=== PATIENT | male | born 1955 | race Caucasian/White ===

== ENCOUNTER 2022-12-29 06:58 | Outpatient (OUT) | payer MEDICARE, SELFPAY ==
--- NOTE | 2022-12-29 | XR_ITS ---
The [address] [address] Patient Name: TRACY IRENE MRN: [id number] date: 1955 Sex: M Assigned Patient Location: CT Current Patient Location: CT Accession/Order Number: [id number] Exam Date: 12/29/2022 08:10 Report Date: 12/29/2022 22:43 At the request of: LEON SNOW Procedure: XR chest 2V PROCEDURE: XR chest 2V DATE: 12/29/2022 7:10 AM CDT COMPARISONS: 12/12/2021 CLINICAL INDICATION: 67 years Male HISTORY OF RENAL CELL CANCER, ELEVATED PSA FINDINGS: The cardiomediastinal silhouette and pulmonary vasculature are within normal limits. The lungs are clear. There is no evidence of pleural effusion or pneumothorax. IMPRESSION: Chest radiograph is within normal limits. Electronically authenticated by: MIKE LITTLE Date: 12/29/2022 22:43
--- NOTE | 2022-12-29 | CT_ITS ---
The [address] [address] Patient Name: TRACY IRENE MRN: [id number] date: 1955 Sex: M Assigned Patient Location: CT Current Patient Location: CT Accession/Order Number: [id number] Exam Date: 12/29/2022 08:15 Report Date: 12/30/2022 09:51 At the request of: LEON SNOW Procedure: CT abdomen pelvis wo con CLINICAL HISTORY: HISTORY OF RENAL CELL CANCER, ELEVATED PSA. History of renal cell carcinoma. EXAMINATION: Unenhanced CT scan of the abdomen and pelvis: 12/29/2022. COMPARISON: Unenhanced CT scan of the abdomen and pelvis: 12/12/2021. TECHNIQUE: 3 mm axial images from lung bases through ischial tuberosities without intravenous, however, with oral contrast were obtained. Sagittal, coronal reconstructions were also performed. FINDINGS: This study overall is limited secondary to lack of intravenous contrast. Within limits the lung bases demonstrate no focal abnormalities. The heart size seems normal. CT ABDOMEN: For a noncontrast study the liver, spleen, gallbladder, pancreas, adrenal glands, left kidney appears normal. The patient has undergone previous right nephrectomy. The abdominal aorta is moderately atherosclerotic. There is no retroperitoneal or mesenteric adenopathy. There is a ventral hernia with omental fat without bowel loops with hernia neck measuring 3.3 cm. The bowel loops are of normal caliber. There is a normal-appearing appendix. There are scattered diverticula in the colon. CT PELVIS: The bladder is normal. The prostate is enlarged. The overall size of the prostate seems to be approximately 4.7 x 4.8 cm. There is no ureterolithiasis. There is no pelvic adenopathy. The visualized soft tissues seem normal. IMPRESSION: 1. No recurrent or metastatic disease in the visualized volume of lower chest, abdomen or pelvis on this noncontrast CT examination. 2. Prior right nephrectomy. 3. Prostatomegaly, stable. Electronically authenticated by: HAMZAH WOLFE Date: 12/30/2022 09:51
[2022-12-29 11:54] LABS: Prostate Specific Antigen Dx 1.86 ng/mL (<=4.00)
== END 2022-12-29 06:59 | disposition home or self-care (01) ==
LOC: CT 06:59
PROVIDERS: PCP Internal Medicine; Visit Provider Urology
DX: R97.20 Elevated prostate specific antigen [PSA] (principal); Z85.528 Personal history of other malignant neoplasm of kidney; Z90.5 Acquired absence of kidney
CPT/HCPCS: 36415; 71046; 74176; 84153

== ENCOUNTER 2024-01-03 11:00 | Outpatient (OUT) | payer MEDICARE, SELFPAY ==
[2024-01-03 12:13] LABS: Prostate Specific Antigen Dx 1.54 ng/mL (<=4.00)
== END 2024-01-03 11:01 | disposition home or self-care (01) ==
LOC: LAB 11:02
PROVIDERS: PCP Internal Medicine; Visit Provider Urology
DX: R97.20 Elevated prostate specific antigen [PSA] (principal); Z80.42 Family history of malignant neoplasm of prostate
CPT/HCPCS: 36415; 84153

== ENCOUNTER 2025-01-01 08:37 | Emergency (ER) | payer MEDICARE, SELFPAY ==
[2025-01-01] VITALS (38 sets, daily range): BP systolic 133–170; BP diastolic 72–80; PULSE 64–99; TEMP 37; O2SAT 91–96; BMI 33.0
--- OUTSIDE RECORDS SUMMARY | 2025-01-01 08:44 | XMS_ITS | Encounter Summary ---
Author Organization [facility] Address [address] [place] [address] Care Team Providers Care Vibrator Equipment Tester Name Role Phone Nino Hammonds MD Unavailable [phone] Nino Hammonds MD Primary Care Provider [phone] Encounter Details Date Type Department Care Team (Late Contact Info) Description 01/13/2023 Abstract [facility] [address] [facility] [address] [place] [phone] Nino Hammonds MD [address] [facility] 110 [place] [address] Social History Tobacco Use Types Packs/Day Years Used Date Smoking Tobacco: Never Assessed PHQ-2 Answer Date Recorded Patient Health Questionnaire-2 Score 0 01/02/2023 Sex and Gender Information Value Date Recorded Sex Assigned at Not on file Legal Sex Male 9:31 PM EDT Gender Identity Not on file Sexual Orientation Not on file documented as of this encounter Plan of Treatment Upcoming Encounters Date Type Department Care Team (Late Contact Info) Description 02/18/2025 10:00 AM EDT Office Visit [facility] [address] [facility] [address] [place] [phone] Nino Hammonds MD [address] [facility] [address] [place] [address] documented as of this encounter Visit Diagnoses Not on filedocumented in this encounter Care Teams Vibrator Equipment Tester Relationship Specialty Start Date End Date Nino Hammonds MD [address] [facility] [address] [place] [address] PCP - ACO Reach 11/29/22 Nino Hammonds MD 112 [facility] 110 [place] [address] PCP - General Internal Medicine 12/26/22 documented as of this encounter
--- OUTSIDE RECORDS SUMMARY | 2025-01-01 08:44 | XMS_ITS | Clinical Summary ---
Author Organization [facility] Address [address] [place] [address] Care Team Providers Care Co Op Name Role Phone Nino Hammonds MD Unavailable [phone] Nino Hammonds MD Primary Care Provider [phone] Allergies No known active allergies Medications Lancet Devices (Autolet) lancing device 1 each by Other route in the morning and 1 each at noon and 1 each in the evening and 1 each before bedtime. Active Lancets (OneTouch Delica Plus [id number]) [facility] USE TWICE DAILY FOR FINGER STICK E11.65 022 Active aspirin 81 MG EC tablet Take 81 mg by mouth Daily Active lisinopril 5 MG tabletIndication s:Mixed hyperlipidemia TAKE 1 TABLET BY MOUTH EVERY DAY 100 tablet 4 024 Active terazosin (Hytrin) 5 MG capsuleIndicatio ns:BPH with urinary obstruction TAKE 1 CAPSULE BY MOUTH EVERY DAY 100 capsule 3 024 Active lovastatin (Mevacor) 20 MG tabletIndication s:Mixed hyperlipidemia TAKE 1 TABLET BY MOUTH AT BEDTIME 100 tablet 3 024 Active insulin regular (NovoLIN R FlexPen) 100 UNIT/ML penIndications:T ype 2 diabetes mellitus with diabetic neuropathy, with long-term current use of insulin (HCC) INJECT 30 UNITS SUBCUTANEOUSLY ONCE IN THE EVENING BEFORE MEAL 30 mL 3 024 Active finasteride (Proscar) 5 MG tabletIndication s:Benign prostatic hyperplasia with lower urinary tract symptoms, symptom details unspecified TAKE 1 TABLET BY MOUTH EVERY DAY IN THE MORNING 90 tablet 4 025 Active insulin glargine-lixisen atide (Soliqua) 100-33 UNT-MCG/ML penIndications:U ncontrolled type 2 diabetes mellitus with hyperglycemia (HCC) Inject 60 Units under the skin in the morning. Inject before meals. 15 mL 11 Active insulin pen needle (BD Pen Needle Mery 2nd Gen) 32G x 4 mm miscIndications: Type 2 diabetes mellitus with diabetic neuropathy, with long-term current use of insulin (HCC) USE TWICE A DAY DIRECTED 200 each 3 Active finasteride (Proscar) 5 MG tabletIndication s:Benign prostatic hyperplasia with lower urinary tract symptoms, symptom details unspecified TAKE 1 TABLET BY MOUTH EVERY DAY IN THE MORNING 90 tablet 4 024 2024 Discontinued insulin glargine-lixisen atide (Soliqua) 100-33 UNT-MCG/ML penIndications:U ncontrolled type 2 diabetes mellitus with hyperglycemia (HCC) INJECT 60 UNITS UNDER THE SKIN IN THE MORNING BEFORE MEALS 18 mL 024 2024 Discontinued insulin pen needle (BD Pen Needle Mery 2nd Gen) 32G x 4 mm miscIndications: Type 2 diabetes mellitus with diabetic neuropathy, with long-term current use of insulin (HCC) USE TWICE A DAY DIRECTED 100 each 3 024 2024 Discontinued glucose blood (LDL TechnologyTouch Ultra) test stripIndications :Type 2 diabetes mellitus with diabetic neuropathy, unspecified whether residential insulin use (HCC) 1 each by Other route in the morning and 1 each in the evening and 1 each before bedtime. Use as instructedTEST 3 TIMES DAILY DIRECTED E11.65. 300 strip 2 025 2024 insulin glargine-lixisen atide (Soliqua) 100-33 UNT-MCG/ML penIndications:U ncontrolled type 2 diabetes mellitus with hyperglycemia (HCC) INJECT 60 UNITS UNDER THE SKIN IN THE MORNING BEFORE MEALS 15 mL 025 2024 Discontinued(R eorder) Active Problems Problem Noted Date Diagnosed Date Obesity, Class I, BMI 30-34.9 02/24/2024 Elevated PSA 03/04/2023 Protein in urine 03/04/2023 Pulmonary embolism 03/04/2023 History of colon polyps 03/04/2023 BPH with obstruction/lower urinary tract symptom s 12/29/[address] 12/29/2022 Hypercoagulable state ([facility]) 12/29/2022 Other obstructive and reflux uropathy 12/29/2022 Stage 3b chronic kidney disease 12/29/2022 Tubulovillous adenoma of colon 12/29/2022 Type 2 diabetes mellitus wit h diabetic neuropathy, with long-term current use of insulin 12/29/2022 Mixed hyperlipidemia 10/31/2018 Diabetic peripheral neuropat hy associated with type 2 diabetes mellitus 10/31/2018 Benign neoplasm of colon 10/31/2018 History of primary malignant neoplasm of kidney 10/31/2018 long-term current use of anticoagulant therapy 0 10/31/2018 History of DVT (deep vein thrombosis) 10/30/2018 History of pulmonary embolism 10/30/2018 Resolved Problems Problem Noted Date Diagnosed Date Resolved Date Anticoagulated 03/04/2023 07/31/2023 Family history of prostate cancer 03/04/2023 07/31/2023 Hesitancy 03/04/2023 07/31/2023 Weak urinary stream 03/04/2023 07/31/19 24 Renal mass 12/29/2022 07/31/2023 Type 2 diabetes mellitus 12/12/2018 Uncontrolled type 2 diabetes mellitus with hyperglycemia 12/12/2018 07/31/2023 Stage 3 chronic kidney disease 10/31/2018 07/31/2023 Hyperglycemia due to type 2 diabetes mellitus 10/31/1907/31/2023 Encounters Date Type Department Care Team Description 12/24/2024 Refill [facility] [address] [place] [address] [place] [address] Nino Hammonds MD Type 2 diabetes mellitus with diabetic neuropathy, with long-term current use of insulin ([facility]) 12/17/2024 Telephone [facility] [address] [facility] [address] [place] [address] Nino Hammonds MD 12/17/2024 Refill [facility] [address] [facility] [address] [place] [address] Nino Hammonds MD Benign prostatic hyperplasia with lower urinary tract symptoms, symptom details unspecified 12/09/2024 Refill [facility] [address] [facility] [address] [place] [address] Nino Hammonds MD Uncontrolled type 2 diabetes mellitus with hyperglycemia (HCC) 10/26/2024 9:00 AM EDT Office Visit [facility] [address] [facility] [address] [place] [address] Nino Hammonds MD Routine general medical examination at health care facility (Primary Dx); ACP (advance care planning); Type 2 diabetes mellitus with diabetic chronic kidney disease (HCC); Chronic kidney disease, stage 3b (CMS-HCC); Chronic pulmonary embolism (HCC) 10/26/2024 Abstract [facility] [address] [facility] [address] [place] [address] Nino Hammonds MD 10/26/2024 Bamboo flowsheet [facility] [address] [facility] [address] [place] [address] Nino Hammonds MD 10/26/2024 Travel from Last 3 Months Immunizations Immunization Administration Dates Next Due Influenza, High Dose Seasona l, Preservative Free 05/04/2022,05/31/2021 Influenza, High-dose Seasona l, Quadrivalent, Preservative Free 06/25/2024 Influenza, Seasonal, Quadriv alent, Adjuvanted 07/14/2020 Influenza, injectable, quadr ivalent, preservative free 07/14/2020 Pfizer Purple Cap SARS-CoV-2 Vaccination 021,09/29/2020,09/09/2020 Family History Medical History Relation Name Comments Arthritis Father Cancer Father Arthritis Mother Diabetes Mother Stroke Mother Relation Name Status Comments Father Mother Other Spouse Alive Social History Tobacco Use Types Packs/Day Years Used Date Smoking Tobacco: Former Cigarettes 3 40 0 07/08/1959 - 07/08/1999 Smokeless Tobacco: Never Alcohol Use Standard Drinks/Week Comments Yes 0 (1 standard drink = 0.6 oz pur e alcohol) PHQ-2 Answer Date Recorded Patient Health Questionnaire-2 Score 0 10/26/2024 Sex and Gender Information Value Date Recorded Sex Assigned at Not on file Legal Sex Male 9:31 PM EDT Gender Identity Not on file Sexual Orientation Not on file Last Filed Vital Signs Vital Sign Reading Time Taken Comments Blood Pressure 130/76 10/26/2024 8:56 AM EDT Pulse 66 10/26/2024 8:56 AM EDT Temperature - - Respiratory Rate 16 10/30/2023 10:27 AM EDT Oxygen Saturation 98% 10/26/2024 8:56 AM EDT Inhaled Oxygen Concentration - - Weight 111 kg (244 lb) 10/26/2024 8:56 AM EDT Height 185.4 cm (6' 1 ) 10/26/2024 8:56 AM EDT Body Mass Index 32.19 10/26/2024 8:56 AM EDT Plan of Treatment Upcoming Encounters Date Type Department Care Team (Late st Contact Info) Description 02/18/2025 10:00 AM EDT Office Visit [facility] 112 [facility] 110 [place] [address] Nino Hammonds MD 112 [facility] 110 [place], [place] [id number] Health Maintenance Due Date Last Done Comments CT Colonography 1955 FIT-DNA 1955 FIT 1955 FOBT 1955 Sigmoidoscopy 1955 Pneumococcal Vaccine: 65+ Ye ars (1 of 2 - PCV) 1973 Diabetes: Hemoglobin A1C 01/25/2025 025, 06/25/2024, 02/24/2024, Additional history exists Diabetes: Urine Protein Screening 02/13/2025 024 Medicare Annual Wellness (AWV) 10/26/2025 0 10/26/2024, 07/31/2023, 01/02/2023, Additional history exists Diabetes: Retinopathy Screening 12/30/2025 12/31/2023, 11/15/2021, 11/19/2019, Additional history exists Colonoscopy 03/13/2033 03/13/2023, 0912/2022, 03/13/2023, Additional history exists Colorectal Cancer Screening 03/13/2033 Influenza Vaccine Completed 06/25/2024, , 05/31/2021, Additional history exists Procedures Procedure Name Priority Date/Time Associated Diagnosis Comments POCT GLYCATED HEMOGLOBIN, TOTAL Routine 10/26/2024 9:49 AM EDT Type 2 diabetes mellitus with diabetic chronic kidney disease (HCC) MICROALBUMIN / CREATININE URINE RATIO Routine 02/14/2024 8:21 AM EDT Type 2 diabetes mellitus with diabetic neuropathy, with long-term current use of insulin (HCC) DIABETIC RETINOPATHY SCREENING - OU - BOTH EYES Routine 12/31/2023 COLONOSCOPY DIAGNOSTIC Routine 03/13/2023 from Last 3 Months or Most Recently Relevant to Health Maintenance Results * POCT Glycated hemoglobin, total (10/26/2024 9:49 AM EDT) Hemoglobin A1C 7.2 Blood 10/26/2024 9:49 AM EDT Nino Hammonds MD POINT OF CARE TEST ENTER/EDIT ORDERABLES Final Result * (ABNORMAL) Microalbumin / creatinine urine ratio (02/14/2024 8:21 AM EDT) CREATININE, RANDOM URINE 74 20 - 320 mg/dL [facility] ALBUMIN, URINE 18.8 See Note: mg/dL [facility] Comment: Reference Range: Reference Range Not established ALBUMIN/CREATININE RATIO, RANDOM URINE 254(H) <30 mg/g creat [facility] Comment: The ADA defines abnormalities in albumin excretion as follows: Albuminuria Category Result (mg/g creatinine) Normal to Mildly increased <30 Moderately increased 30-299 Severely increased > OR = 300 The ADA recommends that at least two of three specimens collected within a 3-6 month period be abnormal before considering a patient to be within a diagnostic category. Urine Urine specimen obtained by clean catch procedure / Unknown 02/14/2024 8:21 AM EDT 02/14/2024 3:12 PM EDT Narrative [facility] - 02/17/2024 3:53 PM EDT FASTING:YES FASTING: YES Resulting Agency Comment Performing Organization Information Site ID: [id number] Name: [facility] Address: [address] [place] [address], [address] [place], [place] [id number] Director: Nathanael Muñoz MD Nino Hammonds MD LAB URINE ORDERABLES Final Res ult [facility] * Diabetic Retinopathy Screening - OU - Both Eyes (12/31/2023) RESULTS ndr Anatomical Region Laterality Modality Head Other 12/31/2023 Nino Hammonds MD OPHTH PHOTOGRAPHY Final Result * COLONOSCOPY DIAGNOSTIC (03/13/2023) Anatomical Region Laterality Modality Radiographic Verna ging 03/13/2023 Nino Hammonds MD IMG XR PROCEDURES Final Result from Last 3 Months or Most Recently Relevant to Health Maintenance Insurance MEDICARE [employer] Care Teams Co Op Relationship Specialty Start Date End Date Nino Hammonds MD [address] [address] PCP - ACO Reach 11/29/22 Nino Hammonds MD [address] [address] PCP - General Internal Medicine 12/26/22
--- OUTSIDE RECORDS SUMMARY | 2025-01-01 08:44 | XMS_ITS | Encounter Summary ---
Author Organization [facility] Address [address] [place] [address] Care Team Providers Care Blanket Weaver Name Role Phone Nino Hammonds MD Unavailable [phone] Nino Hammonds MD Primary Care Provider [phone] Reason for Visit * Reason Comments Med Refill Encounter Details Date Type Department Care Team (Late Contact Info) Description 12/24/2024 Refill [facility] 112 [facility] 110 [place] [address] Nino Hammonds MD 112 [facility] 110 [place] [address] Type 2 diabetes mellitus with diabetic neuropathy, with long-term current use of insulin ([facility]) Social History Tobacco Use Types Packs/Day Years [...] Office Visit [facility] [address] [facility] 110 [place] [address] Nino Hammonds MD 112 [facility] 110 [place], [place] [phone] documented as of this encounter Visit Diagnoses Diagnosis Type 2 diabetes mellitus with diabetic neuropathy, with long-term current use of insulin (HCC) documented in this encounter Care Teams Blanket Weaver Relationship Specialty Start Date End Date Nino Hammonds MD [address] [address] PCP - ACO Reach 11/29/22 Nino Hammonds MD [address] [address] PCP - General Internal Medicine 12/26/22 documented as of this encounter
--- OUTSIDE RECORDS SUMMARY | 2025-01-01 08:44 | XMS_ITS | Encounter Summary ---
Author Organization [facility] Address [address] [place] [address] Care Team Providers Care Supervisor Fitting Name Role Phone Nino Hammonds MD Unavailable [phone] Nino Hammonds MD Primary Care Provider [phone] Encounter Details Date Type Department Care Team (Late st Contact Info) Description 10/26/2024 Abstract [facility] [address] [facility] 110 [place] [phone] Nino Hammonds MD [address] [facility] 110 [place], [place] [address] Social History Tobacco Use Types Packs/Day Years [...] on file documented as of this encounter Functional Status * Over the past 2 weeks, how often have you been bothered by any of the following problems? Question Answer Date of Assessment Author Little interest or pleasure in doing things Not at all 10/26/2024 8:00 AM Denita Rao LP N Feeling down, depressed, or hopeless Not at all 10/26/2024 8:00 AM EDT Denita Maxwell LP N Patient Health Questionnaire -2 Score 0 10/26/2024 8:00 AM EDT Dukles, Denita, LP N documented as of this encounter Plan of Treatment Upcoming Encounters Date Type Department Care Team (Late st Contact Info) Description 02/18/2025 10:00 AM EDT Office Visit [facility] [address] [facility] [address] [place] [address] Nino Hammonds MD [address] [facility] [address] [place] [address] documented as of this encounter Visit Diagnoses Not on filedocumented in this encounter Care Teams Supervisor Fitting Relationship Specialty Start Date End Date Nino Hammonds MD [address] [facility] [address] [place] [address] PCP - ACO Reach 11/29/22 Nino Hammonds MD [address] [facility] [address] [place] [address] PCP - General Internal Medicine 12/26/22 documented as of this encounter
--- OUTSIDE RECORDS SUMMARY | 2025-01-01 08:44 | XMS_ITS | Encounter Summary ---
Author Organization [facility] Address [address] [place] [address] Care Team Providers Care Smoke Eater Name Role Phone Nino Hammonds MD Unavailable [phone] Nino Hammonds MD Primary Care Provider [phone] Encounter Details Date Type Department Care Team ([facility] Contact Info) Description 06/12/2023 Abstract [facility] 112 [facility] 110 [place] [address] Nino Hammonds MD 112 [facility] 110 [place] [address] Social History Tobacco Use Types Packs/Day Years Used Date Smoking Tobacco: Former Cigarettes Q uit: 07/08/1999 Smokeless Tobacco: Never Alcohol Use Standard [...] EDT Office Visit [facility] 112 [facility] 110 [place] [address] Nino Hammonds MD 112 [facility] 110 [place] [address] documented as of this encounter Visit Diagnoses Not on filedocumented in this encounter Care Teams Smoke Eater Relationship Specialty Start Date End Date Nino Hammonds MD [address] [facility] 110 [place] [address] PCP - ACO Reach 11/29/22 Nino Hammonds MD [address] [facility] 110 [place] [address] PCP - General Internal Medicine 12/26/22 documented as of this encounter
--- OUTSIDE RECORDS SUMMARY | 2025-01-01 08:44 | XMS_ITS | Encounter Summary ---
Author Organization [facility] Address [address] [place] [address] Care Team Providers Care Hospital Ward Clerk Name Role Phone Nino Hammonds MD Unavailable [phone] Nino Hammonds MD Primary Care Provider [phone] Encounter Details Date Type Department Care Team ([facility] Contact Info) Description 07/10/2023 Abstract [facility] 112 [facility] 110 [place] [address] Nino Hammonds MD 112 [facility] 110 [place] [address] Social History Tobacco Use Types Packs/Day Years [...] Office Visit [facility] [address] [facility] 110 [place] [address] Nino Hammonds MD 112 [facility] 110 [place] [address] documented as of this encounter Visit Diagnoses Not on filedocumented in this encounter Care Teams Hospital Ward Clerk Relationship Specialty Start Date End Date Nino Hammonds MD [address] [facility] 110 [place] [address] PCP - ACO Reach 11/29/22 Nino Hammonds MD [address] [facility] [address] [place] [address] PCP - General Internal Medicine 12/26/22 documented as of this encounter
--- OUTSIDE RECORDS SUMMARY | 2025-01-01 08:44 | XMS_ITS | Encounter Summary ---
Author Organization [facility] Address [address] [place] [address] Care Team Providers Care Dry Cleaning Machine Operator Name Role Phone Nino Hammonds MD Unavailable [phone] Nino Hammonds MD Primary Care Provider [phone] Encounter Details Date Type Department Care Team ([facility] Contact Info) Description 08/06/2023 Abstract [facility] 112 [facility] 110 [place] [address] Nino Hammonds MD 112 [facility] 110 [place] [address] Social History Tobacco Use Types Packs/Day Years [...] Upcoming Encounters Date Type Department Care Team ([facility] Contact Info) Description 02/18/2025 10:00 AM EDT Office Visit [facility] [address] [facility] 110 [place] [address] Nino Hammonds MD 112 [facility] 110 [place] [address] documented as of this encounter Visit Diagnoses Not on filedocumented in this encounter Care Teams Dry Cleaning Machine Operator Relationship Specialty Start Date End Date Nino Hammonds MD [address] [facility] 110 [place] [address] PCP - ACO Reach 11/29/22 Nino Hammonds MD [address] [facility] [address] [place] [address] PCP - General Internal Medicine 12/26/22 documented as of this encounter
--- OUTSIDE RECORDS SUMMARY | 2025-01-01 08:44 | XMS_ITS | Encounter Summary ---
Author Organization [facility] Address [address] [place] [address] Care Team Providers Care Coat Cutter Name Role Phone Nino Hammonds MD Unavailable [phone] Nino Hammonds MD Primary Care Provider [phone] Encounter Details Date Type Department Care Team ([facility] Contact Info) Description 02/25/2024 Abstract [facility] [address] [facility] [address] [place] [id number] Nino Hammonds MD 112 [facility] [address] [place] [address] Social History Tobacco Use Types Packs/Day Years [...] Upcoming Encounters Date Type Department Care Team ([facility] Contact Info) Description 02/18/2025 10:00 AM EDT Office Visit [facility] [address] [facility] [address] [place] [phone] Nino Hammonds MD 112 [facility] [address] [place] [address] documented as of this encounter Visit Diagnoses Not on filedocumented in this encounter Care Teams Coat Cutter Relationship Specialty Start Date End Date Nino Hammonds MD [address] [facility] [address] [place] [address] PCP - ACO Reach 11/29/22 Nino Hammonds MD [address] [facility] [address] [place] [address] PCP - General Internal Medicine 12/26/22 documented as of this encounter
--- OUTSIDE RECORDS SUMMARY | 2025-01-01 08:45 | XMS_ITS | CCD ---
Author Organization [facility] Care Team Providers Care 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 Name Role Phone NINO HAMMONDS Primary Care Physician DR NINO HAMMONDS Primary Care Unavailable EDY, DR QUINTERO Admitting Unavailable EDY, DR QUINTERO Attending Unavailable LUCIANA, DR THOMAS Primary Care Unavailable EDY, DR QUINTERO Admitting Unavailable EDY, DR QUINTERO Consulting Unavailable EDY, DR QUINTERO Attending Unavailable BRODERICK, DR TUAN Dalton Consulting Unavailable AIDAN HDEZ Consulting Unavailable Nino Hammonds MD Unavailable Nino Hammonds MD Primary Care Provider NINO HAMMONDS Attending Unavailable NINO HAMMONDS Attending Unavailable NINO HAMMONDS Attending Unavailable NINO HAMMONDS Attending Unavailable Clifton JURADO Attending Unavailable Clifton JURADO Attending Unavailable Medications Current Medications Medication Drug Class(es) Dates Sig (Normalized) Sig (Original) aspirin 81 mg oral tablet (7 sources) Platelet Aggregation Inhibitor, Nonsteroidal Anti-inflammatory Drug Start: 06-26-2024 take 81 mg by mouth once daily aspirin 81 mg, Oral, Daily, Refills(s) 0 Start Date: 06/26/24 Status: Ordered take 1 tablet by mouth once dirk y aspirin 81 MG EC tablet Take 81 mg by mouth Daily Active finasteride 5 mg oral tablet (10 sources) 5-alpha Reductase Inhibitor Start: 12-04-2020 take 1 tablet by mouth once daily in the morning finasteride (Proscar) 5 MG tablet Indications: Benign prostatic hyperplasia with lower urinary tract symptoms, symptom details unspecified TAKE 1 TABLET BY MOUTH EVERY DAY IN THE MORNING 90 tablet 4 12/17/2023 Active 3 ml insulin glargine 100 unt/ml / lixisenatide 0.033 mg/ml pen injector (10 sources) Insulin Analog Start: 02-18-2024 insulin glargine-lixisenati de (Soliqua) 100-33 UNT-MCG/ML pen Indications: Uncontrolled type 2 diabetes mellitus with hyperglycemia (CMS/HCC) INJECT 60 UNITS UNDER THE SKIN IN THE MORNING BEFORE MEALS 18 mL 11 02/18/2024 Active Start: 01-23-2021 Soliqua 100/33 subcutaneous solution unit(s), SubCutaneous, Refills(s) 0 Start Date: 01/23/21 Status: Ordered 3 ml insulin lispro 100 unt/ml pen injector (2 sources) Insulin Analog Start: 01-28-2023 HumaLOG KwikPen 100 units/mL injectable solution Refills(s) 0 Start Date: 01/28/23 Status: Ordered 3 ml insulin, regular, human 100 unt/ml pen injector (6 sources) Insulin Start: 05-15-2024 insulin regular (NovoLIN R FlexPen) 100 UNIT/ML pen Indications: Type 2 diabetes mellitus with diabetic neuropathy, with long-term current use of insulin (CMS/HCC) INJECT 30 UNITS SUBCUTANEOUSLY ONCE IN THE EVENING BEFORE MEAL 30 mL 3 05/15/2024 Active lisinopril 5 mg oral tablet (10 sources) Angiotensin Converting Enzyme Inhibitor Start: 07-24-2019 take 1 tablet by mouth once daily lisinopril 5 MG tablet Indications: Mixed hyperlipidemia (CMS/HCC) TAKE 1 TABLET BY MOUTH EVERY DAY 100 tablet 4 03/16/2024 Active lovastatin 20 mg oral tablet (10 sources) HMG-CoA Reductase Inhibitor Start: 07-24-2019 take 1 tablet by mouth at bedtime lovastatin (Mevacor) 20 MG tablet Indications: Mixed hyperlipidemia (CMS/HCC) TAKE 1 TABLET BY MOUTH AT BEDTIME 100 tablet 3 05/15/2024 Active rivaroxaban 10 mg oral tablet (3 sources) Factor Xa Inhibitor Start: 01-23-2021 take 1 tablet by mouth once daily Xarelto 10 mg oral tablet 10 mg = 1 tab(s), Oral, Daily, Refills(s) 0 Start Date: 01/23/21 Status: Ordered terazosin 5 mg oral capsule (10 sources) alpha-Adrenergic Juarez Start: 07-24-2019 take 1 capsule by mouth once daily terazosin (Hytrin) 5 MG capsule Indications: BPH with urinary obstruction TAKE 1 CAPSULE BY MOUTH EVERY DAY 100 capsule 3 05/15/2024 Active Problems Active Problems Problem Classification Problem Date Documented Date Episodic/Chronic Administrative/socia l admission (4 sources) Counseling procedure with explicit context; 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: [Dietary counseling and surveillance] Episodic Cancer of kidney and renal pelvis (4 sources) Malignant tumor of kidney 07-23-2019 Chronic Chronic kidney disease (14 sources) Chronic kidney disease stage 3B ; 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: [Stage 3b chronic kidney disease (HCC)] Onset: 9 Resolved: 4 12-29-2022 Chronic Coagulation and hemorrhagic disorders (6 sources) Hypercoagulability state; 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: [Other primary thrombophilia] Onset: 3 12-29-2022 Chronic Diabetes mellitus with complications (20 sources) Peripheral neuropathy due to type 2 diabetes mellitus; 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: [Type 2 diabetes mellitus with diabetic polyneuropathy] Onset: 9 Resolved: 4 03-04-2023 Chronic Diabetes mellitus without complication (4 sources) Glycosuria 01-22-2020 Episodic Disorders of lipid metabolism (10 sources) Hyperlipidemia; 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: [Mixed hyperlipidemia] Onset: 9 01-12-2019 Chronic Hyperplasia of prostate (16 sources) Benign prostatic hypertrophy with outflow obstruction; 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: [Benign prostatic hyperplasia with lower urinary tract symptoms] Onset: 2 Chronic Immunizations and screening for infectious disease (2 sources) Needs influenza immunization; 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: [Encounter for immunization] 06-25-2024 Episodic Other aftercare (1 source) Long-term current use of insulin; 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: [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] Episodic Other circulatory disease (6 sources) Inferior vena cava filter in situ; 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: [Presence of other vascular implants and grafts] Onset: 3 12-29-2022 Chronic Other diseases of kidney and ureters (1 source) Other specified disorders of kidney and ureter; 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: [OTHER SPEC DISORDERS KIDNEY URETER] Onset: 2 Chronic Other nutritional; endocrine; and metabolic disorders (6 sources) Obese class I; 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: [Obesity, Class I, BMI 30-34.9] Onset: 4 02-24-2024 Chronic Pulmonary heart disease (6 sources) Chronic pulmonary embolism; 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: [Chronic pulmonary embolism] 07-23-2019 Chronic Residual codes; unclassified (2 sources) Family history of cancer; 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: [Family history of malignant neoplasm of prostate] Onset: 2 Episodic Unclassified (4 sources) Drug therapy finding 07-24-2019 Past or Other Problems Problem Classification Problem Date Documented Da te Episodic/Chronic Cancer of kidney and renal pelvis (12 sources) History of malignant neoplasm of kidney; 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: [Personal history of other malignant neoplasm of kidney] Onset: 10-31-2018 Episodic Diabetes mellitus without complication (16 sources) Diabetes mellitus; 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: [Type 2 diabetes mellitus] Onset: 12-12-2018 Resolved: 07-31-2023 07-23-2019 Chronic Genitourinary symptoms and ill-defined conditions (20 sources) Delay when starting to pass urine; 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: [Poor stream of urine] Onset: 03-04-2023 Resolved: 07-31-2023 01-12-2019 Episodic Other aftercare (6 sources) Long-term current use of anticoagulant; 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: [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) use of anticoagulants] Onset: 10-31-2018 03-04-2023 Episodic Other aftercare (6 sources) Drug therapy finding; 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: [alf (current) use of anticoagulants] Onset: 03-04-2023 Resolved: 07-31-2023 07-31-2023 Episodic Other and unspecified benign neoplasm (6 sources) Adenomatous polyp of colon ; 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: [Benign neoplasm of colon, unspecified] Onset: 12-29-2022 12-29-2022 Episodic Other and unspecified benign neoplasm (6 sources) Benign neoplasm of colon; 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: [Benign neoplasm of colon, unspecified] Onset: 10-31-2018 03-04-2023 Episodic Other and unspecified benign neoplasm (6 sources) History of polyp of colon; 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: [History of colon polyps] Onset: 03-04-2023 03-04-2023 Episodic Other diseases of kidney and ureters (10 sources) Renal mass; 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: [Other specified disorders of kidney and ureter] Onset: 12-29-2022 Resolved: 07-31-2023 01-12-2019 Chronic Other diseases of kidney and ureters (6 sources) Disorder of urinary tract; 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: [Other obstructive and reflux uropathy] Onset: 12-29-2022 12-29-2022 Episodic Other screening for suspected conditions (not mental disorders or infectious disease) (16 sources) Raised prostate specific antigen; 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: [Elevated prostate specific antigen [PSA]] Onset: 12-12-2021 Episodic Phlebitis; thrombophlebitis and thromboembolism (6 sources) H/O: Deep vein thrombosis; 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: [Personal history of other venous thrombosis and embolism] Onset: 10-30-2018 03-04-2023 Episodic Pulmonary heart disease (16 sources) Pulmonary embolism; 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: [H/O: pulmonary embolus] Onset: 10-30-2018 01-12-2019 Episodic Residual codes; unclassified (10 sources) Family history of prostate cancer; 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: [Family history of malignant neoplasm of prostate] Onset: 03-04-2023 Resolved: 07-31-2023 01-12-2019 Episodic Results Test Name Value Interpretation Reference Range Facil ity Reminderson 11-12-2024 Reminders Reminders From: Deanna Rosas To: EU - Recallyomi Jurado; Sent: 06/26/2024 11:45:55 EST Show up: 10/06/2024 11:45:00 EDT Subject: ct scan Due Date/Time: 11/02/2024 11:45:00 EDT Reminder/Recall Pt needs Ct scan Abd/Pelvis sched for December 2024 Orders faxed to [facility] today and pt was notified. Will monitor [facility] has order and Pt office appointment is now 06/28/25. Normal [facility] - Hematology and Cell countson 10-26-2024 HbA1c (Bld) [Mass fraction] 7.2 % [employer] No Panel Informationon 10-26 [employer] Ambulatory Visit Summaryon 1 08-27-2023 Ambulatory Visit Summary Ambulatory Visit Summary TRACY CARRILLO Anthony :1955 Visit Date:06/26/2024 Ambulatory Visit Instructions Your Diagnosis Elevated PSA H/O renal cell cancer BPH with urinary obstruction Family history of prostate cancer Your Care Team Attending Physician - EDY FOX, Clifton Reilly Primary Care Physician - LUCIANA FOX, NINO Elizondo This Is Your Medications List finasteride (finasteride 5 mg Tab) Contact prescribing physician if questions or concerns aspirin insulin glargine-lixisenatide (Soliqua 100/33 subcutaneous solution) insulin lispro (HumaLOG KwikPen 100 units/mL injectable solution) lisinopril (lisinopril 5 mg Tab) lovastatin (lovastatin 20 mg Tab) terazosin (terazosin 5 mg Cap) Procedures Performed Transrectal biopsy of prostate using ultrasound (US) guidance (06/22/2014), Transrectal biopsy of prostate using ultrasound (US) guidance (03/16/2014), Nephrectomy (10/16/2012). Discharge Vitals Temperature (Oral) 37 ???C Heart Rate (Peripheral) 78 Respiratory Rate 18 Blood Pressure 155/78 Height 73 in Height 185 cm Weight 246.917 lb Weight 112 kg BMI 32.72 What to do next Scheduled Follow-Up Appointments Saturday 9:15 AM EST With: Clifton JURADO MD Where: [facility] [address] [place] [address]- You Need to Schedule the Following Appointments Follow Up with Clifton JURADO MD, URL When: Where: [address] [place] [address]- Medications What How Much When Instructions Unchanged finasteride (finasteride 5 mg Tab) 1 Tablets By Mouth Every day Unchanged aspirin 81 Milligram By Mouth Every day Contact prescribing physician if questions or concerns Unchanged insulin glargine-lixisenatide (Soliqua 100/ 33 subcutaneous solution) Subcutaneous Contact prescribing physician if questions or concerns Unchanged insulin lispro (HumaLOG KwikPen 100 units/ mL injectable solution) Contact prescribing physician if questions or concerns Unchanged lisinopril (lisinopril 5 mg Tab) 1 Tablets By Mouth Every day Contact prescribing physician if questions or concerns Unchanged lovastatin (lovastatin 20 mg Tab) 1 Tablets By Mouth Every day Contact prescribing physician if questions or concerns Unchanged terazosin (terazosin 5 mg Cap) 1 Capsules By Mouth Once a day (at bedtime) Contact prescribing physician if questions or concerns Allergies No Known Allergies Problems Ongoing - Any problem that you are currently receiving treatment for. Anticoagulated BPH with urinary obstruction Elevated PSA Family history of prostate cancer Glucosuria H/O renal cell cancer Hesitancy Hyperlipidemia Protein in urine Pulmonary embolism Renal mass Type 2 diabetes mellitus Weak urinary stream Historical - Any problem that you are no longer receiving treatment for. BPH - benign prostatic hyperplasia Chronic pulmonary embolism. Diabetes mellitus Renal cancer Patient Survey You may receive a survey via text or e-mail asking about your office visit. Please share your experience with us by completing your survey. We appreciate your feedback and thank you for choosing us for your care. Education Materials Prostate Cancer Screening Prostate cancer screening is testing that is done to check for the presence of prostate cancer in men. The prostate gland is a walnut-sized gland that is located below the bladder and in front of the rectum in males. The function of the prostate is to add fluid to semen during ejaculation. Prostate cancer is one of the most common types of cancer in men. Who should have prostate cancer screening? Screening recommendations vary based on age and other risk factors, as well as between the professional organizations who make the recommendations. In general, screening is recommended if: ??? You are age 50 to 70 and have an average risk for prostate cancer. You should talk with your health care provider about your need for screening and how often screening should be done. Because most prostate cancers are slow growing and will not cause , screening in this age group is generally reserved for men who have a 10- to 15-year life expectancy. ??? You are younger than age 50, and you have these risk factors: ? Having a father, brother, or uncle who has been diagnosed with prostate cancer. The risk is higher if your family member's cancer occurred at an early age or if you have multiple family members with prostate cancer at an early age. ? Being a male who is Black or is of Rohit or sub-Saharan descent. In general, screening is not recommended if: ??? You are younger than age 40. ??? You are between the ages of 40 and 49 and you have no risk factors. ??? You are 70 years of age or older. At this age, the risks that screening can cause are greater than the ridge (more content not included)... Normal [facility] Urology Office/Clinic Noteon 06-26-2024 Urology Office/Clinic Note Urology Office/Clinic Note Chief Complaint f/u PSA HPI Staff 15 mos w/ PSA. Previous dx: h/o RCC [S/p R nephrectomy 2013], BPH with urinary obstruction, elevated PSA, fam hx of pros ca [brother]. *Finasteride 5mg QD and Terazosin 5mg QD PSA 12/12/21 - 1.32 12/29/22 - 1.86 01/03/24 - 1.54 (3.08) Dysuria: denies Incomplete bladder emptying: denies Hematuria: denies Frequency: every couple hours Urgency: denies Nocturia: 1x per night Stream: if he has been sitting for awhile, his stream is slow to start and might stop, but if hes active has a strong stream Leaking: denies Post void dripping: denies Wearing pads/ Depends: denies Urge incontinence: denies Stress incontinence: denies Incontinence without Sensory Awareness: denies Abdominal pain: denies Flank pain: denies Sexual complaints: denies History of Present Illness Tests reviewed: reviewed UA and PSA. I have reviewed the previous health record information and history for this patient from Dr. Jurado I have reviewed and verified the staff HPI to be accurate for this encounter. There have been no associated fever, chills, flank pain, or blood in the urine. Denies any urinary infections since last encounter. Review of Systems PHQ Score Initial Depression Screen Score: 0 SCORE ROS - Provider Constitutional: denies weight loss, denies hot flashes. Eyes: denies eye problems. Gastrointestinal: denies nausea, denies vomiting. Cardiovascular: denies chest pain or angina. Integumentary: no dryness Musculoskeletal: denies musculoskeletal symptoms. ENMT: denies otolaryngeal symptoms. Respiratory: no shortness of breath. Heme/Lymph: denies easy bleeding tendency, denies easy bruising tendency. Psychiatric: no confusion, no anxiety. Genitourinary: See HPI. Physical Exam Vitals & Measurements T: 37 ???C(Oral) HR: 78(Peripheral) RR: 18 BP: 155/78 HT: 73 in HT: 185 cm WT: 112 kg WT: 246.917 lb BMI: 32.72 General Appearance: alert, no distress, well nourished, well developed male. Assessment/Plan 1. Elevated PSA (R97.20: Elevated prostate specific antigen [PSA]) PSA 04/06/19 - 2.54 (5.08) 12/12/21 - 1.32 (2.64) 12/29/22 - 1.86 (3.72) 01/03/24 - 1.54 (3.08) S/p neg TRUS/bx 2013. PSA decrease is favorable. Will cont to monitor. -PSA in 12 mos 2. H/O renal cell cancer (Z85.528: Personal history of other malignant neoplasm of kidney) S/p R nephrectomy 2012. CXR 12/29/22 [facility] - no acute abnormality. CT AP wo con 12/29/22 [facility] - no acute abnormality. -CT AP wo con and CXR due 12/2025 3. BPH with urinary obstruction (N40.1: Benign prostatic hyperplasia with lower urinary tract symptoms) CT AP wo con 12/29/22 [facility] - showed enlarged prostate. UA today negative for infection or blood. Taking Finasteride 5mg qd and Terazosin 5mg qd (believes primary care prescribed med). Blood pressure today 155/78. No urinary concerns. Strong stream. Denies incontinence. Empties well. -Cont meds wo changes 4. Family history of prostate cancer (Z80.42: Family history of malignant neoplasm of prostate) Brother. Follow-up With When Contact Information EDY FOX, Clifton Reilly, URL [address] [place] [address]- Additional Instructions: 1 year w/ PSA Patient Education Prostate Cancer Screening I, Frida Jameson, personally scribed for Dr. Jurado on 06/26/2024 11:54:58. . Documentation recorded by the scribe, Frida Jameson, accurately reflects the services(s) I performed and decisions made by me. Authenticated by Dr. Jurado on 06/26/2024 12:03:25. Problem List/Past Medical History Ongoing Anticoagulated BPH with urinary obstruction Elevated PSA Family history of prostate cancer Glucosuria H/O renal cell cancer Hesitancy Hyperlipidemia Protein in urine Pulmonary embolism Renal mass Type 2 diabetes mellitus Weak urinary stream Historical BPH - benign prostatic hyperplasia Chronic pulmonary embolism. Diabetes mellitus Renal cancer Procedure/Surgical History Transrectal biopsy of prostate using ultrasound (US) guidance (06/22/2014), Transrectal biopsy of prostate using ultrasound (US) guidance (03/16/2014), Nephrectomy (10/16/2012). Medications aspirin, 81 mg, Oral, Daily finasteride 5 mg Tab, 5 mg= 1 tab(s), Oral, Daily, 3 refills HumaLOG KwikPen 100 units/mL injectable solution lisinopril 5 mg Tab, 5 mg= 1 tab(s), Oral, Daily lovastatin 20 mg Tab, 20 mg= 1 tab(s), Oral, Daily Soliqua 100/33 subcutaneous solution, SubCutaneous terazosin 5 mg Cap, 5 mg= 1 cap(s), Oral, Once a day (at bedtime) Allergies No Known Allergies Social History Alcohol - Low Risk, 07/23/2019 Substance Abuse - Denies Substance Abuse, 07/24/2019 Never., 06/26/2024 Tobacco - Denies Tobacco Use, 07/24/2019 Former smoker, quit more than 30 days ago Tobacco Use:. Never Smokeless Tobacco Use:., 06/26/2024 Family Histo (more content not included)... Normal [facility] Comment on above: Result Comment: Elec tronically Signed By: Clifton JURADO MD\.br\Date and Time Signed: 06/26/24 12:03 EST\.br\Electronically Co-Signed By: Frida Jameson\.br\Date and Time Co-Signed: 06/26/24 12:00 EST\.br\Electronically Co-Signed By: Frida Jameson\.br\Date and Time Co-Signed: 06/26/24 12:01 EST Laboratory - Hematology and Cell countson 06-25-2024 HbA1c (Bld) [Mass fraction] 7.1 % [facility] [employer] No Panel Informationon 06-25 [facility] Healthcar e CT ABD/PELVIS WO CONon 12-13 CT ABD/PELVIS WO CON EXAMINATION: CT ABD/PELVIS WO CON, 12/12/2021 12:56 PM EDT HISTORY: Renal mass , elevated PSA COMPARISON: 01/07/2020 TECHNIQUE: CT scan of the abdomen and pelvis was performed without IV contrast. CT dose reduction technique was used, including Automated Exposure Control. FINDINGS: LUNG BASES: No visible pulmonary or pleural disease. LIVER: No enlargement, atrophy, abnormal density, or significant focal lesion. BILIARY: Contracted gallbladder PANCREAS: No lesion, fluid collection, ductal dilatation, or atrophy. SPLEEN: No enlargement or focal lesion. ADRENALS: No mass or enlargement. KIDNEYS: Remote right nephrectomy. No recurrent mass in the renal fossa. Normal left kidney. BOWEL/MESENTERY: Colonic diverticulosis. Nonobstructive bowel gas pattern. Normal appendix. AORTA/VASCULAR: Moderate diffuse atherosclerosis. IVC filter. RETROPERITONEUM: No mass or adenopathy. LYMPH NODES: No adenopathy. URINARY BLADDER: No visible focal wall thickening, lesion, or calculus. PELVIC ORGANS: Enlarged prostate gland measuring 4.4 cm in diameter ABDOMINAL WALL: Multiple ventral hernias containing mesenteric fat without strangulation. Multiple surgical anchors and likely mesh placement right lower abdominal/pelvic wall and right inguinal region BONES: No bony lesion or fracture. OTHER: Negative. IMPRESSION: Moderately enlarged prostate gland No acute abnormality Electronically authenticated by: TUAN VILLAFANA Date: 2021-12-13 07:30 Normal [facility] XR CHEST 2 Von 12-12-2021 XR CHEST 2 V EXAM: XR CHEST 2 V HISTORY: Raised prostate specific antigen EXAM: XR CHEST 2 V INDICATION: 66 years old Male Raised prostate specific antigen COMPARISON: None. FINDINGS: The cardiac silhouette is normal. There is no pulmonary edema. The lungs are clear. There is no pneumonia. There is no pneumothorax. There is no abnormal foreign body. IMPRESSION: There is no acute abnormality. Electronically authenticated by: AIDAN HDEZ Date: 2021-12-12 13:39 Normal [facility] Comprehensive Metabolic Pane irlanda 08-30-2021 Albumin [Mass/Vol] 4.7 g/dL Normal 3.6-5.[address] [facility] [employer] Comment on above: Performed By: #### C RICARDO GARCÍA #### [facility] [address], [place] [id number] Albumin/Globulin [Mass ratio] 2.0 {ratio} Normal 1.0-2.5 [facility] [employer] Comment on above: Performed By: #### C RICARDO GARCÍA #### [facility] [address], [place] [id number] ALP [Catalytic activity/Vol] 82 U/L Normal 40-129 [facility] [employer] Comment on above: Performed By: #### C RICKY LIPLindsay #### [facility] [address], [place] [id number] ALT [Catalytic activity/Vol] 21 U/L Normal 9-46 [facility] Specialist Comment on above: Result Comment: 06/07 Female reference range changed. Performed By: #### C RICKY LIPLindsay #### [facility] [address], [place] [id number] Anion gap [Moles/Vol] 17 mmol/L Normal 12-20 [facility] Specialist Comment on above: Result Comment: Effe ctive 07/13/2019 reference range changed. Performed By: #### C RICKY LIPD #### [facility] [address], [place] [id number] AST [Catalytic activity/Vol] 25 U/L Normal 10-40 [facility] Comment on above: Performed By: #### C RICKY LIPLindsay #### [facility] [address], [place] [id number] Bilirubin [Mass/Vol] 0.34 mg/dL Normal 0.30-1.20 [facility] Comment on above: Performed By: #### C RICKY LIPD #### [facility] [address], [place] [id number] BUN/CREA 14 Ratio Normal 6-22 [facility] Comment on above: Performed By: #### C RICKY LIPLindsay #### [facility] [address], [place] [id number] Calcium [Mass/Vol] 9.5 mg/dL Normal 8.6-10.2 [facility] Comment on above: Performed By: #### C RICKY LIPLindsay #### [facility] [address], [place] [id number] Chloride [Moles/Vol] 104 mmol/L Normal 98-107 [facility] Specialist Comment on above: Performed By: #### C RICKY LIPD #### [facility] [address], [place] [id number] CO2 [Moles/Vol] 24 mmol/L Normal 20-31 [facility] Comment on above: Performed By: #### C RICKY LIPD #### [facility] [address], [place] [id number] Creatinine [Mass/Vol] 2.0 mg/dL High 0.7-1.4 [place] [employer] Comment on above: Performed By: #### C RICKY LIPD #### [facility] [address], [place] [id number] eGFRAA 41 mL/min/1.73m2 Low >60 [facility] [place] [facility] Comment on above: Performed By: #### C RICKY, LIPD #### [facility] [address] [facility] [place] [id number] eGFRNAA 34 mL/min/1.73m2 Low >60 [facility] Comment on above: Performed By: #### C RICKY, LIPD #### [facility] [address] [place], [place] [id number] Globulin (S) [Mass/Vol] 2.3 g/dL Normal 1.9-3.7 [facility] Comment on above: Performed By: #### C RICKY LIPD #### [facility] [address] [place], [place] [id number] Glucose [Mass/Vol] 160 mg/dL High 65-[address] [facility] [employer] Comment on above: Result Comment: For FASTING Glucose --- ADA reference ranges: Normal 65-99 mg/dl Prediabetes 100-125 Diabetes >/= 126 Performed By: #### C RICKY LIPLindsay #### [facility] [address] [place], [place] [id number] Potassium [Moles/Vol] 4.9 mmol/L Normal 3.5-5.5 [facility] [employer] Comment on above: Performed By: #### C RICKY, LIPD #### [facility] [address] [place], [place] [id number] Protein [Mass/Vol] 7.0 g/dL Normal 6.1-8.[address] [facility] [employer] Comment on above: Performed By: #### C RICKY, LIPD #### [facility] [address] [facility] [place] [id number] Sodium [Moles/Vol] 140 mmol/L Normal 135-[address] [facility] [employer] Comment on above: Performed By: #### C RICKY, LIPD #### [facility] [address] [facility] [place] [id number] Urea nitrogen [Mass/Vol] 28 mg/dL High 7-25 [place] [employer] Comment on above: Performed By: #### C MP, LIPD #### [facility] [address] [place], [place] [id number] Lip[facility] Panelon 08-30-2021 Cholesterol [Mass/Vol] 151 mg/dL Normal 125-200 [facility] Comment on above: Result Comment: Low risk < 200mg/dL Borderline risk 201-239 mg/dl High risk > or equal to 240 Performed By: #### C MP, LIPD #### [facility] [address] [place], [place] [id number] Cholesterol in HDL [Mass/Vol] 36 mg/dL Low >40 [facility] Comment on above: Result Comment: High Cardiovascular Risk HDL <40 mg/dL Low Cardiovascular Risk HDL > or equal to 60 mg/dl Performed By: #### C RICKY, LIPD #### [facility] [address] [place], [place] [id number] Cholesterol in LDL [Mass/Vol] 87 mg/dL Normal [facility] Comment on above: Result Comment: LDL ATP III CLASSIFICATION LDL less than 100 mg/dl Optimal LDL 100-129 mg/dl Near or above optimal LDL 130-159 Borderline high LDL 160-189 High LDL greater than 189 mg/dl Very High Performed By: #### C MP, LIPD #### [facility] [address] [place], [place] [id number] Cholesterol in VLDL [Mass/Vol] 28 mg/dL Normal [facility] Comment on above: Performed By: #### C MP, LIPD #### [facility] [address] [place], [place] [id number] Cholesterol.total/C holesterol in HDL [Mass ratio] 4 {ratio} Normal [facility] Comment on above: Performed By: #### C MP, LIPD #### [facility] [address] [place], [place] [id number] Triglyceride [Mass/Vol] 138 mg/dL Normal 30-150 [facility] Comment on above: Result Comment: TRIG ATPIII CLASSIFICATIONS TRIG less than 150 mg/dl Normal TRIG 150-199 mg/dl Borderline High TRIG 200-500 mg/dl High TRIG greather than 500 mg/dl Very High Performed By: #### C MP, LIPD #### [facility] [address] [place] [id number] Vital Signs Date Time Vital Sign Value Performing Clinician Facility 10-26-2024 08:56-0400 Body height 185.4 cm Nino Hammonds MD Work Phone: [facility] 10-26-2024 08:56-0400 Body mass index (BMI) [Ratio] 32.19 kg/m2 Nino Hammonds MD Work Phone: [facility] 10-26-2024 08:56-0400 Body weight 110.68 kg Nino Hammonds MD Work Phone: [facility] 10-26-2024 08:56-0400 Diastolic blood pressure 76 mm[Hg] Nino Hammonds MD Work Phone: [facility] 10-26-2024 08:56-0400 Heart rate 66 /min Nino Hammonds MD Work Phone: [facility] 10-26-2024 08:56-0400 SaO2% (BldA) [Mass fraction] 98 % Nino Hammonds MD Work Phone: [facility] 10-26-2024 08:56-0400 Systolic blood pressure 130 mm[Hg] Nino Hammonds MD Work Phone: [facility] 06-26-2024 10:59-0500 Diastolic blood pressure 78 mm[Hg] Clifton JURADO [facility] 06-26-2024 10:59-0500 Heart rate 78 /min Clifton JURADO [facility] 06-26-2024 10:59-0500 Mean blood pressure 104 mm[Hg] Clifton JURADO [facility] 06-26-2024 10:59-0500 Systolic blood pressure 155 mm[Hg] Clifton JURADO [facility] 06-26-2024 10:45-0500 Blood Pressure Location Clifton JURADO [facility] 06-26-2024 10:45-0500 Body temperature 98.6 [degF] Clifton JURADO [facility] 06-26-2024 10:45-0500 Diastolic blood pressure 86 mm[Hg] Clifton JURADO [facility] 06-26-2024 10:45-0500 Heart rate 76 /min Clifton JURADO [facility] 06-26-2024 10:45-0500 Respiratory rate 18 /min Clifton JURADO [facility] 06-26-2024 10:45-0500 Systolic blood pressure 156 mm[Hg] Clifton JURADO [facility] 06-25-2024 09:57-0500 Body height 185.4 cm Nino Hammonds MD Work Phone: [facility] 06-25-2024 09:57-0500 Body mass index (BMI) [Ratio] 32.32 kg/m2 Nino Hammonds MD Work Phone: [facility] 06-25-2024 09:57-0500 Body weight 111.13 kg Nino Hammonds MD Work Phone: [facility] 06-25-2024 09:57-0500 Diastolic blood pressure 78 mm[Hg] Nino Hammonds MD Work Phone: [facility] 06-25-2024 09:57-0500 Heart rate 74 /min Nino Hammonds MD Work Phone: [facility] 06-25-2024 09:57-0500 SaO2% (BldA) [Mass fraction] 96 % Nino Hammonds MD Work Phone: [facility] 06-25-2024 09:57-0500 Systolic blood pressure 136 mm[Hg] Nino Hammonds MD Work Phone: [facility] 01-29-2022 09:29-0400 Blood Pressure Location Clifton JURADO [facility] 01-29-2022 09:29-0400 Diastolic blood pressure 110 mm[Hg] Clifton JURADO [facility] 01-29-2022 09:29-0400 Heart rate 81 /min Clifton JURADO [facility] 01-29-2022 09:29-0400 Respiratory rate 16 /min Clifton JURADO [facility] 01-29-2022 09:29-0400 Systolic blood pressure 174 mm[Hg] Clifton JURADO [facility] Encounters Encounter Date Encounter Type Care Provider Facility Start: 06-28-2025 ambulatory Clifton JURADO Facili ty:[facility] Start: 10-26-2024 End: 10-26-2024 Bamboo flowsheet Nino Hammonds MD Work Phone: [facility] Start: 10-26-2024 End: 10-26-2024 Bamboo flowsheet Nino Hammonds MD Work Phone: [facility] Start: 10-26-2024 End: 10-26-2024 Assay of hemosiderin, quant Nino Hammonds MD Work Phone: [facility] Work Phone: Start: 10-26-2024 End: 10-26-2024 Patient encounter procedure Nino Hammonds MD Work Phone: [facility] Comment on above: Routine general medi heydi examination at health care facility (Primary Dx); ACP (advance care planning); Type 2 diabetes mellitus with diabetic chronic kidney disease (CMS/HCC); Chronic kidney disease, stage 3b (HCC) (CMS/HCC); Chronic pulmonary embolism (CMS/HCC) Start: 10-26-2024 End: 10-26-2024 ambulatory NINO HAMMONDS Not Available Start: 06-26-2024 End: 06-26-2024 ambulatory Clifton JURADO Facility:[facility] Start: 06-26-2024 End: 06-26-2024 Patient encounter procedure Clifton JURADO [facility] Start: 06-25-2024 End: 06-25-2024 Bamboo flowsheet Nino Hammonds MD Work Phone: [facility] Start: 06-25-2024 End: 06-25-2024 Bamboo flowstawnya Hammonds MD Work Phone: [facility] Start: 06-25-2024 End: 06-25-2024 Office outpatient visit 15 minutes Nino Hammonds MD Work Phone: [facility] Comment on above: Type 2 diabetes anjelica itus with diabetic neuropathy, with long- term current use of insulin ([facility]); Flu vaccine need Start: 06-25-2024 End: 06-25-2024 ambulatory NINO HAMMONDS Not Available Start: 02-24-2024 End: 02-24-2024 ambulatory NINO HAMMONDS Not Available Start: 10-30-2023 End: 10-30-2023 ambulatory NINO HAMMONDS Not Available Start: 11-14-2022 End: 02-12-2023 Rajan Hammonds [facility] Start: 06-25-[address] NINO HAMMONDS Facilit y:[facility] Start: 03-05-2022 End: 06-03-2022 Recurring NINO HAMMONDS [facility] Start: 01-29-2022 End: 01-29-2022 Patient encounter procedure Clifton JURADO [facility] Start: 12-12-2021 End: 12-13-[address] NINO HAMMONDS Facility:[facility] Procedures Date Procedure Procedure Detail Performing Clinician Start: 10-26-2024 Hemoglobin glycosyla jack a1c Nino Hammonds MD Work Phone: Start: 06-25-2024 Hemoglobin glycosyla jack a1c Nino Hammonds MD Work Phone: Start: 03-13-2023 Colonoscopy Nino vernon MD Work Phone: Start: 12-12-[address] NINO HAMMONDS Comment on above: Performed By: #### P SAD #### [facility] [address] [place] [address] Dr. David Santiago Start: 06-22-2014 Transrectal biopsy o f prostate using ultrasound guidance Clifton JURADO Comment on above: 03/16/2014 Start: 03-16-2014 Transrectal biopsy o f prostate using ultrasound guidance Clifton JURADO Start: 10-16-2012 Total nephrectomy Hany JURADO Comment on above: RIGHT Plan of Treatment Date Care Activity Detail Author Start: 03-13-2033 Screening for malign ant neoplasm of colon [facility] Start: 12-30-2025 Glaucoma screening Diabetes: R etinopathy Screening [facility] Start: 10-26-2025 Medicare Annual Well ness (AWV) Medicare Annual Wellness (AWV) [facility] Start: 02-18-2025 End: 02-18-2025 Patient encounter procedure 02/18/2025 10:00 AM EDT Office Visit [facility] [address] [facility] [address] [place] [phone] Nino Hammonds MD [address] [facility] [address] [place], [place] [id number] [facility] Start: 02-13-2025 Urine screening for protein Diabetes: Urine Protein Screening [facility] Start: 01-25-2025 Hemoglobin A1c measurement Diabetes: Hemoglobin A1C [facility] Start: 10-26-2024 End: 10-26-2024 Patient encounter procedure [facility] Comment on above: Arrived Start: 09-23-2024 Hemoglobin A1c measurement Diabetes: Hemoglobin A1C [facility] Start: 07-31-2024 Medicare Annual Well ness (AWV) Medicare Annual Wellness (AWV) [facility] Start: 06-25-2024 End: 06-25-2024 Patient encounter procedure 06/25/2024 10:00 AM EST Office Visit [facility] [address] [facility] [address] [place] [phone] Nino Hammonds MD [address] [facility] [address] [place] [address] Arrived [facility] Comment on above: Arrived Start: 05-26-2024 Hemoglobin A1c measurement Diabetes: Hemoglobin A1C [facility] Start: 03-08-2024 Influenza vaccination Influenza Vacc ine (#1) [facility] Start: 1973 Pneumococcal Vaccine : 65+ Years (1 of 2 - PCV) Pneumococcal Vaccine: 65+ Years (1 of 2 - PCV) [facility] Start: 1960 Pneumococcal Vaccine : 65+ Years (1 of 2 - PCV) Pneumococcal Vaccine: 65+ Years (1 of 2 - PCV) [facility] Start: 1954 Screening for malign ant neoplasm of colon [facility] Immunizations Immunization Date Immunization Notes Care Provider Fa cili 06-25-2024 influenza virus vaccine, unspecified formulation Clifton EDY [facility] 06-25-2024 Influenza, High-dose Seasonal, Quadrivalent, Preservative Free Nino Hammonds MD Work Phone: [facility] 05-04-2022 influenza, high dose seasonal, preservative-free Nino Hammonds MD Work Phone: [facility] 05-04-2022 influenza virus vaccine, unspecified formulation Nino Hammonds MD Work Phone: [facility] 05-31-2021 influenza, high dose seasonal, preservative-free Nino Hammonds MD Work Phone: [facility] 04-25-2021 SARS-CoV-2 (COVID-19 ) mRNA BNT-162b2 vax Clifton JURADO [facility] 04-24-2021 Pfizer Purple Cap SARS-CoV-2 Vaccination Nino Hammonds MD Work Phone: [facility] 09-30-2020 SARS-CoV-2 (COVID-19 ) mRNA BNT-162b2 vax Clifton JURADO [facility] 09-29-2020 Pfizer Purple Cap SARS-CoV-2 Vaccination Nino Hammonds MD Work Phone: [facility] 09-10-2020 SARS-CoV-2 (COVID-19 ) mRNA BNT-162b2 vax Clifton Zoondy [facility] Comment on above: Result Comment: 2023: [id number] 09-09-2020 Pfizer Purple Cap SARS-CoV-2 Vaccination Nino Hammonds MD Work Phone: [facility] 09-05-2020 SARS-CoV-2 (COVID-19 ) mRNA-1273 vaccine Clifton JURADO [facility] 07-14-2020 influenza virus vaccine, unspecified formulation Clifton JURADO [facility] 07-14-2020 influenza, injectabl e, quadrivalent, preservative free Nino Hammonds MD Work Phone: [facility] 07-14-2020 Influenza, Seasonal, Quadrivalent, Adjuvanted Nino Hammonds MD Work Phone: [facility] Payers Date Payer Category Payer Private Health Insurance [facility] MEDICARE SUPPLEMENT [id number] 2020 Medicare MEDICARE [id number] 1959 Medicare [id number] 1959 Self-pay 1959 Unknown [id number] 1954 Unknown [id number] 1954 Unknown [id number] 1954 Unknown [id number] 1954 Unknown [id number] 1954 Unknown [id number] 1954 Unknown [id number] 1954 Unknown [id number] 1954 Unknown [id number] Social History Date Type Detail Facility Start: 01-29-2022 End: 07-31-2023 Tobacco smoking status Ex-smoker (finding) [facility] Start: 02-24-2024 End: 10-26-2024 Sex Assigned At Male [facility] Start: 07-08-1960 End: 07-08-1999 History of tobacco use Current smoker [facility] Start: 07-08-1960 End: 07-08-1999 History of tobacco use Cigarette Smoker [facility] Start: 07-31-2023 End: 10-26-2024 Cigarettes smoked current (pack per day) - Reported 3 [facility] Start: 07-31-2023 Tobacco use and exposure Smokeless tobacco non-user [facility] Start: 02-24-2024 End: 10-26-2024 Alcoholic beverage intake Current drinker of alcohol (finding) [facility] Start: 1955 Sex assigned at Not on file N [facility] Tobacco smoking status Never [facility] Medical Equipment Procedure Code Equipment Code Equipment Original Text Equipment Identifier Dates [id number] Start: 05-22-2022 TEST 3 TIMES MIRANDA LY DIRECTED E11.65 [id number] Start: 06-28-2023 1 each by Other route in the morning and 1 each in the evening and 1 each before bedtime. Use as instructedTEST 3 TIMES DAILY DIRECTED E11.65. [id number] Start: 09-07-2024 End: 12-16-2024 Functional Status Date Assessment Result Facility 10-26-2024 Patient Health Quest ionnaire 2 item (PHQ-2) [Reported] [facility] 06-26-2024 Functional Status N/A [facility] 01-29-2022 Functional Status N/A [facility] Clinical Notes 01-29-2022 to 10-26-2024 Nino Hammonds MD - 10/26/2024 9:00 AM Roslyn Hammonds MD - 06/25/2024 10:00 AM EST Note Date & Type Note Facility 10-26-2024 History of Present illness Narrative Images from the original note were not included. Subjective : Chief Complaint: Tracy Carrillo is an 69 y.o. male here for an annual wellness visit. I have reviewed and reconciled the history and medication list with the patient today. Current Outpatient Medications Medication Sig Dispense Refill aspirin 81 MG EC tablet Take 81 mg by mouth Daily finasteride (Proscar) 5 MG tablet TAKE 1 TABLET BY MOUTH EVERY DAY IN THE MORNING 90 tablet 4 glucose blood (OneTouch Ultra) test strip 1 each by Other route in the morning and 1 each in the evening and 1 each before bedtime. Use as instructedTEST 3 TIMES DAILY DIRECTED E11.65. 300 strip 2 insulin glargine-lixisenatide (Soliqua) 100-33 UNT-MCG/ML pen INJECT 60 UNITS UNDER THE SKIN IN THE MORNING BEFORE MEALS 18 mL 11 insulin pen needle (BD Pen Needle Mery 2nd Gen) 32G x 4 mm misc USE TWICE A DAY DIRECTED 100 each 3 insulin regular (NovoLIN R FlexPen) 100 UNIT/ML pen INJECT 30 UNITS SUBCUTANEOUSLY ONCE IN THE EVENING BEFORE MEAL 30 mL 3 Lancet Devices (Autolet) lancing device 1 each by Other route in the morning and 1 each at noon and 1 each in the evening and 1 each before bedtime. Lancets (ShopTapTouch Delica Plus [id number]) misc USE TWICE DAILY FOR FINGER STICK E11.65 lisinopril 5 MG tablet TAKE 1 TABLET BY MOUTH EVERY DAY 100 tablet 4 lovastatin (Mevacor) 20 MG tablet TAKE 1 TABLET BY MOUTH AT BEDTIME 100 tablet 3 terazosin (Hytrin) 5 MG capsule TAKE 1 CAPSULE BY MOUTH EVERY DAY 100 capsule 3 No current facility-administered medications for this visit. Review of Systems List of current healthcare providers: Patient Care Team: Nino Hammonds MD as PCP - General (Internal Medicine) Nino Hammonds MD as PCP - ACO Reach Medicare Annual Visit Over the past 2 weeks, how often have you been bothered by any of the following problems? Little interest or pleasure in doing things: Not at all Feeling down, depressed, or hopeless: Not at all Patient Health Questionnaire-2 Score: 0 Ross Fall Risk History of Falling, Immediate or Within 3 Months: No Secondary Diagnosis: No Ambulatory Aid: Walks without aid/bedrest/nurse assist Health Risk Assessment Form Do you need help eating, bathing, using the toilet, dressing, or getting around your home?: No Can you prepare your own meals?: Yes Can you do your own housework without help?: Yes Can you shop for groceries or clothes without help?: Yes Do you exercise for about 20 minutes 3 or more days a week?: Yes How confident are you that you can control and manage most of your health problems?: Very confident Can you mange your money, credit cards and accounts, pay bills and taxes?: Yes Cognitive Screening Three Word Registration: Apple, Watch, Amira Clock Drawing: Normal Clock - 2 Three Word Recall: All 3 words correct - 3 Total Score (0-5 Points): 5 Pain Assessment Pain Score: 3 Advance Care Planning Do you have a living will?: No Do you have a medical power of employment attorney?: No Objective : BP 130/76 Pulse 66 Ht 6' 1 Wt 244 lb SpO2 98% BMI 32.19 kg/m No results found. Physical Exam Constitutional: General: He is not in acute distress. Appearance: He is normal weight. He is not ill-appearing. HENT: Head: Normocephalic. Cardiovascular: Rate and Rhythm: Normal rate and regular rhythm. Heart sounds: Normal heart sounds. No murmur heard. Pulmonary: Effort: Pulmonary effort is normal. Breath sounds: Normal breath sounds. Musculoskeletal: General: No swelling. Right lower le+ Pitting Edema present. Left lower le+ Pitting Edema present. Neurological: Mental Status: He is alert. Psychiatric: Mood and Affect: Mood normal. Thought Content: Thought content normal. Judgment: Judgment normal. No visits with results within 1 Month(s) from this visit. Latest known visit with results is: Office Visit on 06/25/2024 Component Date Value Ref Range Status Hemoglobin A1C 06/25/2024 7.1 Final Assessment/Plan : The following health maintenance schedule was reviewed with the patient and provided in printed form in the after visit summary: Health Maintenance Topic Date Due Pneumococcal Vaccine: 65+ Years (1 of 2 - PCV) Never done Medicare Annual Wellness (AWV) 07/31/2024 Diabetes: Hemoglobin A1C 09/23/2024 Diabetes: Urine Protein Screening 02/13/2025 Diabetes: Retinopathy Screening 12/30/2025 Colorectal Cancer Screening 03/13/2033 Influenza Vaccine Completed Advance Care Planning Patient agreed to discuss advance care planning at today's wellness visit. We discussed that an advance directive is a legal document that only goes into effect if the patient is incapacitated and unable to speak for himself or herself. This would help healthcare providers to ensure that the patient gets the care that he or she wishes to receive. The goal is to provide a patient with the best possible quality of life. Encouraged patient to obtain a living will and durable power of employment attorney for healthcare. We discussed telling boyce people about their advance directives such as close family members, and requested a copy to scan into the patient's EHR. An advance directive packet was offered to the patient. Assessment/Plan Diagnoses and all orders for this visit: Routine general medical examination at health care facility ACP (advance care planning) Type 2 diabetes mellitus with diabetic chronic kidney disease (CMS/HCC) - POCT Glycated hemoglobin, total Chronic kidney disease, stage 3b (HCC) (CMS/HCC) Chronic pulmonary embolism (CMS/HCC) Follow up in about 4 months (around 02/25/2025) for DM- A1C, Perform Labwork. No orders of the defined types were placed in this encounter. Electronically signed by Nino Hammonds MD on October 26, 2024 documented in this encounter [facility] 06-26-2024 Hospital Discharge instructions Patient Education 06/26/2024 11:46:33 Prostate Cancer Screening Prostate Cancer Screening Prostate cancer screening is testing that is done to check for the presence of prostate cancer in men. The prostate gland is a walnut-sized gland that is located below the bladder and in front of the rectum in males. The function of the prostate is to add fluid to semen during ejaculation. Prostate cancer is one of the most common types of cancer in men. Who should have prostate cancer screening? Screening recommendations vary based on age and other risk factors, as well as between the professional organizations who make the recommendations. In general, screening is recommended if: You are age 50 to 70 and have an average risk for prostate cancer. You should talk with your health care provider about your need for screening and how often screening should be done. Because most prostate cancers are slow growing and will not cause , screening in this age group is generally reserved for men who have a 10- to 15-year life expectancy. You are younger than age 50, and you have these risk factors: ?Having a father, brother, or uncle who has been diagnosed with prostate cancer. The risk is higher if your family member's cancer occurred at an early age or if you have multiple family members with prostate cancer at an early age. ?Being a male who is Black or is of Rohit or sub-Saharan descent. In general, screening is not recommended if: You are younger than age 40. You are between the ages of 40 and 49 and you have no risk factors. You are 70 years of age or older. At this age, the risks that screening can cause are greater than the benefits that it may provide. If you are at high risk for prostate cancer, your health care provider may recommend that you have screenings more often or that you start screening at a younger age. How is screening for prostate cancer done? The recommended prostate cancer screening test is a blood test called the prostate-specific antigen (PSA) test. PSA is a protein that is made in the prostate. As you age, your prostate naturally produces more PSA. Abnormally high PSA levels may be caused by: Prostate cancer. An enlarged prostate that is not caused by cancer (benign prostatic hyperplasia, or BPH). This condition is very common in older men. A prostate gland infection (prostatitis) or urinary tract infection. Certain medicines such as male hormones (like testosterone) or other medicines that raise testosterone levels. A rectal exam may be done as part of prostate cancer screening to help provide information about the size of your prostate gland. When a rectal exam is performed, it should be done after the PSA level is drawn to avoid any effect on the results. Depending on the PSA results, you may need more tests, such as: A physical exam to check the size of your prostate gland, if not done as part of screening. Blood and imaging tests. A procedure to remove tissue samples from your prostate gland for testing (biopsy). This is the only way to know for certain if you have prostate cancer. What are the benefits of prostate cancer screening? Screening can help to identify cancer at an early stage, before symptoms start and when the cancer can be treated more easily. There is a small chance that screening may lower your risk of dying from prostate cancer. The chance is small because prostate cancer is a slow-growing cancer, and most men with prostate cancer from a different cause. What are the risks of prostate cancer screening? The main risk of prostate cancer screening is diagnosing and treating prostate cancer that would never have caused any symptoms or problems. This is called overdiagnosisand overtreatment. PSA screening cannot tell you if your PSA is high due to cancer or a different cause. A prostate biopsy is the only procedure to diagnose prostate cancer. Even the results of a biopsy may not tell you if your cancer needs to be treated. Slow-growing prostate cancer may not need any treatment other than monitoring, so diagnosing and treating it may cause unnecessary stress or other side effects. Questions to ask your health care provider When should I start prostate cancer screening? What is my risk for prostate cancer? How often do I need screening? What type of screening tests do I need? How do I get my test results? What do my results mean? Do I need treatment? Where to find more information The [place] [employer]: www.cancer.org [place] [employer]: www.auanet.org Contact a health care provider if: You have difficulty urinating. You have pain when you urinate or ejaculate. You have blood in your urine or semen. You have pain in your back or in the area of your prostate. Summary Prostate cancer is a common type of cancer in men. The prostate gland is located below the bladder and in front of the rectum. This gland adds fluid to semen during ejaculation. Prostate cancer screening may identify cancer at an early stage, when the cancer can be treated more easily and is less likely to have spread to other areas of the body. The prostate-specific antigen (PSA) test is the recommended screening test for prostate cancer, but it has associated risks. Discuss the risks and benefits of prostate cancer screening with your health care provider. If you are age 70 or older, the risks that screening can cause are greater than the benefits that it may provide. This information is not intended to replace advice given to you by your health care provider. Make sure you discuss any questions you have with your health care provider. Document Revised: 12/18/2021 Document Reviewed: 12/18/2021 [email or web address] Patient Education 2023 [employer]. Follow Up Care 01/28/2023 11:23:23 With:EDY FOX, Clifton Reilly, URL Address: [address] [place] [address] [place] [address]- When: Unknown [facility] 06-26-2024 Note Patient Education Oncology Prostate Cancer Screening Prostate cancer screening is testing that is done to check for the presence of prostate cancer in men. The prostate gland is a walnut-sized gland that is located below the bladder and in front of the rectum in males. The function of the prostate is to add fluid to semen during ejaculation. Prostate cancer is one of the most common types of cancer in men. Who should have prostate cancer screening? Screening recommendations vary based on age and other risk factors, as well as between the professional organizations who make the recommendations. In general, screening is recommended if: ??? You are age 50 to 70 and have an average risk for prostate cancer. You should talk with your health care provider about your need for screening and how often screening should be done. Because most prostate cancers are slow growing and will not cause , screening in this age group is generally reserved for men who have a 10- to 15-year life expectancy. ??? You are younger than age 50, and you have these risk factors: ? Having a father, brother, or uncle who has been diagnosed with prostate cancer. The risk is higher if your family member's cancer occurred at an early age or if you have multiple family members with prostate cancer at an early age. ? Being a male who is Black or is of Rohit or sub-Saharan descent. In general, screening is not recommended if: ??? You are younger than age 40. ??? You are between the ages of 40 and 49 and you have no risk factors. ??? You are 70 years of age or older. At this age, the risks that screening can cause are greater than the benefits that it may provide. If you are at high risk for prostate cancer, your health care provider may recommend that you have screenings more often or that you start screening at a younger age. How is screening for prostate cancer done? The recommended prostate cancer screening test is a blood test called the prostate-specific antigen (PSA) test. PSA is a protein that is made in the prostate. As you age, your prostate naturally produces more PSA. Abnormally high PSA levels may be caused by: ??? Prostate cancer. ??? An enlarged prostate that is not caused by cancer (benign prostatic hyperplasia, or BPH). This condition is very common in older men. ??? A prostate gland infection (prostatitis) or urinary tract infection. ??? Certain medicines such as male hormones (like testosterone) or other medicines that raise testosterone levels. A rectal exam may be done as part of prostate cancer screening to help provide information about the size of your prostate gland. When a rectal exam is performed, it should be done after the PSA level is drawn to avoid any effect on the results. Depending on the PSA results, you may need more tests, such as: ??? A physical exam to check the size of your prostate gland, if not done as part of screening. ??? Blood and imaging tests. ??? A procedure to remove tissue samples from your prostate gland for testing (biopsy). This is the only way to know for certain if you have prostate cancer. What are the benefits of prostate cancer screening? Screening can help to identify cancer at an early stage, before symptoms start and when the cancer can be treated more easily. ??? There is a small chance that screening may lower your risk of dying from prostate cancer. The chance is small because prostate cancer is a slow-growing cancer, and most men with prostate cancer from a different cause. What are the risks of prostate cancer screening? The main risk of prostate cancer screening is diagnosing and treating prostate cancer that would never have caused any symptoms or problems. This is called overdiagnosisand overtreatment. PSA screening cannot tell you if your PSA is high due to cancer or a different cause. A prostate biopsy is the only procedure to diagnose prostate cancer. Even the results of a biopsy may not tell you if your cancer needs to be treated. Slow-growing prostate cancer may not need any treatment other than monitoring, so diagnosing and treating it may cause unnecessary stress or other side effects. Questions to ask your health care provider ??? When should I start prostate cancer screening? What is my risk for prostate cancer? How often do I need screening? What type of screening tests do I need? How do I get my test results? What do my results mean? Do I need treatment? Where to find more information ??? The [place] [employer]: www.cancer.org ??? [place] [employer]: www.auanet.org Contact a health care provider if: ??? You have difficulty urinating. ??? You have pain when you urinate or ejaculate. ??? You have blood in your urine or semen. ??? You have pain in your back or in the area of your prostate. Summary ??? Prostate cancer is a common type of cancer in men. The prostate gland (more content not included)... [facility] 06-25-2024 History of Present illness Narrative Images from the original note were not included. Subjective Patient ID: Tracy Carrillo is a 69 y.o. male who presents for Diabetes. Diabetes Mellitus Patient presents for follow up of diabetes. Current symptoms include: paresthesia of the feet. Patient denies foot ulcerations, hypoglycemia , polydipsia, polyuria, visual disturbances, and vomiting. Evaluation to date has included: fasting blood sugar, fasting lipid panel, hemoglobin A1C, and microalbuminuria. Home sugars: BGs range between 150 and 200 Diabetes Pertinent negatives for diabetes include no chest pain and no fatigue. Current Outpatient Medications on File Prior to Visit Medication Sig Dispense Refill aspirin 81 MG EC tablet Take 81 mg by mouth Daily finasteride (Proscar) 5 MG tablet TAKE 1 TABLET BY MOUTH EVERY DAY IN THE MORNING 90 tablet 4 insulin glargine-lixisenatide (Soliqua) 100-33 UNT-MCG/ML pen INJECT 60 UNITS UNDER THE SKIN IN THE MORNING BEFORE MEALS 18 mL 11 insulin pen needle (BD Pen Needle Mery 2nd Gen) 32G x 4 [facility] USE TWICE A DAY DIRECTED 100 each 3 insulin regular (NovoLIN R FlexPen) 100 UNIT/ML pen INJECT 30 UNITS SUBCUTANEOUSLY ONCE IN THE EVENING BEFORE MEAL 30 mL 3 Lancet Devices (Autolet) lancing device 1 each by Other route in the morning and 1 each at noon and 1 each in the evening and 1 each before bedtime. Lancets (OneTouch Delica Plus [id number]) [facility] [place] USE TWICE DAILY FOR FINGER STICK E11.65 lisinopril 5 MG tablet TAKE 1 TABLET BY MOUTH EVERY DAY 100 tablet 4 lovastatin (Mevacor) 20 MG tablet TAKE 1 TABLET BY MOUTH AT BEDTIME 100 tablet 3 OneTouch Ultra test strip TEST 3 TIMES DAILY DIRECTED E11.65 300 strip 5 terazosin (Hytrin) 5 MG capsule TAKE 1 CAPSULE BY MOUTH EVERY DAY 100 capsule 3 No current facility-administered medications on file prior to visit. I have reviewed and reconciled the history and medication list with the patient today. No Known Allergies Social History Tobacco Use Smoking status: Former Current packs/day: 0.00 Average packs/day: 3.0 packs/day for 40.0 years (120.0 ttl pk-yrs) Types: Cigarettes Start date: 07/08/1959 Quit date: 07/08/1999 Years since quittin.9 Smokeless tobacco: Never Substance Use Topics Alcohol use: Yes Drug use: Not Currently Types: Marijuana Family History Problem Relation Name Age of Onset Diabetes Mother Stroke Mother Arthritis Mother Arthritis Father Cancer Father Past Medical History: Diagnosis Date Colon polyp 01/2019 tubular adenoma Controlled type 2 diabetes mellitus with hyperglycemia (CMS/HCC) Diabetes mellitus (CMS/HCC) History of DVT (deep vein thrombosis) History of kidney cancer History of pulmonary embolus (PE) Hx of echocardiogram 01/16/2019 ECHO EF 65% Past Surgical History: Procedure Laterality Date COLONOSCOPY 03/13/2023 COLONOSCOPY W/ POLYPECTOMY 01/14/2019 HERNIA REPAIR Right inguinal NEPHRECTOMY Visit Vitals BP 136/78 Pulse 74 Ht 6' 1 Wt 245 lb SpO2 96% BMI 32.32 kg/m Smoking Status Former BSA 2.39 m Review of Systems Constitutional: Negative for fatigue. Cardiovascular: Negative for chest pain. Objective Physical Exam Constitutional: General: He is not in acute distress. Appearance: He is normal weight. He is not ill-appearing. HENT: Head: Normocephalic. Cardiovascular: Rate and Rhythm: Normal rate and regular rhythm. Heart sounds: Normal heart sounds. No murmur heard. Pulmonary: Effort: Pulmonary effort is normal. Breath sounds: Normal breath sounds. Musculoskeletal: General: No swelling. Right lower leg: No edema. Left lower leg: No edema. Neurological: Mental Status: He is alert. Psychiatric: Mood and Affect: Mood normal. Thought Content: Thought content normal. Judgment: Judgment normal. Office Visit on 06/25/2024 Component Date Value Ref Range Status Hemoglobin A1C 06/25/2024 7.1 Final Assessment/Plan Diagnoses and all orders for this visit: Type 2 diabetes mellitus with diabetic neuropathy, with long-term current use of insulin ([facility]) - POCT Glycated hemoglobin, total - FSBS log shows good control, most recent A1C is at or near goal. Continue current treatment plan as previously outlined without changes. Flu vaccine need - Influenza, high-dose seasonal, quadrivalent, PF (UXL502) (Fluzone High Dose [place] 0.7mL dose) Follow up in about 4 months (around 10/24/2024) for DM- A1C. documented in this encounter [facility] 01-29-2022 Hospital Discharge instructions Patient Education 01/29/2022 10:04:56 Cancer Screening for Men Cancer Screening for Men A cancer screening is a test or exam that checks for cancer. Your health care provider will recommend specific cancer screenings based on your age, personal history, and family history of cancer. Work with your health care provider to create a cancer screening schedule that protects your health. Why is cancer screening done? Cancer screening is done to look for cancer in the very early stages, before it spreads and becomes harder to treat and before you would start to notice symptoms. Finding cancer early improves the chances of successful treatment. It may save your life. Who should be screened for cancer? All men should be screened for colorectal cancer and skin cancer. Your health care provider may recommend screenings for other types of cancer if: You had cancer before. You have a family member with cancer. You have abnormal genes that could increase the risk of cancer. You have risk factors for certain cancers, such as smoking. When you should be screened for cancer depends on: Your age. Your medical history and your family's medical history. Certain lifestyle factors, such as smoking. Environmental exposure, such as to asbestos. What are some common cancer screenings? Lung cancer Lung cancer screening is done with a CT scan that looks for abnormal cells in the lungs. Discuss lung cancer screening with your health care provider if you are 55 74 years old and if any of the following apply to you: You currently smoke. You used to smoke heavily. You have a smoking history of 1 pack a day for 30 years or 2 packs a day for 15 years. You have quit smoking within the past 15 years. If you smoke heavily or if you used to smoke, you may need to be screened every year. Prostate cancer Prostate cancer screening is done with blood tests and an exam in which a health care provider uses a gloved finger to check prostate size (digital rectal exam). You may need to be screened for prostate cancer if: You have risk factors of prostate cancer, such as being or having a close family member with prostate cancer. You have inherited gene changes or a genetic condition, including BRCA1 or BRCA2 gene mutations or Lowery syndrome. You have symptoms of prostate cancer, such as problems urinating or erectile dysfunction. Prostate cancer screening for men with average risk may start at age 50. Men with risk factors may need to be screened earlier at age 40 45. Once you have been screened for prostate cancer, future screening may be recommended based on the results of your blood tests. Colorectal cancer All adults should have screening for colorectal cancer starting at age 50 and continuing until age 75. Your health care provider may recommend screening at age 45. You will have tests every 1 10 years, depending on your results and the type of screening test. If you have a family history of colon or rectal cancer or other risk factors, you may need to start having screenings earlier. Talk with your health care provider about which screening test is right for you and how often you should be screened. Colorectal cancer screening looks for cancer or for growths called polyps that often form before cancer starts. Tests to look for cancer or polyps include: Colonoscopy or flexible sigmoidoscopy. For these procedures, a flexible tube with a small camera is inserted into the rectum. CT colonography. This test uses X-rays and a contrast dye to check the colon for polyps. If a polyp is found, you may need to have a colonoscopy so the polyp can be located and removed. Tests to look for cancer in the stool (feces) include: Guaiac-based fecal occult blood test (FOBT). This test detects blood in stool. It can be done at home with a kit. Fecal immunochemical test (FIT). This test detects blood in stool. For this test, you will need to collect stool samples at home. Stool DNA test. This test looks for blood in stool and any changes in DNA that can lead to colon cancer. For this test, you will need to collect a stool sample at home and send it to a lab. Skin cancer Skin cancer screening is done by checking the skin for unusual moles or spots and any changes in existing moles. Your health care provider should check your skin for signs of skin cancer at every physical exam. You should check your skin every month and tell your health care provider right away if anything looks unusual. Men with a mifyej-vdaz-rdtcnk risk for skin cancer may want to see a pst specialist (seal mixer) for an annual body check. Where to find more information National Cancer [place]: https://www.cancer.gov/about-can cer/screening Centers for Disease Control and Prevention: https://www.cdc.gov/cancer/dcpc/ prevention/screening.htm [place] [employer]: https://www.cancer.org/latest-ne ws/4-sjtdul-mysobkcvl-tests-for- men.html Contact a health care provider if: You have concerns about any signs or symptoms of cancer, such as: ?Moles that have an unusual shape or color. ?Changes in existing moles. ?A sore on your skin that does not heal. ?Blood in your urine or stool. ?Fatigue that does not go away. ?Frequent pain or cramping in your abdomen. ?Coughing or trouble breathing that does not go away. ?Coughing up blood. ?Losing weight without trying. ?Changes in urination habits. ?Painful urination or ejaculation. Summary Be aware of and watch for signs and symptoms of cancer, especially symptoms of lung cancer, prostate cancer, colorectal cancer, and skin cancer. Early detection of cancer with cancer screening may save your life. Talk with your health care provider about your specific cancer risks. Work together with your health care provider to create a cancer screening plan that is right for you. This information is not intended to replace advice given to you by your health care provider. Make sure you discuss any questions you have with your health care provider. Document Released: 03/21/2017 Document Revised: 03/13/2019 Document Reviewed: 03/21/2017 [email or web address] Patient Education 2020 [employer]. Follow Up Care 01/23/2021 11:07:26 With:EDY FOX, Clifton Reilly, URL Address: [facility] [address] , [place] [address]- [phone] When: Unknown [facility] [employer] Evaluation + Plan note Future Appointments Appointment Date:01/28/2023 10:15:00 AM Scheduled Provider:Clifton JURADO MD Location:[facility] Appointment Type:URO Office Visit [facility] [employer] Evaluation + Plan note Future Appointments Appointment Date:01/27/2024 09:45:00 AM Scheduled Provider:Clifton JURADO MD Location:[facility] Appointment Type:URO Office Visit [facility] Evaluation + Plan note Future Appointments Appointment Date:06/28/2025 09:15:00 AM Scheduled Provider:Clifton JURADO MD Location:[facility] Appointment Type:URO Office Visit Diagnostic Tests PendingPSA Total 05/08/25 [email or web address] Diagnosis Type 2 diabetes mellitus with diabetic neuropathy, with long-term current use of insulin ([facility]) Flu vaccine need documented in this encounter [facility]* Diagnosis Routine general medical examination at health care facility- Primary Routine general medical examination at a health care facility ACP (advance care planning) Other specified counseling Type 2 diabetes mellitus with diabetic chronic kidney disease ([facility]/HCC) Chronic kidney disease, stage 3b (HCC) ([facility]) Chronic pulmonary embolism ([facility]) Chronic pulmonary embolism documented in this [facility] Narrative No data available for this section [facility] [employer] Hospital Discharge instructions No data available for this section [facility] No data available for this section [facility] [employer] Summary Purpose Family History No Family History Records FoundNo Family History Records Found No data available for this section No Family History Records FoundNo Family History Records Found Advance Directives No Advanced Directives Records FoundNo Advanced Directives Records FoundNo Advanced Directives Records FoundNo Advanced Directives Records Found Additional Source Comments (unrecognized sect ion and content) No Status Records FoundNo Status Records FoundNo Status Records FoundNo Status Records Found INFORMATION SOURCE (unrecogn ized section and content) DATE CREATED AUTHOR 09/01/2021 [facility] DATE CREATED AUTHOR AUTHOR'S ORGANIZ ATION 06/28/2022 [facility] DATE CREATED AUTHOR AUTHOR'S ORGANIZ ATION 10/26/2024 [facility] EPIC DATE CREATED AUTHOR AUTHOR'S ORGANIZ ATION 11/14/2024 Biju Palacios [facility] Care Team (unrecognized sect ion and content) 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 Start Date End Date Nino Hammonds MD [address] [place] [address] PCP - ACO Reach 11/29/22 Nino Hammonds MD [address] [place] [address] PCP - General Internal Medicine 12/26/22 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 Start Date End Date Nino Hammonds MD [address] [place] [address] PCP - ACO Reach 11/29/22 Nino Hammonds MD [address] [place] [address] PCP - General Internal Medicine 12/26/22 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 [place] [address] PCP - General Internal Medicine 12/26/22 Reason for Visit (unrecogniz ed section and content) Reason Comments Diabetes Reason Comments Medicare Annual Wellness Visit Subsequen t FOR RECORDS PERTAINING TO PATIENTS WHO ARE OR HAVE BEEN ENROLLED IN A CHEMICAL DEPENDENCY/SUBSTANCEABUSE PROGRAM, SOME INFORMATION MAY BE OMITTED. This clinical summary was aggregated from multiple sources. Caution should be exercised in using it in the provision of clinical care. This summary normalizes information from multiple sources, and as a consequence, information in this document may materially change the coding, format and clinical context of patient data. In addition, data may be omitted in some cases. CLINICAL DECISIONS SHOULD BE BASED ON THE PRIMARY CLINICAL RECORDS. [employer] provides no warranty or guarantee of the accuracy or completeness of information in this document.
--- NOTE | 2025-01-01 08:58 | XR_ITS ---
The [address] [address] Patient Name: TRACY IRENE MRN: [id number] date: 1955 Sex: M Assigned Patient Location: ER Current Patient Location: ER Accession/Order Number: [id number] Exam Date: 01/01/2025 09:18 Report Date: 01/01/2025 09:19 At the request of: OTILIA FAIRCHILD MD Procedure: XR chest 1V PORTABLE AP ERECT CHEST 0848 hours CLINICAL HISTORY: Shortness of breath and cough COMPARISON: 12/29/2022 There is slight elevation of left hemidiaphragm with underlying air-filled viscus. The heart is within normal limits. There is no vascular congestion. The lungs, as visualized, are clear. There is no effusion or pneumothorax. The osseous structures are intact. Mild endplate spurring is seen. XR/XR chest 1V IMPRESSION: NO ACUTE FINDINGS Impression dictated by: Margoth Delgadillo M.D. 01/01/2025 9:19 AM Dictation Location: [place] [address] Electronically authenticated by: [id number] Y Date: 01/01/2025 09:19
--- NOTE | 2025-01-01 08:58 | ECG_ITS ---
The [facility] Test Date: 2025-01-01 Pat Name: TRACY IRENE Department: Room: - Gender: Male Sole Rounder: : 1955 Requested By: WILLIAM CHOWDHURY Order Number: [id number] Nancie MD: JEAN-PIERRE DORANTES M.D. Measurements Intervals [place] Rate: 100 P: -62 IL: 138 QRS: -78 QRSD: 130 T: 80 QT: 364 QTc: 421 Interpretive Statements Sinus rhythm 1470 with occasional supraventricular premature complexes 2450 Right bundle branch block 2630 Left anterior fascicular block 3414 Cannot rule out septal myocardial infarction, age undetermined 5234 Left ventricular hypertrophy with repolarization abnormality 9150 abnormal ECG No previous ECG available for comparison Electronically Signed On 01-02-2025 11:58:51 EDT by JEAN-PIERRE DORANTES M.D.
--- NOTE | 2025-01-01 09:01 | ED_ITS ---
HPI HPI - General Adult General Chief complaint: Back Pain/Injury Stated complaint: SOB Time Seen by Provider: 01/01/25 08:46 Source: patient and family Mode of arrival: walk-in Limitations: no limitations History of Present Illness HPI narrative: 69-year-old male presents to the emergency department for cough and back pain. He has had a dry cough for about 2 weeks. Last night seem to get worse and now he has got some pain in his right posterior lower rib area. There was no specific injury but he has been doing a great deal of coughing. His cough has been nonproductive and has had no hemoptysis either. No known fever. Related Data Home Medications ?Medication ?Instructions ?Recorded ?Confirmed finasteride 5 mg tablet 5 mg PO DAILY 01/01/2501/01 insulin glargine 100 60 unit subcut QAM 01/01/25 01/01/25 unit-lixisenatide 33 mcg/mL subcutaneous pen (Soliqua 100/33) insulin regular human 100 unit/mL 30 unit subcut .BEFO RE DINNER 01/01/25 01/01/25 (3 mL) subcutaneous pen (Novolin R FlexPen) lisinopril 5 mg tablet 5 mg PO DAILY 01/01/2501/01 lovastatin 20 mg tablet 20 mg PO .QHS 01/01/2501/01 terazosin 5 mg capsule 5 mg PO DAILY 01/01/2501/01 Previous Rx's ?Medication ?Instructions ?Recorded azithromycin 250 mg tablet See Rx Instructions PO .COM PLEX #6 01/01/25 (Zithromax Z-Luther) tabs benzonatate 100 mg capsule 100 mg PO TID PRN cough #20 caps 01/01/25 Allergies Allergy/AdvReac Type Severity Reaction Status Date / Time No Known Drug Allergies Allergy Verified 01/01/25 08:52 Opioid HPI Opioid Management Most Recent Opioid Data: Last Pain Scale 3 Today, 09:52 Last MAR Pain Assessment Today, 09:52 Review of Systems ROS Narrative A ten point review of systems is negative except as noted above. PFSH PFSH Social History Little interest or pleasure in doing things: not at all Feeling down, depressed, or hopeless: not at all Exam Narrative Exam Narrative: Nurses note and vital signs reviewed and patient is not hypoxic. General: The patient appears well and in no apparent distress. Patient is resting comfortably on cart. Skin: Warm, dry, no pallor noted. There is no rash noted. Head: Normocephalic, atraumatic Eye: Normal conjunctiva, no drainage Ears, Nose, Mouth, and Throat: oral mucosa is moist. Nares patent. Cardiovascular: Regular Rate and Rhythm, not tachycardic Respiratory: Patient is in no distress, no accessory muscle use, breath sounds are equal and diminished symmetrically Back: non-tender, no bruise or rash or palpable tenderness. GI: Soft and nontender Musculoskeletal: The patient has no evidence of calf tenderness, no pitting edema, symmetrical pulses noted bilaterally Neurological: A&O, normal speech Psychiatric: Cooperative Constitutional Vital Signs, click to edit/add: Last Vital Signs Temp 98.6 F 01/01/25 08:44 Pulse 86 01/01/25 10:31 Resp 18 01/01/25 10:31 BP 133/77 01/01/25 10:31 Pulse Ox 93 L 01/01/25 10:31 O2 Del Method Room Air 01/01/25 08:44 Course Vital Signs Vital signs: Vital Signs Temperature 98.6 F 01/01/25 08:44 Pulse Rate 99 H 01/01/25 08:44 Respiratory Rate 22 H 01/01/25 08:44 Blood Pressure 161/80 H 01/01/25 08:44 Pulse Oximetry 96 01/01/25 08:44 Oxygen Delivery Method Room Air 01/01/25 08:44 Temperature 98.6 F 01/01/25 08:44 Pulse Rate 86 01/01/25 10:31 Respiratory Rate 18 01/01/25 10:31 Blood Pressure 133/77 01/01/25 10:31 Pulse Oximetry 93 L 01/01/25 10:31 Oxygen Delivery Method Room Air 01/01/25 08:44 Medical Decision Making MDM Narrative Medical decision making narrative: His workup here is negative. There is no evidence of pulmonary embolism. VQ scan was performed because he was unable to have a CT because he only has 1 kidney. Investigation for pulmonary embolism was needed because his D-dimer is over 7. There is no evidence of pneumothorax or pneumonia or pleural effusion. He is feeling improved after being given IV Toradol and is able to be discharged home. Treatment diagnosis and follow-up were discussed with the patient. Differential Diagnosis Differential Diagnosis: Pulmonary embolism, pneumothorax, pleural effusion, pneumonia,muscle strain Lab Data Lab results reviewed: Yes I reviewed the patient's lab results Labs: Lab Results 01/01/25 01/01/25 Range/Units 08:55 09:00 WBC 14.4 H (4.0-11.0) 10^3/uL RBC 4.41 L (4.70-6.10) 10^6/uL Hgb 13.1 L (14.0-18.0) g/dL Hct 40.0 L (42.0-54.0) % MCV 90.7 (80.0-94.0) fL MCH 29.7 (25.9-34.0) pg MCHC 32.8 (29.9-35.2) g/dL RDW 13.0 (11.0-15.0) % Plt Count 226 (150-450) 10^3/uL MPV 9.9 (9.5-13.5) fL Neut % (Auto) 78.1 H (43.0-75.0) % Lymph % (Auto) 11.4 L (20.5-60.0) % Otero % (Auto) 9.9 (1.7-12.0) % Eos % (Auto) 0.1 L (0.9-7.0) % Baso % (Auto) 0.2 (0.2-2.0) % Neut # (Auto) 11.2 H (1.4-6.5) 10^3/uL Lymph # (Auto) 1.7 (1.2-3.8) 10^3/uL Otero # (Auto) 1.4 H (0.3-0.8) 10^3/uL Eos # (Auto) 0.0 (0.0-0.7) 10^3/uL Baso # (Auto) 0.0 (0.0-0.1) 10^3/uL Abs Immat Gran (auto) 0.05 H (0.00-0.03) 10^3/uL Imm/Tot Granulo (auto) 0.3 (0.0-0.5) % D-Dimer 7.42 H* (<=0.59) mg/L FEU Sodium 138 (136-145) mmol/L Potassium 4.8 (3.5-5.1) mmol/L Chloride 103 (98-107) mmol/L Carbon Dioxide 25.4 (21.0-32.0) mmol/L Anion Gap 14.4 BUN 27.0 H (7.0-18.0) mg/dL Creatinine 2.05 H (0.70-1.30) mg/dL Est GFR ( Amer) 39 L (>=60 mL/min/1.73m^2) Est GFR (Non-Af Amer) 32 L (>=60 mL/min/1.73m^2) BUN/Creatinine Ratio 13.2 Glucose 154 H (74-106) mg/dL Calcium 8.9 (8.5-10.1) mg/dL Troponin I High Sens 16.7 (4.0-76.1) pg/mL SARS-CoV-2 Ag (CV2AG) Negative (NEGATIVE) Imaging Data Chest x-ray: Radiologist's impression: ITS Impressions Chest X-Ray 01/01/25 08:58 IMPRESSION: NO ACUTE FINDINGS Impression dictated by: Margoth Delgadillo M.D. 01/01/2025 9:19 AM Dictation Location: [place] [address] Electronically authenticated by: [id number] Y Date: 01/01/2025 09:19 Pulmonary Perfusion Imaging 01/01/25 09:49 IMPRESSION: Normal or very low probability for pulmonary embolism. Impression dictated by: Lavon Greenberg M.D. 01/01/2025 2:20 PM Dictation [facility] [employer] Electronically authenticated by: [id number] Y Date: 01/01/2025 14:20 ECG Data Attestation: I personally reviewed and interpreted this ECG as follows: (EKG on my interpretation shows no acute findings) Discharge Plan Discharge Chief Complaint: Back Pain/Injury Clinical Impression: Back pain, Upper respiratory infection Patient Disposition: Home, Self-Care Time of Disposition Decision: 15:17 Condition: Good Mode of Transportation: Private Vehicle Prescriptions / Home Meds: New azithromycin [Zithromax Z-Luther] 250 mg tablet See Rx Instructions .ROUTE .COMPLEX Qty: 6 0RF Rx Instructions: For 250 mg dose pack: take 500 mg today (day 1), then 250 mg for 4 days (days 2-5) benzonatate 100 mg capsule 100 mg PO TID PRN (Reason: cough) Qty: 20 0RF No Action finasteride 5 mg tablet 5 mg PO DAILY Soliqua 100/33 100 unit-33 mcg/mL insulin pen 60 unit SUBCUT QAM Novolin R FlexPen 100 unit/mL (3 mL) insulin pen 30 unit SUBCUT .BEFORE DINNER lisinopril 5 mg tablet 5 mg PO DAILY lovastatin 20 mg tablet 20 mg PO .QHS terazosin 5 mg capsule 5 mg PO DAILY Print Language: Ghanaian Instructions: Upper Respiratory Infection (ED), Back Pain (ED) Referrals: WILLIAM CHOWDHURY [Primary Care Provider, Internal Medicine] - 1 week
--- NOTE | 2025-01-01 09:05 | PC.NURSE ---
cough x2 weeks - increased SOB and medial back pain last night. nothing for pain today
[2025-01-01 09:10] LABS: Basophils Percent Auto 0.2 % (0.2-2.0); Eosinophils Percent Auto 0.1 % (0.9-7.0); Hemoglobin 13.1 g/dL (14.0-18.0); Immature Granulocytes Abs Auto 0.05 10^3/uL (0.00-0.03); Immature Granulocytes Pct Auto 0.3 % (0.0-0.5); Lymphocytes Absolute Auto 1.7 10^3/uL (1.2-3.8); Lymphocytes Percent Auto 11.4 % (20.5-60.0); Mean Corpuscular HGB Conc 32.8 g/dL (29.9-35.2); Mean Corpuscular Hemoglobin 29.7 pg (25.9-34.0); Mean Corpuscular Volume 90.7 fL (80.0-94.0); Mean Platelet Volume 9.9 fL (9.5-13.5); Monocytes Absolute Auto 1.4 10^3/uL (0.3-0.8); Monocytes Percent Auto 9.9 % (1.7-12.0); Neutrophils Absolute Auto 11.2 10^3/uL (1.4-6.5); Neutrophils Percent Auto 78.1 % (43.0-75.0); Platelet Count 226 10^3/uL (150-450); Red Blood Count 4.41 10^6/uL (4.70-6.10); White Blood Count 14.4 10^3/uL (4.0-11.0)
[2025-01-01 09:28] LABS: Internal Control Within Normal Limits; SARS-CoV-2 Ag NEGATIVE (NEGATIVE)
[2025-01-01 09:32] LABS: Anion Gap 14.4; BUN Creatinine Ratio 13.2; Calcium 8.9 mg/dL (8.5-10.1); Carbon Dioxide 25.4 mmol/L (21.0-32.0); Chloride 103 mmol/L (98-107); D Dimer 7.42 mg/L FEU (<=0.59); Estimated GFR (African America 39 (>=60 mL/min/1.73m^2); Estimated GFR (Non-African Ame 32 (>=60 mL/min/1.73m^2); Glucose 154 mg/dL (74-106); Potassium 4.8 mmol/L (3.5-5.1); Sodium 138 mmol/L (136-145); Troponin I High Sensitivity 16.7 pg/mL (4.0-76.1)
--- NOTE | 2025-01-01 09:49 | NM_ITS ---
[address] [address] Patient Name: TRACY IRENE MRN: [id number] date: 1955 Sex: M Assigned Patient Location: ER Current Patient Location: Accession/Order Number: [id number] Exam Date: 01/01/2025 14:16 Report Date: 01/01/2025 14:20 At the request of: OTILIA FAIRCHILD MD Procedure: NM pul vent and perfuse NM pul vent and perfuse 01/01/2025 1:37 PM SIGNS AND SYMPTOMS: ^Elevated D-dimer PROTOCOL: Scintigraphic images of the chest were obtained after intravenous radiotracer administration. Scintigraphic images of the chest were also performed after inhalation of radiotracer material. COMPARISON: 01/01/2025 RADIOPHARMACEUTICAL: 26.3 mCi of technetium 99 DTPA aerosolized and 5 mCi of technetium 99 M MAA intravenously FINDINGS: Ventilation: No filling defects. Perfusion: No perfusion defect. NM/NM pul vent and perfuse IMPRESSION: Normal or very low probability for pulmonary embolism. Impression dictated by: Lavon Greenberg M.D. 01/01/2025 2:20 PM Dictation Location: [place] [address] Electronically authenticated by: [id number] Y Date: 01/01/2025 14:20
[2025-01-01] MEDS: KETOROLAC TROMETHAMINE 30 MG/ML VIAL IVP (09:52)
== END 2025-01-01 15:39 | disposition home or self-care (01) ==
PROVIDERS: Emergency Provider Emergency Medicine; PCP Internal Medicine
DX: M54.9 Dorsalgia, unspecified (principal); J06.9 Acute upper respiratory infection, unspecified; R05.9 Cough, unspecified; R07.89 Other chest pain
CPT/HCPCS: 36415; 71045; 78582; 80048; 84484; 85025; 85378; 87811; 93005; 96374; 99285; A9540; A9567; J1885

== ENCOUNTER 2025-02-09 14:21 | Outpatient (OUT) | payer MEDICARE, SELFPAY ==
--- OUTSIDE RECORDS SUMMARY | 2025-02-08 15:45 | XMS_ITS | Encounter Summary ---
Author Organization [facility] Address [address] [place] [address] Care Team Providers Care Cerner Analyst Name Role Phone Nino Hammonds MD Unavailable [phone] Nino Hammonds MD Primary Care Provider [phone] Encounter Details Date Type Department Care Team (Late st Contact Info) Description 02/08/2025 3:45 PM EDT Office Visit [facility] [place] [facility] [address] [facility] 110 [place] [phone] Nino Hammonds MD 112 [facility] 110 [place] [address] Acute bilateral low back pain without sciatica (Primary Dx); Type 2 diabetes mellitus with chronic kidney disease, with long-term current use of insulin, unspecified CKD stage (HCC); Localized edema; History of primary malignant neoplasm of kidney Social History Tobacco Use Types Packs/Day Years Used Date Smoking Tobacco: Former Cigarettes 3 40 0 07/08/1959 - 07/08/1999 Smokeless Tobacco: Never Tobacco Cessation:Counseling Given: Yes Alcohol Use Standard Drinks/Week Comments Yes 0 (1 standard drink = 0.6 oz pur e alcohol) PHQ-2 Answer Date Recorded Patient Health Questionnaire-2 Score 0 02/08/2025 Sex and Gender Information Value Date Recorded Sex Assigned at Not on file Legal Sex Male 9:31 PM EDT Gender Identity Not on file Sexual Orientation Not on file documented as of this encounter Last Filed Vital Signs Vital Sign Reading Time Taken Comments Blood Pressure 130/58 02/08/2025 4:03 PM EDT Pulse 103 02/08/2025 4:03 PM EDT Temperature - - Respiratory Rate 17 02/08/2025 4:03 PM EDT Oxygen Saturation 87% 02/08/2025 4:03 PM EDT Inhaled Oxygen Concentration - - Weight 112 kg (248 lb) 02/08/2025 4:03 PM EDT Height 185.4 cm (6' 1 ) 02/08/2025 4:03 PM EDT Body Mass Index 32.72 02/08/2025 4:03 PM EDT documented in this encounter Functional Status * Over the past 2 weeks, how often have you been bothered by any of the following problems? Question Answer Date of Assessment Author Little interest or pleasure in doing things Not at all 02/08/2025 3:49 PM EDT ANU COBB Feeling down, depressed, or hopeless Not at all 10/2024 3:49 PM EDT ANU COBB Patient Health Questionnaire-2 Score 0 10/2024 3:49 PM EDT ANU COBB documented as of this encounter Progress Notes * Nino Hammonds MD - 02/08/2025 3:45 PM EDT Images from the original note were not included. Subjective Patient ID: Evelio Carrillo is a 69 y.o. male who presents for No chief complaint on file.. Evelio presents today for back pain but if he sits down the pain will go way. He is having leg swelling and he feels like he has to pee more often/ He tired OTC Motrin but that didn't help. This hasbeen going on for 4 days. Over the past 2 weeks, how often have you been bothered by any of the following problems? Little interest or pleasure in doing things: Not at all Feeling down, depressed, or hopeless: Not at all Patient Health Questionnaire-2 Score: 0 Current Outpatient Medications on File Prior to Visit Medication Sig Dispense Refill aspirin 81 MG EC tablet Take 81 mg by mouth Daily finasteride (Proscar) 5 MG tablet TAKE 1 TABLET BY MOUTH EVERY DAY IN THE MORNING 90 tablet 4 insulin glargine-lixisenatide (Soliqua) 100-33 UNT-MCG/ML pen Inject 60 Units under the skin in themorning. Inject before meals. 15 mL 11 insulin pen needle (BD Pen Needle Mery 2nd Gen) 32G x 4 mm misc USE TWICE A DAY DIRECTED 200 each 3 insulin regular (NovoLIN R FlexPen) 100 UNIT/ML pen INJECT 30 UNITS SUBCUTANEOUSLY ONCE IN THE EVENING BEFORE MEAL 30 mL 3 Lancet Devices (Autolet) lancing device 1 each by Other route in the morning and 1 each at noon and1 each in the evening and 1 each before bedtime. Lancets (OneTouch Delica Plus [id number]) misc USE TWICE DAILY FOR FINGER STICK E11.65 lisinopril 5 MG tablet TAKE 1 TABLET BY MOUTH EVERY DAY 100 tablet 4 lovastatin (Mevacor) 20 MG tablet TAKE 1 TABLET BY MOUTH AT BEDTIME 100 tablet 3 OneTouch Ultra test strip 1 each by Other route in the morning and 1 each in the evening and 1 eachbefore bedtime. terazosin (Hytrin) 5 MG capsule TAKE 1 [...] date: 07/08/1959 Quit date: 07/08/1999 Years since quittin.6 Smokeless tobacco: Never Vaping Use Vaping status: Never Used Substance Use Topics Alcohol use: Yes Drug use: Not Currently Types: Marijuana Family History Problem Relation Name Age of Onset Diabetes Mother Stroke Mother Arthritis Mother Arthritis Father Cancer Father Past Medical History: Diagnosis Date Colon polyp 01/2019 tubular adenoma Controlled type 2 diabetes mellitus with hyperglycemia (HCC) Diabetes mellitus (HCC) History of DVT (deep vein thrombosis) History of kidney cancer History of pulmonary embolus (PE) Hx of echocardiogram 01/16/2019 ECHO EF 65% Past Surgical History: Procedure Laterality Date COLONOSCOPY 03/13/2023 COLONOSCOPY W/ POLYPECTOMY 01/14/2019 HERNIA REPAIR Right inguinal NEPHRECTOMY Visit Vitals BP 130/58 Pulse 103 Resp 17 Ht 6' 1 Wt 248 lb SpO2 (!) 87% BMI 32.72 kg/m?? Smoking Status Former BSA 2.4 m?? Review of Systems Objective Physical Exam Constitutional: General: He is not in acute distress. Appearance: Normal appearance. Cardiovascular: Rate and Rhythm: Normal rate and regular rhythm. Heart sounds: No murmur heard. Pulmonary: Effort: Pulmonary effort is normal. No respiratory distress. Breath sounds: No wheezing, rhonchi or rales. Abdominal: General: Abdomen is flat. Bowel sounds are normal. Palpations: Abdomen is soft. Musculoskeletal: Right lower leg: Edema present. Left lower leg: Edema present. Neurological: Mental Status: He is alert. Psychiatric: Mood and Affect: Mood normal. Thought Content: Thought content normal. Office Visit on 02/08/2025 Component Date Value Ref Range Status Hemoglobin A1C 02/08/2025 6.6 Final Assessment/Plan Diagnoses and all orders for this visit: Acute bilateral low back pain without sciatica - XR lumbar spine 2 or 3 views; Future - CBC and differential - Comprehensive metabolic panel; Future - Urinalysis with microscopic; Future - tiZANidine (Zanaflex) 4 MG tablet; Take 1 tablet (4 mg) by mouth every 6 (six) hours if needed for muscle spasms for up to 10 days Type 2 diabetes mellitus with chronic kidney disease, with long-term current use of insulin, unspecified CKD stage (HCC) - POCT glycosylated hemoglobin (Hb A1C) docked device Localized edema - CBC and differential - Comprehensive metabolic panel; Future - Urinalysis with microscopic; Future - furosemide (Lasix) 20 MG tablet; Take 1 tablet (20 mg) by mouth Daily for 7 days History of primary malignant neoplasm of kidney - XR lumbar spine 2 or 3 views; Future - CBC and differential - Comprehensive metabolic panel; Future - Urinalysis with microscopic; Future Follow up in about 1 week (around 02/15/2025) for Test/Lab Review, F/U med changes. documented in this encounter Plan of Treatment Upcoming Encounters Date Type Department Care Team (Late st Contact Info) Description 02/15/2025 4:30 PM EDT Office Visit [facility] [place] [facility] 112 [facility] [address] [place] [address] Nino Hammonds MD 112 [facility] [address] [place] [address] 02/18/2025 10:00 AM EDT Office Visit [facility] [place] [facility] [address] [place] [address] Nino Hammonds MD [address] [place] [address] Scheduled Orders Name Type Priority Associated Diagnoses Orde r Schedule XR lumbar spine 2 or 3 views Imaging Routine Acute bilateral low back pain without sciatica History of primary malignant neoplasm of kidney Expected: 02/08/2025, Expires: 02/08/2026 CBC and differential Lab Routine Acute bilateral low back pain without sciatica Localized edema History of primary malignant neoplasm of kidney Ordered: 02/08/2025 Comprehensive metabolic panel Lab Routine Acute bilateral low back pain without sciatica Localized edema History of primary malignant neoplasm of kidney Expected: 02/08/2025 (Approximate), Expires: 02/08/2026 Urinalysis with microscopic Lab Routine Acute bilateral low back pain without sciatica Localized edema History of primary malignant neoplasm of kidney Expected: 02/08/2025 (Approximate), Expires: 02/08/2026 documented as of this encounter Procedures Procedure Name Priority Date/Time Associated Diagnosis Comments POCT GLYCOSYLATED HEMOGLOBIN (HGB A1C) Routine 02/08/2025 4:08 PM EDT Type 2 diabetes mellitus with chronic kidney disease, with long-term current use of insulin, unspecified CKD stage (HCC) documented in this encounter Results * (ABNORMAL) POCT glycosylated hemoglobin (Hb A1C) docked device (02/08/2025 4:08 PM EDT) Hemoglobin A1C 6.6 Blood Venous blood specimen / Unknown 02/08/2025 4:08 PM EDT Nino Hammonds MD POINT OF CARE TEST ENTER/EDIT ORDERABLES Final Result documented in this encounter Visit Diagnoses Diagnosis Acute bilateral low back pain without sciatica- Primary Type 2 diabetes mellitus with chronic kidney disease, with long-term current use of insulin, unspecified CKD stage (HCC) Localized edema Edema History of primary malignant neoplasm of kidney documented in this encounter Care Teams Cerner Analyst Relationship Specialty Start Date End Date Nino Hammonds MD [address] [place] [address] PCP - ACO Reach 11/29/22 Nino Hammonds MD [address] [facility] 110 [place] [address] PCP - General Internal Medicine 12/26/22 documented as of this encounter
--- OUTSIDE RECORDS SUMMARY | 2025-02-09 14:30 | XMS_ITS | Encounter Summary ---
Author Organization [facility] Address [address] [place] [address] Care Team Providers Care Supervisor Brake Repair Name Role Phone Nino Hammonds MD Unavailable [phone] Nino Hammonds MD Primary Care Provider [phone] Encounter Details Date Type Department Care Team (Late st Contact Info) Description 02/09/2025 Telephone [facility] [place] [facility] 112 [facility] 100 [place] [phone] Nino Hammonds MD 112 [facility] 110 [place] [address] Social History Tobacco Use Types Packs/Day Years [...] on file documented as of this encounter Miscellaneous Notes * Telephone Encounter - ANU COBB - 02/09/2025 1:38 PM EDT We can cancel the appointment on the * Telephone Encounter - Raine Houser - 02/09/2025 1:06 PM EDT Bj strong, he has an appointment on the but has one scheduled also for the . He is askingif he really needs that appt on the ? documented in this encounter Plan of Treatment Upcoming Encounters Date Type Department Care Team (Late st Contact Info) Description 02/15/2025 4:30 PM EDT Office Visit [facility] [place] [facility] [address] [facility] [address] [place] [address] Nino Hammonds MD [address] [facility] [address] [place] [address] 02/18/2025 10:00 AM EDT Office Visit [facility] [place] [facility] [address] [facility] [address] [place] [address] Nino Hammonds MD [address] [facility] [address] [place] [address] documented as of this encounter Visit Diagnoses Not on filedocumented in this encounter Care Teams Supervisor Brake Repair Relationship Specialty Start Date End Date Nino Hammonds MD [address] [facility] [address] [place] [address] PCP - ACO Reach 11/29/22 Nino Hammonds MD [address] [facility] [address] [place] [address] PCP - General Internal Medicine 12/26/22 documented as of this encounter
--- OUTSIDE RECORDS SUMMARY | 2025-02-09 14:30 | XMS_ITS | Encounter Summary ---
Author Organization [facility] Address [address] [place] [address] Care Team Providers Care Cnc Operator Programmer Name Role Phone Nino Hammonds MD Unavailable [phone] Nino Hammonds MD Primary Care Provider [phone] Encounter Details Date Type Department Care Team (Late Contact Info) Description 01/04/2025 Abstract [facility] [place] [facility] [address] [facility] 110 [place] [address] Nino Hammonds MD [address] [facility] 110 [place] [address] Social History Tobacco Use Types Packs/Day Years [...] EDT Office Visit [facility] [place] [facility] [address] [facility] [address] [place] [phone] Nino Hammonds MD [address] [facility] 110 [place] [address] 02/18/2025 10:00 AM EDT Office Visit [facility] [place] [facility] [address] [facility] [address] [place] [address] Nino Hammonds MD [address] [facility] 110 [place] [address] documented as of this encounter Visit Diagnoses Not on filedocumented in this encounter Care Teams Cnc Operator Programmer Relationship Specialty Start Date End Date Nino Hammonds MD [address] [facility] [address] [place] [address] PCP - ACO Reach 11/29/22 Nino Hammonds MD [address] [facility] [address] [place] [address] PCP - General Internal Medicine 12/26/22 documented as of this encounter
--- OUTSIDE RECORDS SUMMARY | 2025-02-09 14:30 | XMS_ITS | Encounter Summary ---
Author Organization [facility] Address [address] [place] [address] Care Team Providers Care Printed Circuit Boards Contact Printer Name Role Phone Nino Hammonds MD Unavailable [phone] Nino Hammonds MD Primary Care Provider [phone] Encounter Details Date Type Department Care Team (Late Contact Info) Description 02/25/2024 Abstract [facility] [place] Yang [address] [facility] 110 [place] [address] Nino Hammonds MD [address] [facility] 110 [place] [address] Social History Tobacco Use Types Packs/Day Years [...] Visit [facility] [place] Zaragoza [address] [facility] 110 [place] [address] Nino Hammonds MD [address] [facility] 110 [place] [address] 02/18/2025 10:00 AM EDT Office Visit [facility] [place] [facility] [address] [facility] [address] [place] [address] Nino Hammonds MD [address] [facility] 110 [place] [address] documented as of this encounter Visit Diagnoses Not on filedocumented in this encounter Care Teams Printed Circuit Boards Contact Printer Relationship Specialty Start Date End Date Nino Hammonds MD [address] [facility] [address] [place] [address] PCP - ACO Reach 11/29/22 Nino Hammonds MD [address] [facility] [address] [place] [address] PCP - General Internal Medicine 12/26/22 documented as of this encounter
--- OUTSIDE RECORDS SUMMARY | 2025-02-09 14:30 | XMS_ITS | Encounter Summary ---
Author Organization [facility] Address [address] [place] [address] Care Team Providers Care Elevated Guard Name Role Phone Nino Hammonds MD Unavailable [phone] Nino Hammonds MD Primary Care Provider [phone] Encounter Details Date Type Department Care Team (Late Contact Info) Description 07/10/2023 Abstract [facility] [place] [facility] [address] [facility] 110 [place] [address] Nino Hammonds MD [address] [facility] 110 [place] [address] Social History Tobacco Use Types Packs/Day Years [...] Department Care Team (Late Contact Info) Description 02/15/2025 4:30 PM EDT Office Visit [facility] [place] [facility] [address] [facility] [address] [place] [address] Nino Hammonsd MD [address] [facility] [address] [place] [address] 02/18/2025 10:00 AM EDT Office Visit [facility] [place] [facility] [address] [facility] [address] [place] [address] Nino Hammonds MD [address] [facility] 110 [place] [address] documented as of this encounter Visit Diagnoses Not on filedocumented in this encounter Care Teams Elevated Guard Relationship Specialty Start Date End Date Nino Hammonds MD [address] [facility] [address] [place] [address] PCP - ACO Reach 11/29/22 Nino Hammonds MD [address] [facility] 110 [place] [address] PCP - General Internal Medicine 12/26/22 documented as of this encounter
--- OUTSIDE RECORDS SUMMARY | 2025-02-09 14:30 | XMS_ITS | Encounter Summary ---
Author Organization [facility] Address [address] [place] [address] Care Team Providers Care Bench Mover Name Role Phone Nino Hammonds MD Unavailable [phone] Nino Hammonds MD Primary Care Provider [phone] Encounter Details Date Type Department Care Team (Late st Contact Info) Description 08/06/2023 Abstract [facility] [place] Zaragoza [address] [facility] 110 [place] [address] Nino Hammonds MD [address] [facility] 110 [place] [address] Social History Tobacco Use Types Packs/Day Years [...] Visit [facility] [place] Zaragoza [address] [facility] 110 [place] [address] Nino Hammonds MD [address] [facility] 110 [place] [address] 02/18/2025 10:00 AM EDT Office Visit [facility] [place] [facility] [address] [facility] [address] [place] [address] Nino Hammonds MD [address] [facility] 110 [place] [address] documented as of this encounter Visit Diagnoses Not on filedocumented in this encounter Care Teams Bench Mover Relationship Specialty Start Date End Date Nino Hammonds MD [address] [facility] [address] [place] [address] PCP - ACO Reach 11/29/22 Nino Hammonds MD [address] [facility] [address] [place] [address] PCP - General Internal Medicine 12/26/22 documented as of this encounter
--- OUTSIDE RECORDS SUMMARY | 2025-02-09 14:30 | XMS_ITS | Clinical Summary ---
Author Organization [facility] Address [address] [place] [address] Care Team Providers Care Blacksmith Assistant Name Role Phone Nino Hammonds MD Unavailable [phone] Nino Hammonds MD Primary Care Provider [phone] Allergies No known active allergies Medications Lancet Devices (Autolet) lancing device 1 each by Other route in the morning and 1 each at noon and 1 each in the evening and 1 each before bedtime. Active Lancets (OneTouch Delica Plus [id number]) [facility] USE TWICE DAILY FOR FINGER STICK E11.65 05/22/20 22 Active aspirin 81 MG EC tablet Take 81 mg by mouth Daily Active lisinopril 5 MG tabletIndications: Mixed hyperlipidemia TAKE 1 TABLET BY MOUTH EVERY DAY 100 tablet 4 03/16/20 24 Active terazosin (Hytrin) 5 MG capsuleIndications :BPH with urinary obstruction TAKE 1 CAPSULE BY MOUTH EVERY DAY 100 capsule 3 05/15/20 24 Active lovastatin (Mevacor) 20 MG tabletIndications: Mixed hyperlipidemia TAKE 1 TABLET BY MOUTH AT BEDTIME 100 tablet 3 05/15/20 24 Active insulin regular (NovoLIN R FlexPen) 100 UNIT/ML penIndications:Typ e 2 diabetes mellitus with diabetic neuropathy, with long-term current use of insulin (HCC) INJECT 30 UNITS SUBCUTANEOUSLY ONCE IN THE EVENING BEFORE MEAL 30 mL 3 05/15/20 24 Active finasteride (Proscar) 5 MG tabletIndications: Benign prostatic hyperplasia with lower urinary tract symptoms, symptom details unspecified TAKE 1 TABLET BY MOUTH EVERY DAY IN THE MORNING 90 tablet 4 12/18/19 25 Active insulin glargine-lixisenat sara (Soliqua) 100-33 UNT-MCG/ML penIndications:Unc ontrolled type 2 diabetes mellitus with hyperglycemia (HCC) Inject 60 Units under the skin in the morning. Inject before meals. 15 mL 11 12/18/19 25 Active insulin pen needle (BD Pen Needle Mery 2nd Gen) 32G x 4 mm miscIndications:Ty pe 2 diabetes mellitus with diabetic neuropathy, with long-term current use of insulin (HCC) USE TWICE A DAY DIRECTED 200 each 3 12/25/19 25 Active OneTouch Ultra test strip 1 each by Other route in the morning and 1 each in the evening and 1 each before bedtime. 12/12/19 25 Active furosemide (Lasix) 20 MG tabletIndications: Localized edema Take 1 tablet (20 mg) by mouth Daily for 7 days 7 tablet 02/09/20 25 025 Active tiZANidine (Zanaflex) 4 MG tabletIndications: Acute bilateral low back pain without sciatica Take 1 tablet (4 mg) by mouth every 6 (six) hours if needed for muscle spasms for up to 10 days 30 tablet 02/09/20 25 025 Active Active Problems Problem Noted Date Diagnosed Date Obesity, Class I, BMI 30-34.9 02/24/2024 Elevated PSA 03/04/2023 Protein in urine 03/04/2023 Pulmonary embolism 03/04/2023 History of colon polyps 03/04/2023 BPH with obstruction/lower urinary tract symptom s 12/29/[address] 12/29/2022 Hypercoagulable state ([facility]) 12/29/2022 Other obstructive and reflux uropathy 12/29/2022 Stage 3b chronic kidney disease 12/29/2022 Tubulovillous adenoma of colon 12/29/2022 Type 2 diabetes mellitus wit h diabetic neuropathy, with long-term current use of insulin 12/29/2022 Mixed hyperlipidemia 10/31/2018 Diabetic peripheral neuropat hy associated with type 2 diabetes mellitus 10/31/2018 Benign neoplasm of colon 10/31/2018 History of primary malignant neoplasm of kidney 10/31/2018 halfway current use of anticoagulant therapy 0 10/31/2018 History of DVT (deep vein thrombosis) 10/30/2018 History of pulmonary embolism 10/30/2018 Resolved Problems Problem Noted Date Diagnosed Date Resolved Date Anticoagulated 03/04/2023 07/31/2023 Family history of prostate cancer 03/04/2023 07/31/2023 Hesitancy 03/04/2023 07/31/2023 Weak urinary stream 03/04/2023 07/31/19 Renal mass 12/29/2022 07/31/2023 Type 2 diabetes mellitus 12/12/2018 Uncontrolled type 2 diabetes mellitus with hyperglycemia 12/12/2018 07/31/2023 Stage 3 chronic kidney disease 10/31/2018 07/31/2023 Hyperglycemia due to type 2 diabetes mellitus 10/31/1907/31/2023 Encounters Date Type Department Care Team Description 02/09/2025 Telephone [facility] [place] [facility] [address] [facility] [address] [place] [address] Nino Hammonds MD 02/08/2025 3:45 PM EDT Office Visit [facility] [place] [facility] [address] [facility] [address] [place] [address] Nnio Hammonds MD Acute bilateral low back pain without sciatica (Primary Dx); Type 2 diabetes mellitus with chronic kidney disease, with long-term current use of insulin, unspecified CKD stage (HCC); Localized edema; History of primary malignant neoplasm of kidney 02/08/2025 Bamboo flowsheet [facility] [place] [facility] [address] [facility] [address] [place] [address] Nino Hammonds MD 02/08/2025 Travel 01/11/2025 11:00 AM EDT Office Visit [facility] [place] [facility] [address] [facility] [address] [place] [address] Nino Hammonds MD Acute bronchiolitis due to unspecified organism (Primary Dx) 01/11/2025 Bamboo flowsheet [facility] [place] [facility] [address] [facility] [address] [place] [address] Nino Hammonds MD 01/11/2025 Travel 01/05/2025 Abstract [facility] [place] [facility] [address] [facility] [address] [place] [address] Nino Hammonds MD 01/05/2025 Abstract [facility] [address] [place] [address] iLz Pearson LPN 01/04/2025 Patient Outreach [facility] [address] [place] [address] [place] Pearson LPN 01/04/2025 Abstract [facility] [address] [facility] [address] [place] [address] Nino Hammonds MD 12/24/2024 [facility] [address] [facility] [address] [place] [address] Nino Hammonds MD Type 2 diabetes mellitus with diabetic neuropathy, with long-term current use of insulin (HCC) 12/17/2024 Telephone [facility] [address] [facility] 100 [place] [address] Nino Hammonds MD 12/17/2024 Refill [facility] [address] [facility] [address] [place] [address] Nino Hammonds MD Benign prostatic hyperplasia with lower urinary tract symptoms, symptom details unspecified 12/09/2024 Refill [facility] [address] [facility] [address] [place] [address] Nino Hammonds MD Uncontrolled type 2 diabetes mellitus with hyperglycemia (HCC) from Last 3 Months Immunizations Immunization Administration [...] Mass Index 32.72 02/08/2025 4:03 PM EDT Plan of Treatment Upcoming Encounters Date Type Department Care Team (Late st Contact Info) Description 02/15/2025 4:30 PM EDT Office Visit [facility] [place] [facility] [address] [facility] 110 [place] [address] Nino Hammonds MD [address] [facility] 110 [place] [address] 02/18/2025 10:00 AM EDT Office Visit [facility] [place] [facility] [address] [facility] 110 [place] [address] Nino Hammonds MD [address] [facility] 110 [place] [address] Health Maintenance Due Date Last Done Comments CT Colonography 1954 FIT-DNA 1954 FIT 1954 FOBT 1954 Sigmoidoscopy 1954 Pneumococcal Vaccine: 65+ Ye ars (1 of 2 - PCV) 1973 Diabetes: Urine Protein Screening 02/13/2025 024 Influenza Vaccine (#1) 2025 , 05/04/2022, 05/31/2021, Additional history exists Diabetes: Hemoglobin A1C 05/11/2025 025, 10/26/2024, 06/25/2024, Additional history exists Medicare Annual Wellness (AWV) 10/26/2025 0 10/26/2024, 07/31/2023, 01/02/2023, Additional history exists Diabetes: Retinopathy Screening 12/30/2025 12/31/2023, 11/15/2021, 11/19/2019, Additional history exists Colonoscopy 03/13/2033 03/13/2023, 12/2022, 03/13/2023, Additional history exists Colorectal Cancer Screening 03/13/2033 Procedures Procedure Name Priority Date/Time Associated Diagnosis Comments POCT GLYCOSYLATED HEMOGLOBIN (HGB A1C) Routine 02/08/2025 4:08 PM EDT Type 2 diabetes mellitus with chronic kidney disease, with long-term current use of insulin, unspecified CKD stage (HCC) MICROALBUMIN / CREATININE URINE RATIO Routine 02/14/2024 8:21 AM EDT Type 2 diabetes mellitus with diabetic neuropathy, with long-term current use of insulin (HCC) DIABETIC RETINOPATHY SCREENING - OU - BOTH EYES Routine 12/31/2023 COLONOSCOPY DIAGNOSTIC Routine 03/13/2023 from Last 3 Months or Most Recently Relevant to Health Maintenance Results * (ABNORMAL) POCT glycosylated hemoglobin (Hb [...] Performing Organization Information Site ID: [id number] Name: [employer] [facility] Address: [address] [place] [address], [address] [place] [id number] Director: Nathanael Muñoz MD us Nino Hammonds MD LAB URINE ORDERABLES Final Res ult [facility] * Diabetic Retinopathy Screening - OU - Both Eyes (12/31/2023) RESULTS ndr Anatomical Region Laterality Modality Head Other 12/31/2023 us Nino Hammonds MD OPHTH PHOTOGRAPHY Final Result * COLONOSCOPY DIAGNOSTIC (03/13/2023) Anatomical Region Laterality Modality Radiographic Verna ging 03/13/2023 us Nino Hammonds MD IMG XR PROCEDURES Final Result from Last 3 Months or Most Recently Relevant to Health Maintenance Insurance MEDICARE [facility] MEDICARE SUPPLEMENT Care Teams Blacksmith Assistant Relationship Specialty Start Date End Date Nino Hammonds MD [address] [facility] 110 [place] [address] PCP - ACO Reach 11/29/22 Nino Hammonds MD [address] [facility] 110 [place] [address] PCP - General Internal Medicine 12/26/22
--- OUTSIDE RECORDS SUMMARY | 2025-02-09 14:30 | XMS_ITS | Encounter Summary ---
Author Organization [facility] Address [address] [place] [address] Care Team Providers Care Explosion Welder Name Role Phone Nino Hammonds MD Unavailable [phone] Nino Hammonds MD Primary Care Provider [phone] Encounter Details Date Type Department Care Team (Late st Contact Info) Description 01/05/2025 Abstract [facility] [place] Yang [address] [facility] 110 [place] [address] Nino Hammonds MD [address] [facility] 110 [place] [address] Social History Tobacco Use Types Packs/Day Years [...] Visit [facility] [place] Zaragoza [address] [facility] [address] [place] [address] Nino Hammonds MD [address] [facility] 110 [place] [address] 02/18/2025 10:00 AM EDT Office Visit [facility] [place] [facility] [address] [facility] [address] [place] [address] Nino Hammonds MD [address] [facility] 110 [place] [address] documented as of this encounter Visit Diagnoses Not on filedocumented in this encounter Care Teams Explosion Welder Relationship Specialty Start Date End Date Nino Hammonds MD [address] [facility] [address] [place] [address] PCP - ACO Reach 11/29/22 Nino Hammonds MD [address] [facility] [address] [place] [address] PCP - General Internal Medicine 12/26/22 documented as of this encounter
--- OUTSIDE RECORDS SUMMARY | 2025-02-09 14:30 | XMS_ITS | Encounter Summary ---
Author Organization [facility] Address [address] [place] [address] Care Team Providers Care Deli Cook Name Role Phone Nino Hammonds MD Unavailable [phone] Nino Hammonds MD Primary Care Provider [phone] Encounter Details Date Type Department Care Team (Late st Contact Info) Description 10/26/2024 Abstract [facility] [place] [facility] [address] [facility] [address] [place] [address] Nino Hammonds MD [address] [facility] 110 [place], [place] [address] Social History Tobacco Use Types Packs/Day Years [...] Questionnaire -2 Score 0 10/26/2024 8:00 AM [employer] N documented as of this encounter Plan of Treatment Upcoming Encounters Date Type Department Care Team (Late st Contact Info) Description 02/15/2025 4:30 PM EDT Office Visit [facility] [place] [facility] [address] [facility] [address] [place] [address] Nino Hammonds MD [address] [place] [address] [place] [address] 02/18/2025 10:00 AM EDT Office Visit [facility] [place] [facility] [address] [facility] [address] [place] [address] Nino Hammonds MD [address] [facility] [address] [place] [address] documented as of this encounter Visit Diagnoses Not on filedocumented in this encounter Care Teams Deli Cook Relationship Specialty Start Date End Date Nino Hammonds MD [address] [place] [address] [place] [address] PCP - ACO Reach 11/29/22 Nino Hammonds MD [address] [place] [address] [place] [address] PCP - General Internal Medicine 12/26/22 documented as of this encounter
--- OUTSIDE RECORDS SUMMARY | 2025-02-09 14:30 | XMS_ITS | Encounter Summary ---
Author Organization [facility] Address [address] [place] [address] Care Team Providers Care Yarn Washer Name Role Phone Nino Hammonds MD Unavailable [phone] Nino Hammonds MD Primary Care Provider [phone] Encounter Details Date Type Department Care Team (Late Contact Info) Description 01/13/2023 Abstract [facility] [place] [facility] [address] [facility] [address] [place] [address] Nino Hammonds MD [address] [facility] [address] [place] [address] Social History Tobacco Use Types Packs/Day Years [...] PM EDT Office Visit [facility] [place] [facility] [address] [facility] [address] [place] [address] Nino Hammonds MD [address] [facility] [address] [place] [address] 02/18/2025 10:00 AM EDT Office Visit [facility] [place] [facility] [address] [facility] [address] [place] [address] Nino Hammonds MD [address] [place] [address] [place] [address] documented as of this encounter Visit Diagnoses Not on filedocumented in this encounter Care Teams Yarn Washer Relationship Specialty Start Date End Date Nino Hammonds MD [address] [facility] [address] [place] [address] PCP - ACO Reach 11/29/22 Nino Hammonds MD [address] [facility] [address] [place] [address] PCP - General Internal Medicine 12/26/22 documented as of this encounter
--- OUTSIDE RECORDS SUMMARY | 2025-02-09 14:30 | XMS_ITS | Clinical Summary ---
Author Organization [facility] Address [address] [place] [address] Care Team Providers Care Inspector Final Assembly Electrical Name Role Phone Unavailable Primary Care Provider Unavailabl e Social History Tobacco Use Types Packs/Day Years Used Date Smoking Tobacco: Never Assessed Sex and Gender Information Value Date Recorded Sex Assigned at Not on file Legal Sex Male 10:05 PM EDT Gender Identity Not on file Sexual Orientation Not on file Last Filed Vital Signs Vital Sign Reading Time Taken Comments Blood Pressure 166/68 01/06/2019 10:26 AM EDT Pulse - - Temperature - - Respiratory Rate - - Oxygen Saturation 98% 01/06/2019 10:26 AM EDT Inhaled Oxygen Concentration - - Weight 98.4 kg (217 lb) 01/06/2019 10:22 AM EDT Height 185.4 cm (6' 1 ) 01/06/2019 10:22 AM EDT Body Mass Index 28.63 01/06/2019 10:22 AM EDT Plan of Treatment Not on file
--- OUTSIDE RECORDS SUMMARY | 2025-02-09 14:30 | XMS_ITS | Encounter Summary ---
Author Organization [facility] Address [address] [place] [address] Care Team Providers Care Time Lock Expert Name Role Phone Nino Hammonds MD Unavailable [phone] Nino Hammonds MD Primary Care Provider [phone] Encounter Details Date Type Department Care Team (Late Contact Info) Description 01/05/2025 Abstract [facility] [address] [place] [address] [place] Pearson LPN [address] [facility] 110 [place] [address] Social History Tobacco Use Types Packs/Day Years [...] Visit [facility] [place] Zaragoza [address] [facility] [address] [place] [address] Nino Hammonds MD [address] [place] 110 [place] [address] 02/18/2025 10:00 AM EDT Office Visit [facility] [place] [facility] [address] [facility] [address] [place] [address] Nino Hammonds MD [address] [facility] 110 [place] [address] documented as of this encounter Visit Diagnoses Not on filedocumented in this encounter Care Teams Time Lock Expert Relationship Specialty Start Date End Date Nino Hammonds MD [address] [facility] [address] [place] [address] PCP - ACO Reach 11/29/22 Nino Hammonds MD [address] [facility] [address] [place] [address] PCP - General Internal Medicine 12/26/22 documented as of this encounter
--- OUTSIDE RECORDS SUMMARY | 2025-02-09 14:30 | XMS_ITS | Encounter Summary ---
Author Organization [facility] Address [address] [place] [address] Care Team Providers Care Catering Truck Driver Name Role Phone Nino Hammonds MD Unavailable [phone] Nino Hammonds MD Primary Care Provider [phone] Encounter Details Date Type Department Care Team (Latest Contact Info) Description 02/08/2025 Travel Social History Tobacco Use Types Packs/Day Years [...] ANU COBB documented as of this encounter Plan of Treatment Upcoming Encounters Date Type Department Care Team ( st Contact Info) Description 02/15/2025 4:30 PM EDT Office Visit [facility] [place] Zaragoza [address] [facility] 110 [place] [address] Nino Hammonds MD [address] [place] [address] [place] [address] 02/18/2025 10:00 AM EDT Office Visit [facility] [place] [facility] [address] [facility] [address] [place] [address] Nino Hammonds MD [address] [facility] 110 [place] [address] documented as of this encounter Visit Diagnoses Not on filedocumented in this encounter Care Teams Catering Truck Driver Relationship Specialty Start Date End Date Nino Hammonds MD [address] [facility] 110 [place] [address] PCP - ACO Reach 11/29/22 Nino Hammonds MD [address] [facility] 110 [place] [address] PCP - General Internal Medicine 12/26/22 documented as of this encounter
--- OUTSIDE RECORDS SUMMARY | 2025-02-09 14:30 | XMS_ITS | Encounter Summary ---
Author Organization [facility] Address [address] [place] [address] Care Team Providers Care Furniture Duster Name Role Phone Nino Hammonds MD Unavailable [phone] Nino Hammonds MD Primary Care Provider [phone] Encounter Details Date Type Department Care Team (Late Contact Info) Description 02/08/2025 Bamboo flowsheet [facility] [place] [facility] [address] [facility] [address] [place] [address] Nino Hammonds MD [address] [facility] 110 [place] [address] Social History Tobacco Use Types Packs/Day Years [...] Visit [facility] [place] [facility] [address] [facility] [address] [place] [address] Nino Hammonds MD [address] [facility] 110 [place], [place] [id number] 02/18/2025 10:00 AM EDT Office Visit [facility] [place] [facility] [address] [facility] [address] [place] [address] Nino Hammonds MD [address] [facility] 110 [place] [address] documented as of this encounter Visit Diagnoses Not on filedocumented in this encounter Care Teams Furniture Duster Relationship Specialty Start Date End Date Nino Hammonds MD [address] [facility] 110 [place] [address] PCP - ACO Reach 11/29/22 Nino Hammonds MD [address] [facility] [address] [place] [address] PCP - General Internal Medicine 12/26/22 documented as of this encounter
--- OUTSIDE RECORDS SUMMARY | 2025-02-09 14:30 | XMS_ITS | Encounter Summary ---
Author Organization [facility] Address [address] [place] [address] Care Team Providers Care Crop Grain Or Livestock Farm Manager Name Role Phone Nino Hammonds MD Unavailable [phone] Nino Hammonds MD Primary Care Provider [phone] Encounter Details Date Type Department Care Team (Late Contact Info) Description 06/12/2023 Abstract [facility] [place] [facility] [address] [facility] 110 [place] [address] Nino Hammonds MD [address] [facility] [address] [place] [address] Social History Tobacco Use Types Packs/Day Years [...] [facility] [address] [facility] [address] [place] [phone] Nino Hammonds MD [address] [facility] [address] [place] [address] 02/18/2025 10:00 AM EDT Office Visit [facility] [place] [facility] [address] [facility] [address] [place] [address] Nino Hammonds MD [address] [facility] 110 [place] [address] documented as of this encounter Visit Diagnoses Not on filedocumented in this encounter Care Teams Crop Grain Or Livestock Farm Manager Relationship Specialty Start Date End Date Nino Hammonds MD [address] [facility] [address] [place] [address] PCP - ACO Reach 11/29/22 Nino Hammonds MD [address] [facility] [address] [place] [address] PCP - General Internal Medicine 12/26/22 documented as of this encounter
--- NOTE | 2025-02-09 14:31 | XR_ITS ---
[facility] [place] [id number] Patient Name: TRACY IRENE MRN: [id number] date: 1955 Sex: M Assigned Patient Location: [facility] Current Patient Location: [facility] Accession/Order Number: [id number] Exam Date: 02/09/2025 15:08 Report Date: 02/09/2025 15:09 At the request of: WILLIAM CHOWDHURY Procedure: XR lumbar spine 2-3V LUMBAR SPINE - 2 views CLINICAL HISTORY: Acute Bilateral Low Back Pain, History Kidney Neoplasm COMPARISON: None FINDINGS: Vertebral body and disc space heights appear maintained. Mild endplate and facet joint degenerative changes. SI joints demonstrate degenerative change. IVC filter is in place. XR/XR lumbar spine 2-3V IMPRESSION: DEGENERATIVE CHANGES INVOLVING THE LUMBAR SPINE WITHOUT SIGNIFICANT DISC HEIGHT LOSS. Impression dictated by: Aamir Chu Jr., D.O. 02/09/2025 3:09 PM Dictation Location: [place] [address] Electronically authenticated by: [id number] Y Date: 02/09/2025 15:09
== END 2025-02-09 14:22 | disposition home or self-care (01) ==
LOC: RAD 14:27
PROVIDERS: PCP Internal Medicine; Visit Provider Internal Medicine
DX: M54.50 Low back pain, unspecified (principal); Z85.528 Personal history of other malignant neoplasm of kidney; M51.369 Other intervertebral disc degeneration, lumbar region without mention of lumbar back pain or lower extremity pain
CPT/HCPCS: 72100

== ENCOUNTER 2025-03-01 15:40 | Outpatient (OUT) | payer MEDICARE, SELFPAY ==
--- OUTSIDE RECORDS SUMMARY | 2025-02-15 16:30 | XMS_ITS | Encounter Summary ---
Author Organization [facility] Address [address] [place] [address] Care Team Providers Care Field Spec Name Role Phone Nino Hammonds MD Unavailable [phone] Nino Hammonds MD Primary Care Provider [phone] Reason for Referral * Imaging (Routine) - Closed Specialty Diagnoses / Procedures Referred By Contac t Referred To Contact Radiology Diagnoses Acute bilateral low back pain without sciatica History of primary malignant neoplasm of kidney Chronic kidney disease, stage 3b ([facility]-H[facility]) Procedures CT abdomen pelvis wo IV contrast CT abdomen wo IV contrast Nino Hammonds MD 112 [facility] 110 [place] [address] Phone: tel: fax: KATHERIN [facility] [address] [facility] [address] [place] [address] Phone: tel: fax: Referral ID Status Reason Start Date Expiration Date Visits Re quested Visits Authorized [id number] Closed 02/15/2025 08/14/2025 1 1 Reason for Visit * Reason Comments Back Pain Results Edema Encounter Details Date Type Department Care Team (Late st Contact Info) Description 02/15/2025 4:30 PM EDT Office Visit [facility] 112 [facility] 110 [place] [address] Nino Hammonds MD 112 [facility] 110 [place], [place] [id number] Acute bilateral low back pain without sciatica (Primary Dx); History of primary malignant neoplasm of kidney; Localized edema; Chronic kidney disease, stage 3b (CMS-HCC) Social History Tobacco Use Types Packs/Day Years [...] Sign Reading Time Taken Comments Blood Pressure 136/72 02/15/2025 4:13 PM EDT Pulse 88 02/15/2025 4:13 PM EDT Temperature - - Respiratory Rate - - Oxygen Saturation 98% 02/15/2025 4:13 PM EDT Inhaled Oxygen Concentration - - Weight 116 kg (255 lb) 02/15/2025 4:13 PM EDT Height 185.4 cm (6' 1 ) 02/15/2025 4:13 PM EDT Body Mass Index 33.64 02/15/2025 4:13 PM EDT documented in this encounter Progress Notes * Nino Hammonds MD - 02/15/2025 4:30 PM EDT Images from the original note were not included. Subjective Patient ID: Evelio Carrillo is a 69 y.o. male who presents for Back Pain, Results, and Edema. Follow up LBP started 1-2 weeks Mild improvement Pain worse with walking No help with Tizanadine so pt stopped taking that med Pt finished all daiuretic No help per pt edema present in bilateral feet and legs Back Pain Edema Current Outpatient Medications on File Prior to [...] evening and 1 each before bedtime. Lancets (TalkdeskTouch Delica Plus [id number]) misc USE TWICE DAILY FOR FINGER STICK [...] BY MOUTH EVERY DAY 100 capsule 3 [DISCONTINUED] furosemide (Lasix) 20 MG tablet Take 1 tablet (20 mg) by mouth Daily for 7 days 7 tablet 0 [DISCONTINUED] tiZANidine (Zanaflex) 4 MG tablet Take 1 tablet (4 mg) by mouth every 6 (six) hours if needed for muscle spasms for up to 10 days 30 tablet 0 No current facility-administered medications on file prior [...] REPAIR Right inguinal NEPHRECTOMY Visit Vitals BP 136/72 Pulse 88 Ht 6' 1 Wt 255 lb SpO2 98% BMI 33.64 kg/m?? Smoking Status Former BSA 2.44 m?? Review of Systems Musculoskeletal: Positive for back pain. Objective Physical Exam Constitutional: General: He [...] Range Status Hemoglobin A1C 02/08/2025 6.6 Final WHITE BLOOD CELL COUNT 02/09/2025 10.5 3.8 - 10.8 Thousand/uL Final RED BLOOD CELL COUNT 02/09/2025 3.80 (L) 4.20 - 5.80 Million/uL Final HEMOGLOBIN 02/09/2025 11.3 (L) 13.2 - 17.1 g/dL Final HEMATOCRIT 02/09/2025 35.6 (L) 38.5 - 50.0 % Final MCV 02/09/2025 93.7 80.0 - 100.0 fL Final MCH 02/09/2025 29.7 27.0 - 33.0 pg Final MCHC 02/09/2025 31.7 (L) 32.0 - 36.0 g/dL Final Comment: For adults, a slight decrease in the calculated MCHC value (in the range of 30 to 32 g/dL) is most likely not clinically significant; however, it should be interpreted with caution in correlation with other red cell parameters and the patient's clinical condition. RDW 02/09/2025 14.2 11.0 - 15.0 % Final PLATELET COUNT 02/09/2025 139 (L) 140 - 400 Thousand/uL Final MPV 02/09/2025 10.6 7.5 - 12.5 fL Final ABSOLUTE NEUTROPHILS 02/09/2025 7,970 (H) 1,500 - 7,800 cells/uL Final ABSOLUTE LYMPHOCYTES 02/09/2025 1,502 850 - 3,900 cells/uL Final ABSOLUTE MONOCYTES 02/09/2025 893 200 - 950 cells/uL Final ABSOLUTE EOSINOPHILS 02/09/2025 105 15 - 500 cells/uL Final ABSOLUTE BASOPHILS 02/09/2025 32 0 - 200 cells/uL Final NEUTROPHILS 02/09/2025 75.9 % Final LYMPHOCYTES 02/09/2025 14.3 % Final MONOCYTES 02/09/2025 8.5 % Final EOSINOPHILS 02/09/2025 1.0 % Final BASOPHILS 02/09/2025 0.3 % Final Glucose 02/09/2025 166 (H) 65 - 99 mg/dL Final Comment: Fasting reference interval For someone without known diabetes, a glucose value >125 mg/dL indicates that they may have diabetes and this should be confirmed with a follow-up test. BUN 02/09/2025 40 (H) 7 - 25 mg/dL Final Creatinine 02/09/2025 2.17 (H) 0.70 - 1.28 mg/dL Final EGFR 02/09/2025 32 (L) > OR = 60 mL/min/1.73m2 Final BUN/CREATININE RATIO 02/09/2025 18 6 - 22 (calc) Final Sodium 02/09/2025 138 135 - 146 mmol/L Final Potassium, Bld 02/09/2025 5.0 3.5 - 5.3 mmol/L Final Chloride 02/09/2025 106 98 - 110 mmol/L Final Carbon Dioxide 02/09/2025 25 20 - 32 mmol/L Final Calcium 02/09/2025 9.3 8.6 - 10.3 mg/dL Final PROTEIN, TOTAL 02/09/2025 7.3 6.1 - 8.1 g/dL Final ALBUMIN 02/09/2025 4.5 3.6 - 5.1 g/dL Final GLOBULIN 02/09/2025 2.8 1.9 - 3.7 g/dL (calc) Final ALBUMIN/GLOBULIN RATIO 02/09/2025 1.6 1.0 - 2.5 (calc) Final BILIRUBIN, TOTAL 02/09/2025 0.6 0.2 - 1.2 mg/dL Final ALKALINE PHOSPHATASE 02/09/2025 51 35 - 144 U/L Final AST 02/09/2025 18 10 - 35 U/L Final ALT 02/09/2025 15 9 - 46 U/L Final Assessment/Plan Diagnoses and all orders for this visit: Acute bilateral low back pain without sciatica - CT abdomen wo IV contrast; Future History of primary malignant neoplasm of kidney - CT abdomen wo IV contrast; Future Localized edema - torsemide (Demadex) 20 MG tablet; Take 1 tablet (20 mg) by mouth Daily for 15 days - Stop Furosemide, it is not working Chronic kidney disease, stage 3b (CMS-HCC) - CT abdomen wo IV contrast; Future - Need to r/o kidney stone/obstruction Follow up in about 1 week (around 02/22/2025). documented in this encounter Plan of Treatment Upcoming Encounters Date Type Department Care Team (Late st Contact Info) Description 03/24/2025 8:45 AM EDT Office Visit [facility] 112 [facility] 110 [place] [address] Nino Hammonds MD 112 [facility] 110 [place] [address] documented as of this encounter Results * CT abdomen pelvis wo IV contrast (02/22/2025 10:12 AM EDT) Anatomical Region Laterality Modality Body, Pelvis, Abdomen Computed T omography 02/23/2025 1:35 PM EDT Impressions 02/23/2025 1:52 PM EDT DVT of the at least the right external iliac vein. Wall thickening of the urinary bladder, thickening of the left ureter, and left- sided perinephric stranding is concerning for cystitis/pyelonephritis. Enlarged prostate. Colonic diverticulosis without diverticulitis. ELECTRONICALLY SIGNED BY: Braulio Monroe DO Narrative 02/23/2025 1:52 PM EDT EXAM: CT ABDOMEN PELVIS WO IV CONTRAST History: Worsening renal function. Low back pain. Bilateral leg swelling. Technique: Multiple contiguous axial images were obtained of the abdomen and pelvis from the level of the lung bases through the ischial tuberosities without contrast. Multiplanar reformats were obtained. All CT scans at this facility use dose modulation, iterative reconstruction, and/or weight based dosing when appropriate to reduce radiation dose to as low as reasonably achievable. Comparison: None available Findings: Lung bases are clear. Lack of intravenous contrast precludes optimal evaluation of the abdominal and pelvic viscera. The unenhanced liver, gallbladder, spleen, stomach, pancreas, and adrenal glands appear within normal limits. The right kidney is surgically absent. No urinary tract calculi or hydronephrosis. Mild left perinephric stranding is nonspecific. There is thickening of the distal left ureter with periureteral fat stranding. The urinary bladder is well distended. Diffuse wall thickening of the urinary bladder. Mild perivesicular fat stranding. The prostate is enlarged measuring approximately 5.1 x 5.1 x 5.5 cm. Abdominal aorta is nonaneurysmal. IVC filter is present. There is right inguinal soft tissue edema. Increased density is identified within the right external iliac vein which is mildly enlarged when compared to the left. No retroperitoneal or abdominal/pelvic lymphadenopathy. No small bowel obstruction. No overt colonic mass or pericolonic inflammation. Appendix is within normal limits. No free fluid or free air. Fat-containing ventral abdominal wall hernia measures approximately 2.5 cm in AP dimension by 6 cm in transverse dimension by 6 cm in craniocaudal dimension. Postsurgical changes of right inguinal hernia repair. No acute osseous abnormality. Procedure Note Braulio Monroe, DO - 02/23/2025 EXAM: CT ABDOMEN PELVIS WO IV CONTRAST History: Worsening renal function. Low back pain. Bilateral legswelling. Technique: Multiple contiguous axial images were obtained of the abdomenand pelvis from the level of the lung bases through the ischialtuberosities without contrast. Multiplanar reformats were obtained. All CT scans at this facility use dose modulation, iterativereconstruction, and/or weight based dosing when appropriate to reduceradiation dose to as low as reasonably achievable. Comparison: None available Findings: Lung bases are clear. Lack of intravenous contrast precludes optimal evaluation of the abdominaland pelvic viscera. The unenhanced liver, gallbladder, spleen, stomach,pancreas, and adrenal glands appear within normal limits. The right kidney is surgically absent. No urinary tract calculi orhydronephrosis. Mild left perinephric stranding is nonspecific. There isthickening of the distal left ureter with periureteral fat stranding. Theurinary bladder is well distended. Diffuse wall thickening of the urinarybladder. Mild perivesicular fat stranding. The prostate is enlargedmeasuring approximately 5.1 x 5.1 x 5.5 cm. Abdominal aorta is nonaneurysmal. IVC filter is present. There is rightinguinal soft tissue edema. Increased density is identified within theright external iliac vein which is mildly enlarged when compared to theleft. No retroperitoneal or abdominal/pelvic lymphadenopathy. No small bowel obstruction. No overt colonic mass or pericolonicinflammation. Appendix is within normal limits. No free fluid or freeair. Fat-containing ventral abdominal wall hernia measures approximately 2.5 cmin AP dimension by 6 cm in transverse dimension by 6 cm in craniocaudaldimension. Postsurgical changes of right inguinal hernia repair. No acute osseous abnormality. IMPRESSION: DVT of the at least the right external iliac vein. Wall thickening of the urinary bladder, thickening of the left ureter, andleft- sided perinephric stranding is concerning forcystitis/pyelonephritis. Enlarged prostate. Colonic diverticulosis without diverticulitis. ELECTRONICALLY SIGNED BY: Braulio Monroe DO Nino Hammonds MD IMG CT PROCEDURES Final Result documented in this encounter Visit Diagnoses Diagnosis Acute bilateral low back pain without sciatica- Primary History of primary malignant neoplasm of kidney Localized edema Edema Chronic kidney disease, stage 3b (CMS-HCC) Acute bilateral low back pain without sciatica History of primary malignant neoplasm of kidney Chronic kidney disease, stage 3b (CMS-HCC) documented in this encounter Care Teams Field Spec Relationship Specialty Start Date End Date Nino Hammonds MD 112 [facility] 110 [place] [address] PCP - ACO Reach 11/29/22 Nino Hammonds MD 112 [facility] 110 [place] [address] PCP - General Internal Medicine 12/26/22 documented as of this encounter
--- OUTSIDE RECORDS SUMMARY | 2025-02-22 10:15 | XMS_ITS | Encounter Summary ---
Author Organization [facility] Address [address] [place] [address] Care Team Providers Care Consumer Relations Complaint Clerk Name Role Phone Nino Hammonds MD Unavailable [phone] Nino Hammonds MD Primary Care Provider [phone] Peggy Wade INFUSION NURSE Unavailable [phone] Reason for Visit * Imaging (Routine) - Closed Specialty Diagnoses / Procedures Referred By Contac t Referred To Contact Radiology Diagnoses Acute bilateral low back pain without sciatica History of primary malignant neoplasm of kidney Chronic kidney disease, stage 3b (CMS-HCC) Procedures CT abdomen pelvis wo IV contrast CT abdomen wo IV contrast Nino Hammonds MD 112 [facility] 110 [place] [address] Phone: tel: fax: KATHERIN [facility] [address] [facility] [address] [place] [address] Phone: tel: fax: Referral ID Status Reason Start Date Expiration Date Visits Re quested Visits Authorized [id number] Closed 02/15/2025 08/14/2025 1 1 Encounter Details Date Type Department Care Team (Latest Contact Info) Description 02/22/2025 10:15 AM EDT Ancillary Procedure [facility] [address] [place] [place] [address] Acute bilateral low back pain without sciatica; History of primary malignant neoplasm of kidney; Chronic kidney disease, stage 3b (CMS-HCC) Social [...] 8:45 AM EDT Office Visit [facility] 112 [facility] 110 [place] [address] Nino Hammonds MD 112 [facility] 110 [place] [address] documented as of this encounter Procedures Procedure Name Priority Date/Time Associated Diagnosis Comments CT ABDOMEN PELVIS WO IV CONTRAST Routine 02/22/2025 10:12 AM EDT Acute bilateral low back pain without sciatica History of primary malignant neoplasm of kidney Chronic kidney disease, stage 3b (CMS-HCC) documented in this encounter Results * CT abdomen pelvis [...] Colonic diverticulosis without diverticulitis. ELECTRONICALLY SIGNED BY: DO Kamlesh Lazcano 02/23/2025 1:52 PM EDT EXAM: CT ABDOMEN [...] Diagnosis Acute bilateral low back pain without sciatica History of primary malignant neoplasm of kidney Chronic kidney disease, stage 3b (CMS-HCC) documented in this encounter Care Teams Consumer Relations Complaint Clerk Relationship Specialty Start Date End Date Nino Hammonds MD [address] [facility] [address] [place] [address] PCP - ACO Reach 11/29/22 Nino Hammonds MD [address] [facility] [address] [place] [address] PCP - General Internal Medicine 12/26/22 Peggy Wade, SHAY [address] [place] [address] Marketing Director Assisted Living Family Medicine 02/18/25 02/25/25 documented as of this encounter
--- OUTSIDE RECORDS SUMMARY | 2025-02-24 09:30 | XMS_ITS | Encounter Summary ---
Author Organization [facility] Address [address] [place] [address] Care Team Providers Care Psychology Professor Name Role Phone Nino Hammonds MD Unavailable [phone] Nino Hammonds MD Primary Care Provider [phone] Peggy Wade HOUSE FELLOW Unavailable [phone] Reason for Visit * Reason Comments Results Had CT abdomen compl eted d/t history of kidney cancer. Here to discuss results of that. Encounter Details Date Type Department Care Team (Late st Contact Info) Description 02/24/2025 9:30 AM EDT Office Visit [facility] 112 [facility] 110 [place] [address] Margoth Chance PA 112 [facility] 110 [place], [place] [id number] Acute deep vein thrombosis (DVT) of iliac vein of right lower extremity (HCC) (Primary Dx); Bladder wall thickening; History of DVT (deep vein thrombosis); Localized edema Social History Tobacco Use Types Packs/Day Years Used Date Smoking Tobacco: Former Cigarettes 3 40 0 07/08/1959 - 07/08/1999 Smokeless Tobacco: Never Alcohol Use Standard Drinks/Week Comments Yes 0 (1 standard drink = 0.6 oz pur e alcohol) PHQ-2 Answer Date Recorded Patient Health Questionnaire-2 Score 0 02/24/2025 Sex and Gender Information Value Date Recorded Sex Assigned at Not on file Legal Sex Male 9:31 PM EDT Gender Identity Not on file Sexual Orientation Not on file documented as of this encounter Last Filed Vital Signs Vital Sign Reading Time Taken Comments Blood Pressure 158/84 02/24/2025 9:36 AM EDT Pulse 93 02/24/2025 9:36 AM EDT Temperature - - Respiratory Rate 16 02/24/2025 9:36 AM EDT Oxygen Saturation 97% 02/24/2025 9:36 AM EDT Inhaled Oxygen Concentration - - Weight 110 kg (242 lb 6.4 oz) 02/24/2025 9:36 AM EDT Height 185.4 cm (6' 1 ) 02/24/2025 9:36 AM EDT Body Mass Index 31.98 02/24/2025 9:36 AM EDT documented in this encounter Functional Status * Over the past 2 weeks, how often have you been bothered by any of the following problems? Question Answer Date of Assessment Author Little interest or pleasure in doing things Not at all 02/24/2025 9:26 AM EDT Violette Crump LP N Feeling down, depressed, or hopeless Not at all 02/24/2025 9:26 AM EDT Violette Crump LP N Patient Health Questionnaire -2 Score 0 02/24/2025 9:26 AM EDT Violette Crump LP N documented as of this encounter Progress Notes * RAY Nieves - 02/24/2025 9:30 AM EDT Images from the original note were not included. HPI Results Additional comments: Had CT abdomen completed d/t history of kidney cancer. Here to discuss resultsof that. Last edited by Violette Crump LPN on 02/24/2025 9:25 AM. Subjective Patient ID: Evelio Carrillo is a 69 y.o. male who presents for edema. Evelio is present today for follow up edema. At his last o/v he was started on Torsemide and does feel the torsemide is not helping. He has bilateral leg edema, right worse than left. He does have severe pain in the upper part of his right leg. He does have closed sores on bottom of bilateral legs. He is wanting something for pain in his right leg. He has been taking Tylenol for the pain and notreally helping. States he cannot sleep due to the pain. Over the past 2 weeks, how often [...] each before bedtime. Lancets (OneTouch Delica Plus [id number]) misc USE TWICE DAILY FOR FINGER STICK [...] BY MOUTH EVERY DAY 100 capsule 3 torsemide (Demadex) 20 MG tablet TAKE 1 TABLET (20 MG) BY MOUTH DAILY FOR 15 DAYS 90 tablet 1 [DISCONTINUED] torsemide (Demadex) 20 MG tablet Take 1 tablet (20 mg) by mouth Daily for 15 days 15tablet 0 No current facility-administered medications on file [...] REPAIR Right inguinal NEPHRECTOMY Visit Vitals BP 158/84 Pulse 93 Resp 16 Ht 6' 1 Wt 242 lb 6.4 oz SpO2 97% BMI 31.98 kg/m?? Smoking Status Former BSA 2.38 m?? Review of Systems Constitutional: Positive for fatigue. Negative for chills and fever. Respiratory: Negative for cough, shortness of breath and wheezing. Cardiovascular: Positive for leg swelling. Negative for chest pain and palpitations. Gastrointestinal: Negative for abdominal pain, constipation, diarrhea, nausea and vomiting. Musculoskeletal: Positive for arthralgias, back pain and gait problem. Skin: Negative for rash. Psychiatric/Behavioral: Positive for sleep disturbance. Objective Physical Exam Constitutional: Comments: Appears uncomfortable, rubbing right thigh throughout visit HENT: Head: Normocephalic and atraumatic. Eyes: General: No scleral icterus. Cardiovascular: Rate and Rhythm: Normal rate and regular rhythm. Heart sounds: No murmur heard. Pulmonary: Effort: Pulmonary effort is normal. No respiratory distress. Breath sounds: Normal breath sounds. No wheezing, rhonchi or rales. Musculoskeletal: Right lower le+ Pitting Edema present. Left lower le+ Pitting Edema present. Comments: Bilateral lower legs with blisters, right > left, see photo of right leg Skin: General: Skin is warm and dry. Neurological: General: No focal deficit present. Mental Status: He is alert and oriented to person, place, and time. Psychiatric: Mood and Affect: Mood normal. Behavior: Behavior normal. Assessment/Plan Diagnoses and all orders for this visit: Acute deep vein thrombosis (DVT) of iliac vein of right lower extremity (HCC) - Rivaroxaban (Xarelto Starter Pack) 15 & 20 MG tablet therapy pack; 15 mg twice a day for 21 days, then 20 mg daily. - HYDROcodone-acetaminophen (Freeport) 5-325 MG tablet; Take 1 tablet by mouth every 6 (six) hours if needed for severe pain for up to 5 days Will have patient hold the ASA and start Xarelto as prescribed. Patient does have a Carmelina Filter in place. OARRS report generated and reviewed. Freeport sent in for pt. Advised of potential s/e including somnolence. He will come back in 2 weeks for recheck or sooner if needed, ER if concerns. Bladder wall thickening - ciprofloxacin (Cipro) 500 MG tablet; Take 1 tablet (500 mg) by mouth in the morning and 1 tablet (500 mg) before bedtime. Do all this for [address] in detail with pt. Advised him that a copy will be sent to Dr. Jurado. Start Cipro as prescribed. Stay hydrated. He will contact Dr. Jurado to set up a follow up appointment. He will try to come by the office later to provide urine sample. History of DVT (deep vein thrombosis) Xarelto as prescribed. 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 Localized edema Elevate when possible. Consider compression stockings. Continue Torsemide. Advised the swelling is likely aggravated by the current DVT. Did consult Dr. Shailesh Tello regarding treatment for the DVT. Follow up in about 2 weeks (around 03/10/2025) for Recheck. documented in this encounter Plan of Treatment Upcoming Encounters Date Type Department Care Team (Late st Contact Info) Description 03/24/2025 8:45 AM EDT Office Visit [facility] 112 [facility] 110 [place] [address] Nino Hammonds MD 112 [facility] 110 [place] [address] documented as of this encounter Visit Diagnoses Diagnosis Acute deep vein thrombosis (DVT) of iliac vein of right lower extremity (HCC)- Primary Bladder wall thickening Other specified disorder of bladder History of DVT (deep vein thrombosis) Localized edema Edema documented in this encounter Care Teams Psychology Professor Relationship Specialty Start Date End Date Nino Hammonds MD 112 [facility] 110 [place], [place] [id number] PCP - ACO Reach 11/29/22 Nino Hammonds MD 112 [facility] 110 [place], [place] [id number] PCP - General Internal Medicine 12/26/22 Peggy Wade, SHAY [address] [place] [address] Potato Grader Family Medicine 02/18/25 02/25/25 documented as of this encounter
--- OUTSIDE RECORDS SUMMARY | 2025-03-01 15:45 | XMS_ITS | Encounter Summary ---
Author Organization [facility] Address [address] [place] [address] Care Team Providers Care Zoning Administrator Name Role Phone Nino Hammonds MD Unavailable [phone] Nino Hammonds MD Primary Care Provider [phone] Peggy Wade Unavailable [phone] Encounter Details Date Type Department Care Team (Late st Contact Info) Description 02/23/2025 Telephone [facility] [place] [facility] [address] [facility] [facility] 110 [place] [address] Margoth Chance PA [address] [facility] 110 [place] [address] Social History Tobacco Use Types Packs/Day Years [...] LP N documented as of this encounter Miscellaneous Notes * Telephone Encounter - RAY Nieves - 02/24/2025 12:57 PM EDT Reviewed with pt today * Telephone Encounter - ANU COBB - 02/23/2025 2:[address] report in the chart. documented in this encounter Plan of Treatment Upcoming Encounters Date Type Department Care Team (Late st Contact Info) Description 03/24/2025 8:45 AM EDT Office Visit [facility] [place] [facility] [address] [facility] 110 [place] [address] Nino Hammonds MD [address] [facility] 110 [place] [address] documented as of this encounter Visit Diagnoses Not on filedocumented in this encounter Care Teams Zoning Administrator Relationship Specialty Start Date End Date Nino Hammonds MD [address] [facility] 110 [place] [address] PCP - ACO Reach 11/29/22 Nino Hammonds MD [address] [facility] 110 [place] [address] PCP - General Internal Medicine 12/26/22 Peggy Wade, SHAY [address] [place] [address] Spa Receptionist Family Medicine 02/18/25 02/25/25 documented as of this encounter
--- OUTSIDE RECORDS SUMMARY | 2025-03-01 15:45 | XMS_ITS | Encounter Summary ---
Author Organization [facility] Address [address] [place] [address] Care Team Providers Care Aerodynamics Teacher Name Role Phone Nino Hammonds MD Unavailable [phone] Nino Hammonds MD Primary Care Provider [phone] Encounter Details Date Type Department Care Team (Late Contact Info) Description 02/15/2025 Bamboo flowsheet [facility] [place] [facility] [address] [facility] 110 [place] [address] Nino Hammonds MD [address] [facility] 110 [place] [address] Social History Tobacco Use Types Packs/Day Years [...] Department Care Team (Late Contact Info) Description 03/24/2025 8:45 AM EDT Office Visit [facility] [place] [facility] [address] [facility] [address] [place] [address] Nino Hammonds MD [address] [facility] 110 [place] [address] documented as of this encounter Visit Diagnoses Not on filedocumented in this encounter Care Teams Aerodynamics Teacher Relationship Specialty Start Date End Date Nino Hammonds MD [address] [facility] 110 [place] [address] PCP - ACO Reach 11/29/22 Nino Hammonds MD [address] [facility] 110 [place] [address] PCP - General Internal Medicine 12/26/22 documented as of this encounter
--- OUTSIDE RECORDS SUMMARY | 2025-03-01 15:45 | XMS_ITS | Encounter Summary ---
Author Organization [facility] Address [address] [place] [address] Care Team Providers Care Hand Nailer Name Role Phone Nino Hammonds MD Unavailable [phone] Nino Hammonds MD Primary Care Provider [phone] Peggy Wade Unavailable [phone] Encounter Details Date Type Department Care Team (Late st Contact Info) Description 02/25/2025 Patient Outreach [facility] [address] [facility] [place] [address] Peggy Wade LSW [address] [place] [address] Social History Tobacco Use Types Packs/Day Years [...] on file documented as of this encounter Progress Notes * SHAY Fofana - 02/25/2025 12:09 PM EDT <February 25, 2025, 12:10 - SHAY Fofana> Pt identified by payor for [facility] services. Chart reviewed. Called and spoke to pt. He saw Margoth yesterday, found to have DVT and bladder wall thickening. He has picked up prescriptions and started xarelto today. Xarelto starter pack was $190 after insurance. Advised if he needs to continue this med manager terminal we may be able to explore assistance programs. Pt states he still needs to schedule with Dr. Jurado. CREDIT DEPARTMENT MANAGER educates on CCM services and offers to have nurse check-in with him to monitor symptoms. Pt declines. Enc pt to call office if needs arise. Noted that Margoth's note states pt should follow up in 2 weeks but next appt is 03/24. Will clarify if pt needs sooner appt. * RAY Nieves - 02/25/2025 12:09 PM EDT As long as he is doing better, he can wait until then. Will need to be rechecked sooner if he has any concerns. Thank you. documented in this encounter Plan of Treatment Upcoming Encounters Date Type Department Care Team (Late st Contact Info) Description 03/24/2025 8:45 AM EDT [facility] [place] [facility] [address] [facility] 110 [place] [address] Nino Hammonds MD [address] [facility] 110 [place] [address] documented as of this encounter Visit Diagnoses Diagnosis Back pain, unspecified back location, unspecified back pain laterality, unspecified chronicity- Primary Stage 3b chronic kidney disease ([facility]) documented in this encounter Care Teams Hand Nailer Relationship Specialty Start Date End Date Nino Hammonds MD [address] [facility] [address] [place] [address] PCP - ACO Reach 11/29/22 Nino Hammonds MD [address] [facility] [address] [place] [address] PCP - General Internal Medicine 12/26/22 Peggy Wade LSW [address] [place] [address] Global Compensation Director Family Medicine 02/18/25 02/25/25 documented as of this encounter
--- OUTSIDE RECORDS SUMMARY | 2025-03-01 15:45 | XMS_ITS | Encounter Summary ---
Author Organization [facility] Address [address] [place] [address] Care Team Providers Care Director Of Infection Prevention Name Role Phone Nino Hammonds MD Unavailable [phone] Nino Hammonds MD Primary Care Provider [phone] Peggy Wade MOLECULAR SPECTROSCOPIST Unavailable [phone] Encounter Details Date Type Department Care Team (Late Contact Info) Description 01/13/2023 Abstract [facility] [place] [facility] [address] [facility] 110 [place] [address] Nino Hammonds MD [address] [facility] 110 [place] [address] Social History Tobacco Use Types Packs/Day Years [...] 8:45 AM EDT Office Visit [facility] [place] [facility] [address] [facility] [address] [place] [address] Nino Hammonds MD [address] [facility] 110 [place] [address] documented as of this encounter Visit Diagnoses Not on filedocumented in this encounter Care Teams Director Of Infection Prevention Relationship Specialty Start Date End Date Nino Hammonds MD [address] [facility] 110 [place] [address] PCP - ACO Reach 11/29/22 Nino Hammonds MD [address] [facility] 110 [place] [address] PCP - General Internal Medicine 12/26/22 Peggy Wade, SHAY [address] [place] [address] School Laboratory Technician Family Medicine 02/18/25 02/25/25 documented as of this encounter
--- OUTSIDE RECORDS SUMMARY | 2025-03-01 15:45 | XMS_ITS ---
Author Organization [facility] Address [address] [place] [address] Care Team Providers Care Transition Program Manager Name Role Phone Nino Hammonds MD Unavailable [phone] Nino Hammonds MD Primary Care Provider Chronic Care Management (CCM) Status:Declined (Declined) Start date:02/18/2025 Enrollment reason:Identified by Health Plan End date:02/25/2025 Decline reason:Patient declined Overview Please assess for Care Management needs. Continued Care and Services Coordination
--- OUTSIDE RECORDS SUMMARY | 2025-03-01 15:45 | XMS_ITS | Encounter Summary ---
Author Organization [facility] Address [address] [place] [address] Care Team Providers Care Open Soaper Tender Name Role Phone Nino Hammonds MD Unavailable [phone] Nino Hammonds MD Primary Care Provider [phone] Peggy Wade Unavailable [phone] Encounter Details Date Type Department Care Team (Late st Contact Info) Description 12/31/2022 Orders Only [facility] [place] [facility] [address] [facility] [address] [place] [address] Clifton Jurado MD [address] [place] [address] Social History Tobacco Use Types Packs/Day Years [...] pleasure in doing things Not at all 01/02/2023 9:00 AM MARGIET Denita Maxwell LP N Feeling down, depressed, or hopeless Not at all 01/02/2023 9:00 AM EDT Denita Maxwell LP N Patient Health Questionnaire -2 Score 0 01/02/2023 9:00 AM EDT Denita Maxwell LP N * Question Answer Date of Assessment Author Trouble falling or staying asleep, or sleeping too much Not at all 01/02/2023 9:00 AM EDT Denita Maxwell LPN documented as of this encounter Plan of Treatment Upcoming Encounters Date Type Department Care Team (Late st Contact Info) Description 03/24/2025 8:45 AM EDT Office Visit [facility] [place] [facility] [address] [email or web address] [address] [place] [address] Nino Hammonds MD [address] [facility] 110 [place] [address] documented as of this encounter Procedures Procedure Name Priority Date/Time Associated Diagnosis Comments CT ABDOMEN & PELVIS WO Routine 12/29/2022 10:35 AM EDT documented in this encounter Results * CT ABDOMEN & PELVIS WO (12/29/2022 10:35 AM EDT) Anatomical Region Laterality Modality Radiographic Verna ging us Clifton Jurado MD IMG XR PROCEDURES Final Resu lt documented in this encounter Visit Diagnoses Not on filedocumented in this encounter Care Teams Open Soaper Tender Relationship Specialty Start Date End Date Nino Hammonds MD [address] [facility] [address] [place] [address] PCP - ACO Reach 11/29/22 Nino Hammonds MD [address] [facility] [address] [place] [address] PCP - General Internal Medicine 12/26/22 Peggy Wade, SHAY [address] [place] [address] Parachute Taper Family Medicine 02/18/25 02/25/25 documented as of this encounter
--- OUTSIDE RECORDS SUMMARY | 2025-03-01 15:45 | XMS_ITS | Encounter Summary ---
Author Organization [facility] Address [address] [place] [address] Care Team Providers Care Quality Assurance Consultant Name Role Phone Nino Hammonds MD Unavailable [phone] Nino Hammonds MD Primary Care Provider [phone] Peggy Wade SLURRY MIXER Unavailable [phone] Encounter Details Date Type Department Care Team (Late st Contact Info) Description 10/26/2024 Abstract [facility] [place] [facility] [address] [facility] 110 [place] [address] Nino Hammonds MD 112 [facility] 110 [place] [address] Social History Tobacco Use Types Packs/Day Years [...] -2 Score 0 10/26/2024 8:00 AM EDT Denita Maxwell LP N documented as of this encounter Plan of Treatment Upcoming Encounters Date Type Department Care Team (Late st Contact Info) Description 03/24/2025 8:45 AM EDT Office Visit [facility] [place] [facility]ago[facility] [address] [facility] 110 [place] [address] Nino Hammonds MD [address] [facility] 110 [place] [address] documented as of this encounter Visit Diagnoses Not on filedocumented in this encounter Care Teams Quality Assurance Consultant Relationship Specialty Start Date End Date Nino Hammonds MD [address] [facility] [address] [place] [address] PCP - ACO Reach 11/29/22 Nino Hammonds MD [address] [facility] [address] [place] [address] PCP - General Internal Medicine 12/26/22 Peggy Wade, SHAY [address] [place] [address] Crib Clerk Family Medicine 02/18/25 02/25/25 documented as of this encounter
--- OUTSIDE RECORDS SUMMARY | 2025-03-01 15:45 | XMS_ITS | Encounter Summary ---
Author Organization [facility] Address [address] [place] [address] Care Team Providers Care Collection Development Librarian Name Role Phone Nino Hammonds MD Unavailable [phone] Nino Hammonds MD Primary Care Provider [phone] Peggy Wade CANVAS MARKER Unavailable [phone] Encounter Details Date Type Department Care Team (Latest Contact Info) Description 02/24/2025 Travel Social History Tobacco Use Types Packs/Day [...] 8:45 AM EDT Office Visit [facility] [place] [facility] [address] [facility] [address] [place] [address] Nino Hammonds MD [address] [facility] 110 [place] [address] documented as of this encounter Visit Diagnoses Not on filedocumented in this encounter Care Teams Collection Development Librarian Relationship Specialty Start Date End Date Nino Hammonds MD [address] [facility] 110 [place] [address] PCP - ACO Reach 11/29/22 Nino Hammonds MD [address] [facility] 110 [place] [address] PCP - General Internal Medicine 12/26/22 Peggy Wade, CANVAS MARKER [address] [place] [address] Voltage Inspector Family Medicine 02/18/25 02/25/25 documented as of this encounter
--- OUTSIDE RECORDS SUMMARY | 2025-03-01 15:45 | XMS_ITS | Encounter Summary ---
Author Organization [facility] Address [address] [place] [address] Care Team Providers Care Grounding Engineer Name Role Phone Nino Hammonds MD Unavailable [phone] Nino Hammonds MD Primary Care Provider [phone] Peggy Wade SHREDDING MACHINE TENDER Unavailable [phone] Encounter Details Date Type Department Care Team (Late Contact Info) Description 02/24/2025 Bamboo flowsheet [facility] [place] [facility] [address] [facility] 110 [place] [address] Margoth Chance PA [address] [facility] 110 [place] [address] Social History Tobacco Use Types Packs/Day Years [...] [place] Zaragoza [address] [facility] [address] [place] [address] Nino Hammonds MD [address] [facility] 110 [place], [place] [address] documented as of this encounter Visit Diagnoses Not on filedocumented in this encounter Care Teams Grounding Engineer Relationship Specialty Start Date End Date Nino Hammonds MD [address] [facility] 110 [place], [place] [address] PCP - ACO Reach 11/29/22 Nino Hammonds MD [address] [facility] 110 [place], [place] [address] PCP - General Internal Medicine 12/26/22 Peggy Wade, SHAY [address] [place] [address] Business Continuity Manager Family Medicine 02/18/25 02/25/25 documented as of this encounter
--- OUTSIDE RECORDS SUMMARY | 2025-03-01 15:45 | XMS_ITS | Encounter Summary ---
Author Organization [facility] Address [address] [place] [address] Care Team Providers Care News Producer Name Role Phone Nino Hammonds MD Unavailable [phone] Nino Hammonds MD Primary Care Provider [phone] Peggy Wade Unavailable [phone] Reason for Visit * Reason Onset Date Comments Lab Orders 02/24/2025 Encounter Details Date Type Department Care Team (Late Contact Info) Description 02/24/2025 Telephone [facility] [address] [facility] [address] [place] [address] Margoth Chance PA 112 [facility] [address] [place] [address] Lab Orders Social History Tobacco Use Types Packs/Day Years [...] Not at all 02/24/2025 9:26 AM EDT Alisia, CASSIE Oakes N Feeling down, depressed, or hopeless Not at all 02/24/2025 9:26 AM EDT Violette Crump LP N Patient Health Questionnaire -2 Score 0 02/24/2025 9:26 AM EDT Violette Crump LP N documented as of this encounter Miscellaneous Notes * Telephone Encounter - Denita Maxwell LPN - 02/24/2025 10:34 AM EDT Orders placed documented in this encounter Plan of Treatment Upcoming Encounters Date Type Department Care Team (Late st Contact Info) Description 03/24/2025 8:45 AM EDT Office Visit [facility] [address] [facility] [address] [place] [id number] Nino Hammonds MD [address] [facility] [address] [place] [address] documented as of this encounter Procedures Procedure Name Priority Date/Time Associated Diagnosis Comments MICROALBUMIN / CREATININE URINE RATIO Routine 02/24/2025 10:38 AM EDT Type 2 diabetes mellitus with diabetic neuropathy, with long-term current use of insulin (HCC) Stage 3b chronic kidney disease ([facility]-HCC) URINALYSIS REFLEX Routine 02/24/2025 10: 38 AM EDT 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 2 diabetes mellitus with diabetic neuropathy, with long-term current use of insulin (HCC) Stage 3b chronic kidney disease (CMS-HCC) Bladder wall thickening documented in this encounter Results * Urinalysis with reflex microscopic (clean catch) (02/24/2025 10:38 AM EDT) COLOR YELLOW YELLOW [facility] APPEARANCE CLEAR CLEAR [facility] SPECIFIC GRAVITY 1.009 1.001 - 1.035 [facility] PH 5.5 5.0 - 8.0 [facility] GLUCOSE NEGATIVE NEGATIVE [facility] BILIRUBIN NEGATIVE NEGATIVE [facility] KETONES NEGATIVE NEGATIVE [facility] OCCULT BLOOD NEGATIVE NEGATIVE [facility] PROTEIN NEGATIVE NEGATIVE [facility] NITRITE NEGATIVE NEGATIVE [facility] LEUKOCYTE ESTERASE NEGATIVE NEGATIVE [facility] Urine Urine specimen obtained by clean catch procedure / Unknown 02/24/2025 10:38 AM EDT 02/24/2025 10:38 AM EDT Narrative Resulting Agency Comment Performing Organization Information Site ID: QPT Name: [email or web address] Address: [address] [place] [address], [address] [place] [phone] Director: Nathanael Muñoz MD us Margoth BE[facility] LAB URINE ORDERABLES Final Res ult Performing Organization Address [facility] de Phone Number [facility] * (ABNORMAL) Microalbumin / creatinine, urine ratio (02/24/2025 10:38 AM EDT) CREATININE, RANDOM URINE 36 20 - 320 mg/dL [facility] ALBUMIN, URINE 5.1 See Note: mg/dL [facility] Comment: Reference Range: Reference Range Not established ALBUMIN/CREATININE RATIO, RANDOM URINE 142(H) <30 mg/g creat [facility] Comment: The ADA [...] obtained by clean catch procedure / Unknown 02/24/2025 10:38 AM EDT 02/24/2025 10:38 AM EDT Narrative Resulting Agency Comment Performing Organization Information Site ID: QPT Name: [email or web address] Address: [address] [place] [address], [address] [place] [phone] Director: Nathanael Muñoz MD us Margoth [facility] LAB URINE ORDERABLES Final Res ult Performing Organization Address [facility] Co de Phone Number [facility] documented in this encounter Visit Diagnoses Diagnosis 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 2 diabetes mellitus with diabetic neuropathy, with long-term current use of insulin (HCC) Stage 3b chronic kidney disease (CMS-HCC) Bladder wall thickening Other specified disorder of bladder documented in this encounter Care Teams News Producer Relationship Specialty Start Date End Date Nino Hammonds MD [address] [place] [address] PCP - ACO Reach 11/29/22 Nino Hammonds MD [address] [facility] [address] [place] [address] PCP - General Internal Medicine 12/26/22 Peggy Wade, SHAY [address] [place] [address] Exchange Operator Family Medicine 02/18/25 02/25/25 documented as of this encounter
--- OUTSIDE RECORDS SUMMARY | 2025-03-01 15:45 | XMS_ITS | Encounter Summary ---
Author Organization [facility] Address [address] [place] [address] Care Team Providers Care Opening Machine Cleaner Name Role Phone Nino Hammonds MD Unavailable [phone] Nino Hammonds MD Primary Care Provider [phone] Peggy Wade BAR PILOT Unavailable [phone] Encounter Details Date Type Department Care Team (Latest Contact Info) Description 02/22/2025 Travel Social History Tobacco Use Types Packs/Day [...] [place] Zaragoza [address] [facility] [address] [place] [address] Nino Hammonds MD [address] [facility] [address] [place], [place] [id number] documented as of this encounter Visit Diagnoses Not on filedocumented in this encounter Care Teams Opening Machine Cleaner Relationship Specialty Start Date End Date Nino Hammonds MD [address] [place], [place] [id number] PCP - ACO Reach 11/29/22 Nino Hammonds MD [address] [facility] 110 [place] [address] PCP - General Internal Medicine 12/26/22 Peggy Wade, BAR PILOT [address] [place] [address] Produce Clerk Family Medicine 02/18/25 02/25/25 documented as of this encounter
--- OUTSIDE RECORDS SUMMARY | 2025-03-01 15:45 | XMS_ITS | Encounter Summary ---
Author Organization [facility] Address [address] [place] [address] Care Team Providers Care Inside Outside Sales Representative Name Role Phone Nino Hammonds MD Unavailable [phone] Nino Hammonds MD Primary Care Provider [phone] Peggy Wade LINING STRAP CLOSER Unavailable [phone] Encounter Details Date Type Department Care Team (Late Contact Info) Description 02/25/2024 Abstract [facility] [place] Zaragoza [address] [facility] [address] [place] [phone] Nino Hammonds MD 112 [facility] [address] [place] [address] Social History Tobacco Use Types Packs/Day Years [...] Office Visit [facility] [place] Zaragoza [address] [facility] [address] [place] [phone] Nino Hammonds MD 112 [facility] [address] [place] [address] documented as of this encounter Visit Diagnoses Not on filedocumented in this encounter Care Teams Inside Outside Sales Representative Relationship Specialty Start Date End Date Nino Hammonds MD [address] [facility] [address] [place] [address] PCP - ACO Reach 11/29/22 Nino Hammonds MD [address] [facility] [address] [place] [address] PCP - General Internal Medicine 12/26/22 Peggy Wade, SHAY [address] [place] [address] Industrial Engineering Technologist Family Medicine 02/18/25 02/25/25 documented as of this encounter
--- OUTSIDE RECORDS SUMMARY | 2025-03-01 15:45 | XMS_ITS | Clinical Summary ---
Author Organization [facility] Address [address] [place] [address] Care Team Providers Care Bolt Maker Name Role Phone Nino Hammonds MD Unavailable [phone] Nino Hammonds MD Primary Care Provider [phone] Allergies No known active allergies Medications Lancet Devices (Autolet) lancing device 1 each by Other route in the morning and 1 each at noon and 1 each in the evening and 1 each before bedtime. Active Lancets (OneTouch Delica Plus [id number]) [facility] [place] [place] USE TWICE DAILY FOR FINGER STICK E11.65 022 Active lisinopril 5 MG tabletIndication s:Mixed hyperlipidemia TAKE 1 TABLET BY MOUTH EVERY DAY 100 tablet 4 024 Active lovastatin (Mevacor) 20 MG tabletIndication [...] morning. Inject before meals. 15 mL 11 06/12/2 025 Active insulin pen needle (BD Pen Needle Mery 2nd Gen) 32G x 4 mm miscIndications: Type 2 diabetes mellitus with diabetic neuropathy, with long-term current use of insulin (HCC) USE TWICE A DAY DIRECTED 200 each 3 Active OneTouch Ultra test strip 1 each by Other route in the morning and 1 each in the evening and 1 each before bedtime. Active torsemide (Demadex) 20 MG tabletIndication s:Localized edema TAKE 1 TABLET (20 MG) BY MOUTH DAILY FOR 15 DAYS 90 tablet 1 025 2024 Active Rivaroxaban (Xarelto Starter Pack) 15 & 20 MG tablet therapy packIndications: Acute deep vein thrombosis (DVT) of iliac vein of right lower extremity (HCC) 15 mg twice a day for 21 days, then 20 mg daily. 51 each Active ciprofloxacin (Cipro) 500 MG tabletIndication s:Bladder wall thickening Take 1 tablet (500 mg) by mouth in the morning and 1 tablet (500 mg) before bedtime. Do all this for 7 days. 14 tablet 025 2024 Active HYDROcodone-acet aminophen (Shafer) 5-325 MG tabletIndication s:Acute deep vein thrombosis (DVT) of iliac vein of right lower extremity (HCC) Take 1 tablet by mouth every 6 (six) hours if needed for severe pain for up to 5 days 20 tablet 025 2024 Active terazosin (Hytrin) 5 MG capsuleIndicatio ns:BPH with urinary obstruction TAKE 1 CAPSULE BY MOUTH EVERY DAY 100 capsule 3 Active aspirin 81 MG EC tablet Take 81 mg by mouth Daily 2024 Discontinued terazosin (Hytrin) 5 MG capsuleIndicatio ns:BPH with urinary obstruction TAKE 1 CAPSULE BY MOUTH EVERY DAY 100 capsule 3 024 2024 Discontinued furosemide (Lasix) 20 MG tabletIndication s:Localized edema Take 1 tablet (20 mg) by mouth Daily for 7 days 7 tablet 025 2024 Discontinued(T herapy completed) tiZANidine (Zanaflex) 4 MG tabletIndication s:Acute bilateral low back pain without sciatica Take 1 tablet (4 mg) by mouth every 6 (six) hours if needed for muscle spasms for up to 10 days 30 tablet 025 2024 Discontinued(I neffective) torsemide (Demadex) 20 MG tabletIndication s:Localized edema Take 1 tablet (20 mg) by mouth Daily for 15 days 15 tablet 025 2024 Discontinued Active Problems Problem Noted Date Diagnosed Date Localized edema 02/24/2025 Obesity, Class I, BMI 30-34.9 02/24/2024 Elevated PSA 03/04/2023 Protein in urine 03/04/2023 Pulmonary embolism 03/04/2023 History of colon polyps 03/04/2023 BPH with obstruction/lower urinary tract symptom s 12/29/[address] [place] [address] 12/29/2022 Hypercoagulable state ([facility]) 12/29/2022 Other obstructive and reflux uropathy 12/29/2022 Stage 3b chronic kidney disease 12/29/2022 Tubulovillous adenoma of colon 12/29/2022 Type 2 diabetes mellitus wit h diabetic neuropathy, with long-term current use of insulin 12/29/2022 Mixed hyperlipidemia 10/31/2018 Diabetic peripheral neuropat hy associated with type 2 diabetes mellitus 10/31/2018 Benign neoplasm of colon 10/31/2018 History of primary malignant neoplasm of kidney 10/31/2018 manager supplier current use of anticoagulant therapy 0 10/31/2018 [...] Hyperglycemia due to type 2 diabetes mellitus 10/31/19 19 07/31/2023 Encounters Date Type Department Care Team Description 02/28/2025 [facility] [address] [facility] [address] [place] [address] Nino Hammonds MD BPH with urinary obstruction 02/25/2025 Patient Outreach [facility] [address] [place] [phone] Peggy Wade, PATIENT CASE COORDINATOR 02/24/2025 9:30 AM EDT Office Visit [facility] [place] [facility] [address] [facility] [address] [place] [address] Margoth Chance, PA Acute deep vein thrombosis (DVT) of iliac vein of right lower extremity (HCC) (Primary Dx); Bladder wall thickening; History of DVT (deep vein thrombosis); Localized edema 02/24/2025 Orders Only [facility] [place] [facility] [address] [facility] [address] [place] [address] Denita Maxwell LPN Acute bilateral low back pain without sciatica; Localized edema; History of primary malignant neoplasm of kidney 02/24/2025 Telephone [facility] [place] [facility] [address] [facility] [address] [place] [address] Margoth Chance PA Lab Orders 02/24/2025 Telephone [facility] [place] [facility] [address] [facility] [address] [place] [address] Nino Hammonds MD 02/24/2025 Bamboo flowsheet [facility] [address] [facility] [address] [place] [address] Margoth Chance PA 02/24/2025 Travel 02/23/2025 Telephone [facility] [address] [facility] [address] [place] [address] Margoth Chance PA 02/22/2025 10:15 AM EDT Ancillary Procedure [facility] [place] [facility] [address] [place] [phone] Acute bilateral low back pain without sciatica; History of primary malignant neoplasm of kidney; Chronic kidney disease, stage 3b (CMS-HCC) 02/22/2025 Travel 02/22/2025 [facility] [place] [facility] [address] [place] [address] [place] [address] Nino Hammonds MD Localized edema 02/15/2025 4:30 PM EDT [facility] [place] [facility] [address] [place] [address] [place] [address] Nino Hammonds MD Acute bilateral low back pain without sciatica (Primary Dx); History of primary malignant neoplasm of kidney; Localized edema; Chronic kidney disease, stage 3b (CMS-HCC) 02/15/2025 Bamboo flowsheet [facility] [place] [facility] [address] [place] [address] [place] [address] Nino Hammonds MD 02/15/2025 Travel 02/09/2025 Clinisync Result Encounter [facility] External Department Unsolicited Nino Hammonds MD 02/09/2025 Telephone [facility] [address] [facility] [address] [place] [address] Nino Hammonds MD 02/08/2025 3:45 PM EDT Office Visit [facility] [place] [facility] [address] [place] [address] [place] [address] Nino Hammonds MD Acute bilateral low back pain without sciatica (Primary Dx); Type 2 diabetes mellitus with chronic kidney disease, with long-term current use of insulin, unspecified CKD stage (HCC); Localized edema; History of primary malignant neoplasm of kidney 02/08/2025 Bamboo flowsheet [facility] [place] [facility] [address] [place] [address] [place] [address] Nino Hammonds MD 02/08/2025 Travel 01/11/2025 11:00 AM EDT Office Visit [facility] [place] [facility] [address] [place] [address] [place] [address] Nino Hammonds MD Acute bronchiolitis due to unspecified organism (Primary Dx) 01/11/2025 Bamboo flowsheet [facility] [place] [facility] [address] [facility] [address] [place] [address] Nino Hammonds MD 01/11/2025 Travel 01/05/2025 [facility] [address] [facility] [address] [place] [address] Nino Hammonds MD 01/05/2025 Abstract [place] [address] [place] [address] Liz Pearson HEALTH SUPPORT SPECIALIST 01/04/2025 Patient Outreach [place] [id number] [address] Liz Pearson [facility] 01/04/2025 Abstract [facility] [place] [facility] [address] [facility] [address] [place] [address] Nino Hammonds MD 12/24/2024 [facility] [address] [facility] [address] [place] [address] Nino Hammonds MD Type 2 diabetes mellitus with diabetic neuropathy, with long-term current use of insulin (HCC) 12/17/2024 Telephone [facility] [address] [facility] [address] [place] [address] Nino Hammonds MD 12/17/2024 [facility] [address] [facility] [address] [place] [address] Nino Hammonds MD Benign prostatic hyperplasia with lower urinary tract symptoms, symptom details unspecified 12/09/2024 Refill [facility] [address] [facility] [address] [place] [address] Nino Hammonds MD Uncontrolled type 2 diabetes [...] Mass Index 31.98 02/24/2025 9:36 AM EDT Plan of Treatment Upcoming Encounters Date Type Department Care Team (Late st Contact Info) Description 03/24/2025 8:45 AM EDT Office Visit [facility] [place] [facility] [address] [facility] 110 [place] [address] Nino Hammonds MD [address] [facility] [address] [place] [address] Health Maintenance Due Date Last Done Comments CT Colonography 1955 FIT-DNA 1955 FIT 1955 FOBT 1955 Sigmoidoscopy 1955 Pneumococcal Vaccine: 65+ Ye ars (1 of 2 - PCV) 1973 Influenza Vaccine (#1) 2025 , 05/04/2022, 05/31/2021, Additional history exists Diabetes: Hemoglobin A1C 05/11/2025 025, 10/26/2024, 06/25/2024, Additional history exists Medicare Annual Wellness (AWV) 10/26/2025 0 10/26/2024, 07/31/2023, 01/02/2023, Additional history exists Diabetes: Retinopathy Screening 12/30/2025 12/31/2023, 11/15/2021, 11/19/2019, Additional history exists Diabetes: Urine Protein Screening 02/24/2026 025, 02/14/2024 Colonoscopy 03/13/2033 03/13/2023, 0912/2022, 03/13/2023, Additional history exists Colorectal Cancer Screening 03/13/2033 Procedures Procedure Name Priority Date/Time Associated Diagnosis Comments URINALYSIS REFLEX Routine 02/24/2025 10: 38 AM EDT 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 2 diabetes mellitus with diabetic neuropathy, with long-term current use of insulin (HCC) Stage 3b chronic kidney disease (CMS-HCC) Bladder wall thickening MICROALBUMIN / CREATININE URINE RATIO Routine 02/24/2025 10:38 AM EDT Type 2 diabetes mellitus with diabetic neuropathy, with long-term current use of insulin (HCC) Stage 3b chronic kidney disease (CMS-HCC) CT ABDOMEN PELVIS WO IV CONTRAST Routine 02/22/2025 10:12 AM EDT Acute bilateral low back pain without sciatica History of primary malignant neoplasm of kidney Chronic kidney disease, stage 3b (CMS-HCC) XR LUMBAR SPINE 2 OR 3V 02/09/2025 3:09 PM EDT COMPREHENSIVE METABOLIC PANEL Routine 02/09/2025 2:00 PM EDT Acute bilateral low back pain without sciatica Localized edema History of primary malignant neoplasm of kidney CBC (INCLUDES DIFF/PLT) Routine 02/09/2025 2:00 PM EDT Acute bilateral low back pain without sciatica Localized edema History of primary malignant neoplasm of kidney POCT GLYCOSYLATED HEMOGLOBIN (HGB A1C) Routine 02/08/2025 4:08 PM EDT Type 2 diabetes mellitus with chronic kidney disease, with long-term current use of insulin, unspecified CKD stage (HCC) DIABETIC RETINOPATHY SCREENING - OU - BOTH EYES Routine 12/31/2023 COLONOSCOPY DIAGNOSTIC Routine 03/13/2023 from Last 3 Months or Most Recently Relevant to Health Maintenance Results * (ABNORMAL) Microalbumin / creatinine, urine ratio [...] Performing Organization Information Site ID: QPT Name: [facility] Address: [address] [place] [address], [address] [place] [phone] Director: Nathanael Muñoz MD us Margoth BELL LAB URINE ORDERABLES Final Res ult [facility] * Urinalysis with reflex microscopic (clean catch) [...] Performing Organization Information Site ID: QPT Name: [facility] Address: [address] [place] [address], [address] [place] [address] Director: Nathanael Muñoz MD us Margoth BELL LAB URINE ORDERABLES Final Res ult [facility] * CT abdomen pelvis wo IV contrast [...] diverticulitis. ELECTRONICALLY SIGNED BY: Braulio Monroe DO us Nino Hammonds MD IMG CT PROCEDURES Final Result * XR LUMBAR SPINE 2 OR 3V (02/09/2025 3:09 PM EDT) Anatomical Region Laterality Modality Radiographic Verna ging 02/09/2025 3:09 PM EDT Narrative 02/09/2025 3:11 [place] [address] XRay Report Signed Patient: TRACY CARRILLO MR#: [id number] : 1955 Acct:[id number] Age/Sex: 69 / M ADM Date: 02/09/25 Loc: RAD Attending Dr: NINO HAMMONDS Ordering Physician: NINO HAMMONDS Date of Service: 02/09/25 Procedure(s): XR lumbar spine 2-3V Accession Number(s): [id number] cc: NINO HAMMONDS [place] [id number] Patient Name: TRACY CARRILLO MRN: [id number] date: 1955 Sex: M Assigned Patient [facility]: [facility] Current Patient Location: [facility] Accession/Order Number: [id number] Exam Date: 02/09/2025 15:08 Report Date: 02/09/2025 15:09 At the request of: NINO HAMMONDS Procedure: XR lumbar spine 2-3V LUMBAR SPINE - 2 views CLINICAL HISTORY: Acute Bilateral Low Back Pain, History Kidney Neoplasm COMPARISON: None FINDINGS: Vertebral body and disc space heights appear maintained. Mild endplate and facet joint degenerative changes. SI joints demonstrate degenerative change. IVC filter is in place. XR/XR lumbar spine 2-3V IMPRESSION: DEGENERATIVE CHANGES INVOLVING THE LUMBAR SPINE WITHOUT SIGNIFICANT DISC HEIGHT LOSS. Impression dictated by: Aamir Chu Jr., D.O. 02/09/2025 3:09 PM Dictation Location: [place] [address] Electronically authenticated by: [id number] Y Date: 02/09/2025 15:09 Dictated By: Aamir Chu M.D. Signed By: 02/09/25 1511 DD/ 1509 TD/TT: Teacher Private: Procedure Note Radiology, Radiologist, MD - 02/09/2025 [place] [address] XRay Report Signed Patient: TRACY CARRILLO LMR#: [id number] : 1955cct:[id number] Age/Sex: 69 / MADM Date: 02/09/25 Loc: RAD Attending Dr: NINO HAMMONDS Ordering Physician: NINO HAMMONDS Date of Service: 02/09/25 Procedure(s): XR lumbar spine 2-3V Accession Number(s): [id number] cc: NINO HAMMONDS [place] [address] Patient Name: TRACY CARRILLO MRN: [facility]:[id number] date: 1955 Sex: M Assigned Patient Location: [facility] Current Patient Location: [facility] Accession/Order Number: [id number] Exam Date: 02/09/2025 15:08 Report Date: 02/09/2025 15:09 At the request of: NINO HAMMONDS Procedure: XR lumbar spine 2-3V LUMBAR SPINE - 2 views CLINICAL HISTORY: Acute Bilateral Low Back Pain, History Kidney Neoplasm COMPARISON: None FINDINGS: Vertebral body and disc space heights appear maintained. Mild endplate and facet joint degenerative changes. SI joints demonstrate degenerative change. IVC filter is in place. XR/XR lumbar spine 2-3V IMPRESSION: DEGENERATIVE CHANGES INVOLVING THE LUMBAR SPINE WITHOUT SIGNIFICANT DISC HEIGHT LOSS. Impression dictated by: Aamir Chu Jr., D.O. 02/09/2025 3:09 PM Dictation Location: [place] [address] Electronically authenticated by: [id number] Y Date: :09 Dictated By: Aamir Chu M.D. Signed By:02/09/25 1511 DD/ 1509 TD/TT: Teacher Private: Nino Hammonds MD IMG XR PROCEDURES Final Result * (ABNORMAL) CBC and differential (02/09/2025 2:00 PM EDT) WHITE BLOOD CELL COUNT 10.5 3.8 - 10.8 Thousand/u L [facility] RED BLOOD CELL COUNT 3.80(L) 4.20 - 5.80 Million/uL [facility] HEMOGLOBIN 11.3(L) 13.2 - 17.1 g/dL [facility] HEMATOCRIT 35.6(L) 38.5 - 50.0 % [facility] MCV 93.7 80.0 - 100.0 fL [facility] MCH 29.7 27.0 - 33.0 pg [facility] MCHC 31.7(L) 32.0 - 36.0 g/dL [facility] Comment: For adults, a slight decrease in the calculated MCHC value (in the range of 30 to 32 g/dL) is most likely not clinically significant; however, it should be interpreted with caution in correlation with other red cell parameters and the patient's clinical condition. RDW 14.2 11.0 - 15.0 % [facility] PLATELET COUNT 139(L) 140 - 400 Thousand/u L [facility] MPV 10.6 7.5 - 12.5 fL [facility] ABSOLUTE NEUTROPHILS 7,970(H) 1,500 - 7,800 cells/uL [facility] ABSOLUTE LYMPHOCYTES 1,502 850 - 3,900 cells/uL [facility] ABSOLUTE MONOCYTES 893 200 - 950 cells/uL [facility] ABSOLUTE EOSINOPHILS 105 15 - 500 cells/uL [facility] ABSOLUTE BASOPHILS 32 0 - 200 cells/uL [facility] NEUTROPHILS 75.9 % [facility] LYMPHOCYTES 14.3 % [facility] MONOCYTES 8.5 % [facility] EOSINOPHILS 1.0 % [facility] BASOPHILS 0.3 % [facility] Blood Venous blood specimen / Unknown 02/09/2025 2:00 PM EDT 02/09/2025 2:00 PM EDT Narrative Resulting Agency Comment Performing Organization Information Site ID: QPT Name: [facility] Address: [address], [address] [place] [address] Director: Nathanael Muñoz MD us Nino Hammonds MD LAB BLOOD ORDERABLES Final Res ult [facility] * (ABNORMAL) Comprehensive metabolic panel (02/09/2025 2:00 PM EDT) Glucose 166(H) 65 - 99 mg/dL [facility] Comment: Fasting reference interval For someone without known diabetes, a glucose value >125 mg/dL indicates that they may have diabetes and this should be confirmed with a follow-up test. BUN 40(H) 7 - 25 mg/dL [facility] Creatinine 2.17(H) 0.70 - 1.28 mg/dL [facility] EGFR 32(L) > OR = 60 mL/min/1.7 3m2 [facility] BUN/CREATININE RATIO 18 6 - 22 (calc) [facility] Sodium 138 135 - 146 mmol/L [facility] Potassium, Bld 5.0 3.5 - 5.3 mmol/L [facility] Chloride 106 98 - 110 mmol/L [facility] Carbon Dioxide 25 20 - 32 mmol/L [facility] Calcium 9.3 8.6 - 10.3 mg/dL [facility] PROTEIN, TOTAL 7.3 6.1 - 8.1 g/dL [facility] ALBUMIN 4.5 3.6 - 5.1 g/dL [facility] GLOBULIN 2.8 1.9 - 3.7 g/dL (calc) [facility] ALBUMIN/GLOBULIN RATIO 1.6 1.0 - 2.5 (calc) [facility] BILIRUBIN, TOTAL 0.6 0.2 - 1.2 mg/dL [facility] ALKALINE PHOSPHATASE 51 35 - 144 U/L [facility] AST 18 10 - 35 U/L [facility] ALT 15 9 - 46 U/L [facility] Blood Venous blood specimen / Unknown 02/09/2025 2:00 PM EDT 02/09/2025 2:00 PM EDT Narrative Resulting Agency Comment Performing Organization Information Site ID: QPT Name: [facility] Address: [address] [place] [address], [address] [place] [address], [place] [address] Director: Nathanael Muñoz MD us Nino Hammonds MD LAB BLOOD ORDERABLES Final Res ult [facility] * (ABNORMAL) POCT glycosylated hemoglobin (Hb A1C) docked device (02/08/2025 4:08 PM EDT) Hemoglobin A1C 6.6 Blood Venous blood specimen / Unknown 02/08/2025 4:08 PM EDT us Nino Hammonds MD POINT OF CARE TEST ENTER/EDIT ORDERABLES Final Result * Diabetic Retinopathy Screening - OU - Both Eyes (12/31/2023) RESULTS ndr Anatomical Region Laterality Modality Head Other 12/31/2023 us Nino Hammonds MD OPHTH PHOTOGRAPHY Final Result * COLONOSCOPY DIAGNOSTIC (03/13/2023) Anatomical Region Laterality Modality Radiographic Verna ging 03/13/2023 us Nino Hammonds MD IMG XR PROCEDURES Final Result from Last 3 Months or Most Recently Relevant to Health Maintenance Insurance MEDICARE [facility] MEDICARE SUPPLEMENT Care Teams Bolt Maker Relationship Specialty Start Date End Date Nino Hammonds MD [address] [facility] [address] [place] [address] PCP - ACO Reach 11/29/22 Nino Hammonds MD [address] [facility] [address] [place] [address] PCP - General Internal Medicine 12/26/22
--- OUTSIDE RECORDS SUMMARY | 2025-03-01 15:45 | XMS_ITS | Encounter Summary ---
Author Organization [facility] Address [address] [place] [address] Care Team Providers Care Automation Driver Name Role Phone Nino Hammonds MD Unavailable [phone] Nino Hammonds MD Primary Care Provider [phone] Peggy Wade LAYOUT WORKER Unavailable [phone] Encounter Details Date Type Department Care Team (Late st Contact Info) Description 02/24/2025 Telephone [facility] [place] [facility] [address] [facility] 110 [place] [phone] Nino Hammonds MD 112 [facility] [address] [place] [address] Social History Tobacco Use Types Packs/Day Years [...] encounter Miscellaneous Notes * Telephone Encounter - Batsheva Jean Baptiste MA - 02/24/2025 10:31 AM EDT mistake documented in this encounter Plan of Treatment Upcoming Encounters Date Type Department Care Team (Late st Contact Info) Description 03/24/2025 8:45 AM EDT Office Visit [facility] [place] [facility] [address] [facility] [address] [place] [address] Nino Hammonds MD [address] [facility] [address] [place] [address] documented as of this encounter Visit Diagnoses Not on filedocumented in this encounter Care Teams Automation Driver Relationship Specialty Start Date End Date Nino Hammonds MD [address] [facility] [address] [place] [address] PCP - ACO Reach 11/29/22 Nino Hammonds MD [address] [facility] [address] [place] [address] PCP - General Internal Medicine 12/26/22 Peggy Wade, SHAY [address] [place] [address] Customer Marketing Manager Family Medicine 02/18/25 02/25/25 documented as of this encounter
--- OUTSIDE RECORDS SUMMARY | 2025-03-01 15:45 | XMS_ITS | Encounter Summary ---
Author Organization [facility] Address [address] [place] [address] Care Team Providers Care Parts Data Writer Name Role Phone Nino Hammonds MD Unavailable [phone] Nino Hammonds MD Primary Care Provider [phone] Peggy Wade MANAGER BODY Unavailable [phone] Encounter Details Date Type Department Care Team (Late Contact Info) Description 06/12/2023 Abstract [facility] [place] [facility] 112 [facility] 110 [place] [address] Nino Hammonds MD 112 [facility] 110 [place] [address] Social History Tobacco Use Types Packs/Day Years [...] Office Visit [facility] [place] [address] [facility] 110 [place] [address] Nino Hammonds MD 112 [facility] 110 [place] [address] documented as of this encounter Visit Diagnoses Not on filedocumented in this encounter Care Teams Parts Data Writer Relationship Specialty Start Date End Date Nino Hammonds MD [address] [facility] 110 [place], [place] [phone] PCP - ACO Reach 11/29/22 Nino Hammonds MD [address] [facility] 110 [place] [address] PCP - General Internal Medicine 12/26/22 Peggy Wade, MANAGER BODY [address], [place] [id number] Business And Financial Counsel Family Medicine 02/18/25 02/25/25 documented as of this encounter
--- OUTSIDE RECORDS SUMMARY | 2025-03-01 15:45 | XMS_ITS | Clinical Summary ---
Author Organization [facility] Address [address] [place] [id number] Care Team Providers Care Managed Care Director Name Role Phone Unavailable Primary Care Provider Unavailabl e Allergies No known active allergies Medications sitaGLIPtin (JANUVIA) 100 mg tablet Take 100 mg by mouth once daily. Active terazosin 5 mg capsule Take 5 mg by mouth daily at bedtime. Active warfarin 10 mg tablet Take 10 mg by mouth daily as directed. Active Lovastatin 20 mg 24 hr tablet Take 20 mg by mouth daily at bedtime. Active metFORMIN 500 mg 24 hr tablet Take 500 mg by mouth twice daily with meals. Active finasteride 5 mg tablet Take 5 mg by mouth once daily. Active Active Problems Problem Noted Date Diagnosed Date Renal mass 09/10/2012 Pulmonary embolism Family History Medical History Relation Comments Cancer Father stomach Diabetes Mother Relation Status Comments Father Mother Social History Tobacco Use Types Packs/Day Years Used Date Smoking Tobacco: Never Smokeless Tobacco: Never Alcohol Use Standard Drinks/Week Comments Yes 0 (1 standard drink = 0.6 oz pur e alcohol) socially Sex and Gender Information Value Date Recorded Sex Assigned at Not on file Legal Sex Male 12:21 PM EST Gender Identity Not on file Sexual Orientation Not on file Last Filed Vital Signs Vital Sign Reading Time Taken Comments Blood Pressure 158/70 09/24/2012 2:05 PM EDT Pulse 85 09/24/2012 2:05 PM EDT Temperature - - Respiratory Rate - - Oxygen Saturation - - Inhaled Oxygen Concentration - - Weight 95.3 kg (210 lb) 09/24/2012 2:05 PM EDT Height 180.3 cm (5' 11 ) 09/10/2012 2:17 PM EST Body Mass Index 29.29 09/10/2012 2:17 PM EST Plan of Treatment Upcoming Encounters Date Type Department Care Team (Latest Contact Info) Description 03/04/2025 11:00 AM EDT Visit (SP) Office Hematology/Oncology [address] [place] [address] [place] [address] Ollie Duong MD [address] [place] [address] [place] [address] Jurado for active blood clot Health Maintenance Due Date Last Done Comments Anxiety Screening 1972 Depression Screening 1972 Hepatitis C Screening 1972 DTaP,Tdap,Td Vaccine (1 - Tdap) [address] Colonography 1999 Cologuard (FIT-DNA) 1999 Colonoscopy 1999 Colorectal Cancer Screening 1999 Diabetes Screening 1999 Fecal Occult Blood 1999 Sigmoidoscopy 1999 Pneumococcal Vaccine: 50+ (1 of 1 - PCV) 2004 Shingrix Vaccine (1 of 2) 2004 Advance Directive Discussion 07/08/2024 Influenza Vaccine (#1) 2025 , 05/04/2022, 07/14/2020 RSV Vaccine (1 - 1-dose 75+ series) 2029 Insurance MEDICARE Member Subscriber Plan / Payer (Ef fective 2019-Present) Name:Evelio Carrillo Member ID:[id number] Relation to Subscriber:Self Name:Evelio Carrillo Subscriber ID:[id number] Payer ID:Not on file Group ID:Not on file Type:Medicare Address: [facility] [place] [id number]
--- OUTSIDE RECORDS SUMMARY | 2025-03-01 15:45 | XMS_ITS | Clinical Summary ---
Author Organization [facility] Address [address] [place] [address] Care Team Providers Care Early Childhood Name Role Phone Unavailable Primary Care Provider [...]
--- OUTSIDE RECORDS SUMMARY | 2025-03-01 15:45 | XMS_ITS | Encounter Summary ---
Author Organization [facility] Address [address] [place] [address] Care Team Providers Care Flexible Nanny Name Role Phone Nino Hammonds MD Unavailable [phone] Nino Hammonds MD Primary Care Provider [phone] Peggy Wade PATTERN CLERK Unavailable [phone] Encounter Details Date Type Department Care Team (Late Contact Info) Description 01/05/2025 Abstract [facility] [address] [place] [id number] Liz Pearson LPN [address] [facility] 110 [place] [address] Social History Tobacco Use Types Packs/Day Years [...] Visit [facility] Zaragoza [address] [facility] 110 [place] [address] Nino Hammonds MD 112 [facility] 110 [place] [address] documented as of this encounter Visit Diagnoses Not on filedocumented in this encounter Care Teams Flexible Nanny Relationship Specialty Start Date End Date Nino Hammonds MD [address] [facility] 110 [place] [address] PCP - ACO Reach 11/29/22 Nino Hammonds MD [address] [facility] 110 [place] [address] PCP - General Internal Medicine 12/26/22 Peggy Wade, SHAY [address] [place] [address] Operator Ground Based Air Defence Family Medicine 02/18/25 02/25/25 documented as of this encounter
--- OUTSIDE RECORDS SUMMARY | 2025-03-01 15:45 | XMS_ITS | Encounter Summary ---
Author Organization [facility] Address [address] [place] [address] Care Team Providers Care Honest John Rocket Crew Member Name Role Phone Nino Hammonds MD Unavailable [phone] Nino Hammonds MD Primary Care Provider [phone] Peggy Wade Unavailable [phone] Encounter Details Date Type Department Care Team (Late st Contact Info) Description 02/24/2025 Orders Only [facility] [place] [facility] Medince [address] [facility] 110 [place] [address] Denita Maxwell LPN [address] [place] [address] Acute bilateral low back pain without sciatica; [...] Description 03/24/2025 8:45 AM EDT Office Visit KATHERIN Zaragoza [address] [facility] 110 [place] [address] Nino Hammonds MD [address] [place] [facility] 110 [place] [address] documented as of this encounter Visit Diagnoses Diagnosis Acute bilateral low back pain without sciatica Localized edema Edema History of primary malignant neoplasm of kidney documented in this encounter Care Teams Honest John Rocket Crew Member Relationship Specialty Start Date End Date Nino Hammonds MD [address] [place] [facility] 110 [place] [address] PCP - ACO Reach 11/29/22 Nino Hammonds MD [address] [place] [facility] 110 [place] [address] PCP - General Internal Medicine 12/26/22 Peggy Wade, SHAY [address] [facility] [address] Flange Turner Family Medicine 02/18/25 02/25/25 documented as of this encounter
--- OUTSIDE RECORDS SUMMARY | 2025-03-01 15:45 | XMS_ITS | Encounter Summary ---
Author Organization [facility] Address [address] [place] [address] Care Team Providers Care Woodwind Instrument Repairer Name Role Phone Nino Hammonds MD Unavailable [phone] Nino Hammonds MD Primary Care Provider [phone] Peggy Wade SOLE BUFFER Unavailable [phone] Encounter Details Date Type Department Care Team (Late Contact Info) Description 08/06/2023 Abstract [facility] [place] Zaragoza [address] [facility] 110 [place] [address] Nino Hammonds MD 112 [facility] 110 [place] [address] Social History Tobacco Use Types Packs/Day Years [...] Office Visit [facility] [place] Zaragoza [address] [facility] 110 [place] [phone] Nino Hammonds MD 112 [facility] 110 [place] [address] documented as of this encounter Visit Diagnoses Not on filedocumented in this encounter Care Teams Woodwind Instrument Repairer Relationship Specialty Start Date End Date Nino Hammonds MD [address] [facility] 110 [place] [address] PCP - ACO Reach 11/29/22 Nino Hammonds MD [address] [facility] 110 [place] [address] PCP - General Internal Medicine 12/26/22 Peggy Wade, SHAY [address] [place] [address] Pl Sql Programmer Family Medicine 02/18/25 02/25/25 documented as of this encounter
--- OUTSIDE RECORDS SUMMARY | 2025-03-01 15:45 | XMS_ITS | Encounter Summary ---
Author Organization [facility] Address [address] [place] [address] Care Team Providers Care Plain Clothes Police Officer Name Role Phone Nino Hammonds MD Unavailable [phone] Nino Hammonds MD Primary Care Provider [phone] Reason for Visit * Reason Comments Med Refill Encounter Details Date Type Department Care Team (Late Contact Info) Description 02/28/2025 Refill [facility] [place] Yange [address] [facility] 110 [place] [phone] Nino Hammonds MD 112 [facility] 110 [place] [address] BPH with urinary obstruction Social History Tobacco Use Types Packs/Day Years [...] Office Visit [facility] [place] [address] [facility] 110 [place] [phone] Nino Hammonds MD 112 [facility] 110 [place] [address] documented as of this encounter Visit Diagnoses Diagnosis 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
--- OUTSIDE RECORDS SUMMARY | 2025-03-01 15:45 | XMS_ITS | Encounter Summary ---
Author Organization [facility] Address [address] [place] [address] Care Team Providers Care Personal Computer Network Analyst Name Role Phone Nino Hammonds MD Unavailable [phone] Nino Hammonds MD Primary Care Provider [phone] Peggy Wade VINEYARD WORKER Unavailable [phone] Encounter Details Date Type Department Care Team (Late Contact Info) Description 01/05/2025 Abstract [facility] [place] Zaragoza [address] [facility] 110 [place] [address] Nino Hammonds MD 112 [facility] 110 [place] [address] Social History Tobacco Use Types Packs/Day Years [...] Office Visit [facility] [place] Zaragoza [address] [facility] 110 [place] [phone] Nino Hammonds MD 112 [facility] 110 [place] [address] documented as of this encounter Visit Diagnoses Not on filedocumented in this encounter Care Teams Personal Computer Network Analyst Relationship Specialty Start Date End Date Nino Hammonds MD [address] [facility] 110 [place] [address] PCP - ACO Reach 11/29/22 Nion Hammonds MD [address] [facility] 110 [place] [address] PCP - General Internal Medicine 12/26/22 Peggy Wade, SHAY [address] [place] [address] Ghost Writer Family Medicine 02/18/25 02/25/25 documented as of this encounter
--- OUTSIDE RECORDS SUMMARY | 2025-03-01 15:45 | XMS_ITS | Encounter Summary ---
Author Organization [facility] Address [address] [place] [address] Care Team Providers Care Clinical Biochemist Name Role Phone Nino Hammonds MD Unavailable [phone] Nino Hammonds MD Primary Care Provider [phone] Peggy Wade CARPENTRY INSTRUCTOR Unavailable [phone] Encounter Details Date Type Department Care Team (Late Contact Info) Description 07/10/2023 Abstract [facility] [place] Zaragoza 112 [facility] 110 [place] [phone] Nino Hammonds MD 112 [facility] 110 [place] [address] Social History Tobacco Use Types Packs/Day Years [...] Visit [facility] [place] Zaragoza [address] [facility] 110 [place] [address] Nino Hammonds MD 112 [facility] 110 [place] [address] documented as of this encounter Visit Diagnoses Not on filedocumented in this encounter Care Teams Clinical Biochemist Relationship Specialty Start Date End Date Nino Hammonds MD [address] [facility] 110 [place], [place] [phone] PCP - ACO Reach 11/29/22 Nino Hammonds MD [address] [facility] 110 [place] [address] PCP - General Internal Medicine 12/26/22 Peggy Wade, CARPENTRY INSTRUCTOR [address] [place], [place] [phone] Cycle Specialist Family Medicine 02/18/25 02/25/25 documented as of this encounter
--- OUTSIDE RECORDS SUMMARY | 2025-03-01 15:45 | XMS_ITS | Encounter Summary ---
Author Organization [facility] Address [address] [place] [address] Care Team Providers Care Inspector Outside Production Name Role Phone Nino Hammonds MD Unavailable [phone] Nino Hammonds MD Primary Care Provider [phone] Encounter Details Date Type Department Care Team (Latest Contact Info) Description 02/15/2025 Travel Social History Tobacco Use Types Packs/Day [...] [place] Zaragoza [address] [facility] 110 [place] [address] Nino Hammonds MD [address] [facility] 110 [place], [place] [address] documented as of this encounter Visit Diagnoses Not on filedocumented in this encounter Care Teams Inspector Outside Production Relationship Specialty Start Date End Date Nino Hammonds MD [address] [facility] 110 [place], [place] [phone] PCP - ACO Reach 11/29/22 Nino Hammonds MD [address] [place] [id number] PCP - General Internal Medicine 12/26/22 documented as of this encounter
--- OUTSIDE RECORDS SUMMARY | 2025-03-01 15:45 | XMS_ITS | Encounter Summary ---
Author Organization [facility] Address [address] [place] [address] Care Team Providers Care Pharmacy Intake Technician Name Role Phone Nino Hammonds MD Unavailable [phone] Nino Hammonds MD Primary Care Provider [phone] Peggy Wade IMAGING NURSE Unavailable [phone] Reason for Visit * Reason Comments Med Change Request Encounter Details Date Type Department Care Team ([facility] Contact Info) Description 02/22/2025 Refill [facility] [place] Medince [address] [facility] 110 [place] [address] Nino Hammonds MD 112 [place] [facility] 110 [place], [place] [phone] Localized edema Social History Tobacco Use Types [...] 8:45 AM EDT Office Visit [facility]ince [address] [facility] 110 [place] [address] Nino Hammonds MD [address] [place] [facility] 110 [place] [address] documented as of this encounter Visit Diagnoses Diagnosis Localized edema Edema documented in this encounter Care Teams Pharmacy Intake Technician Relationship Specialty Start Date End Date Nino Hammonds MD [address] [facility] 110 [place] [address] PCP - ACO Reach 11/29/22 Nino Hamomnds MD [address] [facility] 110 [place] [address] PCP - General Internal Medicine 12/26/22 Peggy Wade, IMAGING NURSE [address] [place] [address] Web Design Instructor Family Medicine 02/18/25 02/25/25 documented as of this encounter
== END 2025-03-01 15:41 | disposition home or self-care (01) ==
PROVIDERS: PCP Internal Medicine; Visit Provider Urology
DX: Z79.01 Long term (current) use of anticoagulants (principal)
CPT/HCPCS: 93970

== ENCOUNTER 2025-03-01 17:15 | Emergency (ER) | payer MEDICARE, SELFPAY ==
[2025-03-01 17:24] VITALS: BP 167/81; PULSE 93; O2SAT 100; BMI 32.3
--- NOTE | 2025-03-01 19:26 | ED.GENADUL1 ---
HPI HPI - General Adult General Chief complaint: Extremity Problem, Nontraumatic Stated complaint: Possible Blood Clot in Leg Time Seen by Provider: 03/01/25 17:34 Source: patient Mode of arrival: walk-in Limitations: no limitations History of Present Illness HPI narrative: Patient is a 69-year-old male presenting to the emergency department from the vascular lab for concerns of extensive DVT. The patient was getting outpatient duplex ultrasounds of the lower extremities ordered by his primary care physician for concerns of DVT. I was called by the diesel scoop operator, who explained the extent of the patient's clot burden, and I recommended he come to the ED for evaluation. The patient states he has been having increasing leg swelling bilaterally for the last few weeks. He was just placed on Xarelto yesterday by his PCP, which he has been taking. 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 Currently, the patient denies any chest pain or shortness of breath. He denies any numbness/weakness/tingling/skin changes in the lower extremities. Other than leg swelling, he is currently asymptomatic. Related Data Home Medications ?Medication ?Instructions ?Recorded ?Confirmed finasteride 5 mg tablet 5 mg PO DAILY 01/01/25 03/01/25 insulin glargine 100 60 unit subcut QAM 01/01/25 03/01/25 unit-lixisenatide 33 mcg/mL subcutaneous pen (Soliqua 100/33) insulin regular human 100 unit/mL 30 unit subcut .BEFORE DINNER 01/01/25 03/01/25 (3 mL) subcutaneous pen (Novolin R FlexPen) lisinopril 5 mg tablet 5 mg PO DAILY 01/01/25 03/01/25 lovastatin 20 mg tablet 20 mg PO .QHS 01/01/25 03/01/25 terazosin 5 mg capsule 5 mg PO DAILY 01/01/25 03/01/25 ciprofloxacin HCl 500 mg tablet 500 mg PO BID 03/01/25 03/01/25 doxycycline hyclate 100 mg capsule 100 mg PO DAILY 03/01/25 03/01/25 hydrocodone 5 mg-acetaminophen 325 1 tab PO Q6H PRN pain 03/01/25 03/01/25 mg tablet rivaroxaban 15 mg (42)-20 mg (9) 15 ea PO BID 03/01/25 03/01/25 tablets in a starter pack (Xarelto DVT-PE Treatment 30-Day Starter) torsemide 20 mg tablet 20 mg PO DAILY 03/01/25 03/01/25 Allergies Allergy/AdvReac Type Severity Reaction Status Date / Time No Known Drug Allergies Allergy Verified 03/01/25 17:26 Opioid HPI Opioid Management Most Recent Opioid Data: Last Pain Scale 3 01/01/25, 09:52 Review of Systems ROS Status of ROS 10 or more systems reviewed and unremarkable except as noted in history and below PFSH PFSH Social History Little interest or pleasure in doing things: not at all Feeling down, depressed, or hopeless: not at all Exam Narrative Exam Narrative: CONSTITUTIONAL: Well-appearing, answering questions and following commands appropriately SKIN: Was warm and dry. EYES: Sclerae white. EARS, NOSE, THROAT: Moist oral mucosa. RESPIRATORY: Clear to auscultation bilaterally, no wheezes, crackles, or stridor, no use of accessory muscles CARDIOVASCULAR: Normal rate and regular rhythm. 2+ DP pulses bilaterally GASTROINTESTINAL: Abdomen is nondistended. MUSCULOSKELETAL: Bilateral pitting edema in the lower extremities. There is no overlying erythema. No cyanosis. No significant tenderness. Ambulating with a steady gait. Legs feel warm and well-perfused NEUROLOGIC: Patient is awake and alert. Equal strength and sensation to light touch in the bilateral lower extremities. Constitutional Vital Signs, click to edit/add: Last Vital Signs Pulse 93 H 03/01/25 17:24 Resp 18 03/01/25 17:24 BP 167/81 H 03/01/25 17:24 Pulse Ox 100 03/01/25 17:24 O2 Del Method Room Air 03/01/25 17:24 Course Vital Signs Vital signs: Vital Signs Pulse Rate 93 H 03/01/25 17:24 Respiratory Rate 18 03/01/25 17:24 Blood Pressure 167/81 H 03/01/25 17:24 Pulse Oximetry 100 03/01/25 17:24 Oxygen Delivery Method Room Air 03/01/25 17:24 Pulse Rate 93 H 03/01/25 17:24 Respiratory Rate 18 03/01/25 17:24 Blood Pressure 167/81 H 03/01/25 17:24 Pulse Oximetry 100 03/01/25 17:24 Oxygen Delivery Method Room Air 03/01/25 17:24 Medical Decision Making [facility] Narrative Medical decision making narrative: Patient is a 69-year-old male presenting to the emergency department from the vascular lab for concerns of extensive DVT found on outpatient duplex ultrasounds of the bilateral lower extremities. His vital signs are within normal limits. He is afebrile and hemodynamically stable. He is asymptomatic other than the swelling in the lower extremities. He has no symptoms of PE. The lower extremities are neurovascuarly intact with good peripheral perfusion. I did discuss the patient with the diesel scoop operator, who stated the patient had extensive clot burden. On the right lower extremity, he has involvement of the iliac, popliteal, peroneal, and posterior tibial veins. On the left, he has involvement of the iliac and common femoral veins. I consulted and discussed the patient with on-call vascular surgeon, Dr. Rizzo, who recommended he follow up in his clinic tomorrow morning at 9:00am to discuss treatment options such as thrombectomy. I do believe the patient is stable for discharge. He was instructed to continue taking his Xarelto as prescribed. Return precautions were given including chest pain or shortness of breath. He was instructed to follow-up with the vascular surgeon tomorrow. He also has an appointment with his rental car porter on . Patient understands and agrees to the plan. FINAL IMPRESSION: #Acute bilateral deep vein thrombosis DISPOSITION: Discharged home CONDITION: Good Discharge Plan Discharge Chief Complaint: Extremity Problem, Nontraumatic Clinical Impression: Deep vein thrombosis of lower extremity Qualifiers: Laterality: bilateral Patient Disposition: Home, Self-Care Time of Disposition Decision: 18:31 Condition: Good Mode of Transportation: Private Vehicle Prescriptions / Home Meds: No Action torsemide 20 mg tablet 20 mg PO DAILY Xarelto DVT-PE Treat 30d Start 15 mg (42)- 20 mg (9) tablets,dose pack 15 ea PO BID hydrocodone-acetaminophen 5-325 mg tablet 1 tab PO Q6H PRN (Reason: pain) doxycycline hyclate 100 mg capsule 100 mg PO DAILY ciprofloxacin HCl 500 mg tablet 500 mg PO BID finasteride 5 mg tablet 5 mg PO DAILY Soliqua 100/33 100 unit-33 mcg/mL insulin pen 60 unit SUBCUT QAM Novolin R FlexPen 100 unit/mL (3 mL) insulin pen 30 unit SUBCUT .BEFORE DINNER lisinopril 5 mg tablet 5 mg PO DAILY lovastatin 20 mg tablet 20 mg PO .QHS terazosin 5 mg capsule 5 mg PO DAILY Print Language: [place] Instructions: Deep Vein Thrombosis (ED) Referrals: WILLIAM CHOWDHURY [Primary Care Provider, Internal Medicine] - 1 week Discharge Date/Time: 03/01/25 18:37
== END 2025-03-01 18:37 | disposition home or self-care (01) ==
PROVIDERS: Emergency Provider Student in an Organized Health Care Education/Training Program; PCP Internal Medicine
DX: I82.493 Acute embolism and thrombosis of other specified deep vein of lower extremity, bilateral (principal); Z79.01 Long term (current) use of anticoagulants; R60.0 Localized edema
CPT/HCPCS: 93970; 99281

== ENCOUNTER 2025-03-29 11:46 | Outpatient (OUT) | payer MEDICARE, SELFPAY ==
--- OUTSIDE RECORDS SUMMARY | 2025-03-29 11:51 | XMS_ITS | CCD ---
Author Organization [facility] Inform ion Partnership [facility] Care Team Providers Care [employer] Founder Name Role Phone NINO HAMMONDS Primary Care Physician LUCIANA, DR THOMAS Primary Care Unavailable EDY, DR QUINTERO Admitting Unavailable EDY, DR QUINTERO Attending Unavailable LUCIANA, DR THOMAS Primary Care Unavailable EDY, DR QUINTERO Admitting Unavailable EDY, DR QUINTERO Consulting Unavailable EDY, DR QUINTERO Attending Unavailable BRODERICK, DR TUAN Dalton Consulting Unavailable AIDAN HDEZ Consulting Unavailable Nino Hammonds MD Unavailable Nino Hammonds MD Primary Care Provider [phone] [facility] Nino Hammonds II Primary Care Provider [phone] Troy Rizzo MD Attending Provider [phone] Lanny KIRKLAND-C, Amalia Reilly Attending Provider Unavailable Primary Care Provider UnavailTroy Schmidt MD Attending Provider [phone] Troy Rizzo MD Other Provider [phone] Troy Rizzo MD Admit Provider Leana Bass RN Other Provider Unavailable Colleen SY, Dee Dee Other Provider Unavailable Mirtah Flores RN Other Provider Unavailable Alla Mcqueen RN Other Provider Unavailable Sarah Mirza RN Other Provider Unavailable Bruna Valencia RN Other Provider Unavailable Tanya Gerber MD Other Provider Ila Emerson DO Other Provider [phone] Td Reyes MD Other Provider [phone] Jac Barrera DO Other Provider Anton FOX, Dwight Other Provider Alicia Hill MD Other Provider [phone] Virgen DUNN, Alok Other Provider Devyn Mccarty MD Other Provider Unavailable Roxana Renee APRN Other Provider [phone] Amber FOX, Shannen Other Provider Odalis Vitale MD Other Provider Unavailable Margie Montgomery MD Other Provider Jami DUNN, Alok Other Provider Maria T Guillen MD Other Provider Orlando Ray MD Other Provider Belinda CAKE FROSTER-C, Sidra Siddiqui Other Provider [phone] Feliciano HART, Basilio Townsend Other Provider Unavailable Osvaldo Lyle MD Other Provider Leodan FOX, Juan Other Provider Mariann Jean MD Other Provider Unavailable Marizol Johnson DO Other Provider Unavailable Atif Mack DO Other Provider Yady Kaur APRN Other Provider Andres Bryant DO Other Provider Hortencia FOX, Oli Townsend Other Provider Zaida Oviedo APRN Other Provider Rosa Blackwell APRN Other Provider [phone] Nati FOX, Jessica Other Provider Unavailable Nino Cosme MD Other Provider Clover Cottrell DO Other Provider Tarah FOX, Toby Cardozo Other Provider Devan FOX, Nick Urena Other Provider Suzanne Haro APRN Other Provider Unavailable Fabrizio FOX, Norm Other Provider Aamir Daly MD Other Provider Devyn Arboleda MD Other Provider Drew Ramirez MD Other Provider Herber VANGN, Ning Singh Other Provider [phone] Bela HART, Laverne Other Provider Joy RN, Michaela Other Provider Unavailable Batsheva Olivo RN Other Provider Unavailable Arielle Felix DO Other Provider Lucas FOX, Rafi Other Provider Radha FOX, Any Other Provider Preet HART, Lizzy Alcala Other Provider Carrie Sims MD Other Provider Modesta Crocker MD Other Provider Unavailable Wesley CAREER PLACEMENT SERVICES COUNSELOR-BC, Jailene Cruz Other Provider Troy Rizzo Admitting Unavailable Troy Rizzo Attending Unavailable Nino Hammonds Primary Care Unavailable Leana Bass Consulting Unavailable Dee Dee Macias Consulting Unavailable Mirtha Flores Consulting Unavailable Alla Mcqueen Consulting Unavailable Sarah Mirza Consulting Unavailable Bruna Valencia Consulting Unavailable Tanya Gerber Consulting Unavailable Ila Emerson Consulting Unavailable Td Reyes Consulting Unavailable Jac Barrera Consulting UnavailDwight Nolasco Consulting Unavailable Alicia Hill Consulting Unavailable Alok New Consulting Unavailable Devyn Mccarty Consulting Unavailable Roxana Renee Consulting UnavailShannen Farrell Consulting Unavailable Odalis Vitale Consulting Unavailable Margie Montgomery Consulting Unavailable Alok Farrell Consulting Unavailable Maria T Guillen Consulting Unavailable Orlando Ray Consulting Unavailable Sidra Trevino Consulting Unavailable Basilio Wiggins Consulting Unavailable Osvaldo Lyle Consulting Unavailab Juan Gay Consulting Unavailable Mariann Jean Consulting Unavailable Marizol Johnson Consulting Unavailable Atif Mack Consulting Unavailable Yady Kaur Consulting Unavailable Andres Bryant Consulting Unavailable Oli Burnett Consulting Unavailable Zaida Oviedo Consulting Unavailable Rosa Blackwell Consulting Unavailable Jessica Damian Consulting Unavailable Nino Cosme Consulting Unavailable Clover Cottrell Consulting Unavailable Toby Rascon Consulting Unavailable Nick Hartman Consulting UnaSuzanne Pavon Consulting Unavailable Norm Dinh Consulting Unavailable Aamir Daly Consulting Unavailable Devyn Arboleda Consulting Unavailable Drew Ramirez Consulting Unavailable Ning Craven Consulting Unavailable Laverne Cramer Consulting Unavaila Michaela Britt Consulting Unavailable Batsheva Olivo Consulting Unavailable Batsheva Olivo Consulting Unavailable Arielle Felix Consulting Unavailable Rafi Zavala Consulting Unavailable Any Garcia Consulting Unavailable Lizzy Oviedo Consulting Unavailable Carrie Sims Consulting Unavailable Modesta Crocker Consulting Unavailable Jailene Olson Consulting Unavailable NINO HAMMONDS Attending Unavailable NINO HAMMONDS Attending Unavailable NINO HAMMONDS Attending Unavailable NINO HAMMONDS Attending Unavailable NINO HAMMONDS Referring Unavailable MARGOTH CHANCE Attending Unavailable NINO HAMMONDS Attending Unavailable NINO HAMMONDS Attending Unavailable Clifton SNOW Attending Unavailable EDY, Clifton Reilly Attending Unavailable EDY, Clifton Reilly Attending Unavailable EDY, Clifton Reilly Attending Unavailable EDY, Clifton Reilly Attending Unavailable DENA CABALLERO Attending Unavailable NINO HAMMONDS Primary Care Unavailable Medications Current Medications Medication Drug Class(es) Dates Sig (Normalized) Sig (Original) acetaminophen 325 mg / HYDROcodone bitartrate 5 mg oral tablet (7 sources) Opioid Agonist Start: 03-01-2025 End: 03-03-2025 acetaminophen-hydr ocodone 325 mg-5 mg oral tablet 1 tab(s), Refill(s) 0 Start Date: 03/01/25 Status: Ordered Repeat number: 1 Start: 02-24-2025 End: 03-01-2025 take 1 tablet by mouth every six hours as needed for pain HYDROcodone-acetaminophen (NORCO) 5-325 mg per tablet TAKE 1 TABLET BY MOUTH EVERY 6 HOURS NEEDED FOR SEVERE PAIN FOR UP TO 5 DAYS 02/24/2025 Active aspirin 81 mg oral tablet (20 sources) Platelet Aggregation Inhibitor, Nonsteroidal Anti-inflammatory Drug Start: 06-26-2024 take 81 mg by mouth once daily aspirin 81 mg, Oral, Daily, Refills(s) 0 Start Date: 06/26/24 Status: Ordered End: 02-24-2025 take 1 tablet by mouth once daily aspirin 81 MG EC tablet Take 81 mg by mouth Daily 02/24/2025 Discontinued benzonatate 100 mg oral capsule (1 source) Non-narcotic Antitussive Start: 01-01-2025 take 1 capsule by mouth three times daily as needed for cough benzonatate (TESSALON PERLE) 100 mg capsule take 1 capsule by mouth three times a day as needed for cough 01/01/2025 Active doxycycline hyclate 100 mg oral capsule (4 sources) Tetracycline-class Drug Start: 03-01-2025 End: 03-11-2025 doxycycline (Vibramycin) 100 MG capsule 03/01/2025 Active finasteride 5 mg oral tablet (20 sources) 5-alpha Reductase Inhibitor Start: 01-07-2019 take 1 tablet by mouth once daily finasteride 5 mg Tab 5 mg = 1 tab(s), Oral, Daily, # 90 tab(s), Refills(s) 3, Pharmacy: [facility]/pharmacy #[id number], 185.4, cm, 12/01/20 15:05:00 EDT, Height/Length Dosing, 103, kg, 12/01/20 15:05:00 EDT, Weight Dosing Start Date: 12/04/20 Status: Ordered Quantity: 90.0 Unit: tab(s) Repeat number: 4 furosemide 20 mg oral tablet (8 sources) Loop Diuretic Start: 02-08-2025 End: 02-15-2025 take 1 tablet by mouth in the morning furosemide (Lasix) 20 MG tablet Take 1 tablet by mouth in the morning. 02/08/2025 Active 3 ml insulin glargine 100 unt/ml / lixisenatide 0.033 mg/ml pen injector (20 sources) Insulin Analog Start: 12-17-2024 Insulin Glargine-Lixisena tide (Soliqua 100/33) 100 unit-33 mcg/mL insulin pen Active 60 UNIT SUBCUT .am March 02, 2025 12:00am Complies with drug therapy Start: 02-18-2024 insulin glargi ne-lixisenatide (Soliqua) 100-33 UNT-MCG/ML pen Indications: Uncontrolled type 2 diabetes mellitus with hyperglycemia ([facility]) INJECT 60 UNITS UNDER THE SKIN IN THE MORNING BEFORE MEALS 18 mL 11 02/18/2024 Active Start: 01-23-2021 Start: 01-23-2021 Soliqua 100/33 subcutaneous solution unit(s), SubCutaneous, Refills(s) 0 Start Date: 01/23/21 Status: Ordered Repeat number: 1 3 ml insulin lispro 100 unt/ml pen injector (6 sources) Insulin Analog Start: 01-28-2023 insulin lispro (HUMALOG KWIKPEN INSULIN) 100 unit/mL Refills(s) 0 01/28/2023 Active Start: 01-28-2023 HumaLOG KwikPe n 100 units/mL injectable solution Refills(s) 0 Start Date: 01/28/23 Status: Ordered Repeat number: 1 3 ml insulin, regular, human 100 unt/ml pen injector (20 sources) Insulin Start: 03-02-2025 Insulin Regula r Human (Novolin R Flexpen) 100 unit/mL (3 mL) insulin pen Active 30 UNIT SUBCUT .dinner March 02, 2025 12:00am Complies with drug therapy Start: 03-02-2025 Start: 05-15-2024 insulin regula r (NovoLIN R FlexPen) 100 UNIT/ML pen Indications: Type 2 diabetes mellitus with diabetic neuropathy, with long-term current use of insulin ([facility]) INJECT 30 UNITS SUBCUTANEOUSLY ONCE IN THE EVENING BEFORE MEAL 30 mL 3 05/15/2024 Active lisinopril 20 mg oral tablet (20 sources) Angiotensin Converting Enzyme Inhibitor Start: 03-05-2025 take 1 tablet by mouth once daily Start: 01-07-2019 End: 03-05-2025 take 1 tablet by mouth once daily lisinopril 5 mg Tab 5 mg = 1 tab(s), Oral, Daily, # 30 tab(s), Refills(s) 0 Start Date: 07/24/19 Status: Ordered Quantity: 30.0 Unit: tab(s) Repeat number: 1 lovastatin 20 mg oral tablet (20 sources) HMG-CoA Reductase Inhibitor Start: 01-07-2019 take 1 tablet by mouth at bedtime lovastatin (Mevacor) 20 MG tablet Indications: Mixed hyperlipidemia TAKE 1 TABLET BY MOUTH AT BEDTIME 100 tablet 3 05/15/2024 Active take 1 tablet by soni th once daily at bedtime Lovastatin 20 mg 24 hr tablet Take 20 mg by mouth daily at bedtime. Active osmotic 24 hr metFORMIN hydrochloride 500 mg extended release oral tablet (1 source) Biguanide take 1 tablet by mouth twice daily at mealtime metFORMIN 500 mg 24 hr tablet Take 500 mg by mouth twice daily with meals. Active 24 hr metoprolol succinate 25 mg extended release oral tablet (1 source) beta-Adrenergic Juarez Start: take 1 tablet by mouth once daily rivaroxaban 20 mg oral tablet (16 sources) Factor Xa Inhibitor Start: take 1 tablet by mouth twice daily at mealtime Start: 03-05-2025 take 1 tablet by soni th once daily at dinner Start: 03-02-2025 take 1 tablet by soni th twice daily Rivaroxaban (Xarelto Dvt-Pe Treat 30d Start) 15 mg (42)- 20 mg (9) tablets,dose pack Active 1 TAB PO Twice daily March 02, 2025 12:00am Complies with drug therapy Start: 03-02-2025 Start: 03-02-2025 Rivaroxaban (X arelto Dvt-Pe Treat 30d Start) 15 mg (42)- 20 mg (9) tablets,dose pack Active TAB PO March 02, 2025 12:00am Complies with drug therapy Start: 03-01-2025 Xarelto Starte r Pack 15 mg-20 mg oral tablet See Instructions, Refills(s) 0 Start Date: 03/01/25 Status: Ordered Repeat number: 1 Start: 02-24-2025 XARELTO DVT-PE TREAT 30D START 15 mg (42)- 20 mg (9) DsPk TAKE 15MG BY MOUTH TWICE DAILY FOR 21 DAYS,THEN 20MG DAILY 02/24/2025 Active Start: 02-24-2025 Rivaroxaban (X arelto Starter Pack) 15 & 20 MG tablet therapy pack Indications: Acute deep vein thrombosis (DVT) of iliac vein of right lower extremity (HCC) 15 mg twice a day for 21 days, then 20 mg daily. 51 each 02/24/2025 Active Start: 01-23-2021 take 1 tablet by soni th once daily Xarelto 10 mg oral tablet 10 mg = 1 tab(s), Oral, Daily, Refills(s) 0 Start Date: 01/23/21 Status: Ordered SITagliptin 100 mg oral tablet (1 source) Dipeptidyl Peptidase 4 Inhibitor take 1 tablet by mouth once daily sitaGLIPtin (JANUVIA) 100 mg tablet Take 100 mg by mouth once daily. Active terazosin 5 mg oral capsule (20 sources) alpha-Adrenergic Juarez Start: 9 take 1 capsule by mouth once daily at bedtime terazosin 5 mg Cap 5 mg = 1 cap(s), Oral, Once a day (at bedtime), # 30 cap(s), Refills(s) 0 Start Date: 07/24/19 Status: Ordered Quantity: 30.0 Unit: cap(s) Repeat number: 1 tiZANidine 4 mg oral tablet (7 sources) Central alpha-2 Adrenergic Agonist Start: 5 End: take 1 tablet by mouth every six hours for muscle spasms tiZANidine (ZANAFLEX) 4 mg tablet TAKE 1 TABLET (4 MG) BY MOUTH EVERY 6 HOURS IF NEEDED FOR MUSCLE SPASMS FOR UP TO 10 DAYS 02/08/2025 Active torsemide 20 mg oral tablet (15 sources) Loop Diuretic Start: 5 End: 5 torsemide 20 mg Tab 20 mg = 1 tab(s), Refills(s) 0 Start Date: 03/01/25 Status: Ordered Repeat number: 1 Completed/Discontinued Medications Medication Drug Class(es) Dates Sig (Normalized) Sig (Original) cholecalciferol 0.05 mg oral capsule (4 sources) Vitamin D Start: 01-07-2019 End: 03-02-2025 take 1 capsule by mouth once daily Cholecalciferol (Vitamin D3) 2,000 unit capsule Discontinued 2000 UNITS PO Daily January 07, 2019 12:00am March 02, 2025 10:10am cinnamon bark 500 mg oral capsule (4 sources) Start: 01-07-2019 End: 03-02-2025 take 1 capsule by mouth once daily Cinnamon Bark (Cinnamon) 500 mg Capsule Discontinued 2000 MG PO Daily January 07, 2019 12:00am March 02, 2025 10:10am ciprofloxacin 500 mg oral tablet (6 sources) Quinolone Antimicrobial Start: 02-24-2025 End: 03-03-2025 Ciprofloxacin Hcl 500 mg tablet Discontinued MG March 03, 2025 12:00am March 03, 2025 3:05pm glipiZIDE er 5 mg 24 hr extended release oral tablet (4 sources) Sulfonylurea Start: 01-07-2019 End: 03-02-2025 take 1 tablet by mouth once daily in the evening Glipizide 5 mg tablet extended release 24hr Discontinued 10 MG PO Daily January 07, 2019 12:00am March 02, 2025 10:10am 5 mg in the evening Semaglutide (Ozempic) 1 mg/dose (2 mg/1.5 mL) Pen Injector (4 sources) Start: 01-07-2019 End: 03-02-2025 inject 1 mg by subcutaneous injection every week Semaglutide (Ozempic) 1 mg/dose (2 mg/1.5 mL) Pen Injector Discontinued 1 MG SUBCUT every week January 07, 2019 12:00am March 02, 2025 10:10am warfarin sodium 10 mg oral tablet (5 sources) Vitamin K Antagonist Start: 01-07-2019 End: 03-02-2025 Warfarin 10 mg tablet Discontinued 10 MG PO As Directed January 07, 2019 12:00am March 02, 2025 10:10am Problems Active Problems Problem Classification Problem Date Documented Date Episodic/Chronic Acute bronchitis (2 sources) Acute bronchiolitis; 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: [Acute bronchiolitis, unspecified] 01-11-2025 Episodic Administrative/social admission (4 sources) Counseling procedure with explicit context; 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: [Dietary counseling and surveillance] Episodic Cancer of kidney and renal pelvis (7 sources) Malignant tumor of kidney 07-23-2019 Chronic Cancer of kidney and renal pelvis (20 sources) History of malignant neoplasm of kidney; 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: [Personal history of other malignant neoplasm of kidney] Onset: 9 Episodic Cardiac dysrhythmias (3 sources) Atrial fibrillation; 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: [Unspecified atrial fibrillation] Onset: 5 03-03-2025 Chronic Chronic kidney disease (20 sources) Chronic kidney disease stage 3B ; 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: [Stage 3b chronic kidney disease (HCC)] Onset: 9 Resolved: 4 12-29-2022 Chronic Coagulation and hemorrhagic disorders (20 sources) Hypercoagulability state; 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: [Other primary thrombophilia] Onset: 3 12-29-2022 Chronic Diabetes mellitus with complications (20 sources) Peripheral neuropathy due to type 2 diabetes mellitus; 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: [Type 2 diabetes mellitus with diabetic polyneuropathy] Onset: 9 Resolved: 4 03-04-2023 Chronic Diabetes mellitus without complication (20 sources) Diabetes mellitus; 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: [Type 2 diabetes mellitus] Onset: 9 Resolved: 4 07-23-2019 Chronic Diabetes mellitus without complication (5 sources) Glycosuria 01-22-2020 Episodic Disorders of lipid metabolism (20 sources) Hyperlipidemia; 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: [Mixed hyperlipidemia] Onset: 9 01-12-2019 Chronic Essential hypertension (6 sources) Hypertensive disorder; 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: [Essential (primary) hypertension] Onset: 5 03-02-2025 Chronic Genitourinary symptoms and ill-defined conditions (20 sources) Delay when starting to pass urine; 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: [Poor stream of urine] Onset: 3 Resolved: 4 01-12-2019 Episodic Hyperplasia of prostate (20 sources) Benign prostatic hypertrophy with outflow obstruction; 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: [Benign prostatic hyperplasia with lower urinary tract symptoms] Onset: 2 Chronic Immunizations and screening for infectious disease (2 sources) Needs influenza immunization; 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: [Encounter for immunization] 06-25-2024 Episodic Other aftercare (1 source) Long-term current use of insulin; 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: [long term care phlebotomist (current) use of insulin] Episodic Other circulatory disease (20 sources) Inferior vena cava filter in situ; 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: [Presence of other vascular implants and grafts] Onset: 3 12-29-2022 Chronic Other diseases of bladder and urethra (5 sources) Hypertrophy of bladder; 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: [Other specified disorders of bladder] 02-24-2025 Chronic Other diseases of bladder and urethra (2 sources) Disorder of bladder; 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: [Other specified disorders of bladder] Onset: 5 Chronic Other diseases of kidney and ureters (20 sources) Renal mass; 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: [Other specified disorders of kidney and ureter] Onset: 3 Resolved: 4 01-12-2019 Chronic Other diseases of kidney and ureters (1 source) Other specified disorders of kidney and ureter; 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: [OTHER SPEC DISORDERS KIDNEY URETER] Onset: 2 Chronic Other diseases of kidney and ureters (2 sources) Disorder of kidney and/or ureter; 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: [Other specified disorders of kidney and ureter] Onset: 5 Chronic Other diseases of kidney and ureters (1 source) Ureteritis 03-01-2025 Chronic Other diseases of kidney and ureters (1 source) Urinary tract obstruction; 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: [Other obstructive and reflux uropathy] Onset: 5 Episodic Other nutritional; endocrine; and metabolic disorders (20 sources) Obese class I; 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: [Obesity, Class I, BMI 30-34.9] Onset: 4 02-24-2024 Chronic Other screening for suspected conditions (not mental disorders or infectious disease) (20 sources) Raised prostate specific antigen; 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: [Elevated prostate specific antigen [PSA]] Onset: 2 Episodic Phlebitis; thrombophlebitis and thromboembolism (20 sources) H/O: Deep vein thrombosis; 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: [Personal history of other venous thrombosis and embolism] Onset: 9 03-04-2023 Episodic Pulmonary heart disease (9 sources) Chronic pulmonary embolism; 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: [Chronic pulmonary embolism] 07-23-2019 Chronic Pulmonary heart disease (20 sources) Pulmonary embolism; 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: [H/O: pulmonary embolus] Onset: 9 01-12-2019 Episodic Residual codes; unclassified (4 sources) Family history of cancer; 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: [Family history of malignant neoplasm of prostate] Onset: 2 Episodic Residual codes; unclassified (20 sources) Family history of prostate cancer; 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: [Family history of malignant neoplasm of prostate] Onset: 3 Resolved: 4 01-12-2019 Episodic Residual codes; unclassified (10 sources) Localized edema; 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: [Localized edema] Onset: 5 02-08-2025 Episodic Residual codes; unclassified (3 sources) Bilateral lower limb edema; 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: [Localized edema] 03-02-2025 Episodic Residual codes; unclassified (1 source) Localized edema; 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: [Localized edema] Onset: Episodic Spondylosis; intervertebral disc disorders; other back problems (6 sources) Acute low back pain; 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: [Acute bilateral low back pain without sciatica] 02-08-2025 Episodic Unclassified (7 sources) Drug therapy finding 07-24-2019 Unclassified (1 source) Please call office with any questions or concerns. Unclassified (1 source) Please call office with any questions or concerns. Unclassified (1 source) A [facility] screening has identified you as FRAIL or AT RISK FOR FRAILTY. This puts you at a higher risk for infection, illness, falls, and other injuries. Here are four ways to help you reduce your risk of frailty: 1. IDENTIFY EARLY SIGNS OF FRAILTY Discuss contributing factors and concerns with your doctor 2. BE ACTIVE Walking and light strengthening exercises will help reduce weakness 3. EAT WELL Aim for three healthy meals a day that are high in protein 4. THINK POSITIVE Keep your mind active by being sociable and continuing to learn References: Stay Strong: Four Ways to Beat the Frailty Risk [email or web address]-[email or web address]-[email or web address] -[email or web address]-fra ilty-[email or web address] 03-05-2025 Unclassified (2 sources) Finding of sensation of bladder 03-16-2025 Past or Other Problems Problem Classification Problem Date Documented Da te Episodic/Chronic Other aftercare (20 sources) Long-term current use of anticoagulant; 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: [long term care phlebotomist (current) use of anticoagulants] Onset: 10-31-2018 03-04-2023 Episodic Other aftercare (20 sources) Drug therapy finding; 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: [long term care phlebotomist (current) use of anticoagulants] Onset: 03-04-2023 Resolved: 07-31-2023 07-31-2023 Episodic Other and unspecified benign neoplasm (20 sources) Adenomatous polyp of colon ; 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: [Benign neoplasm of colon, unspecified] Onset: 12-29-2022 12-29-2022 Episodic Other and unspecified benign neoplasm (20 sources) Benign neoplasm of colon; 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: [Benign neoplasm of colon, unspecified] Onset: 10-31-2018 03-04-2023 Episodic Other and unspecified benign neoplasm (20 sources) History of polyp of colon; 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: [History of colon polyps] Onset: 03-04-2023 03-04-2023 Episodic Other diseases of kidney and ureters (20 sources) Disorder of urinary tract; 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: [Other obstructive and reflux uropathy] Onset: 12-29-2022 12-29-2022 Episodic Results Test Name Value Interpretation Reference Range Facility Urology Office/Clinic Noteon 03-16-2025 Urology Office/Clinic Note Urology Office/Clinic Note Chief Complaint Patient is here for Cysto HPI Staff Cysto d/t bladder wall thickening. Abx taken History of Present Illness Tests reviewed: I have reviewed the previous health record information and history for this patient from Dr. Snow. I have reviewed and verified the staff HPI to be accurate for this encounter. Review of Systems PHQ Score Initial [...] See HPI. Physical Exam Vitals & Measurements HR: 56(Peripheral) RR: 20 BP: 120/50 HT: 185 cm HT: 73 in WT: 104.9 kg WT: 231.265 lb BMI: 30.65 General Appearance: alert, no distress, well nourished, well developed adult. Procedure Operative Information Anesthesia Type: Local Procedure: Local Cystoscopy Complications: None Surgical risks, benefits, details of the procedure have been explained to the patient. Full informed consent has been obtained. Intraoperative Information Prepped: Patient is brought back to the endoscopy suite. Patient is placed in supine position. Patient prepped in the usual fashion with Betadine solution. 2% Xylocaine Jelly is placed per Urethra. After waiting several minutes, the Cystoscope is introduced. The Urethra is: Normal The Prostatic Urethra is: Bilobar hypertrophy, long lateral lobes. The Bladder: No tumors or stones, Trabeculated: Severe (3) with open tics. The Ureteral orifices: Show efflux of clear urine Specimens Removed: None Removal: Cystoscope is removed. The patient tolerated it well. Postoperative Information Patient is discharged home with antibiotic coverage. Follow up arranged. Assessment/Plan 1. Bladder wall thickening (N32.89: Other specified disorders of bladder) CT AP wo con 02/22/25 NOMS - R kidney surgically absent. No renal stones or hydro. Mild L perinephric stranding is nonspecific. Thickening of distal L ureter with periureteral fat stranding. Diffuse wall thickening of bladder. Mild perivesicular fat stranding. Pt had IO cysto today wo complications. Completed Doxycycline 100 mg x 10 day course for urethritis. The thick bladder wall by ct is from thick trabeculation due to bph. 2. Ureteritis (N28.89: Other specified disorders of kidney and ureter) See #1. Resolved. 3. Elevated PSA (R97.20: Elevated prostate specific antigen [PSA]) PSA 04/06/19 - 2.54 (5.08) 12/12/21 - 1.32 (2.64) 12/29/22 - 1.86 (3.72) 01/03/24 - 1.54 (3.08) S/p neg TRUS/bx 2013. -PSA due 06/2025 4. H/O renal cell cancer (Z85.528: Personal history of other malignant neoplasm of kidney) S/p R nephrectomy 2012. CXR 12/29/22 TB - no acute abnormality. CT AP wo con 12/29/22 [facility] - no acute abnormality. -CT AP wo con and CXR due 12/2025 5. BPH with urinary obstruction (N40.1: Benign prostatic hyperplasia with lower urinary tract symptoms) CT AP wo con 02/22/25 [facility] - Enlarged prostate. Taking Finasteride 5mg qd and Terazosin 5mg qd (believes primary care prescribed med). Cont both owo changes. Follow up after urocuff or sooner if needed. Pt understands and agrees with plan. -Schedule urocuff 6. Family history of prostate cancer (Z80.42: Family history of malignant neoplasm of prostate) Brother. Increased risk given direct family history. 7. 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 S/p IVC filter placement many yrs ago. Hx of DVT around time of filter placement [1]. Follow-up With When Contact Information Clifton SNOW MD, URL [facility] [address], [place] [address]- Additional Instructions: sched urocuff Patient Education Cystoscopy I, Keli Lane, personally scribed for Dr. Snow on 03/16/2025 13:21:27. Electronically signed by janes Dickey Documentation recorded by the scribe, Keli Lane, accurately reflects the services(s) I performed and decisions made by me. Authenticated by Dr. Snow on 03/16/2025 13:23:41.Domingo on 03/16/2025 13:21:27. Problem List/Past Medical History Ongoing Anticoagulated Bladder wall thickening BPH with urinary obstruction Elevated PSA Family history of prostate cancer H/O renal cell cancer Hyperlipidemia Pulmonary embolism Renal mass Type 2 diabetes mellitus Ureteritis Historical BPH - benign prostatic hyperplasia Chronic pulmonary embolism. Diabetes mellitus Renal cancer Procedure/Surgical History Cystoscopy (03/16/2025), Transrectal biopsy of prostate using ultrasound (US) guidance (06/22/2014), Transrectal biopsy of prostate usin (more content not included)... Normal [facility] Comment on above: Result Comment: Elec tronically Signed By: Keli Lane\.br\Date and Time Signed: 03/16/25 13:30 EDT\.br\Electronically Co-Signed By: Clifton SNOW MD\.br\Date and Time Co-Signed: 03/17/25 15:19 EDT Capillary blood glucose susan urement by glucometer (mass/volume)Ordered By: Troy Rizzo on 03-05-2025 Glucose [Mass/Vol] 137 mg/dL Normal [facility] Comment on above: Random Glucose Refer ence Range is dependent on time and content of last meal. Glucose of more than 200 mg/dL in a nonstressed, ambulatory subject supports the diagnosis of Diabetes Mellitus. Result Comment: [place] Glucose Reference Range is dependent on time and content of last meal. Glucose of more than 200 mg/dL in a nonstressed, ambulatory subject supports the diagnosis of Diabetes Mellitus. PERFORMED BY: [facility] [address] [place] [address] PATHOLOGIST REFINERY SUPERINTENDENT LIZZIE CASTRO M.D. Performed By: #### T 4F, LIPID, TSH3, BMP #### [address] Glucose Poct Glucometerson 0 03-05-2025 Glucose [Mass/Vol] 126 mg/dL Normal [facility] Comment on above: Result Comment: [facility] [place][note 2] Glucose Reference Range is dependent on time and content of last meal. Glucose of more than 200 mg/dL in a nonstressed, ambulatory subject supports the diagnosis of Diabetes Mellitus. PERFORMED BY: [place] [address] PATHOLOGIST REFINERY SUPERINTENDENT LIZZIE CASTRO M.D. Performed By: #### T 4F, LIPID, TSH3, BMP #### [address] A1C with Estimated Average G luon 03-04-2025 Glucose [Mass/Vol] 143 mg/dL Normal [facility] Comment on above: Result Comment: PERF ORMED BY: [place] [address] PATHOLOGIST REFINERY SUPERINTENDENT LIZZIE CASTRO M.D. Performed By: #### A 1C WT eA #### [address] Basic Metabolic Panelon 02-06 Creatinine Clr Calc Pharmacy 46.29 Normal [facility] Comment on above: Performed By: #### T 4F, LIPID, TSH3, BMP #### [address] GFR/1.73 sq M.predicted MDRD (S/P/Bld) [Vol rate/Area] 36.330 mL/min/{1.73_m2} Normal [facility] Comment on above: Performed By: #### T 4F, LIPID, TSH3, BMP #### [address] Basophils [#/volume] in Bloo d by Automated countOrdered By: Troy Rizzo on 03-04-2025 Basophils (Bld) [#/Vol] 0.0 10*3/uL Normal 0.0-0.2 [facility] Comment on above: Order Comment: Comme nt Every 6 hour while on tPA Result Comment: PERF ORMED BY: [place] [address] PATHOLOGIST REFINERY SUPERINTENDENT LIZZIE CASTRO M.D. Performed By: #### T 4F, LIPID, TSH3, BMP #### [address] Basophils/100 leukocytes in Blood by Automated countOrdered By: Troy Rizzo on 03-04-2025 Basophils/100 WBC (Bld) 0.4 % Normal . [facility] Comment on above: Order Comment: Comme nt Every 6 hour while on tPA Performed By: #### T 4F, LIPID, TSH3, BMP #### [address] Blood estimated average gluc ose determination by estimation from glycated hemoglobinOrdered By: Andres Bryant on 03-04-2025 Average glucose Estimated from glycated hemoglobin (Bld) [Mass/Vol] 143 mg/dL [facility] Calcium [Mass/volume] in Ser um or PlasmaOrdered By: Andres Bryant on 03-04-2025 Calcium [Mass/Vol] 8.7 mg/dL Normal 8.6-10.3 [facility] Comment on above: Performed By: #### T 4F, LIPID, TSH3, BMP #### [address] Carbon dioxide, total [Moles /volume] in Serum or PlasmaOrdered By: Andres Bryant on 03-04-2025 CO2 [Moles/Vol] 28.4 mmol/L Normal 21.0-31.0 [facility] Comment on above: Performed By: #### T 4F, LIPID, TSH3, BMP #### [place] [address] [place] Chloride [Moles/volume] in S klever or PlasmaOrdered By: Andres Bryant on 03-04-2025 Chloride [Moles/Vol] 107 mmol/L Normal 98-107 [facility] Comment on above: Performed By: #### T 4F, LIPID, TSH3, BMP #### [facility] [address] [place] [id number] [place] Cholesterol [Mass/volume] in Serum or PlasmaOrdered By: Andres Bryant on 03-04-2025 Cholesterol [Mass/Vol] 135 mg/dL Low 140-200 [facility] Comment on above: Chol less than 200 m g/dl low riskChol 201-239 mg/dl borderline riskChol 240 mg/dl and greater high risk Result Comment: Chol less than 200 mg/dl low risk Chol 201-239 mg/dl borderline risk Chol 240 mg/dl and greater high risk Performed By: #### T 4F, LIPID, TSH3, BMP #### [facility] [address] [place] [id number] [place] Cholesterol in HDL [Mass/vol ume] in Serum or PlasmaOrdered By: Andres Bryant on 03-04-2025 Cholesterol in HDL [Mass/Vol] 38 mg/dL Normal 23-92 [facility] Comment on above: HDL CHOL ATP-III CLA SSIFICATION Cardiovascular RiskHDL > or equal to 60 mg/dL LOWHDL < 40 mg/dL HIGH Result Comment: HDL CHOL ATP-III CLASSIFICATION Cardiovascular Risk HDL > or equal to 60 mg/dL LOW HDL < 40 mg/dL HIGH Performed By: #### T 4F, LIPID, TSH3, BMP #### [facility] [address] [place] [id number] [place] Cholesterol in LDL Calc [Mas s/Vol]Ordered By: Andres Bryant on 03-04-2025 Cholesterol in LDL [Mass/Vol] 78 mg/dL 0-100 [facility] Comment on above: LDL ATP III CLASSIFI CATIONLDL less than 100 mg/dL OptimalLDL 100-129 mg/dL Near or above optimalLDL 130-159 mg/dL Borderline highLDL 160-189 mg/dL HighLDL greater than 189 mg/dL Very high Cholesterol in VLDL Calc [Ma ss/Vol]Ordered By: Andres Bryant on 03-04-2025 Cholesterol in VLDL [Mass/Vol] 19 mg/dL [facility] Coagulation Profileon 2024 aPTT Coag (Bld) [Time] 31.7 s Normal 25.1-36.5 [facility] Comment on above: Order Comment: Comme nt Every 6 hours while on tPA Result Comment: A he matocrit value greater than 55% may lead to inaccurate results in coagulation testing. Patients having hematocrit values >55% require a special collection tube for coagulation studies. Please contact the laboratory at [phone] for redraw instructions. Performed By: #### T 4F, LIPID, TSH3, BMP #### [facility] [address] [place] [address] [facility] aPTT Coag (Bld) [Time] 34.3 s Normal 25.1-36.5 [facility] Comment on above: Order Comment: Comme nt Every 6 hours while on tPA Result Comment: A he matocrit value greater than 55% may lead to inaccurate results in coagulation testing. Patients having hematocrit values >55% require a special collection tube for coagulation studies. Please contact the laboratory at [phone] for redraw instructions. Performed By: #### F IB-C, CBC, PP #### [facility] [address] [place] [address] [place] INR Coag (PPP) [Relative time] 1.5 {INR} Normal [facility] Comment on above: Order Comment: Comme nt Every 6 hours while on tPA Result Comment: INR Therapeutic Range A) Pre- and Peroperative OAT started two weeks before surgery. NOT HIP SURGERY: 1.5 - 2.5 HIP SURGERY: 2 - 3 B) Primary and secondary prevention of venous THROMBOSIS: 2 - 3 C) Active venous thrombosis, pulmonary embolism and prevention of recurrent venous thrombosis: 2 - 3 D) Prevention of arterial thromboembolism including patients with mechanical heart valves: 3 - 4.5 Performed By: #### F IB-C, CBC, PP #### [facility] [address] [place] [address] [place] PT Coag (PPP) [Time] 17.3 s High 9.0-12.9 [facility] Comment on above: Order Comment: Comme nt Every 6 hours while on tPA Result Comment: A he matocrit value greater than 55% may lead to inaccurate results in coagulation testing. Patients having hematocrit values >55% require a special collection tube for coagulation studies. Please contact the laboratory at [phone] for redraw instructions. Performed By: #### F IB-C, CBC, PP #### [place] [id number] [place] aPTT Coag (Bld) [Time] 38.7 s High 25.1-36.5 [facility] Comment on above: Order Comment: Comme nt Every 6 hours while on tPA Result Comment: A he matocrit value greater than 55% may lead to inaccurate results in coagulation testing. Patients having hematocrit values >55% require a special collection tube for coagulation studies. Please contact the laboratory at [phone] for redraw instructions. Performed By: #### T 4F, LIPID, TSH3, BMP #### [place] [id number] [facility] INR Coag (PPP) [Relative time] 1.7 {INR} Normal [facility] Comment on above: Order Comment: Comme nt Every 6 hours while on tPA Result Comment: INR Therapeutic Range A) Pre- and Peroperative OAT started two weeks before surgery. NOT HIP SURGERY: 1.5 - 2.5 HIP SURGERY: 2 - 3 B) Primary and secondary prevention of venous THROMBOSIS: 2 - 3 C) Active venous thrombosis, pulmonary embolism and prevention of recurrent venous thrombosis: 2 - 3 D) Prevention of arterial thromboembolism including patients with mechanical heart valves: 3 - 4.5 Performed By: #### T 4F, LIPID, TSH3, BMP #### [place] [id number] [place] PT Coag (PPP) [Time] 19.6 s High 9.0-12.9 [facility] Comment on above: Order Comment: Comme nt Every 6 hours while on tPA Result Comment: A he matocrit value greater than 55% may lead to inaccurate results in coagulation testing. Patients having hematocrit values >55% require a special collection tube for coagulation studies. Please contact the laboratory at [phone] for redraw instructions. Performed By: #### T 4F, LIPID, TSH3, BMP #### [address] [address] [place] Complete Blood Count Auto Di ffon 03-04-2025 Mean Corpuscular HGB Conc 33.5 g/dL Normal 32.5-35.6 [facility] Comment on above: Order Comment: Comme nt Every 6 hour while on tPA Performed By: #### T 4F, LIPID, TSH3, BMP #### [address] NRBC% 0.0 /100{WBC} Normal 0-0.5 [facility] Comment on above: Order Comment: Comme nt Every 6 hour while on tPA Performed By: #### T 4F, LIPID, TSH3, BMP #### [address] White Blood Count 8.8 [CFU]/mL Normal 4.1-10.5 [facility] Comment on above: Order Comment: Comme nt Every 6 hour while on tPA Performed By: #### T 4F, LIPID, TSH3, BMP #### [address] Basophils (Bld) [#/Vol] 0.0 10*3/uL Normal 0.0-0.2 [facility] Comment on above: Order Comment: Comme nt Every 6 hour while on tPA Result Comment: PERF ORMED BY: [place] [address] PATHOLOGIST REFINERY SUPERINTENDENT LIZZIE CASTRO M.D. Performed By: #### F IB-C, CBC, PP #### [address] Basophils/100 WBC (Bld) 0.5 % Normal . [facility] Comment on above: Order Comment: Comme nt Every 6 hour while on tPA Performed By: #### F IB-C, CBC, PP #### [place] [address] [place] Eosinophils (Bld) [#/Vol] 0.1 10*3/uL Normal 0.0-0.45 [facility] Comment on above: Order Comment: Comme nt Every 6 hour while on tPA Performed By: #### F IB-C, CBC, PP #### [address] Eosinophils/100 WBC (Bld) 1.5 % Normal . [facility] Comment on above: Order Comment: Comme nt Every 6 hour while on tPA Performed By: #### F IB-C, CBC, PP #### [address] Erythrocyte distribution width (RBC) [Ratio] 14.6 % Normal 12.0-14.8 [facility] Comment on above: Order Comment: Comme nt Every 6 hour while on tPA Performed By: #### F IB-C, CBC, PP #### [address] Hematocrit (Bld) [Volume fraction] 28.9 % Low 38.8-50.0 [facility] Comment on above: Order Comment: Comme nt Every 6 hour while on tPA Performed By: #### F IB-C, CBC, PP #### [address] Hemoglobin (Bld) [Mass/Vol] 9.7 g/dL Low 13.0-17.0 [facility] Comment on above: Order Comment: Comme nt Every 6 hour while on tPA Performed By: #### F IB-C, CBC, PP #### [address] Lymphocytes (Bld) [#/Vol] 1.4 10*3/uL Normal 1.00-4.8 [facility] Comment on above: Order Comment: Comme nt Every 6 hour while on tPA Performed By: #### F IB-C, CBC, PP #### [address] Lymphocytes/100 WBC (Bld) 16.2 % Normal . [facility] Comment on above: Order Comment: Comme nt Every 6 hour while on tPA Performed By: #### F IB-C, CBC, PP #### [address] MCH (RBC) [Entitic mass] 30.1 pg Normal 27.5-35.2 [facility] Comment on above: Order Comment: Comme nt Every 6 hour while on tPA Performed By: #### F IB-C, CBC, PP #### [address] MCV (RBC) [Entitic vol] 89.8 fL Normal 83.5-101 [facility] Comment on above: Order Comment: Comme nt Every 6 hour while on tPA Performed By: #### F IB-C, CBC, PP #### [address] Mean Corpuscular HGB Conc 33.5 g/dL Normal 32.5-35.6 [facility] Comment on above: Order Comment: Comme nt Every 6 hour while on tPA Performed By: #### F IB-C, CBC, PP #### [address] Monocytes (Bld) [#/Vol] 1.0 10*3/uL High 0.0-0.8 [facility] Comment on above: Order Comment: Comme nt Every 6 hour while on tPA Performed By: #### F IB-C, CBC, PP #### [address] Monocytes/100 WBC (Bld) 12.0 % Normal . [facility] Comment on above: Order Comment: Comme nt Every 6 hour while on tPA Performed By: #### F IB-C, CBC, PP #### [address] Neutrophils (Bld) [#/Vol] 6.0 10*3/uL Normal 1.8-7.7 [facility] Comment on above: Order Comment: Comme nt Every 6 hour while on tPA Performed By: #### F IB-C, CBC, PP #### [address] Neutrophils/100 WBC (Bld) 69.8 % Normal . [facility] Comment on above: Order Comment: Comme nt Every 6 hour while on tPA Performed By: #### F IB-C, CBC, PP #### [address] NRBC% 0.0 /100{WBC} Normal 0-0.5 [facility] Comment on above: Order Comment: Comme nt Every 6 hour while on tPA Performed By: #### F IB-C, CBC, PP #### [address] Platelet mean volume (Bld) [Entitic vol] 7.3 fL Normal 6.6-10.1 [facility] Comment on above: Order Comment: Comme nt Every 6 hour while on tPA Performed By: #### F IB-C, CBC, PP #### [address] Platelets (Bld) [#/Vol] 264 10*3/uL Normal 150-450 [facility] Comment on above: Order Comment: Comme nt Every 6 hour while on tPA Performed By: #### F IB-C, CBC, PP #### [address] RBC (Bld) [#/Vol] 3.22 10*6/uL Low 3.90-5.60 [facility] Comment on above: Order Comment: Comme nt Every 6 hour while on tPA Performed By: #### F IB-C, CBC, PP #### [address] WBC (Bld) [#/Vol] 8.6 10*3/uL Normal 4.1-10.5 [facility] Comment on above: Order Comment: Comme nt Every 6 hour while on tPA Performed By: #### F IB-C, CBC, PP #### [address] White Blood Count 8.6 [CFU]/mL Normal 4.1-10.5 [facility] Comment on above: Order Comment: Comme nt Every 6 hour while on tPA Performed By: #### F IB-C, CBC, PP #### [address] Basophils (Bld) [#/Vol] 0.0 10*3/uL Normal 0.0-0.2 [facility] Comment on above: Order Comment: Comme nt Every 6 hour while on tPA Result Comment: PERF ORMED BY: [place] [address] PATHOLOGIST REFINERY SUPERINTENDENT LIZZIE CASTRO M.D. Performed By: #### T 4F, LIPID, TSH3, BMP #### [address] Basophils/100 WBC (Bld) 0.5 % Normal . [facility] Comment on above: Order Comment: Comme nt Every 6 hour while on tPA Performed By: #### T 4F, LIPID, TSH3, BMP #### [address] Eosinophils (Bld) [#/Vol] 0.1 10*3/uL Normal 0.0-0.45 [facility] Comment on above: Order Comment: Comme nt Every 6 hour while on tPA Performed By: #### T 4F, LIPID, TSH3, BMP #### [address] Eosinophils/100 WBC (Bld) 0.9 % Normal . [facility] Comment on above: Order Comment: Comme nt Every 6 hour while on tPA Performed By: #### T 4F, LIPID, TSH3, BMP #### [address] Erythrocyte distribution width (RBC) [Ratio] 14.9 % High 12.0-14.8 [facility] Comment on above: Order Comment: Comme nt Every 6 hour while on tPA Performed By: #### T 4F, LIPID, TSH3, BMP #### [address] Hematocrit (Bld) [Volume fraction] 29.3 % Low 38.8-50.0 [facility] Comment on above: Order Comment: Comme nt Every 6 hour while on tPA Performed By: #### T 4F, LIPID, TSH3, BMP #### [address] Hemoglobin (Bld) [Mass/Vol] 9.8 g/dL Low 13.0-17.0 [facility] Comment on above: Order Comment: Comme nt Every 6 hour while on tPA Performed By: #### T 4F, LIPID, TSH3, BMP #### [address] Lymphocytes (Bld) [#/Vol] 1.5 10*3/uL Normal 1.00-4.8 [facility] Comment on above: Order Comment: Comme nt Every 6 hour while on tPA Performed By: #### T 4F, LIPID, TSH3, BMP #### [address] Lymphocytes/100 WBC (Bld) 16.6 % Normal . [facility] Comment on above: Order Comment: Comme nt Every 6 hour while on tPA Performed By: #### T 4F, LIPID, TSH3, BMP #### [address] MCH (RBC) [Entitic mass] 29.6 pg Normal 27.5-35.2 [facility] Comment on above: Order Comment: Comme nt Every 6 hour while on tPA Performed By: #### T 4F, LIPID, TSH3, BMP #### [address] MCV (RBC) [Entitic vol] 88.6 fL Normal 83.5-101 [facility] Comment on above: Order Comment: Comme nt Every 6 hour while on tPA Performed By: #### T 4F, LIPID, TSH3, BMP #### [address] Mean Corpuscular HGB Conc 33.4 g/dL Normal 32.5-35.6 [facility] Comment on above: Order Comment: Comme nt Every 6 hour while on tPA Performed By: #### T 4F, LIPID, TSH3, BMP #### [address] Monocytes (Bld) [#/Vol] 1.0 10*3/uL High 0.0-0.8 [facility] Comment on above: Order Comment: Comme nt Every 6 hour while on tPA Performed By: #### T 4F, LIPID, TSH3, BMP #### [address] Monocytes/100 WBC (Bld) 10.9 % Normal . [facility] Comment on above: Order Comment: Comme nt Every 6 hour while on tPA Performed By: #### T 4F, LIPID, TSH3, BMP #### [address] Neutrophils (Bld) [#/Vol] 6.4 10*3/uL Normal 1.8-7.7 [facility] Comment on above: Order Comment: Comme nt Every 6 hour while on tPA Performed By: #### T 4F, LIPID, TSH3, BMP #### [address] Neutrophils/100 WBC (Bld) 71.1 % Normal . [facility] Comment on above: Order Comment: Comme nt Every 6 hour while on tPA Performed By: #### T 4F, LIPID, TSH3, BMP #### [address] NRBC% 0.0 /100{WBC} Normal 0-0.5 [facility] Comment on above: Order Comment: Comme nt Every 6 hour while on tPA Performed By: #### T 4F, LIPID, TSH3, BMP #### [place] [address] [place] Platelet mean volume (Bld) [Entitic vol] 7.0 fL Normal 6.6-10.1 [facility] Comment on above: Order Comment: Comme nt Every 6 hour while on tPA Performed By: #### T 4F, LIPID, TSH3, BMP #### [address] Platelets (Bld) [#/Vol] 289 10*3/uL Normal 150-450 [facility] Comment on above: Order Comment: Comme nt Every 6 hour while on tPA Performed By: #### T 4F, LIPID, TSH3, BMP #### [facility] [address] [place] [address] [place] RBC (Bld) [#/Vol] 3.31 10*6/uL Low 3.90-5.60 [facility] Comment on above: Order Comment: Comme nt Every 6 hour while on tPA Performed By: #### T 4F, LIPID, TSH3, BMP #### [facility] [address] [place] [id number] [place] WBC (Bld) [#/Vol] 9.0 10*3/uL Normal 4.1-10.5 [facility] Comment on above: Order Comment: Comme nt Every 6 hour while on tPA Performed By: #### T 4F, LIPID, TSH3, BMP #### [facility] [address] [place], [place] [id number] [facility] White Blood Count 9.0 [CFU]/mL Normal 4.1-10.5 [facility] Comment on above: Order Comment: Comme nt Every 6 hour while on tPA Performed By: #### T 4F, LIPID, TSH3, BMP #### [facility] [address] [place], [place] [id number] [place] Creatinine [Mass/volume] in Serum or PlasmaOrdered By: Andres Bryant on 03-04-2025 Creatinine [Mass/Vol] 1.95 mg/dL High 0.70-1.30 [facility] Comment on above: Performed By: #### T 4F, LIPID, TSH3, BMP #### [facility] [address] [place] [id number] [place] ECG 12 lead ECGon 03-04-2025 ECG 12 lead ECG [facility] Main [place] [address] [place] [address] Electrocardiograph Report Signed Patient: Evelio Irene MR#: [id number] : 1955 Acct:[id number] Age/Sex: 69 / M ADM Date: 03/03/25 Loc: Room: [address] [place] [address] Type: ADM IN Attending Dr: Troy Rizzo MD Ordering Provider: Any Garcia MD Date of Service: 03/04/25 ECG/ECG 12 lead ECG: afib Copies to: Test Reason : Blood Pressure : 154/68 mmHG Vent. Rate : 77 BPM Atrial Rate : 88 BPM P-R Int : * ms QRS Dur : 138 ms QT Int : 450 ms P-R-T Axes : * -74 48 degrees QTcB Int : 509 ms Atrial fibrillation Right bundle branch block Left anterior fascicular block Bifascicular block Minimal voltage criteria for LVH, may be normal variant Abnormal ECG Confirmed by Joaquin Garza ([id number]) on 03/04/2025 3:07:40 PM Referred By: Electronically Signed By: Joaquin Garza Transcribed By: MUS Signed By Joaquin Garza MD 03/04/25 1507 Normal [facility] echo transthoracicon [facility] echo transthoracic [facility] [address] Echocardiogram Signed Patient: Evelio Irene MR#: [id number] : 1955 Acct:[id number] Age/Sex: 69 / M ADM Date: 03/03/25 Loc: Room: [address] [place] [address] Type: ADM IN Attending Dr: Troy Rizzo MD Ordering Provider: Andres Bryant DO Date of Service: 03/03/25 [facility] echo transthoracic: a-fib Copies to: MD Andres English DO Weight: 254 lb Performed By: GERTRUDIS Thorne BSA: 2.4 m2 BP: 193/82 mmHg HR: 63 Reason For Study: a-fib History: DVT(s/p EKOS), IVC filter, pulmonary embolism, HTN, DM Interpretation Summary Ejection Fraction = 60-65%. Moderate concentric left ventricular hypertrophy. No regional wall motion abnormalities noted. The study was technically suboptimal in quality due to poor acoustic windows . There is no comparison study available. Procedure/Quality: A two-dimensional transthoracic echocardiogram with color flow, Doppler and injection of contrast agent Definity was performed. The study was technically suboptimal in quality due to poor acoustic windows . Left Ventricle: The left ventricular size is normal. Moderate concentric left ventricular hypertrophy. Ejection Fraction = 60-65%. Inadequate for diastolic assessment. No regional wall motion abnormalities noted. Left Atrium: The left atrium appears normal in size. Right Atrium: The right atrium is not well visualized. Right Ventricle: The right ventricle is not well visualized. The right ventricle is grossly normal size. Aortic Valve: The aortic valve is normal in structure. No hemodynamically significant valvular aortic stenosis. No aortic regurgitation is present. Mitral Valve: The mitral valve is normal in structure. No significant mitral valve stenosis. There is no mitral regurgitation noted. Tricuspid Valve: The tricuspid valve is not well visualized. No tricuspid regurgitation. Pulmonic Valve: The pulmonic valve is not well visualized. Arteries: The aortic root is normal size. Pericardium/Pleura: No pericardial effusion seen. IVC/Hepatic Veins: The inferior vena cava is normal in size, with a normal collapsibility index. Measurements with Normals IVSd: 1.6 cm (0.7-1.1 cm)LVIDd: 4.6 cm (3.7-5.4 cm) LVPWd: 1.3 cm (0.7-1.1 cm)LVIDs: 3.2 cm (2.3-3.6 cm) LA dimension: 3.9 cm(2.3-4.0 cm)Ao root diam: 3.6 cm(2.0-3.6 cm) Doppler with Normals LV V1 max: 142.0 cm/sec (0.7-1.7m/s)MV E max abeba: 105.0 cm/sec(0.8-1.3m/s) MV A max abeba: 112.0 cm/sec(0.0-0.0m/s) MV E/A: 0.94 (<1.5) MMode/2D Measurements Calculations TAPSE: 2.5 cm FS: 30.4 % Ao root area: LVOT diam: 2.5 cm RV S Abeba: EDV(Teich): 10.2 cm2 LVOT area: 4.9 cm2 16.8 cm/sec 97.3 ml ESV(Teich): 41.0 ml EF(Teich): 57.9 % __ LVLd ap4: 8.6 cm SV(MOD-sp4): LAV(MOD-sp4): LA A2 area: 17.3 cm2 EDV(MOD-sp4): 91.6 ml 47.4 ml 137.0 ml LAV(MOD-sp2): LA A4 area: 19.1 cm2 LVLs ap4: 6.6 cm 45.1 ml LA length (vol): ESV(MOD-sp4): 6.0 cm 45.4 ml LA vol: 46.8 ml EF(MOD-sp4): 66.9 % LA vol index: 19.9 ml/m2 Doppler Measurements Calculations MV dec time: 0.36 sec MV V2 max: E/E' lat: MV dec slope: 110.0 cm/sec 8.3 MV max P.8 mmHg E/E' med: 293.0 cm/sec2 MV V2 mean: 9.6 60.7 cm/sec MV mean P.0 mmHg MV V2 VTI: 46.8 cm MVA(VTI): 3.3 cm2 __ Ao V2 max: LV V1 max P.0 cm/sec 8.1 mmHg Ao max P.0 mmHg LV V1 mean PG: Ao mean P.0 mmHg 4.0 mmHg Ao V2 mean: LV V1 mean: 119.0 cm/sec 96.8 cm/sec Ao V2 VTI: 37.2 cm LV V1 VTI: 31.9 cm ADAM(I,D): 4.2 cm2 ADAM(V,D): 4.2 cm2 Transcribed By: SCV Performed At: 03/04/25 1257 Signed By: Joaquin Garza MD 03/04/25 1644 Normal [facility] Eosinophils [#/volume] in Bl ood by Automated countOrdered By: Troy Rizzo on 03-04-2025 Eosinophils (Bld) [#/Vol] 0.1 10*3/uL Normal 0.0-0.45 [facility] Comment on above: Order Comment: Comme nt Every 6 hour while on tPA Performed By: #### T 4F, LIPID, TSH3, BMP #### [address] Eosinophils/100 leukocytes i n Blood by Automated countOrdered By: Troy Rizzo on 03-04-2025 Eosinophils/100 WBC (Bld) 1.0 % Normal . [facility] Comment on above: Order Comment: Comme nt Every 6 hour while on tPA Performed By: #### T 4F, LIPID, TSH3, BMP #### [facility] [address] [place] [address] Erythrocyte distribution wid th [Ratio] by Automated countOrdered By: Troy Rizzo on 03-04-2025 Erythrocyte distribution width (RBC) [Ratio] 14.6 % Normal 12.0-14.8 [facility] Comment on above: Order Comment: Comme nt Every 6 hour while on tPA Performed By: #### T 4F, LIPID, TSH3, BMP #### [address] Erythrocytes [#/volume] in B lood by Automated countOrdered By: Troy Rizzo on 03-04-2025 RBC (Bld) [#/Vol] 3.30 10*6/uL Low 3.90-5.60 [facility] Comment on above: Order Comment: Comme nt Every 6 hour while on tPA Performed By: #### T 4F, LIPID, TSH3, BMP #### [facility] [address] [place] [address] Fibrinogenon 03-04-2025 Fibrinogen 166 mg/dL Low 200-393 [facility] Comment on above: Order Comment: Comme nt Every 6 hours while on tPA Result Comment: A he matocrit value greater than 55% may lead to inaccurate results in coagulation testing. Patients having hematocrit values >55% require a special collection tube for coagulation studies. Please contact the laboratory at [phone] for redraw instructions. PERFORMED BY: [address] [place] [address] PATHOLOGIST REFINERY SUPERINTENDENT LIZZIE CASTRO M.D. Performed By: #### T 4F, LIPID, TSH3, BMP #### [address] Fibrinogen 158 mg/dL Low 200-393 [facility] Comment on above: Order Comment: Comme nt Every 6 hours while on tPA Result Comment: A he matocrit value greater than 55% may lead to inaccurate results in coagulation testing. Patients having hematocrit values >55% require a special collection tube for coagulation studies. Please contact the laboratory at [phone] for redraw instructions. PERFORMED BY: [place] [address] PATHOLOGIST REFINERY SUPERINTENDENT LIZZIE CASTRO M.D. Performed By: #### F IB-C, CBC, PP #### [address] Fibrinogen 147 mg/dL Low 200-393 [facility] Comment on above: Order Comment: Comme nt Every 6 hours while on tPA Result Comment: A he matocrit value greater than 55% may lead to inaccurate results in coagulation testing. Patients having hematocrit values >55% require a special collection tube for coagulation studies. Please contact the laboratory at [phone] for redraw instructions. PERFORMED BY: [place] [address] PATHOLOGIST REFINERY SUPERINTENDENT LIZZIE CASTRO M.D. Performed By: #### T 4F, LIPID, TSH3, BMP #### [address] Fibrinogen [Mass/volume] in Platelet poor plasma by Coagulation assayOrdered By: Troy Rizzo on 03-04-2025 Fibrinogen Coag (PPP) [Mass/Vol] 166 mg/dL Low 200-393 [facility] Comment on above: A hematocrit value g reater than 55% may lead to inaccurate results in coagulation testing. Patients having hematocrit values >55% require a special collection tube for coagulation studies. Please contact the laboratory at [phone] for redraw instructions. Glomerular filtration rate [ Volume Rate/Area] in Serum, Plasma or Blood by CreatinineOrdered By: Andres Bryant on 03-04-2025 Glomerular filtration rate [Volume Rate/Area] in Serum, Plasma or Blood by Creatinine 36.330 mL/Min [facility] Glucose Poct Glucometerson 0 03-04-2025 Glucose [Mass/Vol] 245 mg/dL Normal [facility] Comment on above: Result Comment: [facility] [place][note 2] Glucose Reference Range is dependent on time and content of last meal. Glucose of more than 200 mg/dL in a nonstressed, ambulatory subject supports the diagnosis of Diabetes Mellitus. PERFORMED BY: [place] [address] PATHOLOGIST REFINERY SUPERINTENDENT LIZZIE CASTRO M.D. Performed By: #### T 4F, LIPID, TSH3, BMP #### [address] Commemt1 Glu2: Cleaned Meter Normal [facility] Comment on above: Result Comment: PERF ORMED BY: [place] [address] PATHOLOGIST REFINERY SUPERINTENDENT LIZZIE CASTRO M.D. Performed By: #### T 4F, LIPID, TSH3, BMP #### [address] Glucose [Mass/Vol] 264 mg/dL Normal [facility] Comment on above: Result Comment: [facility] [place][note 2] Glucose Reference Range is dependent on time and content of last meal. Glucose of more than 200 mg/dL in a nonstressed, ambulatory subject supports the diagnosis of Diabetes Mellitus. Performed By: #### T 4F, LIPID, TSH3, BMP #### [address] Commemt1 Glu2: Cleaned Meter Normal [facility] Comment on above: Result Comment: PERF ORMED BY: [place] [address] PATHOLOGIST REFINERY SUPERINTENDENT LIZZIE CASTRO M.D. Performed By: #### T 4F, LIPID, TSH3, BMP #### [place] [address] [place] Glucose [Mass/Vol] 145 mg/dL Normal [facility] Comment on above: Result Comment: [place] om Glucose Reference Range is dependent on time and content of last meal. Glucose of more than 200 mg/dL in a nonstressed, ambulatory subject supports the diagnosis of Diabetes Mellitus. Performed By: #### T 4F, LIPID, TSH3, BMP #### [facility] [address] Commemt1 Glu2: Cleaned Meter Normal [facility] Comment on above: Result Comment: PERF ORMED BY: [facility] [address] [place] [address] PATHOLOGIST REFINERY SUPERINTENDENT LIZZIE CASTRO M.D. Performed By: #### T 4F, LIPID, TSH3, BMP #### [facility] [address] Glucose [Mass/Vol] 114 mg/dL Normal [facility] Comment on above: Result Comment: [place] om Glucose Reference Range is dependent on time and content of last meal. Glucose of more than 200 mg/dL in a nonstressed, ambulatory subject supports the diagnosis of Diabetes Mellitus. Performed By: #### T 4F, LIPID, TSH3, BMP #### [facility] [address] [place] [address] [place] Glucose [Mass/volume] in Ser um or PlasmaOrdered By: Andres Bryant on 03-04-2025 Glucose [Mass/Vol] 87 mg/dL Normal 70-100 [facility] Comment on above: ADA recommended refe rence rangeRandom Glucose Reference Range is dependent on time and content of last meal. Glucose of more than 200 mg/dL in a nonstressed, ambulatory subject supports the diagnosis of Diabetes Mellitus. Result Comment: [place] om Glucose Reference Range is dependent on time and content of last meal. Glucose of more than 200 mg/dL in a nonstressed, ambulatory subject supports the diagnosis of Diabetes Mellitus. ADA recommended reference range Performed By: #### T 4F, LIPID, TSH3, BMP #### [facility] [address] [place] [id number] [place] Hematocrit [Volume Fraction] of Blood by Automated countOrdered By: Troy Rizzo on 03-04-2025 Hematocrit (Bld) [Volume fraction] 29.6 % Low 38.8-50.0 [facility] Comment on above: Order Comment: Comme nt Every 6 hour while on tPA Performed By: #### T 4F, LIPID, TSH3, BMP #### [facility] [address] Hemoglobin A1c/Hemoglobin.to vibha in BloodOrdered By: Andres Bryant on 03-04-2025 HbA1c (Bld) [Mass fraction] 6.6 % High 4.3-5.6 [facility] Comment on above: Increased risk for d iabetes: 5.7 - 6.4diabetes: >6.4glycemic control for adults with diabetes: <7.0 Result Comment: Incr eased risk for diabetes: 5.7 - 6.4 diabetes: >6.4 glycemic control for adults with diabetes: <7.0 Performed By: #### A 1C [facility] #### [facility] [address] [place] [address] Hemoglobin [Mass/volume] in BloodOrdered By: Troy Rizzo on 03-04-2025 Hemoglobin (Bld) [Mass/Vol] 9.9 g/dL Low 13.0-17.0 [facility] Comment on above: Order Comment: Comme nt Every 6 hour while on tPA Performed By: #### T 4F, LIPID, TSH3, BMP #### [facility] [address] [place] [address] INR in Platelet poor plasma by Coagulation assayOrdered By: Troy Rizzo on 03-04-2025 INR Coag (PPP) [Relative time] 1.3 {INR} Normal [facility] Comment on above: INR Therapeutic Rang e A) Pre- and Peroperative OAT started two weeks before surgery. NOT HIP SURGERY: 1.5 - 2.5 HIP SURGERY: 2 - 3B) Primary and secondary prevention of venous THROMBOSIS: 2 - 3C) Active venous thrombosis, pulmonary embolismand prevention of recurrent venous thrombosis: 2 - 3D) Prevention of arterial thromboembolismincluding patients with mechanical heart valves: 3 - 4.5 Order Comment: Comme nt Every 6 hours while on tPA Result Comment: INR Therapeutic Range A) Pre- and Peroperative OAT started two weeks before surgery. NOT HIP SURGERY: 1.5 - 2.5 HIP SURGERY: 2 - 3 B) Primary and secondary prevention of venous THROMBOSIS: 2 - 3 C) Active venous thrombosis, pulmonary embolism and prevention of recurrent venous thrombosis: 2 - 3 D) Prevention of arterial thromboembolism including patients with mechanical heart valves: 3 - 4.5 Performed By: #### T 4F, LIPID, TSH3, BMP #### [facility] [address] Leukocytes [#/volume] correc jack for nucleated erythrocytes in Blood by Automated counOrdered By: Troy Rizzo on 03-04-2025 WBC corrected for nucl RBC Auto (Bld) [#/Vol] 8.8 10*3/uL 4.1-10.5 [facility] Leukocytes [#/volume] in Blo od by Automated countOrdered By: Troy Rizzo on 03-04-2025 WBC (Bld) [#/Vol] 8.8 10*3/uL Normal 4.1-10.5 [facility] Comment on above: Order Comment: Comme nt Every 6 hour while on tPA Performed By: #### T 4F, LIPID, TSH3, BMP #### [facility] [address] Lipid Panelon 03-04-2025 LDL Cholesterol,Calculated 78 mg/dL Normal 0-100 [facility] Comment on above: Result Comment: LDL ATP III CLASSIFICATION LDL less than 100 mg/dL Optimal LDL 100-129 mg/dL Near or above optimal LDL 130-159 mg/dL Borderline high LDL 160-189 mg/dL High LDL greater than 189 mg/dL Very high Performed By: #### T 4F, LIPID, TSH3, BMP #### [facility] [address] [place] [id number] [facility] Triglyceride w/Reflex 97 mg/dL Normal 0-149 [facility] Comment on above: Result Comment: TRIG ATP III CLASSIFICATION TRIG less than 150 mg/dL Normal TRIG 150-199 mg/dL Borderline high TRIG 200-500 mg/dL High TRIG greater than 500 mg/dL Very high Standard traceable to the Center for Disease Conrtrol and Prevention (CDC) test method. Performed By: #### T 4F, LIPID, TSH3, BMP #### [facility] [address] [place] [address] VLDL CHOLESTEROL 19 mg/dL Normal [facility] Comment on above: Performed By: #### T 4F, LIPID, TSH3, BMP #### [address] Lymphocytes [#/volume] in Bl ood by Automated countOrdered By: Troy Rizzo on 03-04-2025 Lymphocytes (Bld) [#/Vol] 1.2 10*3/uL Normal 1.00-4.8 [facility] Comment on above: Order Comment: Comme nt Every 6 hour while on tPA Performed By: #### T 4F, LIPID, TSH3, BMP #### [address] Lymphocytes/100 leukocytes i n Blood by Automated countOrdered By: Troy Rizzo on 03-04-2025 Lymphocytes/100 WBC (Bld) 13.3 % Normal . [facility] Comment on above: Order Comment: Comme nt Every 6 hour while on tPA Performed By: #### T 4F, LIPID, TSH3, BMP #### [address] MCH [Entitic mass] by Automa jack countOrdered By: Troy Rizzo on 03-04-2025 MCH (RBC) [Entitic mass] 30.0 pg Normal 27.5-35.2 [facility] Comment on above: Order Comment: Comme nt Every 6 hour while on tPA Performed By: #### T 4F, LIPID, TSH3, BMP #### [facility] [address] [place] [address] MCHC Auto (RBC) [Mass/Vol]Or dered By: Troy Rizzo on 03-04-2025 MCHC (RBC) [Mass/Vol] 33.5 g/dL 32.5-35.6 [facility] MCV [Entitic volume] by Auto mated countOrdered By: Troy Rizzo on 03-04-2025 MCV (RBC) [Entitic vol] 89.5 fL Normal 83.5-101 [facility] Comment on above: Order Comment: Comme nt Every 6 hour while on tPA Performed By: #### T 4F, LIPID, TSH3, BMP #### [facility] [address] [place] [address] [place] Monocytes [#/volume] in Bloo d by Automated countOrdered By: Troy Rizzo on 03-04-2025 Monocytes (Bld) [#/Vol] 0.8 10*3/uL Normal 0.0-0.8 [facility] Comment on above: Order Comment: Comme nt Every 6 hour while on tPA Performed By: #### T 4F, LIPID, TSH3, BMP #### [facility] [address] [place] [address] [place] Monocytes/100 leukocytes in Blood by Automated countOrdered By: Troy Rizzo on 03-04-2025 Monocytes/100 WBC (Bld) 9.5 % Normal . [facility] Comment on above: Order Comment: Comme nt Every 6 hour while on tPA Performed By: #### T 4F, LIPID, TSH3, BMP #### [facility] [address] [place] [address] [place] Neutrophils [#/volume] in Bl ood by Automated countOrdered By: Troy Rizzo on 03-04-2025 Neutrophils (Bld) [#/Vol] 6.7 10*3/uL Normal 1.8-7.7 [facility] Comment on above: Order Comment: Comme nt Every 6 hour while on tPA Performed By: #### T 4F, LIPID, TSH3, BMP #### [facility] [address] [place] [address] [place] Neutrophils/100 leukocytes i n Blood by Automated countOrdered By: Troy Rizzo on 03-04-2025 Neutrophils/100 WBC (Bld) 75.8 % Normal . [facility] Comment on above: Order Comment: Comme nt Every 6 hour while on tPA Performed By: #### T 4F, LIPID, TSH3, BMP #### [facility] [address] [place] [address] No Panel InformationOrdered By: Troy Rizzo on 03-04-2025 Bedside Glucose Comment Glu2: cleaned meter [facility] No Panel InformationOrdered By: Andres Bryant on 03-04-2025 Pharmacy Creatinine Clearance (Chem 46.29 [facility] Nucleated erythrocytes [Pres ence] in Blood by Automated countOrdered By: Troy Rizzo on 03-04-2025 Nucleated RBC Auto Ql (Bld) 0.0 /100{WBC} 0-0.5 [facility] Platelet mean volume [Entiti c volume] in Blood by Automated countOrdered By: Troy Rizzo on 03-04-2025 Platelet mean volume (Bld) [Entitic vol] 7.5 fL Normal 6.6-10.1 [facility] Comment on above: Order Comment: Comme nt Every 6 hour while on tPA Performed By: #### T 4F, LIPID, TSH3, BMP #### [facility] [address] Platelets [#/volume] in Bloo d by Automated countOrdered By: Troy Rizzo on 03-04-2025 Platelets (Bld) [#/Vol] 273 10*3/uL Normal 150-450 [facility] Comment on above: Order Comment: Comme nt Every 6 hour while on tPA Performed By: #### T 4F, LIPID, TSH3, BMP #### [facility] [address] [place] [address] Potassium [Moles/volume] in Serum or PlasmaOrdered By: Andres Bryant on 03-04-2025 Potassium [Moles/Vol] 3.9 mmol/L Normal 3.5-5.1 [facility] Comment on above: Performed By: #### T 4F, LIPID, TSH3, BMP #### [facility] [address] [place] [address] Prothrombin time (PT)Ordered By: Troy Rizzo on 03-04-2025 PT Coag (PPP) [Time] 15.2 s High 9.0-12.9 [facility] Comment on above: A hematocrit value g reater than 55% may lead to inaccurate results in coagulation testing. Patients having hematocrit values >55% require a special collection tube for coagulation studies. Please contact the laboratory at [phone] for redraw instructions. Order Comment: Comme nt Every 6 hours while on tPA Result Comment: A he matocrit value greater than 55% may lead to inaccurate results in coagulation testing. Patients having hematocrit values >55% require a special collection tube for coagulation studies. Please contact the laboratory at [phone] for redraw instructions. Performed By: #### T 4F, LIPID, TSH3, BMP #### [address] Serum or plasma anion gap de terminationOrdered By: Andres Bryant on 03-04-2025 Anion gap [Moles/Vol] 9.5 mmol/L Normal 6.0-15.0 [facility] Comment on above: Performed By: #### T 4F, LIPID, TSH3, BMP #### [address] Serum or plasma total choles terol/high density lipoprotein (HDL) cholesterol mass ratOrdered By: Andres Bryant on 03-04-2025 Cholesterol.total/Chol esterol in HDL [Mass ratio] 3.6 {ratio} Normal <5.0 [facility] Comment on above: Performed By: #### T 4F, LIPID, TSH3, BMP #### [address] Sodium [Moles/volume] in Ser um or PlasmaOrdered By: Andres Bryant on 03-04-2025 Sodium [Moles/Vol] 141 mmol/L Normal 136-145 [facility] Comment on above: Performed By: #### T 4F, LIPID, TSH3, BMP #### [address] Thyroid Stimulating Hormoneo n 03-04-2025 TSH Qn 1.93 m[IU]/L Normal 0.45-5.33 [facility] Comment on above: Result Comment: PERF ORMED BY: [address] [place] [address] PATHOLOGIST REFINERY SUPERINTENDENT LIZZIE CASTRO M.D. Performed By: #### T 4F, LIPID, TSH3, BMP #### [address] Thyrotropin [Units/volume] i n Serum or PlasmaOrdered By: Any Garcia on 03-04-2025 TSH Qn 1.44 m[IU]/L Normal 0.45-5.33 [facility] Comment on above: Result Comment: PERF ORMED BY: [place] [address] PATHOLOGIST REFINERY SUPERINTENDENT LIZZIE CASTRO M.D. Performed By: #### T 4F, LIPID, TSH3, BMP #### [address] Thyroxine (T4) free [Mass/vo lume] in Serum or PlasmaOrdered By: Andres Bryant on 03-04-2025 Free T4 [Mass/Vol] 0.97 ng/dL Normal 0.61-1.12 [facility] Comment on above: Performed By: #### T 4F, LIPID, TSH3, BMP #### [address] Triglyceride [Mass/volume] i n Serum or PlasmaOrdered By: Andres Bryant on 03-04-2025 Triglyceride [Mass/Vol] 97 mg/dL 0-149 [facility] Comment on above: TRIG ATP III CLASSIF ICATIONTRIG less than 150 mg/dL NormalTRIG 150-199 mg/dL Borderline highTRIG 200-500 mg/dL High TRIG greater than 500 mg/dL Very highStandard traceable to the Center for Disease Conrtrol and Prevention (CDC) test method. Urea nitrogen [Mass/volume] in Serum or PlasmaOrdered By: Andres Bryant on 03-04-2025 Urea nitrogen [Mass/Vol] 27 mg/dL High 7-25 [facility] Comment on above: Performed By: #### T 4F, LIPID, TSH3, BMP #### [place] [address] [place] aPTT in Platelet poor plasma by Coagulation assayOrdered By: Troy Rizzo on 03-04-2025 aPTT Coag (PPP) [Time] 31.7 s 25.1-36.5 [facility] Comment on above: A hematocrit value g reater than 55% may lead to inaccurate results in coagulation testing. Patients having hematocrit values >55% require a special collection tube for coagulation studies. Please contact the laboratory at [phone] for redraw instructions. Blood Urea Nitrogenon 2024 Urea nitrogen [Mass/Vol] 25 mg/dL Normal 7-25 [facility] Comment on above: Performed By: #### T 4F, LIPID, TSH3, BMP #### [facility] [address] [place] [address] [facility] Coagulation Profileon 2024 aPTT Coag (Bld) [Time] 38.2 s High 25.1-36.5 [facility] Comment on above: Order Comment: Comme nt Every 6 hours while on tPA Result Comment: A he matocrit value greater than 55% may lead to inaccurate results in coagulation testing. Patients having hematocrit values >55% require a special collection tube for coagulation studies. Please contact the laboratory at [phone] for redraw instructions. Performed By: #### T 4F, LIPID, TSH3, BMP #### [facility] [address] [place] [address] [place] INR Coag (PPP) [Relative time] 1.9 {INR} Normal [facility] Comment on above: Order Comment: Comme nt Every 6 hours while on tPA Result Comment: INR Therapeutic Range A) Pre- and Peroperative OAT started two weeks before surgery. NOT HIP SURGERY: 1.5 - 2.5 HIP SURGERY: 2 - 3 B) Primary and secondary prevention of venous THROMBOSIS: 2 - 3 C) Active venous thrombosis, pulmonary embolism and prevention of recurrent venous thrombosis: 2 - 3 D) Prevention of arterial thromboembolism including patients with mechanical heart valves: 3 - 4.5 Performed By: #### T 4F, LIPID, TSH3, BMP #### [facility] [address] [place] [address] [facility] PT Coag (PPP) [Time] 21.1 s High 9.0-12.9 [facility] Comment on above: Order Comment: Comme nt Every 6 hours while on tPA Result Comment: A he matocrit value greater than 55% may lead to inaccurate results in coagulation testing. Patients having hematocrit values >55% require a special collection tube for coagulation studies. Please contact the laboratory at [phone] for redraw instructions. Performed By: #### T 4F, LIPID, TSH3, BMP #### [facility] [address] [place] [address] [place] aPTT Coag (Bld) [Time] 70.1 s High 25.1-36.5 [facility] Comment on above: Order Comment: Comme nt Every 6 hours while on tPA Result Comment: A he matocrit value greater than 55% may lead to inaccurate results in coagulation testing. Patients having hematocrit values >55% require a special collection tube for coagulation studies. Please contact the laboratory at [phone] for redraw instructions. Performed By: #### T 4F, LIPID, TSH3, BMP #### [facility] [address] [place] [address] [place] INR Coag (PPP) [Relative time] 2.3 {INR} Normal [facility] Comment on above: Order Comment: Comme nt Every 6 hours while on tPA Result Comment: INR Therapeutic Range A) Pre- and Peroperative OAT started two weeks before surgery. NOT HIP SURGERY: 1.5 - 2.5 HIP SURGERY: 2 - 3 B) Primary and secondary prevention of venous THROMBOSIS: 2 - 3 C) Active venous thrombosis, pulmonary embolism and prevention of recurrent venous thrombosis: 2 - 3 D) Prevention of arterial thromboembolism including patients with mechanical heart valves: 3 - 4.5 Performed By: #### T 4F, LIPID, TSH3, BMP #### [facility] [address] [place] [address] [place] PT Coag (PPP) [Time] 25.3 s High 9.0-12.9 [facility] Comment on above: Order Comment: Comme nt Every 6 hours while on tPA Result Comment: A he matocrit value greater than 55% may lead to inaccurate results in coagulation testing. Patients having hematocrit values >55% require a special collection tube for coagulation studies. Please contact the laboratory at [phone] for redraw instructions. Performed By: #### T 4F, LIPID, TSH3, BMP #### [address] Complete Blood Count Auto Di ffon 03-03-2025 Basophils (Bld) [#/Vol] 0.1 10*3/uL Normal 0.0-0.2 [facility] Comment on above: Order Comment: Comme nt Every 6 hour while on tPA Result Comment: PERF ORMED BY: [place] [address] PATHOLOGIST REFINERY SUPERINTENDENT LIZZIE CASTRO M.D. Performed By: #### T 4F, LIPID, TSH3, BMP #### [address] Basophils/100 WBC (Bld) 0.5 % Normal . [facility] Comment on above: Order Comment: Comme nt Every 6 hour while on tPA Performed By: #### T 4F, LIPID, TSH3, BMP #### [address] Eosinophils (Bld) [#/Vol] 0.1 10*3/uL Normal 0.0-0.45 [facility] Comment on above: Order Comment: Comme nt Every 6 hour while on tPA Performed By: #### T 4F, LIPID, TSH3, BMP #### [address] Eosinophils/100 WBC (Bld) 0.6 % Normal . [facility] Comment on above: Order Comment: Comme nt Every 6 hour while on tPA Performed By: #### T 4F, LIPID, TSH3, BMP #### [address] Erythrocyte distribution width (RBC) [Ratio] 15.0 % High 12.0-14.8 [facility] Comment on above: Order Comment: Comme nt Every 6 hour while on tPA Performed By: #### T 4F, LIPID, TSH3, BMP #### [address] Hematocrit (Bld) [Volume fraction] 30.4 % Low 38.8-50.0 [facility] Comment on above: Order Comment: Comme nt Every 6 hour while on tPA Performed By: #### T 4F, LIPID, TSH3, BMP #### [address] Hemoglobin (Bld) [Mass/Vol] 10.2 g/dL Low 13.0-17.0 [facility] Comment on above: Order Comment: Comme nt Every 6 hour while on tPA Performed By: #### T 4F, LIPID, TSH3, BMP #### [address] Lymphocytes (Bld) [#/Vol] 1.2 10*3/uL Normal 1.00-4.8 [facility] Comment on above: Order Comment: Comme nt Every 6 hour while on tPA Performed By: #### T 4F, LIPID, TSH3, BMP #### [address] Lymphocytes/100 WBC (Bld) 11.4 % Normal . [facility] Comment on above: Order Comment: Comme nt Every 6 hour while on tPA Performed By: #### T 4F, LIPID, TSH3, BMP #### [address] MCH (RBC) [Entitic mass] 30.2 pg Normal 27.5-35.2 [facility] Comment on above: Order Comment: Comme nt Every 6 hour while on tPA Performed By: #### T 4F, LIPID, TSH3, BMP #### [address] MCV (RBC) [Entitic vol] 89.8 fL Normal 83.5-101 [facility] Comment on above: Order Comment: Comme nt Every 6 hour while on tPA Performed By: #### T 4F, LIPID, TSH3, BMP #### [address] Mean Corpuscular HGB Conc 33.6 g/dL Normal 32.5-35.6 [facility] Comment on above: Order Comment: Comme nt Every 6 hour while on tPA Performed By: #### T 4F, LIPID, TSH3, BMP #### [facility] [address] [place] [address] [place] Monocytes (Bld) [#/Vol] 1.1 10*3/uL High 0.0-0.8 [facility] Comment on above: Order Comment: Comme nt Every 6 hour while on tPA Performed By: #### T 4F, LIPID, TSH3, BMP #### [facility] [address] Monocytes/100 WBC (Bld) 10.2 % Normal . [facility] Comment on above: Order Comment: Comme nt Every 6 hour while on tPA Performed By: #### T 4F, LIPID, TSH3, BMP #### [place] [address] [place] Neutrophils (Bld) [#/Vol] 8.1 10*3/uL High 1.8-7.7 [facility] Comment on above: Order Comment: Comme nt Every 6 hour while on tPA Performed By: #### T 4F, LIPID, TSH3, BMP #### [facility] [address] [place] [address] [place] Neutrophils/100 WBC (Bld) 77.3 % Normal . [facility] Comment on above: Order Comment: Comme nt Every 6 hour while on tPA Performed By: #### T 4F, LIPID, TSH3, BMP #### [facility] [address] [place] [address] [place] NRBC% 0.0 /100{WBC} Normal 0-0.5 [facility] Comment on above: Order Comment: Comme nt Every 6 hour while on tPA Performed By: #### T 4F, LIPID, TSH3, BMP #### [facility] [address] [place] [address] [place] Platelet mean volume (Bld) [Entitic vol] 7.6 fL Normal 6.6-10.1 [facility] Comment on above: Order Comment: Comme nt Every 6 hour while on tPA Performed By: #### T 4F, LIPID, TSH3, BMP #### [address] Platelets (Bld) [#/Vol] 303 10*3/uL Normal 150-450 [facility] Comment on above: Order Comment: Comme nt Every 6 hour while on tPA Performed By: #### T 4F, LIPID, TSH3, BMP #### [address] RBC (Bld) [#/Vol] 3.39 10*6/uL Low 3.90-5.60 [facility] Comment on above: Order Comment: Comme nt Every 6 hour while on tPA Performed By: #### T 4F, LIPID, TSH3, BMP #### [address] WBC (Bld) [#/Vol] 10.5 10*3/uL Normal 4.1-10.5 [facility] Comment on above: Order Comment: Comme nt Every 6 hour while on tPA Performed By: #### T 4F, LIPID, TSH3, BMP #### [address] White Blood Count 10.5 [CFU]/mL Normal 4.1-10.5 [facility] Comment on above: Order Comment: Comme nt Every 6 hour while on tPA Performed By: #### T 4F, LIPID, TSH3, BMP #### [address] Basophils (Bld) [#/Vol] 0.1 10*3/uL Normal 0.0-0.2 [facility] Comment on above: Order Comment: Comme nt Every 6 hour while on tPA Result Comment: PERF ORMED BY: [place] [address] PATHOLOGIST REFINERY SUPERINTENDENT LIZZIE CASTRO M.D. Performed By: #### T 4F, LIPID, TSH3, BMP #### [address] Basophils/100 WBC (Bld) 0.6 % Normal . [facility] Comment on above: Order Comment: Comme nt Every 6 hour while on tPA Performed By: #### T 4F, LIPID, TSH3, BMP #### [address] Eosinophils (Bld) [#/Vol] 0.1 10*3/uL Normal 0.0-0.45 [facility] Comment on above: Order Comment: Comme nt Every 6 hour while on tPA Performed By: #### T 4F, LIPID, TSH3, BMP #### [address] Eosinophils/100 WBC (Bld) 1.7 % Normal . [facility] Comment on above: Order Comment: Comme nt Every 6 hour while on tPA Performed By: #### T 4F, LIPID, TSH3, BMP #### [address] Erythrocyte distribution width (RBC) [Ratio] 14.7 % Normal 12.0-14.8 [facility] Comment on above: Order Comment: Comme nt Every 6 hour while on tPA Performed By: #### T 4F, LIPID, TSH3, BMP #### [address] Hematocrit (Bld) [Volume fraction] 30.5 % Low 38.8-50.0 [facility] Comment on above: Order Comment: Comme nt Every 6 hour while on tPA Performed By: #### T 4F, LIPID, TSH3, BMP #### [address] Hemoglobin (Bld) [Mass/Vol] 10.3 g/dL Low 13.0-17.0 [facility] Comment on above: Order Comment: Comme nt Every 6 hour while on tPA Performed By: #### T 4F, LIPID, TSH3, BMP #### [address] Lymphocytes (Bld) [#/Vol] 1.5 10*3/uL Normal 1.00-4.8 [facility] Comment on above: Order Comment: Comme nt Every 6 hour while on tPA Performed By: #### T 4F, LIPID, TSH3, BMP #### [address] Lymphocytes/100 WBC (Bld) 17.1 % Normal . [facility] Comment on above: Order Comment: Comme nt Every 6 hour while on tPA Performed By: #### T 4F, LIPID, TSH3, BMP #### [address] MCH (RBC) [Entitic mass] 29.9 pg Normal 27.5-35.2 [facility] Comment on above: Order Comment: Comme nt Every 6 hour while on tPA Performed By: #### T 4F, LIPID, TSH3, BMP #### [address] MCV (RBC) [Entitic vol] 89.0 fL Normal 83.5-101 [facility] Comment on above: Order Comment: Comme nt Every 6 hour while on tPA Performed By: #### T 4F, LIPID, TSH3, BMP #### [address] Mean Corpuscular HGB Conc 33.7 g/dL Normal 32.5-35.6 [facility] Comment on above: Order Comment: Comme nt Every 6 hour while on tPA Performed By: #### T 4F, LIPID, TSH3, BMP #### [address] Monocytes (Bld) [#/Vol] 1.0 10*3/uL High 0.0-0.8 [facility] Comment on above: Order Comment: Comme nt Every 6 hour while on tPA Performed By: #### T 4F, LIPID, TSH3, BMP #### [address] Monocytes/100 WBC (Bld) 11.0 % Normal . [facility] Comment on above: Order Comment: Comme nt Every 6 hour while on tPA Performed By: #### T 4F, LIPID, TSH3, BMP #### [address] Neutrophils (Bld) [#/Vol] 6.1 10*3/uL Normal 1.8-7.7 [facility] Comment on above: Order Comment: Comme nt Every 6 hour while on tPA Performed By: #### T 4F, LIPID, TSH3, BMP #### [address] Neutrophils/100 WBC (Bld) 69.6 % Normal . [facility] Comment on above: Order Comment: Comme nt Every 6 hour while on tPA Performed By: #### T 4F, LIPID, TSH3, BMP #### [address] NRBC% 0.0 /100{WBC} Normal 0-0.5 [facility] Comment on above: Order Comment: Comme nt Every 6 hour while on tPA Performed By: #### T 4F, LIPID, TSH3, BMP #### [address] Platelet mean volume (Bld) [Entitic vol] 7.3 fL Normal 6.6-10.1 [facility] Comment on above: Order Comment: Comme nt Every 6 hour while on tPA Performed By: #### T 4F, LIPID, TSH3, BMP #### [place] [address] [place] Platelets (Bld) [#/Vol] 350 10*3/uL Normal 150-450 [facility] Comment on above: Order Comment: Comme nt Every 6 hour while on tPA Performed By: #### T 4F, LIPID, TSH3, BMP #### [place] [address] [place] RBC (Bld) [#/Vol] 3.43 10*6/uL Low 3.90-5.60 [facility] Comment on above: Order Comment: Comme nt Every 6 hour while on tPA Performed By: #### T 4F, LIPID, TSH3, BMP #### [place] [address] [place] WBC (Bld) [#/Vol] 8.8 10*3/uL Normal 4.1-10.5 [facility] Comment on above: Order Comment: Comme nt Every 6 hour while on tPA Performed By: #### T 4F, LIPID, TSH3, BMP #### [address] White Blood Count 8.8 [CFU]/mL Normal 4.1-10.5 [facility] Comment on above: Order Comment: Comme nt Every 6 hour while on tPA Performed By: #### T 4F, LIPID, TSH3, BMP #### [address] Creatinineon 03-03-2025 Creatinine [Mass/Vol] 1.89 mg/dL High 0.70-1.30 [facility] Comment on above: Performed By: #### T 4F, LIPID, TSH3, BMP #### [address] Creatinine Clr Calc Pharmacy 47.81 Normal [facility] Comment on above: Result Comment: PERF ORMED BY: [place] [address] PATHOLOGIST REFINERY SUPERINTENDENT LIZZIE CASTRO M.D. Performed By: #### T 4F, LIPID, TSH3, BMP #### [address] GFR/1.73 sq M.predicted MDRD (S/P/Bld) [Vol rate/Area] 37.718 mL/min/{1.73_m2} Normal [facility] Comment on above: Performed By: #### T 4F, LIPID, TSH3, BMP #### [address] ECG 12 lead ECGon 03-03-2025 ECG 12 lead ECG [facility] Main [place] [address] [place] [address] Electrocardiograph Report Signed Patient: Evelio Irene MR#: [id number] : 1955 Acct:[id number] Age/Sex: 69 / M ADM Date: 03/03/25 Loc: Room: [address] [place] [address] Type: ADM IN Attending Dr: Troy Rizzo MD Ordering Provider: Andres Bryant DO Date of Service: 03/03/25 ECG/ECG 12 lead ECG: prn ekg Copies to: Test Reason : Blood Pressure : 180/79 mmHG Vent. Rate : 76 BPM Atrial Rate : 92 BPM P-R Int : 184 ms QRS Dur : 142 ms QT Int : 440 ms P-R-T Axes : * -83 74 degrees QTcB Int : 495 ms Sinus rhythm with blocked premature atrial complexes Right bundle branch block Minimal voltage criteria for LVH, may be normal variant Abnormal ECG Confirmed by Yady Coreas ([id number]) on 03/04/2025 4:59:15 PM Referred By: Electronically Signed By: Yady Coreas Transcribed By: MUS Signed By Yady Coreas MD [id number] Normal [facility] Fibrinogenon 03-03-2025 Fibrinogen 187 mg/dL Low 200-393 [facility] Comment on above: Order Comment: Comme nt Every 6 hours while on tPA Result Comment: A matocrit value greater than 55% may lead to inaccurate results in coagulation testing. Patients having hematocrit values >55% require a special collection tube for coagulation studies. Please contact the laboratory at [phone] for redraw instructions. PERFORMED BY: [place] [address] PATHOLOGIST REFINERY SUPERINTENDENT LIZZIE CASTRO M.D. Performed By: #### T 4F, LIPID, TSH3, BMP #### [facility] [address] [place] [address] Fibrinogen 399 mg/dL High 200-393 [facility] Comment on above: Order Comment: Comme nt Every 6 hours while on tPA Result Comment: A he matocrit value greater than 55% may lead to inaccurate results in coagulation testing. Patients having hematocrit values >55% require a special collection tube for coagulation studies. Please contact the laboratory at [phone] for redraw instructions. PERFORMED BY: [place] [address] PATHOLOGIST REFINERY SUPERINTENDENT LIZZIE CASTRO M.D. Performed By: #### T 4F, LIPID, TSH3, BMP #### [facility] [address] [place] [id number] [facility] Glucose Poct Glucometerson 0 03-03-2025 Glucose [Mass/Vol] 73 mg/dL Normal [facility] Comment on above: Result Comment: [facility] [place][note 2] Glucose Reference Range is dependent on time and content of last meal. Glucose of more than 200 mg/dL in a nonstressed, ambulatory subject supports the diagnosis of Diabetes Mellitus. PERFORMED BY: [place] [address] PATHOLOGIST REFINERY SUPERINTENDENT LIZZIE CASTRO M.D. Performed By: #### G LULS #### Point of Care testing , Glucose [Mass/Vol] 65 mg/dL Normal [facility] Comment on above: Result Comment: [facility] [place][note 2] Glucose Reference Range is dependent on time and content of last meal. Glucose of more than 200 mg/dL in a nonstressed, ambulatory subject supports the diagnosis of Diabetes Mellitus. PERFORMED BY: [place] [address] PATHOLOGIST REFINERY SUPERINTENDENT LIZZIE CASTRO M.D. Performed By: #### G LULS #### Point of Care testing , Type and Screenon 03-03-2025 ABO and Rh group Nom (Bld) Blood group O Rh(D) positive Normal [facility] Comment on above: Result Comment: PERF ORMED BY: [place] [address] PATHOLOGIST REFINERY SUPERINTENDENT LIZZIE CASTRO M.D. Ambulatory Visit Summaryon 0 03-01-2025 Ambulatory Visit Summary Ambulatory Visit Summary EVELIO IRENE :1955 Visit Date:03/01/2025 Ambulatory Visit Instructions Your Diagnosis Bladder wall thickening Ureteritis Elevated PSA H/O renal cell cancer BPH with urinary obstruction Family history of prostate cancer Anticoagulated Tests Performed Lower Extremity Venous Duplex US Bilateral -- Results Pending -- Please visit your patient portal for your results or contact your primary care physician. Your Care Team Attending Physician - EDY FOX, Clifton Reilly Primary Care Physician - LUCIANA FOX, NINO Elizondo This Is Your Medications List doxycycline (doxycycline hyclate 100 mg Cap) finasteride (finasteride 5 mg Tab) Contact prescribing physician if questions or concerns acetaminophen-hydrocodone (acetaminophen-hydrocodone 325 mg-5 mg oral tablet) ciprofloxacin (ciprofloxacin 500 mg Tab) insulin glargine-lixisenatide (Soliqua 100/33 subcutaneous solution) insulin lispro (HumaLOG KwikPen 100 units/mL injectable solution) lisinopril (lisinopril 5 mg Tab) rivaroxaban (Xarelto Starter Pack 15 mg-20 mg oral tablet) terazosin (terazosin 5 mg Cap) torsemide (torsemide 20 mg Tab) Procedures Performed Transrectal biopsy of prostate using ultrasound (US) guidance (06/22/2014), Transrectal biopsy of prostate using ultrasound (US) guidance (03/16/2014), Nephrectomy (10/16/2012). Discharge Vitals Temperature (Temporal Artery) 37 ???C Heart Rate (Peripheral) 70 Respiratory Rate 16 Blood Pressure 138/78 Height 185 cm Height 73 in Weight 112 kg Weight 246.917 lb BMI 32.72 What to do next Scheduled Follow-Up Appointments Saturday 9:15 AM EST With: Clifton SNOW MD Where: [facility] [address] [place] [address]- You Need to Schedule the Following Appointments Follow Up with Clifton SNOW MD, URL When: Where: [address] [place] [address] Medications What How Much When Why Instructions New doxycycline (doxycycline hyclate 100 mg Cap) 1 Capsules By Mouth 2 times a day Ureteritis Duration: 10 Days Pickup at [facility]/pharmacy #[id number] Unchanged finasteride (finasteride 5 mg Tab) 1 Tablets By Mouth Every day Unchanged acetaminophen-hydrocodone (acetaminophen-hydrocodone 325 mg-5 mg oral tablet) 1 Tablets Contact prescribing physician if questions or concerns Unchanged ciprofloxacin (ciprofloxacin 500 mg Tab) 1 Tablets Contact prescribing physician if questions or concerns Unchanged insulin glargine-lixisenatide (Soliqua 100/ 33 subcutaneous solution) Subcutaneous Contact prescribing physician if questions or concerns Unchanged insulin lispro (HumaLOG KwikPen 100 units/ mL injectable solution) Contact prescribing physician if questions or concerns Unchanged lisinopril (lisinopril 5 mg Tab) 1 Tablets By Mouth Every day Contact prescribing physician if questions or concerns Unchanged rivaroxaban (Xarelto Starter Pack 15 mg-20 mg oral tablet) See instructions Contact prescribing physician if questions or concerns Unchanged terazosin (terazosin 5 mg Cap) 1 Capsules By Mouth Once a day (at bedtime) Contact prescribing physician if questions or concerns Unchanged torsemide (torsemide 20 mg Tab) 1 Tablets Contact prescribing physician if questions or concerns Pharmacy Information [facility]/pharmacy #[id number]: [address], [place] [id number] [phone] Allergies No Known Allergies Problems Ongoing - Any problem that you are currently receiving treatment for. Anticoagulated Bladder wall thickening BPH with urinary obstruction Elevated PSA Family history of prostate cancer Glucosuria H/O renal cell cancer Hesitancy Hyperlipidemia Protein in urine Pulmonary embolism Renal mass Type 2 diabetes mellitus Ureteritis Weak urinary stream Historical - Any problem [...] choosing us for your care. Education Materials Urinary Tract Infection, Adult A urinary tract infection (UTI) is an infection of any part of the urinary tract. The urinary tract includes the kidneys, ureters, bladder, and urethra. These organs make, store, and get rid of urine in the body. An upper UTI affects the ureters and kidneys. A lower UTI affects the bladder and urethra. What are the causes? Most urinary tract infections are caused by bacteria in your genital area around your urethra, where urine leaves your body. These bacteria grow and cause inflammation of your urinary tract. What increases the risk? You are more likely to develop this condi (more content not included)... Normal [facility] Urology Office/Clinic Noteon 03-01-2025 Urology Office/Clinic Note Urology Office/Clinic Note Chief Complaint F/u with CT HPI Staff 8 month f/u with CT Dx: elevated PSA, h/o renal cell cancer and BPH with urinary obstruction. Finasteride 5mg qd and Terazosin 5mg qd PSA due in June 2025 IPSS score today is 12. Nocturia x1. Intermittency and weak stream than half the time. Denies any dysuria, visible blood or urinary leakage. History of Present Illness Tests reviewed: reviewed UA, CT scan I have reviewed the previous health record information and history for this patient from Dr. Snow. I have reviewed and verified the staff HPI to be accurate for this encounter. Review of Systems PHQ Score Initial [...] Physical Exam Vitals & Measurements T: 37 ???C(Temporal Artery) HR: 70(Peripheral) RR: 16 BP: 138/78 HT: 185 cm HT: 73 in WT: 112 kg WT: 246.917 lb BMI: 32.72 General Appearance: alert, no distress, well nourished, well developed male. Assessment/Plan 1. Bladder wall thickening (N32.89: Other specified disorders of bladder) CT AP wo con 02/22/25 NOMS - R kidney surgically absent. No renal stones or hydro. Mild L perinephric stranding is nonspecific. Thickening of distal L ureter with periureteral fat stranding. Diffuse wall thickening of bladder. Mild perivesicular fat stranding. Reviewed imaging results. States his PCP rx'd Cipro for 5 days. UA neg. No F/S/C. No burning with urination. Denies gross hematuria. Recommended cystoscopy to further evaluate. Risks/benefits discussed. Also recommended abx to prevent worsening infection. -Take doxycycline 100mg x 10 days. Rx sent to [facility]. -Will schedule cystoscopy. The risks and benefits for cystoscopy have been discussed. The risks include bleeding, infection, and irritation of the bladder and urinary channel, among others. The patient, after being informed of procedural details and after questions have been answered, wishes to proceed. Full informed consent has been obtained. Will order Local anesthesia. 2. Ureteritis (N28.89: Other specified disorders of kidney and ureter) See #1. 3. Elevated PSA (R97.20: Elevated prostate specific antigen [PSA]) PSA 04/06/19 - 2.54 (5.08) 12/12/21 - 1.32 (2.64) 12/29/22 - 1.86 (3.72) 01/03/24 - 1.54 (3.08) S/p neg TRUS/bx 2013. [1] -PSA due 06/2025 4. H/O renal cell cancer (Z85.528: Personal history of other malignant neoplasm of kidney) S/p R nephrectomy 2012. CXR 12/29/22 [facility] - no acute abnormality. CT AP wo con 12/29/22 [facility] - no acute abnormality. -CT AP wo con and CXR due 12/2025 [2] 5. BPH with urinary obstruction (N40.1: Benign prostatic hyperplasia with lower urinary tract symptoms) CT AP wo con 02/22/25 [facility] - Enlarged prostate. IPSS 12. Taking Finasteride 5mg qd and Terazosin 5mg qd (believes primary care prescribed med). Not voicing any urinary habit complaints. -Cont Finasteride and Terazsoin 6. Family history of prostate cancer (Z80.42: Family history of malignant neoplasm of prostate) Brother. 7. Anticoagulated (Z79.01: [facility] (current) use of anticoagulants) Started Xarelto for DVT 2 wks ago. Has IVC filter, placed many yrs ago. Shares he was on blood thinners for an extended period after first DVT (around time of filter placement) and inquired implications for this, so PCP had tried stopping these a few months ago. Advised pt to remain on Xarelto. Also discussed workup with hematology. States he was told he has a possible thrombophilia. Recommended pt to follow up with hematology and repeat imaging to monitor for decrease in clotting. -Referral to hematology -Schedule Doppler US Follow-up With When Contact Information EDY FOX, Clifton Reilly, URL [address] [place] [address] [place] [address] Additional Instructions: sched cysto Patient Education Urinary Tract Infection, Adult Cystoscopy I, Janice Hammonds, personally scribed for Dr. Snow on 03/01/2025 10:23:29. . Documentation recorded by the scribeJanice, accurately reflects the services(s) I performed and decisions made by me. Authenticated by Dr. Snow on 03/01/2025 10:26:49. Problem List/Past Medical History Ongoing Anticoagulated Bladder wall thickening BPH with urinary obstruction Elevated PSA Family history of prostate cancer Glucosuria H/O renal cell cancer Hesitancy Hyperlipidemia Protein in urine Pulmonary embolism Renal mass Type 2 diabetes mellitus Ureteritis Weak urinary (more content not included)... Normal [facility] Comment on above: Result Comment: Elec tronically Signed By: Clifton SNOW MD R\.br\Date and Time Signed: 03/01/25 10:26 EDT\.br\Electronically Co-Signed By: Janice Hammonds\.br\Date and Time Co-Signed: 03/01/25 10:23 EDT ALBUMIN, RANDOM URINE W/CREA TININEon 02-25-2025 ALBUMIN, URINE 5.1 mg/dL Normal See Note: [facility] Comment on above: Result Comment: Refe rence Range: Reference Range Not established Performed By: #### 6 517, 7909 #### [facility] [address], [address] [place] [address] Hydro Generation Manager: Nathanael Muñoz MD ALBUMIN/CREATININE RATIO, RANDOM URINE 142 mg/g creat High <30 [facility] Comment on above: Result Comment: The ADA defines abnormalities in albumin excretion as follows: Albuminuria Category Result (mg/g creatinine) Normal to Mildly increased <30 Moderately increased 30-299 Severely increased > OR = 300 The ADA recommends that at least two of three specimens collected within a 3-6 month period be abnormal before considering a patient to be within a diagnostic category. Performed By: #### 6 517, 7909 #### [facility] [address], [address] [place] [address] Hydro Generation Manager: Nathanael Muñoz MD Creatinine (U) [Mass/Vol] 36 mg/dL Normal 20-320 [facility] Comment on above: Performed By: #### 6 517, 7909 #### [facility] [address], [address] [place] [address] Hydro Generation Manager: Nathanael Muñoz MD Reminderson 02-25-2025 Reminders Reminders From: Deanna Rosas To: VY Romo Snow; Sent: 06/26/2024 11:45:55 EST Show up: 10/06/2024 11:45:00 EDT Subject: ct scan Due Date/Time: 11/02/2024 11:45:00 EDT Reminder/Recall Pt needs Ct scan Abd/Pelvis sched for December 2024 Orders faxed to [facility] today and pt was notified. Will monitor [facility] has order and Pt office appointment is now 06/28/25. Pt had CT abd/pelvis Feb 2025. Normal [facility] URINALYSIS REFLEXon 02-26-20 Appearance (U) CLEAR Normal CLEAR [facility] Comment on above: Performed By: #### 6 517, 7909 #### [facility] [address], [address] [place] [address] Hydro Generation Manager: Nathanael Muñoz MD Bilirubin Ql (U) Negative Normal NEGATIVE [facility] Comment on above: Performed By: #### 6 517, 7909 #### [facility] [place] [address] Hydro Generation Manager: Nathanael Muñoz MD Color (U) YELLOW Normal YELLOW [facility] Comment on above: Performed By: #### 6 517, 7909 #### [facility] [place] [address] Hydro Generation Manager: Nathanael Muñoz MD Glucose Ql (U) Negative Normal NEGATIVE [facility] Comment on above: Performed By: #### 6 517, 7909 #### [facility] of [address] [place] [address] Hydro Generation Manager: Nathanael Muñoz MD Ketones Ql (U) Negative Normal NEGATIVE [facility] Comment on above: Performed By: #### 6 517, 7909 #### [facility] [address], [address] [place] [address] Hydro Generation Manager: Nathanael Muñoz MD Leukocyte esterase Test strip Ql (U) Negative Normal NEGATIVE [facility] Comment on above: Performed By: #### 6 517, 7909 #### [facility] [place] [address] Hydro Generation Manager: Nathanael Muñoz MD Nitrite Ql (U) Negative Normal NEGATIVE [facility] Comment on above: Performed By: #### 6 517, 7909 #### [facility] [place] [address] Hydro Generation Manager: Nathanael Muñoz MD OCCULT BLOOD Negative Normal NEGATIVE [facility] Comment on above: Performed By: #### 6 517, 7909 #### [facility] [place] [address] Hydro Generation Manager: Nathanael Muñoz MD pH (U) 5.5 [pH] Normal 5.0-8.0 [facility] Comment on above: Performed By: #### 6 517, 7909 #### [facility] [place] [address] Hydro Generation Manager: Nathanael Muñoz MD Protein Ql (U) Negative Normal NEGATIVE [facility] Comment on above: Performed By: #### 6 517, 7909 #### [facility] [place] [address] Hydro Generation Manager: Nathanael Muñoz MD Specific gravity (U) [Rel density] 1.009 Normal 1.001-1.03 5 [facility] Comment on above: Performed By: #### 6 517, 7909 #### [facility] [place] [address] Hydro Generation Manager: Nathanael Muñoz MD CT ABDOMEN PELVIS WO IV CONT Ricky 02-22-2025 CT ABDOMEN PELVIS WO IV CONTRAST EXAM: CT ABDOMEN PELVIS WO IV CONTRAST [...] bladder, thickening of the left ureter, and left-sided perinephric stranding is concerning for cystitis/pyelonephritis. Enlarged prostate. Colonic diverticulosis without diverticulitis. ELECTRONICALLY SIGNED BY: Braulio Monroe, DO Normal Not Available CBC (INCLUDES DIFF/PLT)on Basophils (Bld) [#/Vol] 0.032 10*3/uL Normal 0-200 [facility] Comment on above: Performed By: #### 1 0231, 1211 #### [facility] [address] [address] Hydro Generation Manager: Nathanael Muñoz MD Basophils/100 WBC (Bld) 0.3 % Normal [facility] Comment on above: Performed By: #### 1 0231, 0750 #### [facility] [address] [address] Hydro Generation Manager: Nathanael Muñoz MD Eosinophils (Bld) [#/Vol] 0.105 10*3/uL Normal 15-500 [facility] Comment on above: Performed By: #### 1 0231, 6399 #### [facility] of [place] [address] Hydro Generation Manager: Nathanael Muñoz MD Eosinophils/100 WBC (Bld) 1.0 % Normal [facility] Comment on above: Performed By: #### 1 0231, 6399 #### [facility] of [place] [address] Hydro Generation Manager: Nathanael Muñoz MD Erythrocyte distribution width (RBC) [Ratio] 14.2 % Normal 11.0-15.0 [facility] Comment on above: Performed By: #### 1 0231, 6399 #### [facility] of [place] [address] Hydro Generation Manager: Nathanael Muñoz MD Hematocrit (Bld) [Volume fraction] 35.6 % Low 38.5-50.0 [facility] Comment on above: Performed By: #### 1 0231, 6399 #### [facility] of [place] [address] Hydro Generation Manager: Nathanael Muñoz MD Hemoglobin (Bld) [Mass/Vol] 11.3 g/dL Low 13.2-17.1 [facility] Comment on above: Performed By: #### 1 0231, 6399 #### [facility] of [place] [address] Hydro Generation Manager: Nathanael Muñoz MD Lymphocytes (Bld) [#/Vol] 1.502 10*3/uL Normal 850-3900 [facility] Comment on above: Performed By: #### 1 0231, 6399 #### [facility] of [place] [address] Hydro Generation Manager: Nathanael Muñoz MD Lymphocytes/100 WBC (Bld) 14.3 % Normal [facility] Comment on above: Performed By: #### 1 023, 6399 #### [facility] of [address], [address] [place] [address] Hydro Generation Manager: Nathanael Muñoz MD MCH (RBC) [Entitic mass] 29.7 pg Normal 27.0-33.0 [facility] Comment on above: Performed By: #### 1 230, 6399 #### [facility] of [address], [address] [place] [address] Hydro Generation Manager: Nathanael Muñoz MD MCHC (RBC) [Mass/Vol] 31.7 g/dL Low 32.0-36.[address] [facility] Comment on above: Result Comment: For adults, a slight decrease in the calculated MCHC value (in the range of 30 to 32 g/dL) is most likely not clinically significant; however, it should be interpreted with caution in correlation with other red cell parameters and the patient's clinical condition. Performed By: #### 1 023, 6399 #### [facility] of [address], [address] [place] [address] Hydro Generation Manager: Nathanael Muñoz MD MCV (RBC) [Entitic vol] 93.7 fL Normal 80.0-100.0 [facility] Comment on above: Performed By: #### 1 023, 6399 #### [facility] of [place] [address] Hydro Generation Manager: Nathanael Muñoz MD Monocytes (Bld) [#/Vol] 0.893 10*3/uL Normal 200-950 [facility] Comment on above: Performed By: #### 1 023, 6399 #### [facility] of [address], [address] [place] [address] Hydro Generation Manager: Nathanael Muñoz MD Monocytes/100 WBC (Bld) 8.5 % Normal [facility] Comment on above: Performed By: #### 1 023, 6399 #### [facility] of [address], [address] [place] [address] Hydro Generation Manager: Nathanael Muñoz MD Neutrophils (Bld) [#/Vol] 7.97 10*3/uL High 4217-4114 [facility] Comment on above: Performed By: #### 1 0231, 6399 #### [facility] of [place] [address] Hydro Generation Manager: Nathanael Muñoz MD Neutrophils/100 WBC (Bld) 75.9 % Normal [facility] Comment on above: Performed By: #### 1 0231, 6399 #### [facility] of [place] [address] Hydro Generation Manager: Nathanael Muñoz MD Platelet mean volume (Bld) [Entitic vol] 10.6 fL Normal 7.5-12.5 [facility] Comment on above: Performed By: #### 1 0231, 6399 #### [facility] of [place] [address] Hydro Generation Manager: Nathanael Muñoz MD Platelets (Bld) [#/Vol] 139 10*3/uL Low 140-400 [facility] Comment on above: Performed By: #### 1 0231, 6399 #### [facility] of [place] [address] Hydro Generation Manager: Nathanael Muñoz MD RBC (Bld) [#/Vol] 3.80 10*6/uL Low 4.20-5.80 [facility] Comment on above: Performed By: #### 1 0231, 6399 #### [facility] of [place] [address] Hydro Generation Manager: Nathanael Muñoz MD WBC (Bld) [#/Vol] 10.5 10*3/uL Normal 3.8-10.8 [facility] Comment on above: Performed By: #### 1 0231, 6399 #### [facility] of [place] [address] Hydro Generation Manager: Nathanael Muñoz MD COMPREHENSIVE METABOLIC PANE [facility] 02-10-2025 Albumin [Mass/Vol] 4.5 g/dL Normal 3.6-5.1 [facility] Comment on above: Performed By: #### 1 0231, 6399 #### [facility] of [address], [address] [place] [address] Hydro Generation Manager: Nathanael Muñoz MD Albumin/Globulin [Mass ratio] 1.6 {ratio} Normal 1.0-2.5 [facility] Comment on above: Performed By: #### 1 0231, 6399 #### [facility] of [address], [address] [place] [address] Hydro Generation Manager: Nathanael Muñoz MD ALP [Catalytic activity/Vol] 51 U/L Normal 35-144 [facility] Comment on above: Performed By: #### 1 0231, 6399 #### [facility] of [address], [address] [place] [address] Hydro Generation Manager: Nathanael Muñoz MD ALT [Catalytic activity/Vol] 15 U/L Normal 9-46 [facility] Comment on above: Performed By: #### 1 0231, 6399 #### [facility] of [address], [address] [place] [address] Hydro Generation Manager: Nathanael Muñoz MD AST [Catalytic activity/Vol] 18 U/L Normal 10-35 [facility] Comment on above: Performed By: #### 1 0231, 6399 #### [facility] of [address], [address] [place] [address] Hydro Generation Manager: Nathanael Muñoz MD Bilirubin [Mass/Vol] 0.6 mg/dL Normal 0.2-1.2 [facility] Comment on above: Performed By: #### 1 0231, 6399 #### [facility] of [address], [address] [place] [address] Hydro Generation Manager: Nathanael Muñoz MD Calcium [Mass/Vol] 9.3 mg/dL Normal 8.6-10.3 [facility] Comment on above: Performed By: #### 1 0231, 6399 #### [facility] of [address], [address] [place] [address] Hydro Generation Manager: Nathanael Muñoz MD Chloride [Moles/Vol] 106 mmol/L Normal 98-110 [facility] Comment on above: Performed By: #### 1 1, 6399 #### [facility] [place] [address] Hydro Generation Manager: Nathanael Muñoz MD CO2 [Moles/Vol] 25 mmol/L Normal 20-32 [facility] Comment on above: Performed By: #### 1 023, 6399 #### [facility] [place] [address] Hydro Generation Manager: Nathanael Muñoz MD Creatinine [Mass/Vol] 2.17 mg/dL High 0.70-1.[address] [facility] Comment on above: Performed By: #### 1 023, 6399 #### [facility] [place] [address] Hydro Generation Manager: Nathanael Muñoz MD GFR/1.73 sq M.predicted among non-blacks MDRD (S/P/Bld) [Vol rate/Area] 32 mL/min/{1.73_m2} Low > OR = 60 [facility] Comment on above: Performed By: #### 1 023, 6399 #### [facility] [place] [address] Hydro Generation Manager: Nathanael Muñoz MD Globulin (S) [Mass/Vol] 2.8 g/dL Normal 1.9-3.7 [facility] Comment on above: Performed By: #### 1 023, 6399 #### [facility] [place] [address] Hydro Generation Manager: Nathanael Muñoz MD Glucose [Mass/Vol] 166 mg/dL High 65-99 [facility] Comment on above: Result Comment: Fasting reference interval For someone without known diabetes, a glucose value >125 mg/dL indicates that they may have diabetes and this should be confirmed with a follow-up test. Performed By: #### 1 023, 6399 #### [facility] [address] [place] [address] Hydro Generation Manager: Nathanael Muñoz MD Potassium [Moles/Vol] 5.0 mmol/L Normal 3.5-5.[address] [facility] Comment on above: Performed By: #### 1 0231, 6399 #### [facility] [address], [address] [place] [address] Hydro Generation Manager: Nathanael Muñoz MD Protein [Mass/Vol] 7.3 g/dL Normal 6.1-8.1 [facility] Comment on above: Performed By: #### 1 0231, 6399 #### [facility] [place] [address] Hydro Generation Manager: Nathanael Muñoz MD Sodium [Moles/Vol] 138 mmol/L Normal 135-146 [facility] Comment on above: Performed By: #### 1 0231, 6399 #### [facility] [place] [address] Hydro Generation Manager: Nathanael Muñoz MD Urea nitrogen [Mass/Vol] 40 mg/dL High 7-25 [facility] Comment on above: Performed By: #### 1 0231, 6399 #### [facility] [place] [address] Hydro Generation Manager: Nathanael Muñoz MD Urea nitrogen/Creatinine [Mass ratio] 18 mg/mg Normal 6-22 [facility] Comment on above: Performed By: #### 1 0231, 6399 #### [facility] [place] [address] Hydro Generation Manager: Nathanael Muñoz MD XR LUMBAR SPINE 2 OR [address] [address] XRay Report Signed Patient: EVELIO IRENE MR#: [id number] : 1955 Acct:[id number] Age/Sex: 69 / M ADM Date: 02/09/25 Loc: RAD Attending Dr: NINO HAMMONDS Ordering Physician: NINO HAMMONDS Date of Service: 02/09/25 Procedure(s): XR lumbar spine 2-3V Accession Number(s): [id number] cc: NINO HAMMONDS [place] [id number] Patient Name: EVELIO IRENE MRN: [facility]:[id number] date: 1955 Sex: M Assigned Patient Location: RAD Current Patient Location: [facility] Accession/Order Number: [id number] Exam Date: 02/09/2025 15:08 Report Date: 02/09/2025 [...] Jr., D.O. 02/09/2025 3:09 PM Dictation Location: [place] [address] Electronically authenticated by: [id number] Y Date: 02/09/2025 15:09 Dictated By: Aamir Chu M.D. Signed By: 02/09/25 1511 DD/ 1509 TD/TT: Milk Drying Machine Operator: [facility] Radiology, Radiologi MD stefan - 02/09/2025 [place] [address] XRay Report Signed Patient: EVELIO IRENE MR#: [id number] : 1955 Acct:[id number] Age/Sex: 69 / M ADM Date: 02/09/25 Loc: [facility] Attending Dr: NINO HAMMONDS Ordering Physician: NINO HAMMONDS Date of Service: 02/09/25 Procedure(s): XR lumbar spine 2-3V Accession Number(s): [id number] cc: NINO HAMMONDS [place] [id number] Patient Name: EVELIO IRENE MRN: [id number] date: 1955 Sex: M Assigned Patient Location: [facility] Current Patient Location: [facility] Accession/Order Number: [id number] Exam Date: 02/09/2025 15:08 Report Date: 02/09/2025 [...] LOSS. Impression dictated by: Aamir Chu Jr., D.OArnulfo 02/09/2025 3:09 PM Dictation Location: [place] [address] Electronically authenticated by: [id number] Y Date: 02/09/2025 15:09 Dictated By: Aamir Chu M.D. Signed By: 02/09/25 1511 DD/ 1509 TD/TT: Milk Drying Machine Operator: [facility] Radiology Study observation (narrative) [facility] XR LUMBAR SPINE 2 OR 3VOrder ed By: Radiologist Radiology on 02-09-2025 [facility] Work Phone: HbA1c (Bld) [Mass fraction]o n 02-08-2025 Interpretation and review of laboratory results Abnormal [facility] Laboratory - Hematology and Cell countson 02-08-2025 HbA1c (Bld) [Mass fraction] 6.6 % [facility] Laboratory - Hematology and Cell countson 10-26-2024 HbA1c (Bld) [Mass fraction] 7.2 % [facility] No Panel Informationon 10-26 [facility] Ambulatory Visit Summaryon 1 08-27-2023 Ambulatory Visit Summary Ambulatory Visit Summary EVELIO IRENE :1955 Visit Date:06/26/2024 Ambulatory Visit Instructions Your Diagnosis Elevated PSA H/O renal cell cancer BPH with urinary obstruction Family history of prostate cancer Your Care Team Attending Physician - Clifton SNOW MD Primary Care Physician - NINO HAMMONDS MD This Is Your Medications List finasteride (finasteride [...] Appointments Saturday 9:15 AM EST With: Clifton SNOW MD Where: [facility] [address] [address]- You Need to Schedule the Following Appointments Follow Up with Clifton SNOW MD, URL When: Where: [address] [place] [address]- Medications What How Much When Instructions Unchanged [...] the ridge (more content not included)... Normal [facility] Urology Office/Clinic Noteon 12-20-2024 Urology Office/Clinic Note Urology Office/Clinic Note Chief Complaint f/u PSA HPI Staff 15 mos w/ PSA. Previous dx: h/o RCC [S/p R nephrectomy 2012], BPH with urinary obstruction, elevated PSA, fam [...] and history for this patient from Dr. Snow I have reviewed and verified the staff [...] Contact Information EDY FOX, Clifton Reilly, URL [facility] [place] [address]- Additional Instructions: 1 year w/ PSA Patient Education Prostate Cancer Screening IFrida, personally scribed for Dr. Snow on 06/26/2024 11:54:58. . Documentation recorded by the scribeFrida, accurately reflects the services(s) I performed and decisions made by me. Authenticated by Dr. Snow on 06/26/2024 12:03:25. Problem List/Past Medical History [...] Family Histo (more content not included)... Normal [facility] Comment on above: Result Comment: Elec tronically Signed By: Clifton SNOW MD\.br\Date and Time Signed: 06/26/24 12:03 EST\.br\Electronically Co-Signed By: Frida Jameson\.br\Date and Time Co-Signed: 06/26/24 12:00 EST\.br\Electronically Co-Signed By: Frida Jameson\.br\Date and Time Co-Signed: 06/26/24 12:01 EST Laboratory - Hematology and Cell countson 06-25-2024 HbA1c (Bld) [Mass fraction] 7.1 % [facility] No Panel Informationon 06-25 [facility] CT ABD/PELVIS WO CONon 12-13 CT ABD/PELVIS WO CON EXAMINATION: CT ABD /PELVIS WO CON, 12/12/2021 12:56 PM EDT HISTORY: [...] by: TUAN VILLAFANA Date: 2021-12-13 07:30 Normal [facility] XR CHEST 2 Von 12-12-2021 XR CHEST [...] by: AIDAN HDEZ Date: 2021-12-12 13:39 Normal [facility] Comprehensive Metabolic Pane irlanda 08-30-2021 Albumin [Mass/Vol] 4.7 g/dL Normal 3.6-5.1 [facility] Meter Reading Clerk Comment on above: Performed By: #### C RICKY LIPD #### [facility] [address] [place], [place] [id number] Albumin/Globulin [Mass ratio] 2.0 {ratio} Normal 1.0-2.5 [facility] Meter Reading Clerk Comment on above: Performed By: #### C RICKY LIPD #### [facility] [address] [place] [id number] ALP [Catalytic activity/Vol] 82 U/L Normal 40-129 [facility] Meter Reading Clerk Comment on above: Performed By: #### C RICKY, LIPD #### [facility] [address] [facility] [place] [place] [id number] ALT [Catalytic activity/Vol] 21 U/L Normal 9-46 [facility] Comment on above: Result Comment: 06/07 Female reference range changed. Performed By: #### C MP, LIPD #### [facility] [address] [facility] [place] [id number] Anion gap [Moles/Vol] 17 mmol/L Normal 12-20 [facility] Comment on above: Result Comment: Effe ctive 07/13/2019 reference range changed. Performed By: #### C RICKY LIPD #### [facility] [address] [facility] [place] [place] [id number] AST [Catalytic activity/Vol] 25 U/L Normal 10-40 [facility] Comment on above: Performed By: #### C RICKY, LIPD #### [facility] [address] [facility] [place] [id number] Bilirubin [Mass/Vol] 0.34 mg/dL Normal 0.30-1.20 [facility] Comment on above: Performed By: #### C RICKY, LIPD #### [facility] [address] [place], [place] [id number] BUN/CREA 14 Ratio Normal 6-22 [facility] Comment on above: Performed By: #### C RIKCY, LIPD #### [facility] [address] [facility] [place] [id number] Calcium [Mass/Vol] 9.5 mg/dL Normal 8.6-10.2 [facility] Comment on above: Performed By: #### C MP, LIPD #### [facility] [address] [facility] [place] [id number] Chloride [Moles/Vol] 104 mmol/L Normal 98-107 [facility] Comment on above: Performed By: #### C MP, LIPD #### [facility] [address] [facility] [place] [id number] CO2 [Moles/Vol] 24 mmol/L Normal 20-31 [facility] Meter Reading Clerk Comment on above: Performed By: #### C MP, LIPD #### [facility] [address] [facility] [place] [id number] Creatinine [Mass/Vol] 2.0 mg/dL High 0.7-1.4 [facility] Comment on above: Performed By: #### C MP, LIPD #### [facility] [address] [facility] [place] [id number] eGFRAA 41 mL/min/1.73m2 Low >60 [facility] Specialist Comment on above: Performed By: #### C MP, LIPD #### [facility] [address] [facility] [place] [id number] eGFRNAA 34 mL/min/1.73m2 Low >60 [facility] Specialist Comment on above: Performed By: #### C MP, LIPD #### [facility] [address] [place], [place] [id number] Globulin (S) [Mass/Vol] 2.3 g/dL Normal 1.9-3.7 [facility] Specialist Comment on above: Performed By: #### C RICKY, LIPD #### [facility] [address] [place], [place] [id number] Glucose [Mass/Vol] 160 mg/dL High 65-99 [facility] Specialist Comment on above: Result Comment: For FASTING Glucose --- ADA reference ranges: Normal 65-99 mg/dl Prediabetes 100-125 Diabetes >/= 126 Performed By: #### C MP, LIPD #### [facility] [address] [place], [place] [id number] Potassium [Moles/Vol] 4.9 mmol/L Normal 3.5-5.5 [facility] Comment on above: Performed By: #### C MP, LIPD #### [facility] [address] [facility] [place] [id number] Protein [Mass/Vol] 7.0 g/dL Normal 6.1-8.1 [facility] Specialist Comment on above: Performed By: #### C MP, LIPD #### [facility] [address] [facility] [place] [id number] Sodium [Moles/Vol] 140 mmol/L Normal 135-146 [facility] Comment on above: Performed By: #### C MP, LIPD #### [facility] [address] [place], [place] [id number] Urea nitrogen [Mass/Vol] 28 mg/dL High 7-25 [facility] Specialist Comment on above: Performed By: #### C MP, LIPD #### [facility] [address] [place], [place] [id number] Lipid Panelon 08-30-2021 Cholesterol [Mass/Vol] 151 mg/dL Normal 125-200 No [facility] Comment on above: Result Comment: Low risk < 200mg/dL Borderline risk 201-239 mg/dl High risk > or equal to 240 Performed By: #### C MP, LIPD #### [facility] [address] [place], [place] [id number] Cholesterol in HDL [Mass/Vol] 36 mg/dL Low >40 [facility] Specialist Comment on above: Result Comment: High Cardiovascular Risk HDL <40 mg/dL Low Cardiovascular Risk HDL > or equal to 60 mg/dl Performed By: #### C MP, LIPD #### [facility] [address] [place], [place] [id number] Cholesterol in LDL [Mass/Vol] 87 mg/dL Normal [facility] Comment on above: Result Comment: LDL ATP III CLASSIFICATION LDL less than 100 mg/dl Optimal LDL 100-129 mg/dl Near or above optimal LDL 130-159 Borderline high LDL 160-189 High LDL greater than 189 mg/dl Very High Performed By: #### C MP, LIPD #### [facility] [address] [place], [place] [id number] Cholesterol in VLDL [Mass/Vol] 28 mg/dL Normal [facility] Comment on above: Performed By: #### C MP, LIPD #### [facility] [address] [place], [place] [id number] Cholesterol.total/Chol esterol in HDL [Mass ratio] 4 {ratio} Normal [facility] Specialist Comment on above: Performed By: #### C MP, LIPD #### [facility] [address] [place], [place] [id number] Triglyceride [Mass/Vol] 138 mg/dL Normal 30-150 [facility] Comment on above: Result Comment: TRIG ATPIII CLASSIFICATIONS TRIG less than 150 mg/dl Normal TRIG 150-199 mg/dl Borderline High TRIG 200-500 mg/dl High TRIG greather than 500 mg/dl Very High Performed By: #### C RICARDO GARCÍA #### [facility] [address] [place], [place] [id number] Vital Signs Date Time Vital Sign Value Performing Clinician Facility 03-05-2025 11:33-0400 Body temperature 98.2 [degF] Nino Hammonds II Work Phone: [facility] 03-05-2025 11:33-0400 Diastolic blood pressure 70 mm[Hg] Nino Hammonds II Work Phone: [facility] 03-05-2025 11:33-0400 Heart rate 66 /min Nino Hammonds II Work Phone: [facility] 03-05-2025 11:33-0400 Respiratory rate 15 /min Nino Hammonds II Work Phone: [facility] 03-05-2025 11:33-0400 SaO2% (BldA) [Mass fraction] 98 % Nino Hammonds II Work Phone: [facility] 03-05-2025 11:33-0400 Systolic blood pressure 139 mm[Hg] Nino Hammonds II Work Phone: [facility] 03-05-2025 06:00-0400 Body weight 110.1 kg Nino Hammonds II Work Phone: [facility] 03-03-2025 14:55-0400 Body height 182.88 cm Nino Hammonds II Work Phone: [facility] 03-03-2025 13:45-0400 Inhaled oxygen flow rate 3 L/min Nino Hammonds II Work Phone: [facility] 03-02-2025 10:12-0400 Body temperature 98.2 [degF] Nino Hammonds II Work Phone: [facility] 03-02-2025 10:12-0400 Diastolic blood pressure 88 mm[Hg] Nino Hammonds II Work Phone: [facility] 03-02-2025 10:12-0400 Heart rate 85 /min Nino Hammonds II Work Phone: [facility] 03-02-2025 10:12-0400 Respiratory rate 16 /min Nino Hammonds II Work Phone: [facility] 03-02-2025 10:12-0400 SaO2% (BldA) [Mass fraction] 98 % Nino Hammonds II Work Phone: [facility] 03-02-2025 10:12-0400 Systolic blood pressure 136 mm[Hg] Nino Hammonds II Work Phone: [facility] 02-24-2025 09:36-0400 Body height 185.4 cm Margoth Hemmer PA Work Phone: [facility] 02-24-2025 09:36-0400 Body mass index (BMI) [Ratio] 31.98 kg/m2 Margoth Hemmer PA Work Phone: [facility] 02-24-2025 09:36-0400 Body weight 109.95 kg Margoth Hemmer PA Work Phone: [facility] 02-24-2025 09:36-0400 Diastolic blood pressure 84 mm[Hg] Amrgoth Hemmer PA Work Phone: [facility] 02-24-2025 09:36-0400 Heart rate 93 /min Margoth Hemmer PA Work Phone: [facility] 02-24-2025 09:36-0400 Respiratory rate 16 /min Margoth Hemmer PA Work Phone: [facility] 02-24-2025 09:36-0400 SaO2% (BldA) [Mass fraction] 97 % Margoth Hemmer PA Work Phone: [facility] 02-24-2025 09:36-0400 Systolic blood pressure 158 mm[Hg] Margoth Hemmer PA Work Phone: [facility] 02-15-2025 16:13-0400 Body height 185.4 cm Nino Hammonds MD Work Phone: [facility] 02-15-2025 16:13-0400 Body mass index (BMI) [Ratio] 33.64 kg/m2 Nino Hammonds MD Work Phone: [facility] 02-15-2025 16:13-0400 Body weight 115.67 kg Nino Hammonds MD Work Phone: [facility] 02-15-2025 16:13-0400 Diastolic blood pressure 72 mm[Hg] Nino Hammonds MD Work Phone: [facility] 02-15-2025 16:13-0400 Heart rate 88 /min Nino Hammonds MD Work Phone: [facility] 02-15-2025 16:13-0400 SaO2% (BldA) [Mass fraction] 98 % Nino Hammonds MD Work Phone: [facility] 02-15-2025 16:13-0400 Systolic blood pressure 136 mm[Hg] Nino Hammonds MD Work Phone: [facility] 02-08-2025 16:03-0400 Body height 185.4 cm Nino Hammonds MD Work Phone: [facility] 02-08-2025 16:03-0400 Body mass index (BMI) [Ratio] 32.72 kg/m2 Nino Hammonds MD Work Phone: [facility] 02-08-2025 16:03-0400 Body weight 112.49 kg Nino Hammonds MD Work Phone: [facility] 02-08-2025 16:03-0400 Diastolic blood pressure 58 mm[Hg] Nino Hammonds MD Work Phone: [facility] 02-08-2025 16:03-0400 Heart rate 103 /min Nino Hammonds MD Work Phone: [facility] 02-08-2025 16:03-0400 Respiratory rate 17 /min Nino Hammonds MD Work Phone: [facility] 02-08-2025 16:03-0400 SaO2% (BldA) [Mass fraction] 87 % Nino Hammonds MD Work Phone: [facility] 02-08-2025 16:03-0400 Systolic blood pressure 130 mm[Hg] Nino Hammonds MD Work Phone: [facility] 01-11-2025 10:48-0400 Body height 185.4 cm Nino Hammonds MD Work Phone: [facility] 01-11-2025 10:48-0400 Body mass index (BMI) [Ratio] 30.61 kg/m2 Nino Hammonds MD Work Phone: [facility] 01-11-2025 10:48-0400 Body weight 105.23 kg Nino Hammonds MD Work Phone: [facility] 01-11-2025 10:48-0400 Diastolic blood pressure 64 mm[Hg] Nino Hammonds MD Work Phone: [facility] 01-11-2025 10:48-0400 Heart rate 64 /min Nino Hammonds MD Work Phone: [facility] 01-11-2025 10:48-0400 SaO2% (BldA) [Mass fraction] 97 % Nino Hammonds MD Work Phone: [facility] 01-11-2025 10:48-0400 Systolic blood pressure 134 mm[Hg] Nino Hammonds MD Work Phone: [facility] 10-26-2024 08:56-0400 Body height 185.4 cm Nino Hammonds MD Work Phone: [facility] 10-26-2024 08:56-0400 Body mass index (BMI) [Ratio] 32.19 kg/m2 Nino Hammonds MD Work Phone: [facility] 10-26-2024 08:56-0400 Body weight 110.68 kg Nino Hammonds MD Work Phone: [facility] 10-26-2024 08:56-0400 Diastolic blood pressure 76 mm[Hg] Nino Hammonds MD Work Phone: [facility] 10-26-2024 08:56-0400 Heart rate 66 /min Nino Hammonds MD Work Phone: [facility] 10-26-2024 08:56-0400 SaO2% (BldA) [Mass fraction] 98 % Nino Hammonds MD Work Phone: [facility] 10-26-2024 08:56-0400 Systolic blood pressure 130 mm[Hg] Nino Hammonds MD Work Phone: [facility] 06-26-2024 10:59-0500 Diastolic blood pressure 78 mm[Hg] Clifton SNOW [facility] 06-26-2024 10:59-0500 Heart rate 78 /min Clifton SNOW [facility] 06-26-2024 10:59-0500 Mean blood pressure 104 mm[Hg] Clifton SNOW [facility] 06-26-2024 10:59-0500 Systolic blood pressure 155 mm[Hg] Clifton SNOW [facility] 06-26-2024 10:45-0500 Blood Pressure Location Clifton SNOW [facility] 06-26-2024 10:45-0500 Body temperature 98.6 [degF] Clifton SNOW [facility] 06-26-2024 10:45-0500 Diastolic blood pressure 86 mm[Hg] Clifton SNOW [facility] 06-26-2024 10:45-0500 Heart rate 76 /min Clifton SNOW [facility] 06-26-2024 10:45-0500 Respiratory rate 18 /min Clifton SNOW [facility] 06-26-2024 10:45-0500 Systolic blood pressure 156 mm[Hg] Clifton SNOW [facility] 06-25-2024 09:57-0500 Body height 185.4 cm Nino Hammonds MD Work Phone: [facility] 06-25-2024 09:57-0500 Body mass index (BMI) [Ratio] 32.32 kg/m2 Nino Hammonds MD Work Phone: [facility] 06-25-2024 09:57-0500 Body weight 111.13 kg Nino Hammonds MD Work Phone: [facility] 06-25-2024 09:57-0500 Diastolic blood pressure 78 mm[Hg] Nino Hammonds MD Work Phone: [facility] 06-25-2024 09:57-0500 Heart rate 74 /min Nino Hammonds MD Work Phone: [facility] 06-25-2024 09:57-0500 SaO2% (BldA) [Mass fraction] 96 % Nino Hammonds MD Work Phone: [facility] 06-25-2024 09:57-0500 Systolic blood pressure 136 mm[Hg] Nino Hammonds MD Work Phone: [facility] 01-29-2022 09:29-0400 Blood Pressure Location Clifton SNOW [facility] 01-29-2022 09:29-0400 Diastolic blood pressure 110 mm[Hg] Clifton SNOW [facility] 01-29-2022 09:29-0400 Heart rate 81 /min Clifton SNOW [facility] 01-29-2022 09:29-0400 Respiratory rate 16 /min Clifton SNOW [facility]amee 01-29-2022 09:29-0400 Systolic blood pressure 174 mm[Hg] Cliftonakbar SNOW [facility] Jamee Encounters Encounter Date Encounter Type Care Provider Facility Start: 03-26-2025 End: 03-26-2025 ambulatory [facility] Ambulatory Start: 03-25-2025 End: 03-25-2025 ambulatory Clifton SNOW Facility:[facility] Start: 03-25-2025 End: 03-25-2025 Patient encounter procedure Clifton SNOW [facility] Start: 03-19-2025 End: 03-19-2025 Bamboo flowsheet Nino Hammonds MD Work Phone: [facility] Start: 03-19-2025 End: 03-19-2025 Bamboo flowsheet Nino Hammonds MD Work Phone: [facility] Start: 03-19-2025 End: 03-19-2025 ambulatory NINO HAMMONDS Not Available Start: 03-16-2025 End: 03-16-2025 ambulatory Clifton SNOW Facility:[facility] [place] Start: 03-16-2025 End: 03-16-2025 Patient encounter procedure Clifton SNOW [facility] Andrea Start: 03-03-2025 End: 03-05-2025 Evaluation and management of inpatient Troy Rizzo MD [address] Work Phone: Start: 03-03-2025 Non-patient / Non-visit Troy arvizu MD -[facility] Work Phone: Start: 03-02-2025 End: 03-02-2025 Chart abstracting Ollie Duong MD Work Phone: Hematology/Oncology Start: 03-02-2025 End: 03-02-2025 ambulatory Nino Hammonds II Work Phone: [facility] Work Phone: Start: 03-02-2025 End: 03-02-2025 Patient encounter procedure Troy Rizzo MD -[facility] Work Phone: Start: 03-01-2025 End: 03-01-2025 ambulatory Clifton SNOW Facility:[facility] Start: 03-01-2025 End: 03-01-2025 Patient encounter procedure Clifton SNOW [facility] Start: 02-24-2025 End: 02-24-2025 Bamboo flowsheet Margoth Chance PA Work Phone: [facility] Start: 02-24-2025 End: 02-24-2025 Bamboo flowsheet Margoth Chance PA Work Phone: [facility] Start: 02-24-2025 End: 02-24-2025 Office outpatient visit 25 minutes Margoth Chance PA Work Phone: [facility] Comment on above: Acute deep vein thro mbosis (DVT) of iliac vein of right lower extremity (HCC) (Primary Dx); Bladder wall thickening; History of DVT (deep vein thrombosis); Localized edema Start: 02-24-2025 End: 02-24-2025 ambulatory MARGOTH CHANCE Not Available Start: 02-23-2025 End: 02-24-2025 Telephone encounter Margoth Chance PA Work Phone: [facility] Start: 02-22-2025 End: 02-22-2025 ambulatory NINO HAMMONDS Not Available Start: 02-15-2025 End: 02-15-2025 Office outpatient visit 25 minutes Nino Hammonds MD Work Phone: [facility] [place] [facility] Comment on above: Acute bilateral low back pain without sciatica (Primary Dx); History of primary malignant neoplasm of kidney; Localized edema; Chronic kidney disease, stage 3b ([facility]-H[facility]) Start: 02-15-2025 End: 02-15-2025 ambulatory NINO HAMMONDS Not Available Start: 02-15-2025 End: 02-15-2025 Bamboo flowsheet Nino Hammonds MD Work Phone: [facility] [place] [facility] Start: 02-15-2025 End: 02-15-2025 Bamboo flowstawnya Hammonds MD [facility] Start: 02-09-2025 End: 02-09-2025 Clinisync Result Encounter Nino Hammonds MD Work Phone: [facility] Unsolicited Start: 02-09-2025 End: 02-09-2025 Clinisync Result Encounter Nino Hammonds MD Work Phone: [facility] Unsolicited Start: 02-08-2025 End: 02-08-2025 Office outpatient visit 25 minutes Nino Hammonds MD [facility] Comment on above: Acute bilateral low back pain without sciatica (Primary Dx); Type 2 diabetes mellitus with chronic kidney disease, with long-term current use of insulin, unspecified CKD stage (HCC); Localized edema; History of primary malignant neoplasm of kidney Start: 02-08-2025 End: 02-08-2025 ambulatory NINO HAMMONDS Not Available Start: 02-08-2025 End: 02-08-2025 Bamboo flowsheet Nino Hammonds MD Work Phone: [facility] [place] [facility] Start: 02-08-2025 End: 02-08-2025 Bamboo flowsheet Nino Hammonds MD Work Phone: [facility] [place] [facility] Start: 01-11-2025 End: 01-11-2025 Bamboo flowsheet Nino Hammonds MD Work Phone: [facility] Start: 01-11-2025 End: 01-11-2025 Bamboo flowsheet Nino Hammonds MD Work Phone: [facility] Start: 01-11-2025 End: 01-11-2025 Office outpatient visit 10 minutes Nino Hammonds MD Work Phone: [facility] Comment on above: Acute bronchiolitis due to unspecified organism (Primary Dx) Start: 01-11-2025 End: 01-11-2025 ambulatory NINO HAMMONDS Not Available Start: 10-26-2024 End: 10-26-2024 Bamboo flowsheet Nino Hammonds MD Work Phone: [facility] Start: 10-26-2024 End: 10-26-2024 Bamboo flowsheet Nino Hammonds MD Work Phone: [facility] Start: 10-26-2024 End: 10-26-2024 Assay of hemosiderin, quant Nino Hammonds MD Work Phone: [facility] Work Phone: Start: 10-26-2024 End: 10-26-2024 [...] Available Start: 06-26-2024 End: 06-26-2024 ambulatory Clifton SNOW Facility:[facility] Start: 06-26-2024 End: 06-26-2024 Patient encounter procedure Clifton SNOW [facility] Start: 06-25-2024 End: 06-25-2024 Bamboo flowsheet Nino Hammonds MD Work Phone: [facility] Start: 06-25-2024 End: 06-25-2024 Bamboo flowsheet Nino Hammonds MD Work Phone: [facility] Start: 06-25-2024 End: 06-25-2024 Office outpatient visit 15 minutes Nino Hammonds MD Work Phone: [facility] Comment on above: Type 2 diabetes anjelica itus with diabetic neuropathy, with long- term current use of insulin ([facility]); Flu vaccine need Start: 06-25-2024 End: 06-25-2024 ambulatory NINO HAMMONDS Not Available Start: 11-14-2022 End: 02-12-2023 Recurring Adrienne Hammonds [facility] Start: 06-25-[address] NINO HAMMONDS Facilit y:H1 Start: 03-05-2022 End: 06-03-2022 Recurring NINO HAMMONDS [facility] Start: 01-29-2022 End: 01-29-2022 Patient encounter procedure Clifton SNOW [facility] Start: 12-12-2021 End: 12-13-[address] NINO HAMMONDS Facility:[facility] Procedures Date Procedure Procedure Detail Performing Clinician Start: 03-16-2025 Cystoscopy Clifton BALTAZAR Start: 03-03-2025 Antibody screen Troy Rizzo Comment on above: Result Comment: PERF ORMED BY: [address] [place] [address] PATHOLOGIST REFINERY SUPERINTENDENT LIZZIE CASTRO M.D. Start: 02-09-2025 XR LUMBAR SPINE 2 OR 3V Nino Hammonds MD Work Phone: Start: 02-08-2025 Hemoglobin glycosyla jack a1c Nino Hammonds MD Work Phone: Start: 10-26-2024 Hemoglobin glycosyla jack a1c Nino Hammonds MD Work Phone: Start: 06-25-2024 Hemoglobin glycosyla jack a1c Nino Hammonds MD Work Phone: Start: 03-13-2023 Colonoscopy Nino vernon MD Work Phone: Start: 12-12-[address] NINO HAMMONDS Comment on above: Performed By: #### P SAD #### [facility] [address] [place] [address] Dr. David Santiago Start: 06-22-2014 Transrectal biopsy o f prostate using ultrasound guidance Clifton SNOW Comment on above: 03/16/2014 Start: 03-16-2014 Transrectal biopsy o f prostate using ultrasound guidance Clifton SNOW Start: 10-16-2012 Total nephrectomy Hany SNOW Comment on above: RIGHT Plan of Treatment Date Care Activity Detail Author Start: 03-13-2033 Screening for malign ant neoplasm of colon [facility] Start: 2029 RSV Vaccine (1 - 1-d ose 75+ series) RSV Vaccine (1 - 1-dose 75+ series) [facility] Start: 03-04-2026 ambulatory Ambulatory Facility:[facility] Start: 02-24-2026 Urine screening for protein Diabetes: Urine Protein Screening [facility] Start: 12-30-2025 Glaucoma screening Diabetes: R etinopathy Screening [facility] Start: 10-26-2025 Medicare Annual Well ness (AWV) Medicare Annual Wellness (AWV) [facility] Start: 06-04-2025 Hemoglobin A1c measurement Diabetes: Hemoglobin A1C [facility] Start: 05-11-2025 Hemoglobin A1c measurement Diabetes: Hemoglobin A1C [facility] Start: 03-24-2025 End: 03-24-2025 Patient encounter procedure 03/24/2025 8:45 AM EDT Office Visit KATHERIN Yange [address] [facility] [address] [place] [address] Nino Hammonds MD [address] [facility] [address] [place] [address] KATHERIN Zaragoza Start: 03-19-2025 End: 03-19-2025 Patient encounter procedure 03/19/2025 10:00 AM EDT Office Visit KATHERIN Gastonnce [address] [facility] [address] [place] [address] Nino Hammonds MD [address] [facility] [address] [place] [address] Arrived KATHERIN Zaragoza Comment on above: Arrived Start: 03-08-2025 Influenza vaccination Influenza Vacc ine (#1) [facility] Start: 03-05-2025 [facility] Start: 03-04-2025 End: 03-04-2025 ambulatory 03/04/2025 11:00 AM EDT Visit (SP) Office Hematology/Oncology [address] [place] [address] [place] [address] Ollie Duong MD [address] [place] [address] Snow for active blood clot Hematology/Oncology Comment on above: Referred by Dr. Mario cheatham for active blood clot Start: 03-03-2025 Referral to referral management liaison [facility] Start: 03-03-2025 Referral to clinical metal roaster [facility] Start: 03-03-2025 Hospital admission [facility] Start: 03-03-2025 [facility] Start: 03-03-2025 Fragmentation of Low er Vein, Percutaneous Approach, Ultrasonic Fragmentation of Lower Vein, Percutaneous Approach, Ultrasonic [facility] Start: 03-03-2025 Fragmentation of Rig ht Common Iliac Vein, Percutaneous Approach, Ultrasonic Fragmentation of Right Common Iliac Vein, Percutaneous Approach, Ultrasonic [facility] Start: 03-03-2025 Fragmentation of Rig ht Femoral Vein, Percutaneous Approach, Ultrasonic Fragmentation of Right Femoral Vein, Percutaneous Approach, Ultrasonic [facility] Start: 02-24-2025 End: 02-24-2025 Patient encounter procedure [facility] [place] [facility] Comment on above: Arrived Start: 02-18-2025 End: 02-18-2025 [facility] Start: 02-15-2025 End: 02-15-2025 [facility] Comment on above: Arrived Start: 02-15-2025 End: 02-15-2026 CT Abdomen WO contrast CT abdomen wo IV contrast Imaging Routine Acute bilateral low back pain without sciatica History of primary malignant neoplasm of kidney Chronic kidney disease, stage 3b (CMS-HCC) Expected: 02/15/2025 (Approximate), Expires: 02/15/2026 [facility] Work Phone: Comment on above: Expected: 02/15/2025 (Approximate), Expires: 02/15/2026 Start: 02-13-2025 Urine screening for protein Diabetes: Urine Protein Screening [facility] Start: 02-08-2025 End: 02-08-2025 Patient encounter procedure 02/08/2025 3:45 PM EDT Office Visit KATHERIN Zaragoza [address] [facility] [address] [place] [id number] Nino Hammonds MD [address] [facility] [address] [place] [address] Arrived KATHERIN Zaragoza Comment on above: Arrived Start: 02-08-2025 End: 02-08-2026 Comprehensive metabolic 2000 panel - Serum or Plasma Comprehensive metabolic panel Lab Routine Acute bilateral low back pain without sciatica Localized edema History of primary malignant neoplasm of kidney Expected: 02/08/2025 (Approximate), Expires: 02/08/2026 [facility] Comment on above: Expected: 02/08/2025 (Approximate), Expires: 02/08/2026 Start: 02-08-2025 End: 02-08-2026 Urinalysis complete panel - Urine Urinalysis with microscopic Lab Routine Acute bilateral low back pain without sciatica Localized edema History of primary malignant neoplasm of kidney Expected: 02/08/2025 (Approximate), Expires: 02/08/2026 [facility] Comment on above: Expected: 02/08/2025 (Approximate), Expires: 02/08/2026 Start: 02-08-2025 End: 02-08-2026 XR Lumbar spine 2 or 3 Views XR lumbar spine 2 or 3 views Imaging Routine Acute bilateral low back pain without sciatica History of primary malignant neoplasm of kidney Expected: 02/08/2025, Expires: 02/08/2026 [facility] Work Phone: Comment on above: Expected: 02/08/2025 , Expires: 02/08/2026 Start: 01-25-2025 Hemoglobin A1c measurement Diabetes: Hemoglobin A1C [facility] Start: 01-11-2025 End: 01-11-2025 Patient encounter procedure 01/11/2025 11:00 AM EDT Office Visit [facility] [address] [facility] [address] [place] [id number] Nino Hammonds MD [address] [facility] [address] [place] [address] Arrived [facility] Comment on above: Arrived Start: 10-26-2024 End: 10-26-2024 Patient encounter procedure [facility] Comment on above: Arrived Start: 09-23-2024 Hemoglobin A1c measurement Diabetes: Hemoglobin A1C [facility] Start: 07-31-2024 Medicare Annual Well ness (AWV) Medicare Annual Wellness (AWV) [facility] Start: 07-08-2024 Advance Directive Discussion Advance Directive Discussion [facility] Start: 06-25-2024 End: 06-25-2024 Patient encounter procedure 06/25/2024 10:00 AM EST Office Visit [facility] [address] [place] [address] [place] [id number] Nino Hammonds MD [address] [place] [address] [place] [address] Arrived [facility] Comment on above: Arrived Start: 05-26-2024 Hemoglobin A1c measurement Diabetes: Hemoglobin A1C [facility] Start: 03-08-2024 Influenza vaccination Influenza Vacc ine (#1) [facility] Start: 2004 Pneumococcal Vaccine : 50+ (1 of 1 - PCV) Pneumococcal Vaccine: 50+ (1 of 1 - PCV) [facility] Start: 2004 Shingrix Vaccine (1 of 2) Shingrix Vaccine (1 of 2) [facility] Start: 1999 Diabetes Screening Diabetes Screenin g [facility] Start: 1999 Screening for malign ant neoplasm of colon [facility] Start: 1989 Lipid panel Lipid Screening [facility] Start: 1973 Pneumococcal Vaccine : 65+ Years (1 of 2 - PCV) Pneumococcal Vaccine: 65+ Years (1 of 2 - PCV) [facility] Start: 1973 Urine microalbumin profile DTaP,Tdap,Td Vaccine (1 - Tdap) [facility] Start: 1972 Anxiety Screening Anxiety Screening [facility] Start: 1972 Depression Screening Depression Scre ening [facility] Start: 1972 Hepatitis C screening Hepatitis C Sc charity [facility] Start: 1960 Pneumococcal Vaccine : 65+ Years (1 of 2 - PCV) Pneumococcal Vaccine: 65+ Years (1 of 2 - PCV) [facility] Start: 1954 Screening for malign ant neoplasm of colon [facility] CBC W Auto Different ial panel - Blood CBC and differential Lab Routine Acute bilateral low back pain without sciatica Localized edema History of primary malignant neoplasm of kidney Ordered: 02/08/2025 [facility] Comment on above: Ordered: 02/08/2025 Patient Education Know your Meds [facility] Work Phone: Patient referral [facility] Work Phone: Immunizations Immunization Date Immunization Notes Care Provider Joseph acosta 06-25-2024 influenza virus vaccine, unspecified formulation [facility] 06-25-2024 Influenza, High-dose Seasonal, Quadrivalent, Preservative Free Nino Hammonds MD Work Phone: [facility] 05-04-2022 influenza, high dose seasonal, preservative-free Nino Hammonds MD Work Phone: [facility] 05-04-2022 influenza virus vaccine, unspecified formulation Nino Hammonds MD Work Phone: [facility] 05-31-2021 influenza, high dose seasonal, preservative-free Nino Hammonds MD Work Phone: [facility] 04-25-2021 SARS-CoV-2 (COVID-19 ) mRNA BNT-162b2 vax [facility] [employer] [facility] 04-24-2021 Pfizer Purple Cap SARS-CoV-2 Vaccination Nino Hammonds MD Work Phone: [facility] 09-30-2020 SARS-CoV-2 (COVID-19 ) mRNA BNT-162b2 vax [facility] 09-29-2020 Pfizer Purple Cap SARS-CoV-2 Vaccination Nino Hammonds MD Work Phone: [facility] 09-10-2020 SARS-CoV-2 (COVID-19 ) mRNA BNT-162b2 vax [facility] [employer] [facility] Comment on above: Result Comment: 2023: [id number] 09-09-2020 Pfizer Purple Cap SARS-CoV-2 Vaccination Nino Hammonds MD Work Phone: [facility] 09-05-2020 SARS-CoV-2 (COVID-19 ) mRNA-1273 vaccine [facility] 07-14-2020 influenza virus vaccine, unspecified formulation [facility] 07-14-2020 influenza, injectabl e, quadrivalent, preservative free Nino Hammonds MD Work Phone: [facility] 07-14-2020 Influenza, Seasonal, Quadrivalent, Adjuvanted Nino Hammonds MD Work Phone: [facility] Payers Date Payer Category Payer Private Health Insurance [id number] 2019 Medicare [id number] 1959 Medicare [id number] 1959 Self-pay 1959 Unknown [id number] 1954 Unknown [id number] 1954 Unknown [id number] [id number] 1954 Unknown [id number] [id number]59 1954 Unknown [id number] 2.16.840.1.090266.3.579.2.1259 1954 Unknown [id number] 2.16.840.1.935170.3.579.2.1259 1954 Unknown [id number] 2.16.840.1.024523.3.579.2.1259 1954 Unknown [id number] 2.16.840.1.897932.3.579.2.1259 1954 Unknown [id number] 2.16.840.1.479209.3.579.2.1259 1954 Unknown [id number] 2.16.840.1.515016.3.579.2.1259 1954 Unknown [id number] 2.16.840.1.134642.3.579.2.1259 1954 Unknown [id number] 2.16.840.1.097173.3.579.2.727 1954 Unknown [id number] 2.16.840.1.985636.3.579.2.727 1954 Unknown [id number] 2.16.840.1.954886.3.579.2.727 1954 Unknown [id number] 2.16.840.1.436124.3.579.2.727 1954 Unknown [id number] 2.16.840.1.108266.3.579.2.727 1954 Unknown [id number] 2.16.840.1.225881.3.579.2.1244 Unknown Rk ARAUJO/JOHNY [id number] Unknown [id number] Social History Date Type Detail Facility Start: 01-29-2022 End: 03-16-2025 Tobacco smoking status Ex-smoker (finding) [facility] Start: 02-24-2024 End: 02-24-2025 Sex Assigned At Male [facility] Start: 07-08-1959 End: 07-08-1999 History of tobacco use Current smoker [facility] Start: 07-08-1959 End: 07-08-1999 History of tobacco use Cigarette Smoker [facility] Start: 07-31-2023 End: 02-24-2025 Cigarettes smoked current (pack per day) - Reported 3 [facility] Start: 07-31-2023 End: 02-08-2025 Tobacco use and exposure Smokeless tobacco non-user [facility] Start: 02-24-2024 End: 02-24-2025 Alcoholic beverage intake Current drinker of alcohol (finding) [facility] Start: 1955 Sex assigned at Not on file [facility] Start: 08-29-2012 Tobacco smoking status Never [facility] Sexual Orientation [facility] Start: 01-03-2019 Sex Male (finding) [facility] Start: 1955 Sex Assigned At Male F [facility] Start: 09-10-2012 Tobacco smoking stat us NHIS Never smoked tobacco [facility] Start: 09-10-2012 Alcohol Comment socially [facility] Start: 03-05-2025 SDOH Follow up SDOH Follow up [facility] Work Phone: Medical Equipment Procedure Code Equipment Code Equipment Original Text Equipment Identifier Dates [id number] Start: 05-22-2022 TEST 3 TIMES MIRANDA LY DIRECTED E11.65 [id number] Start: 06-28-2023 1 each by Other route in the morning and 1 each in the evening and 1 each before bedtime. Use as instructedTEST 3 TIMES DAILY DIRECTED E11.65. [id number] Start: 09-07-2024 End: 12-16-2024 USE TWICE A DAY DIRECTED [id number] Start: 12-24-2024 Goals Date Patient Goal Desired Activity /State Functional Status Date Assessment Result Facility 03-05-2025 Functional status Patient at Baseline [facility] Work Phone: 02-24-2025 Patient Health [facility] ionnaire 2 item (PHQ-2) [Reported] [facility] 02-08-2025 Patient Health Quest ionnaire 2 item (PHQ-2) [Reported] [facility] 10-26-2024 Patient Health Quest ionnaire 2 item (PHQ-2) [Reported] [facility] 06-26-2024 Functional Status N/A [facility] 01-29-2022 Functional Status N/A [facility] Mental Status Date Assessment Result Facility 03-05-2025 Cognitive function Cognitive Sta tus Patient at Baseline [facility] Work Phone: Clinical Notes 01-29-2022 to 03-16-2025 Note Date & Type Note Facility 03-16-2025 Hospital Discharg e instructions Patient Education 03/16/2025 12:49:56 Cystoscopy Cystoscopy Cystoscopy is a procedure that is used to help diagnose and sometimes treat conditions that affect the lower urinary tract. The lower urinary tract includes the bladder and the urethra. The urethra is the tube that drains urine from the bladder. Cystoscopy is done using a thin, tube-shaped instrument with a light and camera at the end (cystoscope). The cystoscope may be hard or flexible, depending on the goal of the procedure. The cystoscope is inserted through the urethra, into the bladder. Cystoscopy may be recommended if you have: Urinary tract infections that keep coming back. Blood in the urine (hematuria). An inability to control when you urinate (urinary incontinence) or an overactive bladder. Unusual cells found in a urine sample. A blockage in the urethra, such as a urinary stone. Painful urination. An abnormality in the bladder found during an intravenous pyelogram (IVP) or CT scan. Cystoscopy may also be done to remove a sample of tissue to be examined under a microscope (biopsy). Tell a health care provider about: Any allergies you have. All medicines you are taking, including vitamins, herbs, eye drops, creams, and furj-uiz-ulflagq medicines. Any problems you or family members have had with anesthetic medicines. Any blood disorders you have. Any surgeries you have had. Any medical conditions you have. Whether you are or may be . What are the risks? Generally, this is a safe procedure. However, problems may occur, including: Infection. Bleeding. Allergic reactions to medicines. Damage to other structures or organs. What happens before the procedure? Medicines Ask your health care provider about: Changing or stopping your regular medicines. This is especially important if you are taking diabetes medicines or blood thinners. Taking medicines such as aspirin and ibuprofen. These medicines can thin your blood. Do not take these medicines unless your health care provider tells you to take them. Taking tgfb-eky-psvcrlg medicines, vitamins, herbs, and supplements. Tests You may have an exam or testing, such as: X-rays of the bladder, urethra, or kidneys. CT scan of the abdomen or pelvis. Urine tests to check for signs of infection. General instructions Follow instructions from your health care provider about eating or drinking restrictions. Ask your health care provider what steps will be taken to help prevent infection. These steps may include: ?Washing skin with a germ-killing soap. ?Taking antibiotic medicine. Plan to have a responsible adult take you home from the hospital or clinic. What happens during the procedure? You will be given one or more of the following: ?A medicine to help you relax (sedative). ?A medicine to numb the area (local anesthetic). The area around the opening of your urethra will be cleaned. The cystoscope will be passed through your urethra into your bladder. Germ-free (sterile) fluid will flow through the cystoscope to fill your bladder. The fluid will stretch your bladder so that your health care provider can clearly examine your bladder ni. Your doctor will look at the urethra and bladder. Your doctor may take a biopsy or remove stones. The cystoscope will be removed, and your bladder will be emptied. The procedure may vary among health care providers and hospitals. What can I expect after the procedure? After the procedure, it is common to have: Some soreness or pain in your abdomen and urethra. Urinary symptoms. These include: ?Mild pain or burning when you urinate. Pain should stop within a few minutes after you urinate. This may last for up to 1 week. ?A small amount of blood in your urine for several days. ?Feeling like you need to urinate but producing only a small amount of urine. Follow these instructions at home: Medicines Take sjoa-ykf-aucjvdw and prescription medicines only as told by your health care provider. If you were prescribed an antibiotic medicine, take it as told by your health care provider. Do not stop taking the antibiotic even if you start to feel better. General instructions Return to your normal activities as told by your health care provider. Ask your health care provider what activities are safe for you. If you were given a sedative during the procedure, it can affect you for several hours. Do not drive or operate machinery until your health care provider says that it is safe. Watch for any blood in your urine. If the amount of blood in your urine increases, call your health care provider. Follow instructions from your health care provider about eating or drinking restrictions. If a tissue sample was removed for testing (biopsy) during your procedure, it is up to you to get your test results. Ask your health care provider, or the department that is doing the test, when your results will be ready. Drink enough fluid to keep your urine pale yellow. Keep all follow-up visits. This is important. Contact a health care provider if: You have pain that gets worse or does not get better with medicine, especially pain when you urinate. You have trouble urinating. You have more blood in your urine. Get help right away if: You have blood clots in your urine. You have abdominal pain. You have a fever or chills. You are unable to urinate. Summary Cystoscopy is a procedure that is used to help diagnose and sometimes treat conditions that affect the lower urinary tract. Cystoscopy is done using a thin, tube-shaped instrument with a light and camera at the end. After the procedure, it is common to have some soreness or pain in your abdomen and urethra. Watch for any blood in your urine. If the amount of blood in your urine increases, call your health care provider. If you were prescribed an antibiotic medicine, take it as told by your health care provider. Do not stop taking the antibiotic even if you start to feel better. This information is not intended to replace advice given to you by your health care provider. Make sure you discuss any questions you have with your health care provider. Document Revised: 03/07/2022 Document Reviewed: 02/03/2021 Thumbs Up Patient Education 2023 [employer]. Follow Up Care 03/01/2025 16:08:55 With:EDY FOX, Clifton Reilly, URL Address: [facility] [address] , [place] [address]- When: Unknown [facility] [place] 03-16-2025 Note Patient Education Urology Cystoscopy Cystoscopy is a procedure that is used to help diagnose and sometimes treat conditions that affect the lower urinary tract. The lower urinary tract includes the bladder and the urethra. The urethra is the tube that drains urine from the bladder. Cystoscopy is done using a thin, tube-shaped instrument with a light and camera at the end (cystoscope). The cystoscope may be hard or flexible, depending on the goal of the procedure. The cystoscope is inserted through the urethra, into the bladder. Cystoscopy may be recommended if you have: ??? Urinary tract infections that keep coming back. ??? Blood in the urine (hematuria). ??? An inability to control when you urinate (urinary incontinence) or an overactive bladder. ??? Unusual cells found in a urine sample. ??? A blockage in the urethra, such as a urinary stone. ??? Painful urination. ??? An abnormality in the bladder found during an intravenous pyelogram (IVP) or CT scan. Cystoscopy may also be done to remove a sample of tissue to be examined under a microscope (biopsy). Tell a health care provider about: ??? Any allergies you have. ??? All medicines you are taking, including vitamins, herbs, eye drops, creams, and wyds-jmh-btowalj medicines. ??? Any problems you or family members have had with anesthetic medicines. ??? Any blood disorders you have. ??? Any surgeries you have had. ??? Any medical conditions you have. ??? Whether you are or may be . What are the risks? Generally, this is a safe procedure. However, problems may occur, including: ??? Infection. ??? Bleeding. ??? Allergic reactions to medicines. ??? Damage to other structures or organs. What happens before the procedure? Medicines Ask your health care provider about: ??? Changing or stopping your regular medicines. This is especially important if you are taking diabetes medicines or blood thinners. ??? Taking medicines such as aspirin and ibuprofen. These medicines can thin your blood. Do not take these medicines unless your health care provider tells you to take them. ??? Taking biad-gwf-enzjbjb medicines, vitamins, herbs, and supplements. Tests You may have an exam or testing, such as: ??? X-rays of the bladder, urethra, or kidneys. ??? CT scan of the abdomen or pelvis. ??? Urine tests to check for signs of infection. General instructions ??? Follow instructions from your health care provider about eating or drinking restrictions. ??? Ask your health care provider what steps will be taken to help prevent infection. These steps may include: ? Washing skin with a germ-killing soap. ? Taking antibiotic medicine. ??? Plan to have a responsible adult take you home from the hospital or clinic. What happens during the procedure? You will be given one or more of the following: ? A medicine to help you relax (sedative). ? A medicine to numb the area (local anesthetic). ??? The area around the opening of your urethra will be cleaned. ??? The cystoscope will be passed through your urethra into your bladder. ??? Germ-free (sterile) fluid will flow through the cystoscope to fill your bladder. The fluid will stretch your bladder so that your health care provider can clearly examine your bladder ni. ??? Your doctor will look at the urethra and bladder. Your doctor may take a biopsy or remove stones. ??? The cystoscope will be removed, and your bladder will be emptied. The procedure may vary among health care providers and hospitals. What can I expect after the procedure? After the procedure, it is common to have: ??? Some soreness or pain in your abdomen and urethra. ??? Urinary symptoms. These include: ? Mild pain or burning when you urinate. Pain should stop within a few minutes after you urinate. This may last for up to 1 week. ? A small amount of blood in your urine for several days. ? Feeling like you need to urinate but producing only a small amount of urine. Follow these instructions at home: Medicines ??? Take yxky-cpi-qfreyqm and prescription medicines only as told by your health care provider. ??? If you were prescribed an antibiotic medicine, take it as told by your health care provider. Do not stop taking the antibiotic even if you start to feel better. General instructions ??? Return to your normal activities as told by your health care provider. Ask your health care provider what activities are safe for you. ??? If you were given a sedative during the procedure, it can affect you for several hours. Do not drive or operate machinery until your health care provider says that it is safe. ??? Watch for any blood in your urine. If the amount of blood in your urine increases, call your health care provider. ??? Follow instructions from your health care provider about eating or drinking restrictions. ??? If a tissue sample was removed for testing (biopsy) during your (more content not included)... [facility] 03-05-2025 Progress note [facility] 03-05-2025 Progress note [facility] 03-04-2025 Progress note Note Date/Time March 04, 2025 7:00pm [facility] [address] [place] [address] Hospitalist Progress Note Signed Patient: Evelio Irene MR#: [id number] : 1955 Acct:[id number] Age/Sex: 69 / M Adm Date: 5 Loc: 4N Room: 4M7606-2 Type: ADM IN Attending Dr: Troy Rizzo MD Copies to: ~ Date of Service: 03/04/2025 Subjective Subjective Narrative: Patient seen at bedside with partner present. Discussed treatment plans with patient, and he expresses an understanding of the current treatment plan. He states that he was previously told that he may be prone to clotting, and that is why he decided to switch to antiplatelet medications as opposed to the expensive anticoagulation which cost him $300 monthly. However, upon recommendation of another consulting physician expresses that he is open to using Pradaxa which would only cost him approximately $50 a month. Patient had no complaints, only wondering when his procedure was going to occur. Exam Physical Exam Vital Signs: Temp Pulse Resp BP Pulse Ox O2 Del Method O2 Flow Rate 98.4 F 88 18 200/88 H 98 Room Air 3 03/04/25 12:00 03/04/25 12:15 03/04/25 12:15 03/04/25 12:15 03/04/25 12:15 03/04/25 12:15 03/03/25 13:45 Narrative: VITALS: Reviewed. GEN: Healthy appearing, well-developed, pleasant PSYCH: Good Judgment. AOx3. Normal memory, mood, and affect. HEENT -Head: Atraumatic; -Eyes: PERRL, EOMI. No discharge or redness; -Nose: Normal to inspection -Mouth and throat: Moist mucous membranes. NECK: Supple, with no masses. LUNGS: Clear to auscultation SKIN: Warm, well perfused. No skin rashes or abnormal lesions. EXT: No clubbing, cyanosis Objective Lab Results 03/04/25 15:40 03/04/25 02:04 Meds Allergies and Active Meds Allergies No Known Allergies Allergy (Verified 03/03/25 11:26) Active Meds: Active Medications Generic Name Dose Route Start Last Admin Trade Name Freq PRN Reason Stop Dose Admin Atorvastatin Calcium 5 mg 03/04/25 09:00 03/04/25 08:06 Atorvastatin 10 Mg Tablet PO 03/04/26 08:59 5 mg DAILY JULIANNA Administration Calcium Carbonate 1,000 mg 03/03/25 14:47 03/03/25 15:20 Calcium Carbonate 500 Mg Tab.Chew PO 03/03/26 14:46 1,000 mg Q4H PRN Administration Dyspepsia Dextrose 0 gm 03/03/25 15:34 Dextrose 50% In Water 25 Gm/50 Ml Syringe IV-PUSH 03/03/26 15:33 PRN PRN Hypoglycemia Finasteride 5 mg 03/04/25 09:00 03/04/25 08:06 Finasteride 5 Mg Tablet PO 03/04/26 08:59 5 mg DAILY JULIANNA Administration Glucose 0 gm 03/03/25 15:34 Dextrose 40% Gel 15 Gm Tube PO 03/03/26 15:33 PRN PRN Hypoglycemia Alteplase, Recombinant 8 mg/ 100 mls @ 25 mls/hr 03/03/25 14:00 03/04/25 09:45 Sodium Chloride INTRA-INGRID 03/03/26 13:59 Not Given .Q4H JULIANNA 2 MG/HR Sodium Chloride 1,000 mls @ 75 mls/hr 03/03/25 14:30 03/04/25 05:04 0.9% Sodium Chloride 1,000 Ml IV 03/03/26 14:29 Not Given .[id number] JULIANNA Sodium Chloride 1,000 mls @ 35 mls/hr 03/03/25 14:30 03/03/25 14:59 0.9% Sodium Chloride 1,000 Ml INTRACATH 03/03/26 14:29 35 mls/hr .Q24H JULIANNA Administration Heparin Sodium/Sodium Chloride 25,000 unit in 250 mls @ 3 mls/hr 03/03/25 15:45 03/03/25 22:22 Heparin IV 03/03/26 15:44 10 mls/hr .Q24H JULIANNA Infusion Sodium Chloride 500 mls @ 25 mls/hr 03/03/25 22:30 03/04/25 01:26 0.9% Sodium Chloride 500 Ml IV 03/03/26 22:29 25 mls/hr .Q20H JULIANNA Administration Insulin Aspart 0 units 03/03/25 17:00 03/04/25 08:07 Insulin Aspart 300 Units/3 Ml SUBCUT 03/03/26 16:59 Not Given TID.WM.HS JULIANNA Protocol Insulin Aspart 7 units 03/03/25 16:30 03/04/25 08:06 Insulin Aspart 300 Units/3 Ml SUBCUT 03/03/26 16:29 Not Given TID.AC [facility] Insulin Glargine 28 units 03/03/25 22:00 03/03/25 22:22 Insulin Glargine 300 Units/3 Ml Insuln.Pen SUBCUT 03/03/26 21:59 Not Given QHS [facility] Labetalol HCl 10 mg 03/03/25 22:48 Labetalol 100 Mg/20 Ml Vial IV-PUSH 03/03/26 22:47 Q4H PRN Hypertension Lisinopril 5 mg 03/04/25 09:00 03/04/25 08:06 Lisinopril 5 Mg Tablet PO 03/04/26 08:59 5 mg DAILY JULIANNA Administration Metoprolol Succinate 25 mg 03/05/25 09:00 Metoprolol Succinate 25 Mg Tab.Er.24h PO 03/05/26 08:59 DAILY [facility] Sodium Chloride 0 ml 03/03/25 14:19 Sodium Chloride 0.9 % 10 Ml Syringe IV-PUSH 03/03/26 14:18 PRN PRN Flush Terazosin HCl 5 mg 03/04/25 09:00 03/04/25 08:06 Terazosin 5 Mg Capsule PO 03/04/26 08:59 5 mg DAILY JULIANNA Administration Torsemide 20 mg 03/04/25 09:00 03/04/25 08:06 Torsemide 20 Mg Tablet PO 03/04/26 08:59 20 mg DAILY JULIANNA Administration A&P - Hospitalist Assessment/Plan (1) DVT, bilateral lower limbs: Plan: ? With extensive clot burden up to the distal vena cava ? EKOS therapy per vascular surgery ? Pending thrombectomy (2) Bilateral lower extremity edema: Plan: ? Secondary to DVT (3) Hypertension: Plan: ? Lisinopril 5 mg daily ? Will give a dose of lisinopril 20 mg right now and continue this daily ? Will likely need more blood pressure medications but would prefer to have echocardiogram first (4) Diabetes: Plan: ? A1c 6.6% ? We do not have his home dose of insulin here ? Will do weight-based insulin with 28 units glargine, 7 units aspart with #2 sliding scale ACHS (5) Afib: Plan: ? Per cardiology, mainly sinus rhythm with PACs and episode of atrial flutter ? Echocardiogram, transthoracic pending ? TSH and lipid panel within normal limits ? Cardiology consulted, appreciate recommendations Plan ? DVT prophylaxis addressed with heparin IV ? Regular diet ? Full code I personally saw this patient on the day of the encounter, reviewed the history,performed the boyce elements of the exam, formulated the plan of care and confirmed the Resident's assessment and plan. Seen in conjunction with resident Dr. Pascual, continue TPA per primary, to be evaluated by cardiology for concernfor afib. Recommend life long anticoagulation at this point and better blood pressure control. Continue with post void bladder scans. - Andres Bryant DO Documented By: Andres Bryant DO 03/04/25 1226 Signed By: <Electronically signed by Andres Bryant DO> 03/04/25 1900 <Electronically signed by MD VERA Pascual> 03/04/25 1309 [facility] Work Phone: 1(226) 461-734608-28-2025 [place] [address] Hospitalist Progress Note Signed Patient: Evelio Irene MR#: [id number] : 1955 Acct:[id number] Age/Sex: 69 / M Adm Date: 5 Loc: Room: [address] [place] [address] Type: ADM IN Attending Dr: Troy Rizzo MD Copies to: ~ Date of Service: 03/04/2025 Subjective Subjective Narrative: Patient seen at bedside with partner present. Discussed treatment plans with patient, and he expresses an understanding of the current treatment plan. He states that he was previously told that he may be prone to clotting, and that is why he decided to switch to antiplatelet medications as opposed to the expensive anticoagulation which cost him $300 monthly. However, upon recommendation of another consulting physician expresses that he is open to using Pradaxa which would only cost him approximately $50 a month. Patient had no complaints, only wondering when his procedure was going to occur. Exam Physical Exam Vital Signs: Temp Pulse Resp BP Pulse Ox O2 Del Method O2 Flow Rate 98.4 F 88 18 200/88 H 98 Room Air 3 03/04/25 12:00 03/04/25 12:15 03/04/25 12:15 03/04/25 12:15 03/04/25 12:15 03/04/25 12:15 03/03/25 13:45 Narrative: VITALS: Reviewed. GEN: Healthy appearing, well-developed, pleasant PSYCH: Good Judgment. AOx3. Normal memory, mood, and affect. HEENT -Head: Atraumatic; -Eyes: PERRL, EOMI. No discharge or redness; -Nose: Normal to inspection -Mouth and throat: Moist mucous membranes. NECK: Supple, with no masses. LUNGS: Clear to auscultation SKIN: Warm, well perfused. No skin rashes or abnormal lesions. EXT: No clubbing, cyanosis Objective Lab Results 03/04/25 15:40 03/04/25 02:04 Meds Allergies and Active Meds Allergies No Known Allergies Allergy (Verified 03/03/25 11:26) Active Meds: Active Medications Generic Name Dose Route Start Last Admin Trade Name Freq PRN Reason Stop Dose Admin Atorvastatin Calcium 5 mg 03/04/25 09:00 03/04/25 08:06 Atorvastatin 10 Mg Tablet PO 03/04/26 08:59 5 mg DAILY JULIANNA Administration Calcium Carbonate 1,000 mg 03/03/25 14:47 03/03/25 15:20 Calcium Carbonate 500 Mg Tab.Chew PO 03/03/26 14:46 1,000 mg Q4H PRN Administration Dyspepsia Dextrose 0 gm 03/03/25 15:34 Dextrose 50% In Water 25 Gm/50 Ml Syringe IV-PUSH 03/03/26 15:33 PRN PRN Hypoglycemia Finasteride 5 mg 03/04/25 09:00 03/04/25 08:06 Finasteride 5 Mg Tablet PO 03/04/26 08:59 5 mg DAILY JULIANNA Administration Glucose 0 gm 03/03/25 15:34 Dextrose 40% Gel 15 Gm Tube PO 03/03/26 15:33 PRN PRN Hypoglycemia Alteplase, Recombinant 8 mg/ 100 mls @ 25 mls/hr 03/03/25 14:00 03/04/25 09:45 Sodium Chloride INTRA-INGRID 03/03/26 13:59 Not Given .Q4H JULIANNA 2 MG/HR Sodium Chloride 1,000 mls @ 75 mls/hr 03/03/25 14:30 03/04/25 05:04 0.9% Sodium Chloride 1,000 Ml IV 03/03/26 14:29 Not Given .[id number] JULIANNA Sodium Chloride 1,000 mls @ 35 mls/hr 03/03/25 14:30 03/03/25 14:59 0.9% Sodium Chloride 1,000 Ml INTRACATH 03/03/26 14:29 35 mls/hr .Q24H JULIANNA Administration Heparin Sodium/Sodium Chloride 25,000 unit in 250 mls @ 3 mls/hr 03/03/25 15:45 03/03/25 22:22 Heparin IV 03/03/26 15:44 10 mls/hr .Q24H JULIANNA Infusion Sodium Chloride 500 mls @ 25 mls/hr 03/03/25 22:30 03/04/25 01:26 0.9% Sodium Chloride 500 Ml IV 03/03/26 22:29 25 mls/hr .Q20H JULIANNA Administration Insulin Aspart 0 units 03/03/25 17:00 03/04/25 08:07 Insulin Aspart 300 Units/3 Ml SUBCUT 03/03/26 16:59 Not Given TID.WM.HS [facility] Protocol Insulin Aspart 7 units 03/03/25 16:30 03/04/25 08:06 Insulin Aspart 300 Units/3 Ml SUBCUT 03/03/26 16:29 Not Given TID.AC [facility] Insulin Glargine 28 units 03/03/25 22:00 03/03/25 22:22 Insulin Glargine 300 Units/3 Ml Insuln.Pen SUBCUT 03/03/26 21:59 Not Given QHS JULIANNA Labetalol HCl 10 mg 03/03/25 22:48 Labetalol 100 Mg/20 Ml Vial IV-PUSH 03/03/26 22:47 Q4H PRN Hypertension Lisinopril 5 mg 03/04/25 09:00 03/04/25 08:06 Lisinopril 5 Mg Tablet PO 03/04/26 08:59 5 mg DAILY JULIANNA Administration Metoprolol Succinate 25 mg 03/05/25 09:00 Metoprolol Succinate 25 Mg Tab.Er.24h PO 03/05/26 08:59 DAILY JULIANNA Sodium Chloride 0 ml 03/03/25 14:19 Sodium Chloride 0.9 % 10 Ml Syringe IV-PUSH 03/03/26 14:18 PRN PRN Flush Terazosin HCl 5 mg 03/04/25 09:00 03/04/25 08:06 Terazosin 5 Mg Capsule PO 03/04/26 08:59 5 mg DAILY JULIANNA Administration Torsemide 20 mg 03/04/25 09:00 03/04/25 08:06 Torsemide 20 Mg Tablet PO 03/04/26 08:59 20 mg DAILY JULIANNA Administration A&P - Hospitalist Assessment/Plan (1) DVT, bilateral lower limbs: Plan: ? With extensive clot burden up to the distal vena cava ? EKOS therapy per vascular surgery ? Pending thrombectomy (2) Bilateral lower extremity edema: Plan: ? Secondary to DVT (3) Hypertension: Plan: ? Lisinopril 5 mg daily ? Will give a dose of lisinopril 20 mg right now and continue this daily ? Will likely need more blood pressure medications but would prefer to have echocardiogram first (4) Diabetes: Plan: ? A1c 6.6% ? We do not have his home dose of insulin here ? Will do weight-based insulin with 28 units glargine, 7 units aspart with #2 sliding scale ACHS (5) Afib: Plan: ? Per cardiology, mainly sinus rhythm with PACs and episode of atrial flutter ? Echocardiogram, transthoracic pending ? TSH and lipid panel within normal limits ? Cardiology consulted, appreciate recommendations Plan ? DVT prophylaxis addressed with heparin IV ? Regular diet ? Full code I personally saw this patient on the day of the encounter, reviewed the history,performed the boyce elements of the exam, formulated the plan of care and confirmed the Resident's assessment and plan. Seen in conjunction with resident Dr. Pascual, continue TPA per primary, to be evaluated by cardiology for concernfor afib. Recommend life long anticoagulation at this point and better blood pressure control. Continue with post void bladder scans. - Andres Bryant DO Documented By: Andres Bryant DO 03/04/25 1226 Signed By: 03/04/25 1900 03/04/25 1302 [facility]08-28-2025 Consult note Author Any Garcia [facility] Note Date/Time March 04, 2025 11 :49am [facility] [address] [place] [address] Cardiology Consult Note Signed Patient: Evelio Irene MR#: [id number] : 1955 Acct:[id number] Age/Sex: 69 / M Adm Date: 5 Loc: Room: 8Q1929-3 Type: ADM IN Attending Dr: Troy Rizzo MD Copies to: MD Troy Bedoya II, MD Mourhaf A Traboulssi, MD~ Cardiology HPI History of Present Illness Consult Date: 03/04/25 Reason for Consult: Cardiac consultation quested for possible atrial fibrillation and arrhythmia HPI: Mr. Irene is a 69 year old male whom I am seeing for the first time. Patient was admitted electively to proceed with a EKOS to address his lower extremity DVT. Reviewing the record indicate the patient had history of hypercoagulable state with factor V deficiency. He was on chronic anticoagulation since 1999 following presentation with pulmonary emboli and DVT. Patient report because ofcost issue he stopped taking his anticoagulation about 6 months ago which resulted in development of significant DVT of his lower extremity who was admitted electively to proceed with a EKOS to minimize his thrombus burden. During the procedure the patient rhythm noted to be irregular and was suspected to have atrial fibrillation upon/review most of rhythm strips appear to suggest mainly sinus with PACs however a brief episode of atrial flutter was seen. Patient had no previous history of coronary artery disease, congestive heart failure or valvular heart disease. Review of Systems Review of Systems All other systems reviewed & are negative unless noted below or in HPI Constitutional Constitutional: Reports system reviewed and no additional complaints, except as documented and Reports fatigue Eyes Eyes: Reports system reviewed and no additional complaints, except as documented ENT Ears, Nose, Mouth, and Throat: Reports system reviewed and no additional complaints, except as documented Cardiovascular Cardiovascular: Reports system reviewed and no additional complaints, except as documented Respiratory Respiratory: Reports system reviewed and no additional complaints, except as documented Gastrointestinal Gastrointestinal: Reports system reviewed and no additional complaints, except as documented Genitourinary Genitourinary: Reports system reviewed and no additional complaints, except as documented Musculoskeletal Comments: Lower extremity edema and swelling Integumentary/Breasts Skin/Breast: Reports system reviewed and no additional complaints, except as documented Neurologic Neurologic: Reports system reviewed and no additional complaints, except as documented Psychiatric Psychiatric: Reports system reviewed and no additional complaints, except as documented Endocrine Endocrine: Reports system reviewed and no additional complaints, except as documented Hematologic/Lymphatic Hematologic/Lymphatic: Reports system reviewed and no additional complaints, except as documented Allergic/Immunologic Allergic/Immunologic: Reports system reviewed and no additional complaints, except as documented [facility] Medical History DVT (deep venous thrombosis) Colon polyp [place] filter in place Pulmonary embolism Hypertension Renal cancer Diabetes Surgical History History of colonoscopy H/O hernia repair History of nephrectomy, right Family History Brother Leukemia Prostate cancer Mother Diabetes Father Stomach cancer Social History Smoking Status: Former smoker Tobacco Type: cigarettes Substance Use Type: None Meds Medications and Allergies Allergies No Known Allergies Allergy (Verified 03/03/25 11:26) Home Medications finasteride 5 mg tablet 5 mg PO DAILY 01/07/19 [History Confirmed 03/03/25] lisinopril 5 mg tablet 5 mg PO DAILY 01/07/19 [History Confirmed 03/03/25] lovastatin 20 mg tablet 20 mg PO DAILY 01/07/19 [History Confirmed 03/03/25] terazosin 5 mg capsule 5 mg PO DAILY 01/07/19 [History Confirmed 03/03/25] insulin glargine 100 unit-lixisenatide 33 mcg/mL subcutaneous pen (Soliqua 100/33) 60 unit subcut .am 03/02/25 [History Confirmed 03/03/25] insulin regular human 100 unit/mL (3 mL) subcutaneous pen (Novolin R FlexPen) 30unit subcut .dinner 03/02/25 [History Confirmed 03/03/25] rivaroxaban 15 mg (42)-20 mg (9) tablets in a starter pack (Xarelto DVT-PE Treatment 30-Day Starter) 1 tab PO BID 03/02/25 [History Confirmed 03/03/25] Held on 03/03/25. Instructions: Hold until seen by your Primary Care Physician torsemide 20 mg tablet 20 mg PO DAILY 03/02/25 [History Confirmed 03/03/25] Exam Physical Exam Vital Signs: Temp Pulse Resp BP Pulse Ox O2 Del Method O2 Flow Rate 98.6 F 83 16 157/72 H 95 Room Air 3 03/04/25 08:00 03/04/25 11:39 03/04/25 11:39 03/04/25 11:39 03/04/25 11:39 03/04/25 11:39 03/03/25 13:45 Const General: cooperative, comfortable, no acute distress and well developed HEENT Head: atraumatic Mouth: oral mucosae normal Eyes General: appearance normal, both eyes and all related structures Pupils: PERRL Neck Neck: normal visual inspection, supple and no lymphadenopathy noted Neck mass: No Thyroid: thyroid normal Carotids: normal carotid upstroke Chest Chest palpation & inspection: normal inspection of the chest Resp Effort & Inspection: normal respiratory effort Auscultation: clear to auscultation bilaterally Cardio Palpation: normal PMI Rate: regular rate Rhythm: regular rhythm Heart Sounds: S1 normal and S2 normal GI Palpation: soft and no hepatosplenomegaly Percussion: normal to percussion Auscultation: normal bowel sounds Skin General: no rashes or lesions noted and dry skin Neuro General: patient alert, patient awake, patient oriented x3, tone normal and moves all extremities Extrem General: full ROM and capillary refill normal Other: Right leg has edema and swelling Psych Mental Status: mental status grossly normal Results - Cardiology Labs 03/04/25 08:29 03/04/25 02:04 Lab results: Lipids 03/04/25 Range/Units 02:04 Triglycerides 97 (0-149) mg/dL Cholesterol 135 L (140-200) mg/dL HDL Cholesterol 38 (23-92) mg/dL Cholesterol/HDL Ratio 3.6 (<5.0) CBC 03/03/25 03/03/25 03/04/25 Range/Units 14:34 20:40 02:04 RBC 3.43 L 3.39 L 3.31 L (3.90-5.60) x10E6/uL Hgb 10.3 L 10.2 L 9.8 L (13.0-17.0) g/dL Hct 30.5 L 30.4 L 29.3 L (38.8-50.0) % Plt Count 350 303 289 (150-450) x10E3/uL Neut # (Auto) 6.1 8.1 H 6.4 (1.8-7.7) x10E3/uL Lymph # (Auto) 1.5 1.2 1.5 (1.00-4.8) x10E3/uL [place] # (Auto) 1.0 H 1.1 H 1.0 H (0.0-0.8) x10E3/uL Eos # (Auto) 0.1 0.1 0.1 (0.0-0.45) x10E3/uL Baso # (Auto) 0.1 0.1 0.0 (0.0-0.2) x10E3/uL 03/04/25 Range/Units 08:29 RBC 3.22 L (3.90-5.60) x10E6/uL Hgb 9.7 L (13.0-17.0) g/dL Hct 28.9 L (38.8-50.0) % Plt Count 264 (150-450) x10E3/uL Neut # (Auto) 6.0 (1.8-7.7) x10E3/uL Lymph # (Auto) 1.4 (1.00-4.8) x10E3/uL [place] # (Auto) 1.0 H (0.0-0.8) x10E3/uL Eos # (Auto) 0.1 (0.0-0.45) x10E3/uL Baso # (Auto) 0.0 (0.0-0.2) x10E3/uL Comprehensive Metabolic Panel 03/03/25 03/04/25 Range/Units 11:20 02:04 Sodium 141 (136-145) mmol/L Potassium 3.9 (3.5-5.1) mmol/L Chloride 107 (98-107) mmol/L Carbon Dioxide 28.4 (21.0-31.0) mmol/L BUN 25 27 H (7-25) mg/dL Creatinine 1.89 H 1.95 H (0.70-1.30) mg/dL Glucose 87 (70-100) mg/dL Calcium 8.7 (8.6-10.3) mg/dL Intake and Output 03/03/25 03/04/25 03/04/25 23:59 07:59 15:59 Intake Total 300 / 300 100 / 100 Output Total 450 / 750 700 / 700 Balance -150 / -450 -600 / -600 Intake: IV 100 / 100 Alteplase 8 mg In Sodium 100 / 100 Chloride 0.9% 100 ml 92 ml @ 2 MG/HR 25 mls/hr INTRA-INGRID .Q4H JULIANNA Rx#:[id number] Oral 200 / 200 100 / 100 Output: Urine 450 / 750 700 / 700 Other: # Bowel Movements 0 Weight 115.2 kg Date of Last Bowel Movement 03/03/25 03/03/25 Patient Weight 03/04/25 23:59 Weight 115.2 kg Lab 03/03/25 03/03/25 03/04/25 14:34 20:40 02:04 PT 25.3 H 21.1 H 19.6 H INR 2.3 1.9 1.7 APTT 70.1 H 38.2 H 38.7 H 03/04/25 08:29 PT 17.3 H INR 1.5 APTT 34.3 EKG Interpretations EKG Attestation EKG: I reviewed this ECG and interpreted as documented below: (EKG mainly showed sinus with PACs but rhythm strips did demonstrate a brief episode of atrial flutter) A&P - Cardiology (1) DVT, bilateral lower limbs: Code(s): I82.403 - Acute embolism and thrombosis of unspecified deep veins of lower extremity, bilateral Plan Assessment 1. Arrhythmia. His rhythm mainly sinus with PAC but with episode of atrial flutter was noted. 2. No previous history of coronary heart disease, congestive heart failure or significant valvular heart disease 3. 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 Previous history of [place] filter placement Plan 1. Patient made the criteria for lifelong anticoagulation due to history of hypercoagulable state/factor V deficiency which documented before with previous history of PE and DVT and he had clearly recurrent DVT 2. Will add low-dose metoprolol 3. Will check a echocardiogram Documented By: Any Garcia MD 03/04/25 1144 Signed By: <Electronically signed by MD Any Garcia> 03/04/25 114 [facility] Work Phone: 1(119) 999-414508-28-2025 [place] [id number] Cardiology Consult Note Signed Patient: Evelio Irene MR#: [id number] : 1955 Acct:[id number] Age/Sex: 69 / M Adm Date: 5 Loc: Room: 1T6581-4 Type: ADM IN Attending Dr: Troy Rizzo MD Copies to: MD Troy Bedoya II, MD Mourhaf A Traboulssi, MD~ Cardiology HPI History of Present Illness Consult Date: 03/04/25 Reason for Consult: Cardiac consultation quested for possible atrial fibrillation and arrhythmia HPI: Mr. Irene is a 69 year old male whom I am seeing for the first time. Patient was admitted electively to proceed with a EKOS to address his lower extremity DVT. Reviewing the record indicate the patient had history of hypercoagulable state with factor V deficiency. He was on chronic anticoagulation since 1999 following presentation with pulmonary emboli and DVT. Patient report because ofcost issue he stopped taking his anticoagulation about 6 months ago which resulted in development of significant DVT of his lower extremity who was admitted electively to proceed with a EKOS to minimize his thrombus burden. During the procedure the patient rhythm noted to be irregular and was suspected to have atrial fibrillation upon/review most of rhythm strips appear to suggest mainly sinus with PACs however a brief episode of atrial flutter was seen. Patient had no previous history of coronary artery disease, congestive heart failure or valvular heart disease. Review of Systems Review of Systems All other systems reviewed & are negative unless noted below or in HPI Constitutional Constitutional: Reports system reviewed and no additional complaints, except as documented and Reports fatigue Eyes Eyes: Reports system reviewed and no additional complaints, except as documented ENT Ears, Nose, Mouth, and Throat: Reports system reviewed and no additional complaints, except as documented Cardiovascular Cardiovascular: Reports system reviewed and no additional complaints, except as documented Respiratory Respiratory: Reports system reviewed and no additional complaints, except as documented Gastrointestinal Gastrointestinal: Reports system reviewed and no additional complaints, except as documented Genitourinary Genitourinary: Reports system reviewed and no additional complaints, except as documented Musculoskeletal Comments: Lower extremity edema and swelling Integumentary/Breasts Skin/Breast: Reports system reviewed and no additional complaints, except as documented Neurologic Neurologic: Reports system reviewed and no additional complaints, except as documented Psychiatric Psychiatric: Reports system reviewed and no additional complaints, except as documented Endocrine Endocrine: Reports system reviewed and no additional complaints, except as documented Hematologic/Lymphatic Hematologic/Lymphatic: Reports system reviewed and no additional complaints, except as documented Allergic/Immunologic Allergic/Immunologic: Reports system reviewed and no additional complaints, except as documented [facility] Medical History DVT (deep venous thrombosis) Colon polyp [place] filter in place Pulmonary embolism Hypertension Renal cancer Diabetes Surgical History History of colonoscopy H/O hernia repair History of nephrectomy, right Family History Brother Leukemia Prostate cancer Mother Diabetes Father Stomach cancer Social History Smoking Status: Former smoker Tobacco Type: cigarettes Substance Use Type: None Meds Medications and Allergies Allergies No Known Allergies Allergy (Verified 03/03/25 11:26) Home Medications finasteride 5 mg tablet 5 mg PO DAILY 01/07/19 [History Confirmed 03/03/25] lisinopril 5 mg tablet 5 mg PO DAILY 01/07/19 [History Confirmed 03/03/25] lovastatin 20 mg tablet 20 mg PO DAILY 01/07/19 [History Confirmed 03/03/25] terazosin 5 mg capsule 5 mg PO DAILY 01/07/19 [History Confirmed 03/03/25] insulin glargine 100 unit-lixisenatide 33 mcg/mL subcutaneous pen (Soliqua 100/33) 60 unit subcut .am 03/02/25 [History Confirmed 03/03/25] insulin regular human 100 unit/mL (3 mL) subcutaneous pen (Novolin R FlexPen) 30unit subcut .bfwcuw10/26/25 [History Confirmed 03/03/25] rivaroxaban 15 mg (42)-20 mg (9) tablets in a starter pack (Xarelto DVT-PE Treatment 30-Day Starter) 1 tab PO BID 03/02/25 [History Confirmed 03/03/25] Held on 03/03/25. Instructions: Hold until seen by your Primary Care Physician torsemide 20 mg tablet 20 mg PO DAILY 03/02/25 [History Confirmed 03/03/25] Exam Physical Exam Vital Signs: Temp Pulse Resp BP Pulse Ox O2 Del Method O2 Flow Rate 98.6 F 83 16 157/72 H 95 Room Air 3 03/04/25 08:00 03/04/25 11:39 03/04/25 11:39 03/04/25 11:39 03/04/25 11:39 03/04/25 11:39 03/03/25 13:45 Const General: cooperative, comfortable, no acute distress and well developed HEENT Head: atraumatic Mouth: oral mucosae normal Eyes General: appearance normal, both eyes and all related structures Pupils: PERRL Neck Neck: normal visual inspection, supple and no lymphadenopathy noted Neck mass: No Thyroid: thyroid normal Carotids: normal carotid upstroke Chest Chest palpation & inspection: normal inspection of the chest Resp Effort & Inspection: normal respiratory effort Auscultation: clear to auscultation bilaterally Cardio Palpation: normal PMI Rate: regular rate Rhythm: regular rhythm Heart Sounds: S1 normal and S2 normal GI Palpation: soft and no hepatosplenomegaly Percussion: normal to percussion Auscultation: normal bowel sounds Skin General: no rashes or lesions noted and dry skin Neuro General: patient alert, patient awake, patient oriented x3, tone normal and moves all extremities Extrem General: full ROM and capillary refill normal Other: Right leg has edema and swelling Psych Mental Status: mental status grossly normal Results - Cardiology Labs 03/04/25 08:29 03/04/25 02:04 Lab results: Lipids 03/04/25 Range/Units 02:04 Triglycerides 97 (0-149) mg/dL Cholesterol 135 L (140-200) mg/dL HDL Cholesterol 38 (23-92) mg/dL Cholesterol/HDL Ratio 3.6 (<5.0) CBC 03/03/25 03/03/25 03/04/25 Range/Units 14:34 20:40 02:04 RBC 3.43 L 3.39 L 3.31 L (3.90-5.60) x10E6/uL Hgb 10.3 L 10.2 L 9.8 L (13.0-17.0) g/dL Hct 30.5 L 30.4 L 29.3 L (38.8-50.0) % Plt Count 350 303 289 (150-450) x10E3/uL Neut # (Auto) 6.1 8.1 H 6.4 (1.8-7.7) x10E3/uL Lymph # (Auto) 1.5 1.2 1.5 (1.00-4.8) x10E3/uL [place] # (Auto) 1.0 H 1.1 H 1.0 H (0.0-0.8) x10E3/uL Eos # (Auto) 0.1 0.1 0.1 (0.0-0.45) x10E3/uL Baso # (Auto) 0.1 0.1 0.0 (0.0-0.2) x10E3/uL 03/04/25 Range/Units 08:29 RBC 3.22 L (3.90-5.60) x10E6/uL Hgb 9.7 L (13.0-17.0) g/dL Hct 28.9 L (38.8-50.0) % Plt Count 264 (150-450) x10E3/uL Neut # (Auto) 6.0 (1.8-7.7) x10E3/uL Lymph # (Auto) 1.4 (1.00-4.8) x10E3/uL [place] # (Auto) 1.0 H (0.0-0.8) x10E3/uL Eos # (Auto) 0.1 (0.0-0.45) x10E3/uL Baso # (Auto) 0.0 (0.0-0.2) x10E3/uL Comprehensive Metabolic Panel 03/03/25 03/04/25 Range/Units 11:20 02:04 Sodium 141 (136-145) mmol/L Potassium 3.9 (3.5-5.1) mmol/L Chloride 107 (98-107) mmol/L Carbon Dioxide 28.4 (21.0-31.0) mmol/L BUN 25 27 H (7-25) mg/dL Creatinine 1.89 H 1.95 H (0.70-1.30) mg/dL Glucose 87 (70-100) mg/dL Calcium 8.7 (8.6-10.3) mg/dL Intake and Output 03/03/25 03/04/25 03/04/25 23:59 07:59 15:59 Intake Total 300 / 300 100 / 100 Output Total 450 / 750 700 / 700 Balance -150 / -450 -600 / -600 Intake: IV 100 / 100 Alteplase 8 mg In Sodium 100 / 100 Chloride 0.9% 100 ml 92 ml @ 2 MG/HR 25 mls/hr INTRA-INGRID .Q4H JULIANNA Rx#:[id number] Oral 200 / 200 100 / 100 Output: Urine 450 / 750 700 / 700 Other: # Bowel Movements 0 Weight 115.2 kg Date of Last Bowel Movement 03/03/25 03/03/25 Patient Weight 03/04/25 23:59 Weight 115.2 kg Lab 03/03/25 03/03/25 03/04/25 14:34 20:40 02:04 PT 25.3 H 21.1 H 19.6 H INR 2.3 1.9 1.7 APTT 70.1 H 38.2 H 38.7 H 03/04/25 08:29 PT 17.3 H INR 1.5 APTT 34.3 EKG Interpretations EKG Attestation EKG: I reviewed this ECG and interpreted as documented below: (EKG mainly showed sinus with PACs but rhythm strips did demonstrate a brief episode of atrial flutter) A&P - Cardiology (1) DVT, bilateral lower limbs: Code(s): I82.403 - Acute embolism and thrombosis of unspecified deep veins of lower extremity, bilateral Plan Assessment 1. Arrhythmia. His rhythm mainly sinus with PAC but with episode of atrial flutter was noted. 2. No previous history of coronary heart disease, congestive heart failure or significant valvular heart disease 3. 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 Previous history of [place] filter placement Plan 1. Patient made the criteria for lifelong anticoagulation due to history of hypercoagulable state/factor V deficiency which documented before with previous history of PE and DVT and he had clearly recurrent DVT 2. Will add low-dose metoprolol 3. Will check a echocardiogram Documented By: Any Garcia MD 03/04/25 114 Signed By: 03/04/25 1149 [facility]08-27-2025 Consult note Author Andres Bryant [facility] Note Date/Time March 03, 2025 4: 17pm [facility] [address] [place], [place] [address]ist Consult Note Signed Patient: Evelio Irene MR#: [id number] : 1955 Acct:[id number] Age/Sex: 69 / M Adm Date: 5 Loc: Room: 1E4529-7 Type: REG [facility] [place] Attending Dr: Troy Rizzo MD Copies to: MD Troy Bedoya II, MD Shawn J Warner, DO~ HPI DATE OF CONSULTATION: 03/03/25 REQUESTING PROVIDER: Troy Rizzo Consult Narrative Reason for Consult: hypertension HPI: Mr Gerardo is a 69-year-old male seen on hospitalist consultation at the requestof vascular surgery for hypertension. He is admitted the hospital currently in the ICU with an EKOS catheter. These initially planned to have a thrombectomy for right lower extremity DVT today with vascular surgery however upon starting the procedure it was noted that he had extensive blood clot leading to an occlusion of the distal vena cava. Please see operative notes for details on this. Patient is currently resting in the ICU, EKOS catheter is in, his present at bedside. He is resting very comfortably, he has no complaints at all. His medical history is confirmed, he does take his lisinopril every evening. He does report taking his torsemide this morning. When asked about his medical history, he does not mention any diagnosis of atrial fibrillation. He says he was on blood thinners previously for history of blood clots about 13 years ago, due to the cost of his blood thinner he was switched from DOAC to aspirin therapy sometime ago. Review of Systems Review of Systems All other systems reviewed & are negative unless noted below or in HPI [facility] Medical History DVT (deep venous thrombosis) Colon polyp [place] filter in place Pulmonary embolism Hypertension Renal cancer Diabetes Surgical History History of colonoscopy H/O hernia repair History of nephrectomy, right Family History Brother Leukemia Prostate cancer Mother Diabetes Father Stomach cancer Social History Smoking Status: Former smoker Tobacco Type: cigarettes Substance Use Type: None Meds Medications and Allergies Allergies No Known Allergies Allergy (Verified 03/03/25 11:26) Home Medications finasteride 5 mg tablet 5 mg PO DAILY 01/07/19 [History Confirmed 03/03/25] lisinopril 5 mg tablet 5 mg PO DAILY 01/07/19 [History Confirmed 03/03/25] lovastatin 20 mg tablet 20 mg PO DAILY 01/07/19 [History Confirmed 03/03/25] terazosin 5 mg capsule 5 mg PO DAILY 01/07/19 [History Confirmed 03/03/25] insulin glargine 100 unit-lixisenatide 33 mcg/mL subcutaneous pen (Soliqua 100/33) 60 unit subcut .am 03/02/25 [History Confirmed 03/03/25] insulin regular human 100 unit/mL (3 mL) subcutaneous pen (Novolin R FlexPen) 30unit subcut .dinner 03/02/25 [History Confirmed 03/03/25] rivaroxaban 15 mg (42)-20 mg (9) tablets in a starter pack (Xarelto DVT-PE Treatment 30-Day Starter) 1 tab PO BID 03/02/25 [History Confirmed 03/03/25] Held on 03/03/25. Instructions: Hold until seen by your Primary Care Physician torsemide 20 mg tablet 20 mg PO DAILY 03/02/25 [History Confirmed 03/03/25] Active Medications: Active Medications Generic Name Dose Route Start Last Admin Trade Name Freq PRN Reason Stop Dose Admin Calcium Carbonate 1,000 mg 03/03/25 14:47 03/03/25 15:20 Calcium Carbonate 500 Mg Tab.Chew PO 03/03/26 14:46 1,000 mg Q4H PRN Administration Dyspepsia Dextrose 0 gm 03/03/25 15:34 Dextrose 50% In Water 25 Gm/50 Ml Syringe IV-PUSH 03/03/26 15:33 PRN PRN Hypoglycemia Finasteride 5 mg 03/04/25 09:00 Finasteride 5 Mg Tablet PO 03/04/26 08:59 DAILY JULIANNA Glucose 0 gm 03/03/25 15:34 Dextrose 40% Gel 15 Gm Tube PO 03/03/26 15:33 PRN PRN Hypoglycemia Alteplase, Recombinant 8 mg/ 100 mls @ 25 mls/hr 03/03/25 14:00 08/27/25 14:12 Sodium Chloride INTRA-INGRID 03/03/26 13:59 2 mg/hr .Q4H JULIANNA 25 mls/hr 2 MG/HR Administration Sodium Chloride 1,000 mls @ 75 mls/hr 03/03/25 14:30 03/03/25 14:58 0.9% Sodium Chloride 1,000 Ml IV 03/03/26 14:29 75 mls/hr .[id number] JULIANNA Administration Sodium Chloride 1,000 mls @ 35 mls/hr 03/03/25 14:30 03/03/25 14:59 0.9% Sodium Chloride 1,000 Ml INTRACATH 03/03/26 14:29 35 mls/hr .Q24H JULIANNA Administration Heparin Sodium/Sodium Chloride 25,000 unit in 250 mls @ 3 mls/hr 03/03/25 15:45 Heparin IV 03/03/26 15:44 .Q24H JULIANNA Insulin Aspart 0 units 03/03/25 17:00 Insulin Aspart 300 Units/3 Ml SUBCUT 03/03/26 16:59 TID.WM.HS [facility] Protocol Insulin Aspart 7 units 03/03/25 16:30 Insulin Aspart 300 Units/3 Ml SUBCUT 03/03/26 16:29 TID.AC [facility] Insulin Glargine 28 units 03/03/25 22:00 Insulin Glargine 300 Units/3 Ml Insuln.Pen SUBCUT 03/03/26 21:59 QHS JULIANNA Lisinopril 5 mg 03/04/25 09:00 Lisinopril 5 Mg Tablet PO 03/04/26 08:59 DAILY [facility] Non-Formulary Medication 20 mg 03/04/25 09:00 Lovastatin PO 03/04/26 08:59 DAILY JULIANNA Sodium Chloride 0 ml 03/03/25 14:19 Sodium Chloride 0.9 % 10 Ml Syringe IV-PUSH 03/03/26 14:18 PRN PRN Flush Terazosin HCl 5 mg 03/04/25 09:00 Terazosin 5 Mg Capsule PO 03/04/26 08:59 DAILY JULIANNA Torsemide 20 mg 03/04/25 09:00 Torsemide 20 Mg Tablet PO 03/04/26 08:59 DAILY JULIANNA Exam Physical Exam Vital Signs: Temp Pulse Resp BP Pulse Ox O2 Del Method O2 Flow Rate 98.0 F 78 17 194/79 H 98 Room Air 3 03/03/25 14:55 03/03/25 15:00 03/03/25 15:00 03/03/25 15:00 03/03/25 15:00 03/03/25 15:38 03/03/25 13:45 Narrative: General: Awake alert, no acute distress HEENT: head atraumatic, normocephalic, moist mucous membranes Neck: supple no masses, no lymphadenopathy CVS: Regular rate, irregular rhythm, no murmurs or gallops Respiratory: clear to auscultation bilaterally, no wheezing or crackles, symmetric expansion GI: soft, nondistended, nontender, positive bowel sounds with no organomegaly Extremity: moves all extremities, no restrictions of movements, no calf tenderness, lower extremity edema Neuro: AOx3, CN II-VII intact. Moves all extremities in all planes of motion. Skin: dry, intact no rashes or lesions Results - Hospitalist Consult Lab Results Labs: Laboratory Results - last 72 hr 03/03/25 14:34: Corrected WBC 8.8, Uncorrected WBC Count 8.8, RBC 3.43 L, Hgb 10.3 L, Hct 30.5 L, MCV 89.0, MCH 29.9, MCHC 33.7, RDW 14.7, Plt Count 350, MPV 7.3, Neut % (Auto) 69.6, Lymph % (Auto) 17.1, [place] % (Auto) 11.0, Eos % (Auto) 1.7, Baso % (Auto) 0.6, Nucleat RBC Rel Count 0.0, Neut # (Auto) 6.1, Lymph # (Auto) 1.5, [place] # (Auto) 1.0 H, Eos # (Auto) 0.1, Baso # (Auto) 0.1 03/03/25 11:20: PHA Creatinine Clear 47.81, BUN 25, Creatinine 1.89 H, Est GFR (CKD-EPI) 37.718 Assessment & Plan Assessment/Plan (1) DVT, bilateral lower limbs: Plan: ? With extensive clot burden up to the distal vena cava ? EKOS therapy per vascular surgery (2) Bilateral lower extremity edema: Plan: Secondary to above (3) Hypertension: Plan: ? He is on lisinopril 5 mg nightly ? Will give a dose of lisinopril 20 mg right now and continue this daily ? Will likely need more blood pressure medications but would prefer to have echocardiogram first (4) Diabetes: Plan: ? A1c pending ? We do not have his home dose of insulin here ? Will do weight-based insulin with 28 units glargine, 7 units aspart with #2 sliding scale ACHS ? A1c pending (5) Afib: Plan: ? This appears to be a new diagnosis ? EKG does show an occasional Q wave though the rhythm is irregular ? Echocardiogram ? TSH, A1c, lipid panel pending ? Cardiology consulted Plan ? DVT prophylaxis addressed ? Regular diet ? Full code Documented By: Andres Bryant, 03/03/25 1602 Signed By: <Electronically signed by Andres Bryant, > 03/03/25 1617 [facility] Work Phone: [phone]) 423-298308-27-2025 [place] [address] Hospitalist Consult Note Signed Patient: Evelio Irene MR#: [id number] : 1955 Acct:[id number] Age/Sex: 69 / M Adm Date: 5 Loc: Room: [address] [place] [address] Type: REG [facility] Attending Dr: Troy Rizzo MD Copies to: MD Troy Bedoya II, MD Shawn J Warner, DO~ HPI DATE OF CONSULTATION: 03/03/25 REQUESTING PROVIDER: Troy Rizzo Consult Narrative Reason for Consult: hypertension HPI: Mr Irene is a 69-year-old male seen on hospitalist consultation at the requestof vascular surgeryfor hypertension. He is admitted the hospital currently in the ICU with an EKOS catheter. These initially planned to have a thrombectomy for right lower extremity DVT today with vascular surgery however upon starting the procedure it was noted that he had extensive blood clot leading to an occlusion of the distal vena cava. Please see operative notes for details on this. Patient is currently resting in the ICU, EKOS catheter is in, his present at bedside. He is resting very comfortably, hehas no complaints at all. His medical history is confirmed, he does take his lisinopril every evening. He does report taking his torsemide this morning. When asked about his medical history, he does not mention any diagnosis of atrial fibrillation. He says he was on blood thinners previously for history of blood clots about 13 years ago, due to the cost of his blood thinner he was switched from DOAC to aspirin therapy sometime ago. Review of Systems Review of Systems All other systems reviewed & are negative unless noted below or in HPI [facility] Medical History DVT (deep venous thrombosis) Colon polyp [place] filter in place Pulmonary embolism Hypertension Renal cancer Diabetes Surgical History History of colonoscopy H/O hernia repair History of nephrectomy, right Family History Brother Leukemia Prostate cancer Mother Diabetes Father Stomach cancer Social History Smoking Status: Former smoker Tobacco Type: cigarettes Substance Use Type: None Meds Medications and Allergies Allergies No Known Allergies Allergy (Verified 03/03/25 11:26) Home Medications finasteride 5 mg tablet 5 mg PO DAILY 01/07/19 [History Confirmed 03/03/25] lisinopril 5 mg tablet 5 mg PO DAILY 01/07/19 [History Confirmed 03/03/25] lovastatin 20 mg tablet 20 mg PO DAILY 01/07/19 [History Confirmed 03/03/25] terazosin 5 mg capsule 5 mg PO DAILY 01/07/19 [History Confirmed 03/03/25] insulin glargine 100 unit-lixisenatide 33 mcg/mL subcutaneous pen (Soliqua 100/33) 60 unit subcut .am 03/02/25 [History Confirmed 03/03/25] insulin regular human 100 unit/mL (3 mL) subcutaneous pen (Novolin R FlexPen) 30unit subcut .bkblru68/26/25 [History Confirmed 03/03/25] rivaroxaban 15 mg (42)-20 mg (9) tablets in a starter pack (Xarelto DVT-PE Treatment 30-Day Starter) 1 tab PO BID 03/02/25 [History Confirmed 03/03/25] Held on 03/03/25. Instructions: Hold until seen by your Primary Care Physician torsemide 20 mg tablet 20 mg PO DAILY 03/02/25 [History Confirmed 03/03/25] Active Medications: Active Medications Generic Name Dose Route Start Last Admin Trade Name Shahana PRN Reason Stop Dose Admin Calcium Carbonate 1,000 mg 03/03/25 14:47 03/03/25 15:20 Calcium Carbonate 500 Mg Tab.Chew PO 03/03/26 14:46 1,000 mg Q4H PRN Administration Dyspepsia Dextrose 0 gm 03/03/25 15:34 Dextrose 50% In Water 25 Gm/50 Ml Syringe IV-PUSH 03/03/26 15:33 PRN PRN Hypoglycemia Finasteride 5 mg 03/04/25 09:00 Finasteride 5 Mg Tablet PO 03/04/26 08:59 DAILY JULIANNA Glucose 0 gm 03/03/25 15:34 Dextrose 40% Gel 15 Gm Tube PO 03/03/26 15:33 PRN PRN Hypoglycemia Alteplase, Recombinant 8 mg/ 100 mls @ 25 mls/hr 03/03/25 14:00 03/03/25 14:12 Sodium Chloride INTRA-INGRID 03/03/26 13:59 2 mg/hr .Q4H JULIANNA 25 mls/hr 2 MG/HR Administration Sodium Chloride 1,000 mls @ 75 mls/hr 03/03/25 14:30 03/03/25 14:58 0.9% Sodium Chloride 1,000 Ml IV 03/03/26 14:29 75 mls/hr .[id number] JULIANNA Administration Sodium Chloride 1,000 mls @ 35 mls/hr 03/03/25 14:30 03/03/25 14:59 0.9% Sodium Chloride 1,000 Ml INTRACATH 03/03/26 14:29 35 mls/hr .Q24H JULIANNA Administration Heparin Sodium/Sodium Chloride 25,000 unit in 250 mls @ 3 mls/hr 03/03/25 15:45 Heparin IV 03/03/26 15:44 .Q24H JULIANNA Insulin Aspart 0 units 03/03/25 17:00 Insulin Aspart 300 Units/3 Ml SUBCUT 03/03/26 16:59 TID.WM.HS [facility] Protocol Insulin Aspart 7 units 03/03/25 16:30 Insulin Aspart 300 Units/3 Ml SUBCUT 03/03/26 16:29 TID.AC JULIANNA Insulin Glargine 28 units 03/03/25 22:00 Insulin Glargine 300 Units/3 Ml Insuln.Pen SUBCUT 03/03/26 21:59 QHS [facility] Lisinopril 5 mg 03/04/25 09:00 Lisinopril 5 Mg Tablet PO 03/04/26 08:59 DAILY [facility] Non-Formulary Medication 20 mg 03/04/25 09:00 Lovastatin PO 03/04/26 08:59 DAILY [facility] Sodium Chloride 0 ml 03/03/25 14:19 Sodium Chloride 0.9 % 10 Ml Syringe IV-PUSH 03/03/26 14:18 PRN PRN Flush Terazosin HCl 5 mg 03/04/25 09:00 Terazosin 5 Mg Capsule PO 03/04/26 08:59 DAILY [facility] Torsemide 20 mg 03/04/25 09:00 Torsemide 20 Mg Tablet PO 03/04/26 08:59 DAILY [facility] Exam Physical Exam Vital Signs: Temp Pulse Resp BP Pulse Ox O2 Del Method O2 Flow Rate 98.0 F 78 17 194/79 H 98 Room Air 3 03/03/25 14:55 03/03/25 15:00 03/03/25 15:00 03/03/25 15:00 03/03/25 15:00 03/03/25 15:38 03/03/25 13:45 Narrative: General: Awake alert, no acute distress HEENT: head atraumatic, normocephalic, moist mucous membranes Neck: supple no masses, no lymphadenopathy CVS: Regular rate, irregular rhythm, no murmurs or gallops Respiratory: clear to auscultation bilaterally, no wheezing or crackles, symmetric expansion GI: soft, nondistended, nontender, positive bowel sounds with no organomegaly Extremity: moves all extremities, no restrictions of movements, no calf tenderness, lower extremityedema Neuro: AOx3, CN II-VII intact. Moves all extremities in all planes of motion. Skin: dry, intact no rashes or lesions Results - Hospitalist Consult Lab Results Labs: Laboratory Results - last 72 hr 03/03/25 14:34: Corrected WBC 8.8, Uncorrected WBC Count 8.8, RBC 3.43 L, Hgb 10.3 L, Hct 30.5 L, MCV 89.0, MCH 29.9, MCHC 33.7, RDW 14.7, Plt Count 350, MPV 7.3, Neut % (Auto) 69.6, Lymph % (Auto) 17.1, [place] % (Auto) 11.0, Eos % (Auto) 1.7, Baso % (Auto) 0.6, Nucleat RBC Rel Count 0.0, Neut # (Auto) 6.1, Lymph # (Auto) 1.5, [place] # (Auto) 1.0 H, Eos # (Auto) 0.1, Baso # (Auto) 0.1 03/03/25 11:20: PHA Creatinine Clear 47.81, BUN 25, Creatinine 1.89 H, Est GFR (CKD-EPI) 37.718 Assessment & Plan Assessment/Plan (1) DVT, bilateral lower limbs: Plan: ? With extensive clot burden up to the distal vena cava ? EKOS therapy per vascular surgery (2) Bilateral lower extremity edema: Plan: Secondary to above (3) Hypertension: Plan: ? He is on lisinopril 5 mg nightly ? Will give a dose of lisinopril 20 mg right now and continue this daily ? Will likely need more blood pressure medications but would prefer to have echocardiogram first (4) Diabetes: Plan: ? A1c pending ? We do not have his home dose of insulin here ? Will do weight-based insulin with 28 units glargine, 7 units aspart with #2 sliding scale ACHS ? A1c pending (5) Afib: Plan: ? This appears to be a new diagnosis ? EKG does show an occasional Q wave though the rhythm is irregular ? Echocardiogram ? TSH, A1c, lipid panel pending ? Cardiology consulted Plan ? DVT prophylaxis addressed ? Regular diet ? Full code Documented By: Andres Bryant DO 03/03/25 1602 Signed By: 03/03/25 1617 [facility]08-26-2025 Evaluation note* Diagnosis Onset Date Resolution Status Admit Date Bilateral lower extremity edema acut e March 02, 2025 9:52am DVT (deep venous thrombosis) acute March 02, 2025 9:52am DVT, bilateral lower limbs acute March 02, 2025 9:52am Afib acute March 03, 025 2:22pm Bilateral lower extremity edema acut e March 03, 2025 2:22pm Diabetes acute March 03, 2 025 2:22pm DVT, bilateral lower limbs acute March 03, 2025 2:22pm Hypertension acute March 03, 2025 2:22pm [facility] Work Phone: 1([phone]) 724-411708-25-2025 Hospital Discharge instructions Patient Education 03/01/2025 10:23:02 Urinary Tract Infection, Adult Urinary Tract Infection, Adult A urinary tract infection (UTI) is an infection of any part of the urinary tract. The urinary tractincludes the kidneys, ureters, bladder, and urethra. These organs make, store, and get rid of urinein the body. An upper UTI affects the ureters and kidneys. A lower UTI affects the bladder and urethra. What are the causes? Most urinary tract infections are caused by bacteria in your genital area around your urethra, where urine leaves your body. These bacteria grow and cause inflammation of your urinary tract. What increases the risk? You are more likely to develop this condition if: You have a urinary catheter that stays in place. You are not able to control when you urinate or have a bowel movement (incontinence). You are female and you: ?Use a spermicide or diaphragm for control. ?Have low estrogen levels. ?Are . You have certain genes that increase your risk. You are sexually active. You take antibiotic medicines. You have a condition that causes your flow of urine to slow down, such as: ?An enlarged prostate, if you are male. ?Blockage in your urethra. ?A kidney stone. ?A nerve condition that affects your bladder control (neurogenic bladder). ?Not getting enough to drink, or not urinating often. You have certain medical conditions, such as: ?Diabetes. ?A weak disease-fighting system (immunesystem). ?Sickle cell disease. ?Gout. ?Spinal cord injury. What are the signs or symptoms? Symptoms of this condition include: Needing to urinate right away (urgency). Frequent urination. This may include small amounts of urine each time you urinate. Pain or burning with urination. Blood in the urine. Urine that smells bad or unusual. Trouble urinating. Cloudy urine. Vaginal discharge, if you are female. Pain in the abdomen or the lower back. You may also have: Vomiting or a decreased appetite. Confusion. Irritability or tiredness. A fever or chills. Diarrhea. The first symptom in older adults may be confusion. In some cases, they may not have any symptoms until the infection has worsened. How is this diagnosed? This condition is diagnosed based on your medical history and a physical exam. You may also have other tests, including: Urine tests. Blood tests. Tests for STIs (sexually transmitted infections). If you have had more than one UTI, a cystoscopy or imaging studies may be done to determine the cause of the infections. How is this treated? Treatment for this condition includes: Antibiotic medicine. Zeyw-iir-idlpafd medicines to treat discomfort. Drinking enough water to stay hydrated. If you have frequent infections or have other conditions such as a kidney stone, you may need to see a health care provider who specializes in the urinary tract (urologist). In rare cases, urinary tract infections can cause sepsis. Sepsis is a life- threatening condition that occurs when the body responds to an infection. Sepsis is treated in the hospital with IV antibiotics, fluids, and other medicines. Follow these instructions at home: Medicines Take qvwa-gaj-typeijc and prescription medicines only as told by your health care provider. If you were prescribed an antibiotic medicine, take it as told by your health care provider. Do notstop using the antibiotic even if you start to feel better. General instructions Make sure you: ?Empty your bladder often and completely. Do not hold urine for long periods of time. ?Empty your bladder after sex. ?Wipe from front to back after urinating or having a bowel movement if you are female. Use each tissue only one time when you wipe. Drink enough fluid to keep your urine pale yellow. Keep all follow-up visits. This is important. Contact a health care provider if: Your symptoms do not get better after 1 2 days. Your symptoms go away and then return. Get help right away if: You have severe pain in your back or your lower abdomen. You have a fever or chills. You have nausea or vomiting. Summary A urinary tract infection (UTI) is an infection of any part of the urinary tract, which includes the kidneys, ureters, bladder, and urethra. Most urinary tract infections are caused by bacteria in your genital area. Treatment for this condition often includes antibiotic medicines. If you were prescribed an antibiotic medicine, take it as told by your health care provider. Do notstop using the antibiotic even if you start to feel better. Keep all follow-up visits. This is important. This information is not intended to replace advice given to you by your health care provider. Make sure you discuss any questions you have with your health care provider. Document Revised: 01/29/2021 Document Reviewed: 02/03/2021 [employer] Patient Education 2023 [employer]. 03/01/2025 10:19:37 Cystoscopy Cystoscopy Cystoscopy is a procedure that is used to help diagnose and sometimes treat conditions that affect the lower urinary tract. The lower urinary tract includes the bladder and the urethra. The urethra is the tube that drains urine from the bladder. Cystoscopy is done using a thin, tube-shaped instrument with a light and camera at the end (cystoscope). The cystoscope may be hard or flexible, depending on the goal of the procedure. The cystoscope is inserted through the urethra, into the bladder. Cystoscopy may be recommended if you have: Urinary tract infections that keep coming back. Blood in the urine (hematuria). An inability to control when you urinate (urinary incontinence) or an overactive bladder. Unusual cells found in a urine sample. A blockage in the urethra, such as a urinary stone. Painful urination. An abnormality in the bladder found during an intravenous pyelogram (IVP) or CT scan. Cystoscopy may also be done to remove a sample of tissue to be examined under a microscope (biopsy). Tell a health care provider about: Any allergies you have. All medicines you are taking, including vitamins, herbs, eye drops, creams, and itgi-mot-fdipsdy medicines. Any problems you or family members have had with anesthetic medicines. Any blood disorders you have. Any surgeries you have had. Any medical conditions you have. Whether you are or may be . What are the risks? Generally, this is a safe procedure. However, problems may occur, including: Infection. Bleeding. Allergic reactions to medicines. Damage to other structures or organs. What happens before the procedure? Medicines Ask your health care provider about: Changing or stopping your regular medicines. This is especially important if you are taking diabetes medicines or blood thinners. Taking medicines such as aspirin and ibuprofen. These medicines can thin your blood. Do not take these medicines unless your health care provider tells you to take them. Taking facd-blq-tmxatzj medicines, vitamins, herbs, and supplements. Tests You may have an exam or testing, such as: X-rays of the bladder, urethra, or kidneys. CT scan of the abdomen or pelvis. Urine tests to check for signs of infection. General instructions Follow instructions from your health care provider about eating or drinking restrictions. Ask your health care provider what steps will be taken to help prevent infection. These steps may include: ?Washing skin with a germ-killing soap. ?Taking antibiotic medicine. Plan to have a responsible adult take you home from the hospital or clinic. What happens during the procedure? You will be given one or more of the following: ?A medicine to help you relax (sedative). ?A medicine to numb the area (local anesthetic). The area around the opening of your urethra will be cleaned. The cystoscope will be passed through your urethra into your bladder. Germ-free (sterile) fluid will flow through the cystoscope to fill your bladder. The fluid will stretch your bladder so that your health care provider can clearly examine your bladder ni. Your doctor will look at the urethra and bladder. Your doctor may take a biopsy or remove stones. The cystoscope will be removed, and your bladder will be emptied. The procedure may vary among health care providers and hospitals. What can I expect after the procedure? After the procedure, it is common to have: Some soreness or pain in your abdomen and urethra. Urinary symptoms. These include: ?Mild pain or burning when you urinate. Pain should stop within a few minutes after you urinate. This may last for up to 1 week. ?A small amount of blood in your urine for several days. ?Feeling like you need to urinate but producing only a small amount of urine. Follow these instructions at home: Medicines Take jeeh-tie-werkzbf and prescription medicines only as told by your health care provider. If you were prescribed an antibiotic medicine, take it as told by your health care provider. Do notstop taking the antibiotic even if you start to feel better. General instructions Return to your normal activities as told by your health care provider. Ask your health care provider what activities are safe for you. If you were given a sedative during the procedure, it can affect you for several hours. Do not drive or operate machinery until your health care provider says that it is safe. Watch for any blood in your urine. If the amount of blood in your urine increases, call your healthcare provider. Follow instructions from your health care provider about eating or drinking restrictions. If a tissue sample was removed for testing (biopsy) during your procedure, it is up to you to get your test results. Ask your health care provider, or the department that is doing the test, when yourresults will be ready. Drink enough fluid to keep your urine pale yellow. Keep all follow-up visits. This is important. Contact a health care provider if: You have pain that gets worse or does not get better with medicine, especially pain when you urinate. You have trouble urinating. You have more blood in your urine. Get help right away if: You have blood clots in your urine. You have abdominal pain. You have a fever or chills. You are unable to urinate. Summary Cystoscopy is a procedure that is used to help diagnose and sometimes treat conditions that affect the lower urinary tract. Cystoscopy is done using a thin, tube-shaped instrument with a light and camera at the end. After the procedure, it is common to have some soreness or pain in your abdomen and urethra. Watch for any blood in your urine. If the amount of blood in your urine increases, call your healthcare provider. If you were prescribed an antibiotic medicine, take it as told by your health care provider. Do notstop taking the antibiotic even if you start to feel better. This information is not intended to replace advice given to you by your health care provider. Make sure you discuss any questions you have with your health care provider. Document Revised: 03/07/2022 Document Reviewed: 02/03/2021 Thumbs Up Patient Education 2023 [employer]. Follow Up Care 02/26/2025 10:22:11 With:EDY FOX, Clifton Reilly, URL Address: [address] [place] [phone] When: Unknown [facility] 08-25-2025 NotePatient Education Obstetrics and Gynecology Urinary Tract Infection, Adult A urinary tract infection (UTI) is an infection of any part of the urinary tract. The urinary tractincludes the kidneys, ureters, bladder, and urethra. These organs make, store, and get rid of urinein the body. An upper UTI affects the ureters and kidneys. A lower UTI affects the bladder and urethra. What are the causes? Most urinary tract infections are caused by bacteria in your genital area around your urethra, where urine leaves your body. These bacteria grow and cause inflammation of your urinary tract. What increases the risk? You are more likely to develop this condition if: ??? You have a urinary catheter that stays in place. ??? You are not able to control when you urinate or have a bowel movement (incontinence). ??? You are female and you: ? Use a spermicide or diaphragm for control. ? Have low estrogen levels. ? Are . ??? You have certain genes that increase your risk. ??? You are sexually active. ??? You take antibiotic medicines. ??? You have a condition that causes your flow of urine to slow down, such as: ? An enlarged prostate, if you are male. ? Blockage in your urethra. ? A kidney stone. ? A nerve condition that affects your bladder control (neurogenic bladder). ? Not getting enough to drink, or not urinating often. ??? You have certain medical conditions, such as: ? Diabetes. ? A weak disease-fighting system (immunesystem). ? Sickle cell disease. ? Gout. ? Spinal cord injury. What are the signs or symptoms? Symptoms of this condition include: ??? Needing to urinate right away (urgency). ??? Frequent urination. This may include small amounts of urine each time you urinate. ??? Pain or burning with urination. ??? Blood in the urine. ??? Urine that smells bad or unusual. ??? Trouble urinating. ??? Cloudy urine. ??? Vaginal discharge, if you are female. ??? Pain in the abdomen or the lower back. You may also have: ??? Vomiting or a decreased appetite. ??? Confusion. ??? Irritability or tiredness. ??? A fever or chills. ??? Diarrhea. The first symptom in older adults may be confusion. In some cases, they may not have any symptoms until the infection has worsened. How is this diagnosed? This condition is diagnosed based on your medical history and a physical exam. You may also have other tests, including: ??? Urine tests. ??? Blood tests. ??? Tests for STIs (sexually transmitted infections). If you have had more than one UTI, a cystoscopy or imaging studies may be done to determine the cause of the infections. How is this treated? Treatment for this condition includes: ??? Antibiotic medicine. ??? Iqus-iam-qtbtjng medicines to treat discomfort. ??? Drinking enough water to stay hydrated. If you have frequent infections or have other conditions such as a kidney stone, you may need to see a health care provider who specializes in the urinary tract (urologist). In rare cases, urinary tract infections can cause sepsis. Sepsis is a life- threatening condition that occurs when the body responds to an infection. Sepsis is treated in the hospital with IV antibiotics, fluids, and other medicines. Follow these instructions at home: Medicines ??? Take qmec-yby-jcslicw and prescription medicines only as told by your health care provider. ??? If you were prescribed an antibiotic medicine, take it as told by your health care provider. Donot stop using the antibiotic even if you start to feel better. General instructions ??? Make sure you: ? Empty your bladder often and completely. Do not hold urine for long periods of time. ? Empty your bladder after sex. ? Wipe from front to back after urinating or having a bowel movement if you are female. Use each tissue only one time when you wipe. ??? Drink enough fluid to keep your urine pale yellow. ??? Keep all follow-up visits. This is important. Contact a health care provider if: ??? Your symptoms do not get better after 1?2 days. ??? Your symptoms go away and then return. Get help right away if: ??? You have severe pain in your back or your lower abdomen. ??? You have a fever or chills. ??? You have nausea or vomiting. Summary ??? A urinary tract infection (UTI) is an infection of any part of the urinary tract, which includes the kidneys, ureters, bladder, and urethra. ??? Most urinary tract infections are caused by bacteria in your genital area. ??? Treatment for this condition often includes antibiotic medicines. ??? If you were prescribed an antibiotic medicine, take it as told by your health care provider. Donot stop using the antibiotic even if you start to feel better. ??? Keep all follow-up visits. This is important. This information is not intended to replace advice given to you by your health care provider. Make sure you di (more content not included)...[facility]08-20-2025 Telephone encounter Note* Telephone Encounter - RAY Nieves 02/24/2025 12:57 PM EDT Reviewed with pt today [facility] [id number] Miscellaneous Notes* Telephone Encounter - RAY Nieves - 02/24/2025 12:57 PM EDT Reviewed with pt today * Telephone Encounter - ANU COBB - 02/23/2025 2:[address] report in the chart. documented in this encounterResearch Psychiatric [id number] History of Present illness Narrative* RAY Nieves - 02/24/2025 9:30 AM EDT Images from the original note were not included. HPI Results Additional comments: Had CT abdomen completed d/t history of kidney cancer. Here to discuss resultsof that. Last edited by Violette Crump LPN on 02/24/2025 9:25 AM. Subjective Patient ID: Evelio Irene is a 69 y.o. male who presents [...] evening and 1 each before bedtime. Lancets ([employer] DelUkash Plus [id number]) misc USE TWICE DAILY FOR FINGER STICK [...] lb 6.4 oz SpO2 97% BMI 31.98 kg/m Smoking Status Former BSA 2.38 m Review of Systems Constitutional: Positive for fatigue. [...] days, then 20 mg daily. - HYDROcodone-acetaminophen (Inkom) 5-325 MG tablet; Take 1 tablet by mouth every 6 (six) hours if needed for severe pain for up to 5 days Will have patient hold the ASA and start Xarelto as prescribed. Patient does have a [place] Filter in place. OARRS report generated and reviewed. Inkom sent in for pt. Advised of potential [...] a copy will be sent to Dr. Snow. Start Cipro as prescribed. Stay hydrated. He will contact Dr. Snow to set up a follow up appointment. He will try to come by the office later to provide urine sample. History of DVT (deep vein thrombosis) Xarelto as prescribed. Due to h/o clots in the past, pt may be a candidate for mcc anticoagulation. Localized edema Elevate when possible. Consider compression stockings. Continue Torsemide. Advised the swelling is likely aggravated by the current DVT. Did consult Dr. Shailesh Tello regarding treatment for the DVT. Follow up in about 2 weeks (around 03/10/2025) for Recheck. documented in this encounterResearch Psychiatric [id number] Telephone encounter Note* Telephone Encounter - ANU COBB - 02/23/2025 2:[address] report in the chart. Research Psychiatric [id number] History of Present illness Narrative* Nino Hammonds MD - 02/15/2025 4:30 PM EDT Images from the original note were not included. Subjective Patient ID: Evelio Irene is a 69 y.o. male who presents [...] evening and 1 each before bedtime. Lancets ([employer] Plus [id number]) misc USE TWICE DAILY FOR FINGER STICK [...] Wt 255 lb SpO2 98% BMI 33.64 kg/m Smoking Status Former BSA 2.44 m Review of Systems Musculoskeletal: Positive for back [...] not working Chronic kidney disease, stage 3b ([facility]) - CT abdomen wo IV contrast; Future - Need to r/o kidney stone/obstruction Follow up in about 1 week (around 02/22/2025). documented in this encounterResearch Psychiatric [id number] History of Present illness Narrative* Nino Hammonds MD - 02/08/2025 3:45 PM EDT Images from the original note were not included. Subjective Patient ID: Evelio Irene is a 69 y.o. male who presents [...] evening and 1 each before bedtime. Lancets ([employer] Delica Plus [id number]) misc USE TWICE DAILY FOR FINGER STICK [...] 248 lb SpO2 (!) 87% BMI 32.72 kg/m Smoking Status Former BSA 2.4 m Review of Systems Objective Physical Exam Constitutional: [...] Review, F/U med changes. documented in this encounterResearch Psychiatric [id number] History of Present illness Narrative* Nino Hammonds MD - 01/11/2025 11:00 AM EDT Images from the original note were not included. HPI Follow-up Additional comments: [facility] ER 01/01/25 dx: back pain,URI discharged home rx for zpack,benzonate Last edited by Denita Maxwell LPN on 01/11/2025 10:48 AM. Subjective Patient ID: Evelio Irene is a 69 y.o. male who presents for Follow-up ([facility] ER 01/01/25 dx: backpain,URI discharged home rx for zpack,benzonate). Flowsheet Row Patient Outreach from 01/04/2025 in [facility] with Liz Pearson LPN Hospital Information ED, Hospital or Penitentiary Facility Discharge? ED Patient has been contacted within 2 days of being seen in the ED Yes Diagnosis back pain, upper resiratory infection. Discharge Date 01/01/25 Discharged To: Home Setting Discharge Hospital [facility] Engagement Call Start Time 922 Admission Date 01/01/25 Medications Discharge medications reviewed and reconciled from hospital? Yes Is the patient having any side effects they believe may be caused by any medication additions or changes? No Does the patient have all medications ordered at discharge? Yes Medication Comments Started on Z-pack and given PRN Benzonate for cough. Appointments Does the patient have a primary care provider? Yes [appt 01/11] Does the patient have any upcoming specialty appointments? No Self Management Does patient have home health? no Patient Teaching Does the patient have access to their discharge instructions? Yes What is the patient's perception of their health status since discharge? Improving Is the patient/caregiver able to teach back the hierarchy of who to call/visit for symptoms/problems? PCP, Specialist, Home Health nurse, Urgent Care, ED, 911 Yes Wrap Up Wrap Up Additional Comments Labs, Chest X-ray, Pulmonary perfusion imaging, ECG all completesd. Unable to have CT d/t one kidney. D- dimer over 7 Call End Time 09 Pt states his cough is much better denies any further hemoptysis Current Outpatient Medications on File Prior to [...] evening and 1 each before bedtime. Lancets (R17Touch Delica Plus [id number]) misc USE TWICE DAILY FOR FINGER STICK [...] date: 07/08/1960 Quit date: 07/08/1999 Years since quittin.5 Smokeless tobacco: Never Substance Use Topics Alcohol [...] HERNIA REPAIR Right inguinal NEPHRECTOMY Visit Vitals Ht 6' 1 BMI 32.19 kg/m Smoking Status Former BSA 2.39 m Review of Systems Objective Physical Exam Constitutional: [...] Abdomen is soft. Musculoskeletal: Right lower leg: No edema. Left lower leg: No edema. Neurological: Mental Status: He is alert. Psychiatric: Mood and Affect: Mood normal. Thought Content: Thought content normal. Assessment/Plan Diagnoses and all orders for this visit: Acute bronchiolitis due to unspecified organism - The patient was seen today in follow up of recent hospital ER visit. All available hospital records/labs/diagnostics were reviewed and discussed with the patient. ER discharge meds were reviewed. Any changes to plan are as noted. - Symptoms have resolved. No follow-ups on file. documented in this encounterResearch Psychiatric [id number] History of Present illness Narrative* Nino Hammonds MD - 10/26/2024 9:00 AM EDT Images from the original note were not included. Subjective : Chief Complaint: Evelio Irene is an 69 y.o. male here for an annual wellness visit. I have reviewed and reconciled the history and medication list with the patient today. Current Outpatient Medications Medication Sig Dispense Refill aspirin 81 MG EC tablet Take 81 mg by mouth Daily finasteride (Proscar) 5 MG tablet TAKE 1 TABLET BY MOUTH EVERY DAY IN THE MORNING 90 tablet 4 glucose blood (R17Touch Ultra) test strip 1 each by Other route in the morning and 1 each in the evening and 1 each before bedtime. Use as instructedTEST 3 TIMES DAILY DIRECTED E11.65. 300 strip2 insulin glargine-lixisenatide (Soliqua) 100-33 UNT-MCG/ML pen INJECT 60 UNITS UNDER THE SKIN IN THEMORNING BEFORE MEALS 18 mL 11 insulin pen [...] each before bedtime. Lancets (OneTouch Delica Plus [id number]) [facility] USE TWICE DAILY FOR FINGER STICK E11.65 [...] Do you have a medical power of consumer experience consultant?: No Objective : BP 130/76 Pulse 66 [...] a living will and durable power of consumer experience consultant for healthcare. We discussed telling boyce people [...] on October 26, 2024 documented in this encounterResearch Psychiatric [id number] Hospital Discharge instructions Patient Education 06/26/2024 11:46:33 Prostate Cancer Screening Prostate Cancer Screening Prostate cancer screening is testing that is done to check for the presence of prostate cancer in men. The prostate gland is a walnut-sized gland that is located below the bladder and in front of therectum in males. The function of the prostate is to add fluid to semen during ejaculation. Prostatecancer is one of the most common types of cancer in men. Who should have prostate cancer screening? Screening recommendations vary based on age and other risk factors, as well as between the professional organizations who make the recommendations. In general, screening is recommended if: You are age 50 to 70 and have an average risk for prostate cancer. You should talk with your healthcare provider about your need for screening and [...] diagnosed with prostate cancer. The risk is higherif your family member's cancer occurred at an early age or if you have multiple family members withprostate cancer at an early age. ?Being a [...] is a blood test called the prostate-specific antigen(PSA) test. PSA is a protein that is [...] treatment? Where to find more information The [place] [employer]: www.cancer.org [place] [employer]: www.auanet.org Contact a health care [...] the recommended screening test for prostate cancer, butit has associated risks. Discuss the risks and [...] provider. Document Revised: 12/18/2021 Document Reviewed: 12/18/2021 Thumbs Up Patient Education 2023 [employer]. Follow Up Care 01/28/2023 11:23:23 With:EDY FOX, Clifton Reilly, URL Address: [address] [place] [address]- When: Unknown [facility] 12-20-2024 NotePatient Education Oncology Prostate Cancer Screening Prostate cancer screening is testing that is done to check for the presence of prostate cancer in men. The prostate gland is a walnut-sized gland that is located below the bladder and in front of therectum in males. The function of the prostate is to add fluid to semen during ejaculation. Prostatecancer is one of the most common types [...] is a blood test called the prostate-specific antigen(PSA) test. PSA is a protein that is [...] prostate gland for testing (biopsy). This is theonly way to know for certain if you [...] Where to find more information ??? The [place] [employer]: www.cancer.org ??? [place] [employer] Association: www.auanet.org Contact a health care [...] men. The prostate gland (more content not included)...[facility]12-19-2024 History of Present illness Narrative* Nino Hammonds MD - 06/25/2024 10:00 AM EST Images from the original note were not included. Subjective Patient ID: Evelio Irene is a 69 y.o. male who presents for Diabetes. Diabetes Mellitus Patient presents for follow up of diabetes. Current symptoms include: paresthesia of the feet. Patient denies foot ulcerations, hypoglycemia , polydipsia, polyuria, visual disturbances, and vomiting.Evaluation to date has included: fasting blood sugar, fasting lipid panel, hemoglobin A1C, and micro albuminuria. Home sugars: BGs range between 150 and [...] INJECT 60 UNITS UNDER THE SKIN IN THEMORNING BEFORE MEALS 18 mL 11 insulin pen [...] evening and 1 each before bedtime. Lancets ([employer] DelUkash Plus [id number]) misc USE TWICE DAILY FOR FINGER STICK [...] neuropathy, with long-term current use of insulin ([facility]) - POCT Glycated hemoglobin, total - FSBS log shows good control, most recent A1C is at or near goal. Continue current treatment plan as previously outlined without changes. Flu vaccine need - Influenza, high-dose seasonal, quadrivalent, PF (QSH189) (Fluzone High Dose [place] 0.7mL dose) Follow up in about 4 months (around 10/24/2024) for DM- A1C. documented in this encounterResearch Psychiatric [id number] Hospital Discharge instructions Patient Education 01/29/2022 10:04:56 [...] very early stages, before it spreads and becomesharder to treat and before you would start [...] exam in which a health care provider usesa gloved finger to check prostate size (digital [...] a flexible tube with a small camera isinserted into the rectum. CT colonography. This test uses X-rays and a contrast dye to check the colon for polyps. If a polypis found, you may need to have a [...] if anything looks unusual. Men with a jmrggj-epgd-lndbdp risk for skin cancer may want to see a configuration management specialist (sandblast carver) for an annual body check. Where to find more information National Cancer [place]: https://www.cancer.gov/about-cancer/screening Centers for Disease Control and Prevention: https://www.cdc.gov/cancer/dcpc/prevention/screening.htm [place] [employer]: https://www.cancer.org/latest-news/1-sxhlcd-vtneybbpa-kbzet-poz-ugx.html Contact a health care provider if: You [...] 03/21/2017 Document Revised: 03/13/2019 Document Reviewed: 03/21/2017 Thumbs Up Patient Education 2020 [employer]. Follow Up Care 01/23/2021 11:07:26 With:Clifton SNOW MD, URL Address: [facility] [address], [place] [phone] When: Unknown [facility] evaluation + Plan note Future Appointments Appointment Date:01/28/2023 10:15:00 AM Scheduled Provider:Clifton SNOW MD Location:[facility] Appointment Type:URO Office Visit [facility] evaluation + Plan note Future Appointments Appointment Date:01/27/2024 09:45:00 AM Scheduled Provider:Clifton SNOW [facility] App[facility]ments Appointment Date:06/28/2025 09:15:00 AM Scheduled Provider:Clifton SNOW MD [facility] Type:URO Office Visit Diagnostic Tests Pending * PSA Total 05/08/25 [facility] evaluation + Plan note Future Appointments Appointment Date:03/16/2025 01:00:00 PM Scheduled Provider:Clifton SNOW MD Location:[facility] Appointment Type:URO Procedure 15 min Appointment Date:03/04/2026 08:45:00 AM Scheduled Provider:Clifton SNOW MD [facility] Type:[facility]O Office Visit [facility] evaluation + Plan note Future Appointments Appointment Date:03/25/2025 09:15:00 AM Scheduled Provider: Location:[facility] Appointment Type:URO Nurse Visit Appointment Date:03/04/2026 08:45:00 AM Scheduled Provider:Clifton SNOW MD Location:[facility] Appointment Type:URO Office Visit [facility] evaluation + Plan note Future Appointments Appointment Date:03/04/2026 08:45:00 AM Scheduled Provider:Clifton SNOW MD Location:[facility] Appointment Type:URO Office Visit [facility] evaluation note* Diagnosis Type 2 diabetes mellitus with diabetic neuropathy, with long-term current use of insulin ([facility]) Flu vaccine need documented in this encounter [facility] HealthcareEvaluation note* Diagnosis Routine general medical examination at health care facility- Primary Routine general medical examination at a health care facility ACP (advance care planning) Other specified counseling Type 2 diabetes mellitus with diabetic chronic kidney disease (CMS/HCC) Chronic kidney disease, stage 3b (HCC) (CMS/HCC) Chronic pulmonary embolism ([facility]/HCC) Chronic pulmonary embolism documented in this encounter [facility] HealthcareEvaluation note* Diagnosis Acute bronchiolitis due to unspecified organism- Primary documented in this encounter [facility] HealthcareEvaluation note* Diagnosis Acute bilateral low back pain without sciatica- Primary Type 2 diabetes mellitus with chronic kidney disease, with long-term current use of insulin, unspecified CKD stage (HCC) Localized edema Edema History of primary malignant neoplasm of kidney documented in this encounter [facility] HealthcareEvaluation note* Diagnosis Acute bilateral low back pain without sciatica- Primary History of primary malignant neoplasm of kidney Localized edema Edema Chronic kidney disease, stage 3b (CMS-HCC) documented in this encounter [facility] HealthcareEvaluation note* Diagnosis Acute deep vein thrombosis (DVT) of iliac vein of right lower extremity (HCC)- Primary Bladder wall thickening Other specified disorder of bladder History of DVT (deep vein thrombosis) Localized edema Edema documented in this encounter [facility] HealthcareEvaluation noteNo assessment information availableOhiohealth [facility] Work Phone: Hospital course Narrative No data available for this section [facility] Discharge instructions No data available for this section [facility] No data available for this section [facility] progress note Author Andres Bryant [facility] Note Date/Time March 05, 2025 1: 29pm [facility] [address] [place] [address] Hospitalist Progress Note Signed Patient: Evelio Irene MR#: [id number] : 1955 Acct:[id number] Age/Sex: 69 / M Adm Date: 5 Loc: 4N Room: 7A7670-8 Type: ADM IN Attending Dr: Troy Rizzo MD Copies to: ~ Date of Service: 03/05/2025 Subjective Subjective Narrative: Patient seen at bedside today with partner present. Reports that he feels much better compared to before the thrombolysis. States that he is now able to walk without any pain to and from the bathroom. Expressed concerns for any limitations he may have postdischarge. Specifically, he is concerned because his bedroom is on the second floor in their home. Patient is advised that any limitations on activity will come from PT/OT and vascular surgery. Exam Physical Exam Vital Signs: Temp Pulse Resp BP Pulse Ox O2 Del Method O2 Flow Rate 98.2 F 64 19 177/53 H 99 Room Air 3 03/05/25 08:03 03/05/25 08:03 03/05/25 08:03 03/05/25 08:03 03/05/25 08:03 03/05/25 08:03 03/03/25 13:45 Narrative: VITALS: Reviewed. GEN: Healthy appearing, well-developed, pleasant PSYCH: Good Judgment. AOx3. Normal memory, mood, and affect. HEENT -Head: Atraumatic; -Eyes: PERRL, EOMI. No discharge or redness; -Nose: Normal to inspection -Mouth and throat: Moist mucous membranes. NECK: Supple, with no masses. LUNGS: Clear to auscultation SKIN: Warm, well perfused. No skin rashes or abnormal lesions. EXT: No clubbing, cyanosis Objective Lab Results 03/04/25 15:40 03/04/25 02:04 Meds Allergies and Active Meds Allergies No Known Allergies Allergy (Verified 03/03/25 11:26) Active Meds: Active Medications Generic Name Dose Route Start Last Admin Trade Name Freq PRN Reason Stop Dose Admin Atorvastatin Calcium 5 mg 03/04/25 09:00 03/05/25 09:04 Atorvastatin 10 Mg Tablet PO 03/04/26 08:59 5 mg DAILY JULIANNA Administration Calcium Carbonate 1,000 mg 03/03/25 14:47 03/03/25 15:20 Calcium Carbonate 500 Mg Tab.Chew PO 03/03/26 14:46 1,000 mg Q4H PRN Administration Dyspepsia Dextrose 0 gm 03/03/25 15:34 Dextrose 50% In Water 25 Gm/50 Ml Syringe IV-PUSH 03/03/26 15:33 PRN PRN Hypoglycemia Finasteride 5 mg 03/04/25 09:00 03/05/25 09:03 Finasteride 5 Mg Tablet PO 03/04/26 08:59 5 mg DAILY JULIANNA Administration Glucose 0 gm 03/03/25 15:34 Dextrose 40% Gel 15 Gm Tube PO 03/03/26 15:33 PRN PRN Hypoglycemia Insulin Aspart 0 units 03/03/25 17:00 03/05/25 07:56 Insulin Aspart 300 Units/3 Ml SUBCUT 03/03/26 16:59 Not Given TID.[facility] Protocol Insulin Aspart 7 units 03/03/25 16:30 03/05/25 08:05 Insulin Aspart 300 Units/3 Ml SUBCUT 03/03/26 16:29 7 units TID.AC JULIANNA Administration Insulin Glargine 28 units 03/03/25 22:00 03/04/25 21:31 Insulin Glargine 300 Units/3 Ml Insuln.Pen SUBCUT 03/03/26 21:59 28 units QHS JULIANNA Administration Labetalol HCl 10 mg 03/03/25 22:48 Labetalol 100 Mg/20 Ml Vial IV-PUSH 03/03/26 22:47 Q4H PRN Hypertension Lisinopril 5 mg 03/04/25 09:00 03/05/25 09:04 Lisinopril 5 Mg Tablet PO 03/04/26 08:59 5 mg DAILY JULIANNA Administration Loperamide HCl 2 mg 03/04/25 14:18 08/28/25 14:41 Loperamide 2 Mg Capsule PO 03/04/26 14:17 2 mg Q2H PRN Administration Diarrhea Metoprolol Succinate 25 mg 03/05/25 09:00 03/05/25 09:03 Metoprolol Succinate 25 Mg Tab.Er.24h PO 03/05/26 08:59 25 mg DAILY JULIANNA Administration Rivaroxaban 15 mg 03/04/25 17:00 03/05/25 09:04 Rivaroxaban 15 Mg Tablet PO 03/04/26 16:59 15 mg BID.WITH.MEALS JULIANNA Administration Sodium Chloride 0 ml 03/03/25 14:19 Sodium Chloride 0.9 % 10 Ml Syringe IV-PUSH 03/03/26 14:18 PRN PRN Flush Terazosin HCl 5 mg 03/04/25 09:00 03/05/25 09:04 Terazosin 5 Mg Capsule PO 03/04/26 08:59 5 mg DAILY JULIANNA Administration Torsemide 20 mg 03/04/25 09:00 03/05/25 09:03 Torsemide 20 Mg Tablet PO 03/04/26 08:59 20 mg DAILY JULIANNA Administration A&P - Hospitalist Assessment/Plan (1) DVT, bilateral lower limbs: Plan: ? With extensive clot burden up to the distal vena cava: Resolved with residual ? EKOS therapy per vascular surgery ? Post thrombolysis with tPA ? Outpatient follow-up with vascular surgery ? Pending PT/OT evaluation, patient okay for discharge from hospitalist point ofview (2) Bilateral lower extremity edema: Plan: ? Secondary to DVT (3) Hypertension: Plan: ? Lisinopril 5 mg daily ? Plans to increase to 10 mg daily upon discharge ? Echocardiogram was unremarkable (4) Diabetes: Plan: ? A1c 6.6% ? We do not have his home dose of insulin here ? Will do weight-based insulin with 28 units glargine, 7 units aspart with #2 sliding scale ACHS (5) Afib: Plan: ? Per cardiology, mainly sinus rhythm with PACs and episode of atrial flutter ? TSH and lipid panel within normal limits ? Cardiology consulted, appreciate recommendations Plan ? DVT prophylaxis addressed with heparin IV ? Regular diet ? Full code Summary Mr. Evelio Irene is a 69-year-old male admitted for treatment of DVT s/p thrombolysis with tPA and EKOS catheter. Follow-up venogram of the right lower extremity shows improved clot burden, with the patient expressing improvement inpain symptoms when he is walking. Patient will have to stay on lifetime anticoagulation, however he previously opted to stop his Xarelto due to it beingexpensive. Event Marketing Assistant recommended Pradaxa as an inexpensive alternative, but vascular surgeon recommends that he stay on Xarelto until he follows up outpatient due to residual clot post thrombolysis. I personally saw this patient on the day of the encounter, reviewed the history,performed the boyce elements of the exam, formulated the plan of care and confirmed the Resident's assessment and plan. Seen in conjunction with resident Dr. Pascual, patient is medically clear for discharge from hospital standpoint, I did already send his metoprolol and lisinopril. His echocardiogram today was unremarkable. Continue with close vascular follow-up, he will be discharged on Xarelto and once he is significant blood clot burden is managed in the outpatient setting, plan to transition from Xarelto to Pradaxa for financial reasons, this was discussed with vascular surgery this morning. - Andres Bryant DO Documented By: Andres Bryant DO 03/05/25 1057 Signed By: <Electronically signed by Andres Bryant DO> 03/05/25 1329 <Electronically signed by MD VERA Pascual> 03/05/25 1326 [facility] Work Phone: Progress note Author Any Garcia [facility] Note Date/Time March 05, 2025 1: 35pm [facility] [address] [place] [address] Cardiology Progress Note Signed Patient: Evelio Irene MR#: [id number] : 1955 Acct:[id number] Age/Sex: 69 / M Adm Date: 5 Loc: 4N Room: 8V2654-9 Type: ADM IN Attending Dr: Troy Rizzo MD Copies to: ~ Date of Service: 03/05/2025 Subjective Interval history: Mr. Irene is a 69 year old male whom I am seeing for the first time. Patient was admitted electively to proceed with a EKOS to address his lower extremity DVT. Reviewing the record indicate the patient had history of hypercoagulable state with factor V deficiency. He was on chronic anticoagulation since 1999 following presentation with pulmonary emboli and DVT. Patient report because ofcost issue he stopped taking his anticoagulation about 6 months ago which resulted in development of significant DVT of his lower extremity who was admitted electively to proceed with a EKOS to minimize his thrombus burden. During the procedure the patient rhythm noted to be irregular and was suspected to have atrial fibrillation upon/review most of rhythm strips appear to suggest mainly sinus with PACs however a brief episode of atrial flutter was seen. Patient had no previous history of coronary artery disease, congestive heart failure or valvular heart disease. Exam Physical Exam Vital Signs: Temp Pulse Resp BP Pulse Ox O2 Del Method O2 Flow Rate 98.2 F 66 15 139/70 98 Room Air 3 03/05/25 11:33 03/05/25 11:03/05/25 11:03/05/25 11:03/05/25 11:03/05/25 11:03/03/25 13:45 Const General: cooperative, comfortable, no acute distress and well developed HEENT Head: atraumatic Mouth: oral mucosae normal Eyes General: appearance normal, both eyes and all related structures Pupils: PERRL Neck Neck: normal visual inspection, supple and no lymphadenopathy noted Neck mass: No Thyroid: thyroid normal Carotids: normal carotid upstroke Chest Chest palpation & inspection: normal inspection of the chest Resp Effort & Inspection: normal respiratory effort Auscultation: clear to auscultation bilaterally Cardio Palpation: normal PMI Rate: regular rate Rhythm: regular rhythm Heart Sounds: S1 normal and S2 normal GI Palpation: soft and no hepatosplenomegaly Percussion: normal to percussion Auscultation: normal bowel sounds Skin General: no rashes or lesions noted and dry skin Neuro General: patient alert, patient awake, patient oriented x3, tone normal and moves all extremities Extrem General: full ROM, capillary refill normal and no clubbing, cyanosis or edema Psych Mental Status: mental status grossly normal Objective Labs 03/04/25 15:40 03/04/25 02:04 Labs: Laboratory Results - last 24 hr 03/04/25 03/04/25 03/04/25 15:40 16:45 20:36 Corrected WBC 8.8 Uncorrected WBC Count 8.8 RBC 3.30 L Hgb 9.9 L Hct 29.6 L MCV 89.5 MCH 30.0 MCHC 33.5 RDW 14.6 Plt Count 273 MPV 7.5 Neut % (Auto) 75.8 Lymph % (Auto) 13.3 [place] % (Auto) 9.5 Eos % (Auto) 1.0 Baso % (Auto) 0.4 Nucleat RBC Rel Count 0.0 Neut # (Auto) 6.7 Lymph # (Auto) 1.2 [place] # (Auto) 0.8 Eos # (Auto) 0.1 Baso # (Auto) 0.0 PT 15.2 H INR 1.3 APTT 31.7 Fibrinogen 166 L POC Glucose 264 245 POC Glucose Comment Glu2: cleaned meter TSH 3rd Generation 1.44 03/05/25 03/05/25 07:56 11:30 Corrected WBC Uncorrected WBC Count RBC Hgb Hct MCV MCH MCHC RDW Plt Count MPV Neut % (Auto) Lymph % (Auto) [place] % (Auto) Eos % (Auto) Baso % (Auto) Nucleat RBC Rel Count Neut # (Auto) Lymph # (Auto) [place] # (Auto) Eos # (Auto) Baso # (Auto) PT INR APTT Fibrinogen POC Glucose 126 137 POC Glucose Comment TSH 3rd Generation A&P - Cardiology (1) DVT, bilateral lower limbs: Code(s): I82.403 - Acute embolism and thrombosis of unspecified deep veins of lower extremity, bilateral Plan Assessment 1. Arrhythmia. His rhythm mainly sinus with PAC but with episode of atrial flutter was noted. 2. No previous history of coronary heart disease, congestive heart failure or significant valvular heart disease 3. 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 Previous history of [place] filter placement Plan 1. Patient made the criteria for lifelong anticoagulation due to history of hypercoagulable state/factor V deficiency which documented before with previous history of PE and DVT and he had clearly recurrent DVT 2. Will add low-dose metoprolol 3. Will check a echocardiogram Documented By: Any Garcia MD 03/05/25 1326 Signed By: <Electronically signed by MD Any Garcia> 03/05/25 1337 [facility] Work Phone: Reason for referral (narrative)No reason for referral information availableOhiohealth [facility] Work Phone: Summary Purpose Family History No Family History Records Found Relationship Condition Age at Onset Recorded Date/T gama brother Leukemia Unknown Malignant neoplasm of prostate Unknown mother Diabetes mellitus Unknown father Malignant neoplasm of stomach Unknown Advance Directives No Advanced Directives Records Found Advance Directive Response Recorded Date/ Time Advance Directives No April 25, 2017 9:14am Chief Complaint and Reason for Visit Chief Complaint Admit Date bilateral dvt, [facility] ER last night March 02, 2025 9:52am Chief Complaint Admit Date bilateral dvt, [facility] ER last night March 02, 2025 9:52am Right Leg DVT March 03, 2025 11 :06am Right Leg DVT March 03, 2025 2: 22pm Reason for Visit Admit Date Bilateral lower extremity edema February 062024 9:52am DVT (deep venous thrombosis) February 9:52am DVT, bilateral lower limbs March 02, 2025 9:52am Afib March 03, 2025 2: 22pm Bilateral lower extremity edema February 062024 2:22pm Diabetes March 03, 2025 2: 22pm DVT, bilateral lower limbs March 03, 2025 2:22pm Hypertension March 03, 2025 2: 22pm Additional Source Comments (unrecognized sect ion and content) No Status Records FoundNo Status Records FoundNo Status Records FoundNo Status Records FoundNo Status Records FoundNo Status Records FoundNo Status Records Found INFORMATION SOURCE (unrecogn ized section and content) DATE CREATED AUTHOR 09/01/2021 [facility] dical Specialist DATE CREATED AUTHOR AUTHOR'S ORGANIZ ATION 06/28/2022 [facility] DATE CREATED AUTHOR AUTHOR'S ORGANIZ ATION 02/27/2025 [facility] DATE CREATED AUTHOR AUTHOR'S ORGANIZ ATION 03/07/2025 [facility] DATE CREATED AUTHOR AUTHOR'S ORGANIZ ATION 03/21/2025 [facility] dical Specialists EPIC DATE CREATED AUTHOR AUTHOR'S ORGANIZ ATION 03/27/2025 [facility] DATE CREATED AUTHOR AUTHOR'S ORGANIZ ATION 03/27/2025 [facility] [employer] First Class Team (unrecognized sect ion and content) [employer] Relationship Specialty Start Date End Date Nino Hammonds MD [address] [place] [address] PCP - ACO Reach 11/29/22 Nino Hammonds MD [address] [place] [address] PCP - General Internal Medicine 12/26/22 [employer] Relationship Specialty Start Date End Date Nino Hammonds MD [address] [place] [address] PCP - ACO Reach 11/29/22 Nino Hammonds MD [address] [place] [address] PCP - General Internal Medicine 12/26/22 [employer] Relationship Specialty Start Date End Date Nino Hammonds MD [address] [place] [address] PCP - ACO Reach 11/29/22 Nino Hammonds MD [address] [place] [address] PCP - General Internal Medicine 12/26/22 [employer] Relationship Specialty Start Date End Date Nino Hammonds MD [address] [place] [address] PCP - ACO Reach 11/29/22 Nino Hammonds MD [address] [place] [address] PCP - General Internal Medicine 12/26/22 [employer] Relationship Specialty Start Date End Date Nino Hammonds MD [address] [place] [address] PCP - ACO Reach 11/29/22 Nino Hammonds MD [address] [place] [address] PCP - General Internal Medicine 12/26/22 [employer] Relationship Specialty Start Date End Date Nino Hammonds MD [address] [place] [address] PCP - ACO Reach 11/29/22 Nino Hammonds MD [address] [place] [address] PCP - General Internal Medicine 12/26/22 [employer] Relationship Specialty Start Date End Date Nino Hammonds MD [address] [place] [address] PCP - ACO Reach 11/29/22 Nino Hammonds MD [address] [place] [address] PCP - General Internal Medicine 12/26/22 [employer] Relationship Specialty Start Date End Date Nino Hammonds MD [address] [place] [address] PCP - ACO Reach 11/29/22 Nino Hammonds MD [address] [place] [address] PCP - General Internal Medicine 12/26/22 Peggy Wade, OUTSOLE BEVELER [address] [place] [address] Cigarette Machine Filler Family Medicine 02/18/25 [employer] Relationship Specialty Start Date End Date Nino Hammonds MD [address] [place] [address] PCP - ACO Reach 11/29/22 Nino Hammonds MD [address] [place] [address] PCP - General Internal Medicine 12/26/22 Peggy Wade, OUTSOLE BEVELER [address] [place] [address] Cigarette Machine Filler Family Medicine 02/18/25 [employer] Relationship Specialty Start Date End Date Nino Hammonds MD [address] [place] [address] PCP - ACO Reach 11/29/22 Nino Hammonds MD [address] [place] [address] PCP - General Internal Medicine 12/26/22 Peggy Wade, OUTSOLE BEVELER [address] [place] [address] Cigarette Machine Filler Family Medicine 02/18/25 Team Status: Active Member Role Status Dates Nino Hammonds II MD Primary Care Provider Active Team Status: Inactive Member Role Status Dates Nino Hammonds II MD Primary Care Provider Active Start: March 02, 2025 End: March 02, 2025 Troy Rizzo MD Attending Provider Active S tart: March 02, 2025 End: March 02, 2025 Team Status: Inactive Member Role Status Dates Nino Hammonds II MD Primary Care Provider Active Start: March 02, 2025 End: March 02, 2025 Amalia Ca , ISAEL-C Attending Provider Active Start: March 02, 2025 End: March 02, 2025 Team Status: Active Member Role Status Dates Nino Hammonds II MD Primary Care Provider Active Start: March 03, 2025 Troy Rizzo MD Attending Provider Active S tart: March 03, 2025 Troy Rizzo MD Other Provider Active Start : March 03, 2025 Team Status: Inactive Member Role Status Dates Nino Hammonds II MD Primary Care Provider Active Start: March 03, 2025 End: March 05, 2025 Troy Rizzo MD Admit Provider Active Start : March 03, 2025 End: March 05, 2025 Troy Rizzo MD Attending Provider Active S tart: March 03, 2025 End: March 05, 2025 Leana Bass RN Other Provider Active Star t: March 03, 2025 End: March 05, 2025 Dee Dee Macias RN Other Provider Active Start : March 03, 2025 End: March 05, 2025 Mirtha Flores RN Other Provider Active Star t: March 03, 2025 End: March 05, 2025 Alla Mcqueen RN Other Provider Active Start: A ugust 2024 End: March 05, 2025 Sarah Mirza RN Other Provider Active Start: [place] 2024 End: March 05, 2025 Bruna Valencia RN Other Provider Active Start: A ugust 2024 End: March 05, 2025 Tanya Gerber MD Other Provider Active Start: March 03, 2025 End: March 05, 2025 Ila Emerson DO Other Provider Active Start : March 03, 2025 End: March 05, 2025 Td Reyes MD Other Provider Active Start : March 03, 2025 End: March 05, 2025 Jac Barrera DO Other Provider Active Start: March 03, 2025 End: March 05, 2025 Dwight Walton MD Other Provider Active Start: March 03, 2025 End: March 05, 2025 Alicia Hill MD Other Provider Active Start : March 03, 2025 End: March 05, 2025 Alok New DO Other Provider Active St art: March 03, 2025 End: March 05, 2025 Devyn Mccarty MD Other Provider Active Start: A ugust 2024 End: March 05, 2025 Roxana Renee APRN Other Provider Active Start: March 03, 2025 End: March 05, 2025 Shannen Clark MD Other Provider Active Start: March 03, 2025 End: March 05, 2025 Odalis Vitale MD Other Provider Active Start: March 03, 2025 End: March 05, 2025 Margie Montgomery MD Other Provider Active Start: March 03, 2025 End: March 05, 2025 Alok Farrell DO Other Provider Active Start: March 03, 2025 End: March 05, 2025 Maria T Guillen MD Other Provider Active Start: [facility] 2024 End: March 05, 2025 Orlando Ray MD Other Provider Active Start: Feb End: March 05, 2025 Sidra Trevino NP-C Other Provider Active St art: March 03, 2025 End: March 05, 2025 Basilio Wiggins APRN Other Provider Active Star t: March 03, 2025 End: March 05, 2025 Osvaldo Lyle MD Other Provider Active Start: March 03, 2025 End: March 05, 2025 Juan Alcocer MD Other Provider Active Start: [facility] 2024 End: March 05, 2025 Mariann Jean MD Other Provider Active Star t: March 03, 2025 End: March 05, 2025 Marizol Johnson DO Other Provider Active Start: [facility] 2024 End: March 05, 2025 Atif Mack DO Other Provider Active Start : March 03, 2025 End: March 05, 2025 Yady Kaur APRN Other Provider Active Start: March 03, 2025 End: March 05, 2025 Andres Bryant DO Other Provider Active Start: March 03, 2025 End: March 05, 2025 Oli Burnett MD Other Provider Active Sta rt: March 03, 2025 End: March 05, 2025 Zaida Oviedo APRN Other Provider Active Start : March 03, 2025 End: March 05, 2025 Rosa Blackwell APRN Other Provider Active St art: March 03, 2025 End: March 05, 2025 Jessica Damian MD Other Provider Active Start: A 2024 End: March 05, 2025 Nino Cosme MD Other Provider Active S tart: March 03, 2025 End: March 05, 2025 Clover Cottrell DO Other Provider Active Start: March 03, 2025 End: March 05, 2025 Toby Rascon MD Other Provider Active Start: March 03, 2025 End: March 05, 2025 Nick Hartman MD Other Provider Active Start: March 03, 2025 End: March 05, 2025 Suzanne Haro APRN Other Provider Active Star t: March 03, 2025 End: March 05, 2025 Norm Dinh MD Other Provider Active Start: 2024 End: March 05, 2025 Aamir Daly MD Other Provider Active Start: March 03, 2025 End: March 05, 2025 Devyn Arboleda MD Other Provider Active Start : March 03, 2025 End: March 05, 2025 Drew Ramirez MD Other Provider Active Start: 2024 End: March 05, 2025 Ning Craven APRN Other Provider Active Sta rt: March 03, 2025 End: March 05, 2025 Laverne Cramer APRN Other Provider Active Start: March 03, 2025 End: March 05, 2025 Michaela Hamilton RN Other Provider Active Start: A 2024 End: March 05, 2025 Batsheva Olivo RN Other Provider Active Star t: March 03, 2025 End: March 05, 2025 Arielle Felix DO Other Provider Active Start : March 03, 2025 End: March 05, 2025 Rafi Zavala MD Other Provider Active Start: March 03, 2025 End: March 05, 2025 Any Garcia MD Other Provider Active St art: March 03, 2025 End: March 05, 2025 Lizzy Oviedo APRN Other Provider Active Start : March 03, 2025 End: March 05, 2025 Carrie Sims MD Other Provider Active Start: Jud ugust 2024 End: March 05, 2025 Modesta Crocker MD Other Provider Active Start: A ugust 2024 End: March 05, 2025 Jailene Olson , [facility]- Other Provider Active Sta rt: March 03, 2025 End: March 05, 2025 [employer] Relationship Specialty Start Date End Date Nino Hammonds MD [address] [place] [address] PCP - ACO Reach 11/29/22 Nino Hammonds MD [address] [address] [place] [address] PCP - General Internal Medicine 12/26/22 Reason for Visit (unrecogniz ed section and content) Reason Comments Diabetes Reason Comments Medicare Annual Wellness Visit Subsequen t Reason Comments Follow-up [facility] 01/01/25 dx: b ack pain,URI discharged home rx for zpack,benzonate Reason Comments Back Pain Results Edema Reason Comments Results Had CT abdomen compl eted d/t history of kidney cancer. Here to discuss results of that. Goals (unrecognized section and content) Goals may be documented in a n alternate section Source Comments (unrecognize d section and content) In the event this informatio n is protected by the Federal Confidentiality of Alcohol and Drug Abuse Patient Records regulations: The Federal rules restrict any use of the information to criminally investigate or prosecute any alcohol or drug abuse patient.[facility] FOR RECORDS PERTAINING TO PATIENTS WHO ARE [...] BE BASED ON THE PRIMARY CLINICAL RECORDS. [facility], [facility]. provides no warranty or guarantee of the accuracy or completeness of information in this document.
== END 2025-03-29 11:47 | disposition home or self-care (01) ==
LOC: US 11:47
PROVIDERS: PCP Internal Medicine
DX: I82.423 Acute embolism and thrombosis of iliac vein, bilateral (principal); I82.90 Acute embolism and thrombosis of unspecified vein
CPT/HCPCS: 93970

== ENCOUNTER 2025-06-18 13:09 | Outpatient (OUT) | payer MEDICARE, SELFPAY ==
--- OUTSIDE RECORDS SUMMARY | 2025-06-18 13:24 | XMS_ITS | CCD ---
Author Organization [facility] Care Team Providers Care Cardiac Nurse Name Role Phone NINO HAMMONDS Primary Care Physician DR NINO HAMMONDS Primary Care Unavailable EDY, DR QUINTERO Admitting Unavailable EDY, DR QUINTERO Attending Unavailable LUCIANA, DR THOMAS Primary Care Unavailable EDY, DR QUINTERO Admitting Unavailable EDY, DR QUINTERO Consulting Unavailable EDY, DR QUINTERO Attending Unavailable BRODERICK, DR TUAN Dalton Consulting Unavailable AIDAN HDEZ Consulting Unavailable Nino Hammonds MD Unavailable [phone] Nino Hammonds MD Primary Care Provider [phone] Peggy Oropeza Unavailable Nino Hammonds II Primary Care Provider [phone] Troy Rizzo MD Attending Provider [phone] Lanny KIRKLAND-C, Amalia Reilly Attending Provider Unavailable Primary Care Provider UnavailTroy Schmidt MD Attending Provider Troy Rizzo MD Other Provider [phone] Troy Rizzo MD Admit Provider Leana Bass RN Other Provider Unavailable Dee Dee Macias RN Other Provider Unavailable Mirtha Flores RN Other Provider Unavailable Alla Mcqueen RN Other Provider Unavailable Sarah Mirza RN Other Provider Unavailable Bruna Valencia RN Other Provider Unavailable Tanya Gerber MD Other Provider Ila Emerson DO Other Provider Td Reyes MD Other Provider Jac Barrera DO Other Provider Anton FOX, Dwight Other Provider Alicia Hill MD Other Provider Alok New DO Other Provider [phone] Devyn Mccarty MD Other Provider Unavailable Roxana Renee APRN Other Provider Amber FOX, Shannen Other Provider Odalis Vitale MD Other Provider Unavailable Margie Montgomery MD Other Provider Alok Farrell DO Other Provider Maria T Guillen MD Other Provider Flor FOX, Orlando Other Provider Belinda REVIEW SPECIALIST-C, Sidra Siddiqui Other Provider Feliciano HART, Basilio Townsend Other Provider Unavailable Osvaldo Lyle MD Other Provider Juan Alcocer MD Other Provider Ted FOX, Mariann Other Provider Unavailable Marizol Johnson DO Other Provider Unavailable Atif Mack DO Other Provider Yady Kaur APRN Other Provider Andres Bryant DO Other Provider Hortencia FOX, Oli Townsend Other Provider Zaida Oviedo APRN Other Provider Rosa Blackwell APRN Other Provider Jessica Damian MD Other Provider Unavailable Nino Cosme MD Other Provider Clover Cottrell DO Other Provider Toby Rascon MD Other Provider Nick Hartman MD Other Provider [phone] Suzanne Haro APRN Other Provider Unavailable Norm Dinh MD Other Provider Aamir Daly MD Other Provider Devyn Arboleda MD Other Provider Drew Ramirez MD Other Provider Ning Craven APRN Other Provider Bela HART, Laverne Other Provider Joy SY, Michaela Other Provider Unavailable Pallavi SY, Batsheva Other Provider Unavailable Arielle Felix DO Other Provider Rafi Zavala MD Other Provider [phone] Any Garcia MD Other Provider Shlomo Oviedo APRN Other Provider Carrie Sims MD Other Provider Modesta Crocker MD Other Provider Unavailable Wesley SENIOR LOAN PROCESSOR-BC, Jailene Cruz Other Provider [phone] Nino Hammonds MD Primary Care Provider Bassem KIRKLAND-C, Amalia Reilly Attending Provider Alok New DO Other Provider Unavailab Shlomo Gutierrez APRN Attending Provider Shlomo Oviedo Attending Unavailable Nino Hammonds Primary Care Unavailable Shlomo Oviedo Admitting Unavailable Nino Hammonds Primary Care Unavailable Troy Rizzo Attending Unavailable Troy Rizzo Admitting Unavailable Leana Bass Consulting Unavailable Dee Dee [...] Unavailable Mariann Jean Consulting Unavailable Marizol Johnson Unavailable Atif Mack Consulting Unavailable Yady Kaur Consulting Unavailable Andres Bryant Consulting Unavailable Oli Burnett Consulting Unavailable Zaida Oviedo Consulting Unavailable Rosa Blackwell Consulting Unavailable Jessica Damian Consulting Unavailable Nino Cosme Consulting Unavailable Clover Cottrell Consulting Unavailable Toby Rascon Consulting Unavailable Nick Hartman Consulting Unava kanwalable Suzanne Haro Consulting Unavailable Norm Dinh Consulting Unavailable Aamir Daly Consulting Unavailable Devyn Arboleda Consulting Unavailable Drew Ramirez Consulting Unavailable Ning Craven Consulting Unavailable Laverne Cramer Consulting Unavaila Michaela Britt Consulting Unavailable Batsheva Olivo Consulting Unavailable Batsheva Olivo Consulting Unavailable Arielle Felix Consulting Unavailable Rafi Zavala Consulting Unavailable Any Garcia Consulting Unavailable Shlomo Oviedo Consulting Unavailable Carrie Sims Consulting Unavailable Modesta Crocker Consulting Unavailable Jailene Olson Consulting Unavailable SHLOMO OVIEDO Referring Unavailable NINO HAMMONDS Primary Care Unavailable OLLIE DUONG Attending Unavailable LEON SNOW Referring Unavailable Leon SNOW Attending Unavailable Leon SNOW Attending Unavailable SNOWLeon R Attending Unavailable SNOWLeon R Attending Unavailable SNOWLeon R Attending Unavailable DENA CABALLERO Attending Unavailable NINO HAMMONDS Primary Care Unavailable SHLOMO OVIEDO Attending Unavailable NINO HAMMONDS Primary Care Unavailable NINO HAMMONDS Attending Unavailable NINO HAMMONDS Attending Unavailable NINO HAMMONDS Attending Unavailable NINO HAMMONDS Attending Unavailable NINO HAMMONDS Referring Unavailable MARGOTH COOPER Attending Unavailable NINO HAMMONDS Attending Unavailable NINO HAMMONDS Attending Unavailable NINO HAMMONDS Attending Unavailable Medications Current Medications MedicationDrug Class(es)DatesSig (Normalized)Sig (Original)aspirin 81 mg oral tablet (20 sources)Platelet Aggregation Inhibitor, Nonsteroidal Anti-inflammatory Drug Start: 83-79-8042hqal 81 mg by mouth once dailyaspirin 81 mg, Oral, Daily, Refills(s) 0 Start Date: 06/26/24 Status: Ordered End: 04-82-2779rmzb 1 tablet by mouth once dailyaspirin 81 MG EC tablet Take 81 mg by mouth Daily 02/24/2025 Discontinuedbenzonatate 100 mg oral capsule (1 source)Non-narcotic AntitussiveStart: 11-74-6144tjaw 1 capsule by mouth three times daily as needed for coughbenzonatate (TESSALON PERLE) 100 mg capsule take 1 capsule by mouth three times a day as needed forcough 01/01/2025 Active finasteride 5 mg oral tablet (20 sources)5-alpha Reductase InhibitorStart: 48-36-4271hivv 1 tablet by mouth once daily in the morningfinasteride (Proscar) 5 MG tablet Indications: Benign prostatic hyperplasia with lower urinary tract symptoms, symptom details unspecified TAKE 1 TABLET BY MOUTH EVERY DAY IN THE MORNING 90 tablet 4 0 12/17/2024 Activefurosemide 20 mg oral tablet (8 sources)Loop DiureticStart: 02-08-2025 End: 87-20-6161tbyh 1 tablet by mouth in the morningfurosemide (Lasix) 20 MG tablet Take 1 tablet by mouth in the morning. 02/08/2025 Active3 ml insulin glargine 100 unt/ml / lixisenatide 0.033 mg/ml pen injector (20 sources)Insulin AnalogStart: 90-50-9095Kdtratd 100/33 100 unit-33 mcg/mL insulin pen Inject 60 Units under the skin. 12/17/2024 ActiveStart: 02-18-2024 insulin glargine-lixisenatide (Soliqua) 100-33 UNT-MCG/ML pen Indications: Uncontrolled type 2 diabetes mellitus with hyperglycemia (CMS/HCC) INJECT 60 UNITS UNDER THE SKIN IN THE MORNING BEFORE MEALS 18 mL 11 02/18/2024 Active Start: 83-01-1912Llxuf: 46-14-1804Zqsldhk 100/33 subcutaneous solution unit(s), SubCutaneous, Refills(s) 0 Start Date: 01/23/21 Status: Ordered Repeat number: 13 ml insulin lispro 100 unt/ml pen injector (6 sources)Insulin AnalogStart: 87-47-6671gtugfwm lispro (HUMALOG KWIKPEN INSULIN) 100 unit/mL Refills(s) 0 01/28/2023 ActiveStart: 46-07-7244YijgKRT KwikPen 100 units/mL injectable solution Refills(s) 0 Start Date: 01/28/23 Status: Ordered Repeat number: 13 ml insulin, regular, human 100 unt/ml pen injector (20 sources)InsulinStart: 77-99-9128Tjnji: 02-89-3114Ekxng: 26-08-9940bwcrgzg regular (NovoLIN R FlexPen) 100 UNIT/ML pen Indications: Type 2 diabetes mellitus with diabetic neuropathy, with long-term current use of insulin (HCC) INJECT 30 UNITS SUBCUTANEOUSLY ONCE IN THE EVENING BEFORE MEAL 30 mL 3 05/15/2024 Activelisinopril 20 mg oral tablet (20 sources)Angiotensin Converting Enzyme InhibitorStart: 05-04-2025 End: 10-10-4451kysw 1 tablet by mouth once dailylisinopril 20 MG tablet Indications: Mixed hyperlipidemia Take 1 tablet (20 mg) by mouth Daily 100 t ablet 3 05/05/2025 ActiveStart: 87-73-8604jcrx 1 tablet by mouth once daily lisinopril 20 mg tablet Take 1 tablet (20 mg) by mouth once daily. 03/05/2025 ActiveStart: 01-07-2019 End: 24-44-4613cifj 1 tablet by mouth once dailyLisinopril 5 mg tablet Discontinued 5 MG PO Daily January 07, 2019 12:00am March 05, 2025 12:44pm lovastatin 20 mg oral tablet (20 sources)HMG-CoA Reductase InhibitorStart: 62-70-4746eptq 1 tablet by mouth once dailytake 1 tablet by mouth once dailylovastatin (Altoprev) 20 MG 24 hr tablet Take 20 mg by mouth Daily Activetake 1 tablet by mouth every twenty-four hourslovastatin (Altoprev) 20 mg 24 hr tablet Take 1 tablet (20 mg) by mouth. Activeosmotic 24 hr metFORMIN hydrochloride 500 mg extended release oral tablet (1 source)Biguanidetake 1 tablet by mouth twice daily at mealtimemetFORMIN 500 mg 24 hr tablet Take 500 mg by mouth twice daily with meals. Qertxg89 hr metoprolol succinate 25 mg extended release oral tablet (9 sources)beta-Adrenergic BlockerStart: 08-63-0745svdh 1 tablet by mouth once dailymetoprolol succinate XL (Toprol-XL) 25 MG 24 hr tablet Take 25 mg by mouth Daily 03/11/2025 ActiveOneTouch Ultra Test (3 sources)Start: 95-74-5409PqpLvyjt Ultra Test TEST 3 TIMES DAILY DIRECTED E11.65 12/11/2024 Activerivaroxaban 20 mg oral tablet (20 sources)Factor Xa InhibitorStart: 55-82-4829ortw 1 tablet by mouth once daily at dinnerStart: 03-05-2025 End: 31-59-6645usxf 1 tablet by mouth twice daily at mealtimeRivaroxaban (Xarelto Dvt-Pe Treat Start) 15 mg (42)- 20 mg (9) tablets,dose pack Discontinued 0PO .COMPLEX 51 March 05, 2025 12:00am March 29, 2025 10:32am take one-15 mg tablet twice daily for 21 days, then one-20 mg tablet once daily; must take with meal/food POStart: 03-02-2025 End: 28-70-1811wgvs 1 tablet by mouth twice dailyRivaroxaban (Xarelto Dvt-Pe Treat Start) 15 mg (42)- 20 mg (9) tablets,dose pack Discontinued 1TAB PO Twice daily March 02, 2025 12:00am March 29, 2025 10:32amStart: 62-72-4401epbs 1 tablet by mouth twice dailyRivaroxaban (Xarelto Dvt-Pe Treat Start) 15 mg (42)- 20 mg (9) tablets,dose pack Active 1 TAB PO Twice daily March 02, 2025 12:00am Complies with drug therapyStart: 79-61-8790Nvptr: 06-16-2135Nbwnfsjkwxs (Xarelto Dvt-Pe Treat Start) 15 mg (42)- 20 mg (9) tablets,dose pack Active TAB PO March 02, 2025 12:00am Complies with drug therapyStart: 20-09-4635Skqucyz Starter Pack 15 mg-20 mg oral tablet See Instructions, Refills(s) 0 Start Date: 03/01/25 Status: Ordered Repeat number: 1 Start: 89-03-1074IIDREXI DVT-PE TREAT 30D START 15 mg (42)- 20 mg (9) DsPk TAKE 15MG BY MOUTH TWICE DAILY FOR 21 DAYS,THEN 20MG DAILY 02/24/2025 ActiveStart: 51-62-0047Inkydjfwllc (Xarelto Starter Pack) 15 & 20 MG tablet therapy pack Indications: Acute deep vein thrombosis (DVT) of iliac vein of right lower extremity (HCC) 15 mg twice a day for 21 days, then 20mg daily. 51 each 02/24/2025 ActiveStart: 63-37-9905ptcp 1 tablet by mouth once dailyXarelto 10 mg oral tablet 10 mg = 1 tab(s), Oral, Daily, Refills(s) 0 Start Date: 01/23/21 Status: OrderedSITagliptin 100 mg oral tablet (1 source)Dipeptidyl Peptidase 4 Inhibitortake 1 tablet by mouth once daily sitaGLIPtin (JANUVIA) 100 mg tablet Take 100 mg by mouth once daily. Active terazosin 5 mg oral capsule (20 sources)alpha-Adrenergic BlockerStart: 02-79-5511qxtm 1 capsule by mouth once dailyterazosin (Hytrin) 5 MG capsule Indications: BPH with urinary obstruction TAKE 1 CAPSULE BY MOUTH EVERY DAY 100 capsule 3 03/01/2025 Active tiZANidine 4 mg oral tablet (7 sources)Central alpha-2 Adrenergic AgonistStart: 02-08-2025 End: 84-25-7602hljx 1 tablet by mouth every six hours for muscle spasms tiZANidine (ZANAFLEX) 4 mg tablet TAKE 1 TABLET (4 MG) BY MOUTH EVERY 6 HOURS IF NEEDED FOR MUSCLE SPASMS FOR UP TO 10 DAYS 02/08/2025 Activetorsemide 20 mg oral tablet (20 sources)Loop DiureticStart: 02-15-2025 End: 82-91-6743wcrc 1 tablet by mouth once dailytorsemide (Demadex) 20 MG tablet Indications: Localized edema TAKE 1 TABLET (20 MG) BY MOUTH DAILY FOR 15 DAYS 90 tablet 1 02/22/2025 Active Completed/Discontinued Medications MedicationDrug Class(es)DatesSig (Normalized)Sig (Original)acetaminophen 325 mg / HYDROcodone bitartrate 5 mg oral tablet (9 sources)Opioid AgonistStart: 03-01-2025 End: 00-71-7599Zuixkurvdtt-Acetaminophen 5-325 mg tablet Discontinued TAB March 03, 2025 12:00am March 03, 2025 3:06pmStart: 02-24-2025 End: 01-66-9252fuyy 1 tablet by mouth every six hours as needed for pain HYDROcodone-acetaminophen (NORCO) 5-325 mg per tablet TAKE 1 TABLET BY MOUTH EVERY 6 HOURS NEEDED FOR SEVERE PAIN FOR UP TO 5 DAYS 02/24/2025 Active cholecalciferol 0.05 mg oral capsule (6 sources)Vitamin DStart: 01-07-2019 End: 11-38-3038vmnu 1 capsule by mouth once dailyCholecalciferol (Vitamin D3) 2,000 unit capsule Discontinued 2000 UNITS PO Daily January 07, 2019 12:00am March 02, 2025 10:10amcinnamon bark 500 mg oral capsule (6 sources)Start: 01-07-2019 End: 90-61-1412dtxe 1 capsule by mouth once dailyCinnamon Bark (Cinnamon) 500 mg Capsule Discontinued 2000 MG PO Daily January 07, 2019 12:00am 2024 10:10amciprofloxacin 500 mg oral tablet (8 sources)Quinolone AntimicrobialStart: 02-24-2025 End: 05-23-5299Qkueowqjlbbfb Hcl 500 mg tablet Discontinued MG March 03, 2025 12:00am March 03, 2025 3:05pmdoxycycline hyclate 100 mg oral capsule (6 sources)Tetracycline-class DrugStart: 03-01-2025 End: 98-40-3921Sisrymzzont Hyclate 100 mg capsule Discontinued MG March 03, 2025 12:00am March 03, 2025 3:05pmglipiZIDE er 5 mg 24 hr extended release oral tablet (6 sources)SulfonylureaStart: 01-07-2019 End: 80-99-5826ntkb 1 tablet by mouth once daily in the eveningGlipizide 5 mg tablet extended release 24hr Discontinued 10 MG PO Daily January 07, 2019 12:00am March 02, 2025 10:10am 5 mg in the evening1.5 ml insulin glargine 300 unt/ml pen injector (3 sources)Insulin AnalogStart: 04-28-2025 End: 26-10-2303gjxjtu 30 [IU] by subcutaneous injection in the morninginsulin glargine (Toujeo Solostar, 1 unit dial,) 300 UNIT/ML injection Indications: Type 2 diabetesmellitus with diabetic neuropathy, with long-term current use of insulin (HCC) Inject 30 Units under the skin in the morning and 30 Units before bedtime. 6 mL 11 04/28/2025 05/10/2025 Discontinued (Therapy completed) Semaglutide (Ozempic) 1 mg/dose (2 mg/1.5 mL) Pen Injector (6 sources)Start: 01-07-2019 End: 50-10-4891uqcjjg 1 mg by subcutaneous injection every weekSemaglutide (Ozempic) 1 mg/dose (2 mg/1.5 mL) Pen Injector Discontinued 1 MG SUBCUT every week 2018 12:00am March 02, 2025 10:10amwarfarin sodium 10 mg oral tablet (7 sources)Vitamin K AntagonistStart: 01-07-2019 End: 24-13-2316Orebuiex 10 mg tablet Discontinued 10 MG PO As Directed January 07, 2019 12:00am March 02, 2025 10:10am Problems Active Problems Problem ClassificationProblemDateDocumented DateEpisodic/ChronicAcute bronchitis (2 sources)Acute bronchiolitis; 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: [Acute bronchiolitis, unspecified] 72-32-8899SmetzivuUilbnpjcxxevpz/social admission (4 sources)Counseling procedure with explicit context; 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: [Dietary counseling and surveillance]EpisodicCancer of kidney and renal pelvis (7 sources)Malignant tumor of rfiszq01-71-3908TpbkvsfHzdgtso dysrhythmias (20 sources)Atrial fibrillation; 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: [Unspecified atrial fibrillation] Onset: 814752-01-1539FlssdtuBejgoqa kidney disease (20 sources)Chronic kidney disease stage 3B ; 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: [Stage 3b chronic kidney disease (HCC)]Onset: 10-31-2018 Resolved: 460996-24-3521FiueqngZdbhmvnfrjz and hemorrhagic disorders (20 sources)Hypercoagulability state; 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: [Other primary thrombophilia]Onset: 704937-50-9495DbxbymjSgufeque mellitus with complications (20 sources)Peripheral neuropathy due to type 2 diabetes mellitus; 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: [Type 2 diabetes mellitus withdiabetic polyneuropathy]Onset: 10-30-2018 Resolved: 915441-40-5214TetegqyLkblslfw mellitus without complication (5 sources)Icasslzbqe45-90-8760OnykfjbhLkjyobpoj of lipid metabolism (20 sources)Hyperlipidemia; 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: [Mixed hyperlipidemia]Onset: 187107-99-2863FothazlCseuttyfd hypertension (16 sources)Hypertensive disorder; 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: [Essential (primary) hypertension]Onset: 703894-30-8167BodhrxyXkppwwvrbye of prostate (20 sources)Benign prostatic hypertrophy with outflow obstruction; 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: [Benign prostatic hyperplasia with lower urinary tract symptoms]Onset: 50-96-8638OuamctfDeiwnkzwoiemw and screening for infectious disease (2 sources)Needs influenza immunization; 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: [Encounter for immunization]36-64-6021AtbtvcayVffvd aftercare (1 source)Long-term current use of insulin; 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: [FPC (current) use of insulin]EpisodicOther aftercare (2 sources)superintendent terminal (current) use of anticoagulants; 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: [FPC (current) use of anticoagulants]Onset: 66-50-5816ArkucirjNqshb aftercare (2 sources)superintendent terminal (current) use of insulin; 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: [superintendent terminal (current) use of insulin (Multi)]Onset: 97-65-9155PxsvqntvEufuu circulatory disease (20 sources)Inferior vena cava filter in situ; 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: [Presence of other vascular implants and grafts]Onset: 728585-98-0379WjapzjkZpllq diseases of bladder and urethra (5 sources)Hypertrophy of bladder; 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: [Other specified disorders of bladder]03-81-0678UpjvxhfInrpt diseases of bladder and urethra (2 sources)Disorder of bladder; 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: [Other specified disorders of bladder]Onset: 02-14-3116WjbgkagGpbji diseases of kidney and ureters (1 source)Other specified disorders of kidney and ureter; 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: [OTHER SPEC DISORDERS KIDNEY URETER]Onset: 51-44-3646MtjdakaGhlsm diseases of kidney and ureters (2 sources)Disorder of kidney and/or ureter; 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: [Other specified disorders of kidney and ureter]Onset: 91-50-0103WaksexgEgtbl diseases of kidney and ureters (1 source)Wrlvwsxbuq54-56-3685IulpvxyMvskg diseases of kidney and ureters (1 source)Urinary tract obstruction; 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: [Other obstructive and reflux uropathy]Onset: 61-22-8055MwopdzmtNjwoc hematologic conditions (1 source)Other abnormality of red blood cells; 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: [Other abnormality of red blood cells]Onset: 95-50-5577GuizyzidCamho nutritional; endocrine; and metabolic disorders (20 sources)Obese class I; 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: [Obesity, Class I, BMI 30-34.9]Onset: 868195-71-9644SbrjtswSaino nutritional; endocrine; and metabolic disorders (3 sources)Body mass index 30+ - obesity; 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: [Body mass index (BMI) 32.0-32.9, adult]Onset: 368418-51-1320UzqmcwiHgkoc nutritional; endocrine; and metabolic disorders (2 sources)Body mass index (BMI) 32.0-32.9, adult; 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: [Body mass index (BMI) 32.0-32.9, adult]Onset: 46-65-5895KlwnzcjTowntymkt; thrombophlebitis and thromboembolism (5 sources)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; 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: [Chronic embolism and thrombosis of unspecified deep veins of proximal lower extremity, bilateral]Onset: 541431-98-9142OrvltmmTxpirvefl; thrombophlebitis and thromboembolism (20 sources)H/O: Deep vein thrombosis; 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: [Personal history of other venous thrombosis and embolism]Onset: 459002-49-8250IdfdydmmOtcndmqmw heart disease (9 sources)Chronic pulmonary embolism; 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: [Chronic pulmonary embolism]79-21-8669OdogzpdYtojanzf codes; unclassified (4 sources)Family history of cancer; 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: [Family history of malignant neoplasm of prostate]Onset: 53-28-8928ZmdkpqqgHgpkrdgq codes; unclassified (13 sources)Localized edema; 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: [Localized edema]Onset: 02-24-2025 63-79-6706ZgyazvnyLyjepugw codes; unclassified (10 sources)Bilateral lower limb edema; 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: [Localized edema] 35-10-2282FjhphkjqAbjaudya codes; unclassified (1 source)Localized edema; 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: [Localized edema]Onset: 03-03-2025 EpisodicSpondylosis; intervertebral disc disorders; other back problems (6 sources)Acute low back pain; 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: [Acute bilateral low back pain without sciatica]36-18-7482OieezwqkNspuxvagxmnq (7 sources)Drug therapy akrelfo38-94-1740Yutrxidetgnc (3 sources)Please call office with any questions or concerns. Unclassified (3 sources)Please call office with any questions or concerns.Unclassified (3 sources)A [facility] screening has identified you as FRAIL [...] Four Ways to Beat the Frailty Risk [email or web address]-[email or web address] lkyg-rd-pttt-the-fra sbdc-[email or web address]rilf (2 sources)Finding of sensation of ejfuiba17-10-9064 Past or Other Problems Problem ClassificationProblemDateDocumented DateEpisodic/ChronicCancer of kidney and renal pelvis (20 sources)History of malignant neoplasm of kidney; 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: [Personal history of other malignant neoplasm of kidney]Onset: 71-86-9067SdstrvjiNofvkgnp mellitus without complication (20 sources)Diabetes mellitus; 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: [Type 2 diabetes mellitus]Onset: 12-12-2018 Resolved: 096706-76-8356AjivfzwAneepkkueojlz symptoms and ill-defined conditions (20 sources)Delay when starting to pass urine; 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: [Poor stream of urine]Onset: 03-04-2023 Resolved: 691458-45-1741MkcquvgqTiqxm aftercare (20 sources)Long-term current use of anticoagulant; 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: [superintendent terminal (current) use of anticoagulants]Onset: 665766-92-4884EjcyejrnIggux aftercare (20 sources)Drug therapy finding; 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: [superintendent terminal (current) use of anticoagulants]Onset: 03-04-2023 Resolved: 045550-08-0523UtzpugyqIlepx and unspecified benign neoplasm (20 sources)Adenomatous polyp of colon ; 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: [Benign neoplasm of colon, unspecified]Onset: 177058-15-9331NlkvnpcbGcjda and unspecified benign neoplasm (20 sources)Benign neoplasm of colon; 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: [Benign neoplasm of colon, unspecified]Onset: 568333-09-2111QzgkiqyfYxwag and unspecified benign neoplasm (20 sources)History of polyp of colon; 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: [History of colon polyps] Onset: 221847-23-3773CyjevmxtRkpgg and unspecified benign neoplasm (3 sources)Benign neoplasm of colon, unspecified; 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: [Benign neoplasm of colon]Onset: 243252-07-8995AizboqmxTsozi diseases of kidney and ureters (20 sources)Renal mass; 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: [Other specified disorders of kidney and ureter]Onset: 09-10-2012 Resolved: 197536-13-9156HklsqvaCxfka diseases of kidney and ureters (20 sources)Disorder of urinary tract; 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: [Other obstructive and reflux uropathy]Onset: 725713-31-2782LkicfdswLjbhx screening for suspected conditions (not mental disorders or infectious disease) (20 sources)Raised prostate specific antigen; 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: [Elevated prostate specific antigen [PSA]]Onset: 78-24-4288ZnisdhwcAgdycirly heart disease (20 sources)Pulmonary embolism; 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: [H/O: pulmonary embolus]Onset: 832043-20-9074UjajjnvsAtwccpmb codes; unclassified (20 sources)Family history of prostate cancer; 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: [Family history of malignant neoplasm of prostate]Onset: 03-04-2023 Resolved: 605401-03-3717JxytrnmoIpmynvbanael (3 sources)Onset: Results Test NameValueInterpretationReference PljckSavvgnbjJjH5b (Bld) [Mass fraction]on 89-57-5817Gqgmorcqxcaibs and review of laboratory resultsAbLifeBrite Community Hospital of StokesLaboratory - Hematology and Cell countson 67-84-7229QqY6u (Bld) [Mass fraction]6.4 %[facility] HealthcareUrology Office/Clinic Noteon 04-20-2025 Urology Office/Clinic NoteUrology Office/Clinic Note Chief Complaint Urocuff HPI Staff Patient presents with LUTS symptoms common to men suffering from benign prostate hyperplasia, including: _ Patient has been on medication for LUTS symptoms for the past _ months/years with diminishing success. Patient now complains of side effects from the medication and seeks to resolve his symptoms. The UroCuff Test is a Natural Fill Voiding Pressure Study performed on the [id number] Complete Urodynamics instrument. The [facility] Clinical Practice Guidelines recommend that a Voiding Pressure Study should be considered when diagnostic uncertainty exists. The patient???s bladder was filled naturally and the test began when the patient reported a strong desire to void. The patient was fitted with a small, pneumatic penile cuff and sEMG electrodes are applied to the perineum and abdomen. The patientwas instructed to void naturally onto a precise scale which measures urine flow rate and total voided volume. The urodynamics instrument applied a series of linear inflations and deflations to the pneumatic penile cuff and recorded the effects on urine flow rate. The penile cuff pressure required to interrupt flow represents the bladder pressure at the time of interruption. This inflation/deflation cycle was repeated until voiding was complete. The diagnostic study provides a report indicating: Voided volume: 593 ml Pcufflnt pressure: 200.0 cmH2O Maximum flow rate: 10.5 ml Desire to void: 8 sEMG (pelvic floor) base reading: _ uV sEMG (pelvic floor) max reading: _ uV sEMG (abdominal) base reading: _ uV sEMG (abdominal) max reading: _ uV Post void residual: 112ml A review of the EMG, pressure and flow data indicates: 1) The patient _indicate for Detrusor External Sphincter Dyssynergia. 2) The patient _indicate for Abdominal Straining during voiding. 3) The patient has _ bladder contractility. 4) The patient has _ urine flow rate. 5) The pressure/flow data indicates _ Assessment/Plan 1. BPH with urinary obstruction (N40.1: Benign prostatic hyperplasia with lower urinary tract symptoms) Other obstructive and reflux uropathy (N13.8: Other obstructive and reflux uropathy) Follow-up No qualifying data available Problem List/Past Medical History Ongoing Anticoagulated Bladder wall thickening BPH with urinary obstruction Elevated PSA Family history of prostate cancer Feeling of incomplete bladder emptying H/O renal cell cancer Hyperlipidemia Pulmonary embolism Renal mass Type 2 diabetes mellitus Historical BPH - benign prostatic hyperplasia Chronic pulmonary embolism. Diabetes mellitus Renal cancer Procedure/Surgical History Cystoscopy (03/16/2025), Transrectal biopsy of prostate using ultrasound (US) guidance (06/22/2014), Transrectal biopsy of prostate using ultrasound (US) guidance (03/16/2014), Nephrectomy (10/16/2012). Medications acetaminophen-hydrocodone 325 mg-5 mg oral tablet, 1 tab(s) finasteride 5 mg Tab, 5 mg= 1 tab(s), Oral, Daily, 3 refills HumaLOG KwikPen 100 units/mL injectable solution lisinopril 5 mg Tab, 5 mg= 1 tab(s), Oral, Daily Soliqua 100/33 subcutaneous solution, SubCutaneous terazosin 5 mg Cap, 5 mg= 1 cap(s), Oral, Once a day (at bedtime) torsemide 20 mg Tab, 20 mg= 1 tab(s) Xarelto Starter Pack 15 mg-20 mg oral tablet, See Instructions Allergies No Known Allergies Social History Alcohol - Low Risk, 07/23/2019 Substance Abuse - Denies Substance Abuse, 07/24/2019 Never., 06/26/2024 Tobacco - Denies Tobacco Use, 07/24/2019 Former smoker, quit more than 30 days ago Tobacco Use:. Never Smokeless Tobacco Use:. Cigarettes, Household tobacco concerns: No. Yes, 03/16/2025 Family History Cancer: Father. Cancer of prostate: Brother. Diabetes mellitus type 1: Mother. Immunizations Vaccine Date Status Comments influenza virus vaccine, inactivated 06/25/2024 Recorded influenza virus vaccine, inactivated 05/04/2022 Recorded SARS-CoV-2 (COVID-19) mRNA BNT-162b2 vax 04/25/2021 Recorded SARS-CoV-2 (COVID-19) mRNA BNT-162b2 vax 09/30/2020 Recorded SARS-CoV-2 (COVID-19) mRNA BNT-162b2 vax 09/10/2020 Recorded 2024-06-26: TPV65 SARS-CoV-2 (COVID-19) mRNA-1273 vaccine 09/2020 Recorded influenza virus vaccine, inactivated 07/14/2020 RecordedWayne HealthCare Main CampusComment on above:Result Comment: Electronically Signed By: Leon SNOW MD\.br\Date and Time Signed: 04/20/25 16:16 EDT\.br\Electronically Co-Signed By: Poonam Torrez MA\.br\Date and Time Co-Signed: 03/25/2513:13 EDTBETA 2 GLYCOPROTEIN, IGGon 99-56-8306Ikvw 2 glycoprotein 1 IgG IA Qn<9Normal <20[facility] SystemComment on above:Order Comment: Specimen Type: BLOOD SPECIMENOrdering Facility: [facility] Address:[address] [place], [place] [address]Result Comment: <20 SGU Negative 20-80 SGU Low Positive >80 SGU High Positive These results were obtained with the [employer] QUANTA Lite B2 GPI IgG CARIN. B2 GPI IgG values obtainedwith different manufacturers' assay methods may not be used interchangeably. The magnitude of the reported IgG levels cannot be correlated to an endpoint titer.Performed By: #### 5076-5, CARDIM, BETA2G, CARDIG, BETA2M ####[facility]CLIA [id number] [address] OF [facility] HOSPITALBETA 2 GLYCOPROTEIN, IGMon [id number] 2 glycoprotein 1 IgM IA Qn<9Normal<20[facility] Comment on above:Order Comment: Specimen Type: BLOOD SPECIMENOrdering Facility: [facility] Address:[address] [place], [place] [address]Result Comment: <20 SMU Negative 20-80 SMU Low Positive >80 SMU High positive These results were obtained with the [employer] QUANTA Lite B2 GPI IgM CARIN. B2 GPI IgM values obtainedwith different manufacturers' assay methods may not be used interchangeably. The magnitude of the reported IgM levels cannot be correlated to an endpoint titer.Performed By: #### 5076-5, CARDIM, BETA2G, CARDIG, BETA2M ####[facility] LABCLIA [id number] [address] WARD STREETCARDIOLIPIN IGG ABSon 04-14-2025 Cardiolipin IgG IA Qn (S)<9.0Normal<15.0[facility] on above:Order Comment: Specimen Type: BLOOD SPECIMENOrdering Facility: [facility] Address:[address] [place], [place] [address]Result Comment: <15 GPL Negative 15-20 GPL Indeterminate >20 GPL Positive The following results were obtained with the [employer] QUANTA Lite JENNIFER IgG III CARIN. Cardiolipin IgG values obtained with the different manufacturers' assay methods may not be used interchangeably. The magnitude of the reported IgG levels cannot be correlated to an endpoint titer.Performed By: #### 5076-5, CARDIM, BETA2G, CARDIG, BETA2M ####[facility]CLIA [id number] OF [facility] CARDIOLIPIN IGM ABSon 64-95-0592Ppzuityzzgg IgM IA Qn (S)<9.0Normal<12.5 [facility] on above:Order Comment: Specimen Type: BLOOD SPECIMENOrdering Facility: [facility] Address:[address] [place] [address] Comment: <12.5 MPL Negative 12.5-20 MPL Indeterminate >20 MPL Positive The following results were obtained with the [employer] QUANTA Lite JENNIFER IgM III CARIN. Cardiolipin IgM values obtained with the different manufacturers' assay methods may not be used interchangeably. The magnitude of the reported IgM levels cannot be correlated to an endpoint titer. ???Performed By: #### 5076-5, CARDIM, BETA2G, CARDIG, BETA2M ####[facility] LABCLIA [id number] [address]CL[address] AVENUEDESK [id number] [place] [address] W Auto Differential panel (Bld)on 04-14-2025 Basophils (Bld) [#/Vol]0.03 10*3/uLNormal<0.11CMercy Health on above:Order Comment: Specimen Type: BLOOD SPECIMENOrdering Facility: [facility] Address:[address] [place] [address] Performed By: #### 47564-2 ####[facility] LABCLIA [id number] [place], [place] [address]Alnahcpjt/100 WBC (Bld)0.4 % [facility] on above:Order Comment: Specimen Type: BLOOD SPECIMENOrdering Facility: [facility] Address:[address] [place], [place] [address]Performed By: #### 57073-2 ####[facility] LABCLIA [id number] [place] [address] Differential cell count method Nom (Bld)AutoNormalCUniversity Hospitals [facility]aug[facility] Comment on above:Order Comment: Specimen Type: BLOOD SPECIMENOrdering Facility: [facility] Address:[address] [place] [address] Performed By: #### 78031-9 ####[facility] LABCLIA [id number] [place], [place] [address]Bvxaxzrqubs (Bld) [#/Vol]0.15 10*3/uLNormal<0.46[facility] on above:Order Comment: Specimen Type: BLOOD SPECIMENOrdering Facility: [facility] Address:[address] [place], [place] [address]Performed By: #### 30840-3 ####[facility] LABCLIA [id number] [place], [place] [address]Jgvujygzhvh/100 WBC (Bld)2.1 %NormalC[facility] Clinic [facility] on above:Order Comment: Specimen Type: BLOOD SPECIMENOrdering Facility: [facility] Address:[address] [place], [place] [address]Performed By: #### 77826-9 ####[facility] LABIA [id number] [place], [place] [address]Vwxbwrpvkmt distribution width (RBC) [Ratio]14.6 %Hmvded82.5-15.0[facility] on above: Order Comment: Specimen Type: BLOOD SPECIMENOrdering Facility: [facility] Address:[address] [place], [place] [address]Performed By: #### 48513- 8 ####[facility] LABIA [id number] [place], [place] [address]Yaxhddwuom (Bld) [Volume fraction]36.4 %Low39.0-51.0 [facility] on above:Order Comment: Specimen Type: BLOOD SPECIMENOrdering Facility: [facility] Address:[address] [place], [place] [address]Performed By: #### 81205-9 ####[facility] LABIA [id number] [place], [place] [address]Mfasojnick (Bld) [Mass/Vol]11.8 g/dLLow13.0-17.0[facility] on above:Order Comment: Specimen Type: BLOOD SPECIMENOrdering Facility: [facility] Address:[address] [place], [place] [address]Performed By: #### 50247- 8 ####[facility] LABIA [id number] [place], [place] [address]Uvdasphj granulocytes (Bld) [#/Vol]10*3/uLNormal<0.10 [facility] on above:Order Comment: Specimen Type: BLOOD SPECIMENOrdering Facility: [facility] Address:[address] [place], [place] [address]Performed By: #### 50465-4 ####[facility] LABIA [id number] [place], [place] [address]Siyrjglj granulocytes/100 WBC (Bld)0.3 %NormalC[facility] Clinic [facility] on above: Order Comment: Specimen Type: BLOOD SPECIMENOrdering Facility: [facility] Address:[address] [place], [place] [address]Performed By: #### 62867- 8 ####[facility] LABCLIA [id number] [place], [place] [address]Exnibdjaqco (Bld) [#/Vol]1.84 10*3/uLNormal1.00-4.00 [facility] on above:Order Comment: Specimen Type: BLOOD SPECIMENOrdering Facility: [facility] Address:[address] [place], [place] [address]Performed By: #### 81570-9 ####[facility] LABCLIA [id number] [place], [place] [address]Izjkzdtszfi/100 WBC (Bld)25.5 %NormalC[facility] Clinic [facility] on above:Order Comment: Specimen Type: BLOOD SPECIMENOrdering Facility: [facility] Address:[address] [place], [place] [address]Performed By: #### 75615-2 ####[facility] LABCLIA [id number] [place], [place] [address]TQB (RBC) [Entitic mass]29.7 ltWlzxdt03.0-34.0[facility] on above:Order Comment: Specimen Type: BLOOD SPECIMENOrdering Facility: [facility] Address:[address] [place], [place] [address]Performed By: #### 37032-5 ####[facility] LABCLIA [id number] [place], [place] [address]YMCI (RBC) [Mass/Vol]32.4 g/bTLqgoet13.5-36.0[facility] on above: Order Comment: Specimen Type: BLOOD SPECIMENOrdering Facility: [facility] Address:[address] [place], [place] [address]Performed By: #### 82397- 8 ####[facility] LABCLIA [id number] [place], [place] [address]DZY (RBC) [Entitic vol]91.7 yEKpuibq31.0-100.0[facility] on above:Order Comment: Specimen Type: BLOOD SPECIMENOrdering Facility: [facility] Address:[address] [place], [place] [address]Performed By: #### 91662-3 ####[facility] LABIA [id number] [place], [place] [address]Csfufoqfb (Bld) [#/Vol]0.80 10*3/uLNormal<0.87[facility] on above:Order Comment: Specimen Type: BLOOD SPECIMENOrdering Facility: [facility] Address:[address] [place], [place] [address]Performed By: #### 93000- 8 ####[facility] LABIA [id number] [place], [place] [address]Rxrethfix/100 WBC (Bld)11.1 %NormalC[facility] Clinic [facility] on above:Order Comment: Specimen Type: BLOOD SPECIMENOrdering Facility: [facility] Address:[address] [place], [place] [address]Performed By: #### 30882-6 ####[facility] LABIA [id number] [place], [place] [address]Pwqqmdlvvld (Bld) [#/Vol]4.38 10*3/uLNormal1.45-7.50[facility] on above:Order Comment: Specimen Type: BLOOD SPECIMENOrdering Facility: [facility] Address:[address] [place], [place] [address]Performed By: #### 12341-2 ####[facility] LABIA [id number] [place], [place] [address]Siioqymriml/100 WBC (Bld)60.6 %NormalC[facility] Clinic [facility] on above:Order Comment: Specimen Type: BLOOD SPECIMENOrdering Facility: [facility] Address:[address] [place], [place] [address]Performed By: #### 85141-2 ####[facility] LABCLIA [id number] [place], [place] [address]Bkgldwmhw RBC (Bld) [#/Vol] 10*3/uLNormal<0.01[facility] on above:Order Comment: Specimen Type: BLOOD SPECIMENOrdering Facility: [facility] Address:[address] [place], [place] [address]Performed By: #### 02457-3 ####[facility] LABCLIA [id number] [place], [place] [address]Hvwyllawp RBC/100 WBC (Bld) [Ratio]0.0 /100 WBCNormal [facility] on above:Order Comment: Specimen Type: BLOOD SPECIMENOrdering Facility: [facility] Address:[address] [place], [place] [address]Performed By: #### 65555-8 ####[facility] LABCLIA [id number] [place], [place] [address]Ykobvvkd mean volume (Bld) [Entitic vol]9.5 fLNormal9.0-12.7CMercy Health on above:Order Comment: Specimen Type: BLOOD SPECIMENOrdering Facility: [facility] Address:[address] [place] [address] Performed By: #### 93173-7 ####[facility] LABCLIA [id number] [place], [place] [address]Lfhporvpw (Bld) [#/Vol]215 10*3/dMFfjuzl119-276LsqokaqhcC[facility] Clinic [facility] on above:Order Comment: Specimen Type: BLOOD SPECIMENOrdering Facility: [facility] Address:[address] [place] [address]Ttpubirzd By: #### 83591-5 ####[facility] LABCLIA [id number] [place], [place] [address]OUM (Bld) [#/Vol]3.97 10*6/uLLow4.20-6.00[facility] on above:Order Comment: Specimen Type: BLOOD SPECIMENOrdering Facility: [facility] Address:[address] [place], [place] [address]Performed By: #### 27437-5 ####[facility] LABCLIA [id number] [place], [place] [address]KGW (Bld) [#/Vol]7.22 10*3/uL Normal3.70-11.00[facility] on above:Order Comment: Specimen Type: BLOOD SPECIMENOrdering Facility: [facility] Address:[address] [place], [place] [address]Performed By: #### 65853-8 ####[facility] LABCLIA [id number] [place], [place] [address]GPC SerPl-mCncon 20-49-6866UFE [Mass/Vol]mg/LNormal<0.9 [facility] on above:Order Comment: Specimen Type: BLOOD SPECIMEN Ordering Facility: [facility] Address: [address] [place], [place] [address]Performed By: #### 1988-5, 2276-4, 05503-4 #### [facility] CLIA [id number] [address] [place] [address] [place] OF AMERICACardiac stress study Procedureon 04-14-2025 Summary: 1. Graded exercise stress test with nondiagnostic ST-T changes. 2. No provoked chest pain or significant arrhythmia. 3. Appropriate hemodynamic response to exercise. 4. Limited exercise tolerance. 5. PACs noted throughout the test. 6. Patient was able to exercise for 2 minutes 30 seconds achieving workload of 4.6 METS and 93% of maximum predicted heart rate.[employer] [facility] Normal [address] [place] [address], [address], [place] [address] Exercise Stress Test Patient Name: EVELIO IRENE Ordering Provider: [id number] SHLOMO OVIEDO Study Date: 04/14/2025 Reading Physician: [id number] Any Garcia MD MRN/PID: [id number] Supervising Physician: [id number] Rafi Zavala MD, [facility] Fellow: Date of /Age: 1004/11/1955 years Fellow: Gender: M Nurse: Teja Velasquez RN Admission Status: Concrete Pointer: NA Height: 185.42 cm Technologist: Weight: 110.68 kg Additional Staff: BSA: 2.34 m2 BMI: 32.19 kg/m2 Patient Location: Study Type: STRESS TEST ONLY Diagnosis/ICD: Atypical atrial flutter-I48.4 Indication: Atrial Flutter CPT Codes: Stress Test Interpretation-56529; Stress Test Supervision-12845 Falls Risk: Low: Patient has low risk for sustaining a fall; environmental safety interventions in place. Study Details: Correct procedure and correct patient verified verbally. Patient History: Allergies: None. Patient Performance: The patient exercised to stage I on a Lester protocol for 2 minutes and 30 seconds, achieving 4.60 METS. The peak heart rate achieved was 139 bpm, which was 93 % of the age predicted target heart rate of 149 bpm. The resting blood pressure was 152/82 mmHg with a heart rate of 64bpm. The standing blood pressure was 152/78 mmHg with a heart rate of 66 bpm. The patient's functional capacity was below average. The patient developed dyspnea during the stress exam. The symptoms resolved with rest. The blood pressure response was normal. The test was terminated due to: dyspnea. Sinus tachycardia with nondiagnostic ST-T changes. Double Product (HR x BP): 220. Baseline ECG: Resting ECG showed normal sinus rhythm with right bundle branch block and left anterior fascicular block. Normal sinus rhythm with right bundle branch block, left anterior fascicular hemiblock and occasional PACs with nonspecific ST-T changes. Stress Stage Data: + +---+------+-------+ HR Sys BP Ritter BP + +---+------+-------+ Baseline Resting 64 152 82 + +---+------+-------+ Baseline Standing 66 152 78 + +---+------+-------+ Stage I 137 158 78 + +---+------+-------+ Recovery ECG: The heart rate recovery was normal. + +---+------+-------+ HR Sys BP Ritter BP + +---+------+-------+ Recovery I 137 160 76 + +---+------+-------+ Recovery II 130 158 74 + +---+------+-------+ Recovery III 99 152 76 + +---+------+-------+ Recovery IV 96 148 74 + +---+------+-------+ Summary: 1. Graded exercise stress test with nondiagnostic ST-T changes. 2. No provoked chest pain or significant arrhythmia. 3. Appropriate hemodynamic response to exercise. 4. Limited exercise tolerance. 5. PACs noted throughout the test. 6. Patient was able to exercise for 2 minutes 30 seconds achieving workload of 4.6 METS and 93% of maximum predicted heart rate. [id number] Any Garcia MD Electronically signed on 04/14/2025 at 5:07:23 PM Final Any Leyva MD - 04/14/[address], [address], [place] [address] Exercise Stress Test Patient Name: EVELIO IRENE Ordering Provider: [id number] SHLOMO OVIEDO Study Date: 04/14/2025 Reading Physician: [id number] Any Garcia MD MRN/PID: [id number] Supervising Physician: [id number] Rafi Zavala MD, [facility] Fellow: Date of /Age: 1004/11/1955 / 70 years Fellow: Gender: M Nurse: Teja Velasquez RN Admission Status: Concrete Pointer: NA Height: 185.42 cm Technologist: Weight: 110.68 kg Additional Staff: BSA: 2.34 m2 BMI: 32.19 kg/m2 Patient Location: Study Type: STRESS TEST ONLY Diagnosis/ICD: Atypical atrial flutter-I48.4 Indication: Atrial Flutter CPT Codes: Stress Test Interpretation-45862; Stress Test Supervision-21441 Falls Risk: Low: Patient has low risk for sustaining a fall; environmental safety interventions in place. Study Details: Correct procedure and correct patient verified verbally. Patient History: Allergies: None. Patient Performance: The patient exercised to stage I on a Lester protocol for 2 minutes and 30 seconds, achieving 4.60 METS. The peak heart rate achieved was 139 bpm, which was 93 % of the age predicted target heart rate of 149 bpm. The resting blood pressure was 152/82 mmHg with a heart rate of 64bpm. The standing blood pressure was 152/78 mmHg with a heart rate of 66 bpm. The patient's functional capacity was below average. The patient developed dyspnea during the stress exam. The symptoms resolved with rest. The blood pressure response was normal. The test was terminated due to: dyspnea. Sinus tachycardia with nondiagnostic ST-T changes. Double Product (HR x BP): 220. Baseline ECG: Resting ECG showed normal sinus rhythm with right bundle branch block and left anterior fascicular block. Normal sinus rhythm with right bundle branch block, left anterior fascicular hemiblock and occasional PACs with nonspecific ST-T changes. Stress Stage Data: + +---+------+-------+ HR Sys BP Ritter BP + +---+------+-------+ Baseline Resting 64 152 82 + +---+------+-------+ Baseline Standing 66 152 78 + +---+------+-------+ Stage I 137 158 78 + +---+------+-------+ Recovery ECG: The heart rate recovery was normal. + +---+------+-------+ HR Sys BP Ritter BP + +---+------+-------+ Recovery I 137 160 76 + +---+------+-------+ Recovery II 130 158 74 + +---+------+-------+ Recovery III 99 152 76 + +---+------+-------+ Recovery IV 96 148 74 + +---+------+-------+ Summary: 1. Graded exercise stress test with nondiagnostic ST-T changes. 2. No provoked chest pain or significant arrhythmia. 3. Appropriate hemodynamic response to exercise. 4. Limited exercise tolerance. 5. PACs noted throughout the test. 6. Patient was able to exercise for 2 minutes 30 seconds achieving workload of 4.6 METS and 93% of maximum predicted heart rate. [id number] Any Garcia MD Electronically signed on 04/14/2025 at 5:07:23 PM Final IMPRESSION: Summary: 1. Graded exercise stress test with nondiagnostic ST-T changes. 2. No provoked chest pain or significant arrhythmia. 3. Appropriate hemodynamic response to exercise. 4. Limited exercise tolerance. 5. PACs noted throughout the test. 6. Patient was able to exercise for 2 minutes 30 seconds achieving workload of 4.6 METS and 93% of maximum predicted heart rate. [facility] Work Phone: Cardiac stress study ProcedureOrdered By: Any Garcia on [id number] Hospitals Geauga Medical Center Work Phone: Cardiolipin IgA Ser IA-aCncon 90-44-3142Sksekgcxtdd IgA IA Qn (S)<9.0Normal<12.0[facility] on above:Order Comment: Specimen Type: BLOOD SPECIMENOrdering Facility: [facility] Address:[address] [place], [place] [address]Result Comment: <12 APL Negative 12-20 APL Indeterminate >20 APL Positive The following results were obtained with the [employer] QUANTA Lite JENNIFER IgA III CARIN. Cardiolipin IgA values obtained with the different manufacturers' assay methods may not be used interchangeably. The magnitude of the reported IgA levels cannot be correlated to an endpoint titer.Performed By: #### 5076-5, EDMUND SMITH, ALEX VILLAGRAN2Kristian ####[facility] LABCLIA 3 [id number] [place] [address] [place] Comprehensive metabolic 2000 panelon 49-54-5494Pioouzj [Mass/Vol]4.3 g/dLNormal 3.9-4.9CMercy Health on above:Order Comment: Specimen Type: BLOOD SPECIMEN Ordering Facility: [facility] Address: [address] [place], [place] [address]Performed By: #### 81373-4 #### [facility] CLIA [id number] [place], [place] [address]PAY [Catalytic activity/Vol]72 U/OElaldx26-072MvgxftnjeCleveland Clinic [facility] on above:Order Comment: Specimen Type: BLOOD SPECIMEN Ordering Facility: [facility] Address: [address] [place], [place] [address]Performed By: #### 99541-4 #### [facility] CLIA [id number] [address] [place], [place] [address]AIV [Catalytic activity/Vol]12 U/IVvbanr94-12UxyrwhfolCleveland Clinic [facility] on above:Order Comment: Specimen Type: BLOOD SPECIMEN Ordering Facility: [facility] Address: [address] [place], [place] [address]Performed By: #### 51637-3 #### [facility] CLIA [id number] [address] [place], [place] [address]Zkpfx gap [Moles/Vol]14 mmol/LNormal8-15[facility] on above:Order Comment: Specimen Type: BLOOD SPECIMEN Ordering Facility: [facility] Address: [address] [place], [place] [address]Performed By: #### 02586-9 #### [facility] CLIA [id number] [address] [place], [place] [address]OBO [Catalytic activity/Vol]13 U/ERwz78-14JkvcxqdliCleveland Clinic [facility] on above:Order Comment: Specimen Type: BLOOD SPECIMEN Ordering Facility: [facility] Address: [address] [place], [place] [address]Performed By: #### 91198-6 #### [facility] CLIA [id number] [address] [place], [place] [address]Slvujnytm [Mass/Vol]0.3 mg/dLNormal0.2-1.3CMercy Health on above:Order Comment: Specimen Type: BLOOD SPECIMEN Ordering Facility: [facility] Address: [address] [place], [place] [address]Performed By: #### 02059-7 #### [facility] CLIA [id number] [address] [place], [place] [address]Onsdlpg [Mass/Vol]9.4 mg/dLNormal8.5-10.2CMercy Health on above:Order Comment: Specimen Type: BLOOD SPECIMEN Ordering Facility: [facility] Address: [address] [place], [place] [address]Performed By: #### 74518-0 #### [facility] CLIA [id number] [address] [place], [place] [address]Ppeszetk [Moles/Vol]108 mmol/HOyqh31-956AqjjpgzueCleveland Clinic [facility] on above:Order Comment: Specimen Type: BLOOD SPECIMEN Ordering Facility: [facility] Address: [address] [place], [place] [address]Performed By: #### 50345-2 #### [facility] CLIA [id number] [address] [place], [place] [address]LL6 [Moles/Vol]21 mmol/ZMys64-39KtlrqhcsnMount [facility] Comment on above:Order Comment: Specimen Type: BLOOD SPECIMEN Ordering Facility: [facility] Address: [address] [place], [place] [address]Performed By: #### 93454-2 #### [facility] CLIA [id number] [address] [place], [place] [address]Wubclrrymm [Mass/Vol]1.63 mg/dLHigh0.73-1.22[facility] on above:Order Comment: Specimen Type: BLOOD SPECIMEN Ordering Facility: [facility] Address: [address] [place], [place] [address]Performed By: #### 04638-9 #### [facility] CLIA [id number] [address] [place] [address]aWSLjh SerPlBld CKD-EPI 212442 mL/min/1.73m???Low>=60[facility] on above:Order Comment: Specimen Type: BLOOD SPECIMEN Ordering Facility: [facility] Address: [address] [place], [place] [address]Result Comment: Estimated Glomerular Filtration Rate (eGFR) is calculated using the 2020 CKD-EPI cre atinine equation. This equation utilizes serum creatinine, sex, and age as parameters. The creatinine assay has traceable calibration to isotope dilution- mass spectrometry. Refer to KDIGO guidelines for clinical interpretation. In patients with unstable renal function, e.g. those with acute kidney injury, the eGFR may not accurately reflect actual GFR.Performed By: #### 66634-0 #### [facility] IA [id number] [address] [place] [address]Wnmiduv [Mass/Vol]130 mg/oTTorb32-18XcnzjcdzaMount Carmel Health System Comment on above:Order Comment: Specimen Type: BLOOD SPECIMEN Ordering Facility: [facility] Address: [address] [place] [address] Comment: The [place] Diabetes Association (ADA) provides guidance for cutoff values for fasting glucose and random glucose. The ADA defines fasting as no caloric intake for at least 8 hours. Fasting plasma glucose results between 100 to 125 mg/dL indicate increased risk for diabetes (prediabetes). Fasting plasma glucose results greater than or equal to 126 mg/dL meet the criteria for diagnosis of diabetes. In the absence of unequivocal hyperglycemia, results should be confirmed by repeat testing. In a patient with classic symptoms of hyperglycemia or hyperglycemic crisis, random plasma glucose results greater than or equal to 200 mg/dL meet the criteria for diagnosis of diabetes. Reference: Standards of Medical Care in Diabetes 2016, [place] [employer] Association. Diabetes Care. 2016.39(Suppl 1).Performed By: #### 84074-6 #### [facility] CLIA [id number] [address] [place] [address]Gljxylbby [Moles/Vol]3.8 mmol/LNormal3.7-5.1CMercy Health on above:Order Comment: Specimen Type: BLOOD SPECIMEN Ordering Facility: [facility] Address: [address] [place], [place] [address]Performed By: #### 39791-3 #### [facility] CLIA [id number] [address] [place], [place] [address]Tistvcr [Mass/Vol]7.1 g/dLNormal6.3-8.0[facility] on above:Order Comment: Specimen Type: BLOOD SPECIMEN Ordering Facility: [facility] Address: [address] [place], [place] [address]Performed By: #### 32493-8 #### [facility] CLIA [id number] [address] [place] [address]Nveykv [Moles/Vol]143 mmol/YSvqxpc409-214SpoglxtcpCleveland Clinic [facility] on above:Order Comment: Specimen Type: BLOOD SPECIMEN Ordering Facility: [facility] Address: [address] [place], [place] [address]Performed By: #### 24347-4 #### [facility] CLIA [id number] [address] [place] [address]Lfue nitrogen [Mass/Vol]23 mg/dLNormal9-24[facility] on above:Order Comment: Specimen Type: BLOOD SPECIMEN Ordering Facility: [facility] Address: [address] [place], [place] [address]Performed By: #### 87868-9 #### [facility] CLIA [id number] [address] [place] [address]Wrxmxgfp SerPl-ncon 54-45-3124Agicspdp [Mass/Vol]154.0 ng/mL Jrutkf99.3-565.7CMercy Health on above:Order Comment: Specimen Type: BLOOD SPECIMENOrdering Facility: [facility] Address:[address] [place], [place] [address]Performed By: #### 1988-5, 2276-4, 84855-8 ####[facility] [id number] [place] [address] [place] OF AMERICAFolate SerPl-mCncon 85-92-1153Ujaijk [Mass/Vol]10.1 ng/mLNormal>4.7CMercy Health on above:Order Comment: Specimen Type: BLOOD SPECIMEN Ordering Facility: [facility] Address: [address] [place], [place] [address]Performed By: #### 2132-9, 2284-8 #### [facility] CLIA [id number] [address] [place] [address] [place] AMERICAHYPERCOAG PANELon 04-14-2025 Activated protein C resistance Coag (PPP) [Time ratio]1.56 RatioLow>=2.90 [facility] on above:Order Comment: Specimen Type: BLOOD SPECIMEN Ordering Facility: [facility] Address: [address] [place], [place] [address]Result Comment: Consistent with Factor V Leiden, HeterozygousPerformed By: #### JOHN [id number] #### [facility] CLIA [id number] [address] [place] [address] [place] AMERICAANTI XA HZ + DOAC<0.10Normal <0.10[facility] on above:Order Comment: Specimen Type: BLOOD SPECIMEN Ordering Facility: [facility] Address: [address] [place], [place] [address]Performed By: #### JOHN [id number] #### [facility] CLIA [id number] [address] [place] [address] [place] AMERICAAntithrombin actual/normal Chromogenic method (PPP) [Rel catalytic activity/Vol]94 %Vywtau69-526StjhxwxtkCleveland Clinic [facility] on above:Order Comment: Specimen Type: BLOOD SPECIMEN Ordering Facility: [facility] Address: [address] [place], [place] [address]Performed By: #### JOHN [id number] #### [facility] CLIA [id number] [address] [place] [address] [place] AMERICAaPTT Coag (Bld) [Time]38.1 s High24.0-35.1CMercy Health on above:Order Comment: Specimen Type: BLOOD SPECIMEN Ordering Facility: [facility] Address: [address] [place], [place] [address]Performed By: #### JOHN [id number] #### [facility] CLIA [id number] [address] [place] [address] [place] AMERICAAPTT SCRN HZ + DOAC30.5 Wmlmcw17.0-35.1CMercy Health on above:Order Comment: Specimen Type: BLOOD SPECIMEN Ordering Facility: [facility] Address: [address] [place], [place] [address]Performed By: #### JOHN [id number] #### [facility] IA [id number] [address] [place] [address] [place] AMERICAaPTT W excess hexagonal phase phospholipid Coag (PPP) [Time]46.5 jxpxlekZlhpcm61.0-51.8CMercy Health on above:Order Comment: Specimen Type: BLOOD SPECIMEN Ordering Facility: [facility] Address: [address] [place], [place] [address]Result Comment: The specimen was treated with ANTI-XA neutralizing reagents to remove heparin, low molecular weight heparin, and DOAC activity from the plasma.Performed By: #### JOHN [id number] #### [facility] CLIA [id number] [address] [place] [address] [place] AMERICACoagulation factor VIII activity actual/normal Coag (PPP) [Relative time]156 %Nnyzib29-616NxhihbojrCleveland Clinic [facility] on above:Order Comment: Specimen Type: BLOOD SPECIMEN Ordering Facility: [facility] Address: [address] [place], [place] [address]Result Comment: The specimen was treated with ANTI-XA neutralizing reagents to remove heparin, low molecular weight heparin, and DOAC activity from the plasma.Performed By: #### HCOAG, [id number] #### [facility] CLIA [id number] [address] [place] [address] [place] AMERICACoagulation factor X activated act Coag Qn (PPP)1.95High<0.10[facility] on above:Order Comment: Specimen Type: BLOOD SPECIMEN Ordering Facility: [facility] Address: [address] [place], [place] [address]Result Comment: This test was developed, and its performance characteristics determined by the [facility] Department of Pathology and Laboratory Medicine. It has not been cleared or approved bythe FDA. The [facility] Department of Pathology and Laboratory Medicine is regulated under CLIA as qualified to perform high- complexity testing. This test is used for clinical purposes. It should not be regarded as investigational or for research.Performed By: #### JOHN [id number] #### [facility] CLIA [id number] [address] [place] [address] [place] AMERICADelta dRVVT Coag (PPP) [Time diff]3.9 delta secondsNormal<7.1CMercy Health on above: Order Comment: Specimen Type: BLOOD SPECIMEN Ordering Facility: [facility] Address: [address] [place], [place] [address]Result Comment: The specimen was treated with ANTI-XA neutralizing reagents to remove heparin, low molecular weight heparin, and DOAC activity from the plasma.Performed By: #### JOHN [id number] #### [facility] CLIA [id number] [address] [place] [address] [place] AMERICAdRVVT W excess hexagonal phase phospholipid actual/normal Coag (PPP) [Relative time]42.5 secondsNormal 34.2-47.9CMercy Health on above:Order Comment: Specimen Type: BLOOD SPECIMEN Ordering Facility: [facility] Address: [address] [place], [place] [address]Result Comment: The specimen was treated with ANTI-XA neutralizing reagents to remove heparin, low molecular weight heparin, and DOAC activity from the plasma.Performed By: #### JOHN [id number] #### [facility] CLIA [id number] [address] [place] [address] [place] [facility] MERCY HOSPITALFIBRINOGEN UHIXFGDZ114 mg/dL Rtaksm317-485PouvhjhxnC[facility] Clinic [facility] on above:Order Comment: Specimen Type: BLOOD SPECIMEN Ordering Facility: [facility] Address: [address] [place], [place] [address]Performed By: #### JOHN [id number] #### [facility] CLIA [id number] [address] [place] [address] [place] AMERICAProtein C actual/normal Coag (PPP) [Relative time]81 %Ajdzlv71-329HcvlftywbC[facility] Clinic [facility] on above: Order Comment: Specimen Type: BLOOD SPECIMEN Ordering Facility: [facility] Address: [address] [place], [place] [address]Performed By: #### JOHN [id number] #### [facility] CLIA [id number] [address] [place] [address] [place] AMERICAProtein S actual/normal Coag (PPP) [Relative time]79 %Rcyzjc83-073UuovxzbmnC[facility] Clinic [facility] on above: Order Comment: Specimen Type: BLOOD SPECIMEN Ordering Facility: [facility] Address: [address] [place], [place] [address]Result Comment: The specimen was treated with ANTI-XA neutralizing reagents to remove heparin, low molecular weight heparin, and DOAC activity from the plasma.Performed By: #### JOHN, [id number] #### [facility] CLIA [id number] [address] [place] [address] [place] AMERICAPT Coag (Bld) [Time]13.7 s Vpyzkn88.6-14.4CMercy Health on above:Order Comment: Specimen Type: BLOOD SPECIMEN Ordering Facility: [facility] Address: [address] [place], [place] [address]Result Comment: The specimen was treated with ANTI-XA neutralizing reagents to remove heparin, low molecular weight heparin, and DOAC activity from the plasma.Performed By: #### HCOAG, [id number] #### [facility] CLIA [id number] [address] [place] [address] [place] [facility] MERCY HOSPITALThrombin time Coag (PPP) [Time]17.0 secondsNormal<18.6CMercy Health on above:Order Comment: Specimen Type: BLOOD SPECIMEN Ordering Facility: [facility] Address: [address] [place], [place] [address]Performed By: #### HCOAG, [id number] #### [facility] CLIA [id number] [address] [place] [address] STATES OF [facility] MERCY HOSPITALTHROMBIN TIME HZ + DOAC18.7 High<18.6ClevelSumma Health Wad[facility] - [facility] on above:Order Comment: Specimen Type: BLOOD SPECIMEN Ordering Facility: [facility] Address: [address] [place], [place] [address]Performed By: #### HCOAG, [id number] #### [facility] CLIA [id number] [address] [place] [address] STATES [facility] HOSPITALHYPERCOAG PANEL INTERPon 46-94-3726MUKSUDEROKVCKB (HYPERCOAG)NormalC[facility] Clinic [facility] on above:Order Comment: Specimen Type: BLOOD SPECIMEN Ordering Facility: [facility] Address: [address] [place], [place] [address]Result Comment: Abnormal - see comment below. SIGNIFICANT FINDINGS: - Factor V Leiden: Heterozygous - Drug effect: Warfarin - Drug effect: Xa Inhibitor, neutralized A laboratory evaluation for congenital and acquired risk factors for thrombophilia was performed. Both the PT and APTT were elevated. The elevated PT is consistent with a history of warfarin therapy. The anti-Xa screen was positive with a normal thrombin time and the results corrected following heparinase neutralization and DOAC removal. These results indicate an anti-Xa drug effect and are consistent with the medication record indicating rivaroxaban therapy. After pre-treatment to remove heparin and/or DOAC, the PT and APTT were normal and no residual anti-Xa activity was detected. LUPUS ANTICOAGULANT STUDIES: The normal hexagonal phase phospholipid neutralization and APTT assays make a lupus anticoagulant unlikely. The criteria for the diagnosis of a Lupus Anticoagulant, as detailed by the Subcommittee on Lupus Anticoagulants and Anti-Phospholipid Antibodies of the Scientific and Standardization Committee of the International Society on Thrombosis and Haemostasis (ISTH), are the following: (1) A prolonged phos pholipid-dependent clotting test (screening test); (2) Evidence for an inhibitor (1:1 mix of patient:normal plasma); (3) Evidence that the inhibitor is phospholipid dependent and (4) Exclusion of specific inhibitors (ie, fVIII inhibitors, direct thrombin inhibitors, or heparin). Thromb. Haemost. 74:1185 (1994). ANTIPHOSPHOLIPID ANTIBODY STUDIES: The IgG, IgM and IgA Cardiolipin antibody titers were all negative. The IgG and IgM Beta-2 Glycoprotein I antibody titers were negative. Antiphospholipid syndrome (APS) is present if at least one clinical criteria and one laboratory criteria are met. The clinical criteria for APS include the presence of vascular thrombosis or morbidity. The laboratory criteria for APS include positive testing for one of the following on two or more occasions, at least 12 weeks apart: (1) lupus anticoagulant; (2) anticardiolipin IgG or IgM in medium or high titer (>20 GPL or >20 MPL); (3) anti-beta 2 glycoprotein I IgG or IgM antibody. J. Thromb Haemost 4:295 (2006). PROTEIN STUDIES: The levels of protein C, protein S, and antithrombin are normal. The levels of fibrinogen, factor VIII, and C-reactive protein are normal. GENOTYPING STUDIES: The activated protein C resistance ratio (APC-R) is decreased and the ratio is consistent with heterozygosity for Factor V Leiden. Heterozygosity for Factor V Leiden results in resistance to activated protein C and may impart an increased risk for thromboembolic disease. The patient is negative for the c.*97G>A variant (legacy name 94847W>A) in the 3' untranslated region of the Factor II (F2) prothrombin gene. This result is not associated with an increased risk of thromboembolic disease. Please refer to the interpretation provided with the PT Gene Mutation result for further diagnostic and prognostic information. Please correlate these laboratory results with clinical findings and medication history.Performed By: #### [facility], [id number] #### [facility] CLIA [id number] [address] [place], [place] [address] [place] OF AMERICAPathologist nameReviewed by Adrienne Norris DO, MPHNormalCMercy Health on above:Order Comment: Specimen Type: BLOOD SPECIMEN Ordering Facility: [facility] Address: [address] [place], [place] [address]Performed By: #### HCOAG, [id number] #### [facility] CLIA [id number] [address] [place] [address] [place] AMERICAIron and Iron binding capacity panelon 28-03-9702Naxq [Mass/Vol]42 ug/jHXeggte35-229UyeghilatCleveland Clinic [facility] on above:Order Comment: Specimen Type: BLOOD SPECIMEN Ordering Facility: [facility] Address: [address] [place], [place] [address]Performed By: #### 1987-11, 2275-10, 19311-8 #### [facility] CLIA [id number] [address] [place] [address] [place] AMERICAIron binding capacity [Mass/Vol]283 ug/uBEhpshf018-579SkzsmnvjsC[facility] Clinic [facility] on above:Order Comment: Specimen Type: BLOOD SPECIMEN Ordering Facility: [facility] Address: [address] [place], [place] [address]Performed By: #### 1987-11, 2275-10, 83504-2 #### [facility] CLIA [id number] [address] [place], [place] [address] [place] AMERICAIron/TIBC [Molar ratio]14.8 %Low15.0-57.0[facility] on above:Order Comment: Specimen Type: BLOOD SPECIMEN Ordering Facility: [facility] Address: [address] [place], [place] [address]Performed By: #### 1987-11, 2275-10, 07508-9 #### [facility] CLIA [id number] [address] [place] [address] [place] AMERICAPROTHROMBIN GENE PCRon 88-10-2752NXIXBVDAZOL GENE MUTATIONNormSelect Medical [facility] on above:Order Comment: Specimen Type: BLOOD SPECIMEN Ordering Facility: [facility] Address: [address] [place], [place] [address]Result Comment: Prothrombin Gene Mutation Laboratory Accession Number: [id number] Result: NORMAL Interpretation: The DNA sample is negative for the c.*97G>A variant (legacy name 74519H>A) in the 3' untranslated region of the Factor II (F2) gene. This result is not associated with an increased risk of thromboembolic disease. Thromboembolic disease is a multifactorial disorder and other causes are not excluded by this result. Methodology: Isolated Genomic DNA from the patient's blood specimen is evaluated for the c*97G>A ([id number]) variant of the F2 gene [RefSeq NM_000506.53;GRCh38/hg38] by multiplex polymerase chain reaction (PCR) followed by melting curve analysis. Limitations: This assay is designed to detect the c.*97G>A (35240P>A) variant in the F2 gene. Uncommon variants or single nucleotide polymorphisms may affect binding of probes and may rarely result in false negative, false positive or indeterminate results. This assay does not detect other disease-associated rare variants in F2 or other causes of thromboembolic disease. Disclaimer: This test was developed and its performance characteristics determined by [facility]'s Pathology and Laboratory Medicine Department. It has not been cleared or approved by the FDA. [facility]'s Pathology and Laboratory Medicine Department is regulated under CLIA as certified to perform high-complexity testing. This test is used for clinical purposes. It should not be regarded as investigational or for research. Test performed at [facility], [address] [place] [address]. CLIA Number: [id number] References: 1) Inheritied Thrombophilias in . ACOG Practice Bulletin. No. 197. [place] [employer]. Obsete Gynecol 2018;132:e18-34. 2) Carlos SR, Devyn FR, Lakesha PH, and Candice PATINO. A common genetic variation in the 3'-untranslated region of the prothrombin gene is associated with elevated plasma prothrombin levels and an increase in venous thrombosis. Blood 88:3698-703, 1995. 3) [address], Esperanza V, Hugo C, Murali Alcala. Prothrombin 56532Y>T: 16 new cases, association with the 10520A>G polymorphism, and literature review. J Thromb Haemost. 2009;9:1585-7. Interpretation performed by Dayanara Hurtado, PhD, FACPerformed By: #### PTGEN #### [facility] CLIA [id number] [address] [place], [place] [address]STRESS TEST ONLYon 64-35-5215GGKYQD TEST ONLYNort[address], [place] [address] Exercise Stress Test Patient Name: EVELIO IRENE Ordering Provider: [id number] SHLOMO OVIEDO Study Date: 04/14/2025 Reading Physician: [id number] Any Garcia MD MRN/PID: [id number] Supervising Physician: [id number] Rafi Zavala MD, [facility] Fellow: Date of /Age: 1004/11/1955 / 70 years Fellow: Gender: M Nurse: Teja Velasquez RN Admission Status: Concrete Pointer: ZEKE Height: 185.42 cm Technologist: Weight: 110.68 kg Additional Staff: BSA: 2.34 m2 BMI: 32.19 kg/m2 Patient Location: Study Type: STRESS TEST ONLY Diagnosis/ICD: Atypical atrial flutter-I48.4 Indication: Atrial Flutter CPT Codes: Stress Test Interpretation-24642; Stress Test Supervision-12520 Falls Risk: Low: Patient has low risk for sustaining a fall; environmental safety interventions in place. Study Details: Correct procedure and correct patient verified verbally. Patient History: Allergies: None. Patient Performance: The patient exercised to stage I on a Lester protocol for 2 minutes and 30 seconds, achieving 4.60 METS. The peak heart rate achieved was 139 bpm, which was 93 % of the age predicted target heart rate of 149 bpm. The resting blood pressure was 152/82 mmHg with a heart rate of 64bpm. The standing blood pressure was 152/78 mmHg with a heart rate of 66 bpm. The patient's functional capacity was below average. The patient developed dyspnea during the stress exam. The symptoms resolved with rest. The blood pressure response was normal. The test was terminated due to: dyspnea. Sinus tachycardia with nondiagnostic ST-T changes. Double Product (HR x BP): 220. Baseline ECG: Resting ECG showed normal sinus rhythm with right bundle branch block and left anterior fascicular block. Normal sinus rhythm with right bundle branch block, left anterior fascicular hemiblock and occasional PACs with nonspecific ST-T changes. Stress Stage Data: + +---+------+-------+ HR Sys BP Ritter BP + +---+------+-------+ Baseline Resting 64 152 82 + +---+------+-------+ Baseline Standing 66 152 78 + +---+------+-------+ Stage I 137 158 78 + +---+------+-------+ Recovery ECG: The heart rate recovery was normal. + +---+------+-------+ HR Sys BP Ritter BP + +---+------+-------+ Recovery I 137 160 76 + +---+------+-------+ Recovery II 130 158 74 + +---+------+-------+ Recovery III 99 152 76 + +---+------+-------+ Recovery IV 96 148 74 + +---+------+-------+ Summary: 1. Graded exercise stress test with nondiagnostic ST-T changes. 2. No provoked chest pain or significant arrhythmia. 3. Appropriate hemodynamic response to exercise. 4. Limited exercise tolerance. 5. PACs noted throughout the test. 6. Patient was able to exercise for 2 minutes 30 seconds achieving workload of 4.6 METS and 93% of maximum predicted heart rate. [id number] Any Garcia MD Electronically signed on 04/14/2025 at 5:07:23 PM Final Summary: 1. Graded exercise stress test with nondiagnostic ST-T changes. 2. No provoked chest pain or significant arrhythmia. 3. Appropriate hemodynamic response to exercise. 4. Limited exercise tolerance. 5. PACs noted throughout the test. 6. Patient was able to exercise for 2 minutes 30 seconds achieving workload of 4.6 METS and 93% of maximum predicted heart rate.[facility] DaytonVit B12 [facility] CenterlF[facility] [id number] (Vitamin B12) [Mass/Vol]320 pg/vIHfmhhs375-9315QkdakqmjlMercy Health on above: Order Comment: Specimen Type: BLOOD SPECIMEN Ordering Facility: [facility] Address: [address] [place], [place] [address]Performed By: #### 2132-9, 2284-8 #### [facility] CLIA [id number] [address] [place] [address] [place] AMERICACNOVSPon [id number] Visit (SP) Office ([place]) EVELIO IRENE ([id number]) 1955 M Date Time Provider Department 04/13/25 4:00 PM OLLIE DUONG During your visit today, we recorded the following information about you: Temperature Pulse Respiration Blood pressure 98.2 degrees 71/minute 16/minute 190/65 Weight 111.5 kg Ollie Duong MD 04/13/2025 4:44 PM Signed PATIENT NAME: Evelio Irene CLINIC NO.: [id number] ATTENDING PHYSICIAN: Ollie Duong MD DATE OF SERVICE: 04/13/[address] Leon Snow [address] [facility] [address] thank you for referring Evelio Irene for an opinion regarding DVT. CHIEF COMPLAINT: DVT HPI: Evelio Irene is a 70 year old year old male with PMH of RCC s/p right nephrectomy in 2012, DVT/PE, DM, HTN, DLD Hospitalized in Feb 2025 with extensive DVT s/p thrombolysis in [facility]. - H/o first episode DVT/PE many yrs ago. - Second episode of DVT in Feb 2025. Unprovoked - Switched to baby aspirin alone for 6 months prior to second episode DVT in Feb 2025. - H/o IVC filter placed. - On xarelto 20mg once a day. - Mother- stroke. - Father- stomach cancer - Brother- prostate cancer - Quit smoking many yrs ago. - Occasional alcohol. 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 - 1 children . - Last colonoscopy few years ago. Current Outpatient Medications Medication Sig furosemide (LASIX) 20 mg tablet Take 1 tablet by mouth once daily. insulin lispro (HUMALOG KWIKPEN INSULIN) 100 unit/mL Refills(s) 0 lisinopril (ZESTRIL) 5 mg tablet Take 5 mg by mouth once daily. SOLIQUA 100/33 100 unit-33 mcg/mL inpn Inject subcutaneously. tiZANidine (ZANAFLEX) 4 mg tablet TAKE 1 TABLET (4 MG) BY MOUTH EVERY 6 HOURS IF NEEDED FOR MUSCLE SPASMS FOR UP TO 10 DAYS torsemide (DEMADEX) 20 mg tablet XARELTO DVT-PE TREAT 30D START 15 mg (42)- 20 mg (9) DsPk TAKE 15MG BY MOUTH TWICE DAILY FOR 21 DAYS,THEN 20MG DAILY NOVOLIN R FLEXPEN 100 unit/mL (3 mL) pen INJECT 30 UNITS SUBCUTANEOUSLY ONCE IN THE EVENING BEFORE MEAL HYDROcodone-acetaminophen (NORCO) 5-325 mg per tablet TAKE 1 TABLET BY MOUTH EVERY 6 HOURS NEEDED FOR SEVERE PAIN FOR UP TO 5 DAYS doxycycline hyclate (VIBRAMYCIN) 100 mg capsule ciprofloxacin HCl (CIPRO) 500 mg tablet benzonatate (TESSALON PERLE) 100 mg capsule take 1 capsule by mouth three times a day as needed for cough sitaGLIPtin (JANUVIA) 100 mg tablet Take 100 mg by mouth once daily. terazosin 5 mg capsule Take 5 mg by mouth daily at bedtime. warfarin 10 mg tablet Take 10 mg by mouth daily as directed. Lovastatin 20 mg 24 hr tablet Take 20 mg by mouth daily at bedtime. metFORMIN 500 mg 24 hr tablet Take 500 mg by mouth twice daily with meals. finasteride 5 mg tablet Take 5 mg by mouth once daily. No current facility-administered medications for this visit. ALLERGIES No Known Allergies PAST MEDICAL HISTORY Diagnosis Date Anticoagulated BPH with urinary obstruction Diabetes mellitus (HCC) Elevated prostate specific antigen (PSA) H/O renal cell cancer Hyperlipidemia Protein in urine Pulmonary embolism (HCC) Renal mass PAST SURGICAL HISTORY Procedure Laterality Date CYSTOSCOPY HERNIA REPAIR HX LAP NEPHRECTOMY FAMILY HISTORY Problem Relation Age of Onset Cancer Father stomach Diabetes Mother SOCIAL HISTORY[1] REVIEW OF SYSTEMS GENERAL: No weight loss, malaise or fevers. No night sweats. HEENT: Negative for headaches, No changes in hearing or vision, no nose bleeds or other nasal problems. RESPIRATORY: Negative for cough, wheezing and shortness of breath CARDIOVASCULAR: Negative for chest pain, leg swelling and palpitations GI: Negative for abdominal discomfort, blood in stools or black stools and change in bowel habits : Negative for dysuria, frequency and incontinence MUSCULOSKELETAL: Negative for joint pain or swelling, back pain, and muscle pain. SKIN: Negative for lesions, rash, and itching. HEMATOLOGY/LYMPHOLOGY Negative for prolonged bleeding, bruising easily, and swollen nodes. NEURO: Negative for numbness or tingling of hands/feet. No weakness. PHYSICAL EXAMINATION: There were no vitals taken for this visit. There were no vitals taken for this visit. Last 3 Encounter Wt Readings: Date: Wt: 09/24/2012 95.3 kg (210 lb) 09/10/2012 95.9 kg (211 lb 6.4 oz) General appearance:ECOG PERFORMANCE STATUS: 0- Fully active, able to carry on all pre-disease performance w/o restriction. Patient in NAD. Skin: Skin color, texture, turgor normal. No rashes or lesions. Eyes: Anicteric sclera. Pupils are equally round and reactive to light. Extraocular movements are intact. Breast: No palpable breast masses. No nipple change or discharge. Lymph Nodes: No cervical, supraclavicular, axillary or inguinal adenopathy. Oropharynx: Lips, mucosa, and tongue normal. Back: No pain to percussion. (more content not included)...NormalUniversity Hospitals [facility] Center heart calcium score woon 13-98-5199VU heart calcium score wo [facility] [place] [address] [place] [address] CT Scan Report Signed Patient: Evelio Irene MR#: [id number] : 1955 Acct:[id number] Age/Sex: 69 / M ADM Date: 04/09/25 Loc: CT Room: Type: [facility] Attending Dr: Shlomo Oviedo APRN Copies to: Shlomo Oviedo APRN Ordering Provider: Shlomo Oviedo APRN Date of Service: 04/09/25 CT/CT heart calcium score wo: I48.4 CT heart calcium score w/o contrast REASON FOR EXAM: Hypertension diabetes A. fib. TECHNIQUE: Prospective gated imaging of the heart were obtained for calcium evaluation of the coronary arteries. Agatston score was calculated. The CT exam was performed using one or more the following dose reduction techniques: Automated exposure control, adjustment of the MA and/or Kv according to patient size, or use of the iterative reconstruction technique. COMPARISON:None FINDINGS: LEFT MAIN: 199.76 LEFT ANTERIOR DESCENDIN.69 CIRCUMFLEX: 231.11 RIGHT CORONARY ARTERY: 725.29 TOTAL AGATSTON CALCIUM SCORE: 1683.86 This calcium score places the patient at the 85th percentile. EXTRACARDIAC STRUCTURES: No evidence of mediastinal or hilar lymphadenopathy. No pericardial effusion. Visualized lungs demonstrate no acute process. No lung nodule is seen. Limited images o f the upper abdomen demonstrate no acute findings. CT/CT heart calcium score wo IMPRESSION: No significant extracardiac CT findings. CALCIUM SCORE INTERPRETATION (>300) Risk is moderately to severely increased. Treatment recommendation - high intensity statin plus ASA 81mg. Source: September 2017 - Coronary artery calcium data and reporting system. An expert consensus document of the Society of Cardiovascular Computed Tomography) Impression dictated by: Aamir Chu Jr., DArnulfoOArnulfo 04/09/2025 4:20 PM Dictation Location: [facility]--23 Transcribed By: [facility] 04/09/25 1620 Dictated By: Aamir Chu Jr, DO 04/09/25 1609 Signed By: 04/09/25 1620[facility] Physician GroupUrology Office/Clinic Noteon [id number] Office/Clinic NoteUrology Office/Clinic Note Chief Complaint Patient is here [...] given direct family history. 7. 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 S/p IVC filter placement many yrs ago. Hx of DVT around time of filter placement [1]. Follow-up With When Contact Information EDY FOX, Leon Reilly, URL [facility] [address], [place] [address]- Additional Instructions: sched urocuff Patient Education Cystoscopy I, Keli Lane, personally scribed for Dr. Snow on 03/16/2025 13:21:27. Electronically signed byjanes Dickey Documentation recorded by the scribe, Keli [...] biopsy of prostate usin (more content not included)...[facility] CampusComment on above:Result Comment: Electronically Signed By: Keli Lane\.br\Date and Time Signed: 03/16/25 13:30 EDT\.br\Electronically Co-Signed By: Leon SNOW MD\.br\Date and Time Co-Signed: 03/17/25 15:19 EDTCapillary blood glucose measurement by glucometer (mass/volume)Ordered By: Troy Rizzo on 07-60-7518Kiryovh [Mass/Vol]137 mg/dLNoMemorial Health SystemComment on above: Random Glucose Reference Range is dependent on time and content of last meal. Glucose of more than 200 mg/dL in a nonstressed, ambulatory subject supports the diagnosis of Diabetes Mellitus.Result Comment: Random Glucose Reference Range is dependent on time and content of last meal. Glucose of more than 200 mg/dL in a nonstressed, ambulatory subject supports the diagnosis of Diabetes Mellitus. PERFORMED BY: [place] [address] PATHOLOGIST PUBLIC INFORMATION OFFICER LIZZIE CASTRO M.D.Performed By: #### T4F, LIPID, TSH3, BMP #### [place] [id number] USAGlucose Poct Glucometerson 08-10-6677Vomqinh [Mass/Vol]126 mg/dLMartin Memorial Health Systems Physician GroupComment on above:Result Comment: Random Glucose Reference Range is dependent on time and content of last meal. Glucose of more than 200 mg/dL in a nonstressed, ambulatory subject supports the diagnosis of Diabetes Mellitus. PERFORMED BY: [place] [address] PATHOLOGIST PUBLIC INFORMATION OFFICER LIZZIE CASTRO M.D.Performed By: #### T4F, LIPID, TSH3, BMP #### [place] [id number] USAA1C with Estimated Average Gluon 33-55-4010Zfzwzmn [Mass/Vol]143 mg/dLMartin Memorial Health Systems Physician GroupComment on above:Result Comment: PERFORMED BY: [place] [address] PATHOLOGIST PUBLIC INFORMATION OFFICER LIZZIE CASTRO M.D.Performed By: #### T4F, LIPID, TSH3, BMP #### [place] [id number] USABasic Metabolic Panelon 33-96-0304Hlvxgubdkg Clr Calc Cpisecka55.29NoIredell Memorial Hospital Physician GroupComment on above:Performed By: #### T4F, LIPID, TSH3, BMP #### [place] [id number] USAGFR/1.73 sq M.predicted MDRD (S/P/Bld) [Vol rate/Area] 36.330 mL/min/{1.73_m2}NormalThe [facility] Physician GroupComment on above: Performed By: #### T4F, LIPID, TSH3, BMP #### [facility] [address] [place] [address] USABasophils [#/volume] in Blood by Automated countOrdered By: Troy Rizzo on 26-37-8486Jupuijkxk (Bld) [#/Vol]0.0 10*3/uLNormal0.0-0.2 [facility] HospitalComment on above:Order Comment: Comment Every 6 hour while on tPAResult Comment: PERFORMED BY: [place] [address] PATHOLOGIST PUBLIC INFORMATION OFFICER LIZZIE CASTRO M.D.Performed By: #### T4F, LIPID, TSH3, BMP #### [place] [address] USABasophils/100 leukocytes in Blood by Automated count Ordered By: Troy Rizzo on 93-17-1259Trslazwew/100 WBC (Bld)0.4 %Normal. [facility] HospitalComment on above:Order Comment: Comment Every 6 hour while on tPAPerformed By: #### T4F, LIPID, TSH3, BMP #### [place] [address] USABlood estimated average glucose determination by estimation from glycated hemoglobinOrdered By: Andres Bryant on 14-71-4472Qiahzty glucose Estimated from glycated hemoglobin (Bld) [Mass/Vol]143 mg/dLDayton Osteopathic HospitalCalcium [Mass/volume] in Serum or PlasmaOrdered By: Andres Bryant on 78-97-2665Tkqibwo [Mass/Vol]8.7 mg/dLNormal8.6-10.3FParkview HealthComment on above:Performed By: #### T4F, LIPID, TSH3, BMP #### [facility] [address] [place] [address] USACarbon dioxide, total [Moles/volume] in Serum or Plasma Ordered By: Andres Bryant on 37-23-2158DX3 [Moles/Vol]28.4 mmol/JTyziwn77.0-31.0 [facility] HospitalComment on above:Performed By: #### T4F, LIPID, TSH3, BMP #### [facility] [address] [place] [address] USAChloride [Moles/volume] in Serum or PlasmaOrdered By: Andres Bryant on 61-17-3140Fiprojwa [Moles/Vol]107 mmol/UMxmuxk96-897RwborygwfDayton Osteopathic HospitalComment on above:Performed By: #### T4F, LIPID, TSH3, BMP #### [facility] [address] [place] [address] USACholesterol [Mass/volume] in Serum or PlasmaOrdered By: Andres Bryant on 71-61-7490Fdoglmzzvkz [Mass/Vol]135 mg/cRJhf501-112SqxcsqqmuDayton Osteopathic HospitalComment on above:Chol less than 200 mg/dl low riskChol 201-239 mg/dl borderline riskChol 240 mg/dl and greater high riskResult Comment: Chol less than 200 mg/dl low risk Chol 201-239 mg/dl borderline risk Chol 240 mg/dl and greater high riskPerformed By: #### T4F, LIPID, TSH3, BMP #### [facility] [address] [place] [address] USACholesterol in HDL [Mass/volume] in Serum or PlasmaOrdered By: Andres Bryant on 93-22-0309Ubxhaensycz in HDL [Mass/Vol]38 mg/bQWtocie20-58 [facility] HospitalComment on above:HDL CHOL ATP-III CLASSIFICATION Cardiovascular RiskHDL > or equal to 60 mg/dL LOWHDL < 40 mg/dL HIGHResult Comment: HDL CHOL ATP-III CLASSIFICATION Cardiovascular Risk HDL > or equal to 60 mg/dL LOW HDL < 40 mg/dL HIGHPerformed By: #### T4F, LIPID, TSH3, BMP #### [facility] [address] [place] [address] USACholesterol in LDL Calc [Mass/Vol]Ordered By: Andres Bryant on 46-58-9391Jodmcoweaal in LDL [Mass/Vol]78 mg/dL0-100Day[facility] HospitalComment on above:LDL ATP III CLASSIFICATIONLDL less than 100 mg/dL OptimalLDL 100-129 mg/dL Near or above scicplhSPX782-794 mg/dL Borderline highLDL 160-189 mg/dL HighLDL greater than 189 mg/dL Very highCholesterol in VLDL Calc [Mass/Vol]Ordered By: Andres Bryant on 55-98-7505Utbqppxsxmx in VLDL [Mass/Vol]19 mg/dLDayton Osteopathic HospitalCoagulation Profileon 81-93-7100eJJX Coag (Bld) [Time]31.7 qUagndf77.1-36.5The [facility] Physician GroupComment on above:Order Comment: Comment Every 6 hours while on tPAResult Comment: A hematocrit value greater than 55% may lead to inaccurate results in coagulation testing. Patients having hematocrit values >55% require a special collection tube for coagulation studies. Please contact the laboratory at [phone] for redraw instructions.Performed By: #### T4F, LIPID, TSH3, BMP #### [facility] [address] [place] [address] USAaPTT Coag (Bld) [Time]34.3 pLancqg94.1-36.5The [facility] Physician GroupComment on above:Order Comment: Comment Every 6 hours while on tPAResult Comment: A hematocrit value greater than 55% may lead to inaccurate results in coagulation testing. Patients having hematocrit values >55% require a special collection tube for coagulation studies. Please contact the laboratory at [phone] for redraw instructions.Performed By: #### T4F, LIPID, TSH3, BMP #### [facility] [address] [place] [address] USAINR Coag (PPP) [Relative time]1.5 {INR}NormalThe [facility] Physician GroupComment on above:Order Comment: Comment Every 6 hours while on tPAResult Comment: INR Therapeutic Range A) Pre- and [...] patients with mechanical heart valves: 3 - 4.5Performed By: #### T4F, LIPID, TSH3, BMP #### [address] [address] USAPT Coag (PPP) [Time]17.3 sHigh9.0-12.9The [facility] Physician GroupComment on above:Order Comment: Comment Every 6 hours while on tPAResult Comment: A hematocrit value greater than 55% may lead to inaccurate results in coagulation testing. Patients having hematocrit values >55% require a special collection tube for coagulation studies. Please contact the laboratory at [phone] for redraw instructions.Performed By: #### T4F, LIPID, TSH3, BMP #### [address] [address] USAaPTT Coag (Bld) [Time]38.7 sHigh25.1-36.5The [facility] Physician GroupComment on above:Order Comment: Comment Every 6 hours while on tPAResult Comment: A hematocrit value greater than 55% may lead to inaccurate results in coagulation testing. Patients having hematocrit values >55% require a special collection tube for coagulation studies. Please contact the laboratory at [phone] for redraw instructions.Performed By: #### T4F, LIPID, TSH3, BMP #### [address] [address] USAINR Coag (PPP) [Relative time]1.7 {INR}NormalThe [facility] Physician GroupComment on above:Order Comment: Comment Every 6 hours while on tPAResult Comment: INR Therapeutic Range A) Pre- and [...] patients with mechanical heart valves: 3 - 4.5Performed By: #### T4F, LIPID, TSH3, BMP #### [address] [address] USAPT Coag (PPP) [Time]19.6 sHigh9.0-12.9The [facility] Physician GroupComment on above:Order Comment: Comment Every 6 hours while on tPAResult Comment: A hematocrit value greater than 55% may lead to inaccurate results in coagulation testing. Patients having hematocrit values >55% require a special collection tube for coagulation studies. Please contact the laboratory at [phone] for redraw instructions.Performed By: #### T4F, LIPID, TSH3, BMP #### [place] [address] USAComplete Blood Count Auto Diffon 56-69-3878Bcwv Corpuscular HGB Conc33.5 g/yCNdoqjv25.5-35.6The [facility] Physician GroupComment on above:Order Comment: Comment Every 6 hour while on tPAPerformed By: #### T4F, LIPID, TSH3, BMP #### [place] [address] USANRBC%0.0 /100{WBC}Normal0-0.5The [facility] Group Comment on above:Order Comment: Comment Every 6 hour while on tPAPerformed By: #### T4F, LIPID, TSH3, BMP #### [place] [address] USAWhite Blood Count8.8 [CFU]/mLNormal4.1-10.5The [facility] Physician GroupComment on above:Order Comment: Comment Every 6 hour while on tPA Performed By: #### T4F, LIPID, TSH3, BMP #### [place] [address] USABasophils (Bld) [#/Vol]0.0 10*3/uLNormal0.0-0.2The [facility] Physician GroupComment on above:Order Comment: Comment Every 6 hour while on tPAResult Comment: PERFORMED BY: [place] [address] PATHOLOGIST PUBLIC INFORMATION OFFICER LIZZIE CASTRO M.D.Performed By: #### T4F, LIPID, TSH3, BMP #### [place] [address] USABasophils/100 WBC (Bld)0.5 %Normal.The [facility] Physician GroupComment on above:Order Comment: Comment Every 6 hour while on tPAPerformed By: #### T4F, LIPID, TSH3, BMP #### [place] [address] USAEosinophils (Bld) [#/Vol]0.1 10*3/uLNormal0.0-0.45The [facility] Physician GroupComment on above:Order Comment: Comment Every 6 hour while on tPAPerformed By: #### T4F, LIPID, TSH3, BMP #### [place] [address] USAEosinophils/100 WBC (Bld)1.5 %Normal.The [facility] Physician GroupComment on above:Order Comment: Comment Every 6 hour while on tPA Performed By: #### T4F, LIPID, TSH3, BMP #### [place] [address] USAErythrocyte distribution width (RBC) [Ratio]14.6 %Normal 12.0-14.8The [facility] Physician GroupComment on above:Order Comment: Comment Every 6 hour while on tPAPerformed By: #### T4F, LIPID, TSH3, BMP #### [place] [address] USAHematocrit (Bld) [Volume fraction]28.9 %Low38.8-50.0The [facility] Physician GroupComment on above:Order Comment: Comment Every 6 hour while on tPAPerformed By: #### T4F, LIPID, TSH3, BMP #### [facility] [address] [place] [address] USAHemoglobin (Bld) [Mass/Vol]9.7 g/dLLow13.0-17.0The [facility] Physician GroupComment on above:Order Comment: Comment Every 6 hour while on tPAPerformed By: #### T4F, LIPID, TSH3, BMP #### [place] [address] USALymphocytes (Bld) [#/Vol]1.4 10*3/uLNormal1.00-4.8The [facility] Physician GroupComment on above:Order Comment: Comment Every 6 hour while on tPAPerformed By: #### T4F, LIPID, TSH3, BMP #### [facility] [address] [place] [address] USALymphocytes/100 WBC (Bld)16.2 %Normal.[facility] Physician GroupComment on above:Order Comment: Comment Every 6 hour while on tPA Performed By: #### T4F, LIPID, TSH3, BMP #### [address] (RBC) [Entitic mass]30.1 joDedjlz57.5-35.2The [facility] Physician GroupComment on above:Order Comment: Comment Every 6 hour while on tPAPerformed By: #### T4F, LIPID, TSH3, BMP #### [address] (RBC) [Entitic vol]89.8 rMBkhskf23.5-101The [facility] Physician GroupComment on above:Order Comment: Comment Every 6 hour while on tPA Performed By: #### T4F, LIPID, TSH3, BMP #### [place] [address] USAMean Corpuscular HGB Conc33.5 g/nXJadsla82.5-35.6The [facility] Physician GroupComment on above:Order Comment: Comment Every 6 hour while on tPAPerformed By: #### T4F, LIPID, TSH3, BMP #### [place] [address] USAMonocytes (Bld) [#/Vol]1.0 10*3/uLHigh0.0-0.8The [facility] Physician GroupComment on above:Order Comment: Comment Every 6 hour while on tPAPerformed By: #### T4F, LIPID, TSH3, BMP #### [place] [address] USAMonocytes/100 WBC (Bld)12.0 %Normal.[facility] Physician GroupComment on above:Order Comment: Comment Every 6 hour while on tPA Performed By: #### T4F, LIPID, TSH3, BMP #### [facility] [address] [place] [address] USANeutrophils (Bld) [#/Vol]6.0 10*3/uLNormal1.8-7.7The [facility] Physician GroupComment on above:Order Comment: Comment Every 6 hour while on tPAPerformed By: #### T4F, LIPID, TSH3, BMP #### [facility] [facility] [address] [place] [address] USANeutrophils/100 WBC (Bld)69.8 %Normal.The [facility] Physician GroupComment on above:Order Comment: Comment Every 6 hour while on tPA Performed By: #### T4F, LIPID, TSH3, BMP #### [place] [address] USANRBC%0.0 /100{WBC}Normal0-0.5The [facility] Comment on above:Order Comment: Comment Every 6 hour while on tPAPerformed By: #### T4F, LIPID, TSH3, BMP #### [place] [address] USAPlatelet mean volume (Bld) [Entitic vol]7.3 fLNormal 6.6-10.1The [facility] Physician GroupComment on above:Order Comment: Comment Every 6 hour while on tPAPerformed By: #### T4F, LIPID, TSH3, BMP #### [place] [address] USAPlatelets (Bld) [#/Vol]264 10*3/bTScgsuf841-835Qcd [facility] Physician GroupComment on above:Order Comment: Comment Every 6 hour while on tPAPerformed By: #### T4F, LIPID, TSH3, BMP #### [place] [address] USARBC (Bld) [#/Vol]3.22 10*6/uLLow3.90-5.60The [facility] Physician GroupComment on above:Order Comment: Comment Every 6 hour while on tPA Performed By: #### T4F, LIPID, TSH3, BMP #### [place] [address] USAWBC (Bld) [#/Vol]8.6 10*3/uLNormal4.1-10.5The [facility] Physician GroupComment on above:Order Comment: Comment Every 6 hour while on tPA Performed By: #### T4F, LIPID, TSH3, BMP #### [place] [address] USAWhite Blood Count8.6 [CFU]/mLNormal4.1-10.5The [facility] Physician GroupComment on above:Order Comment: Comment Every 6 hour while on tPA Performed By: #### T4F, LIPID, TSH3, BMP #### [place] [address] USABasophils (Bld) [#/Vol]0.0 10*3/uLNormal0.0-0.2The [facility] Physician GroupComment on above:Order Comment: Comment Every 6 hour while on tPAResult Comment: PERFORMED BY: [place] [address] PATHOLOGIST PUBLIC INFORMATION OFFICER LIZZIE CASTRO M.D.Performed By: #### T4F, LIPID, TSH3, BMP #### [place] [address] USABasophils/100 WBC (Bld)0.5 %Normal.The [facility] Physician GroupComment on above:Order Comment: Comment Every 6 hour while on tPAPerformed By: #### T4F, LIPID, TSH3, BMP #### [place] [address] USAEosinophils (Bld) [#/Vol]0.1 10*3/uLNormal0.0-0.45The [facility] Physician GroupComment on above:Order Comment: Comment Every 6 hour while on tPAPerformed By: #### T4F, LIPID, TSH3, BMP #### [place] [address] USAEosinophils/100 WBC (Bld)0.9 %Normal.The [facility] Physician GroupComment on above:Order Comment: Comment Every 6 hour while on tPA Performed By: #### T4F, LIPID, TSH3, BMP #### [place] [address] USAErythrocyte distribution width (RBC) [Ratio]14.9 %High 12.0-14.8The [facility] Physician GroupComment on above:Order Comment: Comment Every 6 hour while on tPAPerformed By: #### T4F, LIPID, TSH3, BMP #### [place] [address] USAHematocrit (Bld) [Volume fraction]29.3 %Low38.8-50.0The [facility] Physician GroupComment on above:Order Comment: Comment Every 6 hour while on tPAPerformed By: #### T4F, LIPID, TSH3, BMP #### [place] [address] USAHemoglobin (Bld) [Mass/Vol]9.8 g/dLLow13.0-17.0The [facility] Physician GroupComment on above:Order Comment: Comment Every 6 hour while on tPAPerformed By: #### T4F, LIPID, TSH3, BMP #### [place] [id number] USALymphocytes (Bld) [#/Vol]1.5 10*3/uLNormal1.00-4.8The [facility] Physician GroupComment on above:Order Comment: Comment Every 6 hour while on tPAPerformed By: #### T4F, LIPID, TSH3, BMP #### [place] [id number] USALymphocytes/100 WBC (Bld)16.6 %Normal.The [facility] Physician GroupComment on above:Order Comment: Comment Every 6 hour while on tPA Performed By: #### T4F, LIPID, TSH3, BMP #### [place] [id number] USAMCH (RBC) [Entitic mass]29.6 pbMefrlq35.5-35.2The [facility] Physician GroupComment on above:Order Comment: Comment Every 6 hour while on tPAPerformed By: #### T4F, LIPID, TSH3, BMP #### [place] [address] USAMCV (RBC) [Entitic vol]88.6 zFXxzxod36.5-101The [facility] Physician GroupComment on above:Order Comment: Comment Every 6 hour while on tPA Performed By: #### T4F, LIPID, TSH3, BMP #### [facility] [address] [place] [address] USAMean Corpuscular HGB Conc33.4 g/oRAckgcv06.5-35.6The [facility] Physician GroupComment on above:Order Comment: Comment Every 6 hour while on tPAPerformed By: #### T4F, LIPID, TSH3, BMP #### [place] [address] USAMonocytes (Bld) [#/Vol]1.0 10*3/uLHigh0.0-0.8The [facility] Physician GroupComment on above:Order Comment: Comment Every 6 hour while on tPAPerformed By: #### T4F, LIPID, TSH3, BMP #### [facility] [address] [place], [place] [id number] USAMonocytes/100 WBC (Bld)10.9 %Normal.The [facility] Physician GroupComment on above:Order Comment: Comment Every 6 hour while on tPA Performed By: #### T4F, LIPID, TSH3, BMP #### [place] [address] USANeutrophils (Bld) [#/Vol]6.4 10*3/uLNormal1.8-7.7The [facility] Physician GroupComment on above:Order Comment: Comment Every 6 hour while on tPAPerformed By: #### T4F, LIPID, TSH3, BMP #### [facility] [address] [place] [address] USANeutrophils/100 WBC (Bld)71.1 %Normal.The [facility] Physician GroupComment on above:Order Comment: Comment Every 6 hour while on tPA Performed By: #### T4F, LIPID, TSH3, BMP #### [facility] [address] [place] [address] USANRBC%0.0 /100{WBC}Normal0-0.5The [facility] Comment on above:Order Comment: Comment Every 6 hour while on tPAPerformed By: #### T4F, LIPID, TSH3, BMP #### [facility] [address] [place] [address] USAPlatelet mean volume (Bld) [Entitic vol]7.0 fLNormal 6.6-10.1The [facility] Physician GroupComment on above:Order Comment: Comment Every 6 hour while on tPAPerformed By: #### T4F, LIPID, TSH3, BMP #### [place] [address] USAPlatelets (Bld) [#/Vol]289 10*3/qOSyfcwj008-349Qdg [facility] Physician GroupComment on above:Order Comment: Comment Every 6 hour while on tPAPerformed By: #### T4F, LIPID, TSH3, BMP #### [place] [address] USARBC (Bld) [#/Vol]3.31 10*6/uLLow3.90-5.60The [facility] Physician GroupComment on above:Order Comment: Comment Every 6 hour while on tPA Performed By: #### T4F, LIPID, TSH3, BMP #### [facility] [address] [place] [address] USAWBC (Bld) [#/Vol]9.0 10*3/uLNormal4.1-10.5The [facility] Physician GroupComment on above:Order Comment: Comment Every 6 hour while on tPA Performed By: #### T4F, LIPID, TSH3, BMP #### [facility] [address] [place] [address] USAWhite Blood Count9.0 [CFU]/mLNormal4.1-10.5The [facility] Physician GroupComment on above:Order Comment: Comment Every 6 hour while on tPA Performed By: #### T4F, LIPID, TSH3, BMP #### [facility] [address] [place] [address] USACreatinine [Mass/volume] in Serum or PlasmaOrdered By: Andres Bryant on 96-59-8507Quoaotongf [Mass/Vol]1.95 mg/dLHigh0.70-1.30[facility] HospitalComment on above:Performed By: #### T4F, LIPID, TSH3, BMP #### [facility] [address] [place] [address] USAECG 12 lead ECGon 27-98-3312ZWT 12 lead ECGPE[place] [address] Electrocardiograph Report Signed Patient: Evelio Irene MR#: [id number] : 1955 Acct:[id number] Age/Sex: 69 / M ADM Date: 03/03/25 Loc: Room: [address] [place] [address] Type: ADM IN Attending Dr: Troy Rizzo [...] variant Abnormal ECG Confirmed by Joaquin Garza ([id number]) on 03/04/2025 3:07:40 PM Referred By: Electronically Signed By: Joaquin Garza Transcribed By: MUS Signed By Joaquin Garza MD 03/04/25 1507[facility] Physician GroupECH echo transthoracicon 02-38-6814FEM echo transthoracicPEOPLES HOSPITAL Main [address] [address] Echocardiogram Signed Patient: Evelio Irene MR#: [id number] : 1955 Acct:[id number] Age/Sex: 69 / M ADM Date: 03/03/25 Loc: Room: [address] [place] [address] Type: ADM IN Attending Dr: Troy iRzzo MD Ordering Provider: Andres Bryant DO Date of Service: 03/03/25 ECH/ECH echo transthoracic: a-fib Copies to: MD Andres English, Weight: 254 lb Performed By: GERTRUDIS Thorne [...] 4.2 cm2 ADAM(V,D): 4.2 cm2 Transcribed By: LUIS Performed At: 03/04/25 1257 Signed By: Joaquin Garza MD 03/04/25 1644[facility] Physician GroupEosinophils [#/volume] in Blood by Automated countOrdered By: Troy Rizzo on 36-97-8603Ycilybkvtsd (Bld) [#/Vol]0.1 10*3/uLNormal0.0-0.45 [facility] HospitalComment on above:Order Comment: Comment Every 6 hour while on tPAPerformed By: #### T4F, LIPID, TSH3, BMP #### [facility] [address] [place] [address] USAEosinophils/100 leukocytes in Blood by Automated count Ordered By: Troy Rizzo on 75-20-6971Tnuxbbrqodo/100 WBC (Bld)1.0 %Normal. [facility] HospitalComment on above:Order Comment: Comment Every 6 hour while on tPAPerformed By: #### T4F, LIPID, TSH3, BMP #### [facility] [address] [place] [id number] USAErythrocyte distribution width [Ratio] by Automated count Ordered By: Troy Rzizo on 82-74-8997Wucuwsgzzgg distribution width (RBC) [Ratio]14.6 %Lfbqxn74.0-14.8[facility] HospitalComment on above: Order Comment: Comment Every 6 hour while on tPAPerformed By: #### T4F, LIPID, TSH3, BMP #### [facility] [address] [place] [address] USAErythrocytes [#/volume] in Blood by Automated countOrdered By: Troy Rizzo on 32-22-1464CPK (Bld) [#/Vol]3.30 10*6/uLLow3.90-5.60 [facility] HospitalComment on above:Order Comment: Comment Every 6 hour while on tPAPerformed By: #### T4F, LIPID, TSH3, BMP #### [facility] [address] [place] [address] USAFibrinogenon 59-42-0785Jgevllobdg053 mg/gWGib146-409Aai [facility] Physician GroupComment on above:Order Comment: Comment Every 6 hours while on tPAResult Comment: A hematocrit value greater than 55% may lead to inaccurate results in coagulation testing. Patients having hematocrit values >55% require a special collection tube for coagulation studies. Please contact the laboratory at [phone] for redraw instructions. PERFORMED BY: [place] [address] PATHOLOGIST PUBLIC INFORMATION OFFICER LIZZIE CASTRO M.D.Performed By: #### T4F, LIPID, TSH3, BMP #### [facility] [address] [place] [address] DDLMwsdkyludp979 mg/mKBkn815-281Oxt [facility] Comment on above:Order Comment: Comment Every 6 hours while on tPAResult Comment: A hematocrit value greater than 55% may lead to inaccurate results in coagulation testing. Patients having hematocrit values >55% require a special collection tube for coagulation studies. Please contact the laboratory at [phone] for redraw instructions. PERFORMED BY: [place] [address] PATHOLOGIST PUBLIC INFORMATION OFFICER LIZZIE CASTRO M.D.Performed By: #### T4F, LIPID, TSH3, BMP #### [facility] [address] [place] [address] OVLXfqtelhrtp635 mg/gIRqi966-958Tmd [facility] Comment on above:Order Comment: Comment Every 6 hours while on tPAResult Comment: A hematocrit value greater than 55% may lead to inaccurate results in coagulation testing. Patients having hematocrit values >55% require a special collection tube for coagulation studies. Please contact the laboratory at [phone] for redraw instructions. PERFORMED BY: [address] [address] PATHOLOGIST PUBLIC INFORMATION OFFICER LIZZIE CASTRO M.D.Performed By: #### T4F, LIPID, TSH3, BMP #### [facility] [address] [place] [address] USAFibrinogen [Mass/volume] in Platelet poor plasma by Coagulation assayOrdered By: Troy Rizzo on 15-65-9972Rlejvjmwzt Coag (PPP) [Mass/Vol]166 mg/eABcc421-520GckgxxoguDayton Osteopathic HospitalComment on above:A hematocrit value greater than 55% may lead to inaccurate results in coagulation testing. Patientshaving hematocrit values >55% require a special collection tube for coagulation studies. Please contact the laboratory at [phone] for redraw instructions.Glomerular filtration rate [Volume Rate/Area] in Serum, Plasma or Blood by CreatinineOrdered By: Andres Bryant on 12-03-0377Fzhuvfdtnf filtration rate [Volume Rate/Area] in Serum, Plasma or Blood by Lzzimwjfnz73.330 mL/MinDayton Osteopathic HospitalGlucose Poct Glucometerson 03-04-2025 Glucose [Mass/Vol]245 mg/dLMartin Memorial Health Systems Physician [facility] HospitalComment on above: Result Comment: Random Glucose Reference Range is dependent on time and content of last meal. Glucose of more than 200 mg/dL in a nonstressed, ambulatory subject supports the diagnosis of Diabetes Mellitus. PERFORMED BY: [address] [place] [address] PATHOLOGIST PUBLIC INFORMATION OFFICER LIZZIE CASTRO M.D.Performed By: #### T4F, LIPID, TSH3, BMP #### [facility] [address] [place] [address] [id number]: Cleaned MeterNoIredell Memorial Hospital Physician GroupComment on above:Result Comment: PERFORMED BY: [facility] [address] [place] [address] PATHOLOGIST PUBLIC INFORMATION OFFICER LIZZIE CASTRO M.D.Performed By: #### T4F, LIPID, TSH3, BMP #### [place] [address] USAGlucose [Mass/Vol]264 mg/dLNoIredell Memorial Hospital Physician GroupComment on above:Result Comment: Random Glucose Reference Range is dependent on time and content of last meal. Glucose of more than 200 mg/dL in a nonstressed, ambulatory subject supports the diagnosis of Diabetes Mellitus.Performed By: #### T4F, LIPID, TSH3, BMP #### [place] [address] XUMQoigmep6Jts8: Cleaned MeterNormHCA Florida Saras[facility] Physician GroupComment on above:Result Comment: PERFORMED BY: [place] [address] PATHOLOGIST PUBLIC INFORMATION OFFICER LIZZIE CASTRO M.D.Performed By: #### T4F, LIPID, TSH3, BMP #### [place] [address] USAGlucose [Mass/Vol]145 mg/dLNoIredell Memorial Hospital Physician GroupComment on above:Result Comment: Random Glucose Reference Range is dependent on time and content of last meal. Glucose of more than 200 mg/dL in a nonstressed, ambulatory subject supports the diagnosis of Diabetes Mellitus.Performed By: #### T4F, LIPID, TSH3, BMP #### [place] [id number] [id number]: Cleaned MeterNormHCA Florida Saras[facility] Doctors Hospital Physician GroupComment on above:Result Comment: PERFORMED BY: [place] [address] PATHOLOGIST PUBLIC INFORMATION OFFICER LIZZIE CASTRO M.D.Performed By: #### T4F, LIPID, TSH3, BMP #### [place] [id number] USAGlucose [Mass/Vol]114 mg/dLNoMiddletown Hospital Firelands Physician GroupComment on above:Result Comment: Random Glucose Reference Range is dependent on time and content of last meal. Glucose of more than 200 mg/dL in a nonstressed, ambulatory subject supports the diagnosis of Diabetes Mellitus.Performed By: #### T4F, LIPID, TSH3, BMP #### [facility] [address] [place] [address] USAGlucose [Mass/volume] in Serum or PlasmaOrdered By: Andres Bryant on 00-02-7353Djcjlhg [Mass/Vol]87 mg/dCFbuarc29-207JlgyynvfrDayton Osteopathic HospitalComment on above:ADA recommended reference rangeRandom Glucose Reference Range is dependent on time and content of last meal. Glucose of more than 200 mg/dL in a nonstressed, ambulatory subject supports the diagnosisof Diabetes Mellitus.Result Comment: Random Glucose Reference Range is dependent on time and content of last meal. Glucose of more than 200 mg/dL in a nonstressed, ambulatory subject supports the diagnosis of Diabetes Mellitus. ADA recommended reference rangePerformed By: #### T4F, LIPID, TSH3, BMP #### [facility] [address] [place] [address] USAHematocrit [Volume Fraction] of Blood by Automated count Ordered By: Troy Rizzo on 62-48-2848Yaovycaabp (Bld) [Volume fraction]29.6 %Low38.8-50.0[facility]opathic HospitalComment on above:Order Comment: Comment Every 6 hour while on tPAPerformed By: #### T4F, LIPID, TSH3, BMP #### [facility] [address] [place] [address] USAHemoglobin A1c/Hemoglobin.total in BloodOrdered By: Andres Bryant on 78-98-4688DtR5n (Bld) [Mass fraction]6.6 %High4.3-5.6FParkview HealthComment on above:Increased risk for diabetes: 5.7 - 6.4diabetes: >6.4glycemic control for adults with diabetes: <7.0Result Comment: Increased risk for diabetes: 5.7 - 6.4 diabetes: >6.4 glycemic control for adults with diabetes: <7.0Performed By: #### T4F, LIPID, TSH3, BMP #### [facility] [address] [place] [address] USAHemoglobin [Mass/volume] in BloodOrdered By: Troy Rizzo on 09-72-4868Enmxcqlxwu (Bld) [Mass/Vol]9.9 g/dLLow13.0-17.0[facility] HospitalComment on above:Order Comment: Comment Every 6 hour while on tPAPerformed By: #### T4F, LIPID, TSH3, BMP #### [facility] [address] [place] [address] USAINR in Platelet poor plasma by Coagulation assayOrdered By: Troy Rizzo on 01-00-9016RNM Coag (PPP) [Relative time]1.3 {INR}Normal [facility] HospitalComment on above:INR Therapeutic Range A) Pre- and Peroperative OAT started two weeks before surgery. NOT HIP SURGERY: 1.5 - 2.5 HIP SURGERY: 2 - 3B) Primary and secondary prevention of venous THROMBOSIS: 2 - 3C) Active venous thrombosis, pulmonary embolismand prevention of recurrent venous thrombosis: 2 - 3D) Prevention of arterial thromboembolismincluding patients with mechanical heart valves: 3 - 4.5Order Comment: Comment Every 6 hours while on tPAResult Comment: INR Therapeutic Range A) Pre- and [...] patients with mechanical heart valves: 3 - 4.5Performed By: #### T4F, LIPID, TSH3, BMP #### [facility] [address] [place] [address] USALeukocytes [#/volume] corrected for nucleated erythrocytes in Blood by Automated counOrdered By: Troy Rizzo on 78-58-3735OUF corrected for nucl RBC Auto (Bld) [#/Vol]8.8 10*3/uL4.1-10.5FParkview HealthLeukocytes [#/volume] in Blood by Automated countOrdered By: Troy Rizzo on 81-81-2636SNO (Bld) [#/Vol]8.8 10*3/uLNormal4.1-10.5FParkview HealthComment on above:Order Comment: Comment Every 6 hour while on tPAPerformed By: #### T4F, LIPID, TSH3, BMP #### [facility] [address] [place] [address] USALipid Panelon 55-69-8053DWS Cholesterol,Nvckkgpuhh80 mg/dL Normal0-100The [facility] Physician GroupComment on above:Result Comment: LDL ATP III CLASSIFICATION LDL less than 100 mg/dL Optimal LDL 100-129 mg/dL Near or above optimal LDL 130-159 mg/dL Borderline high LDL 160-189 mg/dL High LDL greater than 189 mg/dL Very highPerformed By: #### T4F, LIPID, TSH3, BMP #### [facility] [address] [place] [address] USATriglyceride w/Elyhbq09 mg/dLNormal0-149The [facility] Physician [facility] HospitalComment on above:Result Comment: TRIG ATP III CLASSIFICATION TRIG less than 150 mg/dL Normal TRIG 150-199 mg/dL Borderline high TRIG 200-500 mg/dL High TRIG greater than 500 mg/dL Very high Standard traceable to the Center for Disease Conrtrol and Prevention (CDC) test method.Performed By: #### T4F, LIPID, TSH3, BMP #### [facility] [address] [place] [address] USAVLDL RCACUOIGQXY70 mg/dLNormalThe [facility] Physician GroupComment on above:Performed By: #### T4F, LIPID, TSH3, BMP #### [facility] [address] [place] [address] USALymphocytes [#/volume] in Blood by Automated countOrdered By: Troy Rizzo on 56-72-1942Arvsurojioo (Bld) [#/Vol]1.2 10*3/uLNormal 1.00-4.8[facility] HospitalComment on above:Order Comment: Comment Every 6 hour while on tPAPerformed By: #### T4F, LIPID, TSH3, BMP #### [facility] [address] [place] [address] USALymphocytes/100 leukocytes in Blood by Automated count Ordered By: Troy Rizzo on 91-03-9746Ruvzrnzaqgl/100 WBC (Bld)13.3 %Normal. [facility] HospitalComment on above:Order Comment: Comment Every 6 hour while on tPAPerformed By: #### T4F, LIPID, TSH3, BMP #### [facility] [address] [place] [address] [facility]H [Entitic mass] by Automated countOrdered By: Troy Rizzo on 25-95-7352HCD (RBC) [Entitic mass]30.0 cdWhdrqj26.5-35.2FParkview HealthComment on above:Order Comment: Comment Every 6 hour while on tPAPerformed By: #### T4F, LIPID, TSH3, BMP #### [facility] [address] [place] [address] [facility] Auto (RBC) [Mass/Vol]Ordered By: Troy Rizzo on 35-75-0380ZVXY (RBC) [Mass/Vol]33.5 g/dL32.5-35.6FParkview HealthMCV [Entitic volume] by Automated countOrdered By: Troy Rizzo on 02-25-2161IIE (RBC) [Entitic vol]89.5 oCEuyxqd03.5-101Day[facility] HospitalComment on above:Order Comment: Comment Every 6 hour while on tPAPerformed By: #### T4F, LIPID, TSH3, BMP #### [facility] [address] [place] [address] USAMonocytes [#/volume] in Blood by Automated countOrdered By: Troy Rizzo on 15-58-7112Neejqwwhj (Bld) [#/Vol]0.8 10*3/uLNormal0.0-0.8 [facility] HospitalComment on above:Order Comment: Comment Every 6 hour while on tPAPerformed By: #### T4F, LIPID, TSH3, BMP #### [facility] [address] [place] [address] USAMonocytes/100 leukocytes in Blood by Automated count Ordered By: Troy Rizzo on 08-33-7709Zrwbwickf/100 WBC (Bld)9.5 %Normal. [facility] HospitalComment on above:Order Comment: Comment Every 6 hour while on tPAPerformed By: #### T4F, LIPID, TSH3, BMP #### [facility] [address] [place] [address] USANeutrophils [#/volume] in Blood by Automated countOrdered By: Troy Rizzo on 26-18-4496Dqtdibgyogf (Bld) [#/Vol]6.7 10*3/uLNormal 1.8-7.7FParkview HealthComment on above:Order Comment: Comment Every 6 hour while on tPAPerformed By: #### T4F, LIPID, TSH3, BMP #### [facility] [address] [place] [address] USANeutrophils/100 leukocytes in Blood by Automated count Ordered By: Troy Rizzo on 61-94-1998Skqzplnsluy/100 WBC (Bld)75.8 %Normal. [facility] HospitalComment on above:Order Comment: Comment Every 6 hour while on tPAPerformed By: #### T4F, LIPID, TSH3, BMP #### [facility] [address] [place] [address] USANo Panel InformationOrdered By: Troy Rizzo on 73-35-0404Dxttxvv Glucose CommentGlu2: cleaned meterDayton Osteopathic HospitalNo Panel InformationOrdered By: Andres Bryant on 83-48-5024Nvcqfght Creatinine Clearance (Chem46.29Day[facility] Osteopathic HospitalNucleated erythrocytes [Presence] in Blood by Automated countOrdered By: Troy Rizzo on 42-09-7101Vtyihdjog RBC Auto Ql (Bld)0.0 /100{WBC}0-0.5FParkview HealthPlatelet mean volume [Entitic volume] in Blood by Automated count Ordered By: Troy Rizzo on 01-80-8443Orynptzu mean volume (Bld) [Entitic vol]7.5 fLNormal6.6-10.1FParkview HealthComment on above:Order Comment: Comment Every 6 hour while on tPAPerformed By: #### T4F, LIPID, TSH3, BMP #### [facility] [address] [place] [address] USAPlatelets [#/volume] in Blood by Automated countOrdered By: Troy Rizzo on 30-07-8959Mrfaerhft (Bld) [#/Vol]273 10*3/qFNyjipo169-620 [facility] HospitalComment on above:Order Comment: Comment Every 6 hour while on tPAPerformed By: #### T4F, LIPID, TSH3, BMP #### [address] [address] USAPotassium [Moles/volume] in Serum or PlasmaOrdered By: Andres Bryant on [id number] [Moles/Vol]3.9 mmol/LNormal3.5-5.1FParkview HealthComment on above:Performed By: #### T4F, LIPID, TSH3, BMP #### [facility] [address] [place], [place] [id number] USAProthrombin time (PT)Ordered By: Troy Rizzo on [id number] Coag (PPP) [Time]15.2 sHigh9.0-12.9Dayton Osteopathic HospitalComment on above:A hematocrit value greater than 55% may lead to inaccurate results in coagulation testing. Patientshaving hematocrit values >55% require a special collection tube for coagulation studies. Please contact the laboratory at [phone] for redraw instructions.Order Comment: Comment Every 6 hours while on tPAResult Comment: A hematocrit value greater than 55% may lead to inaccurate results in coagulation testing. Patients having hematocrit values >55% require a special collection tube for coagulation studies. Please contact the laboratory at [phone] for redraw instructions.Performed By: #### T4F, LIPID, TSH3, BMP #### [facility] [address] [place] [address] USASerum or plasma anion gap determinationOrdered By: Andres Bryant on 76-59-6441Txuxm gap [Moles/Vol]9.5 mmol/LNormal6.0-15.0Day[facility] Osteopathic HospitalComment on above:Performed By: #### T4F, LIPID, TSH3, BMP #### [facility] [address] [place], [place] [id number] USASerum or plasma total cholesterol/high density lipoprotein (HDL) cholesterol mass ratOrdered By: Andres Bryant on 03-04-2025 Cholesterol.total/Cholesterol in HDL [Mass ratio]3.6 {ratio}Normal<5.0Day[facility] Osteopathic HospitalComment on above:Performed By: #### T4F, LIPID, TSH3, BMP #### [facility] [address] [place], [place] [address] USASodium [Moles/volume] in Serum or PlasmaOrdered By: Andres Bryant on 39-47-0764Izfbrj [Moles/Vol]141 mmol/APccwcs383-019ZavzsiszrDayton Osteopathic HospitalComment on above:Performed By: #### T4F, LIPID, TSH3, BMP #### [place] [id number] USAThyroid Stimulating Hormoneon 01-56-5846HHY Qn1.93 m[IU]/L Normal0.45-5.33The [facility] Physician GroupComment on above:Result Comment: PERFORMED BY: [place] [id number] PATHOLOGIST PUBLIC INFORMATION OFFICER LIZZIE CASTRO M.D.Performed By: #### T4F, LIPID, TSH3, BMP #### [facility] [address] [place] [address] USAThyrotropin [Units/volume] in Serum or PlasmaOrdered By: Any Garcia on 95-11-3542XQP Qn1.44 m[IU]/LNormal0.45-5.33Day[facility] Osteopathic HospitalComment on above:Result Comment: PERFORMED BY: [address] [address] PATHOLOGIST PUBLIC INFORMATION OFFICER LIZZIE CASTRO M.D.Performed By: #### T4F, LIPID, TSH3, BMP #### [facility] [address] [place] [address] USAThyroxine (T4) free [Mass/volume] in Serum or Plasma Ordered By: Andres Bryant on 56-39-6781Qccx T4 [Mass/Vol]0.97 ng/dLNormal 0.61-1.12Day[facility] Osteopathic HospitalComment on above:Performed By: #### T4F, LIPID, TSH3, BMP #### [facility] [address] [place] [address] USATriglyceride [Mass/volume] in Serum or PlasmaOrdered By: Andres Bryant on 29-25-5079Xjzjohhthddk [Mass/Vol]97 mg/dL0-149Day[facility] Osteopathic HospitalComment on above:TRIG ATP III CLASSIFICATIONTRIG less than 150 mg/dL NormalTRIG 150-199 mg/dL Borderline highTRIG 200-500 mg/dL High TRIG greater than 500 mg/dL Very highStandard traceable to the Center for Disease Co nrtrol and Prevention (CDC) test method.Urea nitrogen [Mass/volume] in Serum or PlasmaOrdered By: Andres Bryant on 71-84-8074Lzri nitrogen [Mass/Vol]27 mg/dLHigh 7-25Day[facility] Osteopathic HospitalComment on above:Performed By: #### T4F, LIPID, TSH3, BMP #### [facility] [address] [place] [address] USAaPTT in Platelet poor plasma by Coagulation assayOrdered By: Troy Rizzo on 29-55-7583qQIB Coag (PPP) [Time]31.7 s25.1-36.5FParkview HealthComment on above:A hematocrit value greater than 55% may lead to inaccurate results in coagulation testing. Patientshaving hematocrit values >55% require a special collection tube for coagulation studies. Please c ontact the laboratory at [phone] for redraw instructions.Blood Urea Nitrogenon 16-16-7628Wfpx nitrogen [Mass/Vol]25 mg/dLNormal7-25The [facility] Physician GroupComment on above:Performed By: #### T4F, LIPID, TSH3, BMP #### [facility] [address] [place] [address] USACoagulation Profileon 46-55-6025iCYN Coag (Bld) [Time]38.2 sHigh25.1-36.5The [facility] Physician GroupComment on above:Order Comment: Comment Every 6 hours while on tPAResult Comment: A hematocrit value greater than 55% may lead to inaccurate results in coagulation testing. Patients having hematocrit values >55% require a special collection tube for coagulation studies. Please contact the laboratory at [phone] for redraw instructions.Performed By: #### T4F, LIPID, TSH3, BMP #### [facility] [address] [place] [address] USAINR Coag (PPP) [Relative time]1.9 {INR}NormalThe [facility] Physician GroupComment on above:Order Comment: Comment Every 6 hours while on tPAResult Comment: INR Therapeutic Range A) Pre- and [...] patients with mechanical heart valves: 3 - 4.5Performed By: #### T4F, LIPID, TSH3, BMP #### [facility] [address] [place] [address] USAPT Coag (PPP) [Time]21.1 sHigh9.0-12.9The [facility] Physician GroupComment on above:Order Comment: Comment Every 6 hours while on tPAResult Comment: A hematocrit value greater than 55% may lead to inaccurate results in coagulation testing. Patients having hematocrit values >55% require a special collection tube for coagulation studies. Please contact the laboratory at [phone] for redraw instructions.Performed By: #### T4F, LIPID, TSH3, BMP #### [facility] [address] [place] [address] USAaPTT Coag (Bld) [Time]70.1 sHigh25.1-36.5The [facility] Physician GroupComment on above:Order Comment: Comment Every 6 hours while on tPAResult Comment: A hematocrit value greater than 55% may lead to inaccurate results in coagulation testing. Patients having hematocrit values >55% require a special collection tube for coagulation studies. Please contact the laboratory at [phone] for redraw instructions.Performed By: #### FIB-C, CBC, PP #### [facility] [address] [place] [address] USAINR Coag (PPP) [Relative time]2.3 {INR}NormalThe [facility] Physician GroupComment on above:Order Comment: Comment Every 6 hours while on tPAResult Comment: INR Therapeutic Range A) Pre- and [...] patients with mechanical heart valves: 3 - 4.5Performed By: #### FIB- C, CBC, PP #### [facility] [address] [place] [address] USAPT Coag (PPP) [Time]25.3 sHigh9.0-12.9The [facility] Physician GroupComment on above:Order Comment: Comment Every 6 hours while on tPAResult Comment: A hematocrit value greater than 55% may lead to inaccurate results in coagulation testing. Patients having hematocrit values >55% require a special collection tube for coagulation studies. Please contact the laboratory at [phone] for redraw instructions.Performed By: #### FIB-C, CBC, PP #### [facility] [address] [place] [id number] USAComplete Blood Count Auto Diffon 20-15-5293Bgdfxiwqv (Bld) [#/Vol]0.1 10*3/uLNormal0.0-0.2The [facility] Physician GroupComment on above: Order Comment: Comment Every 6 hour while on tPAResult Comment: PERFORMED BY: [address] [place] [id number] PATHOLOGIST PUBLIC INFORMATION OFFICER LIZZIE CASTRO M.D.Performed By: #### T4F, LIPID, TSH3, BMP #### [place] [address] USABasophils/100 WBC (Bld)0.5 %Normal.The [facility] Physician GroupComment on above:Order Comment: Comment Every 6 hour while on tPAPerformed By: #### T4F, LIPID, TSH3, BMP #### [place] [address] USAEosinophils (Bld) [#/Vol]0.1 10*3/uLNormal0.0-0.45The [facility] Physician GroupComment on above:Order Comment: Comment Every 6 hour while on tPAPerformed By: #### T4F, LIPID, TSH3, BMP #### [place] [address] USAEosinophils/100 WBC (Bld)0.6 %Normal.The [facility] Physician GroupComment on above:Order Comment: Comment Every 6 hour while on tPA Performed By: #### T4F, LIPID, TSH3, BMP #### [place] [address] USAErythrocyte distribution width (RBC) [Ratio]15.0 %High 12.0-14.8The [facility] Physician GroupComment on above:Order Comment: Comment Every 6 hour while on tPAPerformed By: #### T4F, LIPID, TSH3, BMP #### [place] [address] USAHematocrit (Bld) [Volume fraction]30.4 %Low38.8-50.0The [facility] Physician GroupComment on above:Order Comment: Comment Every 6 hour while on tPAPerformed By: #### T4F, LIPID, TSH3, BMP #### [place] [address] USAHemoglobin (Bld) [Mass/Vol]10.2 g/dLLow13.0-17.0The [facility] Physician GroupComment on above:Order Comment: Comment Every 6 hour while on tPAPerformed By: #### T4F, LIPID, TSH3, BMP #### [facility] [address] [place] [address] USALymphocytes (Bld) [#/Vol]1.2 10*3/uLNormal1.00-4.8The [facility] Physician GroupComment on above:Order Comment: Comment Every 6 hour while on tPAPerformed By: #### T4F, LIPID, TSH3, BMP #### [place] [address] USALymphocytes/100 WBC (Bld)11.4 %Normal.The [facility] Physician GroupComment on above:Order Comment: Comment Every 6 hour while on tPA Performed By: #### T4F, LIPID, TSH3, BMP #### [address] (RBC) [Entitic mass]30.2 zwIoajxo76.5-35.2The [facility] Physician GroupComment on above:Order Comment: Comment Every 6 hour while on tPAPerformed By: #### T4F, LIPID, TSH3, BMP #### [address] (RBC) [Entitic vol]89.8 xLOswfmg19.5-101The [facility] Physician GroupComment on above:Order Comment: Comment Every 6 hour while on tPA Performed By: #### T4F, LIPID, TSH3, BMP #### [place] [address] USAMean Corpuscular HGB Conc33.6 g/uNOuhyzj17.5-35.6The [facility] Physician GroupComment on above:Order Comment: Comment Every 6 hour while on tPAPerformed By: #### T4F, LIPID, TSH3, BMP #### [place] [address] USAMonocytes (Bld) [#/Vol]1.1 10*3/uLHigh0.0-0.8The [facility] Physician GroupComment on above:Order Comment: Comment Every 6 hour while on tPAPerformed By: #### T4F, LIPID, TSH3, BMP #### [facility] [address] [place], [place] [address] USAMonocytes/100 WBC (Bld)10.2 %Normal.The [facility] Physician GroupComment on above:Order Comment: Comment Every 6 hour while on tPA Performed By: #### T4F, LIPID, TSH3, BMP #### [place] [address] USANeutrophils (Bld) [#/Vol]8.1 10*3/uLHigh1.8-7.7The [facility] Physician GroupComment on above:Order Comment: Comment Every 6 hour while on tPAPerformed By: #### T4F, LIPID, TSH3, BMP #### [place] [address] USANeutrophils/100 WBC (Bld)77.3 %Normal.The [facility] Physician GroupComment on above:Order Comment: Comment Every 6 hour while on tPA Performed By: #### T4F, LIPID, TSH3, BMP #### [place] [address] USANRBC%0.0 /100{WBC}Normal0-0.5The [facility] Comment on above:Order Comment: Comment Every 6 hour while on tPAPerformed By: #### T4F, LIPID, TSH3, BMP #### [place] [address] USAPlatelet mean volume (Bld) [Entitic vol]7.6 fLNormal 6.6-10.1The [facility] Physician GroupComment on above:Order Comment: Comment Every 6 hour while on tPAPerformed By: #### T4F, LIPID, TSH3, BMP #### [facility] [address] [place], [place] [address] USAPlatelets (Bld) [#/Vol]303 10*3/aMIuyepf277-460Uja [facility] Physician GroupComment on above:Order Comment: Comment Every 6 hour while on tPAPerformed By: #### T4F, LIPID, TSH3, BMP #### [place] [address] USARBC (Bld) [#/Vol]3.39 10*6/uLLow3.90-5.60The [facility] Physician GroupComment on above:Order Comment: Comment Every 6 hour while on tPA Performed By: #### T4F, LIPID, TSH3, BMP #### [place] [address] USAWBC (Bld) [#/Vol]10.5 10*3/uLNormal4.1-10.5The [facility] Physician GroupComment on above:Order Comment: Comment Every 6 hour while on tPA Performed By: #### T4F, LIPID, TSH3, BMP #### [place] [address] USAWhite Blood Count10.5 [CFU]/mLNormal4.1-10.5The [facility] Physician GroupComment on above:Order Comment: Comment Every 6 hour while on tPA Performed By: #### T4F, LIPID, TSH3, BMP #### [place] [address] USABasophils (Bld) [#/Vol]0.1 10*3/uLNormal0.0-0.2The [facility] Physician GroupComment on above:Order Comment: Comment Every 6 hour while on tPAResult Comment: PERFORMED BY: [place] [address] PATHOLOGIST PUBLIC INFORMATION OFFICER LIZZIE CASTRO M.D.Performed By: #### FIB-C, CBC, PP #### [place] [address] USABasophils/100 WBC (Bld)0.6 %Normal.The [facility] Physician GroupComment on above:Order Comment: Comment Every 6 hour while on tPAPerformed By: #### FIB-C, CBC, PP #### [place] [address] USAEosinophils (Bld) [#/Vol]0.1 10*3/uLNormal0.0-0.45The [facility] Physician GroupComment on above:Order Comment: Comment Every 6 hour while on tPAPerformed By: #### FIB-C, CBC, PP #### [place] [address] USAEosinophils/100 WBC (Bld)1.7 %Normal.The [facility] Physician GroupComment on above:Order Comment: Comment Every 6 hour while on tPA Performed By: #### FIB-C, CBC, PP #### [place] [address] USAErythrocyte distribution width (RBC) [Ratio]14.7 %Normal 12.0-14.8The [facility] Physician GroupComment on above:Order Comment: Comment Every 6 hour while on tPAPerformed By: #### FIB-C, CBC, PP #### [place] [address] USAHematocrit (Bld) [Volume fraction]30.5 %Low38.8-50.0The [facility] Physician GroupComment on above:Order Comment: Comment Every 6 hour while on tPAPerformed By: #### FIB-C, CBC, PP #### [place] [address] USAHemoglobin (Bld) [Mass/Vol]10.3 g/dLLow13.0-17.0The [facility] Physician GroupComment on above:Order Comment: Comment Every 6 hour while on tPAPerformed By: #### FIB-C, CBC, PP #### [place] [address] USALymphocytes (Bld) [#/Vol]1.5 10*3/uLNormal1.00-4.8The [facility] Physician GroupComment on above:Order Comment: Comment Every 6 hour while on tPAPerformed By: #### FIB-C, CBC, PP #### [place] [address] USALymphocytes/100 WBC (Bld)17.1 %Normal.The [facility] Physician GroupComment on above:Order Comment: Comment Every 6 hour while on tPA Performed By: #### FIB-C, CBC, PP #### [address] [place] [address] USAMCH (RBC) [Entitic mass]29.9 paVqsqjd36.5-35.2The [facility] Physician GroupComment on above:Order Comment: Comment Every 6 hour while on tPAPerformed By: #### FIB-C, CBC, PP #### [facility] [address] (RBC) [Entitic vol]89.0 kTQcgpts42.5-101The [facility] Physician GroupComment on above:Order Comment: Comment Every 6 hour while on tPA Performed By: #### FIB-C, CBC, PP #### [place] [address] USAMean Corpuscular HGB Conc33.7 g/wCVctjpp32.5-35.6The [facility] Physician GroupComment on above:Order Comment: Comment Every 6 hour while on tPAPerformed By: #### FIB-C, CBC, PP #### [place] [address] USAMonocytes (Bld) [#/Vol]1.0 10*3/uLHigh0.0-0.8The [facility] Physician GroupComment on above:Order Comment: Comment Every 6 hour while on tPAPerformed By: #### FIB-C, CBC, PP #### [place] [address] USAMonocytes/100 WBC (Bld)11.0 %Normal.The [facility] Physician GroupComment on above:Order Comment: Comment Every 6 hour while on tPA Performed By: #### FIB-C, CBC, PP #### [place] [address] USANeutrophils (Bld) [#/Vol]6.1 10*3/uLNormal1.8-7.7The [facility] Physician GroupComment on above:Order Comment: Comment Every 6 hour while on tPAPerformed By: #### FIB-C, CBC, PP #### [place] [address] USANeutrophils/100 WBC (Bld)69.6 %Normal.The [facility] Physician GroupComment on above:Order Comment: Comment Every 6 hour while on tPA Performed By: #### FIB-C, CBC, PP #### [place] [address] USANRBC%0.0 /100{WBC}Normal0-0.5The [facility] Comment on above:Order Comment: Comment Every 6 hour while on tPAPerformed By: #### FIB-C, CBC, PP #### [place] [address] USAPlatelet mean volume (Bld) [Entitic vol]7.3 fLNormal 6.6-10.1The [facility] Physician GroupComment on above:Order Comment: Comment Every 6 hour while on tPAPerformed By: #### FIB-C, CBC, PP #### [place] [address] USAPlatelets (Bld) [#/Vol]350 10*3/yRDcusus549-427Nls [facility] Physician GroupComment on above:Order Comment: Comment Every 6 hour while on tPAPerformed By: #### FIB-C, CBC, PP #### [place] [address] USARBC (Bld) [#/Vol]3.43 10*6/uLLow3.90-5.60The [facility] Physician GroupComment on above:Order Comment: Comment Every 6 hour while on tPA Performed By: #### FIB-C, CBC, PP #### [place] [address] USAWBC (Bld) [#/Vol]8.8 10*3/uLNormal4.1-10.5The [facility] Physician GroupComment on above:Order Comment: Comment Every 6 hour while on tPA Performed By: #### FIB-C, CBC, PP #### [place] [address] USAWhite Blood Count8.8 [CFU]/mLNormal4.1-10.5The [facility] Physician GroupComment on above:Order Comment: Comment Every 6 hour while on tPA Performed By: #### FIB-C, CBC, PP #### [facility] [address] [place] [address] USACreatinineon 62-88-4617Tybrunvool [Mass/Vol]1.89 mg/dLHigh 0.70-1.30The [facility] Physician GroupComment on above:Performed By: #### T4F, LIPID, TSH3, BMP #### [facility] [address] [place] [address] USACreatinine Clr Calc Gfkalsqo65.81NoIredell Memorial Hospital Physician GroupComment on above:Result Comment: PERFORMED BY: [place] [address] PATHOLOGIST PUBLIC INFORMATION OFFICER LIZZIE CASTRO M.D.Performed By: #### T4F, LIPID, TSH3, BMP #### [place] [address] USAGFR/1.73 sq M.predicted MDRD (S/P/Bld) [Vol rate/Area] 37.718 mL/min/{1.73_m2}NormalThe [facility] Physician GroupComment on above: Performed By: #### T4F, LIPID, TSH3, BMP #### [place] [id number] USAECG 12 lead ECGon 12-99-2841NAH 12 lead ECGPEOPLES HOS[facility] Main [place] [address] [place] [address] Electrocardiograph Report Signed Patient: Evelio Irene MR#: [id number] : 1955 Acct:[id number] Age/Sex: 69 / M ADM Date: 03/03/25 Loc: Room: [address] [place] [address] Type: ADM IN Attending Dr: Troy Rizzo [...] variant Abnormal ECG Confirmed by Yady Coreas ([id number]) on 03/04/2025 4:59:15 PM Referred By: Electronically Signed By: Yady Coreas Transcribed By: MUS Signed By Yady Coreas MD 5 1659NoMercy Health Clermont HospitalFibrinogenon 27-27-8301Tjtwhpkfge886 mg/jDUbd463-694MebMarion General HospitalComment on above:Order Comment: Comment Every 6 hours while on tPAResult Comment: A hematocrit value greater than 55% may lead to inaccurate results in coagulation testing. Patients having hematocrit values >55% require a special collection tube for coagulation studies. Please contact the laboratory at [phone] for redraw instructions. PERFORMED BY: [place] [address] PATHOLOGIST PUBLIC INFORMATION OFFICER LIZZIE CASTRO M.D.Performed By: #### T4F, LIPID, TSH3, BMP #### [facility] [address] [place] [address] ZFESabhipkogl578 mg/lBDfsa994-551Xob [facility] Medical Center-LebanonComment on above:Order Comment: Comment Every 6 hours while on tPAResult Comment: A hematocrit value greater than 55% may lead to inaccurate results in coagulation testing. Patients having hematocrit values >55% require a special collection tube for coagulation studies. Please contact the laboratory at [phone] for redraw instructions. PERFORMED BY: [place] [address] PATHOLOGIST PUBLIC INFORMATION OFFICER LIZZIE CASTRO M.D.Performed By: #### FIB-C, CBC, PP #### [facility] [address] [place] [address] USAGlucose Poct Glucometerson 49-77-5416Wrmdijl [Mass/Vol]73 mg/dLNoMercy Health Clermont HospitalComment on above:Result Comment: Random Glucose Reference Range is dependent on time and content of last meal. Glucose of more than 200 mg/dL in a nonstressed, ambulatory subject supports the diagnosis of Diabetes Mellitus. PERFORMED BY: [address] [place] [address] PATHOLOGIST PUBLIC INFORMATION OFFICER LIZZIE CASTRO M.D.Performed By: #### GLULS #### Point of Care testing ,Glucose [Mass/Vol]65 mg/dLMartin Memorial Health Systems Physician GroupComment on above: Result Comment: Random Glucose Reference Range is dependent on time and content of last meal. Glucose of more than 200 mg/dL in a nonstressed, ambulatory subject supports the diagnosis of Diabetes Mellitus. PERFORMED BY: [address] [place] [address] PATHOLOGIST PUBLIC INFORMATION OFFICER LIZZIE CASTRO M.D.Performed By: #### GLULS #### Point of Care testing ,Type and Screenon 72-88-3741DMK and Rh group Nom (Bld)Blood group O Rh(D) positiveNoIredell Memorial Hospital Physician GroupComment on above:Result Comment: PERFORMED BY: [address] [place] [address] PATHOLOGIST PUBLIC INFORMATION OFFICER LIZZIE CASTRO M.D.Ambulatory Visit Summaryon 13-47-4304Baaiufuuav Visit SummaryAmbulatory Visit Summary EVELIO IRENE :1955 Visit Date:03/01/2025 [...] Care Team Attending Physician - EDY FOX, Leon Reilly Primary Care Physician - NINO HAMMONDS MD This Is Your Medications List doxycycline (doxycycline [...] Follow-Up Appointments Saturday 9:15 AM EST With: Leon SNOW MD Where: [facility] [address] [place] [address]- You Need to Schedule the Following Appointments Follow Up with Leon SNOW MD, URL When: Where: [address] [place] [address] Medications What How Much When Why Instructions New doxycycline (doxycycline hyclate 100 mg Cap) 1 Capsules By Mouth 2 times a day Ureteritis Duration: 10 Days Pickup at [facility]/pharmacy #[id number] Unchanged finasteride (finasteride 5 mg Tab) 1 [...] physician if questions or concerns Pharmacy Information [facility]/pharmacy #[id number]: [address], [place] [id number] [phone] Allergies No Known Allergies Problems Ongoing - [...] to develop this condi (more content not included)...Normal [facility] Office/Clinic Noteon 02-31-6681Wktafwg Office/Clinic NoteUrology Office/Clinic Note Chief Complaint F/u with CT [...] 100mg x [address] [facility]. -Will schedule cystoscopy. The risks and benefits [...] 5mg qd (believes primary care prescribed med). Notvoicing any urinary habit complaints. -Cont Finasteride and Terazsoin 6. Family history of prostate cancer (Z80.42: Family history of malignant neoplasm of prostate) Brother. 7. 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 [address] [place] [address] Additional Instructions: sched cysto Patient Education Urinary Tract Infection, Adult Cystoscopy I, Janice Hammonds, personally scribed for Dr. Snow on 03/01/2025 10:23:29. . Documentation recorded by the scribe, Janice Hammonds, accurately reflects the services(s) I performed and decisions made by me. Authenticated by Dr. Snow on 03/01/2025 10:26:49. Problem List/Past Medical History Ongoing Anticoagulated Bladder wall thickening BPH with urinary obstruction Elevated PSA Family history of prostate cancer Glucosuria H/O renal cell cancer Hesitancy Hyperlipidemia Protein in urine Pulmonary embolism Renal mass Type 2 diabetes mellitus Ureteritis Weak urinary (more content not included)...[facility] Comment on above:Result Comment: Electronically Signed By: Leon SNOW MD\.br\Date and Time Signed: 03/01/25 10:26 EDT\.br\Electronically Co-Signed By: Janice Hammonds\.br\Date and Time Co-Signed: 03/01/25 10:23 EDTALBUMIN, RANDOM URINE W/CREATININEon 80-34-6082KVIUFKD, URINE5.1 mg/dLNormalSee Note:Quest DiagnosticsComment on above:Result Comment: Reference Range: Reference Range Not establishedPerformed By: #### 6517, 7909 #### [facility] [address], [address] [place] [address] Silk Screen Etcher: Nathanael Muñoz MDALBUMIN/CREATININE RATIO, RANDOM GYMPC890 mg/g creatHigh<30Quest DiagnosticsComment on above:Result Comment: The ADA defines abnormalities in albumin excretion as follows: Albuminuria Category Result (mg/g creatinine) Normal to Mildly increased <30 Moderately increased 30-299 Severely increased > OR = 300 The ADA recommends that at least two of three specimens collected within a 3-6 month period be abnormal before considering a patient to be within a diagnostic category.Performed By: #### 6517, 7909 #### [facility] [place] [address] Silk Screen Etcher: Nathanael Jacobs (U) [Mass/Vol]36 mg/rKMelrpa47-146 Quest DiagnosticsComment on above:Performed By: #### 6517, 7909 #### [facility] [place] [address] Silk Screen Etcher: Nathanael Coon 35-52-3217TeqobiwlgJyjhwyrut From: Deanna Rosas To: EU - Recalls Snow; Sent: 06/26/2024 11:45:55 EST Show up: 10/06/2024 11:45:00 EDT Subject: ct scan Due Date/Time: 11/02/2024 11:45:00 EDT Reminder/Recall Pt needs Ct scan Abd/Pelvis sched for December 2024 Orders faxed to [facility] today and pt was notified. Will monitor [facility] has order and Pt office appointment is now 06/28/25. Pt had CT abd/pelvis Feb 2025.[facility] CampusURINALYSIS REFLEX on 01-02-6124Ediwhleslf (U)CLEARNormalCLEARQuest DiagnosticsComment on above: Performed By: #### 6517, 7909 #### [facility] [place] [address] Silk Screen Etcher: Nathanael Muñoz MDBilirubin Ql (U)NegativeNormalNEGATIVEQuest DiagnosticsComment on above:Performed By: #### 6517, 7909 #### [facility] [place] [address] Silk Screen Etcher: Nathanael SUTHERLANDolor (U)YELLOWNormalYELLOWQuest [facility] Comment on above:Performed By: #### 6517, 7909 #### [facility] [place] [address] Silk Screen Etcher: Nathanael Muñoz MDGlucose Ql (U)NegativeNormalNEGATIVEQuest DiagnosticsComment on above:Performed By: #### 6517, 7909 #### [facility] [place] [address] Silk Screen Etcher: Nathanael Muñoz MDKetones Ql (U)NegativeNormalNEGATIVEQuest DiagnosticsComment on above:Performed By: #### 6517, 7909 #### [facility] [place] [address] Silk Screen Etcher: Nathanael Muñoz MDLeukocyte esterase Test strip Ql (U)Negative NormalNEGATIVEQuest DiagnosticsComment on above:Performed By: #### 6517, 7909 #### [facility] of [address], [address] [place] [address] Silk Screen Etcher: Nathanael Muñoz MDNitrite Ql (U)NegativeNormalNEGATIVEQuest DiagnosticsComment on above:Performed By: #### 6517, 7909 #### [facility] of [place] [address] Silk Screen Etcher: Nathanael Muñoz MDOCCULT BLOODNegativeNormalNEGATIVEQuest DiagnosticsComment on above:Performed By: #### 6517, 7909 #### [facility] [place] [address] Silk Screen Etcher: Nathanael Muñoz MDpH (U)5.5 [pH]Normal5.0-8.0[facility] Comment on above:Performed By: #### 6517, 7909 #### [facility] [place] [address] Silk Screen Etcher: Nathanael BELCHERrotein Ql (U)NegativeNormalNEGATIVEQuest DiagnosticsComment on above:Performed By: #### 6517, 7909 #### [facility] [place] [address] Silk Screen Etcher: Nathanael Muñoz MDSpecific gravity (U) [Rel density]1.009Normal 1.001-1.035Quest DiagnosticsComment on above:Performed By: #### 6517, 7909 #### [facility] of [place] [address] Silk Screen Etcher: Nathanael Muñoz MDCT ABDOMEN PELVIS WO IV CONTRASTon 02-22-2025 CT ABDOMEN PELVIS WO IV CONTRASTEXAM: CT ABDOMEN PELVIS WO IV CONTRAST History: [...] present. There is right inguinal soft tissue edema.Increased density is identified within the right external [...] Colonic diverticulosis without diverticulitis. ELECTRONICALLY SIGNED BY: Maria Del Rosario LazcanomalNot AvailableCBC (INCLUDES DIFF/PLT)on 13-70-8048Rgxuddpds (Bld) [#/Vol]0.032 10*3/uLNormal0-200Quest DiagnosticsComment on above:Performed By: #### 99317, 0341 #### [facility] [address] [address] Silk Screen Etcher: Nathanael Muñoz MDBasophils/100 WBC (Bld)0.3 %NormalQuest DiagnosticsComment on above:Performed By: #### 54781, 5250 #### [facility] [address] [address] Silk Screen Etcher: Nathanael Muñoz MDEosinophils (Bld) [#/Vol]0.105 10*3/uLNormal 15-500Quest DiagnosticsComment on above:Performed By: #### 07018, 6399 #### [facility] of [address], [address] [place] [address] Silk Screen Etcher: Nathanael Muñoz MDEosinophils/100 WBC (Bld)1.0 %NormalQuest DiagnosticsComment on above:Performed By: #### 92326, 6399 #### [facility] of [address], [address] [place] [address] Silk Screen Etcher: Nathanael Muñoz MDErythrocyte distribution width (RBC) [Ratio] 14.2 %Lroqhi74.0-15.0Quest DiagnosticsComment on above:Performed By: #### 26857, 6399 #### [facility] of [address], [address] [place] [address] Silk Screen Etcher: Nathanael Muñoz MDHematocrit (Bld) [Volume fraction]35.6 %Low 38.5-50.0Quest DiagnosticsComment on above:Performed By: #### 66168, 6399 #### [facility] of [address], [address] [place] [address] Silk Screen Etcher: Nathanael Muñoz MDHemoglobin (Bld) [Mass/Vol]11.3 g/dLLow 13.2-17.1Quest DiagnosticsComment on above:Performed By: #### 66699, 6399 #### [facility] of [address], [address] [place] [address] Silk Screen Etcher: Nathanael Muñoz MDLymphocytes (Bld) [#/Vol]1.502 10*3/uLNormal 850-3900Quest DiagnosticsComment on above:Performed By: #### 36661, 6399 #### [facility] of [address], [address] [place] [address] Silk Screen Etcher: Nathanael Merati MDLymphocytes/100 WBC (Bld)14.3 %NormalQuest DiagnosticsComment on above:Performed By: #### 73604, 6399 #### [facility] [place] [address] Silk Screen Etcher: Nathanael WEBBCH (RBC) [Entitic mass]29.7 qoWeqslo64.0-33.0 Quest DiagnosticsComment on above:Performed By: #### 54161, 6399 #### [facility] of [place] [address] Silk Screen Etcher: Nathanael WEBBCHC (RBC) [Mass/Vol]31.7 g/dLLow32.0-36.0 Quest DiagnosticsComment on above:Result Comment: For adults, a slight decrease in the calculated MCHC value (in the range of 30 to 32 g/dL) is most likely not clinically significant; however, it should be interpreted with caution in correlation with other red cell parameters and the patient's clinical condition.Performed By: #### 57680, 6399 #### [facility] [place] [address] Silk Screen Etcher: Nathanael Muñoz MDMCV (RBC) [Entitic vol]93.7 wBWgkrbe64.0-100.0 [facility] DiagnosticsComment on above:Performed By: #### 80552, 6399 #### [facility] [place] [address] Silk Screen Etcher: Nathanael Muñoz MDMonocytes (Bld) [#/Vol]0.893 10*3/uLNormal 200-950Quest DiagnosticsComment on above:Performed By: #### 03226, 6399 #### [facility] [place] [address] Silk Screen Etcher: Nathanael Muñoz MDMonocytes/100 WBC (Bld)8.5 %NormalQuest DiagnosticsComment on above:Performed By: #### 19905, 6399 #### [facility] of [place] [address], [address] [place] [address] Silk Screen Etcher: Nathanael Vanceutrophils (Bld) [#/Vol]7.97 10*3/uLHigh 1500-7800Quest DiagnosticsComment on above:Performed By: #### 27843, 6399 #### [facility] of [place] [address], [address] [place] [address] Silk Screen Etcher: Nathanael Marteophils/100 WBC (Bld)75.9 %NormalQuest DiagnosticsComment on above:Performed By: #### 69344, 6399 #### [facility] of [place] [address] [address] , [address] [place] [address] Silk Screen Etcher: Nathanael BELCHERlateletty mean volume (Bld) [Entitic vol]10.6 fLNormal7.5-12.5Quest DiagnosticsComment on above:Performed By: #### 34088, 6399 #### [facility] of [place] [address], [address] [place] [address] Silk Screen Etcher: Nathanael Muñoz MDPlatelets (Bld) [#/Vol]139 10*3/aBFxv581-107 [facility] DiagnosticsComment on above:Performed By: #### 16901, 6399 #### [facility] of [place] [address], [address] [place] [address] Silk Screen Etcher: Nathanael Muñoz MDRBC (Bld) [#/Vol]3.80 10*6/uLLow4.20-5.80Quest DiagnosticsComment on above:Performed By: #### 98741, 6399 #### [facility] of [place] [address], [address] [place] [address] Silk Screen Etcher: Nathanael Muñoz MDWBC (Bld) [#/Vol]10.5 10*3/uLNormal3.8-10.8 Quest DiagnosticsComment on above:Performed By: #### 44518, 6399 #### [facility] of [place] [address], [address] [place] [address] Silk Screen Etcher: Nathanael Muñoz MDCOMPREHENSIVE METABOLIC PANELon 02-10-2025 Albumin [Mass/Vol]4.5 g/dLNormal3.6-5.1Quest DiagnosticsComment on above: Performed By: #### 83737, 6399 #### [facility] of [address], [address] [place] [address] Silk Screen Etcher: Nathanael Muñoz MDAlbumin/Globulin [Mass ratio]1.6 {ratio}Normal 1.0-2.5Quest DiagnosticsComment on above:Performed By: #### 36753, 6399 #### [facility] of [place] [address] Silk Screen Etcher: Nathanael Muñoz MDALP [Catalytic activity/Vol]51 U/UQvippo88-216 [facility] DiagnosticsComment on above:Performed By: #### 78748, 6399 #### [facility] of [place] [address] Silk Screen Etcher: Nathanael Muñoz MDALT [Catalytic activity/Vol]15 U/LNormal9-46 Quest DiagnosticsComment on above:Performed By: #### 65559, 6399 #### [facility] of [place] [address] Silk Screen Etcher: Nathanael Muñoz MDAST [Catalytic activity/Vol]18 U/DRgscic58-15 [facility] DiagnosticsComment on above:Performed By: #### 41131, 6399 #### [facility] of [place] [address] Silk Screen Etcher: Nathanael Muñoz MDBilirubin [Mass/Vol]0.6 mg/dLNormal0.2-1.2 Quest DiagnosticsComment on above:Performed By: #### 74115, 6399 #### [facility] of [place] [address] Silk Screen Etcher: Nathanael Muñoz MDCalcium [Mass/Vol]9.3 mg/dLNormal8.6-10.3Quest DiagnosticsComment on above:Performed By: #### 57322, 6399 #### [facility] of [place] [address] Silk Screen Etcher: Nathanael SUTHERLANDhloride [Moles/Vol]106 mmol/LNkhrlc48-365 [facility] DiagnosticsComment on above:Performed By: #### 91750, 6399 #### [facility] of [address], [address] [place] [address] Silk Screen Etcher: Nathanael Muñoz MDCO2 [Moles/Vol]25 mmol/HKdvqef58-71Ddxlh DiagnosticsComment on above:Performed By: #### 89091, 6399 #### [facility] of [place] [address] Silk Screen Etcher: Nathanael SUTHERLANDreatinine [Mass/Vol]2.17 mg/dLHigh0.70-1.28 Quest DiagnosticsComment on above:Performed By: #### 48977, 6399 #### [facility] [place] [address] Silk Screen Etcher: Nathanael Muñoz MDGFR/1.73 sq M.predicted among non-blacks MDRD (S/P/Bld) [Vol rate/Area]32 mL/min/{1.73_m2}Low> OR = 60Quest DiagnosticsComment on above:Performed By: #### 68210, 6399 #### [facility] of [place] [address] Silk Screen Etcher: Nathanael Muñoz MDGlobulin (S) [Mass/Vol]2.8 g/dLNormal1.9-3.7 [facility] DiagnosticsComment on above:Performed By: #### 04955, 6399 #### [facility] of [place] [address] Silk Screen Etcher: Nathanael Muñoz MDGlucose [Mass/Vol]166 mg/rVEfyw79-98Dzjjs DiagnosticsComment on above:Result Comment: Fasting reference interval For someone without known diabetes, a glucose value >125 mg/dL indicates that they may have diabetes and this should be confirmed with a follow-up test.Performed By: #### 73211, 6399 #### [facility] [place] [address] Silk Screen Etcher: Nathanael Muñoz MDPotassium [Moles/Vol]5.0 mmol/LNormal3.5-5.3 [facility] DiagnosticsComment on above:Performed By: #### 89228, 6399 #### [facility] [place] [address] Silk Screen Etcher: Nathanael Muñoz MDProtein [Mass/Vol]7.3 g/dLNormal6.1-8.1Quest DiagnosticsComment on above:Performed By: #### 49910, 6399 #### [facility] [place] [address] Silk Screen Etcher: Nathanael Muñoz MDSodium [Moles/Vol]138 mmol/SHvqavr275-891Tissa DiagnosticsComment on above:Performed By: #### 01625, 6399 #### [facility] [place] [address] Silk Screen Etcher: Nathanael Muñoz MDUrea nitrogen [Mass/Vol]40 mg/dLHigh7-25Quest DiagnosticsComment on above:Performed By: #### 18676, 6399 #### [facility] [place] [address] Silk Screen Etcher: Nathanael Muñoz MDUrea nitrogen/Creatinine [Mass ratio]18 mg/mg Normal6-22Quest DiagnosticsComment on above:Performed By: #### 80626, 6399 #### [facility] [place] [address] Silk Screen Etcher: Nathanael Muñoz MDXR LUMBAR SPINE 2 OR 3Von 65-75[place]16[place] [address] XRay Report Signed Patient: EVELIO IRENE MR#: [id number] : 1955 Acct:[id number] Age/Sex: 69 / M ADM Date: 02/09/25 Loc: RAD Attending Dr: NINO HAMMONDS Ordering Physician: NINO HAMMONDS Date of Service: 02/09/25 Procedure(s): XR lumbar spine 2-3V Accession Number(s): [id number] cc: NINO HAMMONDS [address] [place] [address] Patient Name: EVELIO IRENE MRN: [id number] date: 1955 Sex: M Assigned Patient Location: RAD Current Patient Location: RAD Accession/Order Number: [id number] Exam Date: 02/09/2025 15:08 Report Date: 02/09/2025 [...] SIGNIFICANT DISC HEIGHT LOSS. Impression dictated by: Alexys Dsouza Jr.OArnulfo 02/09/2025 3:09 PM Dictation Location: [place] [address] Electronically authenticated by: [id number] Y Date: 02/09/2025 15:09 Dictated By: Aamir Chu M.D. Signed By: 02/09/25 1511 DD/ 1509 TD/TT: Truck Dock Material Mover:TBHRadiology, Radiologist, MD - 02/09/2025 [place] [address] XRay Report Signed Patient: EVELIO IRENE MR#: [id number] : 1955 Acct:[id number] Age/Sex: 69 / M ADM Date: 02/09/25 Loc: RAD Attending Dr: NINO HAMMONDS Ordering Physician: NINO HAMMONDS Date of Service: 02/09/25 Procedure(s): XR lumbar spine 2-3V Accession Number(s): [id number] cc: NINO HAMMONDS [place] [id number] Patient Name: EVELIO IRENE MRN: [id number] date: 1955 Sex: M Assigned Patient Location: [facility] Current Patient Location: [facility] Accession/Order Number: [id number] Exam Date: 02/09/2025 15:08 Report Date: 02/09/2025 [...] Jr., D.O. 02/09/2025 3:09 PM Dictation Location: [place] [address] Electronically authenticated by: [id number] Y Date: 02/09/2025 15:09 Dictated By: Aamir Chu M.D. Signed By: 02/09/25 1511 DD/ 1509 TD/TT: Truck Dock Material Mover: [facility] HealthcareRadiology Study observation (narrative)[facility] HospitalXR LUMBAR SPINE 2 OR 3VOrdered By: Radiologist Radiology on 43-99-7273PSWFBarnes-Jewish Hospital Work Phone: HbA1c (Bld) [Mass fraction]on 21-19-0145Mmbkookquutxdr and review of laboratory resultsAbnormalWestern [facility] HealthcareLaboratory - Hematology and Cell countson 19-99-8095NgI3p (Bld) [Mass fraction]6.6 %[facility] HealthcareLaboratory - Hematology and Cell countson 07-57-7248LjY1r (Bld) [Mass fraction]7.2 %[facility] HospitalNo Panel Informationon 60-04-5777IURPBarnes-Jewish Hospital Ambulatory Visit Summaryon 74-34-9398Mumfxtxmor Visit SummaryAmbulatory Visit Summary EVELIO IRENE :1955 Visit Date:06/26/2024 Ambulatory Visit Instructions Your Diagnosis Elevated PSA H/O renal cell cancer BPH with urinary obstruction Family history of prostate cancer Your Care Team Attending Physician - Leon SNOW MD Primary Care Physician - NINO [...] Follow-Up Appointments Saturday 9:15 AM EST With: Leon SNOW MD Where: [facility] [address] [place] [address]- You Need to Schedule the Following Appointments Follow Up with Leon SNOW MD, URL When: Where: [facility] [place] [address]- Medications What How Much When Instructions Unchanged [...] greater than the ridge (more content not included)...[facility] CampusUrology Office/Clinic Noteon 65-20-0007Izrziiw Office/Clinic Note Urology Office/Clinic Note Chief Complaint [...] Follow-up With When Contact Information EDY FOX, Leon Reilly, URL [address] [place] [address]- Additional Instructions: 1 year w/ PSA Patient Education Prostate Cancer Screening I, Frida Jameson, personally scribed for Dr. Snow on 06/26/2024 [...] Use:., 06/26/2024 Family Histo (more content not included)...[facility] Comment on above:Result Comment: Electronically Signed By: Leon SNOW MD\.br\Date and Time Signed: 06/26/24 12:03 EST\.br\Electronically Co-Signed By: Frida Jameson.br\Date and Time Co-Signed: 06/26/2412:00 EST\.br\Electronically Co-Signed By: Frida Jameson.br\Date and Time Co- Signed: 06/26/24 12:01 ESTLaboratory - Hematology and Cell countson 06-25-2024 HbA1c (Bld) [Mass fraction]7.1 %[facility] HealthcareNo Panel Informationon 06-25-2024 [facility] HealthcareCT ABD/PELVIS WO CONon 35-44-2692MI ABD/PELVIS WO CONEXAMINATION: CT ABD/PELVIS WO CON, 12/12/2021 12:56 PM [...] Electronically authenticated by: TUAN VILLAFANA Date: 2021-12-13 07:30[facility]XR [facility] 2 Von 89-75-1570SB CHEST 2 VEXAM: XR CHEST 2 V HISTORY: Raised prostate [...] Electronically authenticated by: AIDAN HDEZ Date: 2021-12-12 13:39[facility] HospitalComprehensive Metabolic Panelon 90-86-4076Offpcjm [Mass/Vol]4.7 g/dLNormal3.6-5.1[place] [facility] SpecialistComment on above:Performed By: #### CMP, LIPD #### [facility] [address] [place], [place] [id number]/Globulin [Mass ratio]2.0 {ratio}Normal1.0-2.5NoUniversity Hospitals Lake [facility] Center SpecialistComment on above:Performed By: #### CMP, LIPD #### [facility] [address] [place], [place] [id number] [Catalytic activity/Vol]82 U/YGnjhax50-179Wdwsqcpa [place] Medical SpecialistComment on above:Performed By: #### CMP, LIPD #### [facility] [address] [place], [place] [id number] [Catalytic activity/Vol]21 U/LNormal9-46NortOhioHealth SpecialistComment on above:Result Comment: 06/07/2021 Female reference range changed.Performed By: #### CMP, LIPD #### [facility] [address] [place], [place] [address]Ahvdo gap [Moles/Vol]17 mmol/SVtezys55-74Cuvmieio [place] [facility] SpecialistComment on above:Result Comment: Effective 07/13/2019 reference range changed.Performed By: #### CMP, LIPD #### [facility] [address] [place], [place] [id number] [Catalytic activity/Vol]25 U/FAgphuc44-29Xxjrdpjc [place] [facility] SpecialistComment on above:Performed By: #### CMP, LIPD #### [facility] [address] [place], [place] [id number] [Mass/Vol]0.34 mg/dLNormal0.30-1.20NortOhioHealth SpecialistComment on above:Performed By: #### CMP, LIPD #### [facility] [address] [place], [place] [address]PXH/CREA14 RatioNormal6-22NoUniversity Hospitals Lake West [facility] Center Specialist Comment on above:Performed By: #### CMP, LIPD #### [facility] [address] [place], [place] [id number] [Mass/Vol]9.5 mg/dLNormal8.6-10.2[facility] [place] [facility] SpecialistComment on above:Performed By: #### CMP, LIPD #### [facility] [address] [place], [place] [id number] [Moles/Vol]104 mmol/LTndauf58-249Ppjcfhww [place] [facility] SpecialistComment on above:Performed By: #### CMP, LIPD #### [facility] [address] [place], [place] [id number] [Moles/Vol]24 mmol/JTvwtlv50-74Jsmimdsb [place] Medical SpecialistComment on above:Performed By: #### CMP, LIPD #### [facility] [address] [place], [place] [id number] [Mass/Vol]2.0 mg/dLHigh0.7-1.4Nortbanner ironwood medical centern [place] Medical SpecialistComment on above:Performed By: #### CMP, LIPD #### [facility] [address] [place], [place] [id number] mL/min/1.52i9Izg>60NortAvita Health System Director Camp Comment on above:Performed By: #### CMP, LIPD #### [facility] [address] [place], [place] [id number] mL/min/1.48l1Zjm>60NoPublic Health Service Hospital Director Camp Comment on above:Performed By: #### CMP, LIPD #### [facility] [address] [place], [place] [id number] (S) [Mass/Vol]2.3 g/dLNormal1.9-3.7Nortbanner ironwood medical centern [place] Medical SpecialistComment on above:Performed By: #### CMP, LIPD #### [facility] [address] [place], [place] [address]Evaaaze [Mass/Vol]160 mg/xWQoef17-38Rfndxtke [place] Medical SpecialistComment on above:Result Comment: For FASTING Glucose --- ADA reference ranges: Normal 65-99 mg/dl Prediabetes 100-125 Diabetes >/= 126Performed By: #### CMP, LIPD #### [facility] [address] [place], [place] [id number] [Moles/Vol]4.9 mmol/LNormal3.5-5.5NoUniversity Hospitals Lake West [facility] Center SpecialistComment on above:Performed By: #### CMP, LIPD #### [facility] [address] [place], [place] [id number] [Mass/Vol]7.0 g/dLNormal6.1-8.1[facility] SpecialistComment on above:Performed By: #### CMP, LIPD #### [facility] [address] [place], [place] [id number] [Moles/Vol]140 mmol/CHhrthc337-268Qeefyogy [place] [facility] SpecialistComment on above:Performed By: #### CMP, LIPD #### [facility] [address] [place], [place] [address]Xqpv nitrogen [Mass/Vol]28 mg/dLHigh7-25NoUniversity Hospitals [facility] SpecialistComment on above:Performed By: #### CMP, LIPD #### [facility] [address] [place], [place] [address]Hqwml Panelon 49-57-7503Jilthrrkimd [Mass/Vol]151 mg/dLNormal 125-200NoUniversity Hospitals Lake [facility] Center SpecialistComment on above:Result Comment: Low risk < 200mg/dL Borderline risk 201-239 mg/dl High risk > or equal to 240Performed By: #### CMP, LIPD #### [facility] [address] [place], [place] [address]Ybhxxjxeqje in HDL [Mass/Vol]36 mg/dLLow>40NoUniversity Hospitals Lake West [facility] Center SpecialistComment on above:Result Comment: High Cardiovascular Risk HDL <40 mg/dL Low Cardiovascular Risk HDL > or equal to 60 mg/dlPerformed By: #### CMP, LIPD #### [facility] [address] [place], [place] [address]Kgemwoowdga in LDL [Mass/Vol]87 mg/dLNormalNoUniversity Hospitals [facility] SpecialistComment on above:Result Comment: LDL ATP III CLASSIFICATION LDL less than 100 mg/dl Optimal LDL 100-129 mg/dl Near or above optimal LDL 130-159 Borderline high LDL 160-189 High LDL greater than 189 mg/dl Very HighPerformed By: #### CMP, LIPD #### [facility] [address] [place], [place] [id number] in VLDL [Mass/Vol]28 mg/dLNormalNorthern Metropolitan Hospital SpecialistComment on above:Performed By: #### CMP, LIPD #### [facility] [address] [place], [place] [id number].total/Cholesterol in HDL [Mass ratio]4 {ratio} NormalNorthern Metropolitan Hospital SpecialistComment on above:Performed By: #### CMP, LIPD #### [facility] [address] [place], [place] [id number] [Mass/Vol]138 mg/wZSzixvu66-187Dhhuveak [facility]. Sinai HospitalComment on above:Result Comment: TRIG ATPIII CLASSIFICATIONS TRIG less than 150 mg/dl Normal TRIG 150-199 mg/dl Borderline High TRIG 200-500 mg/dl High TRIG greather than 500 mg/dl Very HighPerformed By: #### CMP, LIPD #### [facility] [address], [place] [id number] Vital Signs Date TimeVital SignValuePerforming LdvcicnwlOpzmeotp27-31-8647 14:48-0500Body pchjlo230.4 cmNino Hammonds MD Work Phone: [facility] HospitalZvjobjwwor39-53-5442 14:48-0500Body mass index (BMI) [Ratio]31.8 kg/z1AnqnwdNino Hammonds MD Work Phone: [phone] HospitalTklsvcwqvd63-16-2491 14:48-0500Body .32 kgNino Hammonds MD Work Phone: [facility] HospitalPvrnqobawi18-83-7827 14:48-0500Diastolic blood mm[Hg]Nino Hammonds MD Work Phone: [phone] HospitalUwojxxnpdt76-63-7438 14:48-0500Heart rate54 /min Nino Hammonds MD Work Phone: NOWestern [facility] Mental Health CenterHtooklorfy07-04-4506 14:48-0500Respiratory rate16 /Suzie Hammonds MD Work Phone: [facility] HospitalNhtnyrjaff55-42-7815 14:48-7791EgA4% (BldA) [Mass fraction]97 %Nino Hammonds MD Work Phone: [facility] HospitalTrzvaozuiq85-80-1230 14:48-0500Systolic blood oelkjtko958 mm[Hg]Nino Hammonds MD Work Phone: [facility] HospitalTlycuesrec74-52-0478 10:22-0400Diastolic blood vrfersde28 mm[Hg][address]10-08-2025 10:22-0400 Heart rate64 /minEly [address] [place], [place] 9258310-08-2025 10:22-0400 Systolic blood ipldgsqa592 mm[Hg][address] 04-07-2025 09:35-0400Body .4 cmShlomo Oviedo CENSUS CLERK-RESEARCH TEST ENGINE EVALUATOR Work Phone: [phone])[address]10-01-2025 09:35-0400 Body mass index (BMI) [Ratio]32.19 kg/p9RihgwShlomo Oviedo CENSUS CLERK-RESEARCH TEST ENGINE EVALUATOR Work Phone: 1(483)[address]10-01-2025 09:35-0400 Body .68 kgShlomo Oviedo CENSUS CLERK-RESEARCH TEST ENGINE EVALUATOR Work Phone: 1(339)474[address]10-01-2025 09:35-0400 Diastolic blood euhfgjlr64 mm[Hg]Shlomo Oviedo CENSUS CLERK-RESEARCH TEST ENGINE EVALUATOR Work Phone: 1(837)126-[address] [place], [place] 5032710-01-2025 09:35-0400 Heart rate64 /Camila Oviedo CENSUS CLERK-RESEARCH TEST ENGINE EVALUATOR Work Phone: 1(210)448-[address] [place], [place] 5032710-01-2025 09:35-0400 Systolic blood zirjpthh873 mm[Hg]Shlomo Oviedo CENSUS CLERK-RESEARCH TEST ENGINE EVALUATOR Work Phone: 1(611)354[address]09-22-2025 10:31-0400 Body acskrd260.42 cmNino Hammonds II Work Phone: [facility]09-22-2025 10:31-0400 Body mass index (BMI) [Ratio]31.6 kg/x9Cjqwhncleo Hammonds II Work Phone: 1(960)802-[address] [place], [place] 9843309-22-2025 10:31-0400 Body zhaufdlgwad72 [degF]Nino Hammonds II Work Phone: 1(200)[address]09-22-2025 10:31-0400 Body .86 kgDacleo Hammonds II Work Phone: 1(380)005-[address] [place], [place] 9843309-22-2025 10:31-0400 Diastolic blood qywnmuyz13 mm[Hg]Nino Hammonds II Work Phone: 1(435)51940 [address]09-22-2025 10:31-0400 Heart rate80 /Suzie Hammonds II Work Phone: 1(104)37840 [address]09-22-2025 10:31-0400 Respiratory rate18 /Suzie Hammonds II Work Phone: 1(994)426-[address] [place], [place] 9843309-22-2025 10:31-0400 SaO2% (BldA) [Mass fraction]96 %Nino Hammonds II Work Phone: 1(064)863-[address] [place], [place] 9843309-22-2025 10:31-0400 Systolic blood kyfcjsxg804 mm[Hg]Nino Hammonds II Work Phone: 1(458)034[address]09-19-2025 12:54-0400 Body uwubxt731.4 cmDena Caballero MD Work Phone: [facility]09-19-2025 12:54-0400 Body mass index (BMI) [Ratio]31.53 kg/q5ToeszDena Caballero MD Work Phone: [facility]09-19-2025 12:54-0400 Body .41 kgDena Caballero MD Work Phone: [facility]09-19-2025 12:54-0400 Diastolic blood ozsskqnb30 mm[Hg]Dena Caballero MD Work Phone: [facility]09-19-2025 12:54-0400 Heart rate93 /minDena Caballero MD Work Phone: [facility]09-19-2025 12:54-0400 SaO2% (BldA) [Mass fraction]98 %Dena Caballero MD Work Phone: [facility]09-19-2025 12:54-0400 Systolic blood buvpqzox221 mm[Hg]Dena Caballero MD Work Phone: [phone]08-29-2025 11:33-0400 Body wrhsgohmbjd40.2 [degF]Nino Hammonds II Work Phone: 1(110)78340 [address]08-29-2025 11:33-0400 Diastolic blood wlaoxcex10 mm[Hg]Nino Hammonds II Work Phone: 1(502)037[address]08-29-2025 11:33-0400 Heart rate66 /minDsivakumarel Hammonds II Work Phone: 1(911)58740 [address]08-29-2025 11:33-0400 Respiratory rate15 /minDaniel Hammonds II Work Phone: 1(154)76340 [address]08-29-2025 11:33-0400 SaO2% (BldA) [Mass fraction]98 %Nino Hammonds II Work Phone: 1(291)55040 [address]08-29-2025 11:33-0400 Systolic blood dccdobyj428 mm[Hg]Nino Hammonds II Work Phone: 1(063)118-[address] [place], [place] 9843308-29-2025 06:00-0400 Body zeevei711.1 kgDaniel Hammonds II Work Phone: 1(086)[address] [place], [place] 6010308-27-2025 14:55-0400 Body lbezap417.88 cmDaniel Hammonds II Work Phone: 1(206)80240 [address]08-27-2025 13:45-0400 Inhaled oxygen flow rate3 L/minDaniel Hammonds II Work Phone: 1(250)60840 [address]08-26-2025 10:12-0400 Body adfqohjgkyd46.2 [degF]Nino Hammonds II Work Phone: 1(358)180-[address] [place], [place] 9843308-26-2025 10:12-0400 Diastolic blood dghhacfd60 mm[Hg]Nino Hammonds II Work Phone: 1(581)001-[address] [place], [place] 9843308-26-2025 10:12-0400 Heart rate85 /Suzie Hammonds II Work Phone: 1(934)649-[address] [place], [place] 9843308-26-2025 10:12-0400 Respiratory rate16 /Suzie Hammonds II Work Phone: 1(675)566-[address] [place], [place] 9843308-26-2025 10:12-0400 SaO2% (BldA) [Mass fraction]98 %Nino Hammonds II Work Phone: 1(035)991-[address] [place], [place] 9843308-26-2025 10:12-0400 Systolic blood lldwsajf828 mm[Hg]Nino Hammonds II Work Phone: 1(550)039-[address] [place], [place] 9843308-20-2025 09:36-0400 Body nitobf060.4 cmPipeen Hemmer PA Work Phone: [facility] HospitalUwppbpvlhh53-92-9592 09:36-0400Body mass index (BMI) [Ratio]31.98 kg/x9Kffft Hemmer PA Work Phone: [facility] HospitalJraowavhtn50-55-8537 09:36-0400Body ydhbww545.95 kgPipeen Hemmer PA Work Phone: [facility] HospitalCbxlwahlwx85-35-6584 09:36-0400Diastolic blood ilfbxkax14 mm[Hg]Margoth Hemmer PA Work Phone: [facility] HospitalRvndswiyjt08-31-8582 09:36-0400Heart rate93 /min Margoth Hemmer PA Work Phone: [facility] HospitalZimtwzwvdc27-82-9182 09:36-0400Respiratory rate16 /minPipeen Hemmer PA Work Phone: [facility] HospitalJlxlwjbovv39-75-9198 09:36-6480PyM9% (BldA) [Mass fraction]97 %Margoth Hemmer PA Work Phone: [facility] CenterKwzujistkm05-55-7066 09:36-0400Systolic blood vpuchefw718 mm[Hg]Margoth BELL Work Phone: [facility] CenterQivvzzxeqx72-06-3929 16:13-0400Body ezmaum004.4 cmNino Hammonds MD Work Phone: [facility] CenterJtauafhbgg33-35-7822 16:13-0400Body mass index (BMI) [Ratio]33.64 kg/f1MwijlqNino Hammonds MD Work Phone: [facility] CenterIeswvqybdc18-37-1722 16:13-0400Body .67 kgNino Hammonds MD Work Phone: [facility] HospitalZbiulyqkel52-03-8517 16:13-0400Diastolic blood kponouac29 mm[Hg]Nino Hammonds MD Work Phone: [facility] HospitalRfmohfpqev94-97-3454 16:13-0400Heart rate88 /min Nino Hammonds MD Work Phone: [facility] HospitalQszeonnkty27-40-3416 16:13-0872KcD2% (BldA) [Mass fraction]98 %Nino Hammonds MD Work Phone: [facility] CenterSuuqwyhrnz05-65-1367 16:13-0400Systolic blood gphkoomj639 mm[Hg]Nino Hammonds MD Work Phone: [facility] CenterHiajbkpcsv72-60-5835 16:03-0400Body fxhxje025.4 cmNino Hammonds MD Work Phone: [facility] CenterBwfgawaqam41-54-0980 16:03-0400Body mass index (BMI) [Ratio]32.72 kg/g1DqtyugNino Hammonds MD Work Phone: [facility] CenterAlcinonjnh16-35-1093 16:03-0400Body qsrybx101.49 kgNino Hammonds MD Work Phone: [facility] CenterKufpaxjbmq39-62-2603 16:03-0400Diastolic blood mrdgomvn12 mm[Hg]Nino Hammonds MD Work Phone: [facility] HospitalLwuueeqmch84-67-9271 16:03-0400Heart bits357 /min Nino Hammonds MD Work Phone: [facility] HospitalPdnjfyqklm20-43-3697 16:03-0400Respiratory rate17 /minDsariah Hammonds MD Work Phone: [facility] HospitalGijxonjlef31-85-6879 16:03-4951WtS4% (BldA) [Mass fraction]87 %Nino Hammonds MD Work Phone: [facility] HospitalWgazkxkcnm96-35-2380 16:03-0400Systolic blood iauodxdn599 mm[Hg]Nino Hammonds MD Work Phone: [facility] HospitalQefdewpduv20-00-8948 10:48-0400Body .4 cmNino Hammonds MD Work Phone: [facility] HospitalZlhjcjtwkz11-69-5853 10:48-0400Body mass index (BMI) [Ratio]30.61 kg/d3DrhbmsNino Hammonds MD Work Phone: 1(573)993-[address] [place], [place] [address]Brbagnwquv67-85-3593 10:48-0400Body neyhel784.23 kgNino Hammonds MD Work Phone: [facility] HospitalBipsumaqph33-88-7006 10:48-0400Diastolic blood hjjfiqpj97 mm[Hg]Nino Hammonds MD Work Phone: [facility] HospitalJmxtasjhtz16-57-8102 10:48-0400Heart rate64 /min Nino Hammonds MD Work Phone: [facility] HospitalPfwkqlnjgu80-31-5081 10:48-7851FkI6% (BldA) [Mass fraction]97 %Nino Hammonds MD Work Phone: [facility] CenterLwrdsonveo70-09-6936 10:48-0400Systolic blood mm[Hg]Nino Hammonds MD Work Phone: [facility] CenterVhxnscbkmg26-13-1079 08:56-0400Body .4 cmNino Hammonds MD Work Phone: [facility] CenterJuwutwfnmy38-16-5829 08:56-0400Body mass index (BMI) [Ratio]32.19 kg/y7JxbxdaNino Hammonds MD Work Phone: [facility] CenterRubfvjskkj68-14-2721 08:56-0400Body vygrth659.68 kgDacleo Hammonds MD Work Phone: [facility] CenterTyrvexsgam35-68-8874 08:56-0400Diastolic blood ftanwehe87 mm[Hg]Nino Hammonds MD Work Phone: [facility] CenterHszjscwhtd92-02-9826 08:56-0400Heart rate66 /min Nino Hammonds MD Work Phone: [facility] HospitalKiisqmzttg41-43-8278 08:56-0232FgW7% (BldA) [Mass fraction]98 %Nino Hammonds MD Work Phone: [facility] CenterElzprtavuq66-55-6592 08:56-0400Systolic blood xsjxskii967 mm[Hg]Nino Hammonds MD Work Phone: [facility] HospitalYbiuoyyhvq77-03-3547 10:59-0500Diastolic blood zebgsgqo46 mm[Hg]Leon SNOW [facility]12-20-2024 10:59-0500Heart rate78 /minLeon SNOW [facility]12-20-2024 10:59-0500Mean blood fjinyign716 mm[Hg]Leon SNOW [facility]12-20-2024 10:59-0500Systolic blood mm[Hg]Leon SNOW [facility]12-20-2024 10:45-0500Blood Pressure LocationPaclaudia SNOW [facility]12-20-2024 10:45-0500Body alxnhyypipp81.6 [degF]Leon SNOW [facility] [address]20-2024 10:45-0500Diastolic blood lyxyxmhu27 mm[Hg]Leonakbar SNOW [facility]12-20-2024 10:45-0500Heart rate76 /minPatrick EDY [facility]12-20-2024 10:45-0500Respiratory rate18 /minPatrick EDY [facility]12-20-2024 10:45-0500Systolic blood lyqsvtkv835 mm[Hg]Leon SNOW [facility]12-19-2024 09:57-0500Body iogtgx072.4 cmNino Hammonds MD Work Phone: [facility] HospitalVgexezneej89-79-5836 09:57-0500Body mass index (BMI) [Ratio]32.32 kg/e1PaqvtgNino Hammonds MD Work Phone: [facility] HospitalYjpzyoyeuy36-78-0297 09:57-0500Body .13 kgNino Hammonds MD Work Phone: [facility] HospitalUejbaxvkwr80-22-1061 09:57-0500Diastolic blood lutdsqfy17 mm[Hg]Nino Hammonds MD Work Phone: [facility] HospitalLimujrrmej20-06-0782 09:57-0500Heart rate74 /min Nino Hammonds MD Work Phone: [facility] HospitalYcosdvbgpp91-45-0698 09:57-9554WlY0% (BldA) [Mass fraction]96 %Nino Hammonds MD Work Phone: [facility] HospitalOdvctkeike74-19-6178 09:57-0500Systolic blood mm[Hg]Nino Hammonds MD Work Phone: [facility] HospitalCfcrlwzeua44-75-1371 09:29-0400Blood Pressure LocationPatrick SNOW [facility] 07-25-2022 09:29-0400Diastolic blood rwgzrnut199 mm[Hg] Leon SNOW Exmgqccnf [facility] 07-25-2022 09:29-0400Heart rate81 /minPatrick A2B [facility] 07-25-2022 09:29-0400Respiratory rate16 /minPatrick A2B [facility] 07-25-2022 09:29-0400Systolic blood jbuajecc025 mm[Hg] Leon SNOW [facility] Encounters Encounter DateEncounter TypeCare ProviderFacilityStart: 05-10-2025 End: 10-95-7456Bzpjoa outpatient visit 25 minutesNino Hammonds MD Work Phone: [facility] MedinceComment on above:Type 2 diabetes mellitus with diabetic neuropathy, with long-term current use of insulin ([facility]) (Primary Dx); Hypercoagulable state ([facility]); Factor V Leiden mutation ([facility]); Acute deep vein thrombosis (DVT) of distal vein of right lower extremity ([facility]) Start: 05-10-2025 End: 77-34-2782xpnefqxylwPBHINR B BERRYNot AvailableStart: 05-10-2025 End: 42-44-7338Cizpdgdoreen Hammonds MD Work Phone: [facility] [place] MedinceStart: 05-10-2025 End: 94-66-7154Efctrzdoreen Hammonds MD Work Phone: [facility] [place] MedinceStart: 04-14-2025 End: 69-36-9596Smneogakbg hospital visit by López [facility] Stress Room 1 [facility] HospitalComment on above:Atypical atrial flutterStart: 04-14-2025 End: 88-48-9327mdxuelckdpQVFEN [facility] Start: 04-13-2025 End: 52-90-6466vqrsljcndnPRDXGA VENNUREDDYFacility:[facility] Start: 04-09-2025 End: 35-68-6209Sdzzgzh encounter procedureShlomo Oviedo APRN-CT [facility] [place] Work Phone: Start: 04-09-2025 End: 04-94-0258cnivopyisnCnlosr Fluential II Work Phone: [facility] Work Phone: Start: 04-07-2025 End: 47-06-0778Qmoaos outpatient visit 25 minutesShlomo Oviedo APRN-RESEARCH TEST ENGINE EVALUATOR Work Phone: uh [facility]Com[facility] on above:Atypical atrial flutter (Primary Dx); FPC (current) use of anticoagulants; Factor V deficiency (Multi); Chronic deep vein thrombosis (DVT) of proximal vein of both lower extremities (Multi); Essential (primary) hypertension; Mixed hyperlipidemia; Type 2 diabetes mellitus without complication, with long-term current use of insulin (Multi); BMI 32.0-32.9,adultStart: 04-07-2025 End: 12-42-9413yyguoijjktDLZVL [facility] AmbulatoryStart: 03-29-2025 End: 40-13-6411tuteevknhlFctzxn Fluential II Work Phone: [facility] Work Phone: Start: 03-29-2025 End: 16-16-7541Scajadu encounter procedureAmalia Ca APRN-[facility]ascular Surg Work Phone: Start: 03-26-2025 End: 26-36-0549Wnnmzg outpatient new 60 minutesDena Caballero MD Work Phone: [facility] Medical Office BuildingComment on above: VTE (venous thromboembolism) (Primary Dx); Acute bilateral deep vein thrombosis (DVT) of iliac veins of lower extremities Start: 03-26-2025 End: 61-10-4768yeeiiojmbpWPNVN C [facility] AmbulatoryStart: 03-25-2025 End: 13-08-5836jgraieqfdbDbkjvzd R WATERSFacility:EU [place]Start: 03-25-2025 End: 73-78-0579Smyzwcm encounter procedureLeon SNOW [facility] Start: 03-19-2025 End: 24-20-4914Ulhwdi Lynette Hammonds MD Work Phone: [facility] MedinceStart: 03-19-2025 End: 74-53-5086Kdyiendoreen Hammonds MD Work Phone: [facility] CenternceStart: 03-19-2025 End: 92-44-4230strbcrrgmyTFPWQS B [facility]YOz[facility] AvailableStart: 03-16-2025 End: 73-76-6754lgdulzohovPjjdetx R WATERSFacility:EU [place]Start: 03-16-2025 End: 77-81-6563Qmgjuua encounter procedureLeon SNOW [facility] Start: 03-03-2025 End: 71-75-3885Uiycoeipll and management of inpatientTroy Rizzo MD-[address] [place] [address] Work Phone: Start: 84-40-5485Zqf-patient / Non-visitTroy Rizzo MD-[facility] V[facility] Surg Work Phone: Start: 03-02-2025 End: 17-67-2771Hpwfh Ena Duong MD Work Phone: Hematology/OncologyStart: 03-02-2025 End: 14-93-3689fewgdciwbqZeqdyz Berry II Work Phone: [facility] Work Phone: Start: 03-02-2025 End: 83-24-4288Dmfrdqq encounter procedureTroy Rizzo MD-[facility] Vascular Surg Work Phone: Start: 03-01-2025 End: 31-49-6521dezdqkkvioHopeswe R WATERSFacility:EU [place]vueStart: 03-01-2025 End: 98-80-2117Wauwien encounter procedureLeon SNOW [facility] Jamee start: 02-24-2025 End: 34-26-4637Brjsig Cheri BELL Work Phone: [facility] [facility] MedinceStart: 02-24-2025 End: 09-22-9922Erugho flowsReji BELL Work Phone: [facility] [place] [facility] MedinceStart: 02-24-2025 End: 21-34-8150Usdjbv outpatient visit 25 minutesMargoth BELL Work Phone: [facility] [place] [facility] MedinceComment on above:Acute deep vein thrombosis (DVT) of iliac vein of right lower extremity (HCC) (Primary Dx); Bladder wall thickening; History of DVT (deep vein thrombosis); Localized edemaStart: 02-24-2025 End: 14-66-0323avpvybhgcdBWOIN M HEMMERNot AvailableStart: 02-23-2025 End: 94-63-9917Oenqqrfgb encounterMargoth BELL Work Phone: [facility] [place] [facility] MedinceStart: 02-22-2025 End: 77-96-0880bvgaivvuirZEQLTZ B BERRYNot AvailableStart: 02-15-2025 End: 00-17-6213Vepmmu outpatient visit 25 minutesNino Hammonds MD Work Phone: [facility] [place] MedinceComment on above:Acute bilateral low back pain without sciatica (Primary Dx); History of primary malignant neoplasm of kidney; Localized edema; Chronic kidney disease, stage 3b ([facility]-HCC)Start: 02-15-2025 End: 57-10-9284hipstwnoffHLIMCP B BERRYNot AvailableStart: 02-15-2025 End: 77-07-5744Esoese flowsBubba Hammonds MD Work Phone: [facility] [place] MedinceStart: 02-15-2025 End: 85-07-3382Kadphb Lynette Hammonds MD Work Phone: [facility] [place] MedinceStart: 02-09-2025 End: 73-17-2161Jdapxfkep Result EncounterNino Hammonds MD Work Phone: [facility] External Department UnsolicitedStart: 02-09-2025 End: 45-68-4501Cdzuhsnjt Result EncounterNino Hammonds MD Work Phone: [facility] External Department UnsolicitedStart: 02-08-2025 End: 57-98-9589Vlikrt outpatient visit 25 minutesNino Hammonds MD Work Phone: [facility] [place] MedinceComment on above:Acute bilateral low back pain without sciatica (Primary Dx); Type 2 diabetes mellitus with chronic kidney disease, with long-term current use of insulin, unspecified CKD stage ([facility]); Localized edema; History of primary malignant neoplasm of kidneyStart: 02-08-2025 End: 48-67-7703aauzrocufhOECWJV B BERRYNot AvailableStart: 02-08-2025 End: 10-89-7138Wzvsvv Lynette Hammonds MD Work Phone: [facility] [place] MedinceStart: 02-08-2025 End: 90-79-1226Xinruh Lynette Hammonds MD Work Phone: [facility] [place] MedinceStart: 01-11-2025 End: 96-43-3526Zrjkxz Lynette Hammonds MD Work Phone: [facility] CI FMStart: 01-11-2025 End: 75-83-0565Xbsznn Lynette Hammonds MD Work Phone: [facility] CI FMStart: 01-11-2025 End: 66-10-3611Jwtrdo outpatient visit 10 minutesNino Hammonds MD Work Phone: [facility] CI FMComment on above:Acute bronchiolitis due to unspecified organism (Primary Dx)Start: 01-11-2025 End: 94-94-8058xprugxizodBCOFMI B BERRYNot AvailableStart: 10-26-2024 End: 56-83-7010Jsxtpl Lynette Hammonds MD Work Phone: [facility] CI FMStart: 10-26-2024 End: 16-10-4836Kdinbh Lynette Hammonds MD Work Phone: [facility] CI FMStart: 10-26-2024 End: 50-82-3494Vnrtl of hemosiderin, Karuna Hammonds MD Work Phone: [facility] Work Phone: Start: 10-26-2024 End: 88-42-8831Ftdwvnf encounter procedureNino Hammonds MD Work Phone: [facility] CI FMComment on above:Routine general medical examination at health care facility (Primary Dx); ACP (advance care planning); Type 2 diabetes mellitus with diabetic chronic kidney disease (CMS/HCC); Chronic kidney disease, stage 3b (HCC) (CMS/HCC); Chronic pulmonary embolism (CMS/HCC)Start: 10-26-2024 End: 02-41-7422uasqwbctsxROHVAP B BERRYNot AvailableStart: 06-26-2024 End: 15-02-5153ddqdatlshpDyenhlu R WATERSFacility:EU [place]vueStart: 06-26-2024 End: 93-92-9115Ozmdtuk encounter procedurePatricnoé SNOW [facility] start: 06-25-2024 End: 01-91-1554Saatwx flowsBubba Hammonds MD Work Phone: [facility] CI FMStart: 06-25-2024 End: 87-54-1316Krrjqg flowsBubba Hammonds MD Work Phone: [facility] CI FMStart: 06-25-2024 End: 18-12-4653Jsivyw outpatient visit 15 minutesDacloe Hammonds MD Work Phone: [facility] CI FMComment on above:Type 2 diabetes mellitus with diabetic neuropathy, with long-term current use of insulin ([facility]); Flu vaccine needStart: 06-25-2024 End: 09-51-6822zgjuyhpehwXPCGJG B BERRYNot AvailableStart: 11-14-2022 End: 52-31-3761BlbjlhhrbNormh [facility] Start: 52-97-6423kpzhgaujraOP DANIEL BERRYFacility:H1 Start: 03-05-2022 End: 25-06-4267BvudocxjnAMBSQL B BERRY [facility] Start: 01-29-2022 End: 77-15-0982Iyrqieh encounter procedurePatricnoé SNOW [facility] start: 12-12-2021 End: 81-26-1773lusfoypalvST DANIEL BERRYFacility:H1 Procedures DateProcedureProcedure DetailPerforming ClinicianStart: 65-02-1937Bwykpbdoyo glycosylated h8mOzjfkaNino Hammonds MD Work Phone: Start: 69-95-2139Uv strs tst xers&/or rx cont ecg trcg Yoanna Oviedo CENSUS CLERK-RESEARCH TEST ENGINE EVALUATOR Work Phone: Start: 26-07-1598Vsjywcv CTDsariah Hammonds II Work Phone: Start: 67-46-5768QzinrqufwbWjyxneq WATERS Start: 72-72-9970Opuwu 1996 panel - Serum or Plasma Dena Caballero MD Work Phone: Start: 44-12-7592Fizmbxsx screenMoisezeke PreetComment on above:Result Comment: PERFORMED BY: [address]ETGumaroVICTORIA VILLE [id number] PATHOLOGIST PUBLIC INFORMATION OFFICER LIZZIE CASTRO M.D.Start: 21-26-3550TD LUMBAR SPINE 2 OR 3VDsariah Hammonds MD Work Phone: Start: 27-97-7232Yworrdyvnz glycosylated r2mAfymyhNino Hammonds MD Work Phone: Start: 38-76-7777Zufojmorjo glycosylated t0yFjyhubNino Hammonds MD Work Phone: Start: 57-84-1014Dhpwjmjidn glycosylated p5vXzztndNino Hammonds MD Work Phone: Start: 69-89-3199QdighpfxstbGukefi Berry MD Work Phone: Start: 70-89-9863DDL screeningDR NINO HAMMONDSComment on above:Performed By: #### PSAD #### [facility] [address] [place] [address] Dr. David SantiagoStart: 81-54-1536Hdldpolkajf biopsy of prostate using ultrasound guidancePaDataStax Comment on above:03/16/2014Start: 09-94-0116Kmklpcgkynr biopsy of prostate using ultrasound guidancePaDataStax Start: 45-74-9127Xcqux nephrectomyPaFlexuspinek A2B Comment on above:RIGHT Plan of Treatment DateCare ActivityDetailAuthorStart: 16-93-6864Ktitirrwe for malignant neoplasm of colonNOOK HealthcareStart: 98-60-9740Byprp panelLipid PanelGrant HospitalStjacksonville: 26-73-0551XVW High Risk: (Elderly (60+) or Population) (1 - 1-dose 75+ series)RSV High Risk: (Elderly (60+) or Population) (1 - 1-dose 75+ series)[facility]: 13-44-6747HRC Vaccine (1 - 1-dose 75+ series)RSV Vaccine (1 - 1-dose 75+ series) [facility]: 83-57-8805Nodko panelLipid PanelGrant HospitalStart: 17-47-7124rpsxyizvxzWmdciqcuyhBvozhpnw:EU BellevueStart: 03-66-7350Cvwhv screening for proteinDiabetes: Urine Protein ScreeningPARK CITY HOSPITAL HealthcareStart: 21-17-1844Frkujokg screeningDiabetes: Retinopathy ScreeningNOOK HealthcareStart: 04-21-2026Medicare Annual Wellness (AWV)Medicare Annual Wellness (AWV)NOM HealthcareStart: 10-06-2025 End: 99-21-3248Cotgtqb encounter ozmxonwrm64/01/2026 9:30 AM EDT Office Visit [facility] [address] [facility] [address] [place] [address] Shlomo Oviedo, CENSUS CLERK-[facility] [address] [facility] [address] [place] [address] [facility] HospitalStart: 95-14-0480Bnqrstghja A1c measurement Diabetes: Hemoglobin T6BLYBC HealthcareStart: 07-19-2025 End: 23-17-9298Svujjqg encounter zanljgmyw54/12/2026 9:30 AM EST Office Visit [facility] [place] Zaragoza [address] [facility] [address] [place] [id number] Nino Hammonds MD [address] [facility] [address] [place] [address] [facility] [place] [facility]Start: 07-14-2025 End: 84-81-4952IK.doppler Lower extremity vein - bilateralVascular US lower extremity venous duplex bilateral Vascular Ultrasound Routine VTE (venous thromboembolism) Acute bilateral deep vein thrombosis (DVT) of iliac veins of lower extremities Expected: 07/14/2025 (Approximate), Expires: 03/26/2027 [facility] Work Phone: Comment on above:Expected: 07/14/2025 (Approximate), Expires: 03/26/2027Start: 07-14-2025 End: 15-85-8631Nzgsamx encounter procedureManhattan Psychiatric Centertart: 06-16-2025 End: 33-99-5353Immyapp encounter yrjoochpa04/10/2025 10:30 AM EST Office Visit [facility] [place] [facility] [address] [facility] [address] [place] [address] Nino Hammonds MD [address] [facility] [address] [place] [address] NOMS [place] [facility] CenternceStart: 06-04-2025 Hemoglobin A1c measurementDiabetes: Hemoglobin W8KCASXBarnes-Jewish HospitalStart: 89-72-3744Xiznmsuron A1c measurementDiabetes: Hemoglobin D0EYCIQBarnes-Jewish Hospital Start: 05-10-2025 End: 71-74-1963Orvrlpu encounter aafbijcuv31/03/2025 2:45 PM EST Office Visit NOMS [place] [address] [facility] [address] [place] [address] Nino Hammonds MD [address] [facility] [address] [place] [address] ArrivedNOOK [place] [facility] CenternceComment on above:ArrivedStart: 04-14-2025 End: 15-13-6695Txrjhlc encounter quvispjjr45/08/2025 10:30 AM EDT Appointment [facility] [address] [facility] [address] [place] [address] [facility] HospitalStart: 04-07-2025 End: 32-48-9205Enhitfb stress study ProcedureStress Test Cardiac Services Routine Atypical atrial flutter Expected: 04/07/2025, Expires: 04/07/2026[facility] Service Area Work Phone: Comment on above:Expected: 04/07/2025, Expires: 04/07/2026Start: 04-07-2025 End: 40-49-0600OC for calcium scoring WO contrast and CTA W contrast IV Heart and coronary arteriesCT cardiac scoring wo IV contrast Imaging Routine Atypical atrial flutter Essential (primary) hypertension Mixed hyperlipidemia Type 2 diabetes mellitus without complication, with long-term current use of insulin (Multi) Expected: 04/07/2025, Expires: 04/07/2026[facility] Work Phone: Comment on above:Expected: 04/07/2025, Expires: 04/07/2026Start: 04-07-2025 End: 09-65-6470Fqwyawt encounter achjujzts19/01/2025 9:30 AM EDT Office Visit [facility] [address] [facility] [address] [place] [address] Shlomo Oviedo, CENSUS CLERK-RESEARCH TEST ENGINE EVALUATOR [address] [facility] [address] [place] [address] [facility]: 03-26-2025 End: 10-61-9151OI.doppler Lower extremity vein - bilateralVascular US lower extremity venous duplex bilateral Vascular Ultrasound Routine VTE (venous thromboembolism) Acute bilateral deep vein thrombosis (DVT) of iliac veins of lower extremities Expected: 03/26/2025 (Approximate), Expires: 03/26/2027[facility] Area Work Phone: Comment on above:Expected: 03/26/2025 (Approximate), Expires: 03/26/2027Start: 03-24-2025 End: 60-70-6371Jbzxxcz encounter zyorzdxlt14/17/2025 8:45 AM EDT Office Visit KATHERIN Zaragoza [address] [place] [id number] Nino Hammonds MD [address] [facility] [address] [place] [id number] NOMBeryl [place] MedinceStart: 03-19-2025 End: 98-01-2893Ppodizi encounter pinckgryj64/12/2025 10:00 AM EDT Office Visit NOMBeryl [place] [facility] [address] [facility] [address] [place] [address] Nino Hammonds MD [address] [facility] [address] [place] [address] ArrivedNOMS [place] MedinceComment on above:ArrivedStart: 63-24-1421CIXKV-19 Vaccine ( season)COVID-19 Vaccine ( season)[facility]Start: 03-08-2025 COVID-19 Vaccine ( season)COVID-19 Vaccine ( season)[facility] HealthcareStart: 86-40-9872Gsngspskb vaccinationInfluenza Vaccine (#1)N[facility] HealthcareStart: 59-81-6589OxqedbttoProMedica Memorial Hospitaltart: 03-04-2025 End: 02-89-9953opajplmfuf13/28/2025 11:00 AM EDT Visit (SP) Office Hematology/Oncology [address] [place] [address] Ollie Duong MD [address] [place] [address] Snow for active blood clot Hematology/OncologyComment on above:Referred by Dr. Snow for active blood clot Start: 82-51-6128Vuzajqkh to cardiologistProMedica Memorial Hospitaltart: 46-52-0491Ifvcqjfr to clinical allergistProMedica Memorial Hospitaltart: 66-43-0774Iuauhjxo admissionProMedica Memorial Hospitaltart: 03-03-2025 [facility] Hospitaltart: 88-50-4078Cktdbcljnpr of Right Lower Extremity Veins using Low Osmolar ContrastFluoroscopy of Right Lower Extremity Veins using Low Osmolar ContrastProMedica Memorial Hospitaltart: 95-47-7247Ucjeaiobfxvwn of Lower Vein, Percutaneous Approach, Ultrasonic Fragmentation of Lower Vein, Percutaneous Approach, [facility] CenterStart: 57-68-4807Glietpslphvok of Right Common Iliac Vein, Percutaneous Approach, UltrasonicFragmentation of Right Common Iliac Vein, Percutaneous Approach, [facility] CenterStart: 55-03-6605Bzqdrwpffozdk of Right Femoral Vein, Percutaneous Approach, Ultrasonic Fragmentation of Right Femoral Vein, Percutaneous Approach, [facility] CenterStart: 02-24-2025 End: 35-13-2450Ltfjjyy encounter procedureNOOK [place] [facility] SoutheComment on above:ArrivedStart: 02-18-2025 End: 08-76-3373Tjkldbs encounter procedureNOOK CI FMStart: 02-15-2025 End: 94-49-3789Sqovnwr encounter procedureNOOK [place] [facility] SoutheComment on above:ArrivedStart: 02-15-2025 End: 41-42-4338SQ Abdomen WO contrastCT abdomen wo IV contrast Imaging Routine Acute bilateral low back pain without sciatica History ofprimary malignant neoplasm of kidney Chronic kidney disease, stage 3b (CMS-HCC) Expected: 02/15/2025 (Approximate), Expires: 02/15/2026[facility] Work Phone: Comment on above:Expected: 02/15/2025 (Approximate), Expires: 02/15/2026Start: 64-44-2160Rxupo screening for proteinDiabetes: Urine Protein ScreeningBarnes-Jewish HospitalStart: 02-08-2025 End: 33-17-4610Nvrivll encounter ygsdxvxaz78/04/2025 3:45 PM EDT Office Visit [facility] [place] [facility] [address] [facility] [address] [place] [address] Nino Hammonds MD [address] [facility] [address] [place] [address] ArrivedNOOK [place] [facility] Hospitalomment on above:ArrivedStart: 02-08-2025 End: 94-58-8033Djzlkwlopftcl metabolic 2000 panel - Serum or PlasmaComprehensive metabolic panel Lab Routine Acute bilateral low back pain without sciatica Localized edema History of primary malignant neoplasm of kidney Expected: 02/08/2025 (Approximate), Expires: 02/08/2026NOMS HealthcareComment on above: Expected: 02/08/2025 (Approximate), Expires: 02/08/2026Start: 02-08-2025 End: 50-69-5835Fndjlayeyu complete panel - UrineUrinalysis with microscopic Lab Routine Acute bilateral low back pain without sciatica Localized edema History of primary malignant neoplasm of kidney Expected: 02/08/2025 (Approximate), Expires: 02/08/2026NOMS HealthcareComment on above:Expected: 02/08/2025 (Approximate), Expires: 02/08/2026Start: 02-08-2025 End: 51-76-3836NN Lumbar spine 2 or 3 ViewsXR lumbar spine 2 or 3 views Imaging Routine Acute bilateral low back pain without sciatica Historyof primary malignant neoplasm of kidney Expected: 02/08/2025, Expires: 02/08/2026[facility] Work Phone: Comment on above:Expected: 02/08/2025, Expires: 02/08/2026Start: 10-36-4862Ugmsdrmquz A1c measurementDiabetes: Hemoglobin A1C [facility] HealthcareStart: 01-11-2025 End: 85-64-6338Kfntuaw encounter keyvwxfwf68/07/2025 11:00 AM EDT Office Visit NOMS CI [facility] [address] [facility] [address] [place] [address] Nino Hammonds MD [address] [facility] [address] [place] [address] ArrivedNOMS CI FMComment on above:ArrivedStart: 10-26-2024 End: 69-16-4319Rlvztrq encounter procedureNOMS CI FMComment on above:Arrived Start: 30-34-2914Ngorzzkwsa A1c measurementDiabetes: Hemoglobin K8OTASC HealthcareStart: 01-24-2025Medicare Annual Wellness (AWV)Medicare Annual Wellness (AWV)NOMS HealthcareStart: 53-48-2111Sddefdh Directive Discussion Advance Directive DiscussionSaint Joseph ClinicStart: 06-25-2024 End: 86-01-1895Vhnirkm encounter izixtaozc22/19/2024 10:00 AM EST Office Visit NOMS [facility] [address] [facility] [address] [place] [address] Nino Hammonds MD [address] [facility] [address] [place] [address] ArrivedNOMS CI FMComment on above:ArrivedStart: 05-26-2024 Hemoglobin A1c measurementDiabetes: Hemoglobin A9UAOIS HealthcareStart: 48-22-7422Cmvwpcxtw vaccinationInfluenza Vaccine (#1)NOMS HealthcareStart: 31-70-1890Vqxjqrkxs aortic aneurysm screeningAbdominal Aortic Aneurysm (AAA) ScreeningUnProMedica Toledo Hospital: 53-36-4387WYR High Risk: (Elderly (60+) or Population) (1 - Risk 60-74 years 1-dose series)RSV High Risk: (Elderly (60+) or Population) (1 - Risk 60-74 years 1-dose series)[facility]: 54-42-5643Lsmoldiunvms vaccinationPneumococcal Vaccine (1 of 1 - PCV)[facility] Start: 33-89-6519Zpqcuboqvcxb Vaccine: 50+ (1 of 1 - PCV)Pneumococcal Vaccine: 50+ (1 of 1 - PCV)[facility]: 07-90-3732Frvogfhm Vaccine (1 of 2) Shingrix Vaccine (1 of 2)[facility]: 79-62-5816Rclfcl Vaccines (1 of 2)Zoster Vaccines (1 of 2)[facility]: 1999 Diabetes ScreeningDiabetes ScreeningKettering Health [facility]tart: 03-87-7405Yeiqfycii for malignant neoplasm of colonK[facility]tering Health [facility]: 08-11-0469Ohcor panelLipid ScreeningKettering Health [facility]: 03-69-2508TUcP/Tdap/Td Vaccines (1 - Tdap) DTaP/Tdap/Td Vaccines (1 - Tdap)[facility]: 93-02-5277Cpxlfulyenfz vaccinationPneumococcal Vaccine (1 of 2 - PCV)[facility]: 19-99-0443Ptsmabrexuvn Vaccine: 65+ Years (1 of 2 - PCV)Pneumococcal Vaccine: 65+ Years (1 of 2 - PCV)[facility] HospitalStart: 13-06-7756Gbzsn microalbumin profileDTaP,Tdap,Td Vaccine (1 - Tdap)[facility]: 19-82-1795Lwifhpd ScreeningAnxiety ScreeningKettering Health [facility]: 58-33-6258Vmpjsxvhlc ScreeningDepression ScreeningKettering Health [facility]: 64-45-3165Wcvncjjz mellitus screeningDiabetes ScreeningUnProMedica [facility]edo Hospital: 18-84-9306Xynjptvav C screeningHepatitis C ScreeningKettering Health [facility]tart: 58-44-7737Jcqjdffq screeningDiabetes: Retinopathy Screening [facility]: 24-66-9959Ooiyixphhmba Vaccine: 65+ Years (1 of 2 - PCV)Pneumococcal Vaccine: 65+ Years (1 of 2 - PCV)[facility] HospitalStjacksonville: 34-91-1300CYJ Vaccines (1 of 1 - Standard series)MMR Vaccines (1 of 1 - Standard series)[facility]: 1955 Hemoglobin A1c measurementDiabetes: Hemoglobin P2JAjagktikshSuburban Community Hospital [facility]: 1954Medicare Annual Wellness VisitMedicare Annual Wellness Visit (AWV)[facility]: 30-67-6644Cfnuzdjfc for malignant neoplasm of colonNOOK HealthcareCB W Auto Differential panel - Blood CBC and differential Lab Routine Acute bilateral low back pain without sciatica Localized edema History of primary malignant neoplasm of kidney Ordered: 02/08/2025NOOK HealthcareComment on above:Ordered: 02/08/2025Patient Education Know your MedsUniversity [facility]als [facility] Work Phone: Patient referralUniversity Hospitals Parma [facility] Center [facility] Work Phone: Immunizations Immunization DateImmunizationNotesCare FjfrpqlfZygjabxg90-93-9424dldgwynns virus vaccine, unspecified formulationPakamrynk EDY [facility]12-19-2024Influenza, High-dose Seasonal, Quadrivalent, Preservative Free Nino Hammonds MD Work Phone: NOWestern [facility] CenterQeuaslkmwc90-20-6981jknrpvgbn, high dose seasonal, preservative-Jaquelin Hammonds MD Work Phone: NOW[facility] CenterXowuxcsfqb83-51-8042dqzdjpyzi virus vaccine, unspecified formulationNino Hammonds MD Work Phone: [facility]11-24-2021influenza, high dose seasonal, preservative-Jaquelin Hammonds MD Work Phone: NOWestern [facility] CenterXawbsshshk35-05-6806IUAY-EnZ-9 (COVID-19) mRNA BNT-162b2 Joey [facility]10-18-2021Pfizer Purple Cap SARS-CoV-2 VaccinationNino Hammonds MD Work Phone: [facility] CenterAqjyglyjli34-07-5975UXKS-CxU-6 (COVID-19) mRNA BNT-162b2 Joey [facility]03-25-2021Pfizer Purple Cap SARS-CoV-2 VaccinationNino Hammonds MD Work Phone: [facility] CenterRokzvvyqwn21-70-0701APKU-ZuR-2 (COVID-19) mRNA BNT-162b2 Joey [facility] HospitalComment on above:Result Comment: 2024-06-26: AUT7817-74-3403Ydxcms Purple Cap SARS-CoV-2 VaccinationNino Hammonds MD Work Phone: NOW[facility] CenterQnnvlplezt55-28-1190ZKFV-VrX-2 (COVID-19) mRNA- 1273 vaccineSpry Hive [employer] [facility] 01479989-98-3155uvfxhctat virus vaccine, unspecified formulationPamiddlesboro arh hospitalk SNOW [facility]01-07-2021influenza, injectable, quadrivalent, preservative Jaquelin Hammonds MD Work Phone: [facility] CenterPdjdepmexv30-27-0000Krdgbjjbq, Seasonal, Quadrivalent, AdjuvantWillis Hammonds MD Work Phone: [facility] Payers DatePayer CategoryPayerPolicy [id number] supplemental policy (as second payer)GENERIC MEDICARE SUPPLEMENT [id number] Health [id number] 2019Medicare [id number] [id number] 57-47-2767Lebw-[id number] 2.840.1.087525.3.57[id number] 2.840.1.076977.3.57[id number] 2.840.1.068350.3.579.2.[id number] 2.16.840.1.423534.3.57[id number] 2.16.840.1.399802.3.579.2.[id number] 2.16.840.1.747778.3.57[id number] 2.16.840.1.261882.3.579.2.[id number] 2.16.840.1.148742.3.579.2.[id number] 2.16.840.1.042990.3.579.2.44[id number] 2.16840.1.379709.3.579.2.234851-46-3435Xeqbxjl61380721 2.16.840.1.747795.3.579.2.279063-87-4894Zocweui93055311 2.16.840.1.572437.3.579.2.387254-74-8923Ucfcwbc15984742 2.16.840.1.116311.3.579.2.976831-74-2321Tsothmd21604559 2.16.840.1.759824.3.579.2.627227-18-2199Vnpwtgv29665042 2.16.840.1.798580.3.579.2.009849-09-8569Eceevrm71073621 2.16.840.1.019882.3.579.2.740296-88-6058Rsltsql87819350 2.16.840.1.524965.3.579.2.051620-33-8211Lvhxfup9402528 2.840.1.949097.3.579.2.433947-66-3310Taizmjr2259759 2.840.1.678241.3.579.2.1259UnknownAnthem /[id number] 3wr71999-p8p8-875j-w9zm-dt07327b45ulImjfytp08277743 2..840.1.878180.3.579.2.151Qorsazf23957062 2.840.1.455926.3.579.2.531 Social History DateTypeDetailFacilityStart: 01-29-2022 End: 18-93-9522Avoqwxv smoking statusEx-smoker (finding)[facility] start: 02-24-2024 End: 08-81-1420Ugi Assigned At BirthMaleExecutive [facility]rology [facility] start: 07-08-1960 End: 92-68-0557Dnhimte of tobacco useCurrent smokerNOMS HealthcareStart: 07-08-1960 End: 81-94-0372Cuchofi of tobacco useCigarette SmokerNOMS HealthcareStart: 07-31-2023 End: 19-13-0275Ezgehtffbm smoked current (pack per day) - Uiakltts2CVCU HealthcareStart: 07-31-2023 End: 92-34-7132Donuuaw use and exposureSmokeless tobacco non-userNOMS Healthcare Start: 02-24-2024 End: 69-86-5356Qbooencwm beverage intakeCurrent drinker of alcohol (finding)[facility] HealthcareStart: 45-06-6444Gde assigned at birthNot on fileNOMS Healthcare Start: 08-29-2012 End: 38-44-2477Bvnnywl smoking statusNeverExecutive Urology of [facility]oster Community Hospitalexual OrientationExec[facility] start: 01-38-5494AaqIecx (finding)[facility] CenterStart: 01-59-9639Imv Assigned At [facility] Centertart: 14-08-4914Lnfmigj smoking status NHISNever smoked tobacco [facility]Start: 49-94-2125Xlpdqwt CommentsociallyCkettering health washington township ClinicStart: 40-51-5758CPLC Follow upSDOH Follow upWooster Community Hospital Work Phone: Start: 85-40-8963Nuhoyxv Commentoccasional [facility] Work Phone: Medical Equipment Procedure CodeEquipment CodeEquipment Original TextEquipment IdentifierDates [id number]: 85-81-3610LCGQ 3 TIMES DAILY DIRECTED [id number]: each by Other route in the morning and 1 each in the evening and 1 each before bedtime. Use as instructedTEST 3 TIMES DAILY DIRECTED E11.65. [id number]: 09-07-2024 End: 78-41-4447GWF TWICE A DAY ESESIEIY15596180Wjmof: 12-24-2024 Goals DatePatient GoalDesired Activity/State Functional Status PyljYyvoqzyfmuUzwetbMlewmtbu84-45-6692Snnyoig Health Questionnaire 2 item (PHQ- 2) [Reported][facility] HospitalZhvpzwdyxz85-68-3679Ndnjbawheu /82 04/14/2025 10:22 AM EDT Teja Velasquez RN 152/82[facility]10-08-2025Vital signs64 04/14/2025 10:22 AM EDT Teja Velasquez RNGrant Hospital Work Phone: 1([phone]) [phone]ekprflf uegtny237/64[facility] Work Phone: [phone]) 237-251710-869101-64-0388Vvecz signs64 04/07/2025 9:35 AM EDT [facility] Huffman [facility] Work Phone: [phone]bngdpbdiGrant Hospital Work Phone: [phone]) [phone]jesfjxd ehcfqg747/74UnUniversity Hospitals [facility] Work Phone: [phone] 580-896909-467407-89-8095Jmhko signs93 03/26/2025 12:54 PM EDT Madai Kaur, [facility] Work Phone: 1(852) [phone]HjitkqfvlzGrant Hospital Work Phone: 1(669) [phone]wloqden statusPatient at Baseline [facility] Work Phone: [phone]yng Health Questionnaire 2 item (PHQ-2) [Reported][facility] HospitalZgtwgdnopw44-07-5709Wouvgoy Health Questionnaire 2 item (PHQ-2) [Reported][facility] HospitalKazuvsunue89-38-1174Rctqiac Health Questionnaire 2 item (PHQ-2) [Reported][facility]Jewish HospitalSmzmftopix74-91-4974Vzxzuapnrb StatusN/AExecutive [facility]rology of [facility]07-25-2022Functional StatusN/AExec[facility] Mental Status LxgaYxvdjwhcbhMqkkwxPrmdxqeg76-47-4341Nkdplgixp functionCognitive Status Patient at BaselineW[facility]oster [facility] Work Phone: Clinical Notes 01-29-2022 to 05-10-2025 Note Date & GzyxBrejCgnikywo90-10-4274 History of Present illness Narrative* Nino Hammonds MD - 05/10/2025 2:45 PM EST Images from the original note were not included. Subjective Patient ID: Evelio Irene is a 70 y.o. male who presents for lab results. Evelio presents today to go over lab results form 04/14/25. Over the past 2 weeks, how often have you been bothered by any of the following problems? Little interest or pleasure in doing things: Several days Feeling down, depressed, or hopeless: Not at all Patient Health Questionnaire-2 Score: 1 Current Outpatient Medications on File Prior to Visit Medication Sig Dispense Refill [DISCONTINUED] insulin glargine (Toutorin Solostar, 1 unit dial,) 300 UNIT/ML injection Inject 30 Units under the skin in the morning and 30 Units before bedtime. 6 mL 11 finasteride (Proscar) 5 MG tablet TAKE 1 TABLET BY MOUTH EVERY DAY IN THE MORNING 90 tablet 4 insulin pen needle (BD Pen Needle Mery [...] evening and 1 each before bedtime. Lancets (SkillPages DelHandelabraGames Plus Gymmqt33A) misc USE TWICE DAILY FOR FINGER STICK E11.65 lisinopril 20 MG tablet Take 1 tablet (20 mg) by mouth Daily 100 tablet 3 lovastatin (Altoprev) 20 MG 24 hr tablet Take 20 mg by mouth Daily metoprolol succinate XL (Toprol-XL) 25 MG 24 hr tablet Take 25 mg by mouth Daily SETVIuch Ultra test strip 1 each by Other route in the morning and 1 each in the evening and 1 eachbefore bedtime. rivaroxaban (Xarelto) 20 MG tablet Take 20 mg by mouth in the evening. Take with meals Take with food. terazosin (Hytrin) 5 MG capsule TAKE 1 CAPSULE BY MOUTH EVERY DAY 100 capsule 3 torsemide (Demadex) 20 MG tablet TAKE 1 TABLET (20 MG) BY MOUTH DAILY FOR 15 DAYS 90 tablet 1 [DISCONTINUED] lisinopril 20 MG tablet Take 20 mg by mouth Daily [DISCONTINUED] lisinopril 20 MG tablet TAKE 1 TABLET BY MOUTH DAILY 100 tablet 3 No current facility-administered medications on file prior to visit. I have reviewed and reconciled the history and medication list with the patient today. No Known Allergies Social History Tobacco Use Smoking status: Former Current packs/day: 0.00 Average packs/day: 3.0 packs/day for 40.0 years (120.0 ttl pk-yrs) Types: Cigarettes Start date: 07/08/1960 Quit date: 07/08/1999 Years since quittin.8 Smokeless tobacco: Never Vaping Use Vaping status: [...] REPAIR Right inguinal NEPHRECTOMY Visit Vitals BP 134/68 Pulse 54 Resp 16 Ht 6' 1 Wt 241 lb SpO2 97% BMI 31.80 kg/m Smoking Status Former BSA 2.37 m Review of Systems Objective Physical Exam [...] Palpations: Abdomen is soft. Musculoskeletal: Right lower le+ Pitting Edema present. Left lower le+ Edema present. Comments: Several small ulcers anterior pretibial RLE Neurological: Mental Status: He is alert. Psychiatric: Mood and Affect: Mood normal. Thought Content: Thought content normal. Office Visit on 05/10/2025 Component Date Value Ref Range Status Hemoglobin A1C 05/10/2025 6.4 Final Assessment/Plan Diagnoses and all orders for this visit: Type 2 diabetes mellitus with diabetic neuropathy, with long-term current use of insulin (HCC) - POCT glycosylated hemoglobin (Hb A1C) docked device - Add 15 Units of Humalog daily with breakfast Hypercoagulable state (HHS-HCC) Factor V Leiden mutation (HHS-HCC) - Discussed at length, he will need OAC for lifetime. Acute deep vein thrombosis (DVT) of distal vein of right lower extremity (HCC) Other orders - Follow Up In Family Medicine; Future Follow up with Dr. Nino Hammonds in 1 month (on 06/09/2025). documented in this encounterBarnes-Jewish HospitalPifbahnogo22-56-0026 NoteHNO ID: [id number] Author: OLLIE DUONG MD Service: ? Author Type: Physician Type: Progress Notes Filed: 04/13/2025 16:44 Note Text: PATIENT NAME: Evelio Irene CLINIC NO.: [id number] ATTENDING PHYSICIAN: Ollie Duong MD DATE OF SERVICE: 04/13/[address] Leon Snow [address] [facility] [address] thank you for referring Evelio Irene for an opinion regarding DVT. CHIEF COMPLAINT: DVT HPI: Evelio Irene is a 70 year old year old male with PMH of RCC s/p right nephrectomy in 2012, DVT/PE, DM, HTN, DLD Hospitalized in Feb 2025 with extensive DVT s/p thrombolysis in [facility]. - H/o first episode DVT/PE many yrs ago. - Second episode of DVT in Feb 2025. Unprovoked - Switched to baby aspirin alone for 6 months prior to second episode DVT in Feb 2025. - H/o IVC filter placed. - On xarelto 20mg once a day. - Mother- stroke. - Father- stomach cancer - Brother- prostate cancer - Quit smoking many yrs ago. - Occasional alcohol. 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 - 1 children . - Last colonoscopy few years ago. Current Outpatient Medications Medication Sig furosemide (LASIX) 20 mg tablet Take 1 tablet by mouth once daily. insulin lispro (HUMALOG KWIKPEN INSULIN) 100 unit/mL Refills(s) 0 lisinopril (ZESTRIL) 5 mg tablet Take 5 mg by mouth once daily. SOLIQUA 100/33 100 unit-33 mcg/mL inpn Inject subcutaneously. tiZANidine (ZANAFLEX) 4 mg tablet TAKE 1 TABLET (4 MG) BY MOUTH EVERY 6 HOURS IF NEEDED FOR MUSCLE SPASMS FOR UP TO 10 DAYS torsemide (DEMADEX) 20 mg tablet XARELTO DVT-PE TREAT 30D START 15 mg (42)- 20 mg (9) DsPk TAKE 15MG BY MOUTH TWICE DAILY FOR 21 DAYS,THEN 20MG DAILY NOVOLIN R FLEXPEN 100 unit/mL (3 mL) pen INJECT 30 UNITS SUBCUTANEOUSLY ONCE IN THE EVENING BEFORE MEAL HYDROcodone-acetaminophen (NORCO) 5-325 mg per tablet TAKE 1 TABLET BY MOUTH EVERY 6 HOURS NEEDED FOR SEVERE PAIN FOR UP TO 5 DAYS doxycycline hyclate (VIBRAMYCIN) 100 mg capsule ciprofloxacin HCl (CIPRO) 500 mg tablet benzonatate (TESSALON PERLE) 100 mg capsule take 1 capsule by mouth three times a day as needed for cough sitaGLIPtin (JANUVIA) 100 mg tablet Take 100 mg by mouth once daily. terazosin 5 mg capsule Take 5 mg by mouth daily at bedtime. warfarin 10 mg tablet Take 10 mg by mouth daily as directed. Lovastatin 20 mg 24 hr tablet Take 20 mg by mouth daily at bedtime. metFORMIN 500 mg 24 hr tablet Take 500 mg by mouth twice daily with meals. finasteride 5 mg tablet Take 5 mg by mouth once daily. No current facility-administered medications for this visit. ALLERGIES No Known Allergies PAST MEDICAL HISTORY Diagnosis Date Anticoagulated BPH with urinary obstruction Diabetes mellitus (HCC) Elevated prostate specific antigen (PSA) H/O renal cell cancer Hyperlipidemia Protein in urine Pulmonary embolism (HCC) Renal mass PAST SURGICAL HISTORY Procedure Laterality Date CYSTOSCOPY HERNIA REPAIR HX LAP NEPHRECTOMY FAMILY HISTORY Problem Relation Age of Onset Cancer Father stomach Diabetes Mother SOCIAL HISTORY[1] REVIEW OF SYSTEMS GENERAL: No weight loss, malaise or fevers. No night sweats. HEENT: Negative for headaches, No changes in hearing or vision, no nose bleeds or other nasal problems. RESPIRATORY: Negative for cough, wheezing and shortness of breath CARDIOVASCULAR: Negative for chest pain, leg swelling and palpitations GI: Negative for abdominal discomfort, blood in stools or black stools and change in bowel habits : Negative for dysuria, frequency and incontinence MUSCULOSKELETAL: Negative for joint pain or swelling, back pain, and muscle pain. SKIN: Negative for lesions, rash, and itching. HEMATOLOGY/LYMPHOLOGY Negative for prolonged bleeding, bruising easily, and swollen nodes. NEURO: Negative for numbness or tingling of hands/feet. No weakness. PHYSICAL EXAMINATION: There were no vitals taken for this visit. There were no vitals taken for this visit. Last 3 Encounter Wt Readings: Date: Wt: 09/24/2012 95.3 kg (210 lb) 09/10/2012 95.9 kg (211 lb 6.4 oz) General appearance:ECOG PERFORMANCE STATUS: 0- Fully active, able to carry on all pre-disease performance w/o restriction. Patient in NAD. Skin: Skin color, texture, turgor normal. No rashes or lesions. Eyes: Anicteric sclera. Pupils are equally round and reactive to light. Extraocular movements are intact. Breast: No palpable breast masses. No nipple change or discharge. Lymph Nodes: No cervical, supraclavicular, axillary or inguinal adenopathy. Oropharynx: Lips, mucosa, and tongue normal. Back: No pain to percussion. Negative SLR test Lungs clear to auscultation, No wheezing or rhonchi Heart: RRR without murmur, gallop, or rubs. Abdomen soft, non-tender. No masses, organomegaly Extremities: No deformities. No edema Neuro: Gait and speech normal. Reflexes normal and symmetric. Muscular strength intact. Sensation g (more content not included)...[facility] 04-09-2025 Radiology Diagnostic study [facility] [place] [address] [place] [address] CT Scan Report Signed Patient: Evelio Irene MR#: [id number] : 1955 Acct:[id number] Age/Sex: 69 / M ADM Date: 5 Loc: CT Room: Type: [facility] Attending Dr: Shlomo Oviedo CENSUS CLERK Copies to: Shlomo Oviedo APRN~ Ordering Provider: Shlomo Oviedo APRN Date of Service: 04/09/25 CT/CT heart calcium score wo: I48.4 CT heart calcium score w/o contrast REASON FOR EXAM: Hypertension diabetes A. fib. TECHNIQUE: Prospective gated imaging of the heart were obtained for calcium evaluation of the coronary arteries. Agatston score was calculated. The CT exam was performed using one or more the following dose reduction techniques: Automated exposure control, adjustment of the MA and/or Kv according to patient size, or use of the iterative reconstruction technique. COMPARISON:None FINDINGS: LEFT MAIN: 199.76 LEFT ANTERIOR DESCENDIN.69 CIRCUMFLEX: 231.11 RIGHT CORONARY ARTERY: 725.29 TOTAL AGATSTON CALCIUM SCORE: 1683.86 This calcium score places the patient at the 85th percentile. EXTRACARDIAC STRUCTURES: No evidence of mediastinal or hilar lymphadenopathy. No pericardial effusion. Visualized lungs demonstrate no acute process. No lung nodule is seen. Limited images of the upper abdomen demonstrate no acute findings. CT/CT heart calcium score wo IMPRESSION: No significant extracardiac CT findings. CALCIUM SCORE INTERPRETATION (>300) Risk is moderately to severely increased. Treatment recommendation - high intensity statin plus ASA 81mg. Source: September 2017 - Coronary artery calcium data and reporting system. An expert consensus document of the Society of Cardiovascular Computed Tomography) Impression dictated by: Aamir Chu Jr., D.OArnulfo 04/09/2025 4:20 PM Dictation Location: [facility]--23 Transcribed By: PWS 04/09/25 1620 Dictated By: Aamir Chu Jr DO 04/09/25 1609 Signed By: 04/09/25 1620 [facility]10-01-2025 Evaluation + Plan note* Assessment & Plan Note - THAILA Rodriguez - 04/07/2025 5:07 PM EDTAssociated Problem(s): BMI 32.0-32.9,adult Reviewed the merits of healthy lifestyle choices on overall cardiovascular health. [facility] Work Phone: [phone] 847-494710-01-2025 Evaluation + Plan note* Assessment & Plan Note - THALIA Rodriguez - 04/07/2025 5:07 PM EDTAssociated Problem(s): Type 2 diabetes mellitus without complication, with long-term current use of insulin (Multi) Reports being a diabetic greater than 10 years Recent hemoglobin A1c 6.8 [facility] Work Phone: 1([phone]) 639-257210-01-2025 Miscellaneous Notes* Assessment & Plan Note - THALIA Rodriguez - 04/07/2025 5:07 PM EDTAssociated Problem(s): BMI 32.0-32.9,adult Reviewed the merits of healthy lifestyle choices on overall cardiovascular health. 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 Denies bleeding diathesis * Assessment & Plan Note - THALIA Rodriguez - 04/07/2025 5:06 PM EDT Associated Problem(s): Chronic deep vein thrombosis (DVT) of proximal vein of both lower extremities (Multi) Initial PE DVT in 1999February 2025 recurrent extensive lower extremity DVT extending to IVC filter: Presented off of anticoagulation greater than 6 months. * Assessment & Plan Note - THALIA Rodriguez - 04/07/2025 5:05 PM EDT Associated Problem(s): Factor V deficiency (Multi) Diagnosed around 1999 and had been treated on Coumadin until earlier this year at which time he self discontinued. He then presented with extensive lower extremity thrombus up to IVC filter requiringEKOS in February 2025. * Assessment & Plan Note - THALIA Rodriguez - 04/07/2025 5:05 PM EDT Associated Problem(s): Mixed hyperlipidemia Low intensity statin February 2025 cholesterol 135, HDL 30 * Assessment & Plan Note - THALIA Rodriguez - 04/07/2025 5:04 PM EDT Associated Problem(s): Essential (primary) hypertension Optimal in office * Assessment & Plan Note - THALIA Rodriguez - 04/07/2025 5:04 PM EDT Associated Problem(s): Atypical atrial flutter Index event February 2025 hospitalization where telemetry showed sinus rhythm with PACs and very brief atrial flutter. Initiated on metoprolol at time of discharge. 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 Denies bleeding diathesis [facility] Work Phone: [phone] 316-216810-01-2025 Evaluation + Plan note* Assessment & Plan Note - THALIA Rodriguez - 04/07/2025 5:06 PM EDTAssociated Problem(s): Chronic deep vein thrombosis (DVT) of proximal vein of both lower extremities (Multi) Initial PE DVT in 1999February 2025 recurrent extensive lower extremity DVT extending to IVC filter: Presented off of anticoagulation greater than 6 months. [facility] Work Phone: [phone] 834-117110-01-2025 Evaluation + Plan note* Assessment & Plan Note - THALIA Rodriguez - 04/07/2025 5:05 PM EDTAssociated Problem(s): Factor V deficiency (Multi) Diagnosed around 1999 and had been treated on Coumadin until earlier this year at which time he self discontinued. He then presented with extensive lower extremity thrombus up to IVC filter requiringEKOS in February 2025. [facility] Work Phone: [phone] 428-496310-01-2025 Evaluation + Plan note* Assessment & Plan Note - THALIA Rodriguez - 04/07/2025 5:05 PM EDTAssociated Problem(s): Mixed hyperlipidemia Low intensity statin February 2025 cholesterol 135, HDL 30 [facility] Work Phone: 1([phone] 249-102410-01-2025 Evaluation + Plan note* Assessment & Plan Note - THALIA Rodriguez - 04/07/2025 5:04 PM EDTAssociated Problem(s): Essential (primary) hypertension Optimal in office [facility] Work Phone: [phone] 279-345810-01-2025 Evaluation + Plan note* Assessment & Plan Note - THALIA Rodriguez - 04/07/2025 5:04 PM EDTAssociated Problem(s): Atypical atrial flutter Index event February 2025 hospitalization where telemetry showed sinus rhythm with PACs and very brief atrial flutter. Initiated on metoprolol at time of discharge. [facility] Work Phone: [phone] 336-914510-01-2025 History of Present illness Narrative* THALIA Rodriguez - 04/07/2025 9:30 AM EDT Chief Complaint I think I am doing good Reason for Visit Patient presents to the office today for outpatient follow-up for hospital follow-up. This is initial in clinic evaluation at [facility] Presents today ambulatory with steady gait. February 2025: Hospitalized at [facility] due to lower extremity DVT with EKOStreatment. Seen in consult by Dr. Garcia due to questionable atrial flutter-telemetry was sinusrhythm with PACs with maybe brief atrial flutter. Inpatient echocardiogram for the most part unremarkable. He was placed on metoprolol at discharge. Was also placed on anticoagulation due to DVT and longstanding history of factor V Leiden. History of Present Illness Patient is a pleasant 69-year-old gentleman who presents to the office today where he is slowly starting to increase his activity level. He does report that the swelling in his lower extremity has decreasing, he did have some blisters on his lower extremities and 1 skin tear on his right levin that seems to be healing, no erythema or drainage. No signs of cellulitis. Prior to recent DVT he was walking approximately 1 mile, doing yard work and going up and down stairs without concerns. He denies any type of palpitations, no dizziness or lightheadedness. Cardiovascular risk profile: Treated hypertension Treated hyperlipidemia Treated diabetes Quit smoking greater than 20 years ago Negative family history of premature coronary artery disease Inpatient echo showed LVEF 60-65%, LVH mild. Due to risk factor profile, arrhythmia will proceed with GXT and calcium score for baseline testing(may need for AA). Patient reports that overall has no complaint(s) of chest pain, chest pressure/discomfort, claudication, dyspnea, exertional chest pressure/discomfort, fatigue, and irregular heart beat Review of Systems Cardiovascular: Negative for chest pain, dyspnea on exertion, irregular heartbeat, leg swelling, near-syncope, orthopnea, palpitations, paroxysmal nocturnal dyspnea and syncope. Visit Vitals BP 142/64 (BP Location: Right arm, Patient Position: Sitting) Pulse 64 Ht 1.854 m (6' 1 ) Wt 111 kg (244 lb) BMI 32.19 kg/m Smoking Status Former BSA 2.39 m Physical Exam Vitals and nursing note reviewed. Constitutional: Appearance: Normal appearance. Cardiovascular: Rate and Rhythm: Normal rate and regular rhythm. Heart sounds: Normal heart sounds. Comments: LLE 1+ edema Pulmonary: Effort: Pulmonary effort is normal. Breath sounds: Normal breath sounds. Musculoskeletal: Cervical back: Full passive range of motion without pain. Right lower leg: No edema. Left lower leg: No edema. Skin: General: Skin is cool. Neurological: Mental Status: He is alert and oriented to person, place, and time. Psychiatric: Attention and Perception: Attention normal. Mood and Affect: Mood normal. Behavior: Behavior is cooperative. ALLERGIES: Patient has no known allergies. Current Outpatient Medications Medication Instructions finasteride (PROSCAR) 5 mg, Daily before breakfast lisinopril 20 mg, Daily RT lovastatin (ALTOPREV) 20 mg metoprolol succinate XL (TOPROL-XL) 25 mg, Daily RT Mery 2nd Gen Pen Needle 32 gauge x 5/32 needle NovoLIN R FlexPen 100 unit/mL (3 mL) insulin pen INJECT 30 UNITS SUBCUTANEOUSLY ONCE IN THE EVENINGBEFORE MEAL OneTouch Ultra Test TEST 3 TIMES DAILY DIRECTED E11.65 Soliqua 100/33 100 unit-33 mcg/mL insulin pen 60 Units Xarelto 20 mg tablet TAKE 1 TABLET BY MOUTH EVERY DAY WITH EVENING MEAL, BEGIN AFTER COMPLETION OF STARTER PACK Assessment: Atypical atrial flutter Index event February 2025 hospitalization where telemetry showed sinus rhythm with PACs and very brief atrial flutter. Initiated on metoprolol at time of discharge. Essential (primary) hypertension Optimal in office Mixed hyperlipidemia Low intensity statin February 2025 cholesterol 135, HDL 30 Factor V deficiency (Multi) Diagnosed around 1999 and had been treated on Coumadin until earlier this year at which time he self discontinued. He then presented with extensive lower extremity thrombus up to IVC filter requiringEKOS in February 2025. Chronic deep vein thrombosis (DVT) of proximal vein of both lower extremities (Multi) Initial PE DVT in 1999February 2025 recurrent extensive lower extremity DVT extending to IVC filter: Presented off of anticoagulation greater than 6 months. [facility]PC (current) use of anticoagulants Due to factor V Leiden and recurrent PE/DVT CHADS VASc 3 Chronically anticoagulated full dose Xarelto. Denies bleeding diathesis Type 2 diabetes mellitus without complication, with long-term current use of insulin (Multi) Reports being a diabetic greater than 10 years Recent hemoglobin A1c 6.8 BMI 32.0-32.9,adult Reviewed the merits of healthy lifestyle choices on overall cardiovascular health. Plan: Through informed decision making process incorporating patients unique circumstances, the followingtreatment plan will be initiated: 1. Prescription drug management of cardiovascular medication for efficacy, adherence to treatment, side effect assessment and polypharmacy. Current treatment clinically warranted and to continue without modifications. 2. Calcium score (risk factor) 3. GXT (PAC, atrial flutter) 4. Return for follow-up; in the interim, contact the office if new symptoms arise. REVIEW SPECIALIST 6 months Shlomo Oviedo MSN, CENSUS CLERK-RESEARCH TEST ENGINE EVALUATOR, PMHNP-[facility] [place], [place] Please excuse any errors in grammar or translation related to this dictation. Voice recognition software was utilized to prepare this document. documented in this [facility] Work Phone: 1([phone]) [phone] Instructions* Patient Instructions* THALIA Rodriguez - 04/07/2025 9:30 AM EDT Please bring all medicines, vitamins, and herbal supplements with you when you come to the office. Prescriptions will not be filled unless you are compliant with your follow up appointments or have a follow up appointment scheduled as per instruction of your physician. Refills should be requested at the time of your visit. PLAN: Through informed decision making process incorporating patients unique circumstances, the followingtreatment plan will be initiated: 1. Prescription drug management of cardiovascular medication for efficacy, adherence to treatment, side effect assessment and polypharmacy. Current treatment clinically warranted and to continue without modifications. 2. Calcium score (risk factor) 3. GXT (PAC, atrial flutter) 4. Return for follow-up; in the interim, contact the office if new symptoms arise. REVIEW SPECIALIST 6 months [facility] Work Phone: 1([phone]) 416-889209-19-2025 History of Present illness Narrative* Dena Caballero MD - 03/26/2025 1:00 PM EDT Images from the original note were not included. NPV REASON: IVC filter and recent b/l iliofemoral dvt Referring Provider: Dr. Vizcarra ([facility]) CURRENT ENCOUNTER: Evelio Irene is 69 y.o. male here for NPV for IVC filter and recent b/l iliofemoral dvt. 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 Underwent EKOS LYSIS 03/03 and 03/04 to the right leg up to filter Before this DVT - no reports of heavyness or swelling Taking xarelto with meals RIGHT LEG C3 Edema RIGHT LEG VENOUS EDEMA 2 and SKIN PIGMENTATION 1 RIGHT LEG CEAP: C3 RIGHT LEG VCSS SCORE: 3 LEFT LEG C3 Edema LEFT LEG VENOUS EDEMA 2 LEFT LEG CEAP: C2 LEFT LEG VCSS SCORE: 2 RIGHT LEG PRETIBIAL EDEMA: 1 RIGHT LEG Vilalta total score: 1 Right leg PTS severeity: none LEFT LEG PRETIBIAL EDEMA: 1 LEFT LEG Vilalta total score: 1 Left leg PTS severity: none Anemia CKD cr 1.95 since >10 yrs ago; patient unaware; Stage 3 CKD Dm insulin HTN BPH AFIB - RENAL CARCINOMA HISTORY s/p right nephrectomy 12-15 yrs ago - Dr. Snow in [place] - all cleared. DVT/PE - 15-20 yrs ago; maybe got some TPA; no bleeding issues; had the IVC filter and anticoagulation Right inguinal hernia repair C-scope 2022 No pain with walking First few steps the calf is a bit tight but resolves quickly - no pain Using medical grade compression stockings: no Previous vein procedures: no Previous phlebitis/DVT/PE: yes Previous venous ulcers: no just the blistering with this episode Family hx of varicose veins: dad PastMedHX: Medical History[1] Meds: Current Medications[2] Allergies: RX Allergies[3] ROS: Review of Systems Objective: Vitals: Vitals: 03/26/25 1254 BP: 124/74 Pulse: 93 SpO2: 98% Exam: No distress Breathing comfortably Not tachycardic Palpable bilateral radial pulses Abd soft, nt, nd Bilateral legs with intact pulses Bilateral perfused feet No leg edema RIGHT CFV IMAGES: LEFT CFV IMAGES: Labs: No results found for: WBC , HGB , HCT , MCV , PLT No results found for: CREATININE , BUN , NA , K , CL , CO2 Imaging: Reviewed uploaded CT and venogram images from above recent hospitalization POCUS images as above - overall compressible with exception of focal segment on the right mostly Assessment & Plan: Evelio Irene is 69 y.o. male here for NPV for IVC filter and recent b/l iliofemoral dvt. Anemia CKD cr 1.95 since >10 yrs ago; patient unaware; Stage 3 CKD Dm insulin HTN BPH AFIB - RENAL CARCINOMA HISTORY s/p right nephrectomy 12-15 yrs ago - Dr. Snow in [place] - all cleared. 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 Underwent EKOS LYSIS 03/03 and 03/04 to the right leg up to filter Before this DVT - no reports of heavyness or swelling Taking xarelto with meals CEAP/VCSS RIGHT LEG C3 Edema RIGHT LEG VCSS SCORE: 3 LEFT LEG C3 Edema LEFT LEG VCSS SCORE: 2 MINER RIGHT LEG PRETIBIAL EDEMA: 1 Right leg PTS severeity: none LEFT LEG PRETIBIAL EDEMA: 1 Left leg PTS severity: none 1) we will continue xarelto as you are doing with meals 2) please start compression therapy as below - knee high 3) you have no restrictions and I encourage increased walking/activity to continue your vein healing process. 3.1) please obtain a baseline ultrasound of your legs at the same hospital so we can have it sent to me for baseline evaluation 4) I would like to see you back 3 months here at [place] for a follow in person And you will get an [facility] Dena Caballero MD, MHS, RPVI [employer], [facility] [employer] Director, [facility], [facility] [place] Co-Director, Vascular Laboratories, [facility] [place] Division of Vascular Surgery and Endovascular Therapy [facility] [1] Past Medical History: Diagnosis Date Diabetes (Multi) [2] Current Outpatient Medications: finasteride (Proscar) 5 mg tablet, Take 1 tablet (5 mg) by mouth once daily in the morning. Take before meals., Disp: , Rfl: lisinopril 20 mg tablet, Take 1 tablet (20 mg) by mouth once daily., Disp: , Rfl: lovastatin (Altoprev) 20 mg 24 hr tablet, Take 1 tablet (20 mg) by mouth., Disp: , Rfl: metoprolol succinate XL (Toprol-XL) 25 mg 24 hr tablet, Take 1 tablet (25 mg) by mouth once daily.,Disp: , Rfl: Mery 2nd Gen Pen Needle 32 gauge x needle, , Disp: , Rfl: NovoLIN R FlexPen 100 unit/mL (3 mL) insulin pen, INJECT 30 UNITS SUBCUTANEOUSLY ONCE IN THE EVENING BEFORE MEAL, Disp: , Rfl: OneTouch Ultra Test, TEST 3 TIMES DAILY DIRECTED E11.65, Disp: , Rfl: Soliqua 100/33 100 unit-33 mcg/mL insulin pen, Inject 60 Units under the skin., Disp: , Rfl: Xarelto 20 mg tablet, TAKE 1 TABLET BY MOUTH EVERY DAY WITH EVENING MEAL, BEGIN AFTER COMPLETION OFSTARTER PACK, Disp: , Rfl: [3] No Known Allergies documented in this [facility] Work Phone: 1(633) 231-362009-19-2025 Instructions* Patient Instructions* Dena Caballero MD - 03/26/2025 1:00 PM EDT Images from the original note were not included. It was a pleasure taking care of you today and appreciate your seeing us at our [facility]. Today's plan is as follows: 1) we will continue xarelto as you are doing with meals 2) please start compression therapy as below - knee high 3) you have no restrictions and I encourage increased walking/activity to continue your vein healing process. 3.1) please obtain a baseline ultrasound of your legs at the same hospital so we can have it sent to me for baseline evaluation 4) I would like to see you back 3 months here at [place] for a follow in person And you will get an [facility] Please call the office with any questions at [phone]. You can speak to our secretaries or our clinical nurses for specific questions. For [facility] specific questions, you can also call [phone] or email at [email or web address] If you need coordinating your appointments and testing you can do these at the front desk monitor or by calling my office shortly after your visit. What is Compression Therapy? Compression therapy refers to stockings or other devices that are specially designed to support your veins and increase circulation in your legs. They improve the signs and symptoms of venous diseases by providing external support to your legs. When the leg veins do not function properly, blood canpool in the veins, causing swelling and other symptoms. Compression therapy can prevent the poolingof blood in the legs thereby decreasing associated symptoms. How do compression stockings work? Graduated compression stockings provide external support, starting with stronger compression at theankles that gradually lessens toward the top of the stocking. This external support reduces blood pooling in leg veins, thereby helping overall circulation and diminishing leg swelling throughout theday. This gradual support works in conjunction with the pumping action of the calf muscles, which also assist with circulation, to improve blood return to the heart. How do I wear compression stockings? The stockings are normally worn throughout the day. You put them on in the morning when you get outof bed and remove them before bed at night. For some people with more advanced vein disease or other causes of leg swelling, your healthcare provider may recommend you wear compression stockings during the night as well. How do I get compression stockings? Since legs come in all different shapes, lengths, and circumferences, professional measurement is important for a proper fit. This maximizes the benefit of the stockings and helps prevent injury or pain from poorly fitted garments. Below is a diagram showing you how to measure your leg to get the ri t knee or thigh high compression stocking. The strength or pressure gradient, you should wear is 20-30mmHg. HOW TO MEASURE YOUR COMPRESSION SOCKS: Resources for compression socks: [employer]/Vendors for compression socks: Adrianna Escobar We appreciate you seeing us at our [facility] It was a pleasure taking care of you today. For Vein Center specific questions email at documented in this [facility] Work Phone: 1(282) 375-483809-09-2025 Hospital Discharge instructions Patient Education 03/16/2025 12:49:56 Cystoscopy Cystoscopy [...] including vitamins, herbs, eye drops, creams, and forg-vyc-fchbekh medicines. Any problems you or family members [...] provider tells you to take them. Taking fosm-wcw-imqdpmp medicines, vitamins, herbs, and supplements. Tests You [...] Follow these instructions at home: Medicines Take yomi-iqn-chycwhe and prescription medicines only as told by [...] provider. Document Revised: 03/07/2022 Document Reviewed: 02/03/2021 AppEnsure Patient Education 2023 [place]. Follow Up Care 03/01/2025 16:08:55 With:EDY FOX, GALO Vazquez Address: [facility] [address] , [place] [address]- When: Unknown [facility] 09-09-2025 NotePatient Education Urology Cystoscopy Cystoscopy is a procedure [...] including vitamins, herbs, eye drops, creams, and bpme-mgm-qzechst medicines. ??? Any problems you or family [...] tells you to take them. ??? Taking grkm-qju-qoedjol medicines, vitamins, herbs, and supplements. Tests You [...] cystoscope to fill your bladder. The fluid willstretch your bladder so that your health care [...] these instructions at home: Medicines ??? Take zdfr-nzt-gmjuzbw and prescription medicines only as told by your health care provider. ??? If you were prescribed an antibiotic medicine, take it as told by your health care provider. Donot stop taking the antibiotic even if you [...] testing (biopsy) during your (more content not included)...[facility]08-29-2025 [place] [address] Cardiology Progress Note Signed Patient: Evelio Irene MR#: [id number] : 1955 Acct:[id number] Age/Sex: 69 / M Adm Date: 5 Loc: 4N Room: 7S6854-4 Type: ADM IN Attending Dr: Troy Rizzo [...] % (Auto) 75.8 Lymph % (Auto) 13.3 [place] % (Auto) 9.5 Eos % (Auto) 1.0 Baso % (Auto) 0.4 Nucleat RBC Rel Count 0.0 Neut # (Auto) 6.7 Lymph # (Auto) 1.2 [place] # (Auto) 0.8 Eos # (Auto) 0.1 Baso # (Auto) 0.0 PT 15.2 H INR 1.3 APTT 31.7 Fibrinogen 166 L POC Glucose 264 245 POC Glucose Comment Glu2: cleaned meter TSH 3rd Generation 1.44 03/05/25 03/05/25 07:56 11:30 Corrected WBC Uncorrected WBC Count RBC Hgb Hct MCV MCH MCHC RDW Plt Count MPV Neut % (Auto) Lymph % (Auto) [place] % (Auto) Eos % (Auto) Baso % (Auto) Nucleat RBC Rel Count Neut # (Auto) Lymph # (Auto) [place] # (Auto) Eos # (Auto) Baso # [...] 4 diabetes mellitus 5. Previous history of Kilmarnock filter placement Plan 1. Patient made the criteria for lifelong anticoagulation due to history of hypercoagulable state/factor V deficiency which documented before with previous history of PE and DVT and he had clearly recurrent DVT 2. Will add low-dose metoprolol 3. Will check a echocardiogram Documented By: Any Garcia MD 03/05/25 1326 Signed By: 03/05/25 1335 [facility]08-29-[address] [address] Hospitalist Progress Note Signed Patient: Evelio Irene MR#: [id number] : 1955 Acct:[id number] Age/Sex: 69 / M Adm Date: 5 Loc: 4N Room: 4X7960-7 Type: ADM IN Attending Dr: Troy Rizzo [...] Administration Loperamide HCl 2 mg 03/04/25 14:18 03/04/25 14:41 Loperamide 2 Mg Capsule PO 03/04/26 [...] stop his Xarelto due to it beingexpensive. Prototype Deicer Assembler recommended Pradaxa as an inexpensive alternative, but [...] patient is medically clear for discharge from [facility], I did already send his metoprolol and [...] Andres Bryant DO 03/05/25 1057 Signed By: 03/05/25 1329 03/05/256 [facility]08-28-2025 Progress note Author Andres Bryant [facility] Hospital[facility] Date/TimeAugust 2024 7[place] [address] Hospitalist Progress Note Signed Patient: Evelio Irene MR#: [id number] : 1955 Acct:[id number] Age/Sex: 69 / M Adm Date: 5 Loc: N Room: [address] [place] [address] Type: ADM IN Attending Dr: Troy Rizzo [...] 1,000 Ml IV 03/03/26 14:29 Not Given .[id number] JULIANNA Sodium Chloride 1,000 mls @ 35 [...] Ml SUBCUT 03/03/26 16:59 Not Given TID.WM.HS [facility] Protocol Insulin Aspart 7 units 03/03/25 16:30 03/04/25 08:06 Insulin Aspart 300 Units/3 Ml SUBCUT 03/03/26 16:29 Not Given TID.AC [facility] Insulin Glargine 28 units 03/03/25 22:00 03/03/25 [...] <Electronically signed by MD VERA Pascual> 03/04/25 1306 [facility] Work Phone: 1(492) 328-999108-28-2025 [place] [address] Hospitalist Progress Note Signed Patient: Evelio Irene MR#: [id number] : 1955 Acct:[id number] Age/Sex: 69 / M Adm Date: 5 Loc: 4N Room: 4D3604-0 Type: ADM IN Attending Dr: Troy Rizzo [...] 1,000 Ml IV 03/03/26 14:29 Not Given .[id number] JULIANNA Sodium Chloride 1,000 mls @ 35 [...] Ml SUBCUT 03/03/26 16:59 Not Given TID.WM.HS [facility] Protocol Insulin Aspart 7 units 03/03/25 16:30 03/04/25 08:06 Insulin Aspart 300 Units/3 Ml SUBCUT 03/03/26 16:29 Not Given TID.AC [facility] Insulin Glargine 28 units 03/03/25 22:00 03/03/25 [...] 25 Mg Tab.Er.24h PO 03/05/26 08:59 DAILY [facility] Sodium Chloride 0 ml 03/03/25 14:19 Sodium [...] 1226 Signed By: 03/04/25 1900 03/04/25 1302 [facility]08-28-2025 Consult note Author Any Garcia [facility] Date/TimeAugust 2024 11:49am [place] [address] Cardiology Consult Note Signed Patient: Evelio Irene MR#: [id number] : 1955 Acct:[id number] Age/Sex: 69 / M Adm Date: 5 Loc: Room: [address] [place] [address] Type: ADM IN Attending Dr: Troy Rizzo [...] and no additional complaints, except as documented [facility] Medical History DVT (deep venous thrombosis) Colon [...] subcutaneous pen (Novolin R FlexPen) 30unit subcut ./26/25 [History Confirmed 03/03/25] rivaroxaban 15 mg (42)-20 [...] # (Auto) 1.5 1.2 1.5 (1.00-4.8) x10E3/uL [place] # (Auto) 1.0 H 1.1 H 1.0 H (0.0-0.8) x10E3/uL Eos # (Auto) 0.1 0.1 0.1 (0.0-0.45) x10E3/uL Baso # (Auto) 0.1 0.1 0.0 (0.0-0.2) x10E3/uL 03/04/25 Range/Units 08:29 RBC 3.22 L (3.90-5.60) x10E6/uL Hgb 9.7 L (13.0-17.0) g/dL Hct 28.9 L (38.8-50.0) % Plt Count 264 (150-450) x10E3/uL Neut # (Auto) 6.0 (1.8-7.7) x10E3/uL Lymph # (Auto) 1.4 (1.00-4.8) x10E3/uL [place] # (Auto) 1.0 H (0.0-0.8) x10E3/uL Eos [...] @ 2 MG/HR 25 mls/hr INTRA-INGRID .Q4H [facility] Rx#:[id number] Oral 200 / 200 100 / 100 [...] 4 diabetes mellitus 5. Previous history of [place] filter placement Plan 1. Patient made the criteria for lifelong anticoagulation due to history of hypercoagulable state/factor V deficiency which documented before with previous history of PE and DVT and he had clearly recurrent DVT 2. Will add low-dose metoprolol 3. Will check a echocardiogram Documented By: Any Garcia MD 03/04/25 1144 Signed By: <Electronically signed by MD Any Garcia> 03/04/25 1149 [facility] Work Phone: 1([phone]) 588-771408-28-2025 [place] [address] Cardiology Consult Note Signed Patient: Evelio Irene MR#: M [id number] : 1955 Acct:[id number] Age/Sex: 69 / M Adm Date: 5 Loc: Room: [address] [place] [address] Type: ADM IN Attending Dr: Troy Rizzo [...] and no additional complaints, except as documented [facility] Medical History DVT (deep venous thrombosis) Colon [...] subcutaneous pen (Novolin R FlexPen) 30unit subcut .xymkmi97/26/25 [History Confirmed 03/03/25] rivaroxaban 15 mg (42)-20 [...] # (Auto) 1.5 1.2 1.5 (1.00-4.8) x10E3/uL [place] # (Auto) 1.0 H 1.1 H 1.0 H (0.0-0.8) x10E3/uL Eos # (Auto) 0.1 0.1 0.1 (0.0-0.45) x10E3/uL Baso # (Auto) 0.1 0.1 0.0 (0.0-0.2) x10E3/uL 03/04/25 Range/Units 08:29 RBC 3.22 L (3.90-5.60) x10E6/uL Hgb 9.7 L (13.0-17.0) g/dL Hct 28.9 L (38.8-50.0) % Plt Count 264 (150-450) x10E3/uL Neut # (Auto) 6.0 (1.8-7.7) x10E3/uL Lymph # (Auto) 1.4 (1.00-4.8) x10E3/uL [place] # (Auto) 1.0 H (0.0-0.8) x10E3/uL Eos [...] @ 2 MG/HR 25 mls/hr INTRA-INGRID .Q4H [facility] Rx#:[id number] Oral 200 / 200 100 / 100 [...] a echocardiogram Documented By: Any Garcia MD 03/04/251143 Signed By: 03/04/25 1149 [facility]08-27-2025 Consult note Author Andres Bryant [facility]Note Date/TimeAugust 2024 4:[place] [address] Hospitalist Consult Note Signed Patient: Evelio Irene MR#: [id number] : 1955 Acct:[id number] Age/Sex: 69 / M Adm Date: 5 Loc: Room: [address] [place] [address] Type: [facility] Attending Dr: Troy Rizzo MD Copies to: [...] negative unless noted below or in HPI [facility] Medical History DVT (deep venous thrombosis) Colon polyp Kilmarnock filter in place Pulmonary embolism Hypertension Renal [...] subcutaneous pen (Novolin R FlexPen) 30unit subcut .wcabco99/26/25 [History Confirmed 03/03/25] rivaroxaban 15 mg (42)-20 [...] 1,000 Ml IV 03/03/26 14:29 75 mls/hr .U75H30H JULIANNA Administration Sodium Chloride 1,000 mls @ 35 mls/hr 03/03/25 14:30 03/03/25 14:59 0.9% Sodium Chloride 1,000 Ml INTRACATH 03/03/26 14:29 35 mls/hr .Q24H JULIANNA Administration Heparin Sodium/Sodium Chloride 25,000 unit in 250 mls @ 3 mls/hr 03/03/25 15:45 Heparin IV 03/03/26 15:44 .Q24H JULIANNA Insulin Aspart 0 units 03/03/25 17:00 Insulin Aspart 300 Units/3 Ml SUBCUT 03/03/26 16:59 TID.WM.HS JULIANNA Protocol Insulin Aspart 7 units 03/03/25 16:30 Insulin Aspart 300 Units/3 Ml SUBCUT 03/03/26 16:29 TID.AC [facility] Insulin Glargine 28 units 03/03/25 22:00 Insulin Glargine 300 Units/3 Ml Insuln.Pen SUBCUT 03/03/26 21:59 QHS [facility] Lisinopril 5 mg 03/04/25 09:00 Lisinopril 5 Mg Tablet PO 03/04/26 08:59 DAILY [facility] Non-Formulary Medication 20 mg 03/04/25 09:00 Lovastatin PO 03/04/26 08:59 DAILY [facility] Sodium Chloride 0 ml 03/03/25 14:19 Sodium Chloride 0.9 % 10 Ml Syringe IV-PUSH 03/03/26 14:18 PRN PRN Flush Terazosin HCl 5 mg 03/04/25 09:00 Terazosin 5 Mg Capsule PO 03/04/26 08:59 DAILY [facility] Torsemide 20 mg 03/04/25 09:00 Torsemide 20 Mg Tablet PO 03/04/26 08:59 DAILY [facility] Exam Physical Exam Vital Signs: Temp Pulse [...] % (Auto) 69.6, Lymph % (Auto) 17.1, [place] % (Auto) 11.0, Eos % (Auto) 1.7, Baso % (Auto) 0.6, Nucleat RBC Rel Count 0.0, Neut # (Auto) 6.1, Lymph # (Auto) 1.5, [place] # (Auto) 1.0 H, Eos # (Auto) [...] Andres Bryant DO 03/03/25 1602 Signed By: <Electronically signed by Andres Bryant DO> 03/03/25 1617 [facility] Work Phone: 1(965) 738-115808-27-[address] [address] Hospitalist Consult Note Signed Patient: Evelio Irene MR#: [id number] : 1955 Acct:[id number] Age/Sex: 69 / M Adm Date: 5 Loc: 4C Room: [id number] Type: [facility] Attending Dr: Troy Rizzo MD Copies to: [...] negative unless noted below or in HPI [facility] Medical History DVT (deep venous thrombosis) Colon polyp Kilmarnock filter in place Pulmonary embolism Hypertension Renal [...] subcutaneous pen (Novolin R FlexPen) 30unit subcut .vyibdu36/26/25 [History Confirmed 03/03/25] rivaroxaban 15 mg (42)-20 [...] 1,000 Ml IV 03/03/26 14:29 75 mls/hr .[id number] JULIANNA Administration Sodium Chloride 1,000 mls @ 35 mls/hr 03/03/25 14:30 03/03/25 14:59 0.9% Sodium Chloride 1,000 Ml INTRACATH 03/03/26 14:29 35 mls/hr .Q24H JULIANNA Administration Heparin Sodium/Sodium Chloride 25,000 unit in 250 mls @ 3 mls/hr 03/03/25 15:45 Heparin IV 03/03/26 15:44 .Q24H JULIANNA Insulin Aspart 0 units 03/03/25 17:00 Insulin Aspart 300 Units/3 Ml SUBCUT 03/03/26 16:59 TID.WM.HS [facility] Protocol Insulin Aspart 7 units 03/03/25 16:30 Insulin Aspart 300 Units/3 Ml SUBCUT 03/03/26 16:29 TID.AC JULIANNA Insulin Glargine 28 units 03/03/25 22:00 Insulin Glargine 300 Units/3 Ml Insuln.Pen SUBCUT 03/03/26 21:59 QHS JULIANNA Lisinopril 5 mg 03/04/25 09:00 Lisinopril 5 Mg Tablet PO 03/04/26 08:59 DAILY JULIANNA Non-Formulary Medication 20 mg 03/04/25 09:00 Lovastatin [...] % (Auto) 69.6, Lymph % (Auto) 17.1, [place] % (Auto) 11.0, Eos % (Auto) 1.7, Baso % (Auto) 0.6, Nucleat RBC Rel Count 0.0, Neut # (Auto) 6.1, Lymph # (Auto) 1.5, [place] # (Auto) 1.0 H, Eos # (Auto) [...] By: Andres Bryant, 03/03/25 1602 Signed By: 03/03/25 1617 [facility]08-26-2025 Evaluation note* Diagnosis Onset Date Resolution Status Admit Date Bilateral lower extremity edema acuteAugust 2024 9:52amDVT (deep venous thrombosis)acuteAugust 2024 9:52amDVT, bilateral lower limbsacuteAugust 2024 9:52amAfibacuteAugust 2024 2:22pmBilateral lower extremity edemaacuteAugust 2024 2:22pm DiabetesacuteAugust 2024 2:22pmDVT, bilateral lower limbsacuteAugust 2024 2:22pmHypertensionacuteAugust 2024 2:22pm [facility] Work Phone: [phone]) 163-262708-26-2025 Evaluation note* Diagnosis Onset Date Resolution Status Admit Date DVT (deep venous thrombosis) acuteAugust 2024 9:52amBilateral lower extremity edemainactiveAugust 2024 9:52amDVT, bilateral lower limbsinactiveAugust 2024 9:52amAfib inactiveAugust 2024 2:22pmBilateral lower extremity edemainactiveAugust 2024 2:22pmDiabetesinactiveAugust 2024 2:22pmDVT, bilateral lower limbsinactiveAugust 2024 2:22pmHypertensioninactiveAugust 2024 2:22pm [facility] Work Phone: 1(991) 559-892708-26-2025 Evaluation note* Diagnosis Onset Date Resolution Status Admit Date DVT (deep venous thrombosis) acuteAugust 2024 9:52amBilateral lower extremity edemainactiveAugust 2024 9:52amDVT, bilateral lower limbsinactiveAugust 2024 9:52amAfib inactiveAugust 2024 2:22pmBilateral lower extremity edemainactiveAugust 2024 2:22pmDiabetesinactiveAugust 2024 2:22pmDVT, bilateral lower limbsinactiveAugust 2024 2:22pmHypertensioninactiveAugust 2024 2:22pmDVT (deep venous thrombosis)acuteSeptember 2024 10:16amBilateral lower extremity edemainactiveSeptember 2024 10:16amDVT, bilateral lower limbsinactiveSeptember 2024 10:16am [facility] Work Phone: 1(852) 642-445608-25-2025 Hospital Discharge instructions Patient Education 03/01/2025 10:23:02 [...] Treatment for this condition includes: Antibiotic medicine. Acne-yye-wlermvs medicines to treat discomfort. Drinking enough water [...] Follow these instructions at home: Medicines Take uihy-sxt-rspljxb and prescription medicines only as told by [...] provider. Document Revised: 01/29/2021 Document Reviewed: 02/03/2021 AppEnsure Patient Education 2023 [place]. 03/01/2025 10:19:37 Cystoscopy Cystoscopy Cystoscopy is a [...] including vitamins, herbs, eye drops, creams, and dqhk-hfm-botymra medicines. Any problems you or family members [...] provider tells you to take them. Taking bqqq-dnr-tmbeojf medicines, vitamins, herbs, and supplements. Tests You [...] Follow these instructions at home: Medicines Take bbmo-ezk-itmibky and prescription medicines only as told by [...] provider. Document Revised: 03/07/2022 Document Reviewed: 02/03/2021 [employer]ns[employer] Patient Education 2023 [place]. Follow Up Care 02/26/2025 10:22:11 With:EDY FOX, Leon Reilly, URL Address: [address] [place] [id number] When: Unknown [facility] [place] 08-25-2025 NotePatient Education Obstetrics and Gynecology Urinary [...] this condition includes: ??? Antibiotic medicine. ??? Qicx-zdr-qfsbhbf medicines to treat discomfort. ??? Drinking enough [...] these instructions at home: Medicines ??? Take yyew-rel-cfnxyvh and prescription medicines only as told by [...] Make sure you di (more content not included)...[facility]08-20-2025 Telephone encounter Note* Telephone Encounter - RAY Nieves - 02/24/2025 12:57 PM EDT Review[facility] pt today [facility]1987 Miscellaneous Notes* Telephone Encounter - RAY Nieves - 02/24/2025 12:57 PM EDT Reviewed with pt today * Telephone Encounter - ANU COBB - 02/23/2025 2:[address] report in the chart. documented in this encounterBarnes-Jewish [id number] History of Present illness Narrative* RAY Nieves [...] each before bedtime. Lancets (OneTouch Delica Plus Nddhzw57S) misc USE TWICE DAILY FOR FINGER STICK [...] days, then 20 mg daily. - HYDROcodone-acetaminophen ([place]) 5-325 MG tablet; Take 1 tablet by mouth every 6 (six) hours if needed for severe pain for up to 5 days Will have patient hold the ASA and start Xarelto as prescribed. Patient does have a Carmelina Filter in place. OARRS report generated and reviewed. [place] sent in for pt. 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 Localized edema Elevate when possible. Consider compression stockings. Continue Torsemide. Advised the swelling is likely aggravated by the current DVT. Did consult Dr. Shailesh Tello regarding treatment for the DVT. Follow up in about 2 weeks (around 03/10/2025) for Recheck. documented in this encounterBarnes-Jewish [id number] Telephone encounter Note* Telephone Encounter - ANU COBB - 02/23/2025 2:[address] report in the chart. [facility] [id number] History of Present illness Narrative* Nino Hammonds [...] each before bedtime. Lancets (OneTouch Delica Plus Nxvewh40G) misc USE TWICE DAILY FOR FINGER STICK [...] 1 week (around 02/22/2025). documented in this encounterBarnes-Jewish HospitalHttwyxnqvz63-47-9077 History of Present illness Narrative* Nino Hammonds [...] each before bedtime. Lancets (OneTouch Delica Plus Bshhqp88P) misc USE TWICE DAILY FOR FINGER STICK [...] Review, F/U med changes. documented in this encounterBarnes-Jewish HospitalAvzoauugpm82-53-9414 History of Present illness Narrative* Nino Hammonds MD - 01/11/2025 11:00 AM EDT Images from the original note were not included. HPI Follow-up Additional comments: [facility] 01/01/25 dx: back pain,URI discharged home rx for zpack,benzonate Last edited by Denita Maxwell LPN on 01/11/2025 10:48 AM. Subjective Patient ID: Evelio Irene is a 69 y.o. male who presents for Follow-up ([facility] 01/01/25 dx: backpain,URI discharged home rx for zpack,benzonate). Flowsheet Row Patient Outreach from 01/04/2025 in [facility] with Liz Pearson LPN Hospital Information ED, Hospital or Group Home Facility Discharge? ED Patient has been contacted within 2 days of being seen in the ED Yes Diagnosis back pain, upper resiratory infection. Discharge Date 01/01/25 Discharged To: Home Setting Discharge Hospital [facility] Engagement Call Start Time 922 Admission Date [...] D- dimer over 7 Call End Time 0926 Pt states his cough is much better [...] each before bedtime. Lancets (OneTouch Delica Plus Sdrexv64M) misc USE TWICE DAILY FOR FINGER STICK [...] No follow-ups on file. documented in this encounterBarnes-Jewish HospitalQjignadrse74-07-7793 History of Present illness Narrative* Nino Hammonds [...] evening and 1 each before bedtime. 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 We discussed telling boyce people [...] on October 26, 2024 documented in this encounterBarnes-Jewish HospitalNffmyvbqgr53-31-0803 Hospital Discharge instructions Patient Education 06/26/2024 11:46:33 [...] treatment? Where to find more information The [place] [employer]: www.cancer.org [employer] [employer]: www.auanet.org Contact a health care [...] provider. Document Revised: 12/18/2021 Document Reviewed: 12/18/2021 [employer]nsure Patient Education 2023 [place]. Follow Up Care 01/28/2023 11:23:23 With:EDY FOX, Leon Reilly, URL Address: [address] [place], [place] [address]- When: Unknown [facility] 12-20-2024 NotePatient Education Oncology Prostate Cancer Screening [...] Where to find more information ??? The [place] [employer]: www.cancer.org ??? [place] [employer]: www.auanet.org Contact a health care [...] men. The prostate gland (more content not included)...[facility]12-19-2024 History of Present illness Narrative* Nino Hammonds [...] each before bedtime. Lancets (OneTouch Delica Plus Chukbw43L) misc USE TWICE DAILY FOR FINGER STICK [...] with long-term current use of insulin (CMS/HCC) - POCT Glycated hemoglobin, total - FSBS log shows good control, most recent A1C is at or near goal. Continue current treatment plan as previously outlined without changes. Flu vaccine need - Influenza, high-dose seasonal, quadrivalent, PF (FWM380) (Fluzone High Dose Quad North 0.7mL dose) Follow up in about 4 months (around 10/24/2024) for DM- A1C. documented in this encounterNOMS Gcogxooozp91-75-2315 Hospital Discharge instructions Patient Education 01/29/2022 10:04:56 [...] if anything looks unusual. Men with a ereotb-ofgc-zxtfle risk for skin cancer may want to see a equipment mechanic specialist (battery tester and repairer) for an annual body check. Where to find more information National Cancer K[employer]aid: https://www.cancer.gov/about-cancer/screening Centers for Disease Control and Prevention: https://www.cdc.gov/cancer/dcpc/prevention/screening.htm [place] [employer]: https://www.cancer.org/latest-news/1-mutgdx-rgjmwhikp-zhfox-gad-xhl.html Contact a health care provider if: You [...] 03/21/2017 Document Revised: 03/13/2019 Document Reviewed: 03/21/2017 AppEnsure Patient Education 2020 [place]. Follow Up Care 01/23/2021 11:07:26 With:Leon SNOW MD, URL Address: [facility] [address], [place] [phone] When: Unknown [facility] evaluation + Plan note Future Appointments Appointment Date:01/28/2023 10:15:00 AM Scheduled Provider:Leon SNOW MD Location:[facility] Appointment Type:URO Office Visit [facility] evaluation + Plan note Future Appointments Appointment Date:01/27/2024 09:45:00 AM Scheduled Provider:Leon SNOW MD Location:[facility] Future App[facility]ments Appointment Date:06/28/2025 09:15:00 AM Scheduled Provider:Leon SNOW MD Location:[facility] Appointment Type:URO Office Visit Diagnostic Tests Pending * PSA Total 05/08/25 [facility] evaluation + Plan note Future Appointments Appointment Date:03/16/2025 01:00:00 PM Scheduled Provider:Leon SNOW MD Location:[facility] Appointment Type:URO Procedure 15 min Appointment Date:03/04/2026 08:45:00 AM Scheduled Provider:Leon SNOW MD Location:[facility] Appointment Type:URO Office Visit [facility] evaluation + Plan note Future Appointments Appointment Date:03/25/2025 09:15:00 AM Scheduled Provider: Location:[facility] Appointment Type:URO Nurse Visit Appointment Date:03/04/2026 08:45:00 AM Scheduled Provider:Leon SNOW MD Location:[facility] Appointment Type:URO Office Visit [facility] evaluation + Plan note Future Appointments Appointment Date:03/04/2026 08:45:00 AM Scheduled Provider:Leon SNOW MD Location:[facility] Appointment Type:URO Office Visit [facility] evaluation note* Diagnosis Type 2 diabetes mellitus with diabetic neuropathy, with long-term current use of insulin ([facility]) Flu vaccine need documented in this encounter [facility] HealthcareEvaluation note* Diagnosis Routine general medical examination at health care facility- Primary Routine general medical examination at a health care facility ACP (advance care planning) Other specified counseling Type 2 diabetes mellitus with diabetic chronic kidney disease (CMS/HCC) Chronic kidney disease, stage 3b (HCC) ([facility]) Chronic pulmonary embolism ([facility]) Chronic pulmonary embolism documented in this encounter [facility] HealthcareEvaluation note* Diagnosis Acute bronchiolitis due to unspecified organism- Primary documented in this encounter [facility] HealthcareEvaluation note* Diagnosis Acute bilateral low back pain without sciatica- Primary Type 2 diabetes mellitus with chronic kidney disease, with long-term current use of insulin, unspecified CKD stage (HCC) Localized edema Edema History of primary malignant neoplasm of kidney documented in this encounter [facility] HealthcareEvaluation note* Diagnosis Acute bilateral low back pain without sciatica- Primary History of primary malignant neoplasm of kidney Localized edema Edema Chronic kidney disease, stage 3b (CMS-HCC) documented in this encounter [facility] HealthcareEvaluation note* Diagnosis Acute deep vein thrombosis (DVT) of iliac vein of right lower extremity (HCC)- Primary Bladder wall thickening Other specified disorder of bladder History of DVT (deep vein thrombosis) Localized edema Edema documented in this encounter [facility] HealthcareEvaluation noteNo assessment information availableSelect [facility] Work Phone: Evaluation note* Diagnosis VTE (venous thromboembolism)- Primary Embolism and thrombosis of unspecified site Acute bilateral deep vein thrombosis (DVT) of iliac veins of lower extremities documented in this encounter [facility] Work Phone: Evaluation note* Diagnosis Atypical atrial flutter- Primary FPC (current) use of anticoagulants Long-term (current) use of anticoagulants 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 Chronic deep vein thrombosis (DVT) of proximal vein of both lower extremities (Multi) Essential (primary) hypertension Unspecified essential hypertension Mixed hyperlipidemia Type 2 diabetes mellitus without complication, with long-term current use of insulin (Multi) BMI 32.0-32.9,adult documented in this encounter [facility] Work Phone: Evaluation note* Diagnosis Atypical atrial flutter- Primary superintendent terminal (current) use of anticoagulants Long-term (current) use of anticoagulants 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 Chronic deep vein thrombosis (DVT) of proximal vein of both lower extremities (Multi) Essential (primary) hypertension Unspecified essential hypertension Mixed hyperlipidemia Type 2 diabetes mellitus without complication, with long-term current use of insulin (Multi) BMI 32.0-32.9,adult Atypical atrial flutter documented in this encounter [facility] Work Phone: Evaluation note* Diagnosis Type 2 diabetes mellitus with diabetic neuropathy, with long-term current use of insulin (HCC)- Primary Hypercoagulable state (HHS-HCC) Primary hypercoagulable state Factor V Leiden mutation (HHS-HCC) Primary hypercoagulable state Acute deep vein thrombosis (DVT) of distal vein of right lower extremity (HCC) documented in this encounter [facility] Narrative No data available for this section [facility] Hospital Discharge instructions No data available for this section [facility] No data available for this section [facility] progress note Author Andres Bryant [facility] HospitalNote Date/TimeAugust 2024 1:29pm[place] [address] Hospitalist Progress Note Signed Patient: Evelio Irene MR#: [id number] : 1955 Acct:[id number] Age/Sex: 69 / M Adm Date: 5 Loc: 4N Room: [address] [place] [address] Type: ADM IN Attending Dr: Troy Rizzo [...] Ml SUBCUT 03/03/26 16:59 Not Given TID.WM.[facility] Protocol Insulin Aspart 7 units 03/03/25 16:30 [...] Administration Loperamide HCl 2 mg 03/04/25 14:18 03/04/25 14:41 Loperamide 2 Mg Capsule PO 03/04/26 [...] stop his Xarelto due to it beingexpensive. Prototype Deicer Assembler recommended Pradaxa as an inexpensive alternative, but [...] patient is medically clear for discharge from [facility], I did already send his metoprolol and [...] 03/05/25 1057 Signed By: <Electronically signed by Andrse Bryant DO> 03/05/25 1329 <Electronically signed by MD VERA Pascual> 03/05/25 1326 [facility] Work Phone: Progress note Author Any Garcia [facility] HospitalNote Date/TimeAugust 2024 1:35pm[place] [address] Cardiology Progress Note Signed Patient: Evelio Irene MR#: [id number] : 1955 Acct:[id number] Age/Sex: 69 / M Adm Date: 5 Loc: 4N Room: [address] [place] [address] Type: ADM IN Attending Dr: Troy Rizzo [...] 98 Room Air 3 03/05/25 11:33 03/05/25 11:33 03/05/25 11:33 03/05/25 11:33 03/05/25 11:33 03/05/25 11:33 03/03/25 13:45 Const General: cooperative, comfortable, no [...] % (Auto) 75.8 Lymph % (Auto) 13.3 Duchesne % (Auto) 9.5 Eos % (Auto) 1.0 Baso % (Auto) 0.4 Nucleat RBC Rel Count 0.0 Neut # (Auto) 6.7 Lymph # (Auto) 1.2 Duchesne # (Auto) 0.8 Eos # (Auto) 0.1 Baso # (Auto) 0.0 PT 15.2 H INR 1.3 APTT 31.7 Fibrinogen 166 L POC Glucose 264 245 POC Glucose Comment Glu2: cleaned meter TSH 3rd Generation 1.44 03/05/25 03/05/25 07:56 11:30 Corrected WBC Uncorrected WBC Count RBC Hgb Hct MCV MCH MCHC RDW Plt Count MPV Neut % (Auto) Lymph % (Auto) Duchesne % (Auto) Eos % (Auto) Baso % (Auto) Nucleat RBC Rel Count Neut # (Auto) Lymph # (Auto) Duchesne # (Auto) Eos # (Auto) Baso # [...] <Electronically signed by MD Any Garcia> 03/05/25 1335 [facility] Work Phone: Revych for referral (narrative)No reason for referral information availableSelect Medical [facility] Work Phone: reason for visit Narrative* Cardiac Stress Testing (Routine) - AuthorizedSpecialtyDiagnoses / ProceduresReferred By Contact Referred To ContactCardiology Diagnoses Atypical atrial flutter Procedures Stress Test KS CV STRS TST XERS&/OR RX CONT ECG TRCG ONLY Shlomo Oviedo, CENSUS CLERK-RESEARCH TEST ENGINE EVALUATOR [address] [facility], [facility] [address] [place] [address] Phone: tel: fax: Referral IDStatusReasonStart DateExpiration DateVisits RequestedVisits [id number]/[id number] [facility] Work Phone: Summary Purpose Family History No Family History Records Found Relationship Condition Age at Onset Recorded Date/T gama brother Leukemia Unknown Malignant neoplasm of prostateUnknownmotherDiabetes mellitusUnknownfather Malignant neoplasm of stomachUnknown Advance Directives No Advanced Directives Records Found [...] 2:22pm Hypertension March 03, 2025 2: 22pm Chief Complaint Admit Date bilateral dvt, [facility] last night March 02, 2025 9:52am Right Leg DVT March 03, 2025 11 :06am Right Leg DVT March 03, 2025 2: 22pm 3 week f/u thrombectomy March 29, 2025 10:16am Reason for Visit Admit Date DVT (deep venous thrombosis) February 9:52am Bilateral lower extremity edema February 062024 9:52am DVT, bilateral lower limbs March 02, 2025 9:52am Afib March 03, 2025 2: 22pm Bilateral lower extremity edema February 062024 2:22pm Diabetes March 03, 2025 2: 22pm DVT, bilateral lower limbs March 03, 2025 2:22pm Hypertension March 03, 2025 2: 22pm Chief Complaint Admit Date bilateral dvt, [facility] ER last night March 02, 2025 9:52am Right Leg DVT March 03, 2025 11 :06am Right Leg DVT March 03, 2025 2: 22pm 3 week f/u thrombectomy March 29, 2025 10:16am i48.4 i10 e78.2 e11.9 April 09, 2025 12:18pm Reason for Visit Admit Date DVT (deep venous thrombosis) February 9:52am Bilateral lower extremity edema February 062024 9:52am DVT, bilateral lower limbs March 02, 2025 9:52am Afib March 03, 2025 2: 22pm Bilateral lower extremity edema February 062024 2:22pm Diabetes March 03, 2025 2: 22pm DVT, bilateral lower limbs March 03, 2025 2:22pm Hypertension March 03, 2025 2: 22pm DVT (deep venous thrombosis) March 092024 10:16am Bilateral lower extremity edema Septembe r 2024 10:16am DVT, bilateral lower limbs March 10:16am Additional Source Comments (unrecognized sect ion and content) No Status Records FoundNo Status Records FoundNo Status Records FoundNo Status Records FoundNo Status Records FoundNo Status Records FoundNo Status Records FoundNo Status Records FoundNo Status Records Found INFORMATION SOURCE (unrecogn ized section and content) DATE CREATED AUTHOR 09/01/2021 [facility] DATE CREATED AUTHOR AUTHOR'S ORGANIZ ATION 06/28/2022 [facility] DATE CREATED AUTHOR AUTHOR'S ORGANIZ ATION 02/27/2025 [facility] DATE CREATED AUTHOR AUTHOR'S ORGANIZ ATION 04/18/2025 [facility] DATE CREATED AUTHOR AUTHOR'S ORGANIZ ATION 04/19/2025 [facility] DATE CREATED AUTHOR AUTHOR'S ORGANIZ ATION 04/19/2025 [facility] DATE CREATED AUTHOR AUTHOR'S ORGANIZ ATION 04/22/2025 [facility] DATE CREATED AUTHOR AUTHOR'S ORGANIZ ATION 04/27/2025 [facility] DATE CREATED AUTHOR AUTHOR'S ORGANIZ ATION 05/11/2025 [facility] EPIC Care Team (unrecognized sect ion and content) Team MemberRelationshipSpecialtyStart DateEnd Date Nino Hammonds MD [address] [facility] [address] [place] [address] PCP - ACO Reach11/29/22 Nino Hammonds MD [address] [facility] [address] [place] [address] PCP - GeneralInternal Medicine12/26/22Team MemberRelationshipSpecialtyStart Date End Date Nino Hammonds MD [address] [facility] [address] [place] [address] PCP - ACO Reach11/29/22 Nino Hammonds MD [address] [facility] [address] [place] [address] PCP - GeneralInternal Medicine12/26/22Team MemberRelationshipSpecialtyStart Date End Date Nino Hammonds MD [address] [facility] [address] [place] [address] PCP - ACO Reach11/29/22 Nino Hammonds MD [address] [facility] [address] [place] [address] PCP - GeneralInternal Medicine12/26/22Team MemberRelationshipSpecialtyStart Date End Date Nino Hammonds MD [address] [facility] [address] [place] [address] PCP - ACO Reach11/29/22 Nino Hammonds MD [address] [facility] [address] [place] [address] PCP - GeneralInternal Medicine12/26/22Team MemberRelationshipSpecialtyStart Date End Date Nino Hammonds MD [address] [place] [address] PCP - [facility]CO [facility]11/29/22 Nino Hammonds MD [address] [facility] [address] [place] [address] PCP - GeneralInternal Medicine12/26/22Team MemberRelationshipSpecialtyStart Date End Date Nino Hammonds MD [address] [place] [address] PCP - [facility]CO Reach11/29/22 Nino Hammonds MD [address] [place] [address] PCP - GeneralInternal Medicine12/26/22Team MemberRelationshipSpecialtyStart Date End Date Nino Hammonds MD [address] [place] [address] PCP - [facility]11/29/22 Nino Hammonds MD [address] [place] [address] PCP - GeneralInternal Medicine12/26/22Team MemberRelationshipSpecialtyStart Date End Date Nino Hammonds MD [address] [place] [address] PCP - [facility]11/29/22 Nino Hammonds MD [address] [place] [address] PCP - GeneralInternal Medicine12/26/22 Peggy Wade, STRUCTURAL STEEL WORKER APPRENTICE [address] [place] [address] [facility]erP[facility]02/18/25Te MemberRelationshipSpecialtyStart DateEnd Date Nino Hammonds MD [address] [place] [address] PCP - [facility]11/29/22 Nino Hammonds MD [address] [place] [address] PCP - [facility]12/26/22 Peggy Wade, STRUCTURAL STEEL WORKER APPRENTICE [address] [place] [address] Social WorkerP[facility]02/18/25Team MemberRelationshipSpecialtyStart DateEnd Date Nino Hammonds MD [address] [place] [address] PCP - [facility] Reach11/29/22 Nino Hammonds MD [address] [place] [address] PCP - GeneralInternal Medicine12/26/22 Peggy Wade, STRUCTURAL STEEL WORKER APPRENTICE [address] [place] [address] [facility]02/18/25 Team Status: Active Member Role Status Dates Nino Hammonds II MD Primary Care Provider Active Team Status: Inactive Member Role Status Dates Nino Hammonds II MD Primary Care Provider Active Start: March 02, 2025 End: March 02, 2025Arabella Peres ProviderActiveStart: March 02, 2025 End: March 02, 2025 Team Status: Inactive Member Role Status Dates Nino Hammonds II MD Primary Care Provider Active Start: March 02, 2025 End: March 02, 2025Amalia Ca REVIEW SPECIALIST-CAttending ProviderActiveStart: March 02, 2025 End: March 02, 2025 Team Status: Active Member Role Status Dates Nino Hammonds II MD Primary Care Provider Active Start: March 03, 2025 Arabella Peres ProviderActiveStart: March 03, 2025 Troy Rizzo MDOther ProviderActiveStart: March 03, 2025 Team Status: Inactive Member Role Status Dates Nino Hammonds II MD Primary Care Provider Active Start: March 03, 2025 End: March 05, 2025Kenny Peres ProviderActiveStart: March 03, 2025 End: March 05, 2025Arabella Peres ProviderActiveStart: March 03, 2025 End: March 05nuvia Bass RNOther ProviderActiveStart: March 03, 2025 End: March 05, 2025Dee Dee Macias RNOther ProviderActiveStart: March 03, 2025 End: March 05, 2025Mirtha Flores RNOther ProviderActiveStart: March 03, 2025 End: March 05, 2025Molan Mcqueen RNOther ProviderActiveStart: March 03, 2025 End: March 05, 2025Sarah Mirza RNOther ProviderActiveStart: March 03, 2025 End: March 05, 2025Bruna Valencia RNOther ProviderActiveStart: March 03, 2025 End: March 05, 2025Tanya Gerber MDOther ProviderActiveStart: March 03, 2025 End: March 05, 2025Ronchristiane Emerson , DOOther ProviderActiveStart: March 03, 2025 End: March 05, 2025Musallegra Reyes MDOther ProviderActiveStart: March 03, 2025 End: March 05, 2025Jac Barrera DOOther ProviderActiveStart: March 03, 2025 End: March 05ndjuan carlos Walton MDOther ProviderActiveStart: March 03, 2025 End: March 05, 2025Alicia Hill MDOther ProviderActiveStart: March 03, 2025 End: March 05, 2025Michaeshady New DOOther ProviderActiveStart: March 03, 2025 End: March 05, 2025Janine Mcmahan ProviderActiveStart: March 03, 2025 End: March 05, 2025LyHouston Oconnellher ProviderActiveStart: March 03, 2025 End: March 05, 2025Shannen Clark MDOther ProviderActiveStart: March 03, 2025 End: March 05, 2025Janine Pires ProviderActiveStart: March 03, 2025 End: March 05, 2025Janine Iglesias ProviderActiveStart: March 03, 2025 End: March 05, 2025Micmaria teresa Farrell DOOther ProviderActiveStart: March 03, 2025 End: March 05, 2025Janine Irwin ProviderActiveStart: March 03, 2025 End: March 05, 2025Janine Castillo ProviderActiveStart: March 03, 2025 End: March 05zabrina Trevino REVIEW SPECIALIST-COther ProviderActiveStart: March 03, 2025 End: March 05dkenneth Wiggins APRNOther ProviderActiveStart: March 03, 2025 End: March 05, 2025Osvaldo Lyle MDOther ProviderActiveStart: March 03, 2025 End: March 05, 2025Juan Alcocer MDOther ProviderActiveStart: March 03, 2025 End: March 05, 2025Khbelinda Jean MDOther ProviderActiveStart: March 03, 2025 End: March 05, 2025Marizol Johnson , DOOther ProviderActiveStart: March 03, 2025 End: March 05, 2025Atif Mack , DOOther ProviderActiveStart: March 03, 2025 End: March 05, 2025Yady Kaur , APRNOther ProviderActiveStart: March 03, 2025 End: March 05, 2025Andres Bryant , DOOther ProviderActiveStart: March 03, 2025 End: March 05, 2025Oli Burnett MDOther ProviderActiveStart: March 03, 2025 End: March 05, 2025Zaida Oviedo APRNOther ProviderActiveStart: March 03, 2025 End: March 05camryn Blackwell APRNOther ProviderActiveStart: March 03, 2025 End: March 05bienvenido Damian MDOther ProviderActiveStart: March 03, 2025 End: March 05, 2025Nino Cosme MDOther ProviderActiveStart: March 03, 2025 End: March 05jamaica Cottrell DOOther ProviderActiveStart: March 03, 2025 End: March 05, 2025Janine Tate ProviderActiveStart: March 03, 2025 End: March 05charis Hartman MDOther ProviderActiveStart: March 03, 2025 End: March 05nemo Haro APRNOther ProviderActiveStart: March 03, 2025 End: March 05, 2025Mopilo Dinh MDOther ProviderActiveStart: March 03, 2025 End: March 05, 2025Janine Way ProviderActiveStart: March 03, 2025 End: March 05, 2025Janine Metz ProviderActiveStart: March 03, 2025 End: March 05, 2025Ragrabiel Ramirez MDOther ProviderActiveStart: March 03, 2025 End: March 05, 2025Ning Craven APRNOther ProviderActiveStart: March 03, 2025 End: March 05, 2025Fernandez Hays ProviderActiveStart: March 03, 2025 End: March 05, 2025Saevangelina Hamilton RNOther ProviderActiveStart: March 03, 2025 End: March 05, 2025Batsheva Olivo RNOther ProviderActiveStart: March 03, 2025 End: March 05, 2025W Reuben Felix DOOther ProviderActiveStart: March 03, 2025 End: March 05, 2025Hagordo Zavala MDOther ProviderActiveStart: March 03, 2025 End: March 05, 2025Any Garcia MDOther ProviderActiveStart: March 03, 2025 End: March 05, 2025Shlomo Oviedo APRJaysonher ProviderActiveStart: March 03, 2025 End: March 05, 2025Carrie Sims MDOther ProviderActiveStart: March 03, 2025 End: March 05, 2025Modesta Crocker MDOther ProviderActiveStart: March 03, 2025 End: March 05RICHMOND Swartz-BCOther ProviderActiveStart: March 03, 2025 End: March 05, 2025Team MemberRelationshipSpecialtyStart DateEnd Date Nino Hammonds MD [address] [facility] [address] [place] [address] PCP - ACO 11/29/22 Nino Hammonds MD [address] [facility] [address] [place] [address] PCP - [facility]12/26/22 Team Status: Inactive Member Role Status Dates Nino Hammonds II MD Primary Care Provider Active Start: March 29, 2025 End: March 29, 2025Amalia Ca REVIEW SPECIALIST-CAttending ProviderActiveStart: March 29, 2025 End: March 29, 2025Team MemberRelationshipSpecialtyStart DateEnd Date Nino Hammonds MD [address] [facility] [address] [place] [address] PCP - [facility]03/05/25Team MemberRelationshipSpecialtyStart Date End Date Nino Hammonds MD [address] [facility] [address] [place] [address] PCP - [facility]03/05/25 Team Status: Inactive Member Role Status Dates Nino Hammonds II MD Primary Care Provider Active Start: March 02, 2025 End: March 02, 2025Amalia Luevano NP-CAttending ProviderActiveStart: March 02, 2025 End: March 02, 2025 Team Status: Inactive Member Role Status Dates Nino Hammonds II MD Primary Care Provider Active Start: March 29, 2025 End: March 29, 2025Amalia Luevano NP-CAttending ProviderActiveStart: March 29, 2025 End: March 29, 2025 Team Status: Inactive Member Role Status Dates Nino Hammonds II MD Primary Care Provider Active Start: April 09, 2025 End: April 09, 2025Shlomo Oviedo APRNAtkelly ProviderActiveStart: April 09, 2025 End: April 09, 2025Team MemberRelationshipSpecialtyStart DateEnd Date Nino Hammonds MD [address] [facility] [address] [place] [address] PCP - GeneralInternal Medicine03/05/25Team MemberRelationshipSpecialtyStart Date End Date Nino Hammonds MD [address] [place] [address] PCP - [facility]CO Reach11/29/22 Nino Hammonds MD [address] [place] [address] PCP - GeneralInternal Medicine12/26/22 Reason for Visit (unrecogniz ed section and content) ReasonCommentsDiabetesReasonCommentsMedicare Annual Wellness [facility]: [facility],URI discharged home rx for zpack,benzonateReasonCommentsBack PainResultsEdemaReasonCommentsResultsHad CT abdomen completed d/t history of kidney cancer. Here to discuss results of that. ReasonCommentsNew Patient VisitBIL DVT - REF BY DR. TROY VIZCARRA [facility] Goals (unrecognized section and content) Goals may be documented in a n alternate section Source Comments (unrecognize d section and content) In the event this informatio n is protected by the Federal Confidentiality of Alcohol and Drug Abuse Patient Records regulations: The Federal rules restrict any use of the information to criminally investigate or prosecute any alcohol or drug abuse patient.[facility] FOR RECORDS PERTAINING TO PATIENTS WHO ARE [...] BE BASED ON THE PRIMARY CLINICAL RECORDS. [facility]. provides no warranty or guarantee of the accuracy or completeness of information in this document.
[2025-06-18 14:24] LABS: Prostate Specific Antigen Dx 1.91 ng/mL (<=4.00)
== END 2025-06-18 13:10 | disposition home or self-care (01) ==
PROVIDERS: PCP Internal Medicine; Visit Provider Urology
DX: R97.20 Elevated prostate specific antigen [PSA] (principal)
CPT/HCPCS: 36415; 84153